=== PATIENT | male | born 1950 | race Caucasian/White ===

== ENCOUNTER 2016-10-31 16:05 | Inpatient (IN) | payer OTHER ==
[~2016-10-31] VITALS: Ht 170.2 cm; Wt 64.0 kg
[~2016-10-31 16:05] MED LIST: ARIP30 PO; ASPI325T PO; BENZ1TAB PO; LACT12%T TOPICAL; LITH450 PO; LOTR15T TOPICAL; METF500 PO; NOVOLOGSS SQ; SALS500T PO; TRAZ50TA78 PO
[2016-10-31 16:14] VITALS: BP 130/70; PULSE 64; RESP 20; TEMP 97; O2SAT 96
[2016-10-31 16:15] VITALS: BP 141/67; PULSE 62; RESP 16; O2SAT 96
[2016-10-31] MEDS ORDERED: BENZ2TAB PO (16:27)
[2016-10-31] MEDS ORDERED: ASPI325T PO (16:27)
[2016-10-31] MEDS ORDERED: PRIL20CA9 PO (16:27)
[2016-10-31] MEDS ORDERED: SALS500T PO (16:27)
[2016-10-31] MEDS ORDERED: LITH450T PO (16:27)
[2016-10-31] MEDS ORDERED: LAC-12LO3 TOPICAL (16:27)
[2016-10-31 17:00] VITALS: BP 136/66; PULSE 67; RESP 16; O2SAT 98
--- NOTE | 2016-10-31 17:19 | PD ---
HPI Chief Complaint: Psychiatric Symptoms Time Seen by Provider: 17:03 Travel History International Travel<30 days: No Contact w/Intl Traveler<30days: No Traveled to known affect area: No History of Present Illness HPI 66yo M with PMH of schizophrenia, DM presents to the ED under Wills Act for refusing medication and care, yelling out at roommate and staff. Pt is from [facility] and has been here for schizophrenia several times. Pt follows commands but not answering questions. No signs of trauma on him. VS stable. PFSH Past Medical History Arthritis: No Asthma: No Atrial Fibrillation: Yes Bipolar Disorder: Yes Anxiety: Yes Depression: Yes Heart Rhythm Problems: Yes Cardiovascular Problems: Yes High Cholesterol: Yes Chest Pain: No Congestive Heart Failure: No COPD: Yes Cerebrovascular Accident: No Dementia: Yes Diabetes: Yes Patient Takes Glucophage: Yes Diminished Hearing: No Endocrine: Yes Gastrointestinal Disorders: Yes GERD: Yes Genitourinary: No Hiatal Hernia: No Hypertension: Yes Immune Disorder: No Implanted Vascular Access Dvce: No Musculoskeletal: No Neurologic: Yes Psychiatric: Yes (paranoid schizophrenia ) Reproductive: No Respiratory: Yes Immunizations Current: Yes Migraines: No Pneumonia: Yes Schizophrenia: Yes Sleep Apnea: No Thyroid Disease: No Triglycerides - High: Yes Ulcer: No Tetanus Vaccination: Unknown PNEUMOCCOCAL Vaccine (Year): 2 Past Surgical History Abdominal Surgery: No Cardiac Surgery: No Ear Surgery: No Endocrine Surgery: No Eye Surgery: No Genitourinary Surgery: No Gynecologic Surgery: No Oral Surgery: No Thoracic Surgery: No Other Surgery: Yes Family History Family Hypercholesterolemia: Yes Social History Alcohol Use: No (UNKNOWN) Tobacco Use: Yes (UNKNOWN) Substance Use: No (mikey) Allergies-Medications (Allergen,Severity, Reaction): Coded Allergies: Calamine (Verified Allergy, Severe, 10/31/16) Olanzapine (Verified Allergy, Intermediate, THROMBOCYTOPENIA, 10/31/16) Reported Meds & Prescriptions Reported Meds & Active Scripts Active Keflex (Cephalexin) 500 Mg Cap 500 Mg PO Q12H 7 Days Reported Sperry Carbonate ER (Sperry Carbonate) 450 Mg Tab 450 Mg PO HS Salsalate 500 Mg Tab 1,000 Mg PO TID Benztropine (Benztropine Mesylate) 2 Mg Tab 2 Mg PO DAILY Aspirin 325 Mg Tab 325 Mg PO DAILY Prilosec (Omeprazole) 20 Mg Cap 30 Mg PO DAILY Review of Systems Except as stated in HPI: all other systems reviewed are Neg Physical Exam Narrative GENERAL: 66yo M not in distress. SKIN: Warm and dry. HEAD: Atraumatic. Normocephalic. EYES: Pupils equal and round. EOMI. No scleral icterus. No injection or drainage. ENT: No nasal bleeding or discharge. Mucous membranes pink and moist. NECK: Trachea midline. No JVD. CARDIOVASCULAR: Regular rate and rhythm. No murmur appreciated. RESPIRATORY: No accessory muscle use. Clear to auscultation. Breath sounds equal bilaterally. GASTROINTESTINAL: Abdomen soft, non-tender, nondistended. No rebound tenderness or guarding. MUSCULOSKELETAL: No obvious deformities. No clubbing. No cyanosis. No edema. NEUROLOGICAL: Awake and alert. Following commands but not answering questions so neuro exam is limited. PSYCHIATRIC: Inappropriate mood and affect; poor insight and judgment. Data Data Last Documented VS Vital Signs Date Time Temp Pulse Resp B/P Pulse Ox O2 Delivery O2 Flow Rate FiO2 11/01/16 02:11 70 18 130/62 97 Room Air 10/31/16 16:14 97.0 Orders Complete Blood Count With Diff (10/31/16 17:05) Comprehensive Metabolic Panel (10/31/16 17:05) Urinalysis - C+S If Indicated (10/31/16 17:05) Psych Screen (10/31/16 17:05) Urine Culture (10/31/16 17:00) Ceftriaxone Inj (Rocephin Inj) (10/31/16 18:45) Alcohol (Ethanol) (10/31/16 19:19) Drug Screen, Random Urine (10/31/16 19:19) Sperry (Li) (10/31/16 22:11) Salicylates (Aspirin) (10/31/16 22:12) Admit Order (Ed Use Only) (11/01/16 ) Labs Laboratory Tests Test 10/31/16 10/31/16 17:00 22:20 Sodium Level 136 MEQ/L Potassium Level 4.7 MEQ/L Chloride Level 106 MEQ/L Carbon Dioxide Level 23.7 MEQ/L Anion Gap 6 MEQ/L Blood Urea Nitrogen 10 MG/DL Creatinine 0.87 MG/DL Estimat Glomerular Filtration 88 ML/MIN Rate Random Glucose 142 MG/DL Calcium Level 9.4 MG/DL Total Bilirubin 0.7 MG/DL Aspartate Amino Transf 27 U/L (AST/SGOT) Alanine Aminotransferase 37 U/L (ALT/SGPT) Alkaline Phosphatase 105 U/L Total Protein 7.1 GM/DL Albumin 3.7 GM/DL Urine Opiates Screen NEG Urine Barbiturates Screen NEG Urine Amphetamines Screen NEG Urine Benzodiazepines Screen NEG Urine Cocaine Screen NEG Urine Cannabinoids Screen NEG Ethyl Alcohol Level LESS THAN 3 MG/DL White Blood Count 8.4 TH/MM3 Red Blood Count 4.46 MIL/MM3 Hemoglobin 13.9 GM/DL Hematocrit 41.4 % Mean Corpuscular Volume 92.7 FL Mean Corpuscular Hemoglobin 31.2 PG Mean Corpuscular Hemoglobin 33.7 % Concent Red Cell Distribution Width 14.1 % Platelet Count 313 TH/MM3 Mean Platelet Volume 7.5 FL Neutrophils (%) (Auto) 66.9 % Lymphocytes (%) (Auto) 19.4 % Monocytes (%) (Auto) 7.9 % Eosinophils (%) (Auto) 4.9 % Basophils (%) (Auto) 0.9 % Neutrophils # (Auto) 5.7 TH/MM3 Lymphocytes # (Auto) 1.6 TH/MM3 Monocytes # (Auto) 0.7 TH/MM3 Eosinophils # (Auto) 0.4 TH/MM3 Basophils # (Auto) 0.1 TH/MM3 CBC Comment DIFF FINAL Differential Comment Urine Color YELLOW Urine Turbidity HAZY Urine pH 6.5 Urine Specific [place] 1.013 Urine Protein 30 mg/dL Urine Glucose (UA) NEG mg/dL Urine Ketones NEG mg/dL Urine Occult Blood SMALL Urine Nitrite NEG Urine Bilirubin NEG Urine Urobilinogen LESS THAN 2.0 MG/DL Urine Leukocyte Esterase LARGE Urine RBC 7 /hpf Urine WBC /hpf Urine WBC Clumps MANY Urine Squamous Epithelial <1 /hpf Cells Urine Amorphous Sediment OCC Urine Bacteria FEW /hpf Microscopic Urinalysis Comment CATH-CULTURE IND Salicylates Level 5.4 MG/DL Sperry Level 0.3 MEQ/L [facility] Medical Decision Making Medical Screen Exam Complete: Yes Emergency Medical Condition: Yes Differential Diagnosis Schizophrenic vs. psychosis vs. UTI vs. electrolyte abnormality Narrative Course 66yo M with schizophrenia here as wills act because he was not taking his medication and being violent. Pt is calm here and following commands but will not answer my questions. He did mumble something in frustration when I persisted in my questioning. Labs reviewed, no leukocytosis. Creatinine normal. UA showed large leukocyte. Pt given ceftriaxone 1gm IV. VS stable. Pt is medically clear for psych evaluation. Diagnosis Primary Impression: Schizophrenia Qualified Code: F20.9 - Schizophrenia, unspecified type Additional Impression: UTI (urinary tract infection) Qualified Code: N39.0 - Urinary tract infection with hematuria, site unspecified Med/Other Pt SpecificInfo: Prescription(s) given Scripts Cephalexin (Keflex)500 Mg [id number] Mg PO Q12H 7 Days Ref 0 Prov:Brittney Robertson DO 10/31/16 Brittney Robertson DO Oct 31, 2016 17:19
[2016-10-31 17:26] LABS: AUTOMATED NEUTROPHIL # 5.7 TH/MM3 (1.8-7.7); BASOPHIL # 0.1 TH/MM3 (0-0.2); BASOPHIL % 0.9 % (0.0-2.0); EOSINOPHIL # 0.4 TH/MM3 (0-0.4); EOSINOPHIL % 4.9 % (0.0-4.0); HEMATOCRIT 41.4 % (39.0-51.0); HEMO FLAGS DIFF FINAL; LYMPH % 19.4 % (9.0-44.0); LYMPHOCYTE # 1.6 TH/MM3 (1.0-4.8); MEAN CELL VOLUME 92.7 FL (80.0-100.0); MEAN CORPUSCULAR HEMOGLOBIN 31.2 PG (27.0-34.0); MEAN CORPUSCULAR HGB CONC 33.7 % (32.0-36.0); MONO % 7.9 % (0.0-8.0); NEUT % 66.9 % (16.0-70.0); PLATELET COUNT 313 TH/MM3 (150-450); RED BLOOD COUNT 4.46 MIL/MM3 (4.50-5.90); RED CELL DISTRIBUTION WIDTH 14.1 % (11.6-17.2); WHITE BLOOD COUNT 8.4 TH/MM3 (4.0-11.0)
[2016-10-31 17:38] LABS: BACTERIA, URINE FEW /hpf; BLOOD, URINE SMALL (NEG); COMMENT (UR) CATH-CULTURE IND; CULTURE IF INDICATED CATH CULTURE IND; GLUCOSE,URINE NEG (NEG); KETONE, URINE NEG (NEG); NITRITE,URINE NEG (NEG); PH, URINE 6.5 (5.0-8.5); SQUAMOUS EPITHELIAL CELL URINE <1 /hpf (0-5); URINE COLOR YELLOW (YELLW/STRAW)
[2016-10-31 17:58] LABS: ALKALINE PHOSPHATASE 105 U/L (45-117); TOTAL BILIRUBIN ADULT 0.7 MG/DL (0.2-1.0)
[2016-10-31 18:00] VITALS: BP 129/85; PULSE 66; RESP 16; O2SAT 98
[2016-10-31 18:07] LABS: ALT (GPT) 37 U/L (12-78); ANION GAP 6 MEQ/L (5-15); AST (GOT) 27 U/L (15-37); BICARBONATE 23.7 MEQ/L (21.0-32.0); BLOOD UREA NITROGEN 10 MG/DL (7-18); CHLORIDE 106 MEQ/L (98-107); GLOMERULAR FILTRATION RATE 88 ML/MIN (>89); SODIUM (NA) 136 MEQ/L (136-145)
[2016-10-31 18:10] LABS: POTASSIUM 4.7 MEQ/L (3.5-5.1)
[2016-10-31] MEDS ORDERED: CEPH-460 PO (18:37)
[2016-10-31] MEDS ORDERED: cefTRIAXone INJ 1,000 MG in SODIUM CHLORIDE 0.9% INJ 100 ML IV ONE (18:45)
[2016-10-31 19:04] VITALS: BP 128/70; PULSE 66; RESP 14; O2SAT 95
[2016-10-31 19:56] LABS: AMPHETAMINE, URINE NEG (NEG); BARBITURATES, URINE NEG (NEG); COCAINE, URINE NEG (NEG)
[2016-10-31 22:14] VITALS: BP 122/63; PULSE 68; RESP 20; O2SAT 96
[2016-11-01 02:11] VITALS: BP 130/62; PULSE 70; RESP 18; O2SAT 97
[2016-11-01] MEDS ORDERED: ACETAMINOPHEN 325 MG TAB PO PRN (07:45)
[2016-11-01] MEDS ORDERED: BENZTROPINE MESYLATE 2 MG/2 ML VIAL IM PRN (07:45)
[2016-11-01] MEDS ORDERED: ALUMINUM/MAGNESIUM/SIMETH 30 ML CUP PO PRN (07:45)
[2016-11-01] MEDS ORDERED: traZODone HCL 50 MG TAB PO PRN (07:45)
[2016-11-01] MEDS ORDERED: BENZTROPINE MESYLATE 1 MG TAB PO PRN (07:45)
[2016-11-01] MEDS ORDERED: LORazepam 2 MG/ML VIAL IM PRN (07:45)
[2016-11-01] MEDS ORDERED: MAGNESIUM HYDROXIDE SUSP 30 ML CUP PO PRN (07:45)
--- NOTE | 2016-11-01 08:02 | HHI.HP ---
Provisional Diagnosis Admission Date 11/01/2015 [place] I. 1. Schizoaffective disorder, bipolar type, acute exacerbation Rule out component of delirium from UTI 2. Dementia [place] II. Deferred [place] V. GAF is 20 presently Certification of Person's Competence To Provide Express and Informed Consent I have personally examined Chavez Carpio , a person being served at [facility] on, Nov 01, 2016 07:42. Express and informed consent means consent voluntarily given in writing, by a competent person, after sufficient explanation and disclosure of the subject matter involved to enable the person to make a knowing and willful decision without any element of force, fraud, deceit, duress, or other form of constraint or coercion. This person is 18 years of age or older, is not now known to be incompetent to consent to treatment with a guardian advocate, and does not have a health care surrogate or proxy currently making medical treatment decisions. I have found this person to be one of the following: [] Competent to provide express and informed consent, as defined above, for voluntary admission to this facility and is competent to provide express and informed consent for treatment. He/she has the consistent capacity to make well reasoned, willful, and knowing decisions concerning his or her medical or mental health treatment. The person fully and consistently understands the purpose of the admission for examination/placement and is fully capable of personally exercising all rights assured [place] [x] Incompetent to provide express and informed consent to voluntary admission, and this is incompetent to provide express and informed consent to treatment. The person must be transferred to involuntary status and a petition for a guardian advocate filed with the Circuit Court. [] Refusing to provide express and informed consent to voluntary admission but is competent to provide express and informed consent for treatment. The person must be discharged or transferred to involuntary status. Form shall be completed within 24 hours of a person's arrival at the receiving facility and filed in the clinical record of each person: 1. Admitted on a voluntary basis 2. Permitted to provide express and informed consent to his/her own treatment 3. Allowed to transfer from involuntary to voluntary status 4. Prior to permitting a person to consent to his or her own treatment after having been previously found incompetent to consent to treatment. History of Present Illness Capacity: Lacks Capacity HPI Mr. Carpio is a 66-year-old male with a history of schizoaffective disorder, dementia and history of alcohol use disorder who presents under a Wills act by non-psychiatric physician Ewa Reich alleging that the patient is refusing medications and care, yelling at roommate, peers and staff and is acutely agitated. Patient is well known to the psychiatric service here and has multiple prior psychiatric hospitalizations, most recently in May of last year. Electronic medical record reviewed. Patient seen and examined. Chart reviewed. Case discussed with nurse in the J- pod. On my examination today, the patient is volitionally mute. There is some stupor but no waxy flexibility or posturing/stereotypies or other features of catatonia. He appears internally preoccupied. Affect is somewhat dysphoric. He does not voice any suicidal or homicidal ideation. He does endeavor to follow simple commands. The only speech that I am able to get from him is with extended questioning when he says in apparent frustration "Oh, God" and huddles under the covers. Psychiatric interview is limited by patient's inability or unwillingness to participate in interview. I am unable to obtain any past psychiatric, family, chemical dependency or social history from this patient at this time for this reason as well, although these data are amply documented in the medical record. I did place a call to patient's [facility] at [phone]. No answer. Left a voicemail requesting a call back. Review of Systems ROS Limitations: Uncooperative, Poor Historian Other Unable to obtain. Past Psych History Psychological trauma history Unable to obtain Substance Abuse History Drugs/Alcohol past 12 months Unable to obtain. UTox neg and EtOH undetectable. Past Family Social History Coded Allergies: Calamine (Verified Allergy, Severe, 10/31/16) Olanzapine (Verified Allergy, Intermediate, THROMBOCYTOPENIA, 10/31/16) Past Medical History See EMR. Active Scripts Cephalexin (Keflex)500 Mg [id number] Mg PO Q12H 7 Days Ref 0 Prov:Brittney Robertson DO 10/31/16 Reported Medications [place] Carbonate ER 450 Mg [id number] Mg PO HS Ref 0 10/31/16 Salsalate 500 Mg Tab1,000 Mg PO TID #180 TAB Ref 0 10/31/16 Benztropine 2 Mg Tab2 Mg PO DAILY #60 TAB Ref 0 10/31/16 Aspirin 325 Mg [id number] Mg PO DAILY #30 TAB Ref 0 10/31/16 Omeprazole (Prilosec)20 Mg Cap30 Mg PO DAILY #30 CAP Ref 0 10/31/16 Discontinued Reported Medications Lactic Acid (Ammonium Lactate) (Lac-Hydrin)12% Lotn1 Applic TOPICAL BID #225 ML Ref 0 10/31/16 Current Medications Medications (Trade) Dose Ordered Sig/Ashanti Route Start Time Stop Time Status Last Admin (Aspirin) 325 mg DAILY PO 11/01/16 09:00 UNV (Cogentin) 2 mg DAILY PO 11/01/16 09:00 UNV (Keflex) 500 mg Q12H PO 11/01/16 07:45 UNV (Eskalith Sr) 450 mg HS PO 11/01/16 21:00 UNV Non-Formulary Medication 1,000 mg TID PO 11/01/16 09:00 UNV Family History Unable to obtain Social History Unable to obtain Patient's Strengths (min. 2) In a monitored setting. Retains some verbal fluency. Physical Exam Physical exam completed by ED provider. On my examination today, the patient appears to be in no acute physical distress. He is somewhat disheveled but otherwise well-nourished and well-developed. Except as above, no motoric abnormalities noted at this time. Labs and vital signs reviewed. Vital Signs Vital Signs Date Time Temp Pulse Resp B/P Pulse Ox O2 Delivery O2 Flow Rate FiO2 11/01/16 02:11 70 18 130/62 97 Room Air 10/31/16 16:14 97.0 Lab Results Item Value Date Time White Blood Count 8.4 TH/MM3 10/31/16 1700 Hemoglobin 13.9 GM/DL 10/31/16 1700 Platelet Count 313 TH/MM3 10/31/16 1700 Sodium Level 136 MEQ/L 10/31/16 1700 Potassium Level 4.7 MEQ/L 10/31/16 1700 Chloride Level 106 MEQ/L 10/31/16 1700 Carbon Dioxide Level 23.7 MEQ/L 10/31/16 1700 Blood Urea Nitrogen 10 MG/DL 10/31/16 1700 Creatinine 0.87 MG/DL 10/31/16 1700 Estimat Glomerular Filtration Rate 88 ML/MIN L 10/31/16 1700 Aspartate Amino Transf (AST/SGOT) 27 U/L 10/31/16 1700 Alanine Aminotransferase (ALT/SGPT) 37 U/L 10/31/16 1700 Alkaline Phosphatase 105 U/L 10/31/16 1700 [place] Level 0.3 MEQ/L L 10/31/16 2220 Toxicology negative and alcohol level undetectable. Urinalysis concerning for UTI. Urine culture pending. Mental Status Examination Patient is in hospital gown. He is fairly disheveled. He is somewhat stuporous and chiefly volitionally mute. No other motoric abnormalities noted. Unable to assess mood or thought content. He does appear internally preoccupied and his affect is restricted and dysphoric. He does not verbalize any suicidal or homicidal ideation but allegedly has been recently agitated and is unreliable to contract for safety. Insight and judgment are presently absent. Previous Suicide Attempts: No Previous Homicide Attempts: No Assessment & Plan Problem List: (1) Schizoaffective disorder, bipolar type ICD Code: F25.0 (2) Dementia ICD Code: F03.90 Assessment & Plan This is a 66-year-old male with psychiatric history as detailed above who presents from his assisted living facility under a Wills act. On my examination today the patient is stuporous and volitionally mute but per the Wills act was allegedly agitated and refusing medications at his facility. Patient has a history of similar behavior in the past when he is decompensated. I will plan to admit the patient to the inpatient psychiatric unit for safety , observation and stabilization. --Admit inpatient --Involuntary status. I've completed first opinion. Consult for second opinion. Request healthcare surrogate and guardian advocate. --Consult to the hospitalist for medical management of the patient including his UTI. In the meantime I will continue his Keflex as recommended by the ED provider and other medical medications. --Continue Abilify 30 mg daily, scheduled Cogentin and lithium at bedtime. --Patient is presently somewhat stuporous although he does not have other signs of catatonia. If catatonia should become more prominent, to consider IM Ativan. --Ativan as needed for anxiety, Cogentin as needed for EPS, trazodone as needed for sleep --Physical therapy consultation --Vitals every shift --Counselor to see --Disposition planning --Estimated length of stay: 10-13 days Discharge Planning Pending psychiatric stabilization Request HC Surrog/Guard Advoc?: Yes Shawn Parikh MD Nov 01, 2016 08:02
[2016-11-01] MEDS: ASPIRIN 325 MG TAB PO SCH (09:00)
[2016-11-01] MEDS ORDERED: SALSALATE PO SCH (09:00)
[2016-11-01] MEDS: ARIPiprazole 30 MG TAB PO SCH (09:00)
[2016-11-01] MEDS: BENZTROPINE MESYLATE 2 MG TAB PO SCH (09:00)
[2016-11-01] MEDS: NICOTINE 21 MG/24 HR PATCH T-DERMAL SCH (09:00)
[2016-11-01] MEDS: CEPHALEXIN MONOHYDRATE 500 MG CAP PO SCH ×2 (09:00→21:43)
[2016-11-01] MEDS ORDERED: DEXTROSE 50% IN WATER 50 ML VIAL(D50) IV PUSH PRN (09:15)
[2016-11-01] MEDS ORDERED: GLUCAGON 1 MG/ML VIAL OTHER PRN (09:15)
[2016-11-01 10:26] VITALS: BP 118/68; PULSE 73; RESP 18; O2SAT 94
[2016-11-01 10:30] VITALS: BP 133/74; PULSE 71; RESP 16; TEMP 98.1; O2SAT 96
[2016-11-01] MEDS: INSULIN ASPART SUPPLEMENTAL SCALE SQ SCH ×3 (12:08→20:51)
--- NOTE | 2016-11-01 12:32 | PD.CONS ---
HPI Service [facility] Consult Requested By Dr. Parikh Reason for Consult UTI assist with medical management [facility] Diagnoses: History of Present Illness This is a 66-year-old male patient with past medical history which includes dementia,schizophrenia, atrial fibrillation, diabetes mellitus, hypertension hyperlipidemia. Patient is currently sitting in a geriatric chair and inpatient psychiatric center. Patient responds to name but is unable to provide any meaningful information. Patient is unable to follow commands. Patient is minimally participating with exam went into to evaluate patient balls up fist and becomes rigid. Therefore information gathered from prior computerized charting. We've been consulted for assistance with UTI and medical management. Review of Systems ROS Limitations: Combative, Poor Historian Past Family Social History Allergies: Coded Allergies: Calamine (Verified Allergy, Severe, 10/31/16) Olanzapine (Verified Allergy, Intermediate, THROMBOCYTOPENIA, 10/31/16) Past Medical History Atrial fibrillation, diabetes mellitus, hypertension, hyperlipidemia Past Surgical History Unable to obtain at this time Reported Medications [place] Carbonate ER ([place] Carbonate) 450 Mg Tab 450 Mg PO HS Salsalate 500 Mg Tab 1,000 Mg PO TID Benztropine (Benztropine Mesylate) 2 Mg Tab 2 Mg PO DAILY Aspirin 325 Mg Tab 325 Mg PO DAILY Prilosec (Omeprazole) 20 Mg Cap 30 Mg PO DAILY Active Ordered Medications Current Medications Medications (Trade) Dose Ordered Sig/Ashanti Route Start Time Stop Time Status Last Admin (Aspirin) 325 mg DAILY PO 11/01/16 09:00 11/01/16 09:00 (Cogentin) 2 mg DAILY PO 11/01/16 09:00 11/01/16 09:00 (Keflex) 500 mg Q12H PO 11/01/16 09:00 11/01/16 09:00 (Eskalith Sr) 450 mg HS PO 11/01/16 21:00 Non-Formulary Medication 1,000 mg TID PO 11/01/16 09:00 Hold (Abilify) 30 mg DAILY PO 11/01/16 09:00 11/01/16 09:00 (Ativan) 0.5 mg Q12H PRN PO 11/01/16 07:45 (Ativan Inj) 0.5 mg Q12H PRN IM 11/01/16 07:45 (Tylenol) 650 mg Q4H PRN PO 11/01/16 07:45 (Milk Of Magnesia Liq) 30 ml DAILY PRN PO 11/01/16 07:45 (Mag-Al Plus Susp Liq) 30 ml Q6H PRN PO 11/01/16 07:45 (Habitrol 21 Mg Patch.24 Hr) 1 patch DAILY T-DERMAL 11/01/16 09:00 (Desyrel) 50 mg HS PRN PO 11/01/16 07:45 (Cogentin) 1 mg Q12H PRN PO 11/01/16 07:45 (Cogentin Inj) 1 mg Q12H PRN IM 11/01/16 07:45 Miscellaneous Information 1 DAILY T-DERMAL 11/02/16 09:00 (Glucophage) 500 mg BIDPC PO 11/01/16 18:00 (D50w (Vial) Inj) 25 ml UNSCH PRN IV PUSH 11/01/16 09:15 (Glucagon Inj) 1 mg UNSCH PRN OTHER 11/01/16 09:15 Family History Unable to obtain at this time Social History Prior to hospitalization patient was living in [facility] In review of records reports patient smokes one packs cigarettes per day Physical Exam Vital Signs Vital Signs Date Time Temp Pulse Resp B/P Pulse Ox O2 Delivery O2 Flow Rate FiO2 11/01/16 10:26 73 18 118/68 94 Room Air 11/01/16 02:11 70 18 130/62 97 Room Air 10/31/16 22:14 68 20 122/63 96 Room Air 10/31/16 19:24 66 14 10/31/16 19:04 66 14 128/70 95 Room Air 10/31/16 18:00 66 16 129/85 98 Room Air 10/31/16 17:01 67 16 10/31/16 17:00 67 16 136/66 98 Room Air 10/31/16 16:15 62 16 141/67 96 Room Air 10/31/16 16:14 97.0 64 20 130/70 96 Physical Exam GENERAL: This is a elderly 66 room male appears older than stated age, in no apparent distress. EYES: Extraocular motions intact. No scleral icterus. No injection or drainage. ENT: Nose without bleeding, purulent drainage or septal hematoma. Throat without erythema, tonsillar hypertrophy or exudate. Uvula midline. Airway patent. NECK: Trachea midline. No JVD CARDIOVASCULAR: Distant Regular rate and rhythm without murmurs, gallops, or rubs. RESPIRATORY: Diminished likely due to poor effort GASTROINTESTINAL: Abdomen soft, non-tender, nondistended. MUSCULOSKELETAL: Extremities without clubbing, cyanosis, or edema. No joint tenderness, effusion, or edema noted. No calf tenderness. NEUROLOGICAL: Awake. Unable to follow commands provide meaningful information. No focal deficits identified, 3-4 out of 5 muscle strength in all muscle groups. Laboratory Laboratory Tests Test 10/31/16 10/31/16 17:00 22:20 White Blood Count 8.4 Red Blood Count 4.46 Hemoglobin 13.9 Hematocrit 41.4 Mean Corpuscular Volume 92.7 Mean Corpuscular Hemoglobin 31.2 Mean Corpuscular Hemoglobin 33.7 Concent Red Cell Distribution Width 14.1 Platelet Count 313 Mean Platelet Volume 7.5 Neutrophils (%) (Auto) 66.9 Lymphocytes (%) (Auto) 19.4 Monocytes (%) (Auto) 7.9 Eosinophils (%) (Auto) 4.9 Basophils (%) (Auto) 0.9 Neutrophils # (Auto) 5.7 Lymphocytes # (Auto) 1.6 Monocytes # (Auto) 0.7 Eosinophils # (Auto) 0.4 Basophils # (Auto) 0.1 CBC Comment DIFF FINAL Differential Comment Urine Color YELLOW Urine Turbidity HAZY Urine pH 6.5 Urine Specific [place] 1.013 Urine Protein 30 Urine Glucose (UA) NEG Urine Ketones NEG Urine Occult Blood SMALL Urine Nitrite NEG Urine Bilirubin NEG Urine Urobilinogen LESS THAN 2.0 Urine Leukocyte Esterase LARGE Urine RBC 7 Urine WBC Urine WBC Clumps MANY Urine Squamous Epithelial <1 Cells Urine Amorphous Sediment OCC Urine Bacteria FEW Microscopic Urinalysis Comment CATH-CULTURE IND Sodium Level 136 Potassium Level 4.7 Chloride Level 106 Carbon Dioxide Level 23.7 Anion Gap 6 Blood Urea Nitrogen 10 Creatinine 0.87 Estimat Glomerular Filtration 88 Rate Random Glucose 142 Calcium Level 9.4 Total Bilirubin 0.7 Aspartate Amino Transf 27 (AST/SGOT) Alanine Aminotransferase 37 (ALT/SGPT) Alkaline Phosphatase 105 Total Protein 7.1 Albumin 3.7 Urine Opiates Screen NEG Urine Barbiturates Screen NEG Urine Amphetamines Screen NEG Urine Benzodiazepines Screen NEG Urine Cocaine Screen NEG Urine Cannabinoids Screen NEG Ethyl Alcohol Level LESS THAN 3 Salicylates Level 5.4 [place] Level 0.3 Date/Time Procedure Status Source Growth 10/31/16 17:00 Urine Culture Received Urine Catheterized Urine Pending Result Diagram: 10/31/16 1700 10/31/16 1700 Assessment and Plan Assessment and Plan This is a 66-year-old male patient with past medical history which includes atrial fibrillation, diabetes mellitus, hypertension hyperlipidemia. Patient is currently sitting in a geriatric chair and inpatient psychiatric center. Patient responds to name but is unable to provide any meaningful information. Patient is unable to follow commands. Patient is minimally participating with exam went into to evaluate patient balls up fist and becomes rigid. Therefore information gathered from prior computerized charting. We've been consulted for assistance with UTI and medical management. Urinary tract infection patient given Rocephin times one in emergency department and started on Keflex will continue 14 days Urinalysis reviewed await urine culture history of atrial fibrillation patient currently with regular rate and rhythm- no interventions at this time Continue aspirin daily Diabetes mellitus and prior possible stations patient has been on metformin will initiate metformin 500 mg twice a day with meals and start low-dose sliding scale insulin coverage continue to monitor Dementia continue Abilify History of hypertension per med reconciliation patient is not on any antihypertensives and blood pressure is within normal limits at this time Continue to monitor blood pressure trend History of hyperlipidemia according to med reconciliation patient is not on any statins Lipid profile pending Schizophrenia management per psychiatric team DVT prophylaxis early ambulation Discussed plan of care with patient, RN and Dr. Franco Discussed Condition With The exam, history, and the medical decision-making described in the above note were completed with the assistance of the mid-level provider. I reviewed and agree with the findings presented. I attest that I had a [id number] encounter with the patient on the same day, and personally performed and documented my assessment and findings in the medical record. Ivon Devi Nov 01, 2016 12:32 Ulysses Franco MD Nov 11, 2016 13:06
--- NOTE | 2016-11-01 13:18 | PD.CONS ---
Provisional Diagnosis Admission Date Nov 01, 2016 at 07:38 [place] I. 1. Schizoaffective disorder, bipolar type, acute exacerbation Rule out component of delirium from UTI 2. Dementia [place] II. Deferred [place] V. GAF is 20 presently History of Present Illness Service Psychiatry Consult Requested By Primary Care Physician [facility] HPI Mr. Carpio is a 66-year-old male with a history of schizoaffective disorder, dementia and history of alcohol use disorder who presents under a Wills act by non-psychiatric physician Ewa Reich alleging that the patient is refusing medications and care, yelling at roommate, peers and staff and is acutely agitated. Patient is well known to the psychiatric service here and has multiple prior psychiatric hospitalizations, most recently in May of last year. Electronic medical record reviewed. Patient seen and examined. Chart reviewed. Case discussed with nurse in the J- pod. On my examination today, the patient is volitionally mute. There is some stupor but no waxy flexibility or posturing/stereotypies or other features of catatonia. He appears internally preoccupied. Affect is somewhat dysphoric. He does not voice any suicidal or homicidal ideation. He does endeavor to follow simple commands. The only speech that I am able to get from him is with extended questioning when he says in apparent frustration "Oh, God" and huddles under the covers. Psychiatric interview is limited by patient's inability or unwillingness to participate in interview. I am unable to obtain any past psychiatric, family, chemical dependency or social history from this patient at this time for this reason as well, although these data are amply documented in the medical record. I did place a call to patient's [facility] at [phone]. No answer. Left a voicemail requesting a call back. 11/01/16 Above note dictated by Dr. Parikh reviewed and agreed with. Patient seen on unit with medical student Barbara, patient alert appears to recognize me though is quite selective in his responses with him mumbled one or 2 word responses markedly distracted glancing over his right shoulder as if responding to internal stimuli. Dr. parikh has signed first opinion petition supporting Wills act. I agree. Patient does meet criteria for involuntary psychiatric hospitalization under the Wills act. Thus I will cosign second opinion petition supporting Wills act Past Family Social History Coded Allergies: Calamine (Verified Allergy, Severe, 10/31/16) Olanzapine (Verified Allergy, Intermediate, THROMBOCYTOPENIA, 10/31/16) Active Scripts Cephalexin (Keflex)500 Mg [id number] Mg PO Q12H 7 Days Ref 0 Prov:Brittney Robertson DO 10/31/16 Reported Medications [place] Carbonate ER 450 Mg Weo125 Mg PO HS Ref 0 10/31/16 Salsalate 500 Mg Tab1,000 Mg PO TID #180 TAB Ref 0 10/31/16 Benztropine 2 Mg Tab2 Mg PO DAILY #60 TAB Ref 0 10/31/16 Aspirin 325 Mg [id number] Mg PO DAILY #30 TAB Ref 0 10/31/16 Omeprazole (Prilosec)20 Mg Cap30 Mg PO DAILY #30 CAP Ref 0 10/31/16 Discontinued Reported Medications Lactic Acid (Ammonium Lactate) (Lac-Hydrin)12% Lotn1 Applic TOPICAL BID #225 ML Ref 0 10/31/16 Current Medications Medications (Trade) Dose Ordered Sig/Ashanti Route Start Time Stop Time Status Last Admin (Aspirin) 325 mg DAILY PO 11/01/16 09:00 11/01/16 09:00 (Cogentin) 2 mg DAILY PO 11/01/16 09:00 11/01/16 09:00 (Keflex) 500 mg Q12H PO 11/01/16 09:00 11/01/16 09:00 (Eskalith Sr) 450 mg HS PO 11/01/16 21:00 Non-Formulary Medication 1,000 mg TID PO 11/01/16 09:00 Hold (Abilify) 30 mg DAILY PO 11/01/16 09:00 11/01/16 09:00 (Ativan) 0.5 mg Q12H PRN PO 11/01/16 07:45 (Ativan Inj) 0.5 mg Q12H PRN IM 11/01/16 07:45 (Tylenol) 650 mg Q4H PRN PO 11/01/16 07:45 (Milk Of Magnesia Liq) 30 ml DAILY PRN PO 11/01/16 07:45 (Mag-Al Plus Susp Liq) 30 ml Q6H PRN PO 11/01/16 07:45 (Habitrol 21 Mg Patch.24 Hr) 1 patch DAILY T-DERMAL 11/01/16 09:00 (Desyrel) 50 mg HS PRN PO 11/01/16 07:45 (Cogentin) 1 mg Q12H PRN PO 11/01/16 07:45 (Cogentin Inj) 1 mg Q12H PRN IM 11/01/16 07:45 Miscellaneous Information 1 DAILY T-DERMAL 11/02/16 09:00 (Glucophage) 500 mg BIDPC PO 11/01/16 18:00 (D50w (Vial) Inj) 25 ml UNSCH PRN IV PUSH 11/01/16 09:15 (Glucagon Inj) 1 mg UNSCH PRN OTHER 11/01/16 09:15 Patient's Strengths (min. 2) In a monitored setting. Retains some verbal fluency. Physical Exam Vital Signs Vital Signs Date Time Temp Pulse Resp B/P Pulse Ox O2 Delivery O2 Flow Rate FiO2 11/01/16 10:26 73 18 118/68 94 Room Air 10/31/16 16:14 97.0 Mental Status Examination Speech: Hesitant, Slow, Other (patient very little response hesitant slow minimal) Orientation: Person Memory: Impaired (describe) Thought Process: Loose Association Thought Content: Unremarkable Hallucination Type: Auditory (appears to be responding to internal stimuli) Attention and Concentration: Easily Distracted Suicidal Ideation: No Previous Suicide Attempts: No Homicidal Ideation: No Previous Homicide Attempts: No Insight: Poor Judgement: Poor Affect: Other (decreased range and intensity) Mood: Other (restricted) Motor Activity: Abnormal gait-specify Assessment & Plan Problem List: (1) Schizoaffective disorder, bipolar type ICD Code: F25.0 (2) Dementia ICD Code: F03.90 Assessment & Plan Estimated LOS: days Request HC Surrog/Guard Advoc?: Yes Ravi Fleming MD Nov 01, 2016 13:18
[2016-11-01] MEDS: metFORMIN HCL 500 MG TAB PO SCH (18:24)
[2016-11-01 18:41] VITALS: BP 125/70; PULSE 70; RESP 18; TEMP 98.5; O2SAT 95
[2016-11-01] MEDS: LITHIUM CARBONATE 450 MG CONTROLLED RELEASE TAB PO SCH (21:00)
[2016-11-02] MEDS: INSULIN ASPART SUPPLEMENTAL SCALE SQ SCH ×4 (06:20→22:22)
[2016-11-02] MEDS: ARIPiprazole 30 MG TAB PO SCH (09:00)
[2016-11-02] MEDS: CEPHALEXIN MONOHYDRATE 500 MG CAP PO SCH (09:00)
[2016-11-02] MEDS: ASPIRIN 325 MG TAB PO SCH (09:00)
[2016-11-02] MEDS: metFORMIN HCL 500 MG TAB PO SCH ×2 (09:00→22:22)
[2016-11-02] MEDS: BENZTROPINE MESYLATE 2 MG TAB PO SCH (09:00)
[2016-11-02] MEDS: REMOVE OLD PATCH T-DERMAL SCH (09:00)
[2016-11-02] MEDS: NICOTINE 21 MG/24 HR PATCH T-DERMAL SCH (09:00)
[2016-11-02 09:47] LABS: ANION GAP 7 MEQ/L (5-15); BICARBONATE 25.7 MEQ/L (21.0-32.0); BLOOD UREA NITROGEN 23 MG/DL (7-18); CHLORIDE 109 MEQ/L (98-107); GLOMERULAR FILTRATION RATE 103 ML/MIN (>89); HDL CHOLESTEROL 44.8 MG/DL (40.0-60.0); LDL CHOLESTEROL 120 MG/DL (0-99); POTASSIUM 4.1 MEQ/L (3.5-5.1); SODIUM (NA) 142 MEQ/L (136-145)
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
--- NOTE | 2016-11-02 13:45 | HHI.PR ---
Subjective Remarks Follow-up Urinary tract infection, diabetes mellitus, hyperlipidemia and history of atrial fibrillation. Patient seen an inpatient psychiatric day room. Continues to be confused- in no acute distress. Offers no medical complaints at this time Objective Vitals Vital Signs Date Time Temp Pulse Resp B/P Pulse Ox O2 Delivery O2 Flow Rate FiO2 11/01/16 18:41 98.5 70 18 125/70 95 I/O 11/01/16 11/01/16 11/01/16 11/02/16 11/02/16 11/02/16 07:00 15:00 23:00 07:00 15:00 23:00 Intake Total 1320 ml 0 ml 120 ml Balance 1320 ml 0 ml 120 ml Intake Oral 1320 ml 0 ml 120 ml # Voids 2 3 1 Result Diagram: 10/31/16 1700 11/02/16 0806 Objective Remarks GENERAL: This is a elderly 66 room male appears older than stated age, in no apparent distress. EYES: Extraocular motions intact. No scleral icterus. No injection or drainage. ENT: Nose without bleeding, purulent drainage or septal hematoma. Throat without erythema, tonsillar hypertrophy or exudate. Uvula midline. Airway patent. NECK: Trachea midline. No JVD CARDIOVASCULAR: Distant Regular rate and rhythm without murmurs, gallops, or rubs. RESPIRATORY: Diminished likely due to poor effort GASTROINTESTINAL: Abdomen soft, non-tender, nondistended. MUSCULOSKELETAL: Extremities without clubbing, cyanosis, or edema. No joint tenderness, effusion, or edema noted. No calf tenderness. NEUROLOGICAL: Awake. Unable to follow commands provide meaningful information. No focal deficits identified, 3-4 out of 5 muscle strength in all muscle groups. A/P Assessment and Plan This is a 66-year-old male patient with past medical history which includes atrial fibrillation, diabetes mellitus, hypertension hyperlipidemia. Patient is currently sitting in a geriatric chair and inpatient psychiatric center. Patient responds to name but is unable to provide any meaningful information. Patient is unable to follow commands. Patient is minimally participating with exam went into to evaluate patient balls up fist and becomes rigid. Therefore information gathered from prior computerized charting. We've been consulted for assistance with UTI and medical management. Urinary tract infection patient given Rocephin times one in emergency department and on Keflex Urinalysis reviewed await urine culture reveals Klebsiella pneumonia pansensitive DC Keflex and start Cipro 10 days history of atrial fibrillation patient currently with regular rate and rhythm- no interventions at this time Continue aspirin daily Diabetes mellitus and prior possible stations patient has been on metformin will initiate metformin 500 mg twice a day with meals and start low-dose sliding scale insulin coverage continue to monitor Dementia continue Abilify History of hypertension per med reconciliation patient is not on any antihypertensives and blood pressure is within normal limits at this time Continue to monitor blood pressure trend hyperlipidemia Lipid profile reviewed [id number] Patient also has DM ASCVD score 24% Start Lipitor 40 mg daily recommend patient follow up with PCP for further monitoring of lipids and LFT BUN elevated indicating dehydration Patient with poor by mouth intake please encourage by mouth fluid intake. Schizophrenia management per psychiatric team DVT prophylaxis early ambulation Patient appears medically stable will sign off if patient's condition changes or further assistance is needed please reconsult. Recommend patient follow up with PCP after discharge for further lipid monitoring as well as monitoring of LFTs. Also recommend patient complete total of 10 days of cipro Discussed plan of care with patient, RN and Ivon Tolliver Nov 02, 2016 13:45
[2016-11-02] MEDS ORDERED: LIPI40TA PO (15:52)
[2016-11-02] MEDS ORDERED: CIPR250T52 PO (17:17)
[2016-11-02 20:13] VITALS: BP 127/67; PULSE 70; RESP 18; TEMP 98.2; O2SAT 95
[2016-11-02] MEDS: ATORVASTATIN 40 MG TAB PO SCH (21:00)
[2016-11-02] MEDS: LITHIUM CARBONATE 450 MG CONTROLLED RELEASE TAB PO SCH (21:00)
[2016-11-02] MEDS ORDERED: ATORVASTATIN 10 MG TAB PO SCH (21:00)
[2016-11-02] MEDS: CIPROFLOXACIN 250 MG TAB PO SCH (22:22)
[2016-11-02] MEDS ORDERED: QUEtiapine FUMARATE 25 MG TAB PO ONE (22:30)
[2016-11-03] MEDS ORDERED: LORazepam 2 MG/ML VIAL IM ONE (01:15)
[2016-11-03 05:53] VITALS: BP 122/66; PULSE 64; RESP 16; TEMP 97.8; O2SAT 96
[2016-11-03] MEDS: INSULIN ASPART SUPPLEMENTAL SCALE SQ SCH ×4 (06:13→19:46)
[2016-11-03 08:48] VITALS: BP 122/66; PULSE 64; RESP 16; TEMP 97.8; O2SAT 96
[2016-11-03] MEDS: metFORMIN HCL 500 MG TAB PO SCH ×2 (09:00→18:00)
[2016-11-03] MEDS: NICOTINE 21 MG/24 HR PATCH T-DERMAL SCH (09:00)
[2016-11-03] MEDS: CIPROFLOXACIN 250 MG TAB PO SCH ×2 (09:00→20:19)
[2016-11-03] MEDS: ARIPiprazole 30 MG TAB PO SCH (09:00)
[2016-11-03] MEDS: REMOVE OLD PATCH T-DERMAL SCH (09:00)
[2016-11-03] MEDS: BENZTROPINE MESYLATE 2 MG TAB PO SCH (09:00)
[2016-11-03] MEDS: ASPIRIN 325 MG TAB PO SCH (09:00)
[2016-11-03 09:30] LABS: HEMOGLOBIN A1a 0.9 %; HEMOGLOBIN A1b 1.1 %; HEMOGLOBIN Ao 83.2 %; HEMOGLOBIN LA1C 2.7 %; HEMOGLOBIN P3 4.1 %
--- NOTE | 2016-11-03 10:23 | HHI.PYPN ---
Subjective Remarks Patient was seen and case discussed with nursing. Patient is more talkative compared to yesterday. He mumbles things that are nonsensical. He is responding to internal stimuli at times yelling at things that are not there. Sexually inappropriate wagging his tongue at nurses. Refuse medications last night but compliant this morning. Objective Alert: Yes [place]: Person Mood: Agitated Affect: Labile Memory Intact: Immediate (impaired) Hallucinations: Other (unknown) Delusions: No Delusion Type: Other (unknown) Suicidal: Ideation (would not answer) Homicidal: Ideation (would not answer) Insight/Judgement Poor Labs Date/Time Procedure Status Source Growth 10/31/16 17:00 Urine Culture - Final Complete Urine Catheterized Urine Klebsiella Pneumoniae Vitals/IOs Vital Signs Date Time Temp Pulse Resp B/P Pulse Ox O2 Delivery O2 Flow Rate FiO2 11/03/16 08:48 97.8 64 16 122/66 96 11/01/16 10:26 Room Air Intake and Output 11/02/16 11/02/16 11/03/16 08:00 16:00 00:00 Intake Total 0 ml 960 ml 480 ml Balance 0 ml 960 ml 480 ml Assessment & Plan Problem List: (1) Schizoaffective disorder, bipolar type ICD Code: F25.0 (2) Dementia ICD Code: F03.90 Assessment & Plan Continue current treatment plan Justification for Cont. Inpt. Patient will decompensate in a less restrictive setting Request HC Surrog/Guard Advoc?: Yes Rito Ramos DO Nov 03, 2016 10:23
[2016-11-03 18:42] VITALS: BP 122/68; PULSE 78; RESP 16; O2SAT 70
[2016-11-03] MEDS: LITHIUM CARBONATE 450 MG CONTROLLED RELEASE TAB PO SCH (20:19)
[2016-11-03] MEDS: ATORVASTATIN 40 MG TAB PO SCH (20:20)
[2016-11-04 06:08] VITALS: BP 97/64; PULSE 103; RESP 17; TEMP 97.5; O2SAT 98
[2016-11-04] MEDS: INSULIN ASPART SUPPLEMENTAL SCALE SQ SCH ×4 (06:09→20:33)
[2016-11-04] MEDS: REMOVE OLD PATCH T-DERMAL SCH (09:00)
[2016-11-04] MEDS: ARIPiprazole 30 MG TAB PO SCH (09:00)
[2016-11-04] MEDS: NICOTINE 21 MG/24 HR PATCH T-DERMAL SCH (09:00)
[2016-11-04] MEDS: BENZTROPINE MESYLATE 2 MG TAB PO SCH (09:21)
[2016-11-04] MEDS: metFORMIN HCL 500 MG TAB PO SCH ×2 (09:21→18:03)
[2016-11-04] MEDS: ASPIRIN 325 MG TAB PO SCH (09:21)
[2016-11-04] MEDS: CIPROFLOXACIN 250 MG TAB PO SCH ×2 (09:21→20:41)
--- NOTE | 2016-11-04 17:25 | HHI.PYPN ---
Subjective Remarks Patient discussed with treatment team and medical student Barbara, chart reviewed, patient unit. Patient more alert today though continues markedly confused disoriented labile at times somewhat irritable. He is compliant with his medications. Review of Systems Except as stated in HPI: all other systems reviewed are Neg Objective Alert: Yes [place]: Person Mood: Agitated Affect: Labile Memory Intact: Immediate (impaired) Hallucinations: Other (unknown) Delusions: No Delusion Type: Other (unknown) Suicidal: Ideation (would not answer) Homicidal: Ideation (would not answer) Insight/Judgement Very poor Labs Date/Time Procedure Status Source Growth 10/31/16 17:00 Urine Culture - Final Complete Urine Catheterized Urine Klebsiella Pneumoniae Vitals/IOs Vital Signs Date Time Temp Pulse Resp B/P Pulse Ox O2 Delivery O2 Flow Rate FiO2 11/04/16 06:08 97.5 103 17 97/64 98 11/01/16 10:26 Room Air Intake and Output 11/03/16 11/03/16 11/04/16 08:00 16:00 00:00 Intake Total 480 ml 480 ml Balance 480 ml 480 ml Assessment & Plan Problem List: (1) Schizoaffective disorder, bipolar type ICD Code: F25.0 (2) Dementia ICD Code: F03.90 Assessment & Plan Estimated LOS: days patient continues demented irritable and labile at times, compliant medications Justification for Cont. Inpt. At this time patient would significantly decompensate if placed in a lower level of care Discharge Planning To be determined Request HC Surrog/Guard Advoc?: Yes Ravi Fleming MD Nov 04, 2016 17:25
[2016-11-04 18:00] VITALS: BP 138/70; PULSE 82; RESP 16; TEMP 97.6; O2SAT 98
[2016-11-04] MEDS ORDERED: LORazepam 2 MG/ML VIAL IM ONE (18:00)
[2016-11-04] MEDS: ATORVASTATIN 40 MG TAB PO SCH (20:41)
[2016-11-05] MEDS ORDERED: LORazepam 2 MG/ML VIAL IM PRN
[2016-11-05] MEDS: INSULIN ASPART SUPPLEMENTAL SCALE SQ SCH ×4 (05:33→20:39)
[2016-11-05 05:36] VITALS: BP 113/71; PULSE 74; RESP 15; TEMP 97.7; O2SAT 94
[2016-11-05] MEDS: ASPIRIN 325 MG TAB PO SCH (08:51)
[2016-11-05] MEDS: BENZTROPINE MESYLATE 2 MG TAB PO SCH (08:51)
[2016-11-05] MEDS: metFORMIN HCL 500 MG TAB PO SCH ×2 (08:51→18:36)
[2016-11-05] MEDS: CIPROFLOXACIN 250 MG TAB PO SCH ×2 (08:51→20:38)
[2016-11-05] MEDS: REMOVE OLD PATCH T-DERMAL SCH (09:00)
[2016-11-05] MEDS: NICOTINE 21 MG/24 HR PATCH T-DERMAL SCH (09:00)
--- NOTE | 2016-11-05 12:00 | HHI.PYPN ---
Subjective Remarks He should seen on unit with nurse Maritza, patient more alert focused on me today though loud angry irritable calling me "isabell Butler". We continue to wait health care surrogate her guardian advocate to continue with his psychotropic medications. Review of Systems Except as stated in HPI: all other systems reviewed are Neg Objective Alert: Yes [place]: Person Mood: Agitated Affect: Labile Memory Intact: Immediate (impaired) Hallucinations: Other (unknown) Delusions: No Delusion Type: Other (unknown) Suicidal: Ideation (would not answer) Homicidal: Ideation (would not answer) Insight/Judgement Very poor Labs Date/Time Procedure Status Source Growth 10/31/16 17:00 Urine Culture - Final Complete Urine Catheterized Urine Klebsiella Pneumoniae Vitals/IOs Vital Signs Date Time Temp Pulse Resp B/P Pulse Ox O2 Delivery O2 Flow Rate FiO2 11/05/16 05:36 97.7 74 15 113/71 94 11/01/16 10:26 Room Air Intake and Output 11/04/16 11/04/16 11/05/16 08:00 16:00 00:00 Intake Total 240 ml 580 ml Balance 240 ml 580 ml Assessment & Plan Problem List: (1) Schizoaffective disorder, bipolar type ICD Code: F25.0 (2) Dementia ICD Code: F03.90 Assessment & Plan Estimated LOS: days patient continues demented confused labile and angry. Responding hands on the tray with his Jessi chair. We'll wait permission from guardian advocate/health care surrogate to initiate and renewal his psychotropics Justification for Cont. Inpt. At this time patient was significantly decompensated if placed in the lower level of care Discharge Planning To be determined Request HC Surrog/Guard Advoc?: Yes Ravi Fleming MD Nov 05, 2016 12:00
[2016-11-05 20:29] VITALS: BP 112/62; PULSE 80; RESP 18; TEMP 98.1; O2SAT 98
[2016-11-05] MEDS: ATORVASTATIN 40 MG TAB PO SCH (20:38)
[2016-11-06 05:38] VITALS: BP 121/58; PULSE 73; RESP 16; TEMP 98.5; O2SAT 95
[2016-11-06] MEDS: INSULIN ASPART SUPPLEMENTAL SCALE SQ SCH ×4 (06:40→21:00)
[2016-11-06] MEDS: metFORMIN HCL 500 MG TAB PO SCH ×2 (08:09→17:27)
[2016-11-06] MEDS: BENZTROPINE MESYLATE 2 MG TAB PO SCH (08:09)
[2016-11-06] MEDS: CIPROFLOXACIN 250 MG TAB PO SCH ×2 (08:09→21:03)
[2016-11-06] MEDS: ASPIRIN 325 MG TAB PO SCH (08:10)
[2016-11-06] MEDS: REMOVE OLD PATCH T-DERMAL SCH (08:11)
[2016-11-06] MEDS: NICOTINE 21 MG/24 HR PATCH T-DERMAL SCH (08:11)
--- NOTE | 2016-11-06 15:05 | HHI.PYPN ---
Subjective Remarks Is seen in his room continues somewhat vigilant and guarded continues to call me "isabell Butler" no other somewhat of a smile on his face. Patient showing some mixed compliance with medication. Did discuss the fact that we'll be going to [facility] tomorrow he appeared to process that fairly well. For now continue treatment continue to wait [facility] to get guardian advocate Review of Systems Except as stated in HPI: all other systems reviewed are Neg Objective Alert: Yes [place]: Person Mood: Agitated Affect: Labile Memory Intact: Immediate (impaired) Hallucinations: Other (unknown) Delusions: No Delusion Type: Other (unknown) Suicidal: Ideation (would not answer) Homicidal: Ideation (would not answer) Insight/Judgement Very poor Vitals/IOs Vital Signs Date Time Temp Pulse Resp B/P Pulse Ox O2 Delivery O2 Flow Rate FiO2 11/06/16 05:38 98.5 73 16 121/58 95 Intake and Output 11/05/16 11/05/16 11/06/16 08:00 16:00 00:00 Intake Total 240 ml 960 ml 360 ml Balance 240 ml 960 ml 360 ml Assessment & Plan Problem List: (1) Schizoaffective disorder, bipolar type ICD Code: F25.0 (2) Dementia ICD Code: F03.90 Assessment & Plan Estimated LOS: days patient continues confused demented, the nausea for behavioral problem, showing poor compliance medication. Scheduled for [facility] tomorrow Justification for Cont. Inpt. At this time patient would decompensate if placed a lower level of care Discharge Planning To be determined Request HC Surrog/Guard Advoc?: Yes Ravi Fleming MD Nov 06, 2016 15:05
[2016-11-06 18:00] VITALS: BP 121/68; PULSE 82; RESP 16; TEMP 98.7; O2SAT 95
[2016-11-06] MEDS: ATORVASTATIN 40 MG TAB PO SCH (21:03)
[2016-11-07] MEDS: INSULIN ASPART SUPPLEMENTAL SCALE SQ SCH ×4 (06:30→21:00)
[2016-11-07 06:38] VITALS: BP 116/67; PULSE 70; RESP 17; TEMP 98.2; O2SAT 100
[2016-11-07] MEDS: BENZTROPINE MESYLATE 2 MG TAB PO SCH (08:12)
[2016-11-07] MEDS: ASPIRIN 325 MG TAB PO SCH (08:12)
[2016-11-07] MEDS: CIPROFLOXACIN 250 MG TAB PO SCH ×2 (08:12→21:16)
[2016-11-07] MEDS: metFORMIN HCL 500 MG TAB PO SCH ×2 (08:13→17:05)
[2016-11-07] MEDS: REMOVE OLD PATCH T-DERMAL SCH (08:59)
[2016-11-07] MEDS: NICOTINE 21 MG/24 HR PATCH T-DERMAL SCH (08:59)
--- NOTE | 2016-11-07 15:26 | HHI.PYPN ---
Subjective Remarks Patient seen [place] [address], retained by Safety Manager Saurabh. Patient remained loud labile during court continue to call me "srinivasan Butler" patient also irritable and somewhat disrespectful and intrusive with Safety Manager Saurabh. He continued that way when brought back onto the unit. Being somewhat cynical sarcastic intrusive and insulting. Patient is compliant with his medications for now continue treatment Review of Systems Except as stated in HPI: all other systems reviewed are Neg Objective Alert: Yes [place]: Person Mood: Agitated Affect: Labile Memory Intact: Immediate (impaired) Hallucinations: Other (unknown) Delusions: No Delusion Type: Other (unknown) Suicidal: Ideation (would not answer) Homicidal: Ideation (would not answer) Insight/Judgement Very poor Vitals/IOs Vital Signs Date Time Temp Pulse Resp B/P Pulse Ox O2 Delivery O2 Flow Rate FiO2 11/07/16 06:38 98.2 70 17 116/67 100 Intake and Output 11/06/16 11/06/16 11/07/16 08:00 16:00 00:00 Intake Total 1200 ml 840 ml Balance 1200 ml 840 ml Assessment & Plan Problem List: (1) Schizoaffective disorder, bipolar type ICD Code: F25.0 (2) Dementia ICD Code: F03.90 Assessment & Plan Patient continues confused demented loud and labile intrusive and disorganized, compliant medications for now continue treatment Justification for Cont. Inpt. At this time patient would significantly decompensated if placed in the lower level of care Discharge Planning To be determined Request HC Surrog/Guard Advoc?: Yes Ravi Fleming MD Nov 07, 2016 15:26
[2016-11-07 19:46] VITALS: BP 105/60; PULSE 72; RESP 17; TEMP 99.1; O2SAT 97
[2016-11-07] MEDS: ATORVASTATIN 40 MG TAB PO SCH (21:16)
[2016-11-08 06:00] VITALS: BP 108/63; PULSE 76; RESP 18; TEMP 98.1; O2SAT 96
[2016-11-08] MEDS: INSULIN ASPART SUPPLEMENTAL SCALE SQ SCH ×4 (06:21→21:02)
[2016-11-08] MEDS: NICOTINE 21 MG/24 HR PATCH T-DERMAL SCH (09:00)
[2016-11-08] MEDS: REMOVE OLD PATCH T-DERMAL SCH (09:00)
[2016-11-08] MEDS: ASPIRIN 325 MG TAB PO SCH (09:49)
[2016-11-08] MEDS: BENZTROPINE MESYLATE 2 MG TAB PO SCH (09:49)
[2016-11-08] MEDS: metFORMIN HCL 500 MG TAB PO SCH ×2 (09:49→17:55)
[2016-11-08] MEDS: CIPROFLOXACIN 250 MG TAB PO SCH ×2 (09:49→21:11)
[2016-11-08] MEDS: ARIPiprazole 30 MG TAB PO SCH (10:42)
--- NOTE | 2016-11-08 14:32 | HHI.PYPN ---
Subjective Remarks Patient seen in his room with floor staff, patient calm to irritable with me continues to call me "" isabell Butler" however overall compliant medications. For now continue treatment Review of Systems Except as stated in HPI: all other systems reviewed are Neg Objective Alert: Yes [place]: Person Mood: Agitated Affect: Labile Memory Intact: Immediate (impaired) Hallucinations: Other (unknown) Delusions: No Delusion Type: Other (unknown) Suicidal: Ideation (would not answer) Homicidal: Ideation (would not answer) Insight/Judgement Very poor Vitals/IOs Vital Signs Date Time Temp Pulse Resp B/P Pulse Ox O2 Delivery O2 Flow Rate FiO2 11/08/16 06:00 98.1 76 18 108/63 96 Intake and Output 11/07/16 11/07/16 11/08/16 08:00 16:00 00:00 Intake Total 1320 ml 960 ml Balance 1320 ml 960 ml Assessment & Plan Problem List: (1) Schizoaffective disorder, bipolar type ICD Code: F25.0 (2) Dementia ICD Code: F03.90 Assessment & Plan Estimated LOS: days patient continues demented confused and labile. Compliant medications Justification for Cont. Inpt. At this time patient decompensated placed in the lower level of care Discharge Planning To be determined Request HC Surrog/Guard Advoc?: Yes Ravi Fleming MD Nov 08, 2016 14:32
[2016-11-08 18:09] VITALS: BP 109/60; PULSE 74; RESP 18; TEMP 97.9; O2SAT 97
[2016-11-08] MEDS: LITHIUM CARBONATE 450 MG CONTROLLED RELEASE TAB PO SCH (21:11)
[2016-11-08] MEDS: ATORVASTATIN 40 MG TAB PO SCH (21:11)
[2016-11-09 06:11] VITALS: BP 153/78; PULSE 85; RESP 18; TEMP 97.9; O2SAT 94
[2016-11-09] MEDS: INSULIN ASPART SUPPLEMENTAL SCALE SQ SCH ×4 (06:42→20:20)
[2016-11-09] MEDS: NICOTINE 21 MG/24 HR PATCH T-DERMAL SCH (09:00)
[2016-11-09] MEDS: ARIPiprazole 30 MG TAB PO SCH (09:00)
[2016-11-09] MEDS: REMOVE OLD PATCH T-DERMAL SCH (09:00)
[2016-11-09] MEDS: ASPIRIN 325 MG TAB PO SCH (09:11)
[2016-11-09] MEDS: BENZTROPINE MESYLATE 2 MG TAB PO SCH (09:12)
[2016-11-09] MEDS: metFORMIN HCL 500 MG TAB PO SCH ×2 (09:12→17:01)
[2016-11-09] MEDS: CIPROFLOXACIN 250 MG TAB PO SCH ×2 (09:12→20:54)
[2016-11-09 18:00] VITALS: BP 119/60; PULSE 79; RESP 18; TEMP 98.1; O2SAT 99
--- NOTE | 2016-11-09 19:39 | HHI.PYPN ---
Subjective Remarks Pt seen and discussed with staff. Yesterday, staff report that pt made inappropriate bizarre sexual remarks to staff. Today, pt has been in better behavioral control. Compliant with medications. NO SI/HI. Objective Alert: Yes [place]: Person Mood: Other (exhuberant) Affect: Labile Memory Intact: Immediate (impaired) Hallucinations: Other (unknown) Delusions: No Delusion Type: Other (unknown) Suicidal: Ideation (would not answer) Homicidal: Ideation (would not answer) Insight/Judgement poor Vitals/IOs Vital Signs Date Time Temp Pulse Resp B/P Pulse Ox O2 Delivery O2 Flow Rate FiO2 11/09/16 18:00 98.1 79 18 119/60 99 Intake and Output 11/08/16 11/08/16 11/09/16 08:00 16:00 00:00 Intake Total 0 ml 1560 ml 480 ml Balance 0 ml 1560 ml 480 ml Assessment & Plan Problem List: (1) Schizoaffective disorder, bipolar type ICD Code: F25.0 (2) Dementia ICD Code: F03.90 Assessment & Plan Continue current tx plan. Estimated LOS: days Justification for Cont. Inpt. impairments in social functioning Request HC Surrog/Guard Advoc?: Yes Sidra Qauch MD Nov 09, 2016 19:39
[2016-11-09] MEDS: LITHIUM CARBONATE 450 MG CONTROLLED RELEASE TAB PO SCH ×2 (20:54→21:00)
[2016-11-09] MEDS: ATORVASTATIN 40 MG TAB PO SCH ×2 (20:54→21:00)
[2016-11-10 05:14] VITALS: BP 103/57; PULSE 69; RESP 18; TEMP 98.1; O2SAT 100
[2016-11-10] MEDS: INSULIN ASPART SUPPLEMENTAL SCALE SQ SCH ×4 (06:07→20:29)
[2016-11-10] MEDS: REMOVE OLD PATCH T-DERMAL SCH (09:00)
[2016-11-10] MEDS: ARIPiprazole 30 MG TAB PO SCH (09:00)
[2016-11-10] MEDS: NICOTINE 21 MG/24 HR PATCH T-DERMAL SCH (09:00)
[2016-11-10] MEDS: metFORMIN HCL 500 MG TAB PO SCH ×2 (09:49→18:49)
[2016-11-10] MEDS: ASPIRIN 325 MG TAB PO SCH (09:49)
[2016-11-10] MEDS: BENZTROPINE MESYLATE 2 MG TAB PO SCH (09:49)
[2016-11-10] MEDS: CIPROFLOXACIN 250 MG TAB PO SCH ×2 (09:51→20:56)
--- NOTE | 2016-11-10 19:46 | HHI.PYPN ---
Subjective Remarks Pt seen and discussed with staff. He has been intrusive with poor boundaries. No SI/HI. Compliant with medications. Objective Alert: Yes [place]: Person Mood: Other (exhuberant) Affect: Labile Memory Intact: Immediate (impaired) Hallucinations: Other (unknown) Delusions: No Delusion Type: Other (unknown) Suicidal: Ideation (would not answer) Homicidal: Ideation (would not answer) Insight/Judgement poor Vitals/IOs Vital Signs Date Time Temp Pulse Resp B/P Pulse Ox O2 Delivery O2 Flow Rate FiO2 11/10/16 05:14 98.1 69 18 103/57 100 Intake and Output 11/09/16 11/09/16 11/10/16 08:00 16:00 00:00 Intake Total 360 ml 1320 ml 960 ml Balance 360 ml 1320 ml 960 ml Assessment & Plan Problem List: (1) Schizoaffective disorder, bipolar type ICD Code: F25.0 (2) Dementia ICD Code: F03.90 Assessment & Plan Continue current tx plan. Estimated LOS: days Justification for Cont. Inpt. impairments in social functioning Request HC Surrog/Guard Advoc?: Yes Sidra Quach MD Nov 10, 2016 19:46
[2016-11-10 20:36] VITALS: BP 118/70; PULSE 78; RESP 22; TEMP 98.9; O2SAT 99
[2016-11-10] MEDS: ATORVASTATIN 40 MG TAB PO SCH (20:56)
[2016-11-10] MEDS: LITHIUM CARBONATE 450 MG CONTROLLED RELEASE TAB PO SCH (20:56)
[2016-11-11 05:45] VITALS: BP 115/77; PULSE 63; RESP 16; TEMP 97.8; O2SAT 98
[2016-11-11] MEDS: INSULIN ASPART SUPPLEMENTAL SCALE SQ SCH ×4 (06:10→20:59)
[2016-11-11] MEDS: REMOVE OLD PATCH T-DERMAL SCH (09:00)
[2016-11-11] MEDS: NICOTINE 21 MG/24 HR PATCH T-DERMAL SCH (09:00)
[2016-11-11] MEDS: ARIPiprazole 30 MG TAB PO SCH (09:00)
[2016-11-11] MEDS: BENZTROPINE MESYLATE 2 MG TAB PO SCH (10:37)
[2016-11-11] MEDS: metFORMIN HCL 500 MG TAB PO SCH ×2 (10:37→17:16)
[2016-11-11] MEDS: CIPROFLOXACIN 250 MG TAB PO SCH ×2 (10:37→20:58)
[2016-11-11] MEDS: ASPIRIN 325 MG TAB PO SCH (10:37)
--- NOTE | 2016-11-11 15:00 | HHI.PYPN ---
Subjective Remarks Patient discussed with treatment team and medical student Barbara, chart reviewed, patient seen on unit after treatment team. Patient continues markedly intrusive with very poor boundaries with personal space, though today he is calling me Dr. Fleming and not "court discharge" he is over been showing improved compliance with medication. For now continue treatment will have placement assess patient Objective Alert: Yes [place]: Person Mood: Other (exhuberant) Affect: Labile Memory Intact: Immediate (impaired) Hallucinations: Other (unknown) Delusions: No Delusion Type: Other (unknown) Suicidal: Ideation (would not answer) Homicidal: Ideation (would not answer) Insight/Judgement Very poor Vitals/IOs Vital Signs Date Time Temp Pulse Resp B/P Pulse Ox O2 Delivery O2 Flow Rate FiO2 11/11/16 05:45 97.8 63 16 115/77 98 Intake and Output 11/10/16 11/10/16 11/11/16 08:00 16:00 00:00 Intake Total 240 ml 960 ml Balance 240 ml 960 ml Assessment & Plan Problem List: (1) Schizoaffective disorder, bipolar type ICD Code: F25.0 (2) Dementia ICD Code: F03.90 Assessment & Plan Estimated LOS: days patient continues confused and demented intrusive labile and at times irritating. For now continue treatment Justification for Cont. Inpt. At this time patient would decompensate placed in a lower level of care Discharge Planning To be determined Request HC Surrog/Guard Advoc?: Yes Ravi Fleming MD Nov 11, 2016 15:00
[2016-11-11 18:00] VITALS: BP 112/71; PULSE 81; RESP 16; TEMP 97.9; O2SAT 98
[2016-11-11] MEDS: LITHIUM CARBONATE 450 MG CONTROLLED RELEASE TAB PO SCH (20:58)
[2016-11-11] MEDS: ATORVASTATIN 40 MG TAB PO SCH (20:58)
[2016-11-11] MEDS: LORazepam 0.5 MG TAB PO PRN (21:03)
[2016-11-12] MEDS: INSULIN ASPART SUPPLEMENTAL SCALE SQ SCH ×4 (06:08→21:00)
[2016-11-12 06:18] VITALS: BP 115/65; PULSE 68; RESP 16; TEMP 97.9; O2SAT 96
[2016-11-12] MEDS: NICOTINE 21 MG/24 HR PATCH T-DERMAL SCH (09:00)
[2016-11-12] MEDS: REMOVE OLD PATCH T-DERMAL SCH (09:00)
[2016-11-12] MEDS: ARIPiprazole 30 MG TAB PO SCH (09:00)
[2016-11-12] MEDS: metFORMIN HCL 500 MG TAB PO SCH ×2 (09:30→18:47)
[2016-11-12] MEDS: CIPROFLOXACIN 250 MG TAB PO SCH (09:30)
[2016-11-12] MEDS: BENZTROPINE MESYLATE 2 MG TAB PO SCH (09:30)
[2016-11-12] MEDS: ASPIRIN 325 MG TAB PO SCH (09:30)
--- NOTE | 2016-11-12 10:50 | HHI.PYPN ---
Subjective Remarks Patient seen in his room with nurse Lynn and medical student Barbara, chart reviewed. Patient will compliant medications, while intrusive loud at times irritable continues more focused cooperative now referred to me as "" and not as "srinivasan Butler". States he wishes to return to [facility]. Will have staff, and assess him Review of Systems Except as stated in HPI: all other systems reviewed are Neg Objective Alert: Yes [place]: Person Mood: Other (exhuberant) Affect: Labile Memory Intact: Immediate (impaired) Hallucinations: Other (unknown) Delusions: No Delusion Type: Other (unknown) Suicidal: Ideation (would not answer) Homicidal: Ideation (would not answer) Insight/Judgement Very poor Vitals/IOs Vital Signs Date Time Temp Pulse Resp B/P Pulse Ox O2 Delivery O2 Flow Rate FiO2 11/12/16 06:18 97.9 68 16 115/65 96 Intake and Output 11/11/16 11/11/16 11/12/16 08:00 16:00 00:00 Intake Total 0 ml 1380 ml 1080 ml Balance 0 ml 1380 ml 1080 ml Assessment & Plan Problem List: (1) Schizoaffective disorder, bipolar type ICD Code: F25.0 (2) Dementia ICD Code: F03.90 Assessment & Plan Estimated LOS: days patient continues confused demented, though his intensity and is affect of calm. The paranoia has diminished. Patient compliant medications. Will have staff from [facility] come and assess Justification for Cont. Inpt. At this time patient will decompensate placed a lower level of care Discharge Planning To be determined Request HC Surrog/Guard Advoc?: Yes Ravi Fleming MD Nov 12, 2016 10:50
[2016-11-12 18:21] VITALS: BP 126/63; PULSE 63; RESP 16; TEMP 97.8; O2SAT 98
[2016-11-12] MEDS: LITHIUM CARBONATE 450 MG CONTROLLED RELEASE TAB PO SCH (21:24)
[2016-11-12] MEDS: ATORVASTATIN 40 MG TAB PO SCH (21:28)
[2016-11-13 06:36] VITALS: BP 107/59; PULSE 65; RESP 16; TEMP 97.6; O2SAT 97
[2016-11-13] MEDS: INSULIN ASPART SUPPLEMENTAL SCALE SQ SCH ×4 (06:49→20:50)
[2016-11-13] MEDS: ASPIRIN 325 MG TAB PO SCH (09:09)
[2016-11-13] MEDS: BENZTROPINE MESYLATE 2 MG TAB PO SCH (09:09)
[2016-11-13] MEDS: metFORMIN HCL 500 MG TAB PO SCH ×2 (09:09→17:26)
[2016-11-13] MEDS: ARIPiprazole 30 MG TAB PO SCH (09:09)
--- NOTE | 2016-11-13 11:46 | HHI.PYPN ---
Subjective Remarks Patient seen in his room with nurse Isabel, patient continues somewhat intense and intrusive though his focus has improved, he now identifies me as Dr. Fleming and not as srinivasan Butler. States staff from [facility] without yesterday to assess him. He is awaiting their decision about return to that facility. He states he feels ready to return. For now continue treatment Review of Systems Except as stated in HPI: all other systems reviewed are Neg Objective Alert: Yes [place]: Person Mood: Other (exhuberant) Affect: Labile Memory Intact: Immediate (impaired) Hallucinations: Other (unknown) Delusions: No Delusion Type: Other (unknown) Suicidal: Ideation (would not answer) Homicidal: Ideation (would not answer) Insight/Judgement Poor Remarks Poor Vitals/IOs Vital Signs Date Time Temp Pulse Resp B/P Pulse Ox O2 Delivery O2 Flow Rate FiO2 11/13/16 06:36 97.6 65 16 107/59 97 Intake and Output 11/12/16 11/12/16 11/13/16 08:00 16:00 00:00 Intake Total 480 ml 480 ml 1200 ml Balance 480 ml 480 ml 1200 ml Assessment & Plan Problem List: (1) Schizoaffective disorder, bipolar type ICD Code: F25.0 (2) Dementia ICD Code: F03.90 Assessment & Plan Estimated LOS: days patient continues confused demented though behaviors since softened he is more directable unfocused, compliant medications. Awaiting word from [facility] as to possible placement of that facility Justification for Cont. Inpt. At this time patient will decompensate placed in a lower level of care Discharge Planning To be determined Request HC Surrog/Guard Advoc?: Yes Ravi Fleming MD Nov 13, 2016 11:46
[2016-11-13 18:00] VITALS: BP 116/62; PULSE 67; RESP 16; TEMP 97.9; O2SAT 99
[2016-11-13] MEDS: ATORVASTATIN 40 MG TAB PO SCH (20:48)
[2016-11-13] MEDS: LITHIUM CARBONATE 450 MG CONTROLLED RELEASE TAB PO SCH (20:49)
[2016-11-13] MEDS: LORazepam 0.5 MG TAB PO PRN (23:08)
[2016-11-14 05:53] VITALS: BP 127/72; PULSE 72; RESP 18; TEMP 98.1; O2SAT 95
[2016-11-14] MEDS: INSULIN ASPART SUPPLEMENTAL SCALE SQ SCH ×4 (06:14→20:25)
--- NOTE | 2016-11-14 08:51 | HHI.PYPN ---
Subjective Remarks Patient seen today in day room with medical student Barbara, chart reviewed, patient continues diffusely confused though more focused visit with me, continues to be quite willing to return to [facility]. We continue to await word from them related to placement Review of Systems Except as stated in HPI: all other systems reviewed are Neg Objective Alert: Yes [place]: Person Mood: Other (exhuberant) Affect: Labile Memory Intact: Immediate (impaired) Hallucinations: Other (unknown) Delusions: No Delusion Type: Other (unknown) Suicidal: Ideation (would not answer) Homicidal: Ideation (would not answer) Insight/Judgement Very poor Vitals/IOs Vital Signs Date Time Temp Pulse Resp B/P Pulse Ox O2 Delivery O2 Flow Rate FiO2 11/14/16 05:53 98.1 72 18 127/72 95 Intake and Output 11/13/16 11/13/16 11/14/16 08:00 16:00 00:00 Intake Total 240 ml 1200 ml 840 ml Balance 240 ml 1200 ml 840 ml Assessment & Plan Problem List: (1) Schizoaffective disorder, bipolar type ICD Code: F25.0 (2) Dementia ICD Code: F03.90 Assessment & Plan Estimated LOS: days patient remains confused demented though behaviors have calm somewhat. No await placement notification from [facility]. This time I feel patient's diagnosis may be further refined to code G30.0 Justification for Cont. Inpt. At this time patient will decompensate placed in the lower level of care Discharge Planning To be determined Request HC Surrog/Guard Advoc?: Yes Problem Qualifiers (1) Dementia: Qualified Code: G30.0 - Early onset Alzheimer's disease with behavioral disturbance Ravi Fleming MD Nov 14, 2016 08:51
[2016-11-14] MEDS: metFORMIN HCL 500 MG TAB PO SCH ×3 (09:14→20:30)
[2016-11-14] MEDS: ARIPiprazole 30 MG TAB PO SCH (09:14)
[2016-11-14] MEDS: BENZTROPINE MESYLATE 2 MG TAB PO SCH (09:14)
[2016-11-14] MEDS: ASPIRIN 325 MG TAB PO SCH (09:14)
[2016-11-14] MEDS ORDERED: LIPI40TA PO (13:47)
[2016-11-14] MEDS ORDERED: LITH450T PO (13:47)
[2016-11-14] MEDS ORDERED: ASPI325T PO (13:47)
[2016-11-14] MEDS ORDERED: BENZ2TAB PO (13:47)
[2016-11-14] MEDS ORDERED: ABIL30TA2 PO (13:47)
[2016-11-14] MEDS ORDERED: METF500 PO (13:47)
--- NOTE | 2016-11-14 13:54 | HHI.DS ---
Psychiatry Discharge Summary Inpatient Psychiatric care?: Yes Advance Directive: No Reason Not Provided: awaiting [place] response Mental Health AdvanceDirective: No Health Care Proxy: No Admission Admission Date Nov 01, 2016 at 07:38 Admission Diagnosis: (1) Schizoaffective disorder, bipolar type ICD Code: F25.0 Brief History Mr. Carpio is a 66-year-old male with a history of schizoaffective disorder, dementia and history of alcohol use disorder who presents under a Wills act by non-psychiatric physician Ewa Reich alleging that the patient is refusing medications and care, yelling at roommate, peers and staff and is acutely agitated. Patient is well known to the psychiatric service here and has multiple prior psychiatric hospitalizations, most recently in May of last year. Electronic medical record reviewed. Patient seen and examined. Chart reviewed. Case discussed with nurse in the J- pod. On my examination today, the patient is volitionally mute. There is some stupor but no waxy flexibility or posturing/stereotypies or other features of catatonia. He appears internally preoccupied. Affect is somewhat dysphoric. He does not voice any suicidal or homicidal ideation. He does endeavor to follow simple commands. The only speech that I am able to get from him is with extended questioning when he says in apparent frustration "Oh, God" and huddles under the covers. Psychiatric interview is limited by patient's inability or unwillingness to participate in interview. I am unable to obtain any past psychiatric, family, chemical dependency or social history from this patient at this time for this reason as well, although these data are amply documented in the medical record. I did place a call to patient's [facility] facility at [phone]. No answer. Left a voicemail requesting a call back. 11/01/16 Above note dictated by Dr. Parikh reviewed and agreed with. Patient seen on unit with medical student Barbara, patient alert appears to recognize me though is quite selective in his responses with him mumbled one or 2 word responses markedly distracted glancing over his right shoulder as if responding to internal stimuli. Dr. parikh has signed first opinion petition supporting Wills act. I agree. Patient does meet criteria for involuntary psychiatric hospitalization under the Wills act. Thus I will cosign second opinion petition supporting Wills act Tobacco Use In Past 30 Days: Cognitive Impairment Alcohol Use: Never Hospital Course Patient's hospital course was submitted her prior admissions, with the faisal profanity noncompliance of medication quite prevalent, however as he became compliant with medications the behaviors softened remain somewhat intrusive and loud though coming his scatological consulting references towards me diminished lupoid right now "Dr. Fleming". He now denies suicidality homicidality voices or visions states he does wish returned [facility]. There is a bed available at [facility] tomorrow morning. Patient will be discharged marked left facility with Rx 1 month the follow-up will health services through that facility Results Blood Pressure 127 / 72 Vital Signs Date Time Temp Pulse Resp B/P Pulse Ox O2 Delivery O2 Flow Rate FiO2 11/14/16 05:53 98.1 72 18 127/72 95 And toxicology negative Summary of Procedures None done Pending results at discharge: No Medications # of Antipsychotic meds at D/C: 1 Approp Antipsych med options 1 - Minimum of three failed multiple trials of monotherapy. 2 - Documented plan to taper to monotherapy due to previous use of multiple meds OR cross-taper in progress at D/C. 3 - Documentation of augmentation of Clozapine. 4 - Justification other than those listed in allowable values 1-3, document here : Discharge Discharge Date: Nov 15, 2016 Discharge Diagnosis: (1) Schizoaffective disorder, bipolar type Diagnosis: Principal ICD Code: F25.0 Mental Status Exam at Disch Alert oriented somewhat loud intense labile white male appears stated age, is normal active, his mood is somewhat intense affect shows increased range and intensity speech is rapid at times pressure somewhat tangential, then auditory or visual hallucinations no delusions noted insight and judgment is poor cognition is somewhat impaired Pt Condition on Discharge: Stable Discharge Disposition: [facility]F/[facility] Discharge Instructions Diet Instructions: As Tolerated, No Restrictions Activities you can perform: Regular-No Restrictions Scheduled Appointment: [facility] Discharge Time > 30 minutes Discharge/Advance Care Plan Health Problems: (1) Schizoaffective disorder, bipolar type (2) Dementia Goals to promote your health * To prevent worsening of your condition and complications * To maintain your health at the optimal level Directions to meet your goals Take your medications as prescribed Follow your dietary instruction Follow activity as directed Keep your appointments as scheduled Take your immunizations and boosters as scheduled If your symptoms worsen call your PCP, if no PCP go to Urgent Care Center or Emergency Room For 14/04 questions related to your inpatient stay or results of tests pending at discharge, please contact Dr. Ravi Fleming at Smoking is Dangerous to Your Health. Avoid second hand smoking Ravi Fleming MD Nov 14, 2016 13:54
[2016-11-14 18:46] VITALS: BP 116/58; PULSE 63; RESP 17; TEMP 97.9; O2SAT 96
[2016-11-14] MEDS: LITHIUM CARBONATE 450 MG CONTROLLED RELEASE TAB PO SCH (20:30)
[2016-11-14] MEDS: LORazepam 0.5 MG TAB PO PRN (20:30)
[2016-11-14] MEDS: ATORVASTATIN 40 MG TAB PO SCH (20:33)
[2016-11-15 06:04] VITALS: BP 101/56; PULSE 67; RESP 16; TEMP 98.1; O2SAT 94
[2016-11-15] MEDS: ASPIRIN 325 MG TAB PO SCH (08:57)
[2016-11-15] MEDS: ARIPiprazole 30 MG TAB PO SCH (08:58)
[2016-11-15] MEDS: BENZTROPINE MESYLATE 2 MG TAB PO SCH (08:59)
[2016-11-15] MEDS: metFORMIN HCL 500 MG TAB PO SCH (09:00)
[2016-11-15] MEDS: INSULIN ASPART SUPPLEMENTAL SCALE SQ SCH (11:00)
--- NOTE | 2016-11-15 11:26 | HHI.PYPN ---
Subjective Remarks Patient was seen and case discussed with nursing. Patient is alert and oriented 4. Looking forward to a discharge to [facility]. Compliant with his medications. Describes his mood as "feeling good." Behaving well per nursing. Denies auditory visual hallucinations. Denies suicidal ideation intent or plan Objective Alert: Yes [place]: Person, Place, Date Mood: Happy Affect: Euthymic Memory Intact: Immediate (impaired) Hallucinations: Auditory (denies), Other Delusions: No Delusion Type: Other (unknown) Suicidal: Ideation (denies) Homicidal: Ideation (denies) Insight/Judgement Fair Vitals/IOs Vital Signs Date Time Temp Pulse Resp B/P Pulse Ox O2 Delivery O2 Flow Rate FiO2 11/15/16 06:04 98.1 67 16 101/56 94 Intake and Output 11/14/16 11/14/16 11/15/16 08:00 16:00 00:00 Intake Total 1080 ml Output Total 1020 ml Balance -1020 ml 1080 ml Assessment & Plan Problem List: (1) Schizoaffective disorder, bipolar type ICD Code: F25.0 (2) Dementia ICD Code: F03.90 Assessment & Plan Continue discharge planning Justification for Cont. Inpt. Continue discharge planning Request HC Surrog/Guard Advoc?: Yes Problem Qualifiers (1) Dementia: Qualified Code: G30.0 - Early onset Alzheimer's disease with behavioral disturbance Rito Ramos DO Nov 15, 2016 11:26
== END 2016-11-15 14:50 | DRG 885 ==
LOC: NEPA 16:05 → NEDA 11-01 07:38 → H250 11-01 10:30
PROVIDERS: ADMIT Psychiatry & Neurology Psychiatry; ATTEND Psychiatry & Neurology Psychiatry
DX: F25.0 Schizoaffective disorder, bipolar type (principal); N39.0 Urinary tract infection, site not specified; I48.91 Unspecified atrial fibrillation; G30.0 Alzheimer's disease with early onset; J44.9 Chronic obstructive pulmonary disease, unspecified; E11.9 Type 2 diabetes mellitus without complications; I10 Essential (primary) hypertension; B96.1 Klebsiella pneumoniae [K. pneumoniae] as the cause of diseases classified elsewhere; E86.0 Dehydration; Z91.14 Patient's other noncompliance with medication regimen; I25.10 Atherosclerotic heart disease of native coronary artery without angina pectoris; R31.9 Hematuria, unspecified; K21.9 Gastro-esophageal reflux disease without esophagitis; E78.5 Hyperlipidemia, unspecified
CPT/HCPCS: 80048; 80053; 80061; 80178; 80307; 80320; 80329; 81001; 82948; 83036; 85025; 87077; 87086; 87186; 96374; G0480; J0696; J1815; J2060

== ENCOUNTER 2016-11-20 11:16 | Inpatient (IN) | payer OTHER ==
[~2016-11-20] VITALS: Ht 157.5 cm; Wt 63.0 kg
[2016-11-20] VITALS (7 sets, daily range): BP systolic 118–127; BP diastolic 58–83; PULSE 67–86; RESP 16–20; TEMP 97.8–98.1; O2SAT 95–99
[~2016-11-20 11:16] MED LIST changes: +ABIL30TA2 PO; -ARIP30 PO; -BENZ1TAB PO; +BENZ2TAB PO; +CIPR250T52 PO; -LACT12%T TOPICAL; +LIPI40TA PO; -LITH450 PO; +LITH450T PO; -LOTR15T TOPICAL; -NOVOLOGSS SQ; +PRIL20CA9 PO; -TRAZ50TA78 PO
--- NOTE | 2016-11-20 11:35 | PD ---
HPI Chief Complaint: Wills act Time Seen by Provider: 11:27 Travel History International Travel<30 days: No Contact w/Intl Traveler<30days: No Traveled to known affect area: No History of Present Illness HPI [facility] W[facility]. According to the form, he is brought in for a flare of schizoaffective with dementia. Patient denies any physical complaint. He says he is doing well today. Severity is moderate. No alleviating factors. He is not very forthcoming historian. Duration is 2 days PFSH Past Medical History Arthritis: No Asthma: No Atrial Fibrillation: Yes Bipolar Disorder: Yes Anxiety: Yes Depression: Yes Heart Rhythm Problems: Yes Cardiovascular Problems: Yes High Cholesterol: Yes Chest Pain: No Congestive Heart Failure: No COPD: Yes Cerebrovascular Accident: No Dementia: Yes Diabetes: Yes Diminished Hearing: No Endocrine: Yes Gastrointestinal Disorders: Yes GERD: Yes Genitourinary: No Headaches: No Hiatal Hernia: No Hypertension: Yes Immune Disorder: No Implanted Vascular Access Dvce: No Musculoskeletal: No Neurologic: Yes Psychiatric: Yes (Hx of treatment for Schizoaffective Disorder) Reproductive: No Respiratory: Yes Immunizations Current: Yes Migraines: No Pneumonia: Yes Schizophrenia: Yes Sleep Apnea: No Thyroid Disease: No Triglycerides - High: Yes Ulcer: No PNEUMOCCOCAL Vaccine (Year): 2 Past Surgical History Abdominal Surgery: No Cardiac Surgery: No Ear Surgery: No Endocrine Surgery: Yes (DM) Eye Surgery: No Genitourinary Surgery: No (UTI hx of chronic UTI) Gynecologic Surgery: No Oral Surgery: No Thoracic Surgery: No Other Surgery: Yes Family History Family Hypercholesterolemia: Yes Social History Alcohol Use: No (UNKNOWN) Tobacco Use: Yes (UNKNOWN) Allergies-Medications (Allergen,Severity, Reaction): Coded Allergies: Calamine (Verified Allergy, Severe, Rash, 11/20/16) Olanzapine (Verified Adverse Reaction, Severe, THROMBOCYTOPENIA, 11/20/16) Reported Meds & Prescriptions Reported Meds & Active Scripts Active Glucophage (Metformin HCl) 500 Mg Tab 500 Mg PO BIDPC [place] Carbonate ER ([place] Carbonate) 450 Mg Tab 450 Mg PO HS Benztropine (Benztropine Mesylate) 2 Mg Tab 2 Mg PO DAILY Lipitor (Atorvastatin Calcium) 40 Mg Tab 40 Mg PO HS Aspirin 325 Mg Tab 325 Mg PO DAILY Abilify (Aripiprazole) 30 Mg Tab 30 Mg PO DAILY Lipitor (Atorvastatin Calcium) 40 Mg Tab 40 Mg PO HS Reported Salsalate 500 Mg Tab 1,000 Mg PO TID Prilosec (Omeprazole) 20 Mg Cap 30 Mg PO DAILY Review of Systems General / Constitutional: No: Fever Eyes: No: Visual changes HENT: No: Headaches Cardiovascular: No: Chest Pain or Discomfort Respiratory: No: Shortness of Breath Gastrointestinal: No: Abdominal Pain Genitourinary: No: Dysuria Musculoskeletal: No: Pain Skin: No Rash Neurologic: No: Weakness Psychiatric: Positive: Disorder of Thought, Mood Disorder, No: Depression Endocrine: No: Polydipsia Hematologic/Lymphatic: No: Easy Bruising Physical Exam Narrative GENERAL: Well-nourished, well-developed patient in no apparent distress. SKIN: Warm and dry. HEAD: Atraumatic. Normocephalic. EYES: Pupils equal and round. No scleral icterus. No injection or drainage. ENT: No nasal bleeding or discharge. Mucous membranes pink and moist. NECK: Trachea midline. No JVD. CARDIOVASCULAR: Regular rate and rhythm. No murmur appreciated. RESPIRATORY: No accessory muscle use. Clear to auscultation. Breath sounds equal bilaterally. GASTROINTESTINAL: Abdomen soft, non-tender, nondistended. Hepatic and splenic margins not palpable. MUSCULOSKELETAL: No obvious deformities. No clubbing. No cyanosis. No edema. NEUROLOGICAL: Awake and alert. No obvious cranial nerve deficits. Motor grossly within normal limits. Normal speech. PSYCHIATRIC: Appropriate mood and affect; insight and judgment poor . Data Data Last Documented VS Vital Signs Date Time Temp Pulse Resp B/P Pulse Ox O2 Delivery O2 Flow Rate FiO2 11/20/16 13:20 97.8 81 17 120/71 99 Room Air Orders Complete Blood Count With Diff (11/20/16 11:31) Basic Metabolic Panel (Bmp) (11/20/16 11:31) Iv Access Insert/Monitor (11/20/16 11:31) Psych Screen (11/20/16 11:31) Drug Screen, Random Urine (11/20/16 11:31) Alcohol (Ethanol) (11/20/16 11:31) Labs Laboratory Tests Test 11/20/16 11/20/16 11:30 12:34 White Blood Count 8.6 TH/MM3 Red Blood Count 4.13 MIL/MM3 Hemoglobin 12.8 GM/DL Hematocrit 37.6 % Mean Corpuscular Volume 91.0 FL Mean Corpuscular Hemoglobin 31.1 PG Mean Corpuscular Hemoglobin 34.2 % Concent Red Cell Distribution Width 12.9 % Platelet Count 288 TH/MM3 Mean Platelet Volume 7.1 FL Neutrophils (%) (Auto) 68.4 % Lymphocytes (%) (Auto) 19.5 % Monocytes (%) (Auto) 6.6 % Eosinophils (%) (Auto) 4.8 % Basophils (%) (Auto) 0.7 % Neutrophils # (Auto) 5.9 TH/MM3 Lymphocytes # (Auto) 1.7 TH/MM3 Monocytes # (Auto) 0.6 TH/MM3 Eosinophils # (Auto) 0.4 TH/MM3 Basophils # (Auto) 0.1 TH/MM3 CBC Comment DIFF FINAL Differential Comment Sodium Level 138 MEQ/L Potassium Level 3.8 MEQ/L Chloride Level 105 MEQ/L Carbon Dioxide Level 25.0 MEQ/L Anion Gap 8 MEQ/L Blood Urea Nitrogen 8 MG/DL Creatinine 0.68 MG/DL Estimat Glomerular Filtration 117 ML/MIN Rate Random Glucose 117 MG/DL Calcium Level 9.1 MG/DL Ethyl Alcohol Level LESS THAN 3 MG/DL Urine Opiates Screen NEG Urine Barbiturates Screen NEG Urine Amphetamines Screen NEG Urine Benzodiazepines Screen NEG Urine Cocaine Screen NEG Urine Cannabinoids Screen NEG MDM Medical Decision Making Medical Screen Exam Complete: Yes Emergency Medical Condition: Yes Medical Record Reviewed: Yes Differential Diagnosis Schizoaffective, dementia, adjustment disorder Narrative Course I have reviewed the patient's electronic medical record. Patient was just discharged from the psychiatric floor one week ago IV placed CBC is normal Metabolic profile is normal Alcohol is negative Tox screen ordered and pending but will not supervisor policy change clerks I've ordered psychiatric screening as this patient is brought in under Wills act. Patient is is medically stable as can be made. He has no medical complaints. Disposition will be per psychiatry Diagnosis Primary Impression: Dementia with behavioral problem Qualified Code: G30.0 - Early onset Alzheimer's disease with behavioral disturbance Additional Impression: Schizoaffective disorder, bipolar type Reuben Beckett MD Nov 20, 2016 11:35
[2016-11-20 11:50] LABS: AUTOMATED NEUTROPHIL # 5.9 TH/MM3 (1.8-7.7); BASOPHIL # 0.1 TH/MM3 (0-0.2); BASOPHIL % 0.7 % (0.0-2.0); EOSINOPHIL # 0.4 TH/MM3 (0-0.4); EOSINOPHIL % 4.8 % (0.0-4.0); HEMATOCRIT 37.6 % (39.0-51.0); HEMO FLAGS DIFF FINAL; LYMPH % 19.5 % (9.0-44.0); LYMPHOCYTE # 1.7 TH/MM3 (1.0-4.8); MEAN CORPUSCULAR HEMOGLOBIN 31.1 PG (27.0-34.0); MEAN CORPUSCULAR HGB CONC 34.2 % (32.0-36.0); MONO % 6.6 % (0.0-8.0); NEUT % 68.4 % (16.0-70.0); PLATELET COUNT 288 TH/MM3 (150-450); RED BLOOD COUNT 4.13 MIL/MM3 (4.50-5.90); RED CELL DISTRIBUTION WIDTH 12.9 % (11.6-17.2); WHITE BLOOD COUNT 8.6 TH/MM3 (4.0-11.0)
[2016-11-20 12:09] LABS: ANION GAP 8 MEQ/L (5-15); BLOOD UREA NITROGEN 8 MG/DL (7-18); CHLORIDE 105 MEQ/L (98-107); GLOMERULAR FILTRATION RATE 117 ML/MIN (>89); POTASSIUM 3.8 MEQ/L (3.5-5.1); SODIUM (NA) 138 MEQ/L (136-145)
[2016-11-20 13:03] LABS: AMPHETAMINE, URINE NEG (NEG); BARBITURATES, URINE NEG (NEG); COCAINE, URINE NEG (NEG)
[2016-11-20] MEDS ORDERED: LORazepam 2 MG/ML VIAL IV PUSH ONE (16:30)
[2016-11-21 02:33] VITALS: BP 149/69; PULSE 72; RESP 20; O2SAT 97
[2016-11-21] MEDS ORDERED: diphenhydrAMINE HCL 50 MG/ML VIAL - HS PRN IM (04:15)
[2016-11-21] MEDS ORDERED: diphenhydrAMINE HCL 50 MG/ML VIAL IM PRN (04:15)
[2016-11-21] MEDS ORDERED: BENZTROPINE MESYLATE 2 MG/2 ML VIAL IM PRN (04:15)
[2016-11-21] MEDS ORDERED: BENZTROPINE MESYLATE 1 MG TAB PO PRN (04:15)
[2016-11-21] MEDS ORDERED: MAGNESIUM HYDROXIDE SUSP 30 ML CUP PO PRN ×2 (04:15→10:15)
[2016-11-21] MEDS ORDERED: diphenhydrAMINE HCL 50 MG CAP PO PRN (04:15)
[2016-11-21] MEDS ORDERED: LORazepam 2 MG/ML VIAL - age > 65 yrs IM PRN (04:15)
[2016-11-21] MEDS ORDERED: ALUMINUM/MAGNESIUM/SIMETH 30 ML CUP PO PRN ×2 (04:15→10:15)
[2016-11-21 05:30] VITALS: BP 130/75; PULSE 71; RESP 18; TEMP 98.7; O2SAT 96
[2016-11-21] MEDS ORDERED: SALSALATE 500 MG PO SCH (09:00)
[2016-11-21] MEDS: ASPIRIN 325 MG TAB PO SCH (09:32)
[2016-11-21] MEDS: metFORMIN HCL 500 MG TAB PO SCH ×2 (09:33→18:08)
[2016-11-21] MEDS: PANTOPRAZOLE SOD 40 MG DELAYED RELEASE TAB PO SCH (09:33)
[2016-11-21] MEDS: BENZTROPINE MESYLATE 2 MG TAB PO SCH (09:33)
[2016-11-21] MEDS ORDERED: hydrOXYzine HCL 50 MG TAB PO PRN (10:15)
[2016-11-21] MEDS ORDERED: ACETAMINOPHEN 325 MG TAB PO PRN (10:15)
--- NOTE | 2016-11-21 10:31 | HHI.HP ---
Provisional Diagnosis Admission Date Nov 21, 2016 at 04:23 [place] I. Schizoaffective disorder bipolar type f 25.0 Certification of Person's Competence To Provide Express and Informed Consent I have personally examined Chavez Carpio , a person being served at [facility] on, Nov 21, 2016 10:13. Express and informed consent means consent voluntarily given in writing, by a competent person, after sufficient explanation and disclosure of the subject matter involved to enable the person to make a knowing and willful decision without any element of force, fraud, deceit, duress, or other form of constraint or coercion. This person is 18 years of age or older, is not now known to be incompetent to consent to treatment with a guardian advocate, and does not have a health care surrogate or proxy currently making medical treatment decisions. I have found this person to be one of the following: [] Competent to provide express and informed consent, as defined above, for voluntary admission to this facility and is competent to provide express and informed consent for treatment. He/she has the consistent capacity to make well reasoned, willful, and knowing decisions concerning his or her medical or mental health treatment. The person fully and consistently understands the purpose of the admission for examination/placement and is fully capable of personally exercising all rights assured [place] [x] Incompetent to provide express and informed consent to voluntary admission, and this is incompetent to provide express and informed consent to treatment. The person must be transferred to involuntary status and a petition for a guardian advocate filed with the Circuit Court. [] Refusing to provide express and informed consent to voluntary admission but is competent to provide express and informed consent for treatment. The person must be discharged or transferred to involuntary status. Form shall be completed within 24 hours of a person's arrival at the receiving facility and filed in the clinical record of each person: 1. Admitted on a voluntary basis 2. Permitted to provide express and informed consent to his/her own treatment 3. Allowed to transfer from involuntary to voluntary status 4. Prior to permitting a person to consent to his or her own treatment after having been previously found incompetent to consent to treatment. History of Present Illness Capacity: Lacks Capacity HPI Patient is a 66-year-old white male well-known post multiple prior contacts comes here under Wills act signed by Ewa martell from [facility] dated 11/20/16 10 AM stating resident refuses care yelling out to other patient's and staff trying to smoke in room incontinent of bowel and bladder. Patient seen screened in ED urine toxicology negative but alcohol level negative. Of interest patient was hospitalized here 11/01/16 through 11/15/16 with under my care. Patient has been hospital 6 times from 2015 through the present time. He was hospitalized 4 times in 2014. He has had multiple hospitalizations prior to that first documented in our EMR in 2004. The more recent hospitalizations all show some of behaviors on his part leading to the Wills act. Patient seen by me in dayroom initially with him sitting at a table his head down on the table refusing to speak with me. I returned about an hour later patient now sitting in a chair in the day room more alert did recognize me. He stated now he wants to go back to his retirement. He shows confusion irritability lability with no insight into his issues. He does denies suicidality, though he denies voices she appears to be responding to internal stimuli. As mentioned above she is been noncompliant with his medications. Upon review of the EMR I feel this marked recidivism and inability to maintain himself in a local [facility] needs me to order state referral packet. For now we will continue his schedule medications. Review of Systems ROS Limitations: Altered Mental Status, Uncooperative, Refused, Psychotic Except as stated in HPI: all other systems reviewed are Neg Past Psych History Psychological trauma history Long history of mental illness Violence risk - others (6 mos) Patient aggressive irritable toward staff and other residents at [facility] Violence risk - self (6 mos) Low Substance Abuse History Drugs/Alcohol past 12 months Denies Past Family Social History Coded Allergies: Calamine (Verified Allergy, Severe, Rash, 11/20/16) Olanzapine (Verified Adverse Reaction, Severe, THROMBOCYTOPENIA, 11/20/16) Past Medical History Patient medically cleared ED Active Scripts Metformin (Glucophage)500 Mg [id number] Mg PO BIDPC #60 TAB Ref 0 Prov:Ravi Fleming MD 11/14/16 [place] Carbonate ER 450 Mg [id number] Mg PO HS #30 TAB Ref 0 Prov:Ravi Fleming MD 11/14/16 Benztropine 2 Mg Tab2 Mg PO DAILY #30 TAB Ref 0 Prov:Ravi Fleming MD 11/14/16 Atorvastatin (Lipitor)40 Mg Tab40 Mg PO HS #30 TAB Ref 0 Prov:Ravi Fleming MD 11/14/16 Aspirin 325 Mg [id number] Mg PO DAILY #30 TAB Ref 0 Prov:Ravi Fleming MD 11/14/16 Aripiprazole (Abilify)30 Mg Tab30 Mg PO DAILY #30 TAB Ref 0 Prov:Ravi Fleming MD 11/14/16 Atorvastatin (Lipitor)40 Mg Tab40 Mg PO HS #30 TAB Ref 0 Prov:Ivon Devi 11/02/16 Reported Medications Salsalate 500 Mg Tab1,000 Mg PO TID #180 TAB Ref 0 10/31/16 Omeprazole (Prilosec)20 Mg Cap30 Mg PO DAILY #30 CAP Ref 0 10/31/16 Discontinued Reported Medications [place] Carbonate ER 450 Mg [id number] Mg PO HS Ref 0 10/31/16 Benztropine 2 Mg Tab2 Mg PO DAILY #60 TAB Ref 0 10/31/16 Aspirin 325 Mg [id number] Mg PO DAILY #30 TAB Ref 0 10/31/16 Discontinued Scripts Ciprofloxacin (Cipro)250 Mg [id number] Mg PO BID 10 Days Ref 0 Prov:Ivon Devi 11/02/16 Atorvastatin (Lipitor)40 Mg Tab40 Mg PO HS #30 TAB Ref 0 Prov:Ivon Devi 11/02/16 Current Medications Medications (Trade) Dose Ordered Sig/Ashanti Route Start Time Stop Time Status Last Admin (Abilify) 30 mg DAILY PO 11/21/16 09:00 (Lipitor) 40 mg HS PO 11/21/16 21:00 Patient Own Medication PT OWN MED: SALSAL... TID PO 11/21/16 09:00 Hold (Protonix) 40 mg DAILY PO 11/21/16 09:00 11/21/16 09:33 (Ativan) 0.5 mg Q12H PRN PO 11/21/16 04:15 Hold (Atarax) 50 mg Q6H PRN PO 11/21/16 04:15 Hold (Benadryl) 50 mg HS PRN PO 11/21/16 04:15 Hold (Desyrel) 50 mg HS PRN PO 11/21/16 04:15 Hold (Tylenol) 650 mg Q4H PRN PO 11/21/16 04:15 (Milk Of Magnesia Liq) 30 ml DAILY PRN PO 11/21/16 04:15 (Mag-Al Plus Susp Liq) 30 ml Q6H PRN PO 11/21/16 04:15 (Aspirin) 325 mg DAILY PO 11/21/16 09:00 11/21/16 09:32 (Cogentin) 2 mg DAILY PO 11/21/16 09:00 11/21/16 09:33 (Eskalith Sr) 450 mg HS PO 11/21/16 21:00 (Glucophage) 500 mg BIDPC PO 11/21/16 09:00 11/21/16 09:33 Family History Unable to obtain Social History Patient lives in [facility] Patient's Strengths (min. 2) Patient verbal labile access healthcare Physical Exam He should seen screened in ED exam reviewed and agreed with vital signs blood pressure 130/75 pulse 71 respirations 18 Vital Signs Vital Signs Date Time Temp Pulse Resp B/P Pulse Ox O2 Delivery O2 Flow Rate FiO2 11/21/16 05:30 98.7 71 18 130/75 96 11/21/16 02:33 Room Air I/O 11/20/16 11/20/16 11/21/16 08:00 16:00 00:00 Intake Total 200 ml 200 ml Output Total 500 ml Balance 200 ml -300 ml Mental Status Examination Alert white male appears about stated age somewhat disheveled in appearance irritable labile with poor eye contact Appearance Disheveled Speech: Pressured, Rapid, Tangential Orientation: Person, Place Memory: Impaired (describe) Thought Process: Loose Association Thought Content: Paranoid Hallucination Type: None (denies, though he appears to be responding to internal stimuli) Attention and Concentration: Other (poor) Suicidal Ideation: No Previous Suicide Attempts: No Homicidal Ideation: No Previous Homicide Attempts: No Insight: Poor Judgement: Poor Affect: Other (increased range and intensity) Mood: Angry, Oppositional, Irritable Motor Activity: Normal gait (PT to evaluate) Assessment & Plan Problem List: (1) Schizoaffective disorder, bipolar type ICD Code: F25.0 Assessment & Plan Estimated LOS: 7 days at this time patient meets criteria for involuntary psychiatric hospitalization of the Wills act. I will do first opinion requests a second opinion, I feel he does not have capacity I'll ask for healthcare surrogate and guardian advocate, upon reviewing his EMR and the multiplicity of his recent admissions will also request initiation of a state referral packet. We will also have a hospitalist consult with us. Discharge Planning To be determined will start state referral packet Request HC Surrog/Guard Advoc?: Yes Ravi Fleming MD Nov 21, 2016 10:31
--- NOTE | 2016-11-21 14:19 | PD.CONS ---
HPI Service [facility] Consult Requested By Psychiatry team Reason for Consult Medical management Primary Care Physician [facility] Diagnoses: History of Present Illness This is a 66-year-old male patient with past medical history which includes dementia,schizophrenia, atrial fibrillation, diabetes mellitus, hypertension hyperlipidemia who came in from a halfway under Wills act secondary to flare of schizoaffective with dementia. Patient previously seen in the hospital last admission was 11/01/16 with urinary tract infection. He is now admitted to inpatient psychiatry unit for further evaluation. Consulted for medical management. Patient seen today. Confuse unable to respond to some questions and follow commands. Poor historian, unable to verify medical and surgical history. Denies pain and discomfort. Denies SOB/ dyspnea. Denies chest pain, palpitations, headaches, dizziness. Denies fevers, chills, n/v/d. Review of Systems ROS Limitations: Poor Historian Except as stated in HPI: all other systems reviewed are Neg Past Family Social History Allergies: Coded Allergies: Calamine (Verified Allergy, Severe, Rash, 11/20/16) Olanzapine (Verified Adverse Reaction, Severe, THROMBOCYTOPENIA, 11/20/16) Past Medical History Chart reviewed Atrial fibrillation, diabetes mellitus, hypertension, hyperlipidemia Past Surgical History Patient has abdominal scars but does not know what surgery he has. Reported Medications Glucophage (Metformin HCl) 500 Mg Tab 500 Mg PO BIDPC [place] Carbonate ER ([place] Carbonate) 450 Mg Tab 450 Mg PO HS Benztropine (Benztropine Mesylate) 2 Mg Tab 2 Mg PO DAILY Lipitor (Atorvastatin Calcium) 40 Mg Tab 40 Mg PO HS Aspirin 325 Mg Tab 325 Mg PO DAILY Abilify (Aripiprazole) 30 Mg Tab 30 Mg PO DAILY Lipitor (Atorvastatin Calcium) 40 Mg Tab 40 Mg PO HS Salsalate 500 Mg Tab 1,000 Mg PO TID Prilosec (Omeprazole) 20 Mg Cap 30 Mg PO DAILY Active Ordered Medications Current Medications Medications (Trade) Dose Ordered Sig/Ashanti Route Start Time Stop Time Status Last Admin (Abilify) 30 mg DAILY PO 11/21/16 09:00 (Lipitor) 40 mg HS PO 11/21/16 21:00 Patient Own Medication PT OWN MED: SALSAL... TID PO 11/21/16 09:00 Hold (Protonix) 40 mg DAILY PO 11/21/16 09:00 11/21/16 09:33 (Ativan) 0.5 mg Q12H PRN PO 11/21/16 04:15 Hold (Atarax) 50 mg Q6H PRN PO 11/21/16 04:15 Hold (Benadryl) 50 mg HS PRN PO 11/21/16 04:15 Hold (Desyrel) 50 mg HS PRN PO 11/21/16 04:15 Hold (Tylenol) 650 mg Q4H PRN PO 11/21/16 04:15 (Milk Of Magnesia Liq) 30 ml DAILY PRN PO 11/21/16 04:15 (Mag-Al Plus Susp Liq) 30 ml Q6H PRN PO 11/21/16 04:15 (Aspirin) 325 mg DAILY PO 11/21/16 09:00 11/21/16 09:32 (Cogentin) 2 mg DAILY PO 11/21/16 09:00 11/21/16 09:33 (Eskalith Sr) 450 mg HS PO 11/21/16 21:00 (Glucophage) 500 mg BIDPC PO 11/21/16 09:00 11/21/16 09:33 (Atarax) 50 mg Q6H PRN PO 11/21/16 10:15 Family History Chart review family history hypercholesteremia Social History Chart reviewed no known alcohol use, former smoker. Physical Exam Vital Signs Vital Signs Date Time Temp Pulse Resp B/P Pulse Ox O2 Delivery O2 Flow Rate FiO2 11/21/16 05:30 98.7 71 18 130/75 96 11/21/16 02:33 72 20 149/69 97 Room Air 11/20/16 22:17 73 20 122/71 98 Room Air 11/20/16 17:20 97.9 67 18 122/58 96 Room Air 11/20/16 16:27 97.8 86 17 127/81 99 Room Air 11/20/16 15:04 76 16 118/83 98 Room Air Physical Exam GENERAL: This is a well-nourished, well-developed patient, in no apparent distress. SKIN: No rashes, ecchymoses or lesions. Cool and dry. HEAD: Atraumatic. Normocephalic. No temporal or scalp tenderness. EYES: Pupils equal round and reactive. No scleral icterus. No injection or drainage. ENT: Nose without bleeding. Throat without erythema. Uvula midline. Airway patent. NECK: Trachea midline. No JVD or lymphadenopathy. CARDIOVASCULAR: Regular rate and rhythm without murmurs, gallops, or rubs. RESPIRATORY: Clear to auscultation. Breath sounds equal bilaterally. No wheezes , rales, or rhonchi. GASTROINTESTINAL: Abdomen soft, non-tender, nondistended. Bowel sounds active 4. MUSCULOSKELETAL: Extremities without clubbing, cyanosis, or edema. NEUROLOGICAL: Awake and alert. Confuse. Motor and sensory grossly within normal limits. Normal speech. Result Diagram: 11/20/16 1130 11/20/16 1130 Assessment and Plan Problem List: (1) HLD (hyperlipidemia) ICD Code: E78.5 Status: Chronic (2) DM (diabetes mellitus) ICD Code: E11.9 Status: Chronic (3) HTN (hypertension) ICD Code: I10 Status: Chronic (4) GERD (gastroesophageal reflux disease) ICD Code: K21.9 Status: Chronic (5) Anemia ICD Code: D64.9 Status: Chronic (6) A-fib ICD Code: I48.91 Status: Chronic (7) Dementia ICD Code: F03.90 Status: Chronic (8) COPD (chronic obstructive pulmonary disease) ICD Code: J44.9 Status: Chronic Assessment and Plan This is a 66-year-old male patient with past medical history which includes dementia,schizophrenia, atrial fibrillation, diabetes mellitus, hypertension hyperlipidemia who came in from a halfway under Wills act secondary to flare of schizoaffective with dementia. Patient previously seen in the hospital last admission was 11/01/16 with urinary tract infection. Admitted to inpatient psychiatry. Was just discharge several days ago 11/14/16. He is now admitted to inpatient psychiatry unit for further evaluation. Consulted for medical management. Schizophrenia, aggressive behavior - managed by psychiatry team History of atrial fibrillation - continue aspirin daily. Rate controlled, regular rate and rhythm. DM 2 - continue metformin 500 mg twice a day - Latest hemoglobin A1c 11/02/16 6.4 HTN, history - not in any BP meds - Monitor BP. Controlled. Hyperlipidemia - continue atorvastatin DVT prop ambulatory Thank you for this consultation. We will follow patient with you. Stable from Hospitalist standpoint. We will sign off. Reconsult as needed. Written by Dennis Dorsey, acting as scribe for Dr. Daly on 11/21/16 at 15: 08. Code Status Full code Discussed Condition With Patient, nursing Attending Statement The documentation accurately reflects the work performed [id number] by me on The documentation accurately reflects the work performed [id number] by me on at 15:08. Dennis Gregorio Nov 21, 2016 14:19 Alex Nguyen MD Nov 21, 2016 23:11
--- NOTE | 2016-11-21 16:20 | PD.CONS ---
Provisional Diagnosis Admission Date Nov 21, 2016 at 04:23 [place] I. 1. Schizoaffective disorder, bipolar type 2. History of dementia [place] II. Deferred Fults V. GAF is 35 presently History of Present Illness Service Psychiatry Consult Requested By Dr. Fleming Reason for Consult Second opinion Primary Care Physician [facility] HPI From Dr. Fleming's H&P: Patient is a 66-year-old white male well-known post multiple prior contacts comes here under Wills act signed by Ewa martell from [facility] dated 11/20/16 10 AM stating resident refuses care yelling out to other patient's and staff trying to smoke in room incontinent of bowel and bladder. Patient seen screened in ED urine toxicology negative but alcohol level negative. Of interest patient was hospitalized here 11/01/16 through 11/15/16 with under my care. Patient has been hospital 6 times from 2015 through the present time. He was hospitalized 4 times in 2014. He has had multiple hospitalizations prior to that first documented in our EMR in 2004. The more recent hospitalizations all show some of behaviors on his part leading to the Wills act. Patient seen by me in dayroom initially with him sitting at a table his head down on the table refusing to speak with me. I returned about an hour later patient now sitting in a chair in the day room more alert did recognize me. He stated now he wants to go back to his alf. He shows confusion irritability lability with no insight into his issues. He does denies suicidality, though he denies voices she appears to be responding to internal stimuli. As mentioned above she is been noncompliant with his medications. Upon review of the EMR I feel this marked recidivism and inability to maintain himself in a local [facility] needs me to order state referral packet. For now we will continue his schedule medications. On my examination today: Patient seen and examined. Chart reviewed. Case discussed with RN who reports patient has been verbally abusive but not physically aggressive during her shift. On my examination today, patient reports that he has come into the hospital, "because I was honeymooning down in [place] and I decided to check it out." With prompting, patient recalls that he was at [facility] but says that "everything was fine." He clarifies to say, "we thought some people were out to get us, we had to dive into the dirt, had to get the hose." Denies AVH. Denies SI/HI. Somewhat disorganized, says things like, "I shaved my brain." He says, "I thought I'd just sleep here then go home." Mood is good. Psychiatric ROS is otherwise negative. Patient is a poor historian and is unable to provide past psychiatric, family, chemical dependency or social history at this time. Review of Systems ROS Limitations: Psychotic, Poor Historian Other No physical complaints. Past Family Social History Coded Allergies: Calamine (Verified Allergy, Severe, Rash, 11/20/16) Olanzapine (Verified Adverse Reaction, Severe, THROMBOCYTOPENIA, 11/20/16) Past Medical History See EMR Active Scripts Metformin (Glucophage)500 Mg [id number] Mg PO BIDPC #60 TAB Ref 0 Prov:Ravi Fleming MD 11/14/16 [place] Carbonate ER 450 Mg [id number] Mg PO HS #30 TAB Ref 0 Prov:Ravi Fleming MD 11/14/16 Benztropine 2 Mg Tab2 Mg PO DAILY #30 TAB Ref 0 Prov:Ravi Fleming MD 11/14/16 Atorvastatin (Lipitor)40 Mg Tab40 Mg PO HS #30 TAB Ref 0 Prov:Ravi Fleming MD 11/14/16 Aspirin 325 Mg [id number] Mg PO DAILY #30 TAB Ref 0 Prov:Ravi Fleming MD 11/14/16 Aripiprazole (Abilify)30 Mg Tab30 Mg PO DAILY #30 TAB Ref 0 Prov:Ravi Fleming MD 11/14/16 Atorvastatin (Lipitor)40 Mg Tab40 Mg PO HS #30 TAB Ref 0 Prov:Ivon Devi 11/02/16 Reported Medications Salsalate 500 Mg Tab1,000 Mg PO TID #180 TAB Ref 0 10/31/16 Omeprazole (Prilosec)20 Mg Cap30 Mg PO DAILY #30 CAP Ref 0 10/31/16 Discontinued Reported Medications [place] Carbonate ER 450 Mg [id number] Mg PO HS Ref 0 10/31/16 Benztropine 2 Mg Tab2 Mg PO DAILY #60 TAB Ref 0 10/31/16 Aspirin 325 Mg [id number] Mg PO DAILY #30 TAB Ref 0 10/31/16 Discontinued Scripts Ciprofloxacin (Cipro)250 Mg [id number] Mg PO BID 10 Days Ref 0 Prov:Ivon Devi 11/02/16 Atorvastatin (Lipitor)40 Mg Tab40 Mg PO HS #30 TAB Ref 0 Prov:Ivon Devi 11/02/16 Current Medications Medications (Trade) Dose Ordered Sig/Ashanti Route Start Time Stop Time Status Last Admin (Abilify) 30 mg DAILY PO 11/21/16 09:00 (Lipitor) 40 mg HS PO 11/21/16 21:00 Patient Own Medication PT OWN MED: SALSAL... TID PO 11/21/16 09:00 Hold (Protonix) 40 mg DAILY PO 11/21/16 09:00 11/21/16 09:33 (Ativan) 0.5 mg Q12H PRN PO 11/21/16 04:15 Hold (Atarax) 50 mg Q6H PRN PO 11/21/16 04:15 Hold (Benadryl) 50 mg HS PRN PO 11/21/16 04:15 Hold (Desyrel) 50 mg HS PRN PO 11/21/16 04:15 Hold (Tylenol) 650 mg Q4H PRN PO 11/21/16 04:15 (Milk Of Magnesia Liq) 30 ml DAILY PRN PO 11/21/16 04:15 (Mag-Al Plus Susp Liq) 30 ml Q6H PRN PO 11/21/16 04:15 (Aspirin) 325 mg DAILY PO 11/21/16 09:00 11/21/16 09:32 (Cogentin) 2 mg DAILY PO 11/21/16 09:00 11/21/16 09:33 (Eskalith Sr) 450 mg HS PO 11/21/16 21:00 (Glucophage) 500 mg BIDPC PO 11/21/16 09:00 11/21/16 09:33 (Atarax) 50 mg Q6H PRN PO 11/21/16 10:15 Patient's Strengths (min. 2) In a monitored setting. Verbally fluent. Physical Exam Physical examination completed by ED provider. On my examination today, patient appears to be in no acute physical distress. No abnormal motor noted. Labs and vital signs reviewed: Vital Signs Vital Signs Date Time Temp Pulse Resp B/P Pulse Ox O2 Delivery O2 Flow Rate FiO2 11/21/16 05:30 98.7 71 18 130/75 96 11/21/16 02:33 Room Air I/O 11/20/16 11/20/16 11/21/16 08:00 16:00 00:00 Intake Total 200 ml 200 ml Output Total 500 ml Balance 200 ml -300 ml Lab Results Item Value Date Time White Blood Count 8.6 TH/MM3 11/20/16 1130 Hemoglobin 12.8 GM/DL L 11/20/16 1130 Platelet Count 288 TH/MM3 11/20/16 1130 Sodium Level 138 MEQ/L 11/20/16 1130 Potassium Level 3.8 MEQ/L 11/20/16 1130 Chloride Level 105 MEQ/L 11/20/16 1130 Carbon Dioxide Level 25.0 MEQ/L 11/20/16 1130 Anion Gap 8 MEQ/L 11/20/16 1130 Blood Urea Nitrogen 8 MG/DL 11/20/16 1130 Creatinine 0.68 MG/DL 11/20/16 1130 Toxicology negative. Mental Status Examination Patient is in hospital gown. He is fairly disheveled. He is awake and alert and oriented to person and with some prompting, hospital. No abnormal motor movements noted. Speech is somewhat rambling. Mood is good and affect is full and reactive. Thought process somewhat disorganized. Paranoid delusions present. Patient is internally stimulated. Denies suicidal or homicidal ideation but is unreliable to contract for safety. Insight and judgment are poor. Assessment & Plan Problem List: (1) Schizoaffective disorder, bipolar type ICD Code: F25.0 Assessment & Plan Given the circumstances of his presentation here in his presentation on my examination today, I concur with Dr. Fleming that the patient meets criteria for involuntary psychiatric hospitalization under the Wills act. I've completed second opinion paperwork. Further care as per Dr. Fleming. Thank you very much for this consultation. Signing off. Request HC Surrog/Guard Advoc?: Yes Shawn Parikh MD Nov 21, 2016 16:20
[2016-11-21 18:22] VITALS: BP 100/57; PULSE 73; RESP 17; TEMP 97
[2016-11-21] MEDS: ATORVASTATIN 40 MG TAB PO SCH (20:44)
[2016-11-22] MEDS: BENZTROPINE MESYLATE 2 MG TAB PO SCH (08:34)
[2016-11-22] MEDS: metFORMIN HCL 500 MG TAB PO SCH ×2 (08:34→18:29)
[2016-11-22] MEDS: ASPIRIN 325 MG TAB PO SCH (08:34)
[2016-11-22] MEDS: PANTOPRAZOLE SOD 40 MG DELAYED RELEASE TAB PO SCH (08:35)
[2016-11-22 08:56] LABS: ANION GAP 8 MEQ/L (5-15); BICARBONATE 26.3 MEQ/L (21.0-32.0); BLOOD UREA NITROGEN 12 MG/DL (7-18); CHLORIDE 106 MEQ/L (98-107); GLOMERULAR FILTRATION RATE 97 ML/MIN (>89); POTASSIUM 4.1 MEQ/L (3.5-5.1); SODIUM (NA) 140 MEQ/L (136-145)
[2016-11-22 08:59] LABS: HDL CHOLESTEROL 47.8 MG/DL (40.0-60.0); LDL CHOLESTEROL 63 MG/DL (0-99)
[2016-11-22 10:15] LABS: HEMOGLOBIN A1a 1.2 %; HEMOGLOBIN A1b 2.1 %; HEMOGLOBIN Ao 82.9 %; HEMOGLOBIN LA1C 2.4 %
--- NOTE | 2016-11-22 16:24 | HHI.PYPN ---
Subjective Remarks Patient seen in dayroom with medical student Brooklynn, patient has been somewhat misbehaving today, loud intimidating intrusive. At the asking socially through his ice cream on the floor then 10 minutes later asked for more ice cream. He continues to respond well to firm interventions and redirection. Compliant medication Review of Systems Except as stated in HPI: all other systems reviewed are Neg Objective Alert: Yes [place]: Person, Place Mood: Agitated, Angry Affect: Labile Memory Intact: Comment Hallucinations: Other (very poor denies that times appears to be responding to internal stimuli) Delusions: Yes Delusion Type: Paranoid Suicidal: Ideation (denies) Homicidal: Ideation (deny) Insight/Judgement Very poor Labs Test 11/22/16 07:46 Sodium Level 140 MEQ/L Potassium Level 4.1 MEQ/L Chloride Level 106 MEQ/L Carbon Dioxide Level 26.3 MEQ/L Anion Gap 8 MEQ/L Blood Urea Nitrogen 12 MG/DL Creatinine 0.80 MG/DL Estimat Glomerular Filtration 97 ML/MIN Rate Random Glucose 161 MG/DL Hemoglobin A1c 6.8 % Calcium Level 9.1 MG/DL Triglycerides Level 76 MG/DL Cholesterol Level 126 MG/DL LDL Cholesterol 63 MG/DL HDL Cholesterol 47.8 MG/DL Cholesterol/HDL Ratio 2.63 RATIO [place] Level 0.2 MEQ/L Vitals/IOs Vital Signs Date Time Temp Pulse Resp B/P Pulse Ox O2 Delivery O2 Flow Rate FiO2 11/21/16 18:22 97.0 73 17 100/57 11/21/16 05:30 96 11/21/16 02:33 Room Air Intake and Output 11/21/16 11/21/16 11/22/16 08:00 16:00 00:00 Intake Total 840 ml 0 ml Balance 840 ml 0 ml Assessment & Plan Problem List: (1) Schizoaffective disorder, bipolar type ICD Code: F25.0 Assessment & Plan Estimated LOS: days patient remains somewhat confused and psychotic, with at times [id number] behaviors Justification for Cont. Inpt. At this time patient would significantly decompensate if placed in the lower level of care Discharge Planning To be determined Request HC Surrog/Guard Advoc?: Yes Ravi Fleming MD Nov 22, 2016 16:24
[2016-11-22 20:24] VITALS: BP 131/77; PULSE 59; RESP 16; TEMP 97.9; O2SAT 100
[2016-11-22] MEDS: ATORVASTATIN 40 MG TAB PO SCH (20:51)
[2016-11-23 06:32] VITALS: BP 122/61; PULSE 68; RESP 18; TEMP 97.8; O2SAT 98
[2016-11-23] MEDS: metFORMIN HCL 500 MG TAB PO SCH ×2 (10:02→18:16)
[2016-11-23] MEDS: PANTOPRAZOLE SOD 40 MG DELAYED RELEASE TAB PO SCH (10:02)
[2016-11-23] MEDS: ASPIRIN 325 MG TAB PO SCH (10:02)
[2016-11-23] MEDS: BENZTROPINE MESYLATE 2 MG TAB PO SCH (10:02)
[2016-11-23 18:00] VITALS: BP 118/62; PULSE 69; RESP 18; TEMP 98.1; O2SAT 94
--- NOTE | 2016-11-23 20:07 | HHI.PYPN ---
Subjective Remarks Pt seen and discussed with staff. He has been bizarre and responding to stimuli. "I didn't do it!" He expresses paranoid ideations during exam. No SI/HI Objective Alert: Yes [place]: Person, Place Mood: Other (irritable) Affect: Labile Memory Intact: Comment Hallucinations: Other (very poor denies that times appears to be responding to internal stimuli) Delusions: Yes Delusion Type: Paranoid Suicidal: Ideation (denies) Homicidal: Ideation (deny) Insight/Judgement poor Vitals/IOs Vital Signs Date Time Temp Pulse Resp B/P Pulse Ox O2 Delivery O2 Flow Rate FiO2 11/23/16 06:32 97.8 68 18 122/61 98 11/21/16 02:33 Room Air Intake and Output 11/22/16 11/22/16 11/23/16 08:00 16:00 00:00 Intake Total 0 ml 510 ml Balance 0 ml 510 ml Assessment & Plan Problem List: (1) Schizoaffective disorder, bipolar type ICD Code: F25.0 Assessment & Plan Continue current tx plan. Estimated LOS: days Justification for Cont. Inpt. 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
[2016-11-23 22:00] VITALS: BP 118/62; PULSE 69; RESP 18; TEMP 98.1; O2SAT 94
[2016-11-24 05:43] VITALS: BP 127/66; PULSE 68; RESP 17; TEMP 97.6; O2SAT 97
[2016-11-24] MEDS: PANTOPRAZOLE SOD 40 MG DELAYED RELEASE TAB PO SCH (09:16)
[2016-11-24] MEDS: ASPIRIN 325 MG TAB PO SCH (09:16)
[2016-11-24] MEDS: metFORMIN HCL 500 MG TAB PO SCH ×2 (09:16→17:29)
[2016-11-24] MEDS: BENZTROPINE MESYLATE 2 MG TAB PO SCH (09:16)
--- NOTE | 2016-11-24 13:08 | HHI.PYPN ---
Subjective Remarks Pt seen and discussed with staff. Pt demands to be taken to [place] "immediately " and is pleased when told that he is at [place]. Pt continues to be suspicious and paranoid. Staff report that he has been having random outbursts. Medicaiton compliant. No side effects. Objective Alert: Yes [place]: Person Mood: Other (irritable) Affect: Labile Memory Intact: Comment Hallucinations: Other (very poor denies that times appears to be responding to internal stimuli) Delusions: Yes Delusion Type: Paranoid Suicidal: Ideation (denies) Homicidal: Ideation (deny) Insight/Judgement poor Vitals/IOs Vital Signs Date Time Temp Pulse Resp B/P Pulse Ox O2 Delivery O2 Flow Rate FiO2 11/24/16 05:43 97.6 68 17 127/66 97 11/21/16 02:33 Room Air Intake and Output 11/23/16 11/23/16 11/24/16 08:00 16:00 00:00 Intake Total 360 ml 480 ml 2880 ml Balance 360 ml 480 ml 2880 ml Assessment & Plan Problem List: (1) Schizoaffective disorder, bipolar type ICD Code: F25.0 Assessment & Plan Continue current tx plan. Check U/A. Estimated LOS: days Justification for Cont. Inpt. impairments in safety Request HC Surrog/Guard Advoc?: Yes Sidra Quach MD Nov 24, 2016 13:08
[2016-11-24 18:00] VITALS: BP 137/71; PULSE 100; RESP 18; TEMP 97.6; O2SAT 94
[2016-11-24 19:14] LABS: BACTERIA, URINE FEW /hpf; BLOOD, URINE TRACE (NEG); COMMENT (UR) CULTURE INDICATED; CULTURE IF INDICATED CULTURE INDICATED; GLUCOSE,URINE NEG (NEG); KETONE, URINE NEG (NEG); MUCUS URINE FEW /lpf (OCC); NITRITE,URINE NEG (NEG); URINE COLOR YELLOW (YELLW/STRAW)
[2016-11-25 05:10] VITALS: BP 120/76; PULSE 72; RESP 18; TEMP 98; O2SAT 97
[2016-11-25] MEDS: ASPIRIN 325 MG TAB PO SCH (10:03)
[2016-11-25] MEDS: metFORMIN HCL 500 MG TAB PO SCH ×2 (10:03→16:48)
[2016-11-25] MEDS: BENZTROPINE MESYLATE 2 MG TAB PO SCH (10:03)
[2016-11-25] MEDS: PANTOPRAZOLE SOD 40 MG DELAYED RELEASE TAB PO SCH (10:03)
--- NOTE | 2016-11-25 14:31 | HHI.PYPN ---
Subjective Remarks Patient discussed treatment team, chart review, patient seen on unit. Patient continues somewhat irritable and confused, though continues to call me "Dr. Fleming" and not "isabell Butler" is behaviors somewhat improved today also Review of Systems Except as stated in HPI: all other systems reviewed are Neg Objective Alert: Yes [place]: Person Mood: Other (irritable) Affect: Labile Memory Intact: Comment Hallucinations: Other (very poor denies that times appears to be responding to internal stimuli) Delusions: Yes Delusion Type: Paranoid Suicidal: Ideation (denies) Homicidal: Ideation (deny) Insight/Judgement Very poor Labs Test 11/24/16 18:30 Urine Color YELLOW Urine Turbidity HAZY Urine pH 6.0 Urine Specific [place] 1.011 Urine Protein 30 mg/dL Urine Glucose (UA) NEG mg/dL Urine Ketones NEG mg/dL Urine Occult Blood TRACE Urine Nitrite NEG Urine Bilirubin NEG Urine Urobilinogen LESS THAN 2.0 MG/DL Urine Leukocyte Esterase LARGE Urine RBC 10 /hpf Urine WBC 70 /hpf Urine Bacteria FEW /hpf Urine Mucus FEW /lpf Urine Yeast (Budding) OCC Microscopic Urinalysis Comment CULTURE INDICATED Date/Time Procedure Status Source Growth 11/24/16 18:30 Urine Culture - Preliminary Resulted Urine Clean Catch Gram Negative K[place] Vitals/IOs Vital Signs Date Time Temp Pulse Resp B/P Pulse Ox O2 Delivery O2 Flow Rate FiO2 11/25/16 05:10 98.0 72 18 120/76 97 Intake and Output 11/24/16 11/24/16 11/25/16 08:00 16:00 00:00 Intake Total 0 ml 1200 ml Balance 0 ml 1200 ml Assessment & Plan Problem List: (1) Schizoaffective disorder, bipolar type ICD Code: F25.0 Assessment & Plan Estimated LOS: days patient continues confused psychotic, compliant medications , slight decrease in behavioral issues Justification for Cont. Inpt. At this time patient will decompensate if placed in a lower level of care Discharge Planning To be determined Request HC Surrog/Guard Advoc?: Yes Ravi Fleming MD Nov 25, 2016 14:31
[2016-11-25 18:00] VITALS: BP 128/67; PULSE 73; RESP 18; TEMP 98.5; O2SAT 100
[2016-11-25] MEDS: ATORVASTATIN 40 MG TAB PO SCH (20:09)
[2016-11-26 06:00] VITALS: BP 113/56; PULSE 67; RESP 17; TEMP 98.2; O2SAT 95
[2016-11-26] MEDS: PANTOPRAZOLE SOD 40 MG DELAYED RELEASE TAB PO SCH (09:57)
[2016-11-26] MEDS: ASPIRIN 325 MG TAB PO SCH (09:58)
[2016-11-26] MEDS: metFORMIN HCL 500 MG TAB PO SCH ×2 (09:58→17:56)
[2016-11-26] MEDS: BENZTROPINE MESYLATE 2 MG TAB PO SCH (09:58)
--- NOTE | 2016-11-26 15:51 | HHI.PYPN ---
Subjective Remarks Patient seen in day room nurse Fernanda, and medical student Brooklynn, chart reviewed, somewhat calmer today still isolate still irritable though today identifies me as Dr. Fleming. Compliant medications. Review of Systems Except as stated in HPI: all other systems reviewed are Neg Objective Alert: Yes [place]: Person Mood: Calm (today), Other (irritable) Affect: Labile (less today) Memory Intact: Comment Hallucinations: Other (very poor denies that times appears to be responding to internal stimuli) Delusions: Yes Delusion Type: Paranoid Suicidal: Ideation (denies) Homicidal: Ideation (deny) Insight/Judgement Poor Labs Date/Time Procedure Status Source Growth 11/24/16 18:30 Urine Culture - Final Complete Urine Clean Catch Klebsiella Pneumoniae Vitals/IOs Vital Signs Date Time Temp Pulse Resp B/P Pulse Ox O2 Delivery O2 Flow Rate FiO2 11/26/16 06:00 98.2 67 17 113/56 95 Intake and Output 11/25/16 11/25/16 11/26/16 08:00 16:00 00:00 Intake Total 1200 ml 1140 ml Balance 1200 ml 1140 ml Assessment & Plan Problem List: (1) Schizoaffective disorder, bipolar type ICD Code: F25.0 Assessment & Plan Estimated LOS: days patient remains somewhat paranoid psychotic though calmer today less behavioral issues today Justification for Cont. Inpt. At this time patient would significantly decompensated placed in a lower level of care Discharge Planning To be determined Request HC Surrog/Guard Advoc?: Yes Ravi Fleming MD Nov 26, 2016 15:51
[2016-11-26 18:15] VITALS: BP 112/63; PULSE 70; RESP 18; TEMP 97.2
[2016-11-26] MEDS: ATORVASTATIN 40 MG TAB PO SCH (20:57)
[2016-11-27 06:07] VITALS: BP 120/64; PULSE 66; RESP 18; TEMP 97.8; O2SAT 97
[2016-11-27 06:18] VITALS: BP 120/64; PULSE 76; RESP 18; TEMP 97.8; O2SAT 97
[2016-11-27] MEDS: BENZTROPINE MESYLATE 2 MG TAB PO SCH (09:00)
[2016-11-27] MEDS: metFORMIN HCL 500 MG TAB PO SCH ×2 (09:56→17:02)
[2016-11-27] MEDS: ASPIRIN 325 MG TAB PO SCH (09:56)
[2016-11-27] MEDS: PANTOPRAZOLE SOD 40 MG DELAYED RELEASE TAB PO SCH (09:56)
--- NOTE | 2016-11-27 10:05 | HHI.PYPN ---
Subjective Remarks Patient seen in his room with nurse Carmen, patient compliant medications, patient continues somewhat vigilant and irritable, was made aware of [place] [address] hearing tomorrow patient seen to except that without problems he also discussed the possibility of referral the [facility] hospital he seemed, that also. Patient is urinalysis culture came back positive for Klebsiella pneumonia will have hospitalist reconsult with us and make treatment recommendations Review of Systems Except as stated in HPI: all other systems reviewed are Neg Other Patient making no specific UTI complaints though UA was positive for Klebsiella pneumonia Objective Alert: Yes [place]: Person Mood: Calm (today), Other (irritable) Affect: Labile (less today) Memory Intact: Comment Hallucinations: Other (very poor denies that times appears to be responding to internal stimuli) Delusions: Yes Delusion Type: Paranoid Suicidal: Ideation (denies) Homicidal: Ideation (deny) Insight/Judgement Poor Labs Date/Time Procedure Status Source Growth 11/24/16 18:30 Urine Culture - Final Complete Urine Clean Catch Klebsiella Pneumoniae Vitals/IOs Vital Signs Date Time Temp Pulse Resp B/P Pulse Ox O2 Delivery O2 Flow Rate FiO2 11/27/16 06:18 97.8 76 18 120/64 97 Intake and Output 11/26/16 11/26/16 11/27/16 08:00 16:00 00:00 Intake Total 1710 ml Balance 1710 ml Assessment & Plan Problem List: (1) Schizoaffective disorder, bipolar type ICD Code: F25.0 Assessment & Plan Estimated LOS: days patient scheduled for [place] tomorrow, continues vigilant somewhat psychotic, is aware of [place] and referral to [facility], also aware of positive urine culture, we are awaiting comment from hospitalist referral Justification for Cont. Inpt. At this time patient will decompensate or placed in a lower level of care Discharge Planning To be determined Request HC Surrog/Guard Advoc?: Yes Ravi Fleming MD Nov 27, 2016 10:05
--- NOTE | 2016-11-27 14:30 | HHI.PR ---
Subjective Remarks Reconsult: UTI Culture positive for Klebsiella Pneumoniae Patient sitting in day room in psych unit in no acute distress. Patient no willing to talk with, "Just leave me alone, I'm fine." Offers no specific complaints Objective Vitals Vital Signs Date Time Temp Pulse Resp B/P Pulse Ox O2 Delivery O2 Flow Rate FiO2 11/27/16 06:18 97.8 76 18 120/64 97 11/27/16 06:07 97.8 66 18 120/64 97 11/26/16 18:15 97.2 70 18 112/63 I/O 11/26/16 11/26/16 11/26/16 11/27/16 11/27/16 11/27/16 07:00 15:00 23:00 07:00 15:00 23:00 Intake Total 1710 ml 240 ml Balance 1710 ml 240 ml Intake Oral 870 ml 240 ml Oral Supplement 840 ml # Voids 4 6 2 # Bowel Movements 1 Objective Remarks GENERAL: This is a well-nourished, well-developed patient, in no apparent distress. SKIN: No rashes, ecchymoses or lesions. Cool and dry. HEAD: Atraumatic. Normocephalic. No temporal or scalp tenderness. EYES: EOMI, No scleral icterus. No injection or drainage. RESPIRATORY: Non labored no use of accessory muscles GASTROINTESTINAL: No visible distention MUSCULOSKELETAL: moves all four extremities spontaneously NEUROLOGICAL: Awake and alert. Confused. Patient refusing auscultation A/P Problem List: (1) HLD (hyperlipidemia) ICD Code: E78.5 Status: Chronic (2) DM (diabetes mellitus) ICD Code: E11.9 Status: Chronic (3) HTN (hypertension) ICD Code: I10 Status: Chronic (4) GERD (gastroesophageal reflux disease) ICD Code: K21.9 Status: Chronic (5) Anemia ICD Code: D64.9 Status: Chronic (6) A-fib ICD Code: I48.91 Status: Chronic (7) Dementia ICD Code: F03.90 Status: Chronic (8) COPD (chronic obstructive pulmonary disease) ICD Code: J44.9 Status: Chronic Assessment and Plan This is a 66-year-old male patient with past medical history which includes dementia,schizophrenia, atrial fibrillation, diabetes mellitus, hypertension hyperlipidemia Patient previously seen in the hospital last admission was with urinary tract infection treated with ciprofloxacin. Currently Admitted to inpatient psychiatry. We were consulted for urinary tract infection culture positive for Klebsiella pneumonia Consulted for medical management. Schizophrenia, aggressive behavior - managed by psychiatry team History of atrial fibrillation - continue aspirin daily. Rate controlled DM 2 - continue metformin 500 mg twice a day - Latest hemoglobin A1c 11/02/16 6.4 HTN, history - not in any BP meds - Monitor BP. Controlled. Hyperlipidemia - continue atorvastatin UTI culture positive for Klebsiella pneumonia has completed Ciprofloxacin 10 days in the past will start Bactrim DS by mouth twice a day 14 days. DVT prop ambulatory Patient appears medically stable at this time will sign off the patient's condition changes or further assistance is needed please reconsult. Discussed plan of care with patient as well as nursing Recommend patient follow up with PCP after discharge and complete 14 days of Bactrim DS Written by Ivon Devi, acting as scribe for Dr. Ortiz on 11/27/16 at 14: 29. All or portions of this note were transcribed by sohae JOE Polo. I, Dr. Yazan Ortiz personally performed the history, physical exam, and medical decision making; and confirmed the accuracy of the information in the transcribed note. Authenticated by Dr. Yazan Ortiz on 11/27/16 at 14:29. Ivon Devi Nov 27, 2016 14:30 Berry Ortiz DO Nov 27, 2016 23:52
[2016-11-27 19:36] VITALS: BP 114/56; PULSE 85; TEMP 99.6; O2SAT 95
[2016-11-27] MEDS: ATORVASTATIN 40 MG TAB PO SCH (21:40)
[2016-11-27] MEDS: SULFAMETHOXAZOLE-TRIMETHOPRIM DS 800-160 MG TAB PO SCH (21:40)
[2016-11-28 06:07] VITALS: BP 109/57; PULSE 71; RESP 18; TEMP 96.6; O2SAT 97
[2016-11-28] MEDS: SULFAMETHOXAZOLE-TRIMETHOPRIM DS 800-160 MG TAB PO SCH ×2 (09:56→21:14)
[2016-11-28] MEDS: metFORMIN HCL 500 MG TAB PO SCH ×2 (09:56→17:10)
[2016-11-28] MEDS: BENZTROPINE MESYLATE 2 MG TAB PO SCH (09:56)
[2016-11-28] MEDS: ASPIRIN 325 MG TAB PO SCH (09:56)
[2016-11-28] MEDS: PANTOPRAZOLE SOD 40 MG DELAYED RELEASE TAB PO SCH (09:56)
--- NOTE | 2016-11-28 13:14 | HHI.PYPN ---
Subjective Remarks Patient seen in [place], retained by Special Collections Librarian Saurabh, patient continues on state referral. Patient continues no significant behavioral problems at this time calm continued recognize me as of Dr. Fleming". Review of Systems Except as stated in HPI: all other systems reviewed are Neg Objective Alert: Yes [place]: Person Mood: Calm (today), Other (irritable) Affect: Labile (less today) Memory Intact: Comment Hallucinations: Other (very poor denies that times appears to be responding to internal stimuli) Delusions: Yes Delusion Type: Paranoid Suicidal: Ideation (denies) Homicidal: Ideation (deny) Insight/Judgement Very poor Labs Date/Time Procedure Status Source Growth 11/24/16 18:30 Urine Culture - Final Complete Urine Clean Catch Klebsiella Pneumoniae Vitals/IOs Vital Signs Date Time Temp Pulse Resp B/P Pulse Ox O2 Delivery O2 Flow Rate FiO2 11/28/16 06:07 96.6 71 18 109/57 97 Intake and Output 11/27/16 11/27/16 11/28/16 08:00 16:00 00:00 Intake Total 240 ml 1080 ml Balance 240 ml 1080 ml Assessment & Plan Problem List: (1) Schizoaffective disorder, bipolar type ICD Code: F25.0 Assessment & Plan Estimated LOS: days patient continues confused somewhat psychotic, though behaviors have softened somewhat. Compliant medications. Placement remains quite problematic Justification for Cont. Inpt. At this time patient will decompensate if placed in the lower level of care Discharge Planning To be determined Request HC Surrog/Guard Advoc?: Yes Ravi Fleming MD Nov 28, 2016 13:14
--- NOTE | 2016-11-28 13:24 | PD.PN.STU ---
Subjective Remarks patient seen in [place] this morning. Seen sitting comfortably in day room this afternoon with nurse Kumar and Dr. Fleming.. Has no complaints at this time. . Objective Vitals Vital Signs Date Time Temp Pulse Resp B/P Pulse Ox O2 Delivery O2 Flow Rate FiO2 11/28/16 06:07 96.6 71 18 109/57 97 11/27/16 19:36 99.6 85 114/56 95 I/O 11/27/16 11/27/16 11/27/16 11/28/16 11/28/16 11/28/16 07:00 15:00 23:00 07:00 15:00 23:00 Intake Total 240 ml 960 ml 120 ml 840 ml Balance 240 ml 960 ml 120 ml 840 ml Intake Oral 240 ml 720 ml 120 ml 840 ml Oral Supplement 240 ml # Voids 2 1 1 # Bowel Movements 1 Objective Remarks Appears comfortable, in no acute distress. Behavior in unit improved, no aggressive episodes reported by nurses or staff. Affect is flat, speech slow and mumbled. Insight and judgment poor. A/P Assessment and Plan Patient doing well on unit, no new concerns at this time. Will keep medication regimen and continue to follow. Se[place] and continuos stay placed per Judge Hanna Bauer. Discharge Planning Awaiting placement [facility]. Doreen Butcher M3 Nov 28, 2016 13:24
[2016-11-28 18:37] VITALS: BP 113/71; PULSE 69; RESP 18; TEMP 99; O2SAT 100
[2016-11-28] MEDS: ATORVASTATIN 40 MG TAB PO SCH (21:14)
[2016-11-29 06:34] VITALS: BP 126/60; PULSE 63; RESP 16; TEMP 97.8; O2SAT 98
[2016-11-29] MEDS: SULFAMETHOXAZOLE-TRIMETHOPRIM DS 800-160 MG TAB PO SCH ×2 (08:31→21:25)
[2016-11-29] MEDS: ASPIRIN 325 MG TAB PO SCH (08:31)
[2016-11-29] MEDS: metFORMIN HCL 500 MG TAB PO SCH ×2 (08:31→17:16)
[2016-11-29] MEDS: PANTOPRAZOLE SOD 40 MG DELAYED RELEASE TAB PO SCH (08:31)
[2016-11-29] MEDS: BENZTROPINE MESYLATE 2 MG TAB PO SCH (08:31)
--- NOTE | 2016-11-29 09:05 | HHI.PYPN ---
Subjective Remarks Patient seen in day room nurse Kumar, patient continues calm, no significant behavioral problems continues to speak to me as Dr. Fleming. Patient is having some significant insomnia at this time. It appears to been some difficulty with finding appropriate health care surrogate/guardian advocate. Mini-Mental this time patient has recovered the point where feel he now has capacity to sign for his medications. Thus I'll cancel the health care surrogate and guardian advocate. However feel he still meets criteria for involuntary psychiatric hospitalization under the [place] thus we'll continue him on his involuntary status. Patient appears willing now to continue his medications as per the med reconciliation Review of Systems Except as stated in HPI: all other systems reviewed are Neg Objective Alert: Yes [place]: Person Mood: Calm (today), Other (irritable) Affect: Labile (less today) Memory Intact: Comment Hallucinations: Other (very poor denies that times appears to be responding to internal stimuli) Delusions: Yes Delusion Type: Paranoid Suicidal: Ideation (denies) Homicidal: Ideation (deny) Insight/Judgement Poor Labs Date/Time Procedure Status Source Growth 11/24/16 18:30 Urine Culture - Final Complete Urine Clean Catch Klebsiella Pneumoniae Vitals/IOs Vital Signs Date Time Temp Pulse Resp B/P Pulse Ox O2 Delivery O2 Flow Rate FiO2 11/29/16 06:34 97.8 63 16 126/60 98 Intake and Output 11/28/16 11/28/16 11/29/16 08:00 16:00 00:00 Intake Total 840 ml 720 ml Balance 840 ml 720 ml Assessment & Plan Problem List: (1) Schizoaffective disorder, bipolar type ICD Code: F25.0 Assessment & Plan Estimated LOS: days patient continue somewhat psychotic and confused though overall increased cooperative. At this of a feel patient does have capacity to sign for his medications we'll cancel health care surrogate and guardian advocate will continue the involuntary admission status. It appears patient has been started on antibiotics for his urinary tract infection Justification for Cont. Inpt. At this time patient will decompensate if placed in the lower level of care Discharge Planning To be determined Request HC Surrog/Guard Advoc?: No Ravi Fleming MD Nov 29, 2016 09:05
[2016-11-29 18:06] VITALS: BP 111/62; PULSE 78; RESP 18; TEMP 98.8; O2SAT 98
[2016-11-29] MEDS: ATORVASTATIN 40 MG TAB PO SCH (21:25)
[2016-11-29] MEDS: traZODone HCL 50 MG TAB PO PRN (21:25)
[2016-11-29] MEDS: LITHIUM CARBONATE 450 MG CONTROLLED RELEASE TAB PO SCH (21:45)
[2016-11-30] MEDS: LORazepam 0.5 MG TAB age > 65 yrs PO PRN (02:42)
[2016-11-30] MEDS: diphenhydrAMINE HCL 50 MG CAP - HS PRN PO ×2 (02:42→21:02)
[2016-11-30 06:00] VITALS: BP 120/66; PULSE 84; RESP 18; TEMP 98; O2SAT 98
[2016-11-30] MEDS: PANTOPRAZOLE SOD 40 MG DELAYED RELEASE TAB PO SCH (08:40)
[2016-11-30] MEDS: metFORMIN HCL 500 MG TAB PO SCH ×2 (08:40→17:40)
[2016-11-30] MEDS: SULFAMETHOXAZOLE-TRIMETHOPRIM DS 800-160 MG TAB PO SCH ×2 (08:40→21:02)
[2016-11-30] MEDS: BENZTROPINE MESYLATE 2 MG TAB PO SCH (08:40)
[2016-11-30] MEDS: ASPIRIN 325 MG TAB PO SCH (08:41)
[2016-11-30] MEDS: ARIPiprazole 30 MG TAB PO SCH (08:41)
[2016-11-30] MEDS: ACETAMINOPHEN 325 MG TAB PO PRN ×2 (09:56→21:02)
--- NOTE | 2016-11-30 11:36 | HHI.PYPN ---
Subjective Remarks Patient was seen and case discussed with nursing. Patient is alert and oriented 2. He remains mildly inappropriate. He has been behaving well on the unit and has not had any outbursts. Poor insight into his admission. Patient is compliant with medications. Denies suicidal ideations thought content or plan. Objective Alert: Yes [place]: Person Mood: Calm (today) Affect: Restricted Memory Intact: Comment Hallucinations: Other (denies work responding to internal stimuli) Delusions: Yes Delusion Type: Paranoid Suicidal: Ideation (denies) Homicidal: Ideation (deny) Insight/Judgement Poor Vitals/IOs Vital Signs Date Time Temp Pulse Resp B/P Pulse Ox O2 Delivery O2 Flow Rate FiO2 11/30/16 06:00 98.0 84 18 120/66 98 Intake and Output 11/29/16 11/29/16 11/30/16 08:00 16:00 00:00 Intake Total 240 ml 960 ml 840 ml Balance 240 ml 960 ml 840 ml Assessment & Plan Problem List: (1) Schizoaffective disorder, bipolar type ICD Code: F25.0 Assessment & Plan Continue current treatment plan Justification for Cont. Inpt. Patient will decompensate in a less restrictive setting Request HC Surrog/Guard Advoc?: No Rito Ramos DO Nov 30, 2016 11:36
[2016-11-30 18:27] VITALS: BP 123/80; PULSE 78; RESP 19; TEMP 98.3; O2SAT 97
[2016-11-30] MEDS: traZODone HCL 50 MG TAB PO PRN (21:01)
[2016-11-30] MEDS: ATORVASTATIN 40 MG TAB PO SCH (21:02)
[2016-11-30] MEDS: LITHIUM CARBONATE 450 MG CONTROLLED RELEASE TAB PO SCH (21:02)
[2016-12-01] MEDS: LORazepam 0.5 MG TAB age > 65 yrs PO PRN (00:46)
[2016-12-01 05:59] VITALS: BP 118/57; PULSE 71; RESP 18; TEMP 96.9; O2SAT 98
[2016-12-01] MEDS: PANTOPRAZOLE SOD 40 MG DELAYED RELEASE TAB PO SCH (08:10)
[2016-12-01] MEDS: ARIPiprazole 30 MG TAB PO SCH (08:10)
[2016-12-01] MEDS: ASPIRIN 325 MG TAB PO SCH (08:11)
[2016-12-01] MEDS: metFORMIN HCL 500 MG TAB PO SCH (08:11)
[2016-12-01] MEDS: BENZTROPINE MESYLATE 2 MG TAB PO SCH (08:11)
[2016-12-01] MEDS: SULFAMETHOXAZOLE-TRIMETHOPRIM DS 800-160 MG TAB PO SCH ×2 (08:11→20:48)
--- NOTE | 2016-12-01 11:49 | HHI.PYPN ---
Subjective Remarks Patient was seen and case discussed with nursing. Patient remains on good behavior. He is interactive with staff and peers. Having his toenails painted. Compliant with his medications. Continues to deny psychotic symptoms. Thought process is grossly disorganized Objective Alert: Yes [place]: Person, Place Mood: Calm (today) Affect: Blunted Memory Intact: Comment Hallucinations: Other (denies work responding to internal stimuli) Delusions: Yes Delusion Type: Paranoid (improving) Suicidal: Ideation (denies) Homicidal: Ideation (deny) Insight/Judgement Poor Vitals/IOs Vital Signs Date Time Temp Pulse Resp B/P Pulse Ox O2 Delivery O2 Flow Rate FiO2 12/01/16 05:59 96.9 71 18 118/57 98 Intake and Output 11/30/16 11/30/16 12/01/16 08:00 16:00 00:00 Intake Total 1080 ml 1800 ml Balance 1080 ml 1800 ml Assessment & Plan Problem List: (1) Schizoaffective disorder, bipolar type ICD Code: F25.0 Assessment & Plan Continue current treatment plan Justification for Cont. Inpt. Patient will decompensate in a less restrictive setting Request HC Surrog/Guard Advoc?: No Rito Ramos DO Dec 01, 2016 11:49
[2016-12-01 12:11] VITALS: BP 100/58; PULSE 75; RESP 18
[2016-12-01 12:45] VITALS: BP 121/59; PULSE 60
--- NOTE | 2016-12-01 12:52 | PD.CONS ---
[facility] Requested By Dr. Ramos Reason for Consult Medical management, patient inadvertently received antihypertensive for another patient [facility] Diagnoses: (1) HLD (hyperlipidemia) (2) DM (diabetes mellitus) (3) HTN (hypertension) (4) GERD (gastroesophageal reflux disease) (5) Anemia (6) A-fib (7) Dementia (8) COPD (chronic obstructive pulmonary disease) History of Present Illness 66-year-old male admitted to the psychiatric unit for flareup of schizoaffective disorder. He has disorganized thought and behavior. He can answer some questions and follow commands but is otherwise confuse. It was noted today the patient was mistakenly given the following medications who belong to another patient: BuSpar 10 mg 1, Seroquel 50 mg 1, iron 325 mg 1, Glucophage 500 mg 1, Clonopin 0.5 mg 1, Norvasc 10 mg 1, Cozaar 100 mg 1, aspirin 81 mg 1, and Lexapro 20 mg 1. I was consulted by the psychiatrist due to concern for complications from these medications. The patient is seen in the day room. As noted above he is unable to provide a medical or surgical history patient denies any chest pain, pressure, shortness of breath, or lightheadedness. He states he is supposed to get out of here tomorrow. His current blood pressure is 120/66. He received the medications about 2 hours ago. Review of Systems ROS Limitations: Clinical Condition, Poor Historian Respiratory: DENIES: Cough, Shortness of breath Cardiovascular: DENIES: Chest pain, Palpitations Psychiatric: COMPLAINS OF: Confusion, Agitation Past Family Social History Allergies: Coded Allergies: Calamine (Verified Allergy, Severe, Rash, 11/20/16) Olanzapine (Verified Adverse Reaction, Severe, THROMBOCYTOPENIA, 11/20/16) Past Medical History Per EMR History of Atrial fibrillation, diabetes mellitus, hypertension not on meds, hyperlipidemia Past Surgical History Unable to obtain Family History Unable to obtain. Social History No reports of alcohol, tobacco, or illicit drugs. Physical Exam Vital Signs Vital Signs Date Time Temp Pulse Resp B/P Pulse Ox O2 Delivery O2 Flow Rate FiO2 12/01/16 12:45 60 121/59 12/01/16 12:11 75 18 100/58 12/01/16 05:59 96.9 71 18 118/57 98 11/30/16 18:27 98.3 78 19 123/80 97 Physical Exam GENERAL: Confused male in no apparent distress. He got up from the chair spontaneously. He denies lightheadedness SKIN: No rashes, ecchymoses or lesions. Cool and dry. EYES: Pupils equal round and reactive. ENT: Nose without drainage Airway patent. NECK: Trachea midline. No JVD or lymphadenopathy. Supple, nontender, no meningeal signs. CARDIOVASCULAR: Regular rate and rhythm without murmurs, gallops, or rubs. RESPIRATORY: Clear to auscultation. Breath sounds equal bilaterally. No wheezes , rales, or rhonchi. GASTROINTESTINAL: Abdomen soft, non-tender, nondistended. MUSCULOSKELETAL: Extremities without clubbing, cyanosis, or edema. NEUROLOGICAL: Awake and alert. Follow commands. No focal weakness. Confused. Assessment and Plan Problem List: (1) HLD (hyperlipidemia) ICD Code: E78.5 Status: Chronic (2) DM (diabetes mellitus) ICD Code: E11.9 Status: Chronic (3) HTN (hypertension) ICD Code: I10 Status: Chronic (4) GERD (gastroesophageal reflux disease) ICD Code: K21.9 Status: Chronic (5) Anemia ICD Code: D64.9 Status: Chronic (6) A-fib ICD Code: I48.91 Status: Chronic (7) Dementia ICD Code: F03.90 Status: Chronic (8) COPD (chronic obstructive pulmonary disease) ICD Code: J44.9 Status: Chronic Assessment and Plan 66-year-old male with: Schizophrenia, disorganized thought and intermittent aggressive behavior - managed by psychiatry team Medications administered in error: Patient inadvertently received medications ordered for a different patient. These include BuSpar 10 mg 1, Seroquel 50 mg 1, iron 325 mg 1, Glucophage 500 mg 1, Clonopin 0.5 mg 1, Norvasc 10 mg 1, Cozaar 100 mg 1, aspirin 81 mg 1, and Lexapro 20 mg 1. - Currently appear to be asymptomatic. Most concerning is to ensure his blood pressure remain stable. It is currently stable. Will encourage oral fluid intake. RN to recheck blood pressures every 2 hours 2, then every 4 hours 4. - We'll continue to monitor. History of atrial fibrillation - continue aspirin daily. Rate controlled without medications. DM 2 - continue metformin 500 mg twice a day. Patient received an additional dose today hold the dose for tonight. - Latest hemoglobin A1c 11/02/16 6.4 HTN, history -controlled on no medications. -See discussion above regarding medication error. UTI culture positive for Klebsiella pneumonia: Currently being treated with Bactrim. DVT prop ambulatory Thank you for this consultation. Will follow up. DW with Dr. Ramos and RN. Marisela Del Rio MD Dec 01, 2016 12:52
[2016-12-01 14:50] VITALS: BP 116/58; PULSE 62
[2016-12-01 20:25] VITALS: BP 108/58; PULSE 63; RESP 17; TEMP 98; O2SAT 98
[2016-12-01] MEDS: ATORVASTATIN 40 MG TAB PO SCH (20:48)
[2016-12-02] MEDS: traZODone HCL 50 MG TAB PO PRN ×2 (01:24→20:41)
[2016-12-02] MEDS: hydrOXYzine HCL 50 MG TAB PO PRN ×2 (01:24→16:56)
[2016-12-02 02:00] VITALS: BP 110/65; PULSE 74; RESP 20; TEMP 97.2; O2SAT 97
[2016-12-02 05:04] VITALS: BP 120/59; PULSE 67; RESP 18; O2SAT 100
[2016-12-02] MEDS: ARIPiprazole 30 MG TAB PO SCH (08:44)
[2016-12-02] MEDS: BENZTROPINE MESYLATE 2 MG TAB PO SCH (08:44)
[2016-12-02] MEDS: PANTOPRAZOLE SOD 40 MG DELAYED RELEASE TAB PO SCH (08:44)
[2016-12-02] MEDS: SULFAMETHOXAZOLE-TRIMETHOPRIM DS 800-160 MG TAB PO SCH ×2 (08:46→20:41)
--- NOTE | 2016-12-02 13:31 | HHI.PR ---
Subjective Remarks Follow up: mistakenly given the following medications who belong to another patient: BuSpar 10 mg 1, Seroquel 50 mg 1, iron 325 mg 1, Glucophage 500 mg 1, Clonopin 0.5 mg 1, Norvasc 10 mg 1, Cozaar 100 mg 1, aspirin 81 mg 1, and Lexapro 20 mg 1. Patient seen today in inpatient psych unit. Awake and Alert to self but continues to be confused. Appears to be in no acute distress. Asking about a hair cut and asking to go home. Objective Vitals Vital Signs Date Time Temp Pulse Resp B/P Pulse Ox O2 Delivery O2 Flow Rate FiO2 12/02/16 05:04 67 18 120/59 100 12/02/16 02:00 97.2 74 20 110/65 97 12/01/16 20:25 98.0 63 17 108/58 98 12/01/16 14:50 62 116/58 I/O 12/01/16 12/01/16 12/01/16 12/02/16 12/02/16 12/02/16 07:00 15:00 23:00 07:00 15:00 23:00 Intake Total 0 ml 1680 ml 0 ml 960 ml Balance 0 ml 1680 ml 0 ml 960 ml Intake Oral 0 ml 1680 ml 0 ml 960 ml # Voids 1 5 2 # Bowel Movements 0 0 Objective Remarks GENERAL: Confused male in no apparent distress. He denies lightheadedness SKIN: No rashes, ecchymoses or lesions. Cool and dry. EYES: EOMI intact. ENT: Nose without drainage Airway patent. NECK: Trachea midline. No JVD or lymphadenopathy. Supple, nontender, no meningeal signs. CARDIOVASCULAR: Regular rate and rhythm without murmurs, gallops, or rubs. RESPIRATORY: Clear to auscultation. Breath sounds equal bilaterally. No wheezes , rales, or rhonchi. GASTROINTESTINAL: Abdomen soft, non-tender, nondistended. MUSCULOSKELETAL: Extremities without clubbing, cyanosis, or edema. NEUROLOGICAL: Awake and alert. Follow commands. No focal weakness. Confused. A/P Problem List: (1) HLD (hyperlipidemia) ICD Code: E78.5 Status: Chronic (2) DM (diabetes mellitus) ICD Code: E11.9 Status: Chronic (3) HTN (hypertension) ICD Code: I10 Status: Chronic (4) GERD (gastroesophageal reflux disease) ICD Code: K21.9 Status: Chronic (5) Anemia ICD Code: D64.9 Status: Chronic (6) A-fib ICD Code: I48.91 Status: Chronic (7) Dementia ICD Code: F03.90 Status: Chronic (8) COPD (chronic obstructive pulmonary disease) ICD Code: J44.9 Status: Chronic Assessment and Plan This is a 66-year-old male patient with past medical history which includes dementia,schizophrenia, atrial fibrillation, diabetes mellitus, hypertension hyperlipidemia Patient previously seen in the hospital last admission was with urinary tract infection treated with ciprofloxacin. Currently Admitted to inpatient psychiatry. We were consulted for urinary tract infection culture positive for Klebsiella pneumonia Consulted for medical management. Schizophrenia, disorganized thought and intermittent aggressive behavior - managed by psychiatry team Medications administered in error: Patient inadvertently received medications ordered for a different patient. These include BuSpar 10 mg 1, Seroquel 50 mg 1, iron 325 mg 1, Glucophage 500 mg 1, Clonopin 0.5 mg 1, Norvasc 10 mg 1, Cozaar 100 mg 1, aspirin 81 mg 1, and Lexapro 20 mg 1. - Currently appear to be asymptomatic. Most concerning is to ensure his blood pressure remain stable. It is currently stable. Will encourage oral fluid intake. - continue to monitor. History of atrial fibrillation - continue aspirin daily. Rate controlled without medications. DM 2 - continue metformin 500 mg twice a day. - Latest hemoglobin A1c 11/02/16 6.4 HTN, history -controlled on no medications. -See discussion above regarding medication error. UTI culture positive for Klebsiella pneumonia: Currently being treated with Bactrim. DVT prop ambulatory Discussed with patient and nursing Written by Ivon Devi, acting as scribe for Dr. Daly on 12/02/16 at 13:40. Attending Statement All or portions of this note were transcribed by scribcliff Devi. I, Dr. Alex Jimenez personally performed the history, physical exam, and medical decision making; and confirmed the accuracy of the information in the transcribed note. Authenticated by Dr. Alex Jimenez on 12/02/16 at 16:45. Ivon Devi Dec 02, 2016 13:31 Alex Nguyen MD Dec 11, 2016 20:10
--- NOTE | 2016-12-02 16:08 | HHI.PYPN ---
Subjective Remarks Patient discussed with treatment team and Stan and another surgical device sales representative from [facility]. They shared with us the dyscontrol good symmetry occur in the less restrictive setting of the [facility] as opposed to the control of our milieu. It appears patient became more explosive and labile. We will add Tegretol 100 mg chewable twice a day to the regiment and continue to monitor Review of Systems Except as stated in HPI: all other systems reviewed are Neg Objective Alert: Yes [place]: Person, Place Mood: Calm (today) Affect: Blunted Memory Intact: Comment Hallucinations: Other (denies work responding to internal stimuli) Delusions: Yes Delusion Type: Paranoid (improving) Suicidal: Ideation (denies) Homicidal: Ideation (deny) Insight/Judgement Very poor Vitals/IOs Vital Signs Date Time Temp Pulse Resp B/P Pulse Ox O2 Delivery O2 Flow Rate FiO2 12/02/16 05:04 67 18 120/59 100 12/02/16 02:00 97.2 Intake and Output 12/01/16 12/01/16 12/02/16 08:00 16:00 00:00 Intake Total 0 ml 1680 ml Balance 0 ml 1680 ml Assessment & Plan Problem List: (1) Schizoaffective disorder, bipolar type ICD Code: F25.0 Assessment & Plan Estimated LOS: days patient continues labile some paranoia. It appears to express himself more less restrictive setting. We will add Tegretol to the regimen Justification for Cont. Inpt. At this time patient would decompensate if placed in the lower level of care Discharge Planning To be determined Request HC Surrog/Guard Advoc?: Ravi Mcrae MD Dec 02, 2016 16:08
[2016-12-02] MEDS: LORazepam 0.5 MG TAB age > 65 yrs PO PRN (17:15)
[2016-12-02] MEDS: metFORMIN HCL 500 MG TAB PO SCH (17:15)
[2016-12-02 18:33] VITALS: BP 109/66; PULSE 76; RESP 18; TEMP 97.7; O2SAT 97
[2016-12-02] MEDS: LITHIUM CARBONATE 450 MG CONTROLLED RELEASE TAB PO SCH (20:41)
[2016-12-02] MEDS: ATORVASTATIN 40 MG TAB PO SCH (20:41)
[2016-12-03 06:09] VITALS: BP 103/56; PULSE 62; RESP 18; TEMP 97.4; O2SAT 99
--- NOTE | 2016-12-03 10:19 | HHI.PYPN ---
Subjective Remarks Patient seen in day room with nurse Maritza and medical student Brooklynn, chart review, it appears patient showing some resistance to addition of Tegretol. He refused at bedtime dose yesterday. Also check lithium level was had 0.4 will increase lithium to 450 mg twice a day check dose to 3 days. We'll continue to encourage compliance with medication. Today he was more irritable and angry with me Review of Systems Except as stated in HPI: all other systems reviewed are Neg Objective Alert: Yes [place]: Person, Place Mood: Calm (today) Affect: Blunted Memory Intact: Comment Hallucinations: Other (denies work responding to internal stimuli) Delusions: Yes Delusion Type: Paranoid (improving) Suicidal: Ideation (denies) Homicidal: Ideation (deny) Insight/Judgement Very poor Vitals/IOs Vital Signs Date Time Temp Pulse Resp B/P Pulse Ox O2 Delivery O2 Flow Rate FiO2 12/03/16 06:09 97.4 62 18 103/56 99 Intake and Output 12/02/16 12/02/16 12/03/16 08:00 16:00 00:00 Intake Total 480 ml 480 ml 2040 ml Balance 480 ml 480 ml 2040 ml Assessment & Plan Problem List: (1) Schizoaffective disorder, bipolar type ICD Code: F25.0 Assessment & Plan Estimated LOS: days patient continues paranoid angry irritable labile with resistance to medication changes. See medication changes above Justification for Cont. Inpt. At this time patient will decompensate and placed in the lower level of care Discharge Planning To be determined Request HC Surrog/Guard Advoc?: No Ravi Fleming MD Dec 03, 2016 10:19
[2016-12-03] MEDS: PANTOPRAZOLE SOD 40 MG DELAYED RELEASE TAB PO SCH (11:40)
[2016-12-03] MEDS: ARIPiprazole 30 MG TAB PO SCH (11:40)
[2016-12-03] MEDS: SULFAMETHOXAZOLE-TRIMETHOPRIM DS 800-160 MG TAB PO SCH ×2 (11:40→20:06)
[2016-12-03] MEDS: ASPIRIN 325 MG TAB PO SCH (11:40)
[2016-12-03] MEDS: metFORMIN HCL 500 MG TAB PO SCH ×2 (11:40→17:20)
[2016-12-03] MEDS: BENZTROPINE MESYLATE 2 MG TAB PO SCH (11:40)
--- NOTE | 2016-12-03 15:12 | HHI.PR ---
Subjective Remarks Follow up visit mistakenly given the following medications who belong to another patient: BuSpar 10 mg 1, Seroquel 50 mg 1, iron 325 mg 1, Glucophage 500 mg 1, Clonopin 0.5 mg 1, Norvasc 10 mg 1, Cozaar 100 mg 1, aspirin 81 mg 1, and Lexapro 20 mg 1. Patient states he is doing well. Denies pain and discomfort. Denies SOB/ dyspnea. Denies chest pain, palpitations, headaches, dizziness. Denies fevers, chills, n/v/d. Objective Vitals Vital Signs Date Time Temp Pulse Resp B/P Pulse Ox O2 Delivery O2 Flow Rate FiO2 12/03/16 06:09 97.4 62 18 103/56 99 12/02/16 18:33 97.7 76 18 109/66 97 I/O 12/02/16 12/02/16 12/02/16 12/03/16 12/03/16 12/03/16 07:00 15:00 23:00 07:00 15:00 23:00 Intake Total 0 ml 960 ml 2040 ml 1440 ml Balance 0 ml 960 ml 2040 ml 1440 ml Intake Oral 0 ml 960 ml 2040 ml 1440 ml # Voids 5 2 3 2 # Bowel Movements 0 Objective Remarks GENERAL: This is a confused, well-developed patient, in no apparent distress. HEENT: Normocephalic. Pupils equal round and reactive. Nose without bleeding. Airway patent. NECK: Trachea midline. No JVD. Supple. CARDIOVASCULAR: Regular rate and rhythm without murmurs, gallops, or rubs. RESPIRATORY: Clear to auscultation. Breath sounds equal bilaterally. No wheezes , rales, or rhonchi. GASTROINTESTINAL: Abdomen soft, non-tender, nondistended. Bowel Sounds normoactive x4. MUSCULOSKELETAL: Extremities without clubbing, cyanosis, or edema. NEUROLOGICAL: Awake and alert. Confuse No focal neuro deficit. [place]. Normal speech. A/P Problem List: (1) HLD (hyperlipidemia) ICD Code: E78.5 Status: Chronic (2) DM (diabetes mellitus) ICD Code: E11.9 Status: Chronic (3) HTN (hypertension) ICD Code: I10 Status: Chronic (4) GERD (gastroesophageal reflux disease) ICD Code: K21.9 Status: Chronic (5) Anemia ICD Code: D64.9 Status: Chronic (6) A-fib ICD Code: I48.91 Status: Chronic (7) Dementia ICD Code: F03.90 Status: Chronic (8) COPD (chronic obstructive pulmonary disease) ICD Code: J44.9 Status: Chronic Assessment and Plan This is a 66-year-old male patient with past medical history which includes dementia,schizophrenia, atrial fibrillation, diabetes mellitus, hypertension hyperlipidemia Patient previously seen in the hospital last admission was with urinary tract infection treated with ciprofloxacin. Currently Admitted to inpatient psychiatry. We were consulted for urinary tract infection culture positive for Klebsiella pneumonia Consulted for medical management. Schizophrenia, disorganized thought and intermittent aggressive behavior - managed by psychiatry team Medications administered in error: Patient inadvertently received medications ordered for a different patient. These include BuSpar 10 mg 1, Seroquel 50 mg 1, iron 325 mg 1, Glucophage 500 mg 1, Clonopin 0.5 mg 1, Norvasc 10 mg 1, Cozaar 100 mg 1, aspirin 81 mg 1, and Lexapro 20 mg 1. - Currently appear to be asymptomatic. Most concerning is to ensure his blood pressure remain stable. It is currently stable. Will encourage oral fluid intake. - Patient has been stable. History of atrial fibrillation - continue aspirin daily. Rate controlled without medications. DM 2 - continue metformin 500 mg twice a day. - Latest hemoglobin A1c 11/02/16 6.4 HTN, history -controlled with no medications. -See discussion above regarding medication error. UTI culture positive for Klebsiella pneumonia: Currently being treated with Bactrim, end date 12/11/16 DVT prop ambulatory Discussed with patient and nursing Stable from Hospitalist standpoint. We will sign off. Reconsult as needed. Written by Dennis Dorsey, acting as scribe for Dr. Daly on 12/03/16 at 13: 55. Attending Statement All or portions of this note were transcribed by jesúsibcliff Dorsey. I, Dr. Alex Jimenez personally performed the history, physical exam, and medical decision making; and confirmed the accuracy of the information in the transcribed note. Authenticated by Dr. Alex Jimenez on 12/11/16 at 20:29. Dennis Gregorio Dec 03, 2016 15:12 Alex Nguyen MD Dec 11, 2016 20:29
[2016-12-03 18:00] VITALS: BP 98/55; PULSE 75; RESP 17; TEMP 96.6; O2SAT 99
[2016-12-03] MEDS: LITHIUM CARBONATE 450 MG CONTROLLED RELEASE TAB PO SCH (20:06)
[2016-12-03] MEDS: ATORVASTATIN 40 MG TAB PO SCH (20:07)
[2016-12-04 05:39] VITALS: BP 94/56; PULSE 63; RESP 17; TEMP 98.5; O2SAT 98
[2016-12-04] MEDS: metFORMIN HCL 500 MG TAB PO SCH ×2 (09:07→17:13)
[2016-12-04] MEDS: PANTOPRAZOLE SOD 40 MG DELAYED RELEASE TAB PO SCH (09:08)
[2016-12-04] MEDS: ASPIRIN 325 MG TAB PO SCH (09:08)
[2016-12-04] MEDS: SULFAMETHOXAZOLE-TRIMETHOPRIM DS 800-160 MG TAB PO SCH ×2 (09:08→20:32)
[2016-12-04] MEDS: BENZTROPINE MESYLATE 2 MG TAB PO SCH (09:09)
[2016-12-04] MEDS: LITHIUM CARBONATE 450 MG CONTROLLED RELEASE TAB PO SCH ×2 (09:09→21:04)
[2016-12-04] MEDS: ARIPiprazole 30 MG TAB PO SCH (09:10)
--- NOTE | 2016-12-04 12:48 | HHI.PYPN ---
Subjective Remarks Patient seen in day room with nurse and family practice resident Alex, patient somewhat more irritable with me today also being critical of his lunch plate. Is compliant with medications. He did call me "asshole". Review of Systems Except as stated in HPI: all other systems reviewed are Neg Psychiatric: COMPLAINS OF: Agitation (angry her today) Objective Alert: Yes [place]: Person, Place Mood: Angry (today), Calm (today) Affect: Labile (today), Blunted Memory Intact: Comment Hallucinations: Other (denies work responding to internal stimuli) Delusions: Yes Delusion Type: Paranoid (improving) Suicidal: Ideation (denies) Homicidal: Ideation (deny) Insight/Judgement Very poor Vitals/IOs Vital Signs Date Time Temp Pulse Resp B/P Pulse Ox O2 Delivery O2 Flow Rate FiO2 12/04/16 05:39 98.5 63 17 94/56 98 Intake and Output 12/03/16 12/03/16 12/04/16 08:00 16:00 00:00 Intake Total 480 ml 960 ml 960 ml Balance 480 ml 960 ml 960 ml Assessment & Plan Problem List: (1) Schizoaffective disorder, bipolar type ICD Code: F25.0 Assessment & Plan Estimated LOS: days patient remained psychotic somewhat paranoid, more evident today. Compliant medications. Justification for Cont. Inpt. At this time patient would significantly decompensate if placed in the lower level of care Discharge Planning To be determined Request HC Surrog/Guard Advoc?: No Ravi Fleming MD Dec 04, 2016 12:48
[2016-12-04 19:01] VITALS: BP 106/58; PULSE 75; RESP 18; TEMP 97.6; O2SAT 97
[2016-12-04] MEDS: ATORVASTATIN 40 MG TAB PO SCH (20:33)
[2016-12-05 05:57] VITALS: BP 119/65; PULSE 72; RESP 19; TEMP 97.8
[2016-12-05] MEDS: SULFAMETHOXAZOLE-TRIMETHOPRIM DS 800-160 MG TAB PO SCH ×2 (08:59→21:03)
[2016-12-05] MEDS: ARIPiprazole 30 MG TAB PO SCH (08:59)
[2016-12-05] MEDS: metFORMIN HCL 500 MG TAB PO SCH ×2 (08:59→17:44)
[2016-12-05] MEDS: BENZTROPINE MESYLATE 2 MG TAB PO SCH (08:59)
[2016-12-05] MEDS: ASPIRIN 325 MG TAB PO SCH (08:59)
[2016-12-05] MEDS: PANTOPRAZOLE SOD 40 MG DELAYED RELEASE TAB PO SCH (08:59)
[2016-12-05] MEDS: LITHIUM CARBONATE 450 MG CONTROLLED RELEASE TAB PO SCH ×2 (09:00→21:03)
--- NOTE | 2016-12-05 10:22 | HHI.PYPN ---
Subjective Remarks Patient seen in room with nurse Enrique, patient in bed irritable, covers up to his chin, making no eye contact with me stating he did not wish to talk with me. He is compliant with medications. Tegretol level on 12/05 is 5.6 on a dose of 100 mg twice a day will increase to 100 mg a.m. 200 mg at bedtime and recheck level Review of Systems Except as stated in HPI: all other systems reviewed are Neg Objective Alert: Yes [place]: Person, Place Mood: Angry (today), Calm (today) Affect: Labile (today), Blunted Memory Intact: Comment Hallucinations: Other (denies work responding to internal stimuli) Delusions: Yes Delusion Type: Paranoid (improving) Suicidal: Ideation (denies) Homicidal: Ideation (deny) Insight/Judgement Very poor Labs Test 12/05/16 07:05 Carbamazepine (Tegretol) Level 5.6 MCG/ML Vitals/IOs Vital Signs Date Time Temp Pulse Resp B/P Pulse Ox O2 Delivery O2 Flow Rate FiO2 12/05/16 05:57 97.8 72 19 119/65 12/04/16 19:01 97 Intake and Output 12/04/16 12/04/16 12/05/16 08:00 16:00 00:00 Intake Total 720 ml 720 ml 720 ml Output Total 1 ml Balance 719 ml 720 ml 720 ml Assessment & Plan Problem List: (1) Schizoaffective disorder, bipolar type ICD Code: F25.0 Assessment & Plan Estimated LOS: days patient remains irritable somewhat paranoid, and isolating. Tegretol level 5.6 on 100 mg twice a day, will increase to 100 mg a.m. 20 mg at bedtime and recheck level Justification for Cont. Inpt. At this time patient will decompensate placed in a lower level of care Discharge Planning To be determined Request HC Surrog/Guard Advoc?: No Ravi Fleming MD Dec 05, 2016 10:22
[2016-12-05 18:37] VITALS: BP 102/62; PULSE 73; RESP 18; TEMP 97.8; O2SAT 97
[2016-12-05] MEDS: ATORVASTATIN 40 MG TAB PO SCH (21:03)
[2016-12-06 05:17] VITALS: BP 129/69; PULSE 74; RESP 18; TEMP 97.6; O2SAT 96
[2016-12-06] MEDS: BENZTROPINE MESYLATE 2 MG TAB PO SCH (08:21)
[2016-12-06] MEDS: SULFAMETHOXAZOLE-TRIMETHOPRIM DS 800-160 MG TAB PO SCH ×2 (08:21→20:56)
[2016-12-06] MEDS: ASPIRIN 325 MG TAB PO SCH (08:22)
[2016-12-06] MEDS: PANTOPRAZOLE SOD 40 MG DELAYED RELEASE TAB PO SCH (08:22)
[2016-12-06] MEDS: LITHIUM CARBONATE 450 MG CONTROLLED RELEASE TAB PO SCH ×2 (08:22→20:56)
[2016-12-06] MEDS: metFORMIN HCL 500 MG TAB PO SCH ×2 (08:22→18:18)
[2016-12-06] MEDS: ARIPiprazole 30 MG TAB PO SCH (08:23)
--- NOTE | 2016-12-06 10:20 | HHI.PYPN ---
Subjective Remarks Patient seen in day room with nurse Nunez. Chart reviewed. Patient compliant medications. Will be getting lithium level and Tegretol level of the next few days. Patient seen in in dayroom initially sitting with blanket over his head. Did remove that as we are talking somewhat loud irritable angry demanding a cigarette I hamburger and a cup of coffee sad and allow demanding voice with a little profanity also present, though able to be calmed verbally Review of Systems Except as stated in HPI: all other systems reviewed are Neg Objective Alert: Yes [place]: Person, Place Mood: Angry (today), Calm (somewhat more irritable today) Affect: Labile (today), Blunted Memory Intact: Comment Hallucinations: Other (denies work responding to internal stimuli) Delusions: Yes Delusion Type: Paranoid (improving) Suicidal: Ideation (denies) Homicidal: Ideation (deny) Insight/Judgement Very poor Vitals/IOs Vital Signs Date Time Temp Pulse Resp B/P Pulse Ox O2 Delivery O2 Flow Rate FiO2 12/06/16 05:17 97.6 74 18 129/69 96 Intake and Output 12/05/16 12/05/16 12/06/16 08:00 16:00 00:00 Intake Total 1080 ml Balance 1080 ml Assessment & Plan Problem List: (1) Schizoaffective disorder, bipolar type ICD Code: F25.0 Assessment & Plan Estimated LOS: days patient somewhat more psychotic and paranoid today increased lability and profanity. Patient compliant medications. Awaiting both lithium and Tegretol blood levels Justification for Cont. Inpt. At this time patient would decompensate if placed in a lower level of care Discharge Planning To be determined Request HC Surrog/Guard Advoc?: No Ravi Fleming MD Dec 06, 2016 10:20
[2016-12-06 18:33] VITALS: BP 99/55; PULSE 66; RESP 16; TEMP 99.2; O2SAT 97
[2016-12-06] MEDS: ATORVASTATIN 40 MG TAB PO SCH (20:56)
[2016-12-07 05:53] VITALS: BP 109/52; PULSE 65; RESP 17; TEMP 99.3; O2SAT 95
[2016-12-07] MEDS: ARIPiprazole 30 MG TAB PO SCH (09:00)
[2016-12-07] MEDS: SULFAMETHOXAZOLE-TRIMETHOPRIM DS 800-160 MG TAB PO SCH ×2 (09:19→20:36)
[2016-12-07] MEDS: BENZTROPINE MESYLATE 2 MG TAB PO SCH (09:20)
[2016-12-07] MEDS: metFORMIN HCL 500 MG TAB PO SCH ×2 (09:20→17:37)
[2016-12-07] MEDS: PANTOPRAZOLE SOD 40 MG DELAYED RELEASE TAB PO SCH (09:20)
[2016-12-07] MEDS: ASPIRIN 325 MG TAB PO SCH (09:20)
[2016-12-07] MEDS: LITHIUM CARBONATE 450 MG CONTROLLED RELEASE TAB PO SCH ×2 (09:21→20:36)
--- NOTE | 2016-12-07 13:39 | HHI.PYPN ---
Subjective Remarks Pt seen and discussed with staff. He has been calm and cooperative with care and staff report that agitation has decreased overall and he is less impulsive and intrusive. Pt states that he is feeling happy today. No SI/HI. No medication side effects. Objective Alert: Yes [place]: Person, Place Mood: Happy Affect: Restricted Memory Intact: Comment (fair) Hallucinations: Other (denies work responding to internal stimuli) Delusions: No Delusion Type: Other (none) Suicidal: Ideation (denies) Homicidal: Ideation (deny) Insight/Judgement limited Labs Test 12/07/16 06:48 [place] Level 1.4 MEQ/L Vitals/IOs Vital Signs Date Time Temp Pulse Resp B/P Pulse Ox O2 Delivery O2 Flow Rate FiO2 12/07/16 05:53 99.3 65 17 109/52 95 Intake and Output 12/06/16 12/06/16 12/07/16 08:00 16:00 00:00 Intake Total 280 ml 1680 ml Balance 280 ml 1680 ml Assessment & Plan Problem List: (1) Schizoaffective disorder, bipolar type ICD Code: F25.0 Assessment & Plan Pt is improving. Continue current tx plan. Estimated LOS: days Justification for Cont. Inpt. risk of decompensation in less restrictive setting at this time Request HC Surrog/Guard Advoc?: Sidra Mcfadden MD Dec 07, 2016 13:39
[2016-12-07 17:59] VITALS: BP 97/54; PULSE 60; RESP 18; TEMP 99.1; O2SAT 95
[2016-12-07] MEDS: ATORVASTATIN 40 MG TAB PO SCH (20:36)
[2016-12-08 06:00] VITALS: BP 133/75; PULSE 60; RESP 17; TEMP 97.5; O2SAT 96
[2016-12-08] MEDS: PANTOPRAZOLE SOD 40 MG DELAYED RELEASE TAB PO SCH (08:32)
[2016-12-08] MEDS: BENZTROPINE MESYLATE 2 MG TAB PO SCH (08:32)
[2016-12-08] MEDS: SULFAMETHOXAZOLE-TRIMETHOPRIM DS 800-160 MG TAB PO SCH ×2 (08:32→20:20)
[2016-12-08] MEDS: metFORMIN HCL 500 MG TAB PO SCH ×2 (08:32→18:00)
[2016-12-08] MEDS: ASPIRIN 325 MG TAB PO SCH (08:32)
[2016-12-08] MEDS: LITHIUM CARBONATE 450 MG CONTROLLED RELEASE TAB PO SCH ×2 (08:33→20:20)
[2016-12-08] MEDS: ARIPiprazole 30 MG TAB PO SCH (08:33)
--- NOTE | 2016-12-08 14:36 | HHI.PYPN ---
Subjective Remarks Pt seen and discussed with staff. Pt has been compliant with medications and care. No outbursts or agitation.Mood is euthymic. No SI/HI. No medication side effects. Objective Alert: Yes [place]: Person, Place Mood: Happy Affect: Euthymic Memory Intact: Comment (fair) Hallucinations: Other (denies work responding to internal stimuli) Delusions: No Delusion Type: Other (none) Suicidal: Ideation (denies) Homicidal: Ideation (deny) Insight/Judgement limited Labs Test 12/08/16 07:05 Carbamazepine (Tegretol) Level 6.9 MCG/ML Vitals/IOs Vital Signs Date Time Temp Pulse Resp B/P Pulse Ox O2 Delivery O2 Flow Rate FiO2 12/08/16 06:00 97.5 60 17 133/75 96 Intake and Output 12/07/16 12/07/16 12/08/16 08:00 16:00 00:00 Intake Total 720 ml 2040 ml Balance 720 ml 2040 ml Assessment & Plan Problem List: (1) Schizoaffective disorder, bipolar type ICD Code: F25.0 Assessment & Plan Continue current tx plan. Estimated LOS: days Justification for Cont. Inpt. risk of decompensation Request HC Surrog/Guard Advoc?: Sidra Mcfadden MD Dec 08, 2016 14:36
[2016-12-08 18:12] VITALS: BP 123/61; PULSE 58; RESP 16; TEMP 97.7; O2SAT 99
[2016-12-08] MEDS: ATORVASTATIN 40 MG TAB PO SCH (20:20)
[2016-12-09 05:42] VITALS: BP 95/52; PULSE 58; RESP 16; TEMP 97.1; O2SAT 100
[2016-12-09] MEDS: ARIPiprazole 30 MG TAB PO SCH (09:00)
[2016-12-09] MEDS: BENZTROPINE MESYLATE 2 MG TAB PO SCH (09:27)
[2016-12-09] MEDS: LITHIUM CARBONATE 450 MG CONTROLLED RELEASE TAB PO SCH ×2 (09:27→20:38)
[2016-12-09] MEDS: PANTOPRAZOLE SOD 40 MG DELAYED RELEASE TAB PO SCH (09:27)
[2016-12-09] MEDS: SULFAMETHOXAZOLE-TRIMETHOPRIM DS 800-160 MG TAB PO SCH ×2 (09:28→20:38)
[2016-12-09] MEDS: ASPIRIN 325 MG TAB PO SCH (09:28)
[2016-12-09] MEDS: metFORMIN HCL 500 MG TAB PO SCH ×2 (09:28→17:52)
--- NOTE | 2016-12-09 15:03 | HHI.PYPN ---
Subjective Remarks Patient discussed with treatment team, patient seen on unit. Patient somewhat calmer today but still intrusive. [place] level drawn on 12/07 is 1.4, Tegretol level drawn on 12/08 is 6.9. Will recheck lithium level tomorrow, will increase Tegretol to 200 mg twice a day and check level in 3 days patient does not seem to be of the same management issue over the past few days. Review of Systems Except as stated in HPI: all other systems reviewed are Neg Objective Alert: Yes [place]: Person, Place Mood: Calm, Other (somewhat restricted) Affect: Euthymic Memory Intact: Comment (fair) Hallucinations: Other (denies work responding to internal stimuli) Delusions: No Delusion Type: Other (none) Suicidal: Ideation (denies) Homicidal: Ideation (deny) Insight/Judgement Poor Vitals/IOs Vital Signs Date Time Temp Pulse Resp B/P Pulse Ox O2 Delivery O2 Flow Rate FiO2 12/09/16 05:42 97.1 58 16 95/52 100 Intake and Output 12/08/16 12/08/16 12/09/16 08:00 16:00 00:00 Intake Total 1040 ml 720 ml Balance 1040 ml 720 ml Assessment & Plan Problem List: (1) Schizoaffective disorder, bipolar type ICD Code: F25.0 Assessment & Plan Estimated LOS: days patient continues somewhat intrusive and vigilant though softer than prior, compliant medications, see medication adjustments above Justification for Cont. Inpt. At this time patient will decompensate and placed on the lower level of care Discharge Planning To be determined Request HC Surrog/Guard Advoc?: Ravi Mcrae MD Dec 09, 2016 15:03
[2016-12-09 18:45] VITALS: BP 103/59; PULSE 58; RESP 16; TEMP 98.3; O2SAT 97
[2016-12-09] MEDS: ATORVASTATIN 40 MG TAB PO SCH (20:38)
[2016-12-10 06:04] VITALS: BP 126/66; PULSE 58; RESP 18; TEMP 97.9; O2SAT 97
[2016-12-10] MEDS: ARIPiprazole 30 MG TAB PO SCH (09:00)
[2016-12-10] MEDS: ASPIRIN 325 MG TAB PO SCH (09:04)
[2016-12-10] MEDS: metFORMIN HCL 500 MG TAB PO SCH ×2 (09:05→18:10)
[2016-12-10] MEDS: PANTOPRAZOLE SOD 40 MG DELAYED RELEASE TAB PO SCH (09:05)
[2016-12-10] MEDS: LITHIUM CARBONATE 450 MG CONTROLLED RELEASE TAB PO SCH ×2 (09:05→21:27)
[2016-12-10] MEDS: SULFAMETHOXAZOLE-TRIMETHOPRIM DS 800-160 MG TAB PO SCH ×2 (09:05→21:28)
[2016-12-10] MEDS: BENZTROPINE MESYLATE 2 MG TAB PO SCH (09:05)
--- NOTE | 2016-12-10 09:17 | HHI.PYPN ---
Subjective Remarks Patient seen in his room with nurse Enrique, patient calm today is isolating somewhat. It appears I forgot and to the medication changes I was discussing yesterday. Does have done that this morning, increasing the Tegretol to 20 mg twice a day with getting a blood level on 12/14. We'll get the lithium blood level drawn tomorrow morning. Patient no behavior problems at this time. Patient still states he wishes to return to [facility] Review of Systems Except as stated in HPI: all other systems reviewed are Neg Objective Alert: Yes [place]: Person, Place Mood: Calm, Other (somewhat restricted) Affect: Euthymic Memory Intact: Comment (fair) Hallucinations: Other (denies work responding to internal stimuli) Delusions: No Delusion Type: Other (none) Suicidal: Ideation (denies) Homicidal: Ideation (deny) Insight/Judgement Very poor Vitals/IOs Vital Signs Date Time Temp Pulse Resp B/P Pulse Ox O2 Delivery O2 Flow Rate FiO2 12/10/16 06:04 97.9 58 18 126/66 97 Intake and Output 12/09/16 12/09/16 12/10/16 08:00 16:00 00:00 Intake Total 1320 ml Balance 1320 ml Assessment & Plan Problem List: (1) Schizoaffective disorder, bipolar type ICD Code: F25.0 Assessment & Plan Estimated LOS: days patient continues somewhat confused though behaviors calm this morning. Patient compliant medications. For now continue treatment Justification for Cont. Inpt. At this time patient will decompensate if placed in the lower level of care Discharge Planning To be determined Request HC Surrog/Guard Advoc?: No Ravi Fleming MD Dec 10, 2016 09:16
[2016-12-10 20:14] VITALS: BP 95/61; PULSE 67; RESP 18; TEMP 98.1; O2SAT 97
[2016-12-10] MEDS: ATORVASTATIN 40 MG TAB PO SCH (21:28)
[2016-12-11 05:50] VITALS: BP 139/67; PULSE 59; RESP 16; TEMP 97.4; O2SAT 95
[2016-12-11] MEDS: ARIPiprazole 30 MG TAB PO SCH (09:00)
[2016-12-11] MEDS: BENZTROPINE MESYLATE 2 MG TAB PO SCH (09:56)
[2016-12-11] MEDS: metFORMIN HCL 500 MG TAB PO SCH ×2 (09:56→17:49)
[2016-12-11] MEDS: SULFAMETHOXAZOLE-TRIMETHOPRIM DS 800-160 MG TAB PO SCH (09:57)
[2016-12-11] MEDS: LITHIUM CARBONATE 450 MG CONTROLLED RELEASE TAB PO SCH (09:57)
[2016-12-11] MEDS: ASPIRIN 325 MG TAB PO SCH (09:57)
[2016-12-11] MEDS: PANTOPRAZOLE SOD 40 MG DELAYED RELEASE TAB PO SCH (09:57)
--- NOTE | 2016-12-11 11:52 | HHI.PYPN ---
Subjective Remarks Patient discussed with treatment team including medication diagnosis treatment plans discharged recommendations, chart review, patient seen on unit. Patient somewhat quieter today sitting the corner of the day room somewhat irritable with me though overall cooperative. Compliant medications. [place] level I.6 drawn this a.m. on 450 mg twice a day of lithium. Will decrease to 300 mg 3 times a day and recheck level Review of Systems Except as stated in HPI: all other systems reviewed are Neg Objective Alert: Yes [place]: Person, Place Mood: Calm, Depressed (mildly), Other (somewhat restricted) Affect: Euthymic (to somewhat restricted) Memory Intact: Comment (fair) Hallucinations: Other (denies work responding to internal stimuli) Delusions: No Delusion Type: Other (none) Suicidal: Ideation (denies) Homicidal: Ideation (deny) Insight/Judgement Very poor Labs Test 12/11/16 06:10 [place] Level 1.6 MEQ/L Vitals/IOs Vital Signs Date Time Temp Pulse Resp B/P Pulse Ox O2 Delivery O2 Flow Rate FiO2 12/11/16 05:50 97.4 59 16 139/67 95 Intake and Output 12/10/16 12/10/16 12/11/16 08:00 16:00 00:00 Intake Total 2 ml 530 ml Balance 2 ml 530 ml Assessment & Plan Problem List: (1) Schizoaffective disorder, bipolar type ICD Code: F25.0 Assessment & Plan Estimated LOS: days patient somewhat restricted today sad face today, compliant medications. [place] level continues to remain somewhat elevated at 1.6 will decrease daily dose from 900 mg daily to 600 mg daily and recheck level Justification for Cont. Inpt. At this time patient will decompensate if placed on the lower level of care Discharge Planning To be determined Request HC Surrog/Guard Advoc?: No Ravi Fleming MD Dec 11, 2016 11:52
[2016-12-11 19:52] VITALS: BP 109/56; PULSE 65; RESP 18; TEMP 98; O2SAT 94
[2016-12-11] MEDS: ATORVASTATIN 40 MG TAB PO SCH (20:47)
[2016-12-11] MEDS: LITHIUM CARBONATE 300 MG SLOW RELEASE TAB PO SCH (20:47)
[2016-12-12 05:21] VITALS: BP 108/60; PULSE 62; RESP 16; TEMP 97.6; O2SAT 94
[2016-12-12] MEDS: ARIPiprazole 30 MG TAB PO SCH (08:44)
[2016-12-12] MEDS: metFORMIN HCL 500 MG TAB PO SCH ×2 (08:44→17:28)
[2016-12-12] MEDS: PANTOPRAZOLE SOD 40 MG DELAYED RELEASE TAB PO SCH (08:46)
[2016-12-12] MEDS: BENZTROPINE MESYLATE 2 MG TAB PO SCH (08:46)
[2016-12-12] MEDS: LITHIUM CARBONATE 300 MG SLOW RELEASE TAB PO SCH ×2 (08:46→22:00)
[2016-12-12] MEDS: ASPIRIN 325 MG TAB PO SCH (08:47)
--- NOTE | 2016-12-12 11:18 | HHI.PYPN ---
Subjective Remarks Patient seen in his room with nurse Fernanda. Patient calm more cooperative continues to wish to return to [facility]. It appears he is slowly reaching her baseline will consider having [facility] staff come and assess the patient to see if they're willing to have him return to that facility. Patient compliant medications. Tegretol level scheduled for 12/13 and lithium level scheduled for 12/15. Patient's arousal irritability appears to be somewhat softer at this time Review of Systems Except as stated in HPI: all other systems reviewed are Neg Objective Alert: Yes [place]: Person, Place Mood: Calm, Depressed (mildly), Other (somewhat restricted) Affect: Euthymic (to somewhat restricted) Memory Intact: Comment (fair) Hallucinations: Other (denies work responding to internal stimuli) Delusions: No Delusion Type: Other (none) Suicidal: Ideation (denies) Homicidal: Ideation (deny) Insight/Judgement Poor Vitals/IOs Vital Signs Date Time Temp Pulse Resp B/P Pulse Ox O2 Delivery O2 Flow Rate FiO2 12/12/16 05:21 97.6 62 16 108/60 94 Intake and Output 12/11/16 12/11/16 12/12/16 08:00 16:00 00:00 Intake Total 720 ml Balance 720 ml Assessment & Plan Problem List: (1) Schizoaffective disorder, bipolar type ICD Code: F25.0 Assessment & Plan Estimated LOS: days patient continues to isolate. He is compliant medications. His arousal and irritability appears to be softening somewhat. Will consider having staff from [facility] [place] come and assess patient Justification for Cont. Inpt. At this time patient will decompensate and placed in the lower level of care Discharge Planning To be determined Request HC Surrog/Guard Advoc?: Ravi Mcrae MD Dec 12, 2016 11:18
[2016-12-12 18:00] VITALS: BP 142/64; PULSE 67; RESP 17; TEMP 98; O2SAT 98
[2016-12-12] MEDS: ATORVASTATIN 40 MG TAB PO SCH (22:00)
[2016-12-13 05:58] VITALS: BP 112/64; PULSE 62; RESP 18; TEMP 98.2
[2016-12-13] MEDS: ARIPiprazole 30 MG TAB PO SCH (10:20)
[2016-12-13] MEDS: metFORMIN HCL 500 MG TAB PO SCH ×2 (10:20→17:32)
[2016-12-13] MEDS: BENZTROPINE MESYLATE 2 MG TAB PO SCH (10:21)
[2016-12-13] MEDS: LITHIUM CARBONATE 300 MG SLOW RELEASE TAB PO SCH ×2 (10:21→21:00)
[2016-12-13] MEDS: PANTOPRAZOLE SOD 40 MG DELAYED RELEASE TAB PO SCH (10:21)
[2016-12-13] MEDS: ASPIRIN 325 MG TAB PO SCH (10:21)
--- NOTE | 2016-12-13 14:42 | HHI.PYPN ---
Subjective Remarks Patient seen in the day room, patient sitting at table eating ice cream Friday, he continues calm at times the but irritable did call me Dr. Fleming today. Compliant medications. Patient showing no significant behavioral problems recently Review of Systems Except as stated in HPI: all other systems reviewed are Neg Objective Alert: Yes [place]: Person, Place Mood: Calm, Depressed (mildly), Other (somewhat restricted) Affect: Euthymic (to somewhat restricted) Memory Intact: Comment (fair) Hallucinations: Other (denies work responding to internal stimuli) Delusions: No Delusion Type: Other (none) Suicidal: Ideation (denies) Homicidal: Ideation (deny) Insight/Judgement Very poor Labs Test 12/13/16 07:35 Carbamazepine (Tegretol) Level 8.0 MCG/ML Vitals/IOs Vital Signs Date Time Temp Pulse Resp B/P Pulse Ox O2 Delivery O2 Flow Rate FiO2 12/13/16 05:58 98.2 62 18 112/64 12/12/16 18:00 98 Intake and Output 12/12/16 12/12/16 12/13/16 08:00 16:00 00:00 Intake Total 360 ml 840 ml 960 ml Balance 360 ml 840 ml 960 ml Assessment & Plan Problem List: (1) Schizoaffective disorder, bipolar type ICD Code: F25.0 Assessment & Plan Estimated LOS: days patient somewhat calmer today, less irritating today continues to be enjoying his ice cream social. Compliant medications. For now continue treatment Justification for Cont. Inpt. At this time patient will decompensate if placed in a lower level of care Discharge Planning To be determined Request HC Surrog/Guard Advoc?: No Ravi Fleming MD Dec 13, 2016 14:42
[2016-12-13 18:00] VITALS: BP 128/58; PULSE 64; RESP 18; TEMP 98.8; O2SAT 97
[2016-12-13] MEDS: ATORVASTATIN 40 MG TAB PO SCH (21:49)
[2016-12-14 04:56] VITALS: BP 108/56; PULSE 60; RESP 16; TEMP 98.2; O2SAT 98
[2016-12-14] MEDS: LITHIUM CARBONATE 300 MG SLOW RELEASE TAB PO SCH ×3 (09:00→21:14)
[2016-12-14] MEDS: ARIPiprazole 30 MG TAB PO SCH (09:23)
[2016-12-14] MEDS: metFORMIN HCL 500 MG TAB PO SCH ×2 (09:23→17:46)
[2016-12-14] MEDS: PANTOPRAZOLE SOD 40 MG DELAYED RELEASE TAB PO SCH (09:24)
[2016-12-14] MEDS: ASPIRIN 325 MG TAB PO SCH (09:24)
[2016-12-14] MEDS: BENZTROPINE MESYLATE 2 MG TAB PO SCH (09:24)
--- NOTE | 2016-12-14 12:28 | HHI.PYPN ---
Subjective Remarks Patient was seen and case discussed with nursing. Patient is pleasant and cooperative with exam. His behaving well on the unit. Compliant with medications. Easily engaged during the interview. No inappropriate comments today. Describes his mood as "good." Objective Alert: Yes [place]: Person, Place, Situation Mood: Calm, Other (somewhat restricted) Affect: Euthymic (to somewhat restricted), Blunted Memory Intact: Comment (fair) Hallucinations: Other (denies work responding to internal stimuli) Delusions: No Delusion Type: Other (none) Suicidal: Ideation (denies) Homicidal: Ideation (deny) Insight/Judgement Poor Vitals/IOs Vital Signs Date Time Temp Pulse Resp B/P Pulse Ox O2 Delivery O2 Flow Rate FiO2 12/14/16 04:56 98.2 60 16 108/56 98 Intake and Output 12/13/16 12/13/16 12/14/16 08:00 16:00 00:00 Intake Total 720 ml 360 ml Balance 720 ml 360 ml Assessment & Plan Problem List: (1) Schizoaffective disorder, bipolar type ICD Code: F25.0 Assessment & Plan Continue current treatment plan Justification for Cont. Inpt. Patient will decompensate in a less restrictive setting Request HC Surrog/Guard Advoc?: No Rito Ramos DO Dec 14, 2016 12:28
[2016-12-14 18:36] VITALS: BP 118/61; PULSE 62; RESP 16; TEMP 96.4; O2SAT 94
[2016-12-14] MEDS: ATORVASTATIN 40 MG TAB PO SCH (21:14)
[2016-12-15 06:27] VITALS: BP 124/69; PULSE 79; RESP 16; TEMP 97.6; O2SAT 96
[2016-12-15] MEDS: PANTOPRAZOLE SOD 40 MG DELAYED RELEASE TAB PO SCH (08:55)
[2016-12-15] MEDS: ASPIRIN 325 MG TAB PO SCH (08:55)
[2016-12-15] MEDS: BENZTROPINE MESYLATE 2 MG TAB PO SCH (08:55)
[2016-12-15] MEDS: ARIPiprazole 30 MG TAB PO SCH (08:55)
[2016-12-15] MEDS: metFORMIN HCL 500 MG TAB PO SCH ×2 (08:56→18:19)
[2016-12-15] MEDS: LITHIUM CARBONATE 300 MG SLOW RELEASE TAB PO SCH ×2 (08:56→21:46)
--- NOTE | 2016-12-15 11:13 | HHI.PYPN ---
Subjective Remarks Patient was seen and case discussed with nursing. Patient is pleasant and cooperative with exam. Per nursing quiet and seclusive to room. Continues to deny psychotic symptoms. Asking about [facility]. Compliant with medications Objective Alert: Yes [place]: Person, Place, Situation Mood: Calm Affect: Euthymic (to somewhat restricted), Restricted Memory Intact: Comment (not tested) Hallucinations: Other (denies) Delusions: No Delusion Type: Other (none) Suicidal: Ideation (denies) Homicidal: Ideation (deny) Insight/Judgement Poor Labs Test 12/15/16 06:30 [place] Level 0.9 MEQ/L Vitals/IOs Vital Signs Date Time Temp Pulse Resp B/P Pulse Ox O2 Delivery O2 Flow Rate FiO2 12/15/16 06:27 97.6 79 16 124/69 96 Intake and Output 12/14/16 12/14/16 12/15/16 08:00 16:00 00:00 Intake Total 360 ml 840 ml 840 ml Balance 360 ml 840 ml 840 ml Assessment & Plan Problem List: (1) Schizoaffective disorder, bipolar type ICD Code: F25.0 Assessment & Plan Continue current treatment plan Justification for Cont. Inpt. Patient will decompensate in a less restrictive setting Request HC Surrog/Guard Advoc?: No Rito Ramos DO Dec 15, 2016 11:13
[2016-12-15 18:55] VITALS: BP 107/64; PULSE 57; RESP 15; TEMP 98.1; O2SAT 98
[2016-12-15] MEDS: ATORVASTATIN 40 MG TAB PO SCH (21:46)
[2016-12-16 05:41] VITALS: BP 120/61; PULSE 71; RESP 18; TEMP 98.4; O2SAT 97
[2016-12-16] MEDS: metFORMIN HCL 500 MG TAB PO SCH ×2 (08:57→17:21)
[2016-12-16] MEDS: BENZTROPINE MESYLATE 2 MG TAB PO SCH (08:57)
[2016-12-16] MEDS: PANTOPRAZOLE SOD 40 MG DELAYED RELEASE TAB PO SCH (08:57)
[2016-12-16] MEDS: ARIPiprazole 30 MG TAB PO SCH (08:57)
[2016-12-16] MEDS: LITHIUM CARBONATE 300 MG SLOW RELEASE TAB PO SCH ×2 (08:57→21:06)
[2016-12-16] MEDS: ASPIRIN 325 MG TAB PO SCH (08:57)
--- NOTE | 2016-12-16 15:53 | HHI.PYPN ---
Subjective Remarks Patient discussed with treatment team, chart reviewed, patient seen on unit, patient continues somewhat loud and intrusive no continues to focus on wanting to be returned to [facility]. Staff will [facility] did visit with patient feel he is not quite ready yet. Patient compliant medications. For now continue treatment Review of Systems Except as stated in HPI: all other systems reviewed are Neg Objective Alert: Yes [place]: Person, Place, Situation Mood: Calm Affect: Euthymic (to somewhat restricted), Restricted Memory Intact: Comment (not tested) Hallucinations: Other (denies) Delusions: No Delusion Type: Other (none) Suicidal: Ideation (denies) Homicidal: Ideation (deny) Insight/Judgement Very poor Vitals/IOs Vital Signs Date Time Temp Pulse Resp B/P Pulse Ox O2 Delivery O2 Flow Rate FiO2 12/16/16 05:41 98.4 71 18 120/61 97 Intake and Output 12/15/16 12/15/16 12/16/16 08:00 16:00 00:00 Intake Total 720 ml 480 ml Balance 720 ml 480 ml Assessment & Plan Problem List: (1) Schizoaffective disorder, bipolar type ICD Code: F25.0 Assessment & Plan Estimated LOS: days patient continues somewhat intrusive mildly paranoid, compliant medications. For now continue treatment Justification for Cont. Inpt. At this time patient will decompensate if placed a lower level of care Discharge Planning To be determined Request HC Surrog/Guard Advoc?: No Ravi Fleming MD Dec 16, 2016 15:53
[2016-12-16 18:00] VITALS: BP 112/65; PULSE 63; RESP 18; TEMP 98.1; O2SAT 95
[2016-12-16] MEDS: ATORVASTATIN 40 MG TAB PO SCH (21:06)
[2016-12-17 06:00] VITALS: BP 118/72; PULSE 71; RESP 17; TEMP 98.6; O2SAT 98
[2016-12-17] MEDS: LITHIUM CARBONATE 300 MG SLOW RELEASE TAB PO SCH ×2 (08:51→21:04)
[2016-12-17] MEDS: PANTOPRAZOLE SOD 40 MG DELAYED RELEASE TAB PO SCH (08:51)
[2016-12-17] MEDS: ASPIRIN 325 MG TAB PO SCH (08:51)
[2016-12-17] MEDS: ARIPiprazole 30 MG TAB PO SCH (08:51)
[2016-12-17] MEDS: BENZTROPINE MESYLATE 2 MG TAB PO SCH (08:51)
[2016-12-17] MEDS: metFORMIN HCL 500 MG TAB PO SCH ×2 (08:52→16:52)
--- NOTE | 2016-12-17 15:05 | HHI.PYPN ---
Subjective Remarks Patient seen in day room with nurse Kumar, chart reviewed, patient alert calm to somewhat irritable but coping with his perceived delay in discharge to [facility]. Patient compliant medications for now continue treatment Review of Systems Except as stated in HPI: all other systems reviewed are Neg Objective Alert: Yes [place]: Person, Place, Situation Mood: Calm Affect: Euthymic (to somewhat restricted), Restricted Memory Intact: Comment (not tested) Hallucinations: Other (denies) Delusions: No Delusion Type: Other (none) Suicidal: Ideation (denies) Homicidal: Ideation (deny) Insight/Judgement Very poor Vitals/IOs Vital Signs Date Time Temp Pulse Resp B/P Pulse Ox O2 Delivery O2 Flow Rate FiO2 12/17/16 06:00 98.6 71 17 118/72 98 Intake and Output 12/16/16 12/16/16 12/17/16 08:00 16:00 00:00 Intake Total 600 ml 1200 ml 600 ml Balance 600 ml 1200 ml 600 ml Assessment & Plan Problem List: (1) Schizoaffective disorder, bipolar type ICD Code: F25.0 Assessment & Plan Estimated LOS: days patient continues somewhat irritable and paranoid though overall no significant behavior problems. Continue treatment Justification for Cont. Inpt. At this time patient will decompensate placed at a lower level of care Discharge Planning To be determined Request HC Surrog/Guard Advoc?: No Ravi Fleming MD Dec 17, 2016 15:05
[2016-12-17 18:00] VITALS: BP 100/61; PULSE 62; RESP 17; TEMP 96.7; O2SAT 97
[2016-12-17] MEDS: ATORVASTATIN 40 MG TAB PO SCH (21:04)
[2016-12-18 05:18] VITALS: BP 85/53; PULSE 62; RESP 17; TEMP 98.2; O2SAT 95
[2016-12-18] MEDS: BENZTROPINE MESYLATE 2 MG TAB PO SCH (09:56)
[2016-12-18] MEDS: PANTOPRAZOLE SOD 40 MG DELAYED RELEASE TAB PO SCH (09:56)
[2016-12-18] MEDS: metFORMIN HCL 500 MG TAB PO SCH ×2 (09:56→18:15)
[2016-12-18] MEDS: ARIPiprazole 30 MG TAB PO SCH (09:57)
[2016-12-18] MEDS: LITHIUM CARBONATE 300 MG SLOW RELEASE TAB PO SCH ×2 (09:57→21:11)
[2016-12-18] MEDS: ASPIRIN 325 MG TAB PO SCH (09:57)
--- NOTE | 2016-12-18 10:41 | HHI.PYPN ---
Subjective Remarks Patient seen in his room with nurse Isabel and family practice resident Sukhdev , chart reviewed. Patient compliant medications is coping with the discharge process, however his need to show good behavior while [facility] is considering accept him back in their facility Review of Systems Except as stated in HPI: all other systems reviewed are Neg Objective Alert: Yes [place]: Person, Place, Situation Mood: Calm Affect: Euthymic (to somewhat restricted), Restricted Memory Intact: Comment (not tested) Hallucinations: Other (denies) Delusions: No Delusion Type: Other (none) Suicidal: Ideation (denies) Homicidal: Ideation (deny) Insight/Judgement Poor Vitals/IOs Vital Signs Date Time Temp Pulse Resp B/P Pulse Ox O2 Delivery O2 Flow Rate FiO2 12/18/16 05:18 98.2 62 17 85/53 95 Intake and Output 12/17/16 12/17/16 12/18/16 08:00 16:00 00:00 Intake Total 240 ml 780 ml Balance 240 ml 780 ml Assessment & Plan Problem List: (1) Schizoaffective disorder, bipolar type ICD Code: F25.0 Assessment & Plan Estimated LOS: days patient continues somewhat irritable but softening, showing some small degree of insight into his need to take responsibility for behaviors, which improve his longevity at [facility] Justification for Cont. Inpt. At this time patient will decompensate if place to the lower level of care Discharge Planning To be determined Request HC Surrog/Guard Advoc?: No Ravi Fleming MD Dec 18, 2016 10:41
[2016-12-18 18:43] VITALS: BP 104/51; PULSE 67; RESP 16; TEMP 97.7; O2SAT 97
[2016-12-18] MEDS: diphenhydrAMINE HCL 50 MG CAP - HS PRN PO (21:11)
[2016-12-18] MEDS: ATORVASTATIN 40 MG TAB PO SCH (21:11)
[2016-12-19 05:07] VITALS: BP 109/56; PULSE 58; RESP 17; TEMP 96.8; O2SAT 95
[2016-12-19] MEDS: ASPIRIN 325 MG TAB PO SCH (09:42)
[2016-12-19] MEDS: PANTOPRAZOLE SOD 40 MG DELAYED RELEASE TAB PO SCH (09:42)
[2016-12-19] MEDS: BENZTROPINE MESYLATE 2 MG TAB PO SCH (09:43)
[2016-12-19] MEDS: LITHIUM CARBONATE 300 MG SLOW RELEASE TAB PO SCH ×2 (09:43→20:26)
[2016-12-19] MEDS: metFORMIN HCL 500 MG TAB PO SCH ×2 (09:43→17:41)
[2016-12-19] MEDS: ARIPiprazole 30 MG TAB PO SCH (09:44)
--- NOTE | 2016-12-19 15:07 | HHI.PYPN ---
Subjective Remarks Patient seen in his room with nurse Emily. Patient calm cooperative coping well with issues related to his referral back to [facility]. Patient compliant medications. For now continue treatment Review of Systems Except as stated in HPI: all other systems reviewed are Neg Objective Alert: Yes [place]: Person, Place, Situation Mood: Calm Affect: Euthymic (to somewhat restricted), Restricted Memory Intact: Comment (not tested) Hallucinations: Other (denies) Delusions: No Delusion Type: Other (none) Suicidal: Ideation (denies) Homicidal: Ideation (deny) Insight/Judgement Poor Vitals/IOs Vital Signs Date Time Temp Pulse Resp B/P Pulse Ox O2 Delivery O2 Flow Rate FiO2 12/19/16 05:07 96.8 58 17 109/56 95 Intake and Output 12/18/16 12/18/16 12/19/16 08:00 16:00 00:00 Intake Total 480 ml 960 ml 440 ml Balance 480 ml 960 ml 440 ml Assessment & Plan Problem List: (1) Schizoaffective disorder, bipolar type ICD Code: F25.0 Assessment & Plan Estimated LOS: days patient showing good coping skills with issues related to placement. He still somewhat intrusive and labile but redirectable. No significant behavioral problems for now continue treatment Justification for Cont. Inpt. At this time patient will decompensate and placed in a lower level of care Discharge Planning To be determined Request HC Surrog/Guard Advoc?: Ravi Mcrae MD Dec 19, 2016 15:07
[2016-12-19 17:52] VITALS: BP 98/57; PULSE 68; RESP 18; TEMP 96.6; O2SAT 95
[2016-12-19] MEDS: diphenhydrAMINE HCL 50 MG CAP - HS PRN PO (20:25)
[2016-12-19] MEDS: ATORVASTATIN 40 MG TAB PO SCH (20:26)
[2016-12-20 04:56] VITALS: BP 104/65; PULSE 58; RESP 16; TEMP 97.9
[2016-12-20] MEDS: PANTOPRAZOLE SOD 40 MG DELAYED RELEASE TAB PO SCH (09:05)
[2016-12-20] MEDS: ASPIRIN 325 MG TAB PO SCH (09:05)
[2016-12-20] MEDS: metFORMIN HCL 500 MG TAB PO SCH ×2 (09:05→17:36)
[2016-12-20] MEDS: LITHIUM CARBONATE 300 MG SLOW RELEASE TAB PO SCH ×2 (09:05→21:26)
[2016-12-20] MEDS: ARIPiprazole 30 MG TAB PO SCH (09:05)
[2016-12-20] MEDS: BENZTROPINE MESYLATE 2 MG TAB PO SCH (09:06)
--- NOTE | 2016-12-20 12:40 | HHI.PYPN ---
Subjective Remarks Patient seen in his room with nurse Enrique, chart review, patient in bed though he did go up for breakfast this morning. Patient seemed slightly more disorganized today though still focusing on discharge to [facility]. He is otherwise no behavioral problems. Compliant medication for now continue treatment Review of Systems Except as stated in HPI: all other systems reviewed are Neg Objective Alert: Yes [place]: Person, Place, Situation Mood: Calm Affect: Euthymic (to somewhat restricted), Restricted Memory Intact: Comment (not tested) Hallucinations: Other (denies) Delusions: No Delusion Type: Other (none) Suicidal: Ideation (denies) Homicidal: Ideation (deny) Insight/Judgement Poor Vitals/IOs Vital Signs Date Time Temp Pulse Resp B/P Pulse Ox O2 Delivery O2 Flow Rate FiO2 12/20/16 04:56 97.9 58 16 104/65 12/19/16 17:52 95 Intake and Output 12/19/16 12/19/16 12/20/16 08:00 16:00 00:00 Intake Total 0 ml 480 ml 960 ml Balance 0 ml 480 ml 960 ml Assessment & Plan Problem List: (1) Schizoaffective disorder, bipolar type ICD Code: F25.0 Assessment & Plan Estimated LOS: days patient continues paranoid isolative, and at times somewhat irritable. Though compliant medications Justification for Cont. Inpt. At this time patient will decompensate if placed in the lower level of care Discharge Planning To be determined Request HC Surrog/Guard Advoc?: No Ravi Fleming MD Dec 20, 2016 12:40
[2016-12-20 17:32] VITALS: BP 112/61; PULSE 56; RESP 16; TEMP 98.1; O2SAT 100
[2016-12-20 19:10] VITALS: BP 112/61; PULSE 56; RESP 16; TEMP 98.1; O2SAT 100
[2016-12-20] MEDS: ATORVASTATIN 40 MG TAB PO SCH (21:27)
[2016-12-21 06:01] VITALS: BP 125/57; PULSE 65; RESP 17; TEMP 97.8; O2SAT 99
[2016-12-21] MEDS: metFORMIN HCL 500 MG TAB PO SCH ×2 (09:06→17:02)
[2016-12-21] MEDS: BENZTROPINE MESYLATE 2 MG TAB PO SCH (09:17)
[2016-12-21] MEDS: LITHIUM CARBONATE 300 MG SLOW RELEASE TAB PO SCH ×2 (09:17→20:42)
[2016-12-21] MEDS: ASPIRIN 325 MG TAB PO SCH (09:17)
[2016-12-21] MEDS: PANTOPRAZOLE SOD 40 MG DELAYED RELEASE TAB PO SCH (09:17)
[2016-12-21] MEDS: ARIPiprazole 30 MG TAB PO SCH (09:17)
--- NOTE | 2016-12-21 13:45 | HHI.PYPN ---
Subjective Remarks Pt seen and discussed with staff. Pt has been calm and cooperative with care on unit. No agitation or disruption. Mood is euthymic. He is focused on returning to [facility]. No SI/HI. Objective Alert: Yes [place]: Person, Place, Situation Mood: Calm Affect: Euthymic Memory Intact: Comment (fair) Hallucinations: Other (denies) Delusions: No Delusion Type: Other (none) Suicidal: Ideation (denies) Homicidal: Ideation (denies) Insight/Judgement poor Vitals/IOs Vital Signs Date Time Temp Pulse Resp B/P Pulse Ox O2 Delivery O2 Flow Rate FiO2 12/21/16 06:01 97.8 65 17 125/57 99 Intake and Output 12/20/16 12/20/16 12/21/16 08:00 16:00 00:00 Intake Total 0 ml 840 ml 960 ml Balance 0 ml 840 ml 960 ml Assessment & Plan Problem List: (1) Schizoaffective disorder, bipolar type ICD Code: F25.0 Assessment & Plan Continue current tx plan. Estimated LOS: days Justification for Cont. Inpt. risk of decompensation. Request HC Surrog/Guard Advoc?: No Sidra Quach MD Dec 21, 2016 13:45
[2016-12-21] MEDS: traZODone HCL 50 MG TAB PO PRN (20:42)
[2016-12-21] MEDS: ATORVASTATIN 40 MG TAB PO SCH (20:42)
[2016-12-21 21:03] VITALS: BP 105/62; PULSE 55; TEMP 97.5; O2SAT 97
[2016-12-22 05:06] VITALS: BP 99/54; PULSE 61; RESP 18; TEMP 96.3; O2SAT 98
[2016-12-22] MEDS: ASPIRIN 325 MG TAB PO SCH (08:59)
[2016-12-22] MEDS: ARIPiprazole 30 MG TAB PO SCH (08:59)
[2016-12-22] MEDS: PANTOPRAZOLE SOD 40 MG DELAYED RELEASE TAB PO SCH (08:59)
[2016-12-22] MEDS: metFORMIN HCL 500 MG TAB PO SCH ×2 (08:59→17:10)
[2016-12-22] MEDS: LITHIUM CARBONATE 300 MG SLOW RELEASE TAB PO SCH ×2 (08:59→20:49)
[2016-12-22] MEDS: BENZTROPINE MESYLATE 2 MG TAB PO SCH (08:59)
--- NOTE | 2016-12-22 15:23 | HHI.PYPN ---
Subjective Remarks Pt seen and discussed with staff. Pt continues to tolerate medications without side effects. No aggression or acting out behaviors. No appetite or sleep disturbances. NO SI/HI Objective Alert: Yes [place]: Person, Place, Situation Mood: Calm Affect: Euthymic Memory Intact: Comment (fair) Hallucinations: Other (denies) Delusions: No Delusion Type: Other (none) Suicidal: Ideation (denies) Homicidal: Ideation (denies) Insight/Judgement poor Vitals/IOs Vital Signs Date Time Temp Pulse Resp B/P Pulse Ox O2 Delivery O2 Flow Rate FiO2 12/22/16 05:06 96.3 61 18 99/54 98 Intake and Output 12/21/16 12/21/16 12/22/16 08:00 16:00 00:00 Intake Total 480 ml 840 ml 1280 ml Balance 480 ml 840 ml 1280 ml Assessment & Plan Problem List: (1) Schizoaffective disorder, bipolar type ICD Code: F25.0 Assessment & Plan Continue current tx plan. Estimated LOS: days Justification for Cont. Inpt. risk of decompensation Request HC Surrog/Guard Advoc?: Sidra Mcfadden MD Dec 22, 2016 3:23 pm
[2016-12-22 19:17] VITALS: BP_SYST 111; BP_SYST 99; BP_DIAS 54; BP_DIAS 61; PULSE 60; PULSE 61; RESP 18; TEMP 96.3; TEMP 97.8; O2SAT 98
[2016-12-22] MEDS: ATORVASTATIN 40 MG TAB PO SCH (20:48)
[2016-12-22] MEDS: hydrOXYzine HCL 50 MG TAB PO PRN (20:48)
[2016-12-23 06:07] VITALS: BP 132/73; PULSE 59; RESP 18; TEMP 98.2; O2SAT 98
[2016-12-23] MEDS: ARIPiprazole 30 MG TAB PO SCH (09:00)
[2016-12-23] MEDS: ASPIRIN 325 MG TAB PO SCH (09:16)
[2016-12-23] MEDS: PANTOPRAZOLE SOD 40 MG DELAYED RELEASE TAB PO SCH (09:16)
[2016-12-23] MEDS: BENZTROPINE MESYLATE 2 MG TAB PO SCH (09:16)
[2016-12-23] MEDS: LITHIUM CARBONATE 300 MG SLOW RELEASE TAB PO SCH ×2 (09:16→21:19)
[2016-12-23] MEDS: metFORMIN HCL 500 MG TAB PO SCH ×2 (09:16→18:00)
[2016-12-23 16:29] VITALS: BP 93/50; PULSE 58; RESP 18; TEMP 98.1; O2SAT 98
--- NOTE | 2016-12-23 17:01 | HHI.PYPN ---
Subjective Remarks Patient discussed with treatment team, chart reviewed, seen on unit. Patient continues to cope well with delays related to placement. He continues to isolate at times somewhat irritable but redirectable. Compliant medications. Review of Systems Except as stated in HPI: all other systems reviewed are Neg Objective Alert: Yes [place]: Person, Place, Situation Mood: Calm Affect: Euthymic Memory Intact: Comment (fair) Hallucinations: Other (denies) Delusions: No Delusion Type: Other (none) Suicidal: Ideation (denies) Homicidal: Ideation (denies) Insight/Judgement Very poor Vitals/IOs Vital Signs Date Time Temp Pulse Resp B/P Pulse Ox O2 Delivery O2 Flow Rate FiO2 12/23/16 16:29 98.1 58 18 93/50 98 Intake and Output 12/22/16 12/22/16 12/23/16 08:00 16:00 00:00 Intake Total 240 ml 1200 ml 1440 ml Balance 240 ml 1200 ml 1440 ml Assessment & Plan Problem List: (1) Schizoaffective disorder, bipolar type ICD Code: F25.0 Assessment & Plan Estimated LOS: days patient continues somewhat irritable and paranoid, though redirectable and compliant with medications Justification for Cont. Inpt. At this time patient will decompensate if placed in a lower level of care Discharge Planning To be determined Request HC Surrog/Guard Advoc?: No Ravi Fleming MD Dec 23, 2016 17:01
[2016-12-23] MEDS: ATORVASTATIN 40 MG TAB PO SCH (21:19)
[2016-12-24 06:19] VITALS: BP 115/72; PULSE 63; RESP 18; TEMP 98; O2SAT 95
[2016-12-24] MEDS: ARIPiprazole 30 MG TAB PO SCH (09:23)
[2016-12-24] MEDS: BENZTROPINE MESYLATE 2 MG TAB PO SCH (09:23)
[2016-12-24] MEDS: PANTOPRAZOLE SOD 40 MG DELAYED RELEASE TAB PO SCH (09:23)
[2016-12-24] MEDS: metFORMIN HCL 500 MG TAB PO SCH ×2 (09:24→18:24)
[2016-12-24] MEDS: ASPIRIN 325 MG TAB PO SCH (09:24)
[2016-12-24] MEDS: LITHIUM CARBONATE 300 MG SLOW RELEASE TAB PO SCH ×2 (09:24→21:05)
--- NOTE | 2016-12-24 14:09 | HHI.PYPN ---
Subjective Remarks Patient seen in his room with floor staff, chart reviewed. Patient continues to isolate somewhat irritable though coping with the delays in response from [facility]. It appears they will be coming out tomorrow to reassess him for possible return to their facility. Patient compliant medications no other behavioral problems Review of Systems Except as stated in HPI: all other systems reviewed are Neg Objective Alert: Yes [place]: Person, Place, Situation Mood: Calm Affect: Euthymic Memory Intact: Comment (fair) Hallucinations: Other (denies) Delusions: No Delusion Type: Other (none) Suicidal: Ideation (denies) Homicidal: Ideation (denies) Insight/Judgement Poor Vitals/IOs Vital Signs Date Time Temp Pulse Resp B/P Pulse Ox O2 Delivery O2 Flow Rate FiO2 12/24/16 06:19 98.0 63 18 115/72 95 Intake and Output 12/23/16 12/23/16 12/24/16 08:00 16:00 00:00 Intake Total 120 ml 600 ml 1440 ml Balance 120 ml 600 ml 1440 ml Assessment & Plan Problem List: (1) Schizoaffective disorder, bipolar type ICD Code: F25.0 Assessment & Plan Estimated LOS: days patient continues somewhat vigilant, irritable and isolating, though no significant behavioral problems. Continues to cope with issues related to placement Justification for Cont. Inpt. At this time patient will decompensate if placed in a lower level of care Discharge Planning To be determined Request HC Surrog/Guard Advoc?: No Ravi Fleming MD Dec 24, 2016 14:08
[2016-12-24 18:03] VITALS: BP 94/57; PULSE 65; RESP 18; TEMP 98.2; O2SAT 94
[2016-12-24] MEDS: ATORVASTATIN 40 MG TAB PO SCH (21:05)
[2016-12-25 06:00] VITALS: BP 124/62; PULSE 58; RESP 16; TEMP 96.9; O2SAT 98
[2016-12-25] MEDS: PANTOPRAZOLE SOD 40 MG DELAYED RELEASE TAB PO SCH (09:00)
[2016-12-25] MEDS: LITHIUM CARBONATE 300 MG SLOW RELEASE TAB PO SCH (09:59)
[2016-12-25] MEDS: metFORMIN HCL 500 MG TAB PO SCH (09:59)
[2016-12-25] MEDS: ARIPiprazole 30 MG TAB PO SCH (09:59)
[2016-12-25] MEDS: BENZTROPINE MESYLATE 2 MG TAB PO SCH (10:00)
[2016-12-25] MEDS: ASPIRIN 325 MG TAB PO SCH (10:00)
[2016-12-25] MEDS ORDERED: LITH300T PO (14:19)
[2016-12-25] MEDS ORDERED: CARB100C PO (14:19)
[2016-12-25] MEDS ORDERED: BENZ2TAB PO (14:19)
[2016-12-25] MEDS ORDERED: ASPI325T PO (14:19)
[2016-12-25] MEDS ORDERED: ATOR40TA16 PO (14:19)
[2016-12-25] MEDS ORDERED: PANT40TA3 PO (14:19)
[2016-12-25] MEDS ORDERED: TRAZ50TA12 PO (14:19)
[2016-12-25] MEDS ORDERED: METF500 PO (14:19)
[2016-12-25] MEDS ORDERED: ABIL30TA2 PO (14:19)
--- NOTE | 2016-12-25 14:30 | HHI.DS ---
Psychiatry Discharge Summary Inpatient Psychiatric care?: Yes Advance Directive: No Reason Not Provided: patient lacks capacity Mental Health AdvanceDirective: No Health Care Proxy: No Admission Admission Date Nov 21, 2016 at 04:23 Admission Diagnosis: (1) Schizoaffective disorder, bipolar type ICD Code: F25.0 (2) Dementia with behavioral problem ICD Code: F03.[address] Fleming's H&P: Patient is a 66-year-old white male well-known post multiple prior contacts comes here under Wills act signed by Ewa martell from [facility] dated 11/20/16 10 AM stating resident refuses care yelling out to other patient's and staff trying to smoke in room incontinent of bowel and bladder. Patient seen screened in ED urine toxicology negative but alcohol level negative. Of interest patient was hospitalized here 11/01/16 through 11/15/16 with under my care. Patient has been hospital 6 times from 2015 through the present time. He was hospitalized 4 times in 2014. He has had multiple hospitalizations prior to that first documented in our EMR in 2004. The more recent hospitalizations all show some of behaviors on his part leading to the Wills act. Patient seen by me in dayroom initially with him sitting at a table his head down on the table refusing to speak with me. I returned about an hour later patient now sitting in a chair in the day room more alert did recognize me. He stated now he wants to go back to his alf. He shows confusion irritability lability with no insight into his issues. He does denies suicidality, though he denies voices she appears to be responding to internal stimuli. As mentioned above she is been noncompliant with his medications. Upon review of the EMR I feel this marked recidivism and inability to maintain himself in a local [facility] needs me to order state referral packet. For now we will continue his schedule medications. On my examination today: Patient seen and examined. Chart reviewed. Case discussed with RN who reports patient has been verbally abusive but not physically aggressive during her shift. On my examination today, patient reports that he has come into the hospital, "because I was honeymooning down in [place] and I decided to check it out." With prompting, patient recalls that he was at [facility] but says that "everything was fine." He clarifies to say, "we thought some people were out to get us, we had to dive into the dirt, had to get the hose." Denies AVH. Denies SI/HI. Somewhat disorganized, says things like, "I shaved my brain." He says, "I thought I'd just sleep here then go home." Mood is good. Psychiatric ROS is otherwise negative. Patient is a poor historian and is unable to provide past psychiatric, family, chemical dependency or social history at this time. Tobacco Use In Past 30 Days: Refused To Answer Alcohol Use: Never Hospital Course Patient initial agitation noncompliance medication irritability with psychotic features did slowly resolve with his compliance with medication with the addition of the lithium and the Tegretol. [facility] with patient has lived for an extended period of time have been here and interviewed the patient and assessed him. They feel his Riches baseline and I willing have him return to their facility today. Patient is willing to go there showing some minimal insight into his need to be cooperative and control his lability temper and poor coping skills. Thus patient be discharged today to [facility], Rx 1 month, follow-up mental health services through that facility Results Blood Pressure 124 / 62 Vital Signs Date Time Temp Pulse Resp B/P Pulse Ox O2 Delivery O2 Flow Rate FiO2 12/25/16 06:00 96.9 58 16 124/62 98 Tegretol level VIII.0 on 12/13, lithium 0.9 on 12/15 Summary of Procedures None done Pending results at discharge: No Medications # of Antipsychotic meds at D/C: 2 Appropriate >1 Antipsych meds?: 1 Approp Antipsych med options 1 - Minimum of three failed multiple trials of monotherapy. 2 - Documented plan to taper to monotherapy due to previous use of multiple meds OR cross-taper in progress at D/C. 3 - Documentation of augmentation of Clozapine. 4 - Justification other than those listed in allowable values 1-3, document here : Discharge Discharge Date: Dec 25, 2016 Discharge Diagnosis: (1) Schizoaffective disorder, bipolar type Diagnosis: Principal ICD Code: F25.0 (2) Dementia with behavioral problem Diagnosis: Secondary ICD Code: F03.91 Mental Status Exam at Disch Alert fairly well oriented white male appears stated age, he has normal active, patient is euthymic to somewhat irritable with slight increase range intensity was affect, speech rate and rhythm are somewhat increased is tangential and circumstantial in auditory or visual hallucinations noted no delusions noted insight and judgment is poor cognition somewhat limited Pt Condition on Discharge: Stable Discharge Disposition: [facility]AY Discharge Instructions Diet Instructions: Diabetic Diet Additional Diet Instructions: 1800-calorie Activities you can perform: Regular-No Restrictions Scheduled Appointment: [facility], follow-up mental health care to that facility Discharge Time > 30 minutes Discharge/Advance Care Plan Health Problems: (1) Schizoaffective disorder, bipolar type Goals to promote your health * To prevent worsening of your condition and complications * To maintain your health at the optimal level Directions to meet your goals Take your medications as prescribed Follow your dietary instruction Follow activity as directed Keep your appointments as scheduled Take your immunizations and boosters as scheduled If your symptoms worsen call your PCP, if no PCP go to Urgent Care Center or Emergency Room For 24/ questions related to your inpatient stay or results of tests pending at discharge, please contact Dr. Ravi Fleming at Smoking is Dangerous to Your Health. 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
== END 2016-12-25 14:50 | DRG 885 ==
LOC: NEPA 11:16 → NEDA 11-21 04:23 → H250 11-21 05:30
PROVIDERS: ADMIT Psychiatry & Neurology Psychiatry; ATTEND Psychiatry & Neurology Psychiatry
DX: F25.0 Schizoaffective disorder, bipolar type (principal); I48.91 Unspecified atrial fibrillation; E11.9 Type 2 diabetes mellitus without complications; N39.0 Urinary tract infection, site not specified; G30.0 Alzheimer's disease with early onset; F02.81 Dementia in other diseases classified elsewhere, unspecified severity, with behavioral disturbance; I10 Essential (primary) hypertension; B96.1 Klebsiella pneumoniae [K. pneumoniae] as the cause of diseases classified elsewhere; J44.9 Chronic obstructive pulmonary disease, unspecified; E78.00 Pure hypercholesterolemia, unspecified; D64.9 Anemia, unspecified; E78.5 Hyperlipidemia, unspecified; K21.9 Gastro-esophageal reflux disease without esophagitis; Z91.14 Patient's other noncompliance with medication regimen; Z79.84 Long term (current) use of oral hypoglycemic drugs; Z79.82 Long term (current) use of aspirin
CPT/HCPCS: 80048; 80061; 80156; 80178; 80307; 80320; 81001; 82948; 83036; 85025; 87077; 87086; 87186; 96374; J2060; Q0163

== ENCOUNTER 2017-04-13 21:35 | Inpatient (IN) | payer OTHER ==
[~2017-04-13] VITALS: Ht 167.6 cm; Wt 61.1 kg
[~2017-04-13 21:35] MED LIST changes: +ATOR40TA16 PO; +CARB100C PO; -CIPR250T52 PO; +LITH300T PO; +PANT40TA3 PO; +TRAZ50TA12 PO
[2017-04-13 22:25] VITALS: BP 139/77; PULSE 76; RESP 16; TEMP 98; O2SAT 98
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
[2017-04-13 23:11] LABS: AUTOMATED NEUTROPHIL # 5.3 TH/MM3 (1.8-7.7); BASOPHIL # 0.1 TH/MM3 (0-0.2); EOSINOPHIL # 0.3 TH/MM3 (0-0.4); EOSINOPHIL % 4.2 % (0.0-4.0); HEMATOCRIT 38.3 % (39.0-51.0); HEMO FLAGS DIFF FINAL; LYMPH % 17.4 % (9.0-44.0); LYMPHOCYTE # 1.3 TH/MM3 (1.0-4.8); MONO % 7.3 % (0.0-8.0); NEUT % 70.1 % (16.0-70.0); PLATELET COUNT 222 TH/MM3 (150-450); RED BLOOD COUNT 4.07 MIL/MM3 (4.50-5.90); WHITE BLOOD COUNT 7.5 TH/MM3 (4.0-11.0)
[2017-04-13 23:21] LABS: BACTERIA, URINE MANY /hpf; BLOOD, URINE MOD (NEG); COMMENT (UR) CULTURE INDICATED; CULTURE IF INDICATED CULTURE INDICATED; GLUCOSE,URINE NEG (NEG); HYALINE CAST, URINE 10 /lpf (RARE); KETONE, URINE NEG (NEG); MUCUS URINE FEW /lpf (OCC); NITRITE,URINE NEG (NEG); PH, URINE 6.5 (5.0-8.5); URINE COLOR YELLOW (YELLW/STRAW)
[2017-04-13 23:38] LABS: ALT (GPT) 16 U/L (12-78); ANION GAP 6 MEQ/L (5-15); AST (GOT) 11 U/L (15-37); BICARBONATE 24.9 MEQ/L (21.0-32.0); BLOOD UREA NITROGEN 17 MG/DL (7-18); CHLORIDE 111 MEQ/L (98-107); GLOMERULAR FILTRATION RATE 95 ML/MIN (>89); POTASSIUM 3.7 MEQ/L (3.5-5.1); SODIUM (NA) 142 MEQ/L (136-145)
[2017-04-13 23:40] LABS: ALKALINE PHOSPHATASE 86 U/L (45-117); TOTAL BILIRUBIN ADULT 0.3 MG/DL (0.2-1.0)
[2017-04-13] MEDS ORDERED: CEPHALEXIN MONOHYDRATE 500 MG CAP PO ONE (23:45)
[2017-04-13] MEDS ORDERED: MACR100C2 PO (23:59)
[2017-04-14] MEDS ORDERED: BENZ0.5T PO (00:20)
[2017-04-14] MEDS ORDERED: [UNRECOGNIZED DRUG - CODE] PO (00:20)
[2017-04-14] MEDS ORDERED: traZODone HCL 50 MG TAB PO ONE (02:15)
[2017-04-14] MEDS ORDERED: LORazepam 2 MG/ML VIAL IM ONE (02:45)
[2017-04-14 04:11] VITALS: PULSE 71; RESP 16; O2SAT 97
[2017-04-14 07:03] VITALS: BP 106/59; PULSE 64; RESP 16; O2SAT 98
[2017-04-14] MEDS ORDERED: HALOPERIDOL 5 MG TAB PO ONE (12:00)
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
[2017-04-14] MEDS ORDERED: ACETAMINOPHEN 325 MG TAB PO PRN (13:00)
[2017-04-14] MEDS ORDERED: MAGNESIUM HYDROXIDE SUSP 30 ML CUP PO PRN (13:00)
[2017-04-14] MEDS ORDERED: ALUMINUM/MAGNESIUM/SIMETH 30 ML CUP PO PRN (13:00)
[2017-04-14 16:13] VITALS: BP 134/71; PULSE 70; RESP 16; TEMP 97.4
[2017-04-14] MEDS: metFORMIN HCL 500 MG TAB PO SCH (17:34)
[2017-04-14 18:00] VITALS: BP 142/69; PULSE 74; RESP 18
[2017-04-14] MEDS ORDERED: SALSALATE 500 MG PO SCH (18:00)
[2017-04-15 05:52] VITALS: BP_SYST 118; BP_SYST 120; BP_DIAS 61; BP_DIAS 65; PULSE 68; PULSE 76; RESP 16; RESP 18; TEMP 97.6; O2SAT 95; O2SAT 96
[2017-04-15] MEDS: LITHIUM CARBONATE 300 MG SLOW RELEASE TAB PO SCH ×2 (08:39→21:37)
[2017-04-15] MEDS: PANTOPRAZOLE SOD 40 MG DELAYED RELEASE TAB PO SCH (08:40)
[2017-04-15] MEDS: metFORMIN HCL 500 MG TAB PO SCH ×3 (08:40→17:33)
[2017-04-15] MEDS: BENZTROPINE MESYLATE 1 MG TAB PO SCH (08:40)
[2017-04-15] MEDS: ASPIRIN 325 MG TAB PO SCH (08:40)
[2017-04-15] MEDS: ARIPiprazole 30 MG TAB PO SCH (08:40)
[2017-04-15] MEDS: NICOTINE 21 MG/24 HR PATCH T-DERMAL SCH (08:43)
[2017-04-15] MEDS: REMOVE OLD PATCH T-DERMAL SCH (08:44)
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
[2017-04-15] MEDS ORDERED: BENZTROPINE MESYLATE 2 MG/2 ML VIAL IM PRN (13:45)
[2017-04-15] MEDS ORDERED: BENZTROPINE MESYLATE 1 MG TAB PO PRN (13:45)
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
[2017-04-15] MEDS ORDERED: NITROFURANTOIN MONOHYD MACROCR 100 MG CAP PO SCH (18:00)
[2017-04-15 18:01] VITALS: BP 104/64; PULSE 77; RESP 18; TEMP 98.2; O2SAT 97
[2017-04-15] MEDS: CEFUROXIME AXETIL 500 MG TAB PO SCH ×2 (21:00→22:11)
[2017-04-15] MEDS: ATORVASTATIN 40 MG TAB PO SCH (21:38)
[2017-04-15] MEDS: traZODone HCL 50 MG TAB PO PRN (21:41)
[2017-04-15] MEDS: HALOPERIDOL LACTATE 5 MG/ML AMP IM PRN (22:23)
[2017-04-16 05:45] VITALS: BP 109/55; PULSE 77; RESP 18; TEMP 98; O2SAT 96
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
[2017-04-16] MEDS: REMOVE OLD PATCH T-DERMAL SCH (09:00)
[2017-04-16] MEDS: ARIPiprazole 30 MG TAB PO SCH (09:00)
[2017-04-16] MEDS: ASPIRIN 325 MG TAB PO SCH (09:00)
[2017-04-16 09:10] LABS: ANION GAP 8 MEQ/L (5-15); BICARBONATE 22.6 MEQ/L (21.0-32.0); BLOOD UREA NITROGEN 27 MG/DL (7-18); CHLORIDE 110 MEQ/L (98-107); GLOMERULAR FILTRATION RATE 86 ML/MIN (>89); POTASSIUM 3.9 MEQ/L (3.5-5.1); SODIUM (NA) 141 MEQ/L (136-145)
[2017-04-16 09:14] LABS: HDL CHOLESTEROL 49.3 MG/DL (40.0-60.0); LDL CHOLESTEROL 112 MG/DL (0-99)
[2017-04-16] MEDS ORDERED: DIATRIZOATE MEGLUM/DIATRIZOATE SOD 9 ML CUP PO ONE (09:15)
[2017-04-16] MEDS: BENZTROPINE MESYLATE 1 MG TAB PO SCH ×4 (09:21→21:00)
[2017-04-16] MEDS: PANTOPRAZOLE SOD 40 MG DELAYED RELEASE TAB PO SCH (09:21)
[2017-04-16] MEDS: NICOTINE 21 MG/24 HR PATCH T-DERMAL SCH (09:22)
[2017-04-16] MEDS: CEFUROXIME AXETIL 500 MG TAB PO SCH ×3 (09:22→20:57)
[2017-04-16] MEDS: metFORMIN HCL 500 MG TAB PO SCH ×2 (09:22→17:02)
[2017-04-16] MEDS: LITHIUM CARBONATE 300 MG SLOW RELEASE TAB PO SCH ×3 (09:22→21:00)
--- NOTE | 2017-04-16 09:41 | HHI.PYPN ---
Subjective Remarks Patient seen and examined with counselor and nurse. Chart reviewed. Case discussed with nursing staff. Patient unable to tolerate CT abdomen and pelvis overnight, and this has been put on hold at my order until it can be safely completed. On my examination today, the patient presents as negativistic. He does endorse auditory hallucinations. He speaks very little, and what he does say is largely nonsensical, although he does seem to understand. No evident side effects from medications. No physical complaints. Review of Systems ROS Limitations: Psychotic, Poor Historian Except as stated in HPI: all other systems reviewed are Neg Objective Alert: Yes [place]: Person Mood: Other (presently calm) Affect: Flat Memory Intact: Comment (not formally assessed) Hallucinations: Auditory (Appears int stim) Delusions: No Delusion Type: Other (Difficult to assess but suspect underlying paranoia) Suicidal: Ideation (No SI voiced) Homicidal: Ideation (No HI voiced) Insight/Judgment Poor Remarks Posture somewhat stooped. Some stiffness/cog-wheeling appreciated in arms. No other motor abnormalities besides chronically abnormal gait as before. Grooming and hygiene poor. Suspect underlying disorganized thought process. Labs Test 04/16/17 08:13 Sodium Level 142 MEQ/L Potassium Level 3.9 MEQ/L Chloride Level 110 MEQ/L Carbon Dioxide Level 24.0 MEQ/L Anion Gap 8 MEQ/L Blood Urea Nitrogen 27 MG/DL Creatinine 0.89 MG/DL Estimat Glomerular Filtration 86 ML/MIN Rate Random Glucose 128 MG/DL Calcium Level 9.8 MG/DL Triglycerides Level 115 MG/DL Cholesterol Level 184 MG/DL LDL Cholesterol 112 MG/DL HDL Cholesterol 49.3 MG/DL Cholesterol/HDL Ratio 3.73 RATIO Date/Time Procedure Status Source Growth 04/13/17 23:00 Urine Culture - Final Complete Urine Random Urine Klebsiella Pneumoniae Labs reviewed. GFR stable. Mild hyperglycemia. Vitals/IOs Vital Signs Date Time Temp Pulse Resp B/P Pulse Ox O2 Delivery O2 Flow Rate FiO2 04/16/17 05:45 98.0 77 18 109/55 96 04/14/17 07:03 Nasal Cannula 2 Assessment & Plan Problem List: (1) Schizoaffective disorder, bipolar type ICD Code: F25.0 Assessment & Plan Continue Abilify and lithium as ordered. Could consider additional antipsychotic, but patient does usually respond to this regimen. I will titrate Cogentin to 2mg BID for side effect management. I will add a bowel regimen as Cogentin can be constipating. Consult to PT. [place] [facility]. Appreciate hospitalist input. Continue other medications and care as ordered. Justification for Cont. Inpt. Impairment in reality construction. Impairment in self-care. High risk for decompensation and less restrictive environment. Discharge Planning Pending psychiatric stabilization Request HC Surrog/Guard Advoc?: Yes Shawn Parikh MD Apr 16, 2017 09:41
[2017-04-16] MEDS ORDERED: BISACODYL EC 5 MG TABEC PO PRN (13:00)
[2017-04-16 16:51] LABS: HEMOGLOBIN A1b 0.9 %; HEMOGLOBIN Ao 83.6 %; HEMOGLOBIN F 1.1 %; HEMOGLOBIN LA1C 2.2 %; HEMOGLOBIN P3 4.1 %
[2017-04-16 18:16] VITALS: BP 115/62; PULSE 85; RESP 18; TEMP 98.1; O2SAT 96
[2017-04-16] MEDS: ATORVASTATIN 40 MG TAB PO SCH ×2 (20:41→21:00)
[2017-04-16] MEDS: DOCUSATE SODIUM 100 MG CAP PO SCH ×3 (20:42→21:00)
[2017-04-17] MEDS: metFORMIN HCL 500 MG TAB PO SCH ×2 (09:00→17:43)
[2017-04-17] MEDS: REMOVE OLD PATCH T-DERMAL SCH (09:00)
[2017-04-17] MEDS: CEFUROXIME AXETIL 500 MG TAB PO SCH ×2 (09:00→20:52)
[2017-04-17] MEDS: LITHIUM CARBONATE 300 MG SLOW RELEASE TAB PO SCH ×2 (09:00→20:55)
[2017-04-17] MEDS: DOCUSATE SODIUM 100 MG CAP PO SCH ×2 (09:00→20:53)
[2017-04-17] MEDS: ARIPiprazole 30 MG TAB PO SCH (09:00)
[2017-04-17] MEDS: PANTOPRAZOLE SOD 40 MG DELAYED RELEASE TAB PO SCH (09:00)
[2017-04-17] MEDS: NICOTINE 21 MG/24 HR PATCH T-DERMAL SCH (09:00)
[2017-04-17] MEDS: BENZTROPINE MESYLATE 1 MG TAB PO SCH ×2 (09:00→20:53)
[2017-04-17] MEDS: ASPIRIN 325 MG TAB PO SCH (09:00)
--- NOTE | 2017-04-17 09:27 | HHI.PYPN ---
Subjective Remarks Patient seen and examined with counselor and nurse. Chart reviewed. Case d/w RN. Patient refused medications this morning. On my exam, patient sitting in the day room. Remains quite negativistic. When I try to engage with him, he shouts out, "No!" and stares at the floor. He refuses to answer any questions. No physical complaints. Review of Systems ROS Limitations: Uncooperative, Poor Historian Except as stated in HPI: all other systems reviewed are Neg Objective Alert: Yes [place]: Person Mood: Oppositional Affect: Restricted Memory Intact: Comment (not formally assessed) Hallucinations: Auditory (Int stim) Delusions: No Delusion Type: Other (Suspect underlying paranoia) Suicidal: Ideation (No SI voiced) Homicidal: Ideation (No HI voiced) Insight/Judgment Poor Remarks No motor abnormalities noted. Grooming and hygiene quite poor. Labs Date/Time Procedure Status Source Growth 04/13/17 23:00 Urine Culture - Final Complete Urine Random Urine Klebsiella Pneumoniae Labs reviewed. Vitals/IOs Vital Signs Date Time Temp Pulse Resp B/P Pulse Ox O2 Delivery O2 Flow Rate FiO2 04/16/17 18:16 98.1 85 18 115/62 96 04/14/17 07:03 Nasal Cannula 2 Assessment & Plan Problem List: (1) Schizoaffective disorder, bipolar type ICD Code: F25.0 Assessment & Plan Refusing meds today. Reviewing historical MAR, I note patient has received Haldol and Geodon in past. I will adjust Abilify to 15mg BID and add Geodon IM BID PRN refuses PO Abilify. I did consider just administering Abilify Maintena instead, but it would likely take too long to get to therapeutic level without oral supplementation to be useful in current setting, but we might still consider this. Patient still too unpredictable for CTA/P. Continue to monitor on the high acuity unit. Continue other medications and care as ordered. Justification for Cont. Inpt. Medication changes in process. Impairment in self-care. High risk for decompensation in less restrictive environment. Discharge Planning Pending psychiatric stabilization. Request HC Surrog/Guard Advoc?: Yes Shawn Parikh MD Apr 17, 2017 09:27
[2017-04-17 15:50] VITALS: BP 127/68; PULSE 64; RESP 18; TEMP 97.4; O2SAT 97
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
[2017-04-17] MEDS: ATORVASTATIN 40 MG TAB PO SCH (20:53)
[2017-04-17] MEDS: ARIPiprazole 15 MG TAB PO SCH (20:58)
[2017-04-18 05:58] VITALS: BP 108/62; PULSE 76; RESP 18; TEMP 98; O2SAT 96
[2017-04-18] MEDS: LITHIUM CARBONATE 300 MG SLOW RELEASE TAB PO SCH ×2 (08:32→20:26)
[2017-04-18] MEDS: BENZTROPINE MESYLATE 1 MG TAB PO SCH ×2 (08:32→20:28)
[2017-04-18] MEDS: ARIPiprazole 30 MG TAB PO SCH (08:32)
[2017-04-18] MEDS: CEFUROXIME AXETIL 500 MG TAB PO SCH (08:33)
[2017-04-18] MEDS: ARIPiprazole 15 MG TAB PO SCH ×2 (08:33→20:27)
[2017-04-18] MEDS: DOCUSATE SODIUM 100 MG CAP PO SCH ×2 (08:34→20:28)
[2017-04-18] MEDS: ASPIRIN 325 MG TAB PO SCH (08:34)
[2017-04-18] MEDS: PANTOPRAZOLE SOD 40 MG DELAYED RELEASE TAB PO SCH (08:34)
[2017-04-18] MEDS: metFORMIN HCL 500 MG TAB PO SCH ×2 (08:34→18:00)
[2017-04-18] MEDS: REMOVE OLD PATCH T-DERMAL SCH (08:35)
[2017-04-18] MEDS: NICOTINE 21 MG/24 HR PATCH T-DERMAL SCH (08:35)
[2017-04-18 09:51] LABS: HEMATOCRIT 41.9 % (39.0-51.0); MEAN CELL VOLUME 95.7 FL (80.0-100.0); MEAN CORPUSCULAR HEMOGLOBIN 31.8 PG (27.0-34.0); MEAN CORPUSCULAR HGB CONC 33.2 % (32.0-36.0); PLATELET COUNT 265 TH/MM3 (150-450); RED BLOOD COUNT 4.38 MIL/MM3 (4.50-5.90); RED CELL DISTRIBUTION WIDTH 13.7 % (11.6-17.2); REVIEW FLAG FINAL; WHITE BLOOD COUNT 7.7 TH/MM3 (4.0-11.0)
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
[2017-04-18] MEDS ORDERED: LIDOCAINE HCL 1% 20 ML VIAL INFIL ONE (17:00)
[2017-04-18 17:47] VITALS: BP 122/74; PULSE 75; RESP 16; TEMP 98.1; O2SAT 97
[2017-04-18] MEDS: ATORVASTATIN 40 MG TAB PO SCH (20:28)
[2017-04-19 06:55] VITALS: BP 118/65; PULSE 69; RESP 17; TEMP 96.9; O2SAT 96
[2017-04-19] MEDS: NICOTINE 21 MG/24 HR PATCH T-DERMAL SCH (08:53)
[2017-04-19] MEDS: LITHIUM CARBONATE 300 MG SLOW RELEASE TAB PO SCH ×2 (08:54→21:02)
[2017-04-19] MEDS: BENZTROPINE MESYLATE 1 MG TAB PO SCH ×2 (08:54→21:01)
[2017-04-19] MEDS: metFORMIN HCL 500 MG TAB PO SCH ×2 (08:54→17:12)
[2017-04-19] MEDS: ASPIRIN 325 MG TAB PO SCH (08:54)
[2017-04-19] MEDS: PANTOPRAZOLE SOD 40 MG DELAYED RELEASE TAB PO SCH (08:54)
[2017-04-19] MEDS: DOCUSATE SODIUM 100 MG CAP PO SCH ×2 (08:54→21:03)
[2017-04-19] MEDS: ARIPiprazole 15 MG TAB PO SCH ×2 (08:55→21:00)
[2017-04-19] MEDS: REMOVE OLD PATCH T-DERMAL SCH (09:00)
--- NOTE | 2017-04-19 14:11 | HHI.PYPN ---
Subjective Remarks Pt seen and discussed with staff. He has been grabbing at staff and mumbling incoherently to self. He required lots of prompting to take medications. He yells at MD "No Doctors! No ! No!" during rounds. Objective Alert: Yes [place]: Person Mood: Other (irritable) Affect: Labile Memory Intact: Comment (not formally assessed) Hallucinations: Auditory (remains internally preoccupied) Delusions: No Delusion Type: Other (no delusions) Suicidal: Ideation (no SI) Homicidal: Ideation (no HI) Insight/Judgment [place] Vitals/IOs Vital Signs Date Time Temp Pulse Resp B/P Pulse Ox O2 Delivery O2 Flow Rate FiO2 04/19/17 06:55 96.9 69 17 118/65 96 Assessment & Plan Problem List: (1) Schizoaffective disorder, bipolar type ICD Code: F25.0 Assessment & Plan Continue current tx plan. Estimated LOS: days Justification for Cont. Inpt. impairments in safety and reality testing Request HC Surrog/Guard Advoc?: Yes Sidra Quach MD Apr 19, 2017 14:11
[2017-04-19] MEDS: HALOPERIDOL LACTATE 5 MG/ML AMP IM PRN (15:19)
[2017-04-19 18:00] VITALS: BP 152/73; PULSE 72; RESP 18; TEMP 99.1; O2SAT 96
[2017-04-19] MEDS: traZODone HCL 50 MG TAB PO PRN (21:02)
[2017-04-19] MEDS: ATORVASTATIN 40 MG TAB PO SCH (21:02)
[2017-04-20 05:40] VITALS: BP 143/74; PULSE 80; RESP 18; TEMP 97.9; O2SAT 95
[2017-04-20] MEDS: ASPIRIN 325 MG TAB PO SCH (08:35)
[2017-04-20] MEDS: ARIPiprazole 15 MG TAB PO SCH ×2 (08:35→20:41)
[2017-04-20] MEDS: BENZTROPINE MESYLATE 1 MG TAB PO SCH ×2 (08:36→20:41)
[2017-04-20] MEDS: LITHIUM CARBONATE 300 MG SLOW RELEASE TAB PO SCH ×2 (08:37→20:42)
[2017-04-20] MEDS: DOCUSATE SODIUM 100 MG CAP PO SCH ×2 (08:37→20:40)
[2017-04-20] MEDS: metFORMIN HCL 500 MG TAB PO SCH ×2 (08:37→17:15)
[2017-04-20] MEDS: PANTOPRAZOLE SOD 40 MG DELAYED RELEASE TAB PO SCH (08:37)
[2017-04-20] MEDS: REMOVE OLD PATCH T-DERMAL SCH (09:00)
[2017-04-20] MEDS: NICOTINE 21 MG/24 HR PATCH T-DERMAL SCH (09:00)
[2017-04-20] MEDS ORDERED: LORazepam 2 MG/ML VIAL ONE (09:51)
[2017-04-20] MEDS: HALOPERIDOL LACTATE 5 MG/ML AMP IM PRN (09:57)
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
[2017-04-20] MEDS: ATORVASTATIN 40 MG TAB PO SCH (20:41)
[2017-04-21] MEDS: HALOPERIDOL LACTATE 5 MG/ML AMP IM PRN ×2 (00:28→08:46)
[2017-04-21] MEDS: traZODone HCL 50 MG TAB PO PRN (01:28)
[2017-04-21 06:15] VITALS: BP 136/77; PULSE 87; RESP 18; TEMP 97.6; O2SAT 99
[2017-04-21] MEDS: DOCUSATE SODIUM 100 MG CAP PO SCH ×3 (08:11→20:54)
[2017-04-21] MEDS: HALOPERIDOL 5 MG TAB PO PRN (08:11)
[2017-04-21] MEDS: PANTOPRAZOLE SOD 40 MG DELAYED RELEASE TAB PO SCH ×2 (08:11→08:24)
[2017-04-21] MEDS: BENZTROPINE MESYLATE 1 MG TAB PO SCH ×3 (08:11→20:53)
[2017-04-21] MEDS: ARIPiprazole 15 MG TAB PO SCH ×3 (08:11→20:52)
[2017-04-21] MEDS: ASPIRIN 325 MG TAB PO SCH ×2 (08:11→08:24)
[2017-04-21] MEDS: LITHIUM CARBONATE 300 MG SLOW RELEASE TAB PO SCH ×3 (08:12→20:54)
[2017-04-21] MEDS: metFORMIN HCL 500 MG TAB PO SCH ×3 (08:13→17:43)
[2017-04-21] MEDS: NICOTINE 21 MG/24 HR PATCH T-DERMAL SCH (08:22)
[2017-04-21] MEDS: ZIPRASIDONE MESYLATE 20 MG VIAL IM PRN ×2 (08:45→20:54)
[2017-04-21] MEDS: REMOVE OLD PATCH T-DERMAL SCH (08:46)
--- NOTE | 2017-04-21 09:34 | HHI.PYPN ---
Subjective Remarks Patient seen and examined with counselor and nurse. Chart reviewed. Case discussed with nursing staff. Nurse reports ongoing issues with periodic agitation. On my examination today, the patient remains fairly negativistic. He denies any AVH but appears internally stimulated. Speaks little. Says, "I already got my papers," unclear what this means. No evidence side effects from medications. No physical complaints. Review of Systems ROS Limitations: Psychotic, Poor Historian Except as stated in HPI: all other systems reviewed are Neg Objective Alert: Yes (not sedated today) [place]: Person Mood: Other (intermittently agitated) Affect: Flat Memory Intact: Comment (not formally assessed) Hallucinations: Auditory (internally stimulated) Delusions: No Delusion Type: Other (none elicited) Suicidal: Ideation (no SI) Homicidal: Ideation (no HI) Insight/Judgment Poor Remarks He does allow physical examination today. No hand tremor, no cogwheeling, no evident dystonia or dyskinesias. No other motor abnormalities noted. Grooming and hygiene poor. Labs Labs reviewed. Vitals/IOs Vital Signs Date Time Temp Pulse Resp B/P Pulse Ox O2 Delivery O2 Flow Rate FiO2 04/21/17 06:15 97.6 87 18 136/77 99 Assessment & Plan Problem List: (1) Schizoaffective disorder, bipolar type ICD Code: F25.0 Assessment & Plan Given ongoing agitation, add a scheduled dose of Haldol 5 mg twice daily to his existing Abilify/lithium regimen. Continue to monitor on the high acuity unit. Continue other medications and care as ordered. Justification for Cont. Inpt. Medication changes in process. Impairment in social function. High risk for decompensation in less restrictive environment. Discharge Planning Pending psychiatric stabilization. Request HC Surrog/Guard Advoc?: Yes Shawn Parikh MD Apr 21, 2017 09:34
[2017-04-21] MEDS ORDERED: HALOPERIDOL LACTATE 5 MG/ML AMP IM PRN (09:45)
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
[2017-04-21 18:09] VITALS: BP 129/79; PULSE 74; RESP 18; TEMP 98.3; O2SAT 96
[2017-04-21] MEDS: HALOPERIDOL 5 MG TAB PO SCH (20:53)
[2017-04-21] MEDS: ATORVASTATIN 40 MG TAB PO SCH (20:54)
[2017-04-22 06:10] VITALS: BP 172/77; PULSE 67; RESP 18; TEMP 97.2; O2SAT 100
[2017-04-22 06:28] VITALS: BP 138/82
[2017-04-22] MEDS: REMOVE OLD PATCH T-DERMAL SCH (09:00)
[2017-04-22] MEDS: NICOTINE 21 MG/24 HR PATCH T-DERMAL SCH (09:00)
[2017-04-22] MEDS: HALOPERIDOL 5 MG TAB PO SCH ×2 (09:00→21:00)
[2017-04-22] MEDS: ARIPiprazole 15 MG TAB PO SCH ×2 (09:00→21:00)
[2017-04-22] MEDS: ASPIRIN 325 MG TAB PO SCH (09:36)
[2017-04-22] MEDS: DOCUSATE SODIUM 100 MG CAP PO SCH ×2 (09:36→21:02)
[2017-04-22] MEDS: metFORMIN HCL 500 MG TAB PO SCH ×2 (09:36→17:27)
[2017-04-22] MEDS: PANTOPRAZOLE SOD 40 MG DELAYED RELEASE TAB PO SCH (09:37)
[2017-04-22] MEDS: LITHIUM CARBONATE 300 MG SLOW RELEASE TAB PO SCH ×2 (09:38→21:02)
[2017-04-22] MEDS: BENZTROPINE MESYLATE 1 MG TAB PO SCH ×2 (09:38→21:00)
--- NOTE | 2017-04-22 09:50 | HHI.PYPN ---
Subjective Remarks Patient seen and examined. Chart reviewed. Case discussed in treatment team. On my examination today, the patient is sitting in the day area. He remains fairly negativistic and his thought process is disorganized. He remains irritable and balls up his fists when I try to engage with him, although he does not strike out. No evident side effects from meds. No physical complaints. Review of Systems ROS Limitations: Psychotic, Poor Historian Except as stated in HPI: all other systems reviewed are Neg Objective Alert: Yes (not sedated today) [place]: Person Mood: Other (irritable) Affect: Restricted Memory Intact: Comment (not formally assessed) Hallucinations: Auditory (remains int stim) Delusions: No Delusion Type: Other (none elicited) Suicidal: Ideation (no SI) Homicidal: Ideation (no HI) Insight/Judgment Poor Remarks No motor abnormalities noted. Grooming and hygiene poor. Labs Labs reviewed. Vitals/IOs Vital Signs Date Time Temp Pulse Resp B/P Pulse Ox O2 Delivery O2 Flow Rate FiO2 04/22/17 06:28 138/82 04/22/17 06:10 97.2 67 18 100 Assessment & Plan Problem List: (1) Schizoaffective disorder, bipolar type ICD Code: F25.0 Assessment & Plan Titrate Haldol to 7.5mg BID PO/IM to target irritability, thought disorganization. Continue Abilify and lithium as ordered. Patient is also on CBZ, added by Dr. Fleming during patient's last admission. CBZ is a CY inducer, which may be resulting in lower concentrations of patient's antipsychotics. If titrating Haldol does not result in rapid reduction in symptomatology, could instead consider tapering CBZ to boost serum levels of antipsychotics without resorting to higher doses. Patient remains too unpredictable at this time for CT as recommended by hospitalist. Continue to monitor on the high acuity unit. Continue other medications at care as ordered. Justification for Cont. Inpt. Impairment in reality construction. Medication changes and process. High risk for decompensation and less restrictive environment. Discharge Planning Pending psychiatric stabilization. Request HC Surrog/Guard Advoc?: Yes Shawn Parikh MD Apr 22, 2017 09:50
--- NOTE | 2017-04-22 13:17 | PD.TTN ---
Present for Treatment Team Treatment Team Staff: Provider (Dr. Parikh), Nurse (Sakina Epstein RN), Psych Therapist (DIXIE Estrada), Occupational Therapist (CHERELLE Alves) Patient Problems 1. Discharge planning 2. Medication compliance 3. Knowledge deficit 4. Lack of coping skills Progress Toward Goals Provider Input: Haldol has been added to pt medication regiment and will be titrated to assist with further stabilization. Nurse Input: Pt appears with irritability, mixed medication compliance, appropriate, disorganized and withdrawn to self. Psych Therapist Input: Pt remains easily agitated, confused, disorganized, uncooperative at times and withdrawn to self. Pt presents with poor insight into condition and with limited coping skills. He struggles to regulate emotions. [facility] will [facility] once discharged. Occupational Therapist Input: Pt isolates and is unable to tolerate groups at this time. Documentation Scribe: DIXIE Estrada Jonathan LMHC Apr 22, 2017 13:17
[2017-04-22] MEDS ORDERED: LIDOCAINE HCL 1% 50 ML VIAL ONE (13:58)
[2017-04-22] MEDS ORDERED: HALOPERIDOL LACTATE 5 MG/ML AMP IM PRN (17:00)
[2017-04-22] MEDS ORDERED: PILL SPLITTER OTHER PRN (17:15)
[2017-04-22 18:08] VITALS: BP 95/61; PULSE 73; RESP 17; TEMP 98.3; O2SAT 96
[2017-04-22] MEDS: ATORVASTATIN 40 MG TAB PO SCH (21:01)
[2017-04-23] MEDS: HALOPERIDOL 5 MG TAB PO PRN ×2 (05:56→10:10)
[2017-04-23 06:08] VITALS: BP 172/70; PULSE 85; RESP 16; TEMP 97.9; O2SAT 95
[2017-04-23] MEDS: BENZTROPINE MESYLATE 1 MG TAB PO SCH ×2 (08:40→21:00)
[2017-04-23] MEDS: HALOPERIDOL 5 MG TAB PO SCH (08:40)
[2017-04-23] MEDS: LITHIUM CARBONATE 300 MG SLOW RELEASE TAB PO SCH ×2 (08:40→21:00)
[2017-04-23] MEDS: metFORMIN HCL 500 MG TAB PO SCH ×2 (08:41→18:00)
[2017-04-23] MEDS: PANTOPRAZOLE SOD 40 MG DELAYED RELEASE TAB PO SCH (08:41)
[2017-04-23] MEDS: DOCUSATE SODIUM 100 MG CAP PO SCH ×2 (08:41→21:00)
[2017-04-23] MEDS: ASPIRIN 325 MG TAB PO SCH (08:41)
[2017-04-23] MEDS: NICOTINE 21 MG/24 HR PATCH T-DERMAL SCH (08:41)
[2017-04-23] MEDS: ARIPiprazole 15 MG TAB PO SCH ×2 (08:42→21:00)
[2017-04-23] MEDS: REMOVE OLD PATCH T-DERMAL SCH (09:00)
--- NOTE | 2017-04-23 10:39 | HHI.PYPN ---
Subjective Remarks Patient seen and examined with counselor. Chart reviewed. Case discussed with nursing staff. Patient getting agitated this morning, required Haldol by mouth 2. I find the patient at the exit door, trying to open it. When I redirect him, he becomes quite agitated and yells, "I feel like a clown inside this room! " He tells me, "I'm gonna kill all the kids and Englishmen." Grabs my badge, retrieved with some difficulty, and tries to grab my rounding list. Affect quite dysphoric. No side effects from medications. No physical complaints. Review of Systems ROS Limitations: Psychotic, Poor Historian Except as stated in HPI: all other systems reviewed are Neg Objective Alert: Yes (not sedated today) [place]: Person Mood: Agitated, Angry Affect: Restricted Memory Intact: Comment (not formally assessed) Hallucinations: Auditory (internally stimulated) Delusions: Yes Delusion Type: Paranoid Suicidal: Ideation (none voiced) Homicidal: Ideation (threats as above) Insight/Judgment Poor Remarks No new motor abnormalities noted Labs Labs reviewed. Vitals/IOs Vital Signs Date Time Temp Pulse Resp B/P Pulse Ox O2 Delivery O2 Flow Rate FiO2 04/23/17 06:08 97.9 85 16 172/70 95 Assessment & Plan Problem List: (1) Schizoaffective disorder, bipolar type ICD Code: F25.0 Assessment & Plan Titrate Haldol to 10 mg twice a day to target psychosis. Taper carbamazepine, which was added for psychiatric indication last admission, as I suspect that this may be inducing metabolism of patient's antipsychotics, and thus lessening their efficacy. Violent/assaultive precautions. Close observation. Some periodic upward excursions of patient's blood pressure, clonidine as needed. Continue to monitor on the high acuity unit. Continue other medications and care as ordered. Justification for Cont. Inpt. Impairment in safety. Impairment in self-care. Impairment in reality construction. High risk for decompensation in less restrictive environment. Discharge Planning Pending psychiatric stabilization Request HC Surrog/Guard Advoc?: Yes Shawn Parikh MD Apr 23, 2017 10:39
[2017-04-23] MEDS ORDERED: cloNIDine HCL 0.1 MG TAB PO PRN (16:45)
[2017-04-23 17:36] VITALS: BP 131/72; PULSE 75; RESP 16; TEMP 97.6; O2SAT 98
[2017-04-23] MEDS: ATORVASTATIN 40 MG TAB PO SCH (21:00)
[2017-04-23] MEDS: HALOPERIDOL 10 MG TAB PO SCH (21:00)
[2017-04-24 05:29] VITALS: BP 162/82; PULSE 83; RESP 18; TEMP 97.5; O2SAT 97
[2017-04-24] MEDS: ARIPiprazole 15 MG TAB PO SCH ×2 (08:03→08:09)
[2017-04-24] MEDS: ASPIRIN 325 MG TAB PO SCH ×2 (08:03→08:09)
[2017-04-24] MEDS: BENZTROPINE MESYLATE 1 MG TAB PO SCH ×2 (08:04→08:08)
[2017-04-24] MEDS: DOCUSATE SODIUM 100 MG CAP PO SCH ×2 (08:04→08:08)
[2017-04-24] MEDS: PANTOPRAZOLE SOD 40 MG DELAYED RELEASE TAB PO SCH ×2 (08:04→08:09)
[2017-04-24] MEDS: HALOPERIDOL 10 MG TAB PO SCH ×2 (08:04→08:08)
[2017-04-24] MEDS: metFORMIN HCL 500 MG TAB PO SCH ×2 (08:04→08:09)
[2017-04-24] MEDS: NICOTINE 21 MG/24 HR PATCH T-DERMAL SCH (08:20)
[2017-04-24] MEDS: REMOVE OLD PATCH T-DERMAL SCH (09:00)
--- NOTE | 2017-04-24 09:11 | HHI.PYPN ---
Subjective Remarks Patient seen and examined with nurse. Chart reviewed. Case discussed with nursing staff. Per nursing staff, patient has been aggressive and grabbing at people. He is redirectable per nursing staff. On my examination today, the patient is sitting in a Jessi chair. He is quite easily agitated and tries to lunge out at nurse and I, albeit unsuccessfully. He remains negativistic. When we try to ask him questions, he replies only "nothing!" No evident side effects from meds. No physical complaints. Review of Systems ROS Limitations: Psychotic, Poor Historian Except as stated in HPI: all other systems reviewed are Neg Objective Alert: Yes [place]: Person Mood: Agitated, Angry, Oppositional Affect: Restricted Memory Intact: Comment (not formally assessed) Hallucinations: Auditory (remains internally preoccupied) Delusions: Yes Delusion Type: Paranoid Suicidal: Ideation (no SI) Homicidal: Ideation (no verbal threats but remains agitated) Insight/Judgment Poor Remarks No new motor abnormalities noted. Grooming and hygiene poor. Labs Labs reviewed. BMP presently pending. Patient was calm enough today to obtain the abdomen/pelvis CT, although the read on this is still pending. Vitals/IOs Vital Signs Date Time Temp Pulse Resp B/P Pulse Ox O2 Delivery O2 Flow Rate FiO2 04/24/17 05:29 97.5 83 18 162/82 97 Assessment & Plan Problem List: (1) Schizoaffective disorder, bipolar type ICD Code: F25.0 Assessment & Plan Continue to taper carbamazepine to 100 mg twice daily with the hopes that this will increase the efficacy of patient's antipsychotic medications by reducing their clearance and increasing serum levels. I will hold off on titrating antipsychotics to avoid excessive sedation in the setting of anticipated decreased clearance, although he does have PRNs available for the management of behaviors if needed. Continue to monitor on the high acuity unit. Continue other medications and care as ordered. Case presented to Wills act court, and the patient was retained on the inpatient unit by the stretcher operator and appointed a guardian advocate through [facility]. Justification for Cont. Inpt. Impairment and safety. Impairment in self-care. Impairment in reality construction. Medication changes in process. High risk for decompensation in less restrictive environment. Discharge Planning Pending psychiatric stabilization. Request HC Surrog/Guard Advoc?: Yes Shawn Parikh MD Apr 24, 2017 09:10
[2017-04-24] MEDS ORDERED: GLUCAGON 1 MG/ML VIAL OTHER PRN (09:45)
[2017-04-24] MEDS ORDERED: DEXTROSE 50% IN WATER 50 ML VIAL(D50) IV PRN (09:45)
[2017-04-24] MEDS: LITHIUM CARBONATE 300 MG SLOW RELEASE TAB PO SCH ×2 (09:51→20:28)
[2017-04-24] MEDS: INSULIN ASPART SUPPLEMENTAL SCALE SQ SCH ×3 (11:00→20:28)
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
[2017-04-24] MEDS ORDERED: IOHEXOL 350 MG/ML 10 ML VIAL (for RAD DIAG) IV ONE (12:06)
[2017-04-24 13:30] LABS: BICARBONATE 23.2 MEQ/L (21.0-32.0)
[2017-04-24 13:32] LABS: POTASSIUM 5.1 MEQ/L (3.5-5.1)
--- NOTE | 2017-04-24 14:10 | RADRPT ---
EXAM DATE/TIME: 04/24/2017 11:40 [place] COMPARISON: No previous studies available for comparison. INDICATIONS : Hematuria IV CONTRAST: 97 cc Omnipaque 350 (iohexol) IV ORAL CONTRAST: No oral contrast ingested. RADIATION DOSE: 5.13 CTDIvol (mGy) MEDICAL HISTORY : Cardiovascular disease. Hypertension. Diabetes SURGICAL HISTORY : Cholecystectomy. ENCOUNTER: Initial ACUITY: 1 day PAIN SCALE: 0/10 LOCATION: Abdomen TECHNIQUE: Volumetric scanning of the abdomen and pelvis was performed. Using automated exposure control and ad justment of the mA and/or kV according to patient size, radiation dose was kept as low as reasonably achievable to obtain optimal diagnostic quality images. DICOM format image data is available electro nically for review and comparison. FINDINGS: LOWER LUNGS: The visualized lower lungs are clear. LIVER: Homogeneous density without lesion. There is no dilation of the biliary tree. Gallbladder is surgica lly absent. SPLEEN: Normal size without lesion. PANCREAS: Calcifications near the pancreatic head may reflect sequela of prior pancreatitis. The pancreas is ot herwise grossly unremarkable. KIDNEYS: Kidneys demonstrate symmetrical enhancement without evidence for hydronephrosis or radiopaque renal c alculi. There are indeterminate density cystic exophytic lesions in the superior pole of the kidneys bilaterally. On the left this measures 1.9 x 1.9 x 1.7 cm. and on the right measures 2.1 x 1.3 x 1.5 cm. Additionally, there are 2 subcentimeter hypodense lesions in the inferior pole of the right kidne y that are too small to characterize. ADRENAL GLANDS: Within normal limits. VASCULAR: There is no aortic aneurysm. BOWEL/MESENTERY: The stomach, small bowel, and colon demonstrate no acute abnormality. There is no free intraperitone al air or fluid. Appendix is visualized and normal in appearance. ABDOMINAL WALL: Within normal limits. RETROPERITONEUM: There is no lymphadenopathy. BLADDER: Bladder is abnormal. There is a large enhancing mass in the posterior right wall of the bladder measu ring 5.3 x 4.5 x 6.6 cm. Bladder is moderately distended. No significant pelvic adenopathy. REPRODUCTIVE: Within normal limits. INGUINAL: There is no lymphadenopathy or hernia. MUSCULOSKELETAL: Left femoral neck fixation hardware in place. No abnormal lytic or blastic bony lesions. CONCLUSION: 1. Abnormal examination. 5.3 x 4.5 x 6.6 cm enhancing right posterior wall bladder mass consistent wi th neoplasm. No associated pelvic adenopathy or definite evidence for distant metastatic disease in t he abdomen or pelvis. 2. Indeterminate density cystic lesions in the superior pole the kidneys bilaterally. Follow up exami nations with ultrasound exam may be performed to document stability as clinically warranted. Familia Peoples MD on April 24, 2017 at 13:55 Board Certified Radiologist. This report was verified electronically.
[2017-04-24 17:41] VITALS: BP 127/77; PULSE 90; RESP 18; TEMP 98.8; O2SAT 96
[2017-04-24 17:43] VITALS: BP 127/77; PULSE 90; RESP 18; TEMP 98.8; O2SAT 96
[2017-04-24] MEDS: CIPROFLOXACIN 500 MG TAB PO SCH (20:26)
[2017-04-24] MEDS: ATORVASTATIN 40 MG TAB PO SCH (20:27)
[2017-04-25 05:57] VITALS: BP 143/76; PULSE 81; RESP 18; TEMP 97.8; O2SAT 99
[2017-04-25] MEDS: INSULIN ASPART SUPPLEMENTAL SCALE SQ SCH ×4 (06:07→20:21)
[2017-04-25] MEDS: DOCUSATE SODIUM 100 MG CAP PO SCH ×2 (08:37→20:39)
[2017-04-25] MEDS: HALOPERIDOL 10 MG TAB PO SCH ×2 (08:37→20:40)
[2017-04-25] MEDS: ASPIRIN 325 MG TAB PO SCH (08:37)
[2017-04-25] MEDS: BENZTROPINE MESYLATE 1 MG TAB PO SCH ×2 (08:38→20:40)
[2017-04-25] MEDS: PANTOPRAZOLE SOD 40 MG DELAYED RELEASE TAB PO SCH (08:38)
[2017-04-25] MEDS: metFORMIN HCL 500 MG TAB PO SCH ×2 (08:38→16:59)
[2017-04-25] MEDS: ARIPiprazole 15 MG TAB PO SCH ×2 (08:38→20:40)
[2017-04-25] MEDS: CIPROFLOXACIN 500 MG TAB PO SCH ×2 (08:38→20:39)
[2017-04-25] MEDS: NICOTINE 21 MG/24 HR PATCH T-DERMAL SCH (08:38)
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
[2017-04-25] MEDS: REMOVE OLD PATCH T-DERMAL SCH (08:53)
[2017-04-25] MEDS: MEGESTROL ACETATE 40 MG TAB PO SCH (08:53)
[2017-04-25] MEDS: LITHIUM CARBONATE 300 MG SLOW RELEASE TAB PO SCH ×2 (08:53→20:40)
--- NOTE | 2017-04-25 10:31 | HHI.PYPN ---
Subjective Remarks Patient seen and examined with counselor and nurse. Chart reviewed. Case discussed with nursing staff. On my examination today, patient sitting in chair in day room. Remains fairly negativistic. He hunches over his water cups on the tray in front of him, as if to prevent us from taking them. He remains internally stimulated and disorganized. He is not aggressive today. No evident side effects from meds. No physical complaints, no complaints of pain. Review of Systems ROS Limitations: Psychotic, Poor Historian Except as stated in HPI: all other systems reviewed are Neg Objective Alert: Yes [place]: Person Mood: Oppositional Affect: Flat Memory Intact: Comment (not formally assessed) Hallucinations: Auditory (int stim) Delusions: Yes Delusion Type: Paranoid Suicidal: Ideation (no SI) Homicidal: Ideation (No HI) Insight/Judgment Poor Remarks No motor abnormalities noted. TP disorganized. Minimal intelligible speech. Labs Test 04/24/17 12:20 Sodium Level 134 MEQ/L Potassium Level 5.1 MEQ/L Chloride Level 103 MEQ/L Carbon Dioxide Level 23.2 MEQ/L Anion Gap 8 MEQ/L Blood Urea Nitrogen 42 MG/DL Creatinine 0.94 MG/DL Estimat Glomerular Filtration 80 ML/MIN Rate Random Glucose 202 MG/DL Calcium Level 10.2 MG/DL Labs reviewed. Mild hyponatremia noted. Vitals/IOs Vital Signs Date Time Temp Pulse Resp B/P Pulse Ox O2 Delivery O2 Flow Rate FiO2 04/25/17 05:57 97.8 81 18 143/76 99 Intake and Output 04/24/17 04/24/17 04/25/17 08:00 16:00 00:00 Intake Total 240 ml 240 ml Balance 240 ml 240 ml Assessment & Plan Problem List: (1) Schizoaffective disorder, bipolar type ICD Code: F25.0 Assessment & Plan Continue to taper CBZ in an effort to reduce metabolism of antipsychotics. Continue Haldol and Abilify as ordered. Continue lithium as ordered. Appreciate urology and hospitalist input. I note plan is for biopsy. If this is c/w malignancy, to consider head imaging to assess for metastasis, especially if patient's psychosis does not return to baseline with psychotropic medication adjustments. Continue to monitor on the inpatient unit. Continue other medications and care as ordered. Justification for Cont. Inpt. Impairment in self-care. Impairment in reality construction. Medication changes in process. High risk for decompensation in less restrictive environment. Discharge Planning Pending psychiatric stabilization. Request HC Surrog/Guard Advoc?: Yes Shawn Parikh MD Apr 25, 2017 10:31
--- NOTE | 2017-04-25 11:59 | PD.CONS ---
HPI Service Urology Consult Requested By Ibeth Gregory Reason for Consult Bladder mass Primary Care Physician [facility] Diagnosis: (1) HLD (hyperlipidemia) ICD Code: E78.5 (2) DM (diabetes mellitus) ICD Code: E11.9 (3) HTN (hypertension) ICD Code: I10 (4) Anemia ICD Code: D64.9 (5) COPD (chronic obstructive pulmonary disease) ICD Code: J44.9 (6) A-fib ICD Code: I48.91 (7) Schizoaffective disorder, bipolar type ICD Code: F25.0 (8) UTI (urinary tract infection) ICD Code: N39.0 History of Present Illness 66-year-old gentleman with history paranoid schizophrenia with behavioral disturbances and early dementia who is presently admitted to the psychiatric vee under the Wills act. Patient has been seen by the medical service since admission for a urinary tract infection and a CT scan of the abdomen and pelvis was ordered. The CT scan demonstrated a greater than 5 cm mass originating off the right bladder wall suspicious for malignancy. A urology consult was placed regarding further recommendations. History was obtained via review of the medical record as I was unable to obtain any history from the patient himself. The patient appeared comfortable and not in any acute distress. Patient does have urinary incontinence and it is unclear whether this is related to the bladder mass, a urinary tract infection or a functional issue. Review of Systems ROS Limitations: Psychotic Except as stated in HPI: all other systems reviewed are Neg Past Family Social History Past Medical History Hyperlipidemia Hypertension Paranoid schizophrenia with behavioral disturbances Early dementia Atrial fibrillation Diabetes mellitus Past Surgical History Some type of abdominal surgery in the past Reported Medications Refer to EMR Allergies: Coded Allergies: Calamine (Verified Allergy, Severe, Rash, 04/13/17) Olanzapine (Verified Adverse Reaction, Severe, THROMBOCYTOPENIA, 04/13/17) Active Ordered Medications Refer to EMR Family History Family history hypercholesterolemia Social History prison smoker No known history of alcohol abuse Physical Exam Vital Signs Date Time Temp Pulse Resp B/P Pulse Ox O2 Delivery O2 Flow Rate FiO2 04/25/17 05:57 97.8 81 18 143/76 99 04/24/17 17:43 98.8 90 18 127/77 96 04/24/17 17:41 98.8 90 18 127/77 96 Physical Exam GENERAL: Psychotic. Appears stated age. Not in any acute distress SKIN: No rashes, ecchymoses or lesions. Cool and dry. HEAD: Atraumatic. Normocephalic. No temporal or scalp tenderness. EYES: Pupils equal round and reactive. Extraocular motions intact. No scleral icterus. No injection or drainage. ENT: Nose without bleeding, purulent drainage or septal hematoma. Throat without erythema, tonsillar hypertrophy or exudate. Uvula midline. Airway patent. NECK: Trachea midline. No JVD or lymphadenopathy. Supple, nontender, no meningeal signs. HEART: RRR no murmurs LUNGS: Clear to auscultation and percussion GASTROINTESTINAL: Abdomen soft, non-tender, nondistended. No hepato-splenomegaly , or palpable masses. No guarding. GENITOURINARY: No CVA tenderness MUSCULOSKELETAL: Extremities without clubbing, cyanosis, or edema. No joint tenderness, effusion, or edema noted. No calf tenderness. Negative Homans sign bilaterally. NEUROLOGICAL: Awake and alert. Nonverbal. Lab results reviewed: Yes Laboratory Tests Test 04/24/17 12:20 Sodium Level 134 Potassium Level 5.1 Chloride Level 103 Carbon Dioxide Level 23.2 Anion Gap 8 Blood Urea Nitrogen 42 Creatinine 0.94 Estimat Glomerular Filtration 80 Rate Random Glucose 202 Calcium Level 10.2 Result Diagram: 04/24/17 1220 Personally reviewed images: Yes Imaging Last Impressions Abdomen/Pelvis CT 04/21/17 0000 Signed Impressions: Service Date/Time: April 11:40 - CONCLUSION: 1. Abnormal examination. 5.3 x 4.5 x 6.6 cm enhancing right posterior wall bladder mass consistent with neoplasm. No associated pelvic adenopathy or definite evidence for distant metastatic disease in the abdomen or pelvis. 2. Indeterminate density cystic lesions in the superior pole the kidneys bilaterally. Follow up examinations with ultrasound exam may be performed to document stability as clinically warranted. Familia Peoples MD Assessment and Plan Assessment and Plan Urologic impression: Greater than 5 cm mass lesion originating off the right bladder wall suspicious for malignancy Recommendations: #1 patient will require cystoscopic evaluation with biopsy #2 the patient will be transferred [place] a [place] [facility] soon, then [facility] workup [facility] #3 will tentatively schedule the patient for cystoscopy with bladder biopsy to be performed within the next several weeks (in the event that the patient is not transferred to a [place] hospital in the interim). Problem Qualifiers (1) UTI (urinary tract infection): Qualified Code: N39.0 - Urinary tract infection with hematuria, site unspecified Marin Dockery MD Apr 25, 2017 11:59
[2017-04-25 18:17] VITALS: BP 136/73; PULSE 77; RESP 16; TEMP 97.8; O2SAT 97
[2017-04-25] MEDS: ATORVASTATIN 40 MG TAB PO SCH (20:39)
[2017-04-26] MEDS: HALOPERIDOL 5 MG TAB PO PRN (01:35)
[2017-04-26] MEDS: HALOPERIDOL LACTATE 5 MG/ML AMP IM PRN (01:35)
[2017-04-26 05:43] VITALS: BP 170/94; PULSE 68; RESP 18; TEMP 98.3; O2SAT 97
[2017-04-26] MEDS: INSULIN ASPART SUPPLEMENTAL SCALE SQ SCH ×4 (06:30→20:21)
[2017-04-26] MEDS: ASPIRIN 325 MG TAB PO SCH (08:25)
[2017-04-26] MEDS: BENZTROPINE MESYLATE 1 MG TAB PO SCH ×2 (08:25→20:21)
[2017-04-26] MEDS: DOCUSATE SODIUM 100 MG CAP PO SCH ×2 (08:25→20:21)
[2017-04-26] MEDS: PANTOPRAZOLE SOD 40 MG DELAYED RELEASE TAB PO SCH (08:25)
[2017-04-26] MEDS: metFORMIN HCL 500 MG TAB PO SCH ×2 (08:25→17:20)
[2017-04-26] MEDS: LITHIUM CARBONATE 300 MG SLOW RELEASE TAB PO SCH ×2 (08:25→20:21)
[2017-04-26] MEDS: HALOPERIDOL 10 MG TAB PO SCH ×2 (08:25→20:21)
[2017-04-26] MEDS: CIPROFLOXACIN 500 MG TAB PO SCH ×2 (08:26→20:21)
[2017-04-26] MEDS: ARIPiprazole 15 MG TAB PO SCH ×2 (08:27→20:21)
[2017-04-26] MEDS: NICOTINE 21 MG/24 HR PATCH T-DERMAL SCH (08:27)
[2017-04-26] MEDS: MEGESTROL ACETATE 40 MG TAB PO SCH (09:00)
[2017-04-26] MEDS: REMOVE OLD PATCH T-DERMAL SCH (10:01)
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
--- NOTE | 2017-04-26 17:15 | HHI.PYPN ---
Subjective Remarks Patient was seen and case discussed with nursing. Patient remains irritable, aggressive, and internally stimulated. Slams the table when I try to talk to him. He was seen eating dinner in food was all over his clothes. Objective Alert: Yes [place]: Person Mood: Angry, Oppositional Affect: Flat Memory Intact: Comment (not formally assessed) Hallucinations: Auditory (int stim) Delusions: Yes Delusion Type: Paranoid Suicidal: Ideation (no SI) Homicidal: Ideation (No HI) Insight/Judgment Poor Vitals/IOs Vital Signs Date Time Temp Pulse Resp B/P Pulse Ox O2 Delivery O2 Flow Rate FiO2 04/26/17 05:43 98.3 68 18 170/94 97 Assessment & Plan Problem List: (1) Schizoaffective disorder, bipolar type ICD Code: F25.0 Assessment & Plan Continue current treatment plan Justification for Cont. Inpt. Patient will decompensate in a less restrictive setting Request HC Surrog/Guard Advoc?: Yes Rito Ramos DO Apr 26, 2017 17:15
[2017-04-26 17:44] VITALS: BP 119/59; PULSE 80; RESP 18; TEMP 98; O2SAT 97
[2017-04-26] MEDS: traZODone HCL 50 MG TAB PO PRN (20:21)
[2017-04-26] MEDS: ATORVASTATIN 40 MG TAB PO SCH (20:21)
[2017-04-27] MEDS: HALOPERIDOL 5 MG TAB PO PRN (01:35)
[2017-04-27] MEDS: INSULIN ASPART SUPPLEMENTAL SCALE SQ SCH ×4 (06:34→20:57)
[2017-04-27] MEDS: ARIPiprazole 15 MG TAB PO SCH ×2 (09:00→20:56)
[2017-04-27] MEDS: REMOVE OLD PATCH T-DERMAL SCH (09:00)
[2017-04-27] MEDS: DOCUSATE SODIUM 100 MG CAP PO SCH ×2 (09:17→20:56)
[2017-04-27] MEDS: HALOPERIDOL 10 MG TAB PO SCH ×2 (09:17→20:56)
[2017-04-27] MEDS: NICOTINE 21 MG/24 HR PATCH T-DERMAL SCH (09:17)
[2017-04-27] MEDS: ASPIRIN 325 MG TAB PO SCH (09:17)
[2017-04-27] MEDS: PANTOPRAZOLE SOD 40 MG DELAYED RELEASE TAB PO SCH (09:18)
[2017-04-27] MEDS: metFORMIN HCL 500 MG TAB PO SCH ×2 (09:18→17:34)
[2017-04-27] MEDS: CIPROFLOXACIN 500 MG TAB PO SCH ×2 (09:18→20:56)
[2017-04-27] MEDS: BENZTROPINE MESYLATE 1 MG TAB PO SCH ×2 (09:18→20:56)
[2017-04-27] MEDS: LITHIUM CARBONATE 300 MG SLOW RELEASE TAB PO SCH ×2 (09:18→20:56)
[2017-04-27] MEDS: MEGESTROL ACETATE 40 MG TAB PO SCH (09:18)
--- NOTE | 2017-04-27 14:40 | HHI.PYPN ---
Subjective Remarks Patient was seen and case discussed with nursing. Patient is alert and oriented 1. Patient is not interested in interview, would not answer questions and looks at me blankly area was irritable earlier in the day, throwing his food tray on the floor. He did take his medications per nursing. Not sleeping well Objective Alert: Yes [place]: Person Mood: Angry, Oppositional Affect: Flat Memory Intact: Comment (not formally assessed) Hallucinations: Auditory (not answer) Delusions: Yes Delusion Type: Paranoid (internally stimulated) Suicidal: Ideation (no SI) Homicidal: Ideation (No HI) Insight/Judgment Poor Vitals/IOs Vital Signs Date Time Temp Pulse Resp B/P Pulse Ox O2 Delivery O2 Flow Rate FiO2 04/26/17 17:44 98.0 80 18 119/59 97 Intake and Output 04/26/17 04/26/17 04/27/17 08:00 16:00 00:00 Intake Total 360 ml 360 ml Balance 360 ml 360 ml Assessment & Plan Problem List: (1) Schizoaffective disorder, bipolar type ICD Code: F25.0 Assessment & Plan Continue current treatment plan Justification for Cont. Inpt. Patient would decompensate in a less restrictive setting. Request HC Surrog/Guard Advoc?: Yes Rito Ramos DO Apr 27, 2017 14:40
[2017-04-27 17:47] VITALS: BP 142/77; PULSE 83; RESP 17; TEMP 98.1; O2SAT 97
[2017-04-27] MEDS: ATORVASTATIN 40 MG TAB PO SCH (20:55)
[2017-04-28 05:53] VITALS: BP 151/76; PULSE 76; RESP 18; TEMP 97.6; O2SAT 99
[2017-04-28] MEDS: INSULIN ASPART SUPPLEMENTAL SCALE SQ SCH ×4 (06:28→20:54)
[2017-04-28] MEDS: MEGESTROL ACETATE 40 MG TAB PO SCH (08:38)
[2017-04-28] MEDS: NICOTINE 21 MG/24 HR PATCH T-DERMAL SCH (08:38)
[2017-04-28] MEDS: CIPROFLOXACIN 500 MG TAB PO SCH ×2 (08:38→20:53)
[2017-04-28] MEDS: ASPIRIN 325 MG TAB PO SCH (08:38)
[2017-04-28] MEDS: DOCUSATE SODIUM 100 MG CAP PO SCH ×2 (08:38→20:53)
[2017-04-28] MEDS: PANTOPRAZOLE SOD 40 MG DELAYED RELEASE TAB PO SCH (08:39)
[2017-04-28] MEDS: BENZTROPINE MESYLATE 1 MG TAB PO SCH ×2 (08:39→20:53)
[2017-04-28] MEDS: LITHIUM CARBONATE 300 MG SLOW RELEASE TAB PO SCH ×2 (08:39→20:53)
[2017-04-28] MEDS: HALOPERIDOL 10 MG TAB PO SCH ×2 (08:39→20:53)
[2017-04-28] MEDS: metFORMIN HCL 500 MG TAB PO SCH ×2 (08:39→17:45)
[2017-04-28] MEDS: ARIPiprazole 15 MG TAB PO SCH ×2 (08:39→20:54)
[2017-04-28] MEDS: REMOVE OLD PATCH T-DERMAL SCH (08:40)
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
[2017-04-28] MEDS: HALOPERIDOL 5 MG TAB PO SCH (15:00)
[2017-04-28 18:00] VITALS: BP 123/77; PULSE 86; RESP 18; TEMP 97.7
[2017-04-28] MEDS: ATORVASTATIN 40 MG TAB PO SCH (20:53)
[2017-04-29 06:16] VITALS: BP 136/82; PULSE 90; RESP 18; TEMP 98.2; O2SAT 96
[2017-04-29] MEDS: INSULIN ASPART SUPPLEMENTAL SCALE SQ SCH ×4 (06:43→21:00)
[2017-04-29 08:31] LABS: BICARBONATE 26.8 MEQ/L (21.0-32.0); POTASSIUM 5.3 MEQ/L (3.5-5.1)
[2017-04-29] MEDS: metFORMIN HCL 500 MG TAB PO SCH ×2 (09:00→19:18)
[2017-04-29] MEDS: ASPIRIN 325 MG TAB PO SCH (09:00)
[2017-04-29] MEDS: MEGESTROL ACETATE 40 MG TAB PO SCH (09:00)
[2017-04-29] MEDS: BENZTROPINE MESYLATE 1 MG TAB PO SCH ×3 (09:00→21:00)
[2017-04-29] MEDS: NICOTINE 21 MG/24 HR PATCH T-DERMAL SCH (09:00)
[2017-04-29] MEDS: PANTOPRAZOLE SOD 40 MG DELAYED RELEASE TAB PO SCH (09:00)
[2017-04-29] MEDS: DOCUSATE SODIUM 100 MG CAP PO SCH ×2 (09:00→21:00)
[2017-04-29] MEDS: REMOVE OLD PATCH T-DERMAL SCH (09:00)
[2017-04-29] MEDS: CIPROFLOXACIN 500 MG TAB PO SCH (09:00)
[2017-04-29] MEDS: ARIPiprazole 15 MG TAB PO SCH ×2 (09:00→21:00)
[2017-04-29] MEDS: ZIPRASIDONE MESYLATE 20 MG VIAL IM PRN ×2 (09:30→21:16)
[2017-04-29] MEDS: LITHIUM CARBONATE 300 MG SLOW RELEASE TAB PO SCH ×2 (10:18→21:00)
[2017-04-29] MEDS: HALOPERIDOL 10 MG TAB PO SCH ×2 (10:18→21:00)
--- NOTE | 2017-04-29 11:24 | HHI.PYPN ---
Subjective Remarks Patient seen and examined with counselor and nurse. Chart reviewed. Case discussed in treatment team. PO intake somewhat spotty, has Megace but intermittently non-adherent. On my exam, patient confused and somewhat fearful. He is less negativistic and more communicative but speech is somewhat garbled and nonsensical. Appears internally stimulated. Possibly some mild EPS but no other side effects from meds. No physical complaints. Review of Systems ROS Limitations: Psychotic, Poor Historian Except as stated in HPI: all other systems reviewed are Neg Objective Alert: Yes [place]: Person Mood: Oppositional, Other (fearful) Affect: Restricted Memory Intact: Comment (not formally assessed) Hallucinations: Auditory (remains int stim) Delusions: Yes Delusion Type: Paranoid Suicidal: Ideation (no SI) Homicidal: Ideation (No HI) Insight/Judgment Poor Remarks Mild cogwheeling and stiffness in arm. No dystonias or dyskinesias. TP disorganized. Speech rambling. Labs Test 04/29/17 07:46 Sodium Level 147 MEQ/L Potassium Level 5.3 MEQ/L Chloride Level 109 MEQ/L Carbon Dioxide Level 26.8 MEQ/L Anion Gap 11 MEQ/L Blood Urea Nitrogen 40 MG/DL Creatinine 1.20 MG/DL Estimat Glomerular Filtration 61 ML/MIN Rate Random Glucose 187 MG/DL Calcium Level 10.5 MG/DL Labs reviewed. Hypernatremia and hyperkalemia noted. Decreased GFR noted. Vitals/IOs Vital Signs Date Time Temp Pulse Resp B/P Pulse Ox O2 Delivery O2 Flow Rate FiO2 04/29/17 06:16 98.2 90 18 136/82 96 Intake and Output 04/28/17 04/28/17 04/28/17 07:59 15:59 23:59 Intake Total 120 ml Balance 120 ml Assessment & Plan Problem List: (1) Schizoaffective disorder, bipolar type ICD Code: F25.0 Assessment & Plan Titrate Cogentin to 2mg TID to target EPS. Continue Haldol and Abilify as ordered with corresponding IM backup. Continue lithium, check lithium level given decreasing GFR. Kayexalate x 1. Check CBC and CMP. Check Head CT ( would prefer MRI w/wo contrast but GFR decreased) as patient has not responded to traditionally efficacious therapies and there is concern for possible neoplastic process. Encourage fluids. Ask hospitalist to return to evaluate electrolyte abnormalities and decreased GFR further. Continue to monitor on the inpatient unit. Continue other medications and care as ordered. Justification for Cont. Inpt. Impairment in self-care. Impairment in reality construction. Medication changes. Risk for decompensation. Discharge Planning Pending psychiatric stabilization Request HC Surrog/Guard Advoc?: Yes Shawn Parikh MD Apr 29, 2017 11:24
--- NOTE | 2017-04-29 14:58 | PD.TTN ---
Present for Treatment Team Treatment Team Staff: Provider (Dr. Parikh), Nurse (Lynn Broussard RN), Psych Therapist (DIXIE Estrada), Occupational Therapist (CHERELLE Alves) Patient Problems 1. Discharge planning 2. Medication compliance 3. Knowledge deficit 4. Lack of coping skills Progress Toward Goals Provider Input: Pt Haldol is being titrated at this time. Nurse Input: Pt refused AM medications, presents with altered mental status, irrelevant speech content, disorganized with high violence potential. Psych Therapist Input: Pt remains guarded, confused, disoriented, to be responding to internal stimuli, requiring redirection and with unclear speech. Pt presents with poor insight into condition and need for care. Pt struggles to implement coping skills as a result of current decompensation and as evidenced by his behavior on unit. Pt will be referred for placement in an [facility] as he will require placement after discharge. Occupational Therapist Input: Pt unable to tolerate groups at this time. Pt often reaches out to grab others and requires redirection. Documentation Scribe: DIXIE Estrada Jonathan LMHC Apr 29, 2017 14:58
[2017-04-29] MEDS ORDERED: SODIUM POLYSTYRENE SULFONATE SUSP 15 GM/60 ML CUP PO ONE ×2 (15:00→16:00)
[2017-04-29] MEDS: HALOPERIDOL 5 MG TAB PO SCH (15:00)
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
[2017-04-29 18:14] VITALS: BP 169/80; PULSE 101; RESP 18; TEMP 98.9; O2SAT 96
[2017-04-29] MEDS: ATORVASTATIN 40 MG TAB PO SCH (21:00)
[2017-04-29] MEDS: HALOPERIDOL LACTATE 5 MG/ML AMP IM PRN (21:16)
[2017-04-30 06:16] VITALS: BP 162/90; PULSE 112; RESP 20; TEMP 97; O2SAT 95
[2017-04-30] MEDS: INSULIN ASPART SUPPLEMENTAL SCALE SQ SCH ×4 (06:39→20:55)
[2017-04-30 08:35] LABS: AUTOMATED NEUTROPHIL # 8.9 TH/MM3 (1.8-7.7); BASOPHIL # 0.1 TH/MM3 (0-0.2); BASOPHIL % 0.8 % (0.0-2.0); EOSINOPHIL # 0.8 TH/MM3 (0-0.4); EOSINOPHIL % 6.6 % (0.0-4.0); HEMATOCRIT 42.1 % (39.0-51.0); HEMO FLAGS DIFF FINAL; LYMPH % 11.1 % (9.0-44.0); LYMPHOCYTE # 1.3 TH/MM3 (1.0-4.8); MEAN CELL VOLUME 92.5 FL (80.0-100.0); MEAN CORPUSCULAR HEMOGLOBIN 31.4 PG (27.0-34.0); MONO % 8.3 % (0.0-8.0); NEUT % 73.2 % (16.0-70.0); PLATELET COUNT 329 TH/MM3 (150-450); RED BLOOD COUNT 4.55 MIL/MM3 (4.50-5.90); WHITE BLOOD COUNT 12.1 TH/MM3 (4.0-11.0)
[2017-04-30] MEDS: LITHIUM CARBONATE 300 MG SLOW RELEASE TAB PO SCH ×2 (09:00→20:48)
[2017-04-30] MEDS: REMOVE OLD PATCH T-DERMAL SCH (09:00)
[2017-04-30] MEDS: metFORMIN HCL 500 MG TAB PO SCH ×2 (09:00→18:56)
[2017-04-30] MEDS: MEGESTROL ACETATE 40 MG TAB PO SCH (09:00)
[2017-04-30] MEDS: NICOTINE 21 MG/24 HR PATCH T-DERMAL SCH (09:00)
[2017-04-30] MEDS: PANTOPRAZOLE SOD 40 MG DELAYED RELEASE TAB PO SCH (09:00)
[2017-04-30] MEDS: BENZTROPINE MESYLATE 1 MG TAB PO SCH ×3 (09:00→20:37)
[2017-04-30] MEDS: DOCUSATE SODIUM 100 MG CAP PO SCH ×2 (09:00→20:37)
[2017-04-30] MEDS: ARIPiprazole 15 MG TAB PO SCH ×2 (09:00→20:37)
[2017-04-30] MEDS: HALOPERIDOL 10 MG TAB PO SCH ×2 (09:00→20:37)
[2017-04-30] MEDS: ASPIRIN 325 MG TAB PO SCH (09:00)
[2017-04-30 09:08] LABS: ALKALINE PHOSPHATASE 187 U/L (45-117); ALT (GPT) 41 U/L (12-78); ANION GAP 9 MEQ/L (5-15); AST (GOT) 32 U/L (15-37); BICARBONATE 24.4 MEQ/L (21.0-32.0); BLOOD UREA NITROGEN 46 MG/DL (7-18); CHLORIDE 112 MEQ/L (98-107); GLOMERULAR FILTRATION RATE 70 ML/MIN (>89); POTASSIUM 4.1 MEQ/L (3.5-5.1); SODIUM (NA) 145 MEQ/L (136-145); TOTAL BILIRUBIN ADULT 0.5 MG/DL (0.2-1.0)
--- NOTE | 2017-04-30 09:56 | HHI.PYPN ---
Subjective Remarks Patient seen and examined with counselor and nurse. Chart reviewed. Case discussed with nursing staff. On my examination today, patient sitting in tito chair in day area. He has been set up for breakfast but is simply playing with his food, and he has rolled his hash browns into cylinders. His hygiene is quite poor. He is less negativistic. Thought process disorganized. Speech rambling and difficult to follow. Remains a little irritable but not aggressive. No evident side effects from meds. No physical complaints. Review of Systems ROS Limitations: Psychotic, Poor Historian Except as stated in HPI: all other systems reviewed are Neg Objective Alert: Yes [place]: Person Mood: Anxious Affect: Restricted Memory Intact: Comment (seems impaired on clinical exam) Hallucinations: Auditory (internally preoccupied) Delusions: Yes Delusion Type: Paranoid Suicidal: Ideation (no SI) Homicidal: Ideation (No HI) Insight/Judgment Poor Remarks No motor abnormalities appreciated. TP disorganized. Grooming and hygiene poor. Labs Test 04/30/17 07:37 White Blood Count 12.1 TH/MM3 Red Blood Count 4.55 MIL/MM3 Hemoglobin 14.3 GM/DL Hematocrit 42.1 % Mean Corpuscular Volume 92.5 FL Mean Corpuscular Hemoglobin 31.4 PG Mean Corpuscular Hemoglobin 34.0 % Concent Red Cell Distribution Width 13.0 % Platelet Count 329 TH/MM3 Mean Platelet Volume 8.0 FL Neutrophils (%) (Auto) 73.2 % Lymphocytes (%) (Auto) 11.1 % Monocytes (%) (Auto) 8.3 % Eosinophils (%) (Auto) 6.6 % Basophils (%) (Auto) 0.8 % Neutrophils # (Auto) 8.9 TH/MM3 Lymphocytes # (Auto) 1.3 TH/MM3 Monocytes # (Auto) 1.0 TH/MM3 Eosinophils # (Auto) 0.8 TH/MM3 Basophils # (Auto) 0.1 TH/MM3 CBC Comment DIFF FINAL Differential Comment Sodium Level 145 MEQ/L Potassium Level 4.1 MEQ/L Chloride Level 112 MEQ/L Carbon Dioxide Level 24.4 MEQ/L Anion Gap 9 MEQ/L Blood Urea Nitrogen 46 MG/DL Creatinine 1.06 MG/DL Estimat Glomerular Filtration 70 ML/MIN Rate Random Glucose 153 MG/DL Calcium Level 9.5 MG/DL Total Bilirubin 0.5 MG/DL Aspartate Amino Transf 32 U/L (AST/SGOT) Alanine Aminotransferase 41 U/L (ALT/SGPT) Alkaline Phosphatase 187 U/L Total Protein 7.0 GM/DL Albumin 3.8 GM/DL [place] Level 0.8 MEQ/L Labs reviewed. Mild leukocytosis, no fevers. GFR improved. K wnl. Vitals/IOs Vital Signs Date Time Temp Pulse Resp B/P Pulse Ox O2 Delivery O2 Flow Rate FiO2 04/30/17 06:16 97.0 112 20 162/90 95 Intake and Output 04/29/17 04/29/17 04/30/17 08:00 16:00 00:00 Intake Total 120 ml Balance 120 ml Assessment & Plan Problem List: (1) Schizoaffective disorder, bipolar type ICD Code: F25.0 Assessment & Plan Case taking on more of a delirium/dementia picture. Check TSH/FT4, B12, RPR, ammonia for reversible causes of confusion. Med list reviewed; besides Cogentin , needed for side effect management, minimal deliriogenic meds noted. Too unpredictable for Head CT. Appreciate hospitalist input. Transfer to geropsychiatry unit, patient is quite unsteady per RN and would benefit from additional supervision in this setting. Continue other medications and care as ordered. Justification for Cont. Inpt. Impairment in self-care. Impairment in reality construction. Impairment in social function. High risk for decompensation and less restrictive environment. Discharge Planning Pending psychiatric stabilization. Request HC Surrog/Guard Advoc?: Yes Shawn Parikh MD Apr 30, 2017 09:56
[2017-04-30] MEDS: ZIPRASIDONE MESYLATE 20 MG VIAL IM PRN (11:04)
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
[2017-04-30 15:08] LABS: FREE T4 1.28 NG/DL (0.76-1.46)
[2017-04-30] MEDS: HALOPERIDOL 5 MG TAB PO SCH (15:30)
[2017-04-30] MEDS: traZODone HCL 50 MG TAB PO PRN (20:37)
[2017-04-30] MEDS: ATORVASTATIN 40 MG TAB PO SCH (20:48)
[2017-05-01] MEDS: HALOPERIDOL LACTATE 5 MG/ML AMP IM PRN ×2 (00:37→10:43)
[2017-05-01 06:01] VITALS: BP 130/81; PULSE 110; RESP 18; TEMP 97.4; O2SAT 95
[2017-05-01] MEDS: INSULIN ASPART SUPPLEMENTAL SCALE SQ SCH ×4 (06:17→20:40)
[2017-05-01] MEDS: MEGESTROL ACETATE 40 MG TAB PO SCH (09:00)
[2017-05-01] MEDS: REMOVE OLD PATCH T-DERMAL SCH (09:00)
[2017-05-01] MEDS: ASPIRIN 325 MG TAB PO SCH (09:00)
[2017-05-01] MEDS: LITHIUM CARBONATE 300 MG SLOW RELEASE TAB PO SCH (09:00)
[2017-05-01] MEDS: PANTOPRAZOLE SOD 40 MG DELAYED RELEASE TAB PO SCH (09:00)
[2017-05-01] MEDS: DOCUSATE SODIUM 100 MG CAP PO SCH ×2 (09:00→20:37)
[2017-05-01] MEDS: metFORMIN HCL 500 MG TAB PO SCH (09:00)
[2017-05-01] MEDS: NICOTINE 21 MG/24 HR PATCH T-DERMAL SCH (09:00)
[2017-05-01] MEDS: ARIPiprazole 15 MG TAB PO SCH (09:00)
[2017-05-01] MEDS: BENZTROPINE MESYLATE 1 MG TAB PO SCH (09:00)
[2017-05-01] MEDS: HALOPERIDOL 10 MG TAB PO SCH (09:00)
[2017-05-01] MEDS: ZIPRASIDONE MESYLATE 20 MG VIAL IM PRN (10:43)
--- NOTE | 2017-05-01 12:25 | HHI.PYPN ---
Subjective Remarks Patient seen and examined with nurse. Chart reviewed. Case discussed with nursing staff. Refusing many of his PO meds, some of which cannot be crushed. Patient has been moved to the 2500 unit. He seems much more at ease today. "Jamesy, sana roche'? I love you." Orientation improved. He knows he is at [place] but remains unsure of the date. Much less fearful. Less paranoid and guarded. No evident side effects from medications. Review of Systems ROS Limitations: Psychotic, Poor Historian Except as stated in HPI: all other systems reviewed are Neg Objective Alert: Yes [place]: Person, Place ([place]) Mood: Calm Affect: Euthymic Memory Intact: Comment (remains impaired) Hallucinations: Auditory (internally preoccupied, a little less today) Delusions: Yes Delusion Type: Paranoid (a little less today) Suicidal: Ideation (No SI) Homicidal: Ideation (No HI) Insight/Judgment Poor Remarks No motor abnormalities noted. Grooming and hygiene a little better today. Thought process remains fairly disorganized overall. Labs Labs reviewed. B12 level and TFTs unremarkable. Ammonia level not obtained. RPR pending. Still have not been able to obtain head CT because of level of patient's agitation. Vitals/IOs Vital Signs Date Time Temp Pulse Resp B/P Pulse Ox O2 Delivery O2 Flow Rate FiO2 05/01/17 06:01 97.4 110 18 130/81 95 Assessment & Plan Problem List: (1) Schizoaffective disorder, bipolar type ICD Code: F25.0 (2) Dementia ICD Code: F03.90 Assessment & Plan Patient seems much improved today in the sense that he is less fearful, less confused. He has been refusing the lithium, Abilify and scheduled Cogentin, and I wonder if refraining from taking these meds, especially the Cogentin as it is anticholinergic, has resulted in improvement in mental status. To test this theory, I will adjust regimen to eliminate these agents. D/c Abilify, lithium and Cogentin. Instead, patient will continue on Haldol (consolidated to Haldol liquid 12.5mg PO BID with 10mg IM BID backup) and Geodon 40mg PO BIDPC with 10mg IM BIDPC backup. Patient does have PRN Cogentin for EPS. I will make change his Megace to liquid form. Check CBC, CMP, and ammonia level in the morning. Patient does seem calmer today, hopefully we can get the Head CT. Appreciate hospitalist input. Continue to monitor on the 2500 unit. Continue other medications and care as ordered. Justification for Cont. Inpt. Medication changes and process. Impairment and self-care. High risk for decompensation in less restrictive environment. Discharge Planning Pending stabilization Request HC Surrog/Guard Advoc?: Yes Problem Qualifiers (1) Dementia: Qualified Code: F03.91 - Dementia with behavioral disturbance, unspecified dementia type Shawn Parikh MD May 01, 2017 12:25
[2017-05-01] MEDS ORDERED: LORazepam 2 MG/ML VIAL IM PRN (12:30)
[2017-05-01] MEDS: LORazepam 1 MG TAB PO PRN (14:53)
--- NOTE | 2017-05-01 15:25 | RADRPT ---
EXAM DATE/TIME: 05/01/2017 15:03 [facility] COMPARISON: CT BRAIN W/O CONTRAST, July 14, 2015, 15:15. INDICATIONS : Altered mental status that started a two days ago. RADIATION DOSE: 56.39 CTDIvol (mGy) MEDICAL HISTORY : Hypertension. Dementia. Cardiovascular disease SURGICAL HISTORY : None. ENCOUNTER: Initial ACUITY: 2 days PAIN SCALE: Non-responsive LOCATION: Bilateral cranial TECHNIQUE: Multiple contiguous axial images were obtained of the head. Using automated exposure control and adj ustment of the mA and/or kV according to patient size, radiation dose was kept as low as reasonably a chievable to obtain optimal diagnostic quality images. DICOM format image data is available electro nically for review and comparison. FINDINGS: CEREBRUM: The ventricles are normal for age. There is bilateral cortical atrophy. Chronic white matter changes bilaterally. No evidence of midline shift, mass lesion, hemorrhage or acute infarction. No extra-ax ial fluid collections are seen. No new or significant changes. POSTERIOR FOSSA: The cerebellum and brainstem are intact. The 4th ventricle is midline. The cerebellopontine angle i s unremarkable. EXTRACRANIAL: The visualized portion of the orbits is intact. SKULL: The calvaria is intact. No evidence of skull fracture. CONCLUSION: 1. No focal or acute intracranial hemorrhage. 2. Stable CT scan of the brain with bilateral cortical atrophy and chronic white matter changes abhijit red to 2015. Sam Ruiz MD on May 01, 2017 at 15:22 Board Certified Radiologist. This report was verified electronically.
[2017-05-01] MEDS: ZIPRASIDONE HCL 40 MG CAP PO SCH (17:41)
[2017-05-01] MEDS ORDERED: ZIPRASIDONE MESYLATE 20 MG VIAL IM PRN (18:00)
[2017-05-01 19:37] VITALS: BP 110/71; PULSE 82; RESP 16; TEMP 98.2; O2SAT 96
[2017-05-01] MEDS: ATORVASTATIN 40 MG TAB PO SCH (20:37)
[2017-05-01] MEDS: HALOPERIDOL LACTATE ORAL CONC 10 MG/5 ML CUP PO SCH (20:51)
[2017-05-02 06:09] VITALS: BP 123/80; PULSE 81; RESP 16; TEMP 97.8; O2SAT 94
[2017-05-02] MEDS: INSULIN ASPART SUPPLEMENTAL SCALE SQ SCH ×4 (06:43→21:00)
[2017-05-02] MEDS: REMOVE OLD PATCH T-DERMAL SCH (09:00)
[2017-05-02] MEDS: DOCUSATE SODIUM 100 MG CAP PO SCH (09:00)
[2017-05-02] MEDS: NICOTINE 21 MG/24 HR PATCH T-DERMAL SCH (09:00)
[2017-05-02] MEDS: PANTOPRAZOLE SOD 40 MG DELAYED RELEASE TAB PO SCH (09:00)
[2017-05-02] MEDS: HALOPERIDOL LACTATE ORAL CONC 10 MG/5 ML CUP PO SCH ×2 (10:12→21:00)
[2017-05-02] MEDS: MEGESTROL ACETATE SUSP 400 MG/10 ML CUP PO SCH (10:12)
[2017-05-02] MEDS: ZIPRASIDONE HCL 40 MG CAP PO SCH (10:12)
[2017-05-02] MEDS: ASPIRIN 325 MG TAB PO SCH (10:13)
--- NOTE | 2017-05-02 10:37 | HHI.PYPN ---
Subjective Remarks Patient seen and examined. Chart reviewed. Case discussed with nursing staff. On my exam, patient remains confused but calm. When I ask if he knows the location, he says "I wish I did." Some negativism noted, resists efforts to examine him. Remains internally preoccupied. No side effects from medications. No physical complaints. Review of Systems ROS Limitations: Poor Historian Except as stated in HPI: all other systems reviewed are Neg Objective Alert: Yes [place]: Person Mood: Calm Affect: Flat Memory Intact: Comment (impaired) Hallucinations: Auditory (int stim) Delusions: No Delusion Type: Other (No delusions) Suicidal: Ideation (No SI) Homicidal: Ideation (No HI) Insight/Judgment Poor Remarks TP disorganized. Speech rambling. Grooming and hygiene poor. No motor abnormalities noted, but patient does resist motor exam. Labs Test 05/01/17 15:22 Ammonia LESS THAN 10 MCMOL/L Labs reviewed. Interval worsening of patient's leukocytosis noted. Decreasing GFR noted. Head CT brain window reviewed Last Impressions Head CT 04/29/17 0000 Signed Impressions: Service Date/Time: April 15:03 - CONCLUSION: 1. No focal or acute intracranial hemorrhage. 2. Stable CT scan of the brain with bilateral cortical atrophy and chronic white matter changes compared to 2015. Sam Ruiz MD Abdomen/Pelvis CT 04/21/17 0000 Signed Impressions: Service Date/Time: April 11:40 - CONCLUSION: 1. Abnormal examination. 5.3 x 4.5 x 6.6 cm enhancing right posterior wall bladder mass consistent with neoplasm. No associated pelvic adenopathy or definite evidence for distant metastatic disease in the abdomen or pelvis. 2. Indeterminate density cystic lesions in the superior pole the kidneys bilaterally. Follow up examinations with ultrasound exam may be performed to document stability as clinically warranted. Familia Peoples MD Vitals/IOs Vital Signs Date Time Temp Pulse Resp B/P Pulse Ox O2 Delivery O2 Flow Rate FiO2 05/02/17 06:09 97.8 81 16 123/80 94 Intake and Output 05/01/17 05/01/17 05/02/17 08:00 16:00 00:00 Intake Total 120 ml 240 ml 480 ml Balance 120 ml 240 ml 480 ml Assessment & Plan Problem List: (1) Schizoaffective disorder, bipolar type ICD Code: F25.0 (2) Dementia ICD Code: F03.90 Assessment & Plan Ongoing disorganization (?delirium) in patient with history of primary psychotic illness and neurocognitive disorder, found this admission to have bladder mass suspicious for neoplasia. Given worsening GFR and leukocytosis, will transfer to [facility] unit for further medical workup and management by the hospitalist there. Nurse will inform hospitalist of transfer to follow patient on the [facility] unit. For his underlying psychosis, will titrate Geodon through the weekend to 60mg BIDPC. Continue Haldol as ordered. Holding lithium and Abilify. Continue other medications and care as ordered. Justification for Cont. Inpt. Possible complicating conditions. Medication changes. Impairment in reality construction. Impairment in self-care. High risk for decompensation in less restrictive environment. Discharge Planning Pending stabilization Request HC Surrog/Guard Advoc?: Yes Problem Qualifiers (1) Dementia: Qualified Code: F03.91 - Dementia with behavioral disturbance, unspecified dementia type Shawn Parikh MD May 02, 2017 10:37
[2017-05-02 15:23] LABS: AUTOMATED NEUTROPHIL # 9.9 TH/MM3 (1.8-7.7); BASOPHIL # 0.1 TH/MM3 (0-0.2); BASOPHIL % 0.7 % (0.0-2.0); EOSINOPHIL # 0.7 TH/MM3 (0-0.4); EOSINOPHIL % 5.3 % (0.0-4.0); HEMO FLAGS DIFF FINAL; LYMPH % 9.9 % (9.0-44.0); LYMPHOCYTE # 1.3 TH/MM3 (1.0-4.8); MEAN CELL VOLUME 94.5 FL (80.0-100.0); MEAN CORPUSCULAR HEMOGLOBIN 31.3 PG (27.0-34.0); MEAN CORPUSCULAR HGB CONC 33.1 % (32.0-36.0); MONO % 7.6 % (0.0-8.0); NEUT % 76.5 % (16.0-70.0); PLATELET COUNT 313 TH/MM3 (150-450); RED BLOOD COUNT 4.45 MIL/MM3 (4.50-5.90); RED CELL DISTRIBUTION WIDTH 13.3 % (11.6-17.2)
[2017-05-02 15:52] LABS: BICARBONATE 26.6 MEQ/L (21.0-32.0); POTASSIUM 4.1 MEQ/L (3.5-5.1)
[2017-05-02 16:28] VITALS: BP 117/71; PULSE 82; RESP 16; TEMP 97.5; O2SAT 82
[2017-05-02] MEDS ORDERED: SODIUM CHLORID 0.9% 500 ML INJ 500 ML IV SCH (16:45)
[2017-05-02] MEDS ORDERED: ZIPRASIDONE HCL 40 MG CAP PO SCH (18:00)
[2017-05-02] MEDS: ATORVASTATIN 40 MG TAB PO SCH (21:00)
[2017-05-02] MEDS: DOCUSATE SODIUM 100 MG/10 ML UDC PO SCH (21:00)
[2017-05-02] MEDS: HALOPERIDOL 5 MG TAB PO PRN (22:27)
[2017-05-03 04:58] VITALS: BP 125/70; PULSE 77; RESP 16; TEMP 96.1; O2SAT 94
[2017-05-03] MEDS: INSULIN ASPART SUPPLEMENTAL SCALE SQ SCH ×4 (06:42→21:00)
[2017-05-03] MEDS: ZIPRASIDONE HCL 60 MG CAP PO SCH ×2 (08:16→18:00)
[2017-05-03] MEDS: HALOPERIDOL LACTATE ORAL CONC 10 MG/5 ML CUP PO SCH ×2 (08:16→21:00)
[2017-05-03] MEDS: PANTOPRAZOLE SOD 40 MG DELAYED RELEASE TAB PO SCH (08:16)
[2017-05-03] MEDS: DOCUSATE SODIUM 100 MG/10 ML UDC PO SCH ×2 (08:16→21:00)
[2017-05-03] MEDS: NICOTINE 21 MG/24 HR PATCH T-DERMAL SCH (08:16)
[2017-05-03] MEDS: MEGESTROL ACETATE SUSP 400 MG/10 ML CUP PO SCH (08:16)
[2017-05-03] MEDS: ASPIRIN 325 MG TAB PO SCH (08:16)
[2017-05-03] MEDS: REMOVE OLD PATCH T-DERMAL SCH (08:16)
[2017-05-03 08:43] LABS: AUTOMATED NEUTROPHIL # 8.7 TH/MM3 (1.8-7.7); BASOPHIL % 0.2 % (0.0-2.0); EOSINOPHIL # 0.7 TH/MM3 (0-0.4); EOSINOPHIL % 6.1 % (0.0-4.0); HEMATOCRIT 39.1 % (39.0-51.0); HEMO FLAGS DIFF FINAL; LYMPHOCYTE # 1.5 TH/MM3 (1.0-4.8); MEAN CELL VOLUME 92.9 FL (80.0-100.0); MEAN CORPUSCULAR HEMOGLOBIN 30.9 PG (27.0-34.0); MEAN CORPUSCULAR HGB CONC 33.3 % (32.0-36.0); MONO % 5.8 % (0.0-8.0); NEUT % 74.9 % (16.0-70.0); PLATELET COUNT 269 TH/MM3 (150-450); RED CELL DISTRIBUTION WIDTH 13.1 % (11.6-17.2); WHITE BLOOD COUNT 11.6 TH/MM3 (4.0-11.0)
[2017-05-03 09:06] LABS: BICARBONATE 26.2 MEQ/L (21.0-32.0); POTASSIUM 3.7 MEQ/L (3.5-5.1)
--- NOTE | 2017-05-03 10:07 | HHI.PYPN ---
Subjective Remarks Patient is a 66-year-old man who carries a diagnosis of psychotic disorder bipolar type and dementia who was admitted to inpatient psychiatry unit and transferred to the medical/psychiatry unit for worsening of GFR leukocytosis. After discussion with nursing patient had been eating 75% of his breakfast and noted to have improved oral intake. Patient found sitting in hospital bed noted to have limited interaction with interview. Patient states that he had been eating well and rested well last night denies any perceptual disturbances at this time. Review of Systems Except as stated in HPI: all other systems reviewed are Neg Objective Alert: Yes [place]: Person Mood: Calm Affect: Flat Memory Intact: Comment (impaired) Hallucinations: Auditory (denies at time of interview but noted to be internally preoccupied) Delusions: No Delusion Type: Other (No delusions) Suicidal: Ideation (No SI) Homicidal: Ideation (No HI) Insight/Judgment Poor insight, fair impulse control, poor judgment Labs Labs reviewed. Patient with leukocytosis but appears to be trending down. Test 05/02/17 05/03/17 14:33 08:12 White Blood Count 13.0 TH/MM3 11.6 TH/MM3 Red Blood Count 4.45 MIL/MM3 4.20 MIL/MM3 Hemoglobin 13.9 GM/DL 13.0 GM/DL Hematocrit 42.0 % 39.1 % Mean Corpuscular Volume 94.5 FL 92.9 FL Mean Corpuscular Hemoglobin 31.3 PG 30.9 PG Mean Corpuscular Hemoglobin 33.1 % 33.3 % Concent Red Cell Distribution Width 13.3 % 13.1 % Platelet Count 313 TH/MM3 269 TH/MM3 Mean Platelet Volume 8.2 FL 8.2 FL Neutrophils (%) (Auto) 76.5 % 74.9 % Lymphocytes (%) (Auto) 9.9 % 13.0 % Monocytes (%) (Auto) 7.6 % 5.8 % Eosinophils (%) (Auto) 5.3 % 6.1 % Basophils (%) (Auto) 0.7 % 0.2 % Neutrophils # (Auto) 9.9 TH/MM3 8.7 TH/MM3 Lymphocytes # (Auto) 1.3 TH/MM3 1.5 TH/MM3 Monocytes # (Auto) 1.0 TH/MM3 0.7 TH/MM3 Eosinophils # (Auto) 0.7 TH/MM3 0.7 TH/MM3 Basophils # (Auto) 0.1 TH/MM3 0.0 TH/MM3 CBC Comment DIFF FINAL DIFF FINAL Differential Comment Sodium Level 143 MEQ/L 141 MEQ/L Potassium Level 4.1 MEQ/L 3.7 MEQ/L Chloride Level 109 MEQ/L 108 MEQ/L Carbon Dioxide Level 26.6 MEQ/L 26.2 MEQ/L Anion Gap 7 MEQ/L 7 MEQ/L Blood Urea Nitrogen 48 MG/DL 29 MG/DL Creatinine 1.17 MG/DL 0.82 MG/DL Estimat Glomerular Filtration 62 ML/MIN 94 ML/MIN Rate Random Glucose 324 MG/DL 311 MG/DL Calcium Level 9.1 MG/DL 8.4 MG/DL Ammonia LESS THAN 10 MCMOL/L Vitals/IOs Vital Signs Date Time Temp Pulse Resp B/P Pulse Ox O2 Delivery O2 Flow Rate FiO2 05/03/17 04:58 96.1 77 16 125/70 94 Intake and Output 05/02/17 05/02/17 05/03/17 08:00 16:00 00:00 Intake Total 120 ml 600 ml 240 ml Balance 120 ml 600 ml 240 ml Assessment & Plan Problem List: (1) Schizoaffective disorder, bipolar type ICD Code: F25.0 (2) Dementia ICD Code: F03.90 Assessment & Plan Patient denied acute complaints at this time, noted to be internally preoccupied throughout interview, although denies any perceptual disturbances. Patient with limited interaction with newswriter. Patient to continue current treatment, continue medical recommendations as per primary medical team as he is currently being followed for current leukocytosis. GFR appears to be improving. Monitor her medication response adverse drug reactions. Continue to encourage patient to improve oral intake. Justification for Cont. Inpt. Patient at risk for further decompensation if at lower level of care Discharge Planning In progress Request HC Surrog/Guard Advoc?: Yes Problem Qualifiers (1) Dementia: Qualified Code: F03.91 - Dementia with behavioral disturbance, unspecified dementia type Jacek Lagunas MD May 03, 2017 10:07
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
[2017-05-03 18:00] VITALS: BP 111/59; PULSE 85; RESP 16; TEMP 98.4; O2SAT 98
[2017-05-03] MEDS: ATORVASTATIN 40 MG TAB PO SCH (21:00)
[2017-05-04 05:12] VITALS: BP 124/56; PULSE 78; RESP 16; TEMP 97.5; O2SAT 97
[2017-05-04] MEDS: INSULIN ASPART SUPPLEMENTAL SCALE SQ SCH ×4 (07:00→22:18)
[2017-05-04] MEDS: ZIPRASIDONE HCL 60 MG CAP PO SCH ×2 (07:52→16:23)
[2017-05-04] MEDS: PANTOPRAZOLE SOD 40 MG DELAYED RELEASE TAB PO SCH (07:52)
[2017-05-04] MEDS: NICOTINE 21 MG/24 HR PATCH T-DERMAL SCH (07:53)
[2017-05-04] MEDS: DOCUSATE SODIUM 100 MG/10 ML UDC PO SCH ×2 (07:53→22:03)
[2017-05-04] MEDS: ASPIRIN 325 MG TAB PO SCH (07:53)
[2017-05-04] MEDS: MEGESTROL ACETATE SUSP 400 MG/10 ML CUP PO SCH (07:53)
[2017-05-04] MEDS: HALOPERIDOL LACTATE ORAL CONC 10 MG/5 ML CUP PO SCH ×2 (07:53→22:03)
[2017-05-04] MEDS: REMOVE OLD PATCH T-DERMAL SCH (07:53)
--- NOTE | 2017-05-04 15:39 | HHI.PYPN ---
Subjective Remarks Patient seen today for psychiatric reevaluation along with nurse in charge, patient is calm and cooperative, participating adequately in conversation, asking for for an opportunity to smoke a [place] red to smoke, he says that he is doing okay today. Patient is just partially oriented in time and place, but this seem to be part of baseline. No agitation or aggressive behavior reported , eating most of his food. Compliant with medications, no significant side effects reported. Review of Systems Other No somatic complaint Objective Alert: Yes [place]: Person Mood: Calm Affect: Flat Memory Intact: Comment (impaired) Hallucinations: Auditory (denies at time of interview but noted to be internally preoccupied) Delusions: No Delusion Type: Other (No delusions) Suicidal: Ideation (No SI) Homicidal: Ideation (No HI) Insight/Judgment Poor Labs Test 05/04/17 07:10 Random Glucose 373 MG/DL Vitals/IOs Vital Signs Date Time Temp Pulse Resp B/P Pulse Ox O2 Delivery O2 Flow Rate FiO2 05/04/17 05:12 97.5 78 16 124/56 97 Intake and Output 05/03/17 05/03/17 05/03/17 07:59 15:59 23:59 Intake Total 969 ml 700 ml 1780 ml Balance 969 ml 700 ml 1780 ml Assessment & Plan Problem List: (1) Schizoaffective disorder, bipolar type Assessment & Plan: Continue current psychotropic regimen. ICD Code: F25.0 (2) Dementia ICD Code: F03.90 Assessment & Plan Estimated LOS: days Justification for Cont. Inpt. Continue psychiatric hospitalization for stabilization, she has an increased risk to decompensate at the lower level of care. Request HC Surrog/Guard Advoc?: Yes Problem Qualifiers (1) Dementia: Qualified Code: F03.91 - Dementia with behavioral disturbance, unspecified dementia type Kyler Mcelroy MD May 04, 2017 15:38
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
[2017-05-04] MEDS: metFORMIN HCL 500 MG TAB PO SCH (16:24)
[2017-05-04 18:00] VITALS: BP 113/66; PULSE 64; RESP 16; TEMP 97.6; O2SAT 97
[2017-05-04] MEDS ORDERED: POVIDONE IODINE 5% (ANTISEPSIS KIT) 4 APPLICATIONS EACH NARE PRN (20:00)
[2017-05-04] MEDS ORDERED: METOPROLOL TARTRATE 25 MG TAB PO PRN (20:00)
[2017-05-04] MEDS ORDERED: CHLORHEXIDINE GLUCONATE 2 % 1 PACK (2 CLOTHS) TOPICAL PRN (20:00)
[2017-05-04] MEDS ORDERED: LACTATED RINGER'S 1000 ML IV PRN (20:00)
[2017-05-04] MEDS ORDERED: SODIUM CHLORID 0.9% 500 ML IV PRN (20:00)
[2017-05-04] MEDS ORDERED: INSULIN DETEMIR 100 UNITS/ML VIAL SQ SCH (21:00)
[2017-05-04] MEDS: ATORVASTATIN 40 MG TAB PO SCH (22:02)
[2017-05-05 04:43] VITALS: BP 123/63; PULSE 63; RESP 15; TEMP 98; O2SAT 95
[2017-05-05] MEDS: INSULIN ASPART SUPPLEMENTAL SCALE SQ SCH ×4 (06:13→21:00)
[2017-05-05] MEDS: metFORMIN HCL 500 MG TAB PO SCH ×2 (09:00→16:41)
[2017-05-05] MEDS: DOCUSATE SODIUM 100 MG/10 ML UDC PO SCH ×2 (09:00→20:51)
[2017-05-05] MEDS: MEGESTROL ACETATE SUSP 400 MG/10 ML CUP PO SCH (09:00)
[2017-05-05] MEDS: NICOTINE 21 MG/24 HR PATCH T-DERMAL SCH (09:00)
[2017-05-05] MEDS: REMOVE OLD PATCH T-DERMAL SCH (09:00)
[2017-05-05] MEDS: PANTOPRAZOLE SOD 40 MG DELAYED RELEASE TAB PO SCH (09:22)
[2017-05-05] MEDS: ASPIRIN 325 MG TAB PO SCH (09:22)
[2017-05-05] MEDS: ZIPRASIDONE HCL 60 MG CAP PO SCH ×2 (09:22→16:41)
[2017-05-05] MEDS: HALOPERIDOL LACTATE ORAL CONC 10 MG/5 ML CUP PO SCH ×2 (09:23→20:51)
[2017-05-05] MEDS ORDERED: INSULIN DETEMIR 100 UNITS/ML VIAL SQ SCH (11:15)
[2017-05-05] MEDS: INSULIN DETEMIR 100 UNITS/ML VIAL SQ SCH ×2 (11:15→21:42)
[2017-05-05] MEDS ORDERED: DEXTROSE 50% IN WATER 50 ML VIAL(D50) IV PRN (11:15)
[2017-05-05] MEDS ORDERED: GLUCAGON 1 MG/ML VIAL OTHER PRN (11:15)
[2017-05-05] MEDS ORDERED: DO NOT ADM ANY ANTICOAGULANT DRUGS PRN (13:31)
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
[2017-05-05 14:24] VITALS: BP 119/66; PULSE 69; RESP 16; TEMP 97.6; O2SAT 98
[2017-05-05] MEDS ORDERED: INSULIN ASPART SUPPLEMENTAL SCALE SQ SCH (16:00)
--- NOTE | 2017-05-05 16:35 | EKG ---
Date Performed: 05/05/2017 Time Performed: 03:17:34 PTAGE: 66 years EKG: Sinus rhythm Normal ECG PREVIOUS TRACING : 12/26/2015 18.07 Since previous tracing, no significant change noted DOCTOR: Axel Merritt Interpretating Date/Time 05/05/2017 16:33:58
[2017-05-05 18:23] VITALS: BP 97/56; PULSE 75; RESP 16; TEMP 97.1; O2SAT 99
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
[2017-05-05] MEDS: ATORVASTATIN 40 MG TAB PO SCH (20:52)
[2017-05-06 05:17] VITALS: BP 109/57; PULSE 68; RESP 16; TEMP 98.5; O2SAT 97
[2017-05-06] MEDS: INSULIN ASPART SUPPLEMENTAL SCALE SQ SCH ×4 (06:34→20:56)
[2017-05-06] MEDS: metFORMIN HCL 500 MG TAB PO SCH ×2 (08:47→17:10)
[2017-05-06] MEDS: HALOPERIDOL LACTATE ORAL CONC 10 MG/5 ML CUP PO SCH ×2 (08:47→21:00)
[2017-05-06] MEDS: ASPIRIN 325 MG TAB PO SCH (08:47)
[2017-05-06] MEDS: DOCUSATE SODIUM 100 MG/10 ML UDC PO SCH ×2 (08:47→20:56)
[2017-05-06] MEDS: ZIPRASIDONE HCL 60 MG CAP PO SCH ×2 (08:47→17:10)
[2017-05-06] MEDS: PANTOPRAZOLE SOD 40 MG DELAYED RELEASE TAB PO SCH (08:47)
[2017-05-06] MEDS: MEGESTROL ACETATE SUSP 400 MG/10 ML CUP PO SCH (08:47)
[2017-05-06] MEDS: REMOVE OLD PATCH T-DERMAL SCH (08:48)
[2017-05-06] MEDS: NICOTINE 21 MG/24 HR PATCH T-DERMAL SCH (08:48)
[2017-05-06] MEDS ORDERED: PANT40TA3 PO (09:58)
[2017-05-06] MEDS ORDERED: LEVEMIR SQ (09:58)
[2017-05-06] MEDS ORDERED: METF500 PO (09:58)
[2017-05-06] MEDS: INSULIN DETEMIR 100 UNITS/ML VIAL SQ SCH ×2 (11:15→20:55)
[2017-05-06] MEDS ORDERED: DEXTROSE 50% IN WATER 50 ML VIAL(D50) IV PRN (16:45)
[2017-05-06] MEDS ORDERED: GLUCAGON 1 MG/ML VIAL OTHER PRN (16:45)
--- NOTE | 2017-05-06 17:26 | HHI.PYPN ---
Subjective Remarks Patient seen for follow-up, chart reviewed. After discussion with nursing staff , patient compliant with medications, pull to IV lines last evening, slept well. Patient seen lying in hospital bed was able To engage in interview. Patient states that he had been feeling "okay" and states that his procedure yesterday went okay. Patient with limited interaction and noted to be very concrete and thought process. Patient denies any perceptual disturbances at this time and asks when he will be discharged. Patient denies SI, HI, AVH or delusions at time of interview. No behavioral disturbances recently. Review of Systems Except as stated in HPI: all other systems reviewed are Neg Objective Alert: Yes [place]: Person Mood: Calm Affect: Flat Memory Intact: Comment (impaired) Hallucinations: Auditory (denies at this time ) Delusions: No Delusion Type: Other (No delusions) Suicidal: Ideation (No SI) Homicidal: Ideation (No HI) Insight/Judgment Limited insight, fair impulse control, limited judgment Vitals/IOs Vital Signs Date Time Temp Pulse Resp B/P Pulse Ox O2 Delivery O2 Flow Rate FiO2 05/06/17 05:17 98.5 68 16 109/57 97 Intake and Output 05/05/17 05/05/17 05/06/17 08:00 16:00 00:00 Intake Total 945 ml Balance 945 ml Assessment & Plan Problem List: (1) Schizoaffective disorder, bipolar type ICD Code: F25.0 (2) Dementia ICD Code: F03.90 Assessment & Plan Patient recently being followed by primary medical team due to bladder mass, had cystoscopy yesterday which patient tolerated well. Patient noted to be very concrete during interview. Denying any perceptual disturbances at this time. Patient continues to be medication compliant with no adverse drug reactions. We'll continue current treatment for now. Will continue to discuss with team for discharge planning. Justification for Cont. Inpt. Patient risk for further decompensation if it lower level of care Discharge Planning In progress Request HC Surrog/Guard Advoc?: Yes Problem Qualifiers (1) Dementia: Qualified Code: F03.91 - Dementia with behavioral disturbance, unspecified dementia type Jacek Lagunas MD May 06, 2017 17:26
[2017-05-06 17:56] VITALS: BP 140/73; PULSE 81; RESP 16; TEMP 97.8; O2SAT 95
[2017-05-06] MEDS: ATORVASTATIN 40 MG TAB PO SCH (20:56)
[2017-05-07 05:56] VITALS: BP 116/57; PULSE 67; RESP 16; TEMP 97.9; O2SAT 98
[2017-05-07] MEDS: INSULIN ASPART SUPPLEMENTAL SCALE SQ SCH ×4 (06:22→20:53)
--- NOTE | 2017-05-07 08:37 | HHI.PYPN ---
Subjective Remarks Patient is seen for follow-up, chart reviewed. After discussion with nursing staff patient has not had any behavioral issues while on the unit. Patient found lying in hospital bed, cooperative interview. Patient states feeling "alright" and was requesting to be allowed to smoke a cigarette and after a discussion with him due to it not being possible patient was noted to be slightly upset. Patient also complaining of being hungry was reassured that his breakfast coming very soon. Patient denies any physical complaints, reports eating and drinking well, denies any issues with urination or bowel movement, reports tolerating medications well, denies any adverse drug reactions. Patient denies any perceptual disturbances at this time. When patient asked where he was living prior to hospitalization patient was unsure of the name of the place. Patient had recent cystoscopy with biopsy and is currently awaiting follow-up with urology. Review of Systems Except as stated in HPI: all other systems reviewed are Neg Objective Alert: Yes [place]: Person Mood: Calm Affect: Other (slightly irritable but reactive.) Memory Intact: Comment (impaired) Hallucinations: Auditory (denies at this time ) Delusions: No Delusion Type: Other (No delusions) Suicidal: Ideation (No SI) Homicidal: Ideation (No HI) Insight/Judgment Poor insight, fair impulse control, a judgment Vitals/IOs Vital Signs Date Time Temp Pulse Resp B/P Pulse Ox O2 Delivery O2 Flow Rate FiO2 05/07/17 05:56 97.9 67 16 116/57 98 Intake and Output 05/06/17 05/06/17 05/07/17 08:00 16:00 00:00 Intake Total 360 ml 1920 ml 2160 ml Balance 360 ml 1920 ml 2160 ml Assessment & Plan Problem List: (1) Schizoaffective disorder, bipolar type ICD Code: F25.0 (2) Dementia ICD Code: F03.90 Assessment & Plan Patient at this time has not had any behavioral issues, denies any perceptual disturbances, recently had a cystoscopy with biopsy and is awaiting follow-up with results and with urology consultation. Patient tolerating medication regimen well with no adverse drug reactions. Justification for Cont. Inpt. Patient risk for decompensation if it lower level of care. Discharge Planning In progress Request HC Surrog/Guard Advoc?: Yes Problem Qualifiers (1) Dementia: Qualified Code: F03.91 - Dementia with behavioral disturbance, unspecified dementia type Jacek Lagunas MD May 07, 2017 08:37
[2017-05-07] MEDS: NICOTINE 21 MG/24 HR PATCH T-DERMAL SCH (09:00)
[2017-05-07] MEDS: INSULIN DETEMIR 100 UNITS/ML VIAL SQ SCH ×2 (09:00→20:34)
[2017-05-07] MEDS: REMOVE OLD PATCH T-DERMAL SCH (09:00)
[2017-05-07] MEDS: INSULIN ASPART 1,000 UNITS/10 ML VIAL SQ SCH ×3 (09:45→18:30)
[2017-05-07] MEDS: HALOPERIDOL LACTATE ORAL CONC 10 MG/5 ML CUP PO SCH ×2 (09:52→20:17)
[2017-05-07] MEDS: MEGESTROL ACETATE SUSP 400 MG/10 ML CUP PO SCH (09:52)
[2017-05-07] MEDS: DOCUSATE SODIUM 100 MG/10 ML UDC PO SCH ×2 (09:52→20:17)
[2017-05-07] MEDS: ASPIRIN 325 MG TAB PO SCH (09:53)
[2017-05-07] MEDS: ZIPRASIDONE HCL 60 MG CAP PO SCH ×2 (09:53→18:00)
[2017-05-07] MEDS: metFORMIN HCL 500 MG TAB PO SCH ×2 (09:53→18:00)
[2017-05-07] MEDS: PANTOPRAZOLE SOD 40 MG DELAYED RELEASE TAB PO SCH (09:53)
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
[2017-05-07 18:00] VITALS: BP 128/61; PULSE 89; RESP 18; TEMP 98.7; O2SAT 96
[2017-05-07] MEDS: ATORVASTATIN 40 MG TAB PO SCH (20:17)
[2017-05-07] MEDS: traZODone HCL 50 MG TAB PO PRN (20:17)
[2017-05-08] MEDS: INSULIN ASPART SUPPLEMENTAL SCALE SQ SCH ×4 (05:38→22:39)
[2017-05-08 06:09] VITALS: BP 135/63; PULSE 74; RESP 18; TEMP 98; O2SAT 98
[2017-05-08] MEDS: MEGESTROL ACETATE SUSP 400 MG/10 ML CUP PO SCH (08:04)
[2017-05-08] MEDS: INSULIN DETEMIR 100 UNITS/ML VIAL SQ SCH ×2 (08:05→22:38)
[2017-05-08] MEDS: NICOTINE 21 MG/24 HR PATCH T-DERMAL SCH (08:08)
[2017-05-08] MEDS: PANTOPRAZOLE SOD 40 MG DELAYED RELEASE TAB PO SCH (08:08)
[2017-05-08] MEDS: metFORMIN HCL 500 MG TAB PO SCH ×2 (08:09→18:06)
[2017-05-08] MEDS: ZIPRASIDONE HCL 60 MG CAP PO SCH ×2 (08:10→18:06)
[2017-05-08] MEDS: ASPIRIN 325 MG TAB PO SCH (08:10)
[2017-05-08] MEDS: DOCUSATE SODIUM 100 MG/10 ML UDC PO SCH ×2 (08:10→22:31)
[2017-05-08] MEDS: REMOVE OLD PATCH T-DERMAL SCH (08:11)
[2017-05-08] MEDS: HALOPERIDOL LACTATE ORAL CONC 10 MG/5 ML CUP PO SCH ×2 (08:57→22:32)
[2017-05-08] MEDS: INSULIN ASPART 1,000 UNITS/10 ML VIAL SQ SCH ×3 (09:06→18:30)
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
--- NOTE | 2017-05-08 17:46 | HHI.PYPN ---
Subjective Remarks Patient seen for follow, chart review. As discussion nursing report patient has been, cooperative, behavior issues while on the unit. Patient seen sitting in hospital chair watching television. Patient states that he wants to be able to go home, reports adhering to medications denying any adverse drug reactions. Patient denies any depressive or manic symptoms, patient denies any perceptual disturbances or delusions. Patient aware that he will likely need urology follow-up due to bladder mass found on imaging. Review of Systems Except as stated in HPI: all other systems reviewed are Neg Objective Alert: Yes [place]: Person Mood: Calm Affect: Other (slightly irritable but reactive.) Memory Intact: Comment (impaired) Hallucinations: Auditory (denies at this time ) Delusions: No Delusion Type: Other (No delusions) Suicidal: Ideation (No SI) Homicidal: Ideation (No HI) Insight/Judgment Limited insight, impulse control and judgment Vitals/IOs Vital Signs Date Time Temp Pulse Resp B/P Pulse Ox O2 Delivery O2 Flow Rate FiO2 05/08/17 06:09 98.0 74 18 135/63 98 Intake and Output 05/07/17 05/07/17 05/07/17 07:59 15:59 23:59 Intake Total 960 ml 1680 ml 1440 ml Output Total 2 ml 11 ml Balance 960 ml 1678 ml 1429 ml Assessment & Plan Problem List: (1) Schizoaffective disorder, bipolar type ICD Code: F25.0 (2) Dementia ICD Code: F03.90 Assessment & Plan Patient this time continues to be adherent to treatment denying any acute psychotic symptoms at this time. Patient pending medical clearance as well as urology follow-up recommendations. Patient pending acceptance was back to his previous living facility. Once confirmations the patient can return and medically clear patient likely be discharged back home. Continue medication regimen, monitor for medication response adverse drug reactions. Supportive psychotherapy provided. Discharge planning in progress Justification for Cont. Inpt. Patient risk for decompensation if at lower level of care Discharge Planning In progress Request HC Surrog/Guard Advoc?: Yes Problem Qualifiers (1) Dementia: Qualified Code: F03.91 - Dementia with behavioral disturbance, unspecified dementia type Jacek Lagunas MD May 08, 2017 17:46
[2017-05-08 18:00] VITALS: BP 130/75; PULSE 84; RESP 18; TEMP 99.1; O2SAT 97
[2017-05-08] MEDS: ATORVASTATIN 40 MG TAB PO SCH (22:31)
[2017-05-09 06:02] VITALS: BP 97/53; PULSE 80; RESP 16; TEMP 98.9; O2SAT 96
--- NOTE | 2017-05-09 08:57 | HHI.PYPN ---
Subjective Remarks Patient seen for follow-up, chart reviewed. In discussion with nursing staff patient has not had any behavioral issues or night. Patient found lying in hospital bed noted to be slightly irritable stating that he wants guilt go back home. Patient was explained that he is currently pending medical clearance if she recently had cystoscopy with biopsy done by neurology consult service. Patient responding well to current treatment regimen with no behavioral issues. Patient states he slept well last night, reports eating and drinking well, denies any problem with urination a bowel movement, reports tolerating medications well with no adverse drug reactions. Patient aware of a possible discharge if medically cleared. Review of Systems Except as stated in HPI: all other systems reviewed are Neg Objective Alert: Yes [place]: Person Mood: Other (slightly irritable this morning) Affect: Other (congruent with affect) Memory Intact: Comment (impaired) Hallucinations: Auditory (denies at this time ) Delusions: No Delusion Type: Other (No delusions) Suicidal: Ideation (No SI) Homicidal: Ideation (No HI) Insight/Judgment Limited insight, fair impulse control and judgment Vitals/IOs Vital Signs Date Time Temp Pulse Resp B/P Pulse Ox O2 Delivery O2 Flow Rate FiO2 05/09/17 06:02 98.9 80 16 97/53 96 Intake and Output 05/08/17 05/08/17 05/08/17 07:59 15:59 23:59 Intake Total 720 ml 1920 ml 720 ml Balance 720 ml 1920 ml 720 ml Assessment & Plan Problem List: (1) Schizoaffective disorder, bipolar type ICD Code: F25.0 (2) Dementia ICD Code: F03.90 Assessment & Plan Estimated LOS: 2-3 days. Patient at this time continues to deny any acute psychotic symptoms, tolerating medication regimen well. Patient currently being followed by medical team and neurology service. If medically cleared patient will likely be discharged back to his living facility. Waiting for confirmation from living facility to return. Continue current treatment. Discharge planning in progress Justification for Cont. Inpt. Patient at risk for further decompensation if at lower level of care. Discharge Planning In progress Request HC Surrog/Guard Advoc?: Yes Problem Qualifiers (1) Dementia: Qualified Code: F03.91 - Dementia with behavioral disturbance, unspecified dementia type Jacek Lagunas MD May 09, 2017 08:57
[2017-05-09] MEDS: NICOTINE 21 MG/24 HR PATCH T-DERMAL SCH (09:00)
[2017-05-09] MEDS: REMOVE OLD PATCH T-DERMAL SCH (09:00)
[2017-05-09] MEDS: INSULIN ASPART 1,000 UNITS/10 ML VIAL SQ SCH ×3 (09:27→17:01)
[2017-05-09] MEDS: INSULIN DETEMIR 100 UNITS/ML VIAL SQ SCH ×2 (09:28→21:11)
[2017-05-09] MEDS: metFORMIN HCL 500 MG TAB PO SCH ×2 (09:28→18:13)
[2017-05-09] MEDS: MEGESTROL ACETATE SUSP 400 MG/10 ML CUP PO SCH (09:28)
[2017-05-09] MEDS: PANTOPRAZOLE SOD 40 MG DELAYED RELEASE TAB PO SCH (09:29)
[2017-05-09] MEDS: ASPIRIN 325 MG TAB PO SCH (09:29)
[2017-05-09] MEDS: DOCUSATE SODIUM 100 MG/10 ML UDC PO SCH ×2 (09:29→20:40)
[2017-05-09] MEDS: HALOPERIDOL LACTATE ORAL CONC 10 MG/5 ML CUP PO SCH ×2 (09:29→20:40)
[2017-05-09] MEDS: ZIPRASIDONE HCL 60 MG CAP PO SCH ×2 (09:29→18:13)
[2017-05-09] MEDS: INSULIN ASPART SUPPLEMENTAL SCALE SQ SCH ×4 (09:30→21:09)
[2017-05-09] MEDS ORDERED: NOVOLOGP2 SQ (12:00)
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
[2017-05-09 17:27] VITALS: BP 114/63; PULSE 63; RESP 16; TEMP 98.5; O2SAT 97
[2017-05-09] MEDS: ATORVASTATIN 40 MG TAB PO SCH (20:41)
[2017-05-10 06:10] VITALS: BP 117/62; PULSE 83; RESP 16; TEMP 98.6; O2SAT 96
[2017-05-10] MEDS: INSULIN ASPART 1,000 UNITS/10 ML VIAL SQ SCH ×3 (08:00→17:00)
[2017-05-10] MEDS: INSULIN ASPART SUPPLEMENTAL SCALE SQ SCH ×4 (08:00→21:00)
[2017-05-10] MEDS: REMOVE OLD PATCH T-DERMAL SCH (09:00)
[2017-05-10] MEDS: INSULIN DETEMIR 100 UNITS/ML VIAL SQ SCH ×2 (09:00→21:00)
--- NOTE | 2017-05-10 09:33 | HHI.PYPN ---
Subjective Remarks Patient seen for follow up, chart reviewed. After discussion with nursing staff patient has reported no behavior issues. Patient found lying on hospital bed, calm and cooperative with interview. Patient states that he was recently seen by Mr. Fu from his assisted living facility and states that Mr. Fu be passing by the hospital to pick him up on Friday. Patient reports tolerating medications well, denies any adverse drug reactions, reports eating and drinking well, and states that he has no polyuria patient bowel movement. As the patient at times with Shu she's with urine patient states that he has not been doing that and that he makes it to the bathroom okay. Patient this time denies any acute psychotic symptoms, stable mood lability slightly irritable due to him wanting to go back home. Review of Systems Except as stated in HPI: all other systems reviewed are Neg Objective Alert: Yes [place]: Person Mood: Other (slightly irritable this morning) Affect: Other (congruent with affect) Memory Intact: Comment (impaired) Hallucinations: Other (denies) Delusions: No Delusion Type: Other (No delusions) Suicidal: Ideation (No SI) Homicidal: Ideation (No HI) Insight/Judgment Limited insight, impulse control and judgment Vitals/IOs Vital Signs Date Time Temp Pulse Resp B/P Pulse Ox O2 Delivery O2 Flow Rate FiO2 05/10/17 06:10 98.6 83 16 117/62 96 Intake and Output 05/09/17 05/09/17 05/10/17 08:00 16:00 00:00 Intake Total 360 ml 1200 ml 960 ml Balance 360 ml 1200 ml 960 ml Assessment & Plan Problem List: (1) Schizoaffective disorder, bipolar type ICD Code: F25.0 (2) Dementia ICD Code: F03.90 Assessment & Plan Estimated LOS: 2-3 days. Patient at this time has no behavioral control tolerating medication regimen well. Patient denies having incontinence and that he is able to make it to the bathroom on time. Patient to continue current treatment regimen . Discharge planning in progress Justification for Cont. Inpt. Patient at risk for further decompensation if it lower level of care Discharge Planning In progress Request HC Surrog/Guard Advoc?: Yes Problem Qualifiers (1) Dementia: Qualified Code: F03.91 - Dementia with behavioral disturbance, unspecified dementia type Jacek Lagunas MD May 10, 2017 09:33
[2017-05-10] MEDS: PANTOPRAZOLE SOD 40 MG DELAYED RELEASE TAB PO SCH (09:39)
[2017-05-10] MEDS: metFORMIN HCL 500 MG TAB PO SCH ×2 (09:39→18:00)
[2017-05-10] MEDS: HALOPERIDOL LACTATE ORAL CONC 10 MG/5 ML CUP PO SCH ×2 (09:39→21:41)
[2017-05-10] MEDS: ZIPRASIDONE HCL 60 MG CAP PO SCH ×2 (09:39→18:00)
[2017-05-10] MEDS: DOCUSATE SODIUM 100 MG/10 ML UDC PO SCH ×2 (09:39→21:42)
[2017-05-10] MEDS: MEGESTROL ACETATE SUSP 400 MG/10 ML CUP PO SCH (09:39)
[2017-05-10] MEDS: NICOTINE 21 MG/24 HR PATCH T-DERMAL SCH ×2 (09:40→10:02)
[2017-05-10] MEDS: ASPIRIN 325 MG TAB PO SCH (09:41)
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
[2017-05-10 18:07] VITALS: BP 108/59; PULSE 70; RESP 20; TEMP 98.2; O2SAT 97
[2017-05-10] MEDS: ATORVASTATIN 40 MG TAB PO SCH (21:43)
[2017-05-11 05:22] VITALS: BP 101/56; PULSE 69; RESP 16; TEMP 98.3; O2SAT 98
[2017-05-11] MEDS: HALOPERIDOL LACTATE ORAL CONC 10 MG/5 ML CUP PO SCH ×2 (07:54→21:12)
[2017-05-11] MEDS: MEGESTROL ACETATE SUSP 400 MG/10 ML CUP PO SCH (07:54)
[2017-05-11] MEDS: metFORMIN HCL 500 MG TAB PO SCH ×2 (07:54→18:00)
[2017-05-11] MEDS: DOCUSATE SODIUM 100 MG/10 ML UDC PO SCH ×2 (07:54→21:12)
[2017-05-11] MEDS: ASPIRIN 325 MG TAB PO SCH (07:54)
[2017-05-11] MEDS: REMOVE OLD PATCH T-DERMAL SCH (07:55)
[2017-05-11] MEDS: PANTOPRAZOLE SOD 40 MG DELAYED RELEASE TAB PO SCH (07:55)
[2017-05-11] MEDS: ZIPRASIDONE HCL 60 MG CAP PO SCH ×2 (07:55→18:00)
[2017-05-11] MEDS: INSULIN ASPART SUPPLEMENTAL SCALE SQ SCH ×4 (08:00→21:00)
[2017-05-11] MEDS: INSULIN ASPART 1,000 UNITS/10 ML VIAL SQ SCH ×3 (08:00→16:45)
[2017-05-11] MEDS: LORazepam 1 MG TAB PO PRN (08:06)
[2017-05-11] MEDS: INSULIN DETEMIR 100 UNITS/ML VIAL SQ SCH ×2 (09:00→21:00)
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
[2017-05-11] MEDS ORDERED: GLUCAGON 1 MG/ML VIAL OTHER PRN (14:45)
[2017-05-11] MEDS ORDERED: DEXTROSE 50% IN WATER 50 ML VIAL(D50) IV PRN (14:45)
[2017-05-11 17:52] VITALS: BP 90/45; PULSE 76; RESP 17; TEMP 98.1; O2SAT 96
--- NOTE | 2017-05-11 18:23 | HHI.PYPN ---
Subjective Remarks Patient seen for follow-up, chart reviewed. After discussion with nursing staff , patient has not had any behavioral issues and has not been urinating in bed. Patient found lying on hospital bed, calm and cooperative with interview, states that he is looking forward to going back home tomorrow. He states that Mr. Fu will be coming to pick him up. Patient denies any physical complaints at this time, tolerating medications well, denies any ADRs, denies any acute psychotic symptoms at this time. Review of Systems Except as stated in HPI: all other systems reviewed are Neg Objective Alert: Yes [place]: Person Mood: Calm Affect: Appropriate Memory Intact: Comment (impaired) Hallucinations: Other (denies) Delusions: No Delusion Type: Other (No delusions) Suicidal: Ideation (No SI) Homicidal: Ideation (No HI) Insight/Judgment limited insight, fair impulse control, fair judgement Labs Date/Time Source Procedure Growth Status 04/13/17 23:00 Urine Random Urine Urine Culture - Final Klebsiella Pneumoniae Complete Vitals/IOs Vital Signs Date Time Temp Pulse Resp B/P (MAP) Pulse Ox O2 Delivery O2 Flow Rate FiO2 05/11/17 17:52 98.1 76 17 90/45 (60) 96 Intake and Output 05/11/17 05/11/17 05/11/17 07:59 15:59 23:59 Intake Total 480 ml 1200 ml Balance 480 ml 1200 ml Assessment & Plan Problem List: (1) Schizoaffective disorder, bipolar type ICD Codes: F25.0 - Schizoaffective disorder, bipolar type Status: Acute (2) Dementia ICD Codes: F03.90 - Dementia Status: Chronic Assessment & Plan Estimated LOS: 2-3 days. Patient at this time continues with consistent euthymic mood, no acute psychotic symptoms. Continue current treatment. Awaiting for his living facility to take him back. Justification for Cont. Inpt. Patient at risk for further decompensation if at lower level of care. Discharge Planning In progress Request HC Surrog/Guard Advoc?: Yes Problem Qualifiers (1) Dementia: Jacek Lagunas MD May 11, 2017 18:22
[2017-05-11] MEDS: ATORVASTATIN 40 MG TAB PO SCH (21:12)
[2017-05-12 06:25] VITALS: BP 90/55; PULSE 64; RESP 16; TEMP 98.6; O2SAT 94
[2017-05-12] MEDS: INSULIN ASPART SUPPLEMENTAL SCALE SQ SCH ×2 (07:00→11:00)
[2017-05-12] MEDS: INSULIN ASPART 1,000 UNITS/10 ML VIAL SQ SCH ×2 (08:00→12:00)
[2017-05-12] MEDS: HALOPERIDOL LACTATE ORAL CONC 10 MG/5 ML CUP PO SCH (08:30)
[2017-05-12] MEDS: MEGESTROL ACETATE SUSP 400 MG/10 ML CUP PO SCH (08:30)
[2017-05-12] MEDS: DOCUSATE SODIUM 100 MG/10 ML UDC PO SCH (08:31)
[2017-05-12] MEDS: PANTOPRAZOLE SOD 40 MG DELAYED RELEASE TAB PO SCH (08:32)
[2017-05-12] MEDS: ZIPRASIDONE HCL 60 MG CAP PO SCH (08:32)
[2017-05-12] MEDS: metFORMIN HCL 500 MG TAB PO SCH (08:32)
[2017-05-12] MEDS: INSULIN DETEMIR 100 UNITS/ML VIAL SQ SCH (08:33)
[2017-05-12] MEDS: NICOTINE 21 MG/24 HR PATCH T-DERMAL SCH (08:34)
[2017-05-12] MEDS: REMOVE OLD PATCH T-DERMAL SCH (08:34)
[2017-05-12] MEDS: ASPIRIN 325 MG TAB PO SCH (09:00)
[2017-05-12] MEDS ORDERED: SODIUM CHLORID 0.9% 500 ML INJ 500 ML IV ONE (10:45)
[2017-05-12 11:28] VITALS: BP 130/67; PULSE 69; RESP 18
[2017-05-12] MEDS ORDERED: MEGE40SU PO (14:54)
[2017-05-12] MEDS ORDERED: BENZ0.5T PO (14:54)
[2017-05-12] MEDS ORDERED: HALO2S PO (14:54)
[2017-05-12] MEDS ORDERED: GEOD60CA PO (14:54)
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
== END 2017-05-12 16:30 | DRG 885 ==
LOC: NEPD 21:35 → NEDA 04-14 11:40 → H250 04-14 14:50 → H270 04-14 21:24 → H250 04-18 22:03 → H270 04-20 04:43 → H250 04-30 20:10 → H4EA 05-02 17:15
PROVIDERS: ADMIT Student in an Organized Health Care Education/Training Program; ATTEND Student in an Organized Health Care Education/Training Program
DX: F25.0 Schizoaffective disorder, bipolar type (principal); G93.40 Encephalopathy, unspecified; E46 Unspecified protein-calorie malnutrition; E87.0 Hyperosmolality and hypernatremia; F03.91 Unspecified dementia, unspecified severity, with behavioral disturbance; I48.91 Unspecified atrial fibrillation; E11.65 Type 2 diabetes mellitus with hyperglycemia; N39.0 Urinary tract infection, site not specified; I10 Essential (primary) hypertension; C67.4 Malignant neoplasm of posterior wall of bladder; B96.1 Klebsiella pneumoniae [K. pneumoniae] as the cause of diseases classified elsewhere; E87.5 Hyperkalemia; J44.9 Chronic obstructive pulmonary disease, unspecified; E78.5 Hyperlipidemia, unspecified; F41.9 Anxiety disorder, unspecified; K21.9 Gastro-esophageal reflux disease without esophagitis; D64.9 Anemia, unspecified; F17.210 Nicotine dependence, cigarettes, uncomplicated; F32.9 Major depressive disorder, single episode, unspecified; Z68.21 Body mass index [BMI] 21.0-21.9, adult; Z79.84 Long term (current) use of oral hypoglycemic drugs; Z91.19 Patient's noncompliance with other medical treatment and regimen
CPT/HCPCS: 70450; 74177; 76937; 80048; 80053; 80061; 80178; 80307; 81001; 82140; 82607; 82947; 82948; 83036; 84439; 84443; 85025; 85027; 86592; 87077; 87086; 87186; 93005; 96372; J0515; J0696; J1630; J1815; J2060; J3486; J7040; J7120; Q9967

== ENCOUNTER → 2017-05-05 | Day surgery (SDC) | payer OTHER ==
[~2017-05-05] MED LIST changes: -ATOR40TA16 PO; +BENZ0.5T PO; -BENZ2TAB PO; +LEVEMIR SQ; -LITH450T PO; +MIDAZOLAM HCL 2 MG/2 ML VIAL ONE; +NEOSTIGMINE 3 MG/3 ML SYR IV ONE; +NOVOLOGP2 SQ; +ONDANSETRON HCL 4 MG/2 ML VIAL IV PUSH ONE; +PHENYLEPH/NS 1000 MCG/10 ML SYR IV ONE; -PRIL20CA9 PO; +PROPOFOL 200 MG/20 ML AMP IV ONE; -SALS500T PO; +[UNRECOGNIZED DRUG - CODE] PO; +ceFAZolin INJ 1,000 MG VIAL IV ONE; +ePHEDrine/NS 25 MG/5 ML SYR IV ONE; +fentaNYL CITRATE 250 MCG/5 ML AMP ONE
--- NOTE | 2017-05-05 13:22 | PD.OP ---
Operative Report Date of Surgery: May 05, 2017 Preoperative Diagnosis: (1) Bladder mass Postoperative Diagnosis: (1) Bladder mass Procedure: Cystoscopy with biopsy of bladder mass Anesthesia: General Surgeon: Marin Dockery Manager Publishing(s): None Operation and Findings: Indication for procedure: Case of a 66-year-old male with schizophrenia who recently underwent a CT scan of the abdomen and discovered to have a greater than 6 cm mass lesion originating from the right bladder wall. Patient presents today for cystoscopic evaluation with possible biopsy of the mass. Operative procedure in detail: Patient was brought to the cystoscopy suite and placed supine on the cystoscopy table. He was then placed under general endotracheal anesthesia. He was then repositioned in the dorsolithotomy position and prepped and draped in normal sterile fashion. After an appropriate time was undertaken I proceeded with cystoscopic evaluation utilizing the rigid cystoscope with a 20 [place] sheath and the 30 lens. The urethra was patent without stricture formation. The prostatic urethra was nonobstructing. Further advancement of the cystoscope within the urinary bladder revealed a large greater than 6 cm frondular mass originating from the right bladder wall obscuring the right ureteral orifice. The flexible cup biopsy forceps was utilized and 2 biopsies of the mass were taken. The biopsy sites were fulgurated with coagulation current using the Bugbee electrode. The bladder was drained of all irrigant fluid and the cystoscope withdrawn. The patient tolerated the procedures without complications and was transferred to the PACU in satisfactory condition. Marin Dockery MD May 05, 2017 13:22
[2017-05-05 13:50] VITALS: TEMP 97.5
[2017-05-05 13:56] VITALS: BP 124/68; PULSE 62; RESP 14; O2SAT 99
== END | disposition home or self-care (01) ==
LOC: HOR 10:58
PROVIDERS: ATTEND Urology
DX: D09.0 Carcinoma in situ of bladder (principal)
CPT/HCPCS: 00910; 52204; 88305; J0690; J2250; J2370; J2405; J2710; J3010; 88307

== ENCOUNTER 2017-06-13 16:24 | Emergency (ER) | payer OTHER ==
[~2017-06-13] VITALS: Ht 170.2 cm; Wt 72.0 kg
[~2017-06-13 16:24] MED LIST changes: +GEOD60CA PO; +HALO2S PO; +MEGE40SU PO; -MIDAZOLAM HCL 2 MG/2 ML VIAL ONE; -NEOSTIGMINE 3 MG/3 ML SYR IV ONE; -ONDANSETRON HCL 4 MG/2 ML VIAL IV PUSH ONE; -PHENYLEPH/NS 1000 MCG/10 ML SYR IV ONE; -PROPOFOL 200 MG/20 ML AMP IV ONE; -ceFAZolin INJ 1,000 MG VIAL IV ONE; -ePHEDrine/NS 25 MG/5 ML SYR IV ONE; -fentaNYL CITRATE 250 MCG/5 ML AMP ONE
[2017-06-13 16:29] VITALS: BP 133/70; PULSE 84; RESP 20; TEMP 98.6; O2SAT 97
[2017-06-13 17:05] LABS: AUTOMATED NEUTROPHIL # 6.9 TH/MM3 (1.8-7.7); BASOPHIL # 0.1 TH/MM3 (0-0.2); BASOPHIL % 1.4 % (0.0-2.0); EOSINOPHIL # 0.4 TH/MM3 (0-0.4); HEMATOCRIT 36.2 % (39.0-51.0); HEMO FLAGS DIFF FINAL; LYMPH % 15.1 % (9.0-44.0); LYMPHOCYTE # 1.5 TH/MM3 (1.0-4.8); MEAN CELL VOLUME 94.6 FL (80.0-100.0); MEAN CORPUSCULAR HEMOGLOBIN 31.6 PG (27.0-34.0); MEAN CORPUSCULAR HGB CONC 33.4 % (32.0-36.0); MONO % 7.9 % (0.0-8.0); NEUT % 71.6 % (16.0-70.0); PLATELET COUNT 300 TH/MM3 (150-450); RED BLOOD COUNT 3.83 MIL/MM3 (4.50-5.90); RED CELL DISTRIBUTION WIDTH 14.4 % (11.6-17.2); WHITE BLOOD COUNT 9.7 TH/MM3 (4.0-11.0)
[2017-06-13 17:45] LABS: ALT (GPT) 22 U/L (12-78); ANION GAP 5 MEQ/L (5-15); AST (GOT) 10 U/L (15-37); BLOOD UREA NITROGEN 7 MG/DL (7-18); CHLORIDE 109 MEQ/L (98-107); GLOMERULAR FILTRATION RATE 111 ML/MIN (>89); SODIUM (NA) 141 MEQ/L (136-145)
[2017-06-13 17:48] LABS: ALKALINE PHOSPHATASE 107 U/L (45-117); TOTAL BILIRUBIN ADULT 0.3 MG/DL (0.2-1.0)
[2017-06-13 17:52] VITALS: BP 139/66; PULSE 79; RESP 16; O2SAT 97
[2017-06-13 19:43] LABS: BACTERIA, URINE RARE /hpf; BLOOD, URINE MOD (NEG); COMMENT (UR) CULT NOT INDICATED; CULTURE IF INDICATED CULT NOT INDICATED; GLUCOSE,URINE NEG (NEG); GRANULAR CAST, URINE 6 /lpf; KETONE, URINE NEG (NEG); NITRITE,URINE NEG (NEG); URINE COLOR YELLOW (YELLW/STRAW)
--- NOTE | 2017-06-13 20:11 | PD ---
HPI Chief Complaint: Psychiatric Symptoms Time Seen by Provider: 17:51 Travel History International Travel<30 days: No Contact w/Intl Traveler<30days: No Traveled to known affect area: No History of Present Illness HPI Patient is a 6 years old. He arrived from [facility] where he was refusing medications, yelling out obscenities, smoking in the building, removing his clothes during activities. For this reason he arrives as a Wills act. He has been seen here before following several episodes and has been admitted to the psychiatry service. At the time of my evaluation he does not answer questions. Review of his medication record shows no new or different medication. Location neuropsychiatric. Severity moderate. PFSH Past Medical History Arthritis: No Asthma: No Atrial Fibrillation: Yes Bipolar Disorder: Yes Anxiety: Yes Depression: Yes Heart Rhythm Problems: Yes Cardiovascular Problems: Yes High Cholesterol: Yes Chest Pain: No Congestive Heart Failure: No COPD: Yes Cerebrovascular Accident: No Dementia: Yes Diabetes: Yes Patient Takes Glucophage: No Diminished Hearing: No Endocrine: Yes Gastrointestinal Disorders: Yes GERD: Yes Genitourinary: No Headaches: No (See EMR) Hiatal Hernia: No Hypertension: Yes Immune Disorder: No Implanted Vascular Access Dvce: No Musculoskeletal: No Neurologic: Yes Psychiatric: Yes (Hx of treatment for Schizoaffective Disorder) Reproductive: No Respiratory: Yes Immunizations Current: Yes Migraines: No Pneumonia: Yes Schizophrenia: Yes Sleep Apnea: No Thyroid Disease: No Triglycerides - High: Yes Ulcer: No PNEUMOCCOCAL Vaccine (Year): 2 Past Surgical History Abdominal Surgery: No Cardiac Surgery: No Ear Surgery: No Endocrine Surgery: Yes (DM) Eye Surgery: No Gynecologic Surgery: No Neurologic Surgery: No Oral Surgery: No Thoracic Surgery: No Other Surgery: Yes Family History Family Hypercholesterolemia: Yes Social History Alcohol Use: No Tobacco Use: Yes (1 PACK PER DAY) Substance Use: No Allergies-Medications (Allergen,Severity, Reaction): Coded Allergies: calamine (Unverified Allergy, Severe, Rash, 06/13/17) olanzapine (Unverified Adverse Reaction, Severe, THROMBOCYTOPENIA, 06/13/17 ) Reported Meds & Prescriptions Reported Meds & Active Scripts Active Active Prescriptions or Reported Medications Unobtainable Review of Systems Except as stated in HPI: all other systems reviewed are Neg General / Constitutional: No: Fever Physical Exam Narrative GENERAL: 66 yo M, NAD, WNWD, uncooperative historian SKIN: Warm and dry. HEAD: Atraumatic. Normocephalic. EYES: Pupils equal and round. No scleral icterus. No injection or drainage. ENT: No nasal bleeding or discharge. Mucous membranes pink and moist. NECK: Trachea midline. No JVD. CARDIOVASCULAR: Regular rate and rhythm. RESPIRATORY: No accessory muscle use. Clear to auscultation. Breath sounds equal bilaterally. GASTROINTESTINAL: Abdomen soft, non-tender, nondistended. Hepatic and splenic margins not palpable. MUSCULOSKELETAL: Extremities without clubbing, cyanosis, or edema. No obvious deformities. NEUROLOGICAL: Awake. Answers some questions. Moving all extremities. PSYCHIATRIC: Uncooperative. Data Data Last Documented VS Vital Signs Date Time Temp Pulse Resp B/P (MAP) Pulse Ox O2 Delivery O2 Flow Rate FiO2 06/13/17 17:52 79 16 139/66 (90) 97 Room Air 06/13/17 16:29 98.6 VS reviewed Orders Orders Complete Blood Count With Diff (06/13/17 16:39) Comprehensive Metabolic Panel (06/13/17 16:39) Urinalysis - C+S If Indicated (06/13/17 16:39) Psych Screen (06/13/17 16:39) Diet Regular Basic (06/13/17 Dinner) Drug Screen, Random Urine (06/13/17 16:39) Labs Laboratory Tests Test 06/13/17 16:50 06/13/17 18:57 White Blood Count 9.7 TH/MM3 Red Blood Count 3.83 MIL/MM3 Hemoglobin 12.1 GM/DL Hematocrit 36.2 % Mean Corpuscular Volume 94.6 FL Mean Corpuscular Hemoglobin 31.6 PG Mean Corpuscular Hemoglobin Concent 33.4 % Red Cell Distribution Width 14.4 % Platelet Count 300 TH/MM3 Mean Platelet Volume 6.6 FL Neutrophils (%) (Auto) 71.6 % Lymphocytes (%) (Auto) 15.1 % Monocytes (%) (Auto) 7.9 % Eosinophils (%) (Auto) 4.0 % Basophils (%) (Auto) 1.4 % Neutrophils # (Auto) 6.9 TH/MM3 Lymphocytes # (Auto) 1.5 TH/MM3 Monocytes # (Auto) 0.8 TH/MM3 Eosinophils # (Auto) 0.4 TH/MM3 Basophils # (Auto) 0.1 TH/MM3 CBC Comment DIFF FINAL Differential Comment Blood Urea Nitrogen 7 MG/DL Creatinine 0.71 MG/DL Random Glucose 155 MG/DL Total Protein 6.7 GM/DL Albumin 3.6 GM/DL Calcium Level 9.2 MG/DL Alkaline Phosphatase 107 U/L Aspartate Amino Transf (AST/SGOT) 10 U/L Alanine Aminotransferase (ALT/SGPT) 22 U/L Total Bilirubin 0.3 MG/DL Sodium Level 141 MEQ/L Potassium Level 4.0 MEQ/L Chloride Level 109 MEQ/L Carbon Dioxide Level 27.0 MEQ/L Anion Gap 5 MEQ/L Estimat Glomerular Filtration Rate 111 ML/MIN Urine Color YELLOW Urine Turbidity CLEAR Urine pH 6.0 Urine Specific [place] 1.008 Urine Protein 100 mg/dL Urine Glucose (UA) NEG mg/dL Urine Ketones NEG mg/dL Urine Occult Blood MOD Urine Nitrite NEG Urine Bilirubin NEG Urine Urobilinogen LESS THAN 2.0 MG/DL Urine Leukocyte Esterase NEG Urine RBC 11 /hpf Urine WBC 2 /hpf Urine Bacteria RARE /hpf Urine Granular Casts 6 /lpf Microscopic Urinalysis Comment CULT NOT INDICATED Urine Opiates Screen NEG Urine Barbiturates Screen NEG Urine Amphetamines Screen NEG Urine Benzodiazepines Screen NEG Urine Cocaine Screen NEG Urine Cannabinoids Screen NEG MDM Medical Decision Making Medical Screen Exam Complete: Yes Emergency Medical Condition: Yes Medical Record Reviewed: Yes Differential Diagnosis Altered mental status/psychosis due to infection/environmental exposure/ metabolic abnormality, polypharmacy, alcohol abuse/intoxication, illicit or prescribed drug abuse, malingering/secondary gain, non-organic psychiatric disease Narrative Course CBC & BMP Diagram 06/13/17 16:50 Total Protein 6.7, Albumin 3.6, Calcium Level 9.2, Alkaline Phosphatase 107, Aspartate Amino Transf (AST/SGOT) 10 L, Alanine Aminotransferase (ALT/SGPT) 22, Total Bilirubin 0.3 Drug screen negative UA: no UTI Pt medically stable. Psychiatry screen ordered. Diagnosis Primary Impression: Agitation Additional Impression: Inappropriate behavior Scripts Unable to Obtain Active Prescriptions or Reported Meds Juan Dover MD Jun 13, 2017 20:11
[2017-06-13] MEDS ORDERED: ASPI325T PO (23:04)
[2017-06-13] MEDS ORDERED: GEOD60CA PO (23:04)
[2017-06-13] MEDS ORDERED: HALO2S PO (23:04)
[2017-06-13] MEDS ORDERED: BENZ0.5T PO (23:04)
[2017-06-13] MEDS ORDERED: METF1000 PO (23:04)
[2017-06-14 06:08] VITALS: BP 134/69; PULSE 69; RESP 16; O2SAT 96
[2017-06-14 08:59] VITALS: BP 141/72; PULSE 67; RESP 20; TEMP 98.5; O2SAT 97
--- NOTE | 2017-06-14 14:43 | PD ---
History of Present Illness Chief Complaint: Psychiatric Symptoms Time Seen by Provider: 14:30 Travel History International Travel<30 Days: No Contact w/Intl Traveler<30days: No Known affected area: No Legal Status Legal Status: Wills Act Wills Act Signed By: AVI WAY History of Present Illness: History of Present Illness HPI Patient is a 66 years old male with history of schizoaffective disorder , dementia with behaviors who is under a Wills Act initiated by physician , non- psychiatric from his residence at [facility]. The BA alleges that the patient has been refusing medications, yelling out obscenities, smoking in the building, removing his clothes during activities. It is unclear as to how long he has been refusing his medications. The patient is known to [facility] [place] and he has had several visits to Ed as well as hospitalizations in our psychiatric unit. He was discharged from the unit on April of this year. Review of his medication record shows no new or different medication. There is no UTI. The patient is seen in main ED. He is awake,alert. He mumbles in nonsensical manner at times . 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 At this time he is not agitated. Nurse does report that he was walking around on the overnight shift . he has not required any ETO's. PFSH Past Medical History Arthritis: No Asthma: No Atrial Fibrillation: Yes Bipolar Disorder: Yes Anxiety: Yes Depression: Yes Heart Rhythm Problems: Yes Cardiovascular Problems: Yes High Cholesterol: Yes Chest Pain: No Congestive Heart Failure: No COPD: Yes Cerebrovascular Accident: No Dementia: Yes Diabetes: Yes Patient Takes Glucophage: No Diminished Hearing: No Endocrine: Yes Gastrointestinal Disorders: Yes GERD: Yes Genitourinary: No Headaches: No (See EMR) Hiatal Hernia: No Hypertension: Yes Immune Disorder: No Implanted Vascular Access Dvce: No Musculoskeletal: No Neurologic: Yes Psychiatric: Yes (Hx of treatment for Schizoaffective Disorder) Reproductive: No Respiratory: Yes Immunizations Current: Yes Migraines: No Pneumonia: Yes Schizophrenia: Yes Sleep Apnea: No Thyroid Disease: No Triglycerides - High: Yes Ulcer: No PNEUMOCCOCAL Vaccine (Year): 2 Past Surgical History Abdominal Surgery: No Cardiac Surgery: No Ear Surgery: No Endocrine Surgery: Yes (DM) Eye Surgery: No Gynecologic Surgery: No Neurologic Surgery: No Oral Surgery: No Thoracic Surgery: No Other Surgery: Yes Psychiatric History Psychiatric History Hx Psychiatric Treatment: Pt has an extensive history of inpatient psychiatric hospitalizations through [facility] with last visit occurring in April of 2017 . He has a history of receiving outpatient psychiatric services through the [facility] and most recently was receiving outpatient services. History of Inpatient Treatment: Yes Guns or firearms in home: No Social History resident of a SNF. Hx Alcohol Use: No Hx Tobacco Use: Yes (1 PACK PER DAY) Hx Substance Use: No Substance Use Type: Alcohol, Nicotine/Cigarettes Other Substances Used: HX ETOH ABUSE/ SUBSTANCE ABUSE IN PAST Hx of Substance Use Treatment: Yes Family Psychiatric History Unable to obtain. Allergies-Medications (Allergen,Severity, Reaction): Coded Allergies: calamine (Unverified Allergy, Severe, Rash, 06/13/17) olanzapine (Unverified Adverse Reaction, Severe, THROMBOCYTOPENIA, 06/13/17 ) Reported Meds & Prescriptions Reported Meds & Active Scripts Active Reported Geodon (Ziprasidone) 60 Mg Cap 60 Mg PO BID Metformin (Metformin HCl) 1,000 Mg Tab 1,000 Mg PO DAILY With a meal Haloperidol Liq (Haloperidol Lactate) 2 Mg/Ml Conc 12.5 Mg PO BID Benztropine (Benztropine Mesylate) 0.5 Mg Tab 2 Mg PO DAILY Aspirin 325 Mg Tab 325 Mg PO DAILY Review of Systems ROS Limitations: Poor Historian Exam Alert: Yes [place]: Person (only to person) Mood: Calm (at present) Speech: Illogical (Mumbles at times) Eye Contact: Indirect Memory Intact: Comment (Not tested) Hallucinations: Other (Does not appear to be responding to internal stimuli. I did observe him responding to the television.) Delusions: No Suicidal: Ideation (Unable to assesss) Homicidal: Ideation (Unable to assess) Insight/Judgement None. Impaired. MDM Medical Decision Making Medical Record Reviewed: Yes Assessment/Plan Patient is a 66 years old male with history of schizoaffective disorder , dementia with behaviors, known to [facility] [place], multiple hospitalizations who is under a Wills Act initiated by non- psychiatric physician from his residence at [facility]. The BA alleges that the patient has been refusing medications, yelling out obscenities, smoking in the building, removing his clothes during activities. It is unclear as to how long he has been refusing his medications. The patient at this time is calm and has not been agitated. He has not required any ETOs. The patient may benefit from IM medication if he refuses his po medications at the correction where he resides. This may help in managing some of the behaviors associated with his dementia. I have provided a prescription for IM Haldol to be administered when he refuses the po Haldol. I have also consulted with provider in ED side and recommend that a prescription for Ativan 0.5 mg po BID, PRN for agitation. The BA has been lifted. He is cleared to return to his SNF with above recommendations . Orders Orders Complete Blood Count With Diff (06/13/17 16:39) Comprehensive Metabolic Panel (06/13/17 16:39) Urinalysis - C+S If Indicated (06/13/17 16:39) Psych Screen (06/13/17 16:39) Diet Regular Basic (06/13/17 Dinner) Drug Screen, Random Urine (06/13/17 16:39) Diet Regular Basic (06/14/17 Lunch) Results Vital Signs Date Time Temp Pulse Resp B/P (MAP) Pulse Ox O2 Delivery O2 Flow Rate FiO2 06/14/17 08:59 98.5 67 20 141/72 (95) 97 06/14/17 06:08 69 16 134/69 (90) 96 Room Air 06/13/17 17:52 79 16 139/66 (90) 97 Room Air 06/13/17 16:29 98.6 84 20 133/70 (91) 97 Laboratory Tests Test 06/13/17 16:50 06/13/17 18:57 White Blood Count 9.7 Red Blood Count 3.83 Hemoglobin 12.1 Hematocrit 36.2 Mean Corpuscular Volume 94.6 Mean Corpuscular Hemoglobin 31.6 Mean Corpuscular Hemoglobin Concent 33.4 Red Cell Distribution Width 14.4 Platelet Count 300 Mean Platelet Volume 6.6 Neutrophils (%) (Auto) 71.6 Lymphocytes (%) (Auto) 15.1 Monocytes (%) (Auto) 7.9 Eosinophils (%) (Auto) 4.0 Basophils (%) (Auto) 1.4 Neutrophils # (Auto) 6.9 Lymphocytes # (Auto) 1.5 Monocytes # (Auto) 0.8 Eosinophils # (Auto) 0.4 Basophils # (Auto) 0.1 CBC Comment DIFF FINAL Differential Comment Blood Urea Nitrogen 7 Creatinine 0.71 Random Glucose 155 Total Protein 6.7 Albumin 3.6 Calcium Level 9.2 Alkaline Phosphatase 107 Aspartate Amino Transf (AST/SGOT) 10 Alanine Aminotransferase (ALT/SGPT) 22 Total Bilirubin 0.3 Sodium Level 141 Potassium Level 4.0 Chloride Level 109 Carbon Dioxide Level 27.0 Anion Gap 5 Estimat Glomerular Filtration Rate 111 Urine Color YELLOW Urine Turbidity CLEAR Urine pH 6.0 Urine Specific [place] 1.008 Urine Protein 100 Urine Glucose (UA) NEG Urine Ketones NEG Urine Occult Blood MOD Urine Nitrite NEG Urine Bilirubin NEG Urine Urobilinogen LESS THAN 2.0 Urine Leukocyte Esterase NEG Urine RBC 11 Urine WBC 2 Urine Bacteria RARE Urine Granular Casts 6 Microscopic Urinalysis Comment CULT NOT INDICATED Urine Opiates Screen NEG Urine Barbiturates Screen NEG Urine Amphetamines Screen NEG Urine Benzodiazepines Screen NEG Urine Cocaine Screen NEG Urine Cannabinoids Screen NEG Diagnosis Primary Impression: Dementia with behavioral problem Additional Impression: Schizoaffective disorder Ruled Out: Agitation, Inappropriate behavior Psychiatrically Cleared: Yes Med/ Other Pt Specific Info: Prescription(s) given Prescriptions Haloperidol Inj (Haloperidol Inj) 5 Mg/Ml Inj 1 ML IM up to BID, PRN for Agitation for 30 Days, #1 BOTTLE 0 Refills Prov: Edwina Bee 06/14/17 Disposition: 03 DISCHARGE TO SNF Condition: Stable Problem Qualifiers Primary Impression: Dementia with behavioral problem Qualified Codes: F03.91 - Unspecified dementia with behavioral disturbance Additional Impression: Schizoaffective disorder Qualified Codes: F25.0 - Schizoaffective disorder, bipolar type Edwina Bee Jun 14, 2017 14:43
[2017-06-14] MEDS ORDERED: HALO5INJ4 IM (15:06)
--- NOTE | 2017-06-14 15:07 | PD ---
Physical Exam Date Seen by Provider: Jun 14, 2017 Time Seen by Provider: 15:04 Narrative Patient is a 66-year-old male presenting to the emergency Department under Wills act due to behavioral issues at the long term. For full history and physical examination please see previous provider's notes. Data Data Last Documented VS Vital Signs Date Time Temp Pulse Resp B/P (MAP) Pulse Ox O2 Delivery O2 Flow Rate FiO2 06/14/17 08:59 98.5 67 20 141/72 (95) 97 06/14/17 06:08 Room Air Orders Orders Complete Blood Count With Diff (06/13/17 16:39) Comprehensive Metabolic Panel (06/13/17 16:39) Urinalysis - C+S If Indicated (06/13/17 16:39) Psych Screen (06/13/17 16:39) Diet Regular Basic (06/13/17 Dinner) Drug Screen, Random Urine (06/13/17 16:39) Diet Regular Basic (06/14/17 Lunch) Labs Laboratory Tests Test 06/13/17 16:50 06/13/17 18:57 White Blood Count 9.7 TH/MM3 Red Blood Count 3.83 MIL/MM3 Hemoglobin 12.1 GM/DL Hematocrit 36.2 % Mean Corpuscular Volume 94.6 FL Mean Corpuscular Hemoglobin 31.6 PG Mean Corpuscular Hemoglobin Concent 33.4 % Red Cell Distribution Width 14.4 % Platelet Count 300 TH/MM3 Mean Platelet Volume 6.6 FL Neutrophils (%) (Auto) 71.6 % Lymphocytes (%) (Auto) 15.1 % Monocytes (%) (Auto) 7.9 % Eosinophils (%) (Auto) 4.0 % Basophils (%) (Auto) 1.4 % Neutrophils # (Auto) 6.9 TH/MM3 Lymphocytes # (Auto) 1.5 TH/MM3 Monocytes # (Auto) 0.8 TH/MM3 Eosinophils # (Auto) 0.4 TH/MM3 Basophils # (Auto) 0.1 TH/MM3 CBC Comment DIFF FINAL Differential Comment Blood Urea Nitrogen 7 MG/DL Creatinine 0.71 MG/DL Random Glucose 155 MG/DL Total Protein 6.7 GM/DL Albumin 3.6 GM/DL Calcium Level 9.2 MG/DL Alkaline Phosphatase 107 U/L Aspartate Amino Transf (AST/SGOT) 10 U/L Alanine Aminotransferase (ALT/SGPT) 22 U/L Total Bilirubin 0.3 MG/DL Sodium Level 141 MEQ/L Potassium Level 4.0 MEQ/L Chloride Level 109 MEQ/L Carbon Dioxide Level 27.0 MEQ/L Anion Gap 5 MEQ/L Estimat Glomerular Filtration Rate 111 ML/MIN Urine Color YELLOW Urine Turbidity CLEAR Urine pH 6.0 Urine Specific [place] 1.008 Urine Protein 100 mg/dL Urine Glucose (UA) NEG mg/dL Urine Ketones NEG mg/dL Urine Occult Blood MOD Urine Nitrite NEG Urine Bilirubin NEG Urine Urobilinogen LESS THAN 2.0 MG/DL Urine Leukocyte Esterase NEG Urine RBC 11 /hpf Urine WBC 2 /hpf Urine Bacteria RARE /hpf Urine Granular Casts 6 /lpf Microscopic Urinalysis Comment CULT NOT INDICATED Urine Opiates Screen NEG Urine Barbiturates Screen NEG Urine Amphetamines Screen NEG Urine Benzodiazepines Screen NEG Urine Cocaine Screen NEG Urine Cannabinoids Screen NEG MDM Medical Record Reviewed: Yes Supervised Visit with UZIEL: No Narrative Course Patient is a 66-year-old male who was brought into the emergency Department under Wills act due [facility]. Patient has a history of dementia. He was seen and evaluated and then subsequent to cleared by the emergency physician. He was then seen and evaluated by psychiatric nurse practitioner who felt his behavioral issues were related to dementia and occasional noncompliance. She will be providing patient with a prescription for IM Haldol. Patient is medically cleared and discharged back to skilled facility. Diagnosis Primary Impression: Agitation Additional Impression: Inappropriate behavior Referrals: Primary Care Physician Patient Instructions: General Instructions Additional Instruction: Follow-up with primary doctor Continue medications as previously prescribed Return to emergency department for any new or worsening symptoms Med/Other Pt SpecificInfo: Prescription(s) given Disposition: 03 DISCHARGE TO SNF Condition: Stable Antoni,Stephanie [facility] Jun 14, 2017 15:07
[2017-06-14 16:00] VITALS: BP 138/79; PULSE 62; RESP 16; O2SAT 96
== END 2017-06-14 16:41 ==
LOC: NEDAMB 16:24
DX: R45.1 Restlessness and agitation (principal); R46.89 Other symptoms and signs involving appearance and behavior; F03.91 Unspecified dementia, unspecified severity, with behavioral disturbance; F25.0 Schizoaffective disorder, bipolar type; E11.9 Type 2 diabetes mellitus without complications; I10 Essential (primary) hypertension; E78.5 Hyperlipidemia, unspecified; F17.200 Nicotine dependence, unspecified, uncomplicated; Z79.84 Long term (current) use of oral hypoglycemic drugs; Z79.899 Other long term (current) drug therapy; Z86.79 Personal history of other diseases of the circulatory system; Z86.59 Personal history of other mental and behavioral disorders; Z87.09 Personal history of other diseases of the respiratory system; Z87.19 Personal history of other diseases of the digestive system; Z86.69 Personal history of other diseases of the nervous system and sense organs
CPT/HCPCS: 80053; 80307; 81001; 85025; 99284

== ENCOUNTER 2017-07-06 09:20 | Inpatient (IN) | payer OTHER ==
[~2017-07-06] VITALS: Ht 180.3 cm; Wt 55.6 kg
[2017-07-06] VITALS (18 sets, daily range): BP systolic 52–106; BP diastolic 48–78; PULSE 69–144; RESP 14–28; TEMP 96–98.4; O2SAT 89–100
[~2017-07-06 09:20] MED LIST changes: -ABIL30TA2 PO; -CARB100C PO; +HALO5INJ4 IM; -LEVEMIR SQ; -LIPI40TA PO; -LITH300T PO; -MEGE40SU PO; +METF1000 PO; -METF500 PO; -NOVOLOGP2 SQ; -PANT40TA3 PO; -TRAZ50TA12 PO; -[UNRECOGNIZED DRUG - CODE] PO
[2017-07-06] MEDS ORDERED: NOREPINEPHRINE 4 MG/4 ML AMP ONE (09:32)
[2017-07-06] MEDS ORDERED: VASOPRESSIN INJ 40 UNITS in DEXTROSE 5% IN WATER 100ML INJ 98 ML IV SCH ×2 (09:37)
[2017-07-06] MEDS ORDERED: SODIUM CHLOR 0.9% 1000 ML INJ 1,000 ML IV ONE ×4 (09:37→12:15)
[2017-07-06] MEDS ORDERED: SODIUM CHLOR 0.9% 1000 ML INJ 400 ML IV ONE (09:37)
[2017-07-06] MEDS ORDERED: EPINEPHrine (1:1000) INJ 2 MG in DEXTROSE 5% IN WATER INJ 248 ML IV PRN ×2 (09:45)
[2017-07-06] MEDS ORDERED: NOREPINEPHRINE-DEXTROSE DRIP 250 ML IV PRN (09:45)
[2017-07-06] MEDS ORDERED: SUCCINYLCHOLINE CHLORIDE 200 MG/10 ML VIAL ONE (09:53)
[2017-07-06] MEDS ORDERED: MIDAZOLAM 100 MG/100 ML INJ 100 ML ONE (09:53)
[2017-07-06] MEDS ORDERED: ETOMIDATE 20 MG/10 ML VIAL ONE (09:53)
[2017-07-06 10:08] LABS: AUTOMATED NEUTROPHIL # 14.5 TH/MM3 (1.8-7.7); BASOPHIL % 0.1 % (0.0-2.0); HEMATOCRIT 47.4 % (39.0-51.0); HEMO FLAGS DIFF FINAL; LYMPH % 4.9 % (9.0-44.0); LYMPHOCYTE # 0.8 TH/MM3 (1.0-4.8); MEAN CELL VOLUME 95.5 FL (80.0-100.0); MEAN CORPUSCULAR HGB CONC 32.5 % (32.0-36.0); MONO % 4.6 % (0.0-8.0); NEUT % 90.4 % (16.0-70.0); PLATELET COUNT 340 TH/MM3 (150-450); RED BLOOD COUNT 4.97 MIL/MM3 (4.50-5.90); RED CELL DISTRIBUTION WIDTH 14.5 % (11.6-17.2)
[2017-07-06 10:15] LABS: APTT (PATIENT) 23.1 SEC (24.3-30.1); PROTHROMBIN TIME - PATIENT 11.6 SEC (9.8-11.6)
[2017-07-06] MEDS ORDERED: PIPERACIL-TAZO 4.5 GM PREMIX 100 ML IV STA (10:21)
[2017-07-06 10:27] LABS: BACTERIA, URINE MANY /hpf; BLOOD, URINE LARGE (NEG); COMMENT (UR) CATH-CULTURE IND; CULTURE IF INDICATED CATH CULTURE IND; GLUCOSE,URINE NEG (NEG); KETONE, URINE TRACE mg/dL (NEG); MUCUS URINE FEW /lpf (OCC); NITRITE,URINE NEG (NEG); PH, URINE 6.5 (5.0-8.5); URINE COLOR YELLOW (YELLW/STRAW)
[2017-07-06 10:28] LABS: ANION GAP 21 MEQ/L (5-15); AST (GOT) 21 U/L (15-37); BICARBONATE 12.4 MEQ/L (21.0-32.0); BLOOD UREA NITROGEN 125 MG/DL (7-18); CHLORIDE 115 MEQ/L (98-107); GLOMERULAR FILTRATION RATE 9 ML/MIN (>89); SODIUM (NA) 148 MEQ/L (136-145)
[2017-07-06] MEDS ORDERED: SODIUM CHLORIDE 0.9% FLUSH 10 ML FLUSH IV FLUSH PRN (10:30)
[2017-07-06] MEDS ORDERED: MISCELLANEOUS NURSING INFORMATION XX SCH (10:30)
[2017-07-06] MEDS ORDERED: CHLORHEXIDINE GLUCONATE 2 % 1 PACK (2 CLOTHS) TOP PRN (10:30)
[2017-07-06 10:33] LABS: ALKALINE PHOSPHATASE 132 U/L (45-117); ALT (GPT) 28 U/L (12-78); CREATINE KINASE 162 U/L (39-308); TOTAL BILIRUBIN ADULT 0.4 MG/DL (0.2-1.0)
[2017-07-06 10:38] LABS: BLOOD GAS BASE EXCESS -15.5 mmol/L (-2-2); BLOOD GAS CARBOXYHEMOGLOBIN 0.3 % (0-4); BLOOD GAS HCO3 12 mmol/L (22-26); BLOOD GAS METHEMOGLOBIN 0.8 % (0-2); BLOOD GAS O2 HGB SATURATION 99 % (90-100); BLOOD GAS OXYGEN CONTENT 18.2 Vol % (12.0-20.0); BLOOD GAS PCO2 34 mmHg (38-42); BLOOD GAS PO2 515 mmHg (61-120); BLOOD GAS TOTAL HGB 12.2 G/DL (12.0-16.0); TEMP CORR TO 98.6
--- NOTE | 2017-07-06 10:38 | PD ---
HPI Chief Complaint: Altered Mental Status Time Seen by Provider: 09:36 Travel History International Travel<30 days: No Contact w/Intl Traveler<30days: No Traveled to known affect area: No History of Present Illness HPI This is a 66-year-old male who [facility] after he apparently had decreased level of consciousness while at the breakfast table. According to the paramedics the staff at the [facility] reports that he was eating breakfast when he apparently passed out. He reports that he's been passing out quite a bit lately. He has no cardiac history that were aware of. The patient is unable to give any history as he is obtunded and responds only to painful stimuli. The patient was reportedly having loose stools over last several days. There are no other reported events. PFSH Past Medical History Arthritis: No Asthma: No Atrial Fibrillation: Yes Bipolar Disorder: Yes Anxiety: Yes Depression: Yes Heart Rhythm Problems: Yes Cardiovascular Problems: Yes High Cholesterol: Yes Chest Pain: No Congestive Heart Failure: No COPD: Yes Cerebrovascular Accident: No Dementia: Yes Diabetes: Yes Diminished Hearing: No Endocrine: Yes Gastrointestinal Disorders: Yes GERD: Yes Genitourinary: No Headaches: No (See EMR) Hiatal Hernia: No Hypertension: Yes Immune Disorder: No Implanted Vascular Access Dvce: No Musculoskeletal: No Neurologic: Yes Psychiatric: Yes (Hx of treatment for Schizoaffective Disorder) Reproductive: No Respiratory: Yes Immunizations Current: Yes Migraines: No Pneumonia: Yes Schizophrenia: Yes Sleep Apnea: No Thyroid Disease: No Triglycerides - High: Yes Ulcer: No PNEUMOCCOCAL Vaccine (Year): 2 Past Surgical History Abdominal Surgery: No Cardiac Surgery: No Ear Surgery: No Endocrine Surgery: Yes (DM) Eye Surgery: No Gynecologic Surgery: No Neurologic Surgery: No Oral Surgery: No Thoracic Surgery: No Other Surgery: Yes Family History Family Hypercholesterolemia: Yes Social History Alcohol Use: No Tobacco Use: Yes (1 PACK PER DAY) Substance Use: No Allergies-Medications (Allergen,Severity, Reaction): Coded Allergies: calamine (Unverified Allergy, Severe, Rash, 06/13/17) olanzapine (Unverified Adverse Reaction, Severe, THROMBOCYTOPENIA, 06/13/17 ) Reported Meds & Prescriptions Reported Meds & Active Scripts Active Haloperidol Inj (Haloperidol Lactate) 5 Mg/Ml Inj 1 Ml IM UP TO BID, PRN 30 Days Reported Geodon (Ziprasidone) 60 Mg Cap 60 Mg PO BID Metformin (Metformin HCl) 1,000 Mg Tab 1,000 Mg PO DAILY With a meal Haloperidol Liq (Haloperidol Lactate) 2 Mg/Ml Conc 12.5 Mg PO BID Benztropine (Benztropine Mesylate) 0.5 Mg Tab 2 Mg PO DAILY Aspirin 325 Mg Tab 325 Mg PO DAILY Review of Systems ROS Limitations: Clinical Condition (unable to obtain review of systems secondary to patient's altered mental status), Altered Mental Status, Unresponsive Except as stated in HPI: all other systems reviewed are Neg Physical Exam Narrative GENERAL: Thin cachectic male in moderate to severe respiratory distress. SKIN: Pale and cool HEAD: Atraumatic. Normocephalic. EYES: Pupils equal and round. No scleral icterus. No injection or drainage. ENT: No nasal bleeding or discharge. Mucous membranes pale and dry NECK: Trachea midline. No JVD. CARDIOVASCULAR: Irregularly irregular with a rate of 140. No obvious murmur appreciated RESPIRATORY: Coarse breath sounds bilaterally. No Rales GASTROINTESTINAL: Abdomen soft, non-distended and cachectic. MUSCULOSKELETAL: No obvious deformities. No clubbing. No cyanosis. No edema. Skin tenting appreciated. NEUROLOGICAL: Responsive only to painful stimuli. Data Data Last Documented VS Vital Signs Date Time Temp Pulse Resp B/P (MAP) Pulse Ox O2 Delivery O2 Flow Rate FiO2 07/06/17 11:05 144 07/06/17 11:00 96.4 14 98/65 (76) 100 Ventilator 45 07/06/17 09:45 15.00 Orders Orders Norepinephrine Inj (Levophed Inj) (07/06/17 09:32) Electrocardiogram (07/06/17 09:37) Complete Blood Count With Diff (07/06/17 09:37) Comprehensive Metabolic Panel (07/06/17 09:37) Prothrombin Time / Inr (Pt) (07/06/17 09:37) Act Partial Throm Time (Ptt) (07/06/17 09:37) Lactic Acid Sepsis Protocol (07/06/17 09:37) Ckmb (Isoenzyme) Profile (07/06/17 09:37) Troponin I (07/06/17 09:37) Urinalysis - C+S If Indicated (07/06/17 09:37) Blood Culture (07/06/17 09:37) Chest, Single Ap (07/06/17 09:37) Arterial Blood Gas (Abg) (07/06/17 09:37) Blood Glucose (07/06/17 09:37) Ecg Monitoring (07/06/17 09:37) Iv Access Insert/Monitor (07/06/17 09:37) Oximetry (07/06/17 09:37) Oxygen Administration (07/06/17 09:37) Urinary Catheter Insert/Apply (07/06/17 09:37) Ct Brain W/O Iv Contrast(Rout) (07/06/17 09:37) Sodium Chlor 0.9% 1000 Ml Inj (Ns 1000 M (07/06/17 09:37) Sodium Chlor 0.9% 1000 Ml Inj (Ns 1000 M (07/06/17 09:37) Sodium Chlor 0.9% 1000 Ml Inj (Ns 1000 M (07/06/17 09:37) Norepinephrine-Dextrose Drip (Levophed-D (07/06/17 09:45) Dextrose 5% In [place]... W/Vasopressin Inj (07/06/17 09:37) Epinephrine (1:1000) Inj (Adrenalin (1:1 (07/06/17 09:45) Midazolam 100 Mg/100 Ml Inj (Versed Inj) (07/06/17 09:53) Etomidate Inj (Amidate Inj) (07/06/17 09:53) Succinylcholine Inj (Quelicin Inj) (07/06/17 09:53) Piperacil-Tazo 4.5 Gm Premix (Zosyn 4.5 (07/06/17 10:21) Urine Culture (07/06/17 09:45) CKMB (07/06/17 09:45) CKMB% (07/06/17 09:45) Admit To Inpatient (07/06/17 ) Code Status (07/06/17 10:30) Vital Signs (Adult) MOE.Q1H (07/06/17 10:30) Activity Bed Rest (07/06/17 10:30) Forest Economist / Telemetry MOE.Q8H (07/06/17 10:30) Intake + Output MOE.Q8H (07/06/17 10:30) Urinary Catheter Management MOE.Q8H (07/06/17 10:30) Diet Npo (07/06/17 Lunch) Sodium Chlor 0.9% 1000 Ml Inj (Ns 1000 M (07/06/17 11:00) Sodium Chloride 0.9% Flush (Ns Flush) (07/06/17 10:30) Sodium Chloride 0.9% Flush (Ns Flush) (07/06/17 21:00) Albuterol-Ipratropium Neb (Duoneb Neb) (07/06/17 10:30) Albuterol Neb (Albuterol Neb) (07/06/17 12:00) Chlorhexidine 0.12% Liq (Peridex 0.12% L (07/06/17 20:00) Pantoprazole Inj (Protonix Inj) (07/06/17 11:00) Complete Blood Count With Diff (07/07/17 06:00) Comprehensive Metabolic Panel (07/07/17 06:00) Troponin I (07/06/17 10:30) Troponin I (07/06/17 16:30) Magnesium (Mg) (07/06/17 10:30) Sputum Culture And Gram Stain (07/06/17 10:30) Echo 2d Comp With Doppler (07/06/17 ) Consult Cm-Day 5 Ltac Eval (07/06/17 ) Drug Screen, Random Urine (07/06/17 10:30) Scd Bilateral/Knee High MOE.BID (07/06/17 10:30) Matt Bilateral/Knee High MOE.QSHIFT (07/06/17 12:00) ^ Initiate Protocol (07/06/17 10:30) Instruction (07/06/17 10:30) [facility] (07/06/17 10:30) Chlorhexidine 2% Cloth (Chlorhexidine 2% (07/07/17 04:00) Chlorhexidine 2% Cloth (Chlorhexidine 2% (07/06/17 10:30) [facility] P[facility] Surveillance (07/06/17 10:30) Neurological Rass Scale Q30MX2,Q2HX4,Q4H (07/06/17 10:30) Fentanyl Drip (Fentanyl Drip) (07/06/17 11:30) Midazolam 100 Mg/100 Ml Inj (Versed Inj) (07/06/17 11:30) Neurological Rass Scale Q30MX2,Q2HX4,Q4H (07/06/17 10:30) Inpatient Certification (07/06/17 ) Consult Nephrology (07/06/17 ) Metronidazole 500 Mg Inj (Flagyl 500 Mg (07/06/17 11:15) Cefepime Inj (Maxipime Inj) (07/06/17 11:30) Vancomycin Consult Pharmacy (Vancomycin (07/06/17 10:45) C Diff Toxin Pcr (07/06/17 10:38) (Hub Use Only)Inp Phy Cons/Ref (07/06/17 ) Enoxaparin Inj (Lovenox Inj) (07/06/17 11:30) Admit Order (Ed Use Only) (07/06/17 11:19) Labs Laboratory Tests Test 07/06/17 09:45 07/06/17 10:19 07/06/17 10:50 White Blood Count 16.0 TH/MM3 Red Blood Count 4.97 MIL/MM3 Hemoglobin 15.4 GM/DL Hematocrit 47.4 % Mean Corpuscular Volume 95.5 FL Mean Corpuscular Hemoglobin 31.0 PG Mean Corpuscular Hemoglobin Concent 32.5 % Red Cell Distribution Width 14.5 % Platelet Count 340 TH/MM3 Mean Platelet Volume 8.7 FL Neutrophils (%) (Auto) 90.4 % Lymphocytes (%) (Auto) 4.9 % Monocytes (%) (Auto) 4.6 % Eosinophils (%) (Auto) 0.0 % Basophils (%) (Auto) 0.1 % Neutrophils # (Auto) 14.5 TH/MM3 Lymphocytes # (Auto) 0.8 TH/MM3 Monocytes # (Auto) 0.7 TH/MM3 Eosinophils # (Auto) 0.0 TH/MM3 Basophils # (Auto) 0.0 TH/MM3 CBC Comment DIFF FINAL Differential Comment Prothrombin Time 11.6 SEC Prothromb Time International Ratio 1.0 RATIO Activated Partial Thromboplast Time 23.1 SEC Urine Color YELLOW Urine Turbidity CLOUDY Urine pH 6.5 Urine Specific [place] 1.015 Urine Protein 300 mg/dL Urine Glucose (UA) NEG mg/dL Urine Ketones TRACE mg/dL Urine Occult Blood LARGE Urine Nitrite NEG Urine Bilirubin NEG Urine Urobilinogen LESS THAN 2.0 MG/DL Urine Leukocyte Esterase LARGE Urine RBC /hpf Urine WBC /hpf Urine WBC Clumps MANY Urine Bacteria MANY /hpf Urine Mucus FEW /lpf Microscopic Urinalysis Comment CATH-CULTURE IND Blood Urea Nitrogen 125 MG/DL Creatinine 6.39 MG/DL Random Glucose 340 MG/DL Total Protein 7.0 GM/DL Albumin 3.5 GM/DL Calcium Level 8.5 MG/DL Alkaline Phosphatase 132 U/L Aspartate Amino Transf (AST/SGOT) 21 U/L Alanine Aminotransferase (ALT/SGPT) 28 U/L Total Bilirubin 0.4 MG/DL Sodium Level 148 MEQ/L Potassium Level 5.0 MEQ/L Chloride Level 115 MEQ/L Carbon Dioxide Level 12.4 MEQ/L Anion Gap 21 MEQ/L Estimat Glomerular Filtration Rate 9 ML/MIN Lactic Acid Level 4.6 mmol/L Total Creatine Kinase 162 U/L Creatine Kinase MB 5.5 NG/ML Troponin I 0.09 NG/ML Blood Gas Puncture Site ART LINE Blood Gas Patient Temperature 98.6 Blood Gas HCO3 12 mmol/L Blood Gas Base Excess -15.5 mmol/L Blood Gas Oxygen Saturation 99 % Arterial Blood pH 7.15 Arterial Blood Partial Pressure CO2 34 mmHg Arterial Blood Partial Pressure O2 515 mmHg Arterial Blood Oxygen Content 18.2 Vol % Arterial Blood Carboxyhemoglobin 0.3 % Arterial Blood Methemoglobin 0.8 % Blood Gas Hemoglobin 12.2 G/DL Oxygen Delivery Device VENTILATOR Blood Gas Ventilator Setting PRVC/AC Blood Gas Inspired Oxygen 100 % MDM Medical Decision Making Medical Screen Exam Complete: Yes Emergency Medical Condition: Yes Differential Diagnosis Acute coronary event versus intracranial hemorrhage versus metabolic derangement versus sepsis Narrative Course 66-year-old male from a [facility] after having an episode of altered sensorium. The patient appears to be septic with urinary source. He's been started on pressors. He's been given IVD fluid boluses up to 4 L. He's been started on Zosyn with cultures pending. Lactic acid is 4.7. Case was discussed with Dr. Rodrigues, button sewer, who will soon care in the intensive care unit. He's been intubated emergently here. There is a likelihood that he had aspiration secondary to the need to suction food products of the posterior pharynx. Critical Care Narrative Aggregate critical care time was 70 minutes. Time to perform other separately billable procedures was not included in the critical care time. My time did not include minutes spent treating any other patients simultaneously or on activities that did not directly contribute to the patient's treatment. The services I provided to this patient were to treat and/or prevent clinically significant deterioration that could result in: I provided critical care services requiring my management, as noted below: Chart data review, documentation time, medication orders and management, vital sign assessments/reviewing monitor data, ordering and reviewing lab tests, ordering and interpreting/reviewing x-rays and diagnostic studies, care of the patient and discussion of the patient with the admitting physicians. Procedures Procedure Narrative Intubated emergently: INTUBATION: The patient was put in optimal position for the procedure. Rapid sequence intubation was initiated by me using 20 milligrams of etomidate IV and 100 milligrams of succinylcholine IV. The patient was intubated with a 8.0 cuffed endotracheal tube. Tube placement was confirmed by visualization of the tube and balloon passing through the cords, capnometry and subsequent chest x- ray. Breath sounds were equal and well aerated bilaterally postintubation. No breath sounds over stomach. Patient tolerated procedure well. Sepsis Criteria SIRS Criteria (2 or more): Heart rate over 90, RR > 20 or PaCO2 < 32, WBC > 35636, < 4000 or > 10% bands Sepsis Criteria (SIRS+source): Infect source susp/known Diagnosis Primary Impression: Sepsis Additional Impressions: Urinary tract infection Hypotension Severe dehydration DM (diabetes mellitus) HLD (hyperlipidemia) Schizophrenia Dementia atrial fibrillation with RVR Admitting Information Admitting Physician Requests: Admit Dao Cai MD Jul 06, 2017 10:38
[2017-07-06 10:39] LABS: CRITICAL VALUE YES; DRAW SITE ART LINE; FIO2 100 %; OXYGEN DEVICE VENTILATOR; STAT YES; ULNAR PULSE PRESENT; VENT SETTINGS PRVC/AC
[2017-07-06 10:45] LABS: CKMB 5.5 NG/ML (0.5-3.6)
[2017-07-06] MEDS ORDERED: Vancomycin Consult Pharmacy 1 EA OTHER SCH (10:45)
[2017-07-06] MEDS: RESP: ALBUTEROL 2.5 MG/IPRATROPIUM 0.5 MG NEB (SCH) NEB ×3 (10:52→19:52)
[2017-07-06] MEDS ORDERED: SODIUM CHLOR 0.9% 1000 ML INJ 1,000 ML IV SCH (11:00)
--- NOTE | 2017-07-06 11:08 | RADRPT ---
EXAM DATE/TIME: 07/06/2017 10:40 [facility] COMPARISON: CHEST SINGLE AP, November 24, 2014, 14:59. INDICATIONS : Post intubation. MEDICAL HISTORY : Hypertension. Dementia. Cardiovascular disease SURGICAL HISTORY : None. ENCOUNTER: Initial ACUITY: 1 day PAIN SCORE: Non-responsive. LOCATION: Bilateral chest FINDINGS: A single view of the chest demonstrates the lungs to be symmetrically aerated without evidence of mas s, infiltrate or effusion. The endotracheal tube and NG tube appear in good position. There is no pn eumothorax. The cardiomediastinal contours are unremarkable. The old fracture involving the proximal right humerus. CONCLUSION: No acute disease. No significant change has occurred. Sam Ruiz MD on July 06, 2017 at 11:05 Board Certified Radiologist. This report was verified electronically.
[2017-07-06] MEDS: PANTOPRAZOLE SODIUM 40 MG VIAL IV PUSH SCH (11:22)
[2017-07-06] MEDS ORDERED: MIDAZOLAM 100 MG/100 ML INJ 100 ML IV PRN (11:30)
[2017-07-06] MEDS ORDERED: SUCCINYLCHOLINE CHLORIDE 200 MG/10 ML VIAL IV PUSH ONE (11:30)
[2017-07-06] MEDS ORDERED: fentaNYL DRIP 250 ML IV PRN (11:30)
[2017-07-06] MEDS ORDERED: ETOMIDATE 20 MG/10 ML VIAL IVP ONE (11:30)
[2017-07-06] MEDS: ENOXAPARIN SODIUM 30 MG/0.3 ML SYRINGE SQ SCH (11:30)
[2017-07-06] MEDS: MIDAZOLAM 100 MG/100 ML INJ 100 ML IV PRN ×2 (11:45→18:06)
[2017-07-06 11:58] LABS: LACTIC ACID GHOST NOT REPORTABLE
[2017-07-06] MEDS ORDERED: RESP: ALBUTEROL 2.5 MG/3 ML NEB (PRN) INH (12:00)
--- NOTE | 2017-07-06 12:07 | EKG ---
Date Performed: 07/06/2017 Time Performed: 09:46:02 PTAGE: 66 years EKG: ATRIAL FIBRILLATION WITH RAPID VENTRICULAR RESPONSE Nonspecific T wave changes ABNORMAL ECG WARNING: DATA QUALITY MAY AFFECT INTERPRETATION INTERPRETATION BASED ON A DEFAULT AGE OF 40 YEARS Co mpared to prior electrocardiogram, atrial fibrillation and Nonspecific T wave changes are now present PREVIOUS TRACING : 05/05/2017 03.17 DOCTOR: Raphael Art Interpretating Date/Time 07/06/2017 12:06:56
--- NOTE | 2017-07-06 12:11 | HHI.HP ---
[facility] Service Critical Care Medicine Primary Care Physician [facility] Admission Diagnosis sepsis, dehydration, afib with rvr Diagnosis: (1) Septic shock Diagnosis: Principal (2) Acute metabolic encephalopathy Diagnosis: Principal (3) Acute kidney failure Diagnosis: Principal (4) Severe dehydration Diagnosis: Principal (5) Lactic acidemia Diagnosis: Principal (6) Metabolic acidemia Diagnosis: Principal (7) Atrial fibrillation with rapid ventricular response Diagnosis: Principal (8) UTI (urinary tract infection) Diagnosis: Principal (9) Hyperglycemia Diagnosis: Principal (10) Schizophrenia Diagnosis: Secondary (11) COPD (chronic obstructive pulmonary disease) Diagnosis: Secondary (12) A-fib Diagnosis: Secondary (13) DM (diabetes mellitus) Diagnosis: Secondary Chief Complaint: Unresponsive Septic shock Travel History International Travel<30 Days: No Contact w/Intl Traveler <30 Da: No Traveled to Known Affected Are: No Sepsis Criteria SIRS Criteria (2 or more): Temp > 100.9 or < 96.8, Heart rate over 90, RR > 20 or PaCO2 < 32, WBC > 19753, < 4000 or > 10% bands Sepsis Criteria (SIRS+source): Infect source susp/known Severe Sepsis (+one): Organ Dysfunction, Lactate >2, Acute Oliguria/Renal Failure Criteria Outcome: Meets septic shock criteria, Meets multiple organ dys. criteria History of Present Illness All history is obtained from discussion with the ED physician and chart review as the patient is intubated and altered Patient is a 66-year-old male [facility] resident with past medical history with schizophrenia dementia with behavioral disturbances, COPD, type 2 diabetes , hypertension, dyslipidemia, chronic atrial fibrillation. He apparently developed altered mentation, decreased level of consciousness while at the breakfast table in his NH. He passed out while eating breakfast, had been having syncopal episodes recently. Initial blood pressure systolic was in the 50s and patient was aggressively resuscitated in the ED with a total of 3 L normal saline. Broad-spectrum antibiotics given with Zosyn. The patient appears to be septic with urinary source. He's been started on Levophed to keep map above 65. Abnormal labs include Lactic acid is 4.7, sodium of 148, bicarbonate 12.4, BUN 125/creatinine 6.39, blood glucose was 639. WBC count was 16,000. There is evidence of aspiration as per the intubation note from Dr. aCi I evaluated the patient in the ED. He is intubated sedated but withdrawals to pain on all 4 extremities. His remains hypotensive tachycardic with A. fib with RVR. Levophed is at 2 mcg/m. Additional 1 L fluid boluses ordered, patient will need central line placement and further resuscitation. Antibiotics were modified to vancomycin cefepime and Flagyl. Due to recent history of diarrhea, C. difficile had been ordered Review of Systems ROS Limitations: Intubated, Unresponsive Past Family Social History Allergies: Coded Allergies: calamine (Unverified Allergy, Severe, Rash, 07/06/17) olanzapine (Unverified Adverse Reaction, Severe, THROMBOCYTOPENIA, ) Past Medical History Type 2 diabetes Schizophrenia COPD Chronic atrial fibrillation Hyperlipidemia Hypertension Paranoid schizophrenia with behavioral disturbances Early dementia Past Surgical History Unable to obtain as the patient is intubated Patient has previous healed scars Indicating laparotomy, left thoracotomy and previous trach Reported Medications Geodon (Ziprasidone) 60 Mg Cap 60 Mg PO BID Metformin (Metformin HCl) 1,000 Mg Tab 1,000 Mg PO DAILY Haloperidol Liq (Haloperidol Lactate) 2 Mg/Ml Conc 12.5 Mg PO BID Benztropine (Benztropine Mesylate) 0.5 Mg Tab 2 Mg PO DAILY Aspirin 325 Mg Tab 325 Mg PO DAILY Active Ordered Medications Reviewed Family History Unable to obtain Social History Detailed history not obtainable as patient is intubated [facility] resident, smokes one pack of cigarettes daily Physical Exam Vital Signs Vital Signs Date Time Temp Pulse Resp B/P (MAP) Pulse Ox O2 Delivery O2 Flow Rate FiO2 07/06/17 11:30 96.6 132 14 100/60 (73) 100 Ventilator 45 07/06/17 11:05 144 07/06/17 11:00 96.4 136 14 98/65 (76) 100 Ventilator 45 07/06/17 10:30 96.4 136 14 93/65 (74) 100 Ventilator 45 07/06/17 10:07 100 100 07/06/17 10:06 100 07/06/17 10:00 98.2 128 16 07/06/17 10:00 96.6 130 14 91/62 (72) 100 Ventilator 100 07/06/17 09:45 132 28 90/55 (67) 89 Non-Rebreather 15.00 07/06/17 09:20 144 28 52/ 89 Non-Rebreather 15.00 07/06/17 09:20 89 Non-Rebreather 15.00 07/06/17 09:20 89 Non-Rebreather 15.00 Physical Exam GENERAL: Cachectic poorly kempt elderly male who is intubated sedated with Versed SKIN: Pale and cool, dry HEAD: Atraumatic. Normocephalic. EYES: Pupils equal and round, sluggishly reactive. No scleral icterus. No injection or drainage. ENT: Mucous membranes dry. Edentulous. Orotracheally intubated NECK: Trachea midline. No JVD. Well-healed previous trach incision CARDIOVASCULAR: Irregularly irregular with a rate of 140. No obvious murmur appreciated RESPIRATORY: Coarse breath sounds bilaterally. Scattered wheezes. Well-healed left thoracotomy scar GASTROINTESTINAL: Abdomen soft, non-distended. Well-healed vertical abdominal scar MUSCULOSKELETAL: No obvious deformities. Erythema over bilateral knee NEUROLOGICAL: Intubated sedated, pupils are reactive. Withdraws all 4 extremities. Laboratory Laboratory Tests Test 07/06/17 09:45 07/06/17 10:19 07/06/17 10:50 07/06/17 11:57 White Blood Count 16.0 Red Blood Count 4.97 Hemoglobin 15.4 Hematocrit 47.4 Mean Corpuscular Volume 95.5 Mean Corpuscular Hemoglobin 31.0 Mean Corpuscular Hemoglobin Concent 32.5 Red Cell Distribution Width 14.5 Platelet Count 340 Mean Platelet Volume 8.7 Neutrophils (%) (Auto) 90.4 Lymphocytes (%) (Auto) 4.9 Monocytes (%) (Auto) 4.6 Eosinophils (%) (Auto) 0.0 Basophils (%) (Auto) 0.1 Neutrophils # (Auto) 14.5 Lymphocytes # (Auto) 0.8 Monocytes # (Auto) 0.7 Eosinophils # (Auto) 0.0 Basophils # (Auto) 0.0 CBC Comment DIFF FINAL Differential Comment Prothrombin Time 11.6 Prothromb Time International Ratio 1.0 Activated Partial Thromboplast Time 23.1 Urine Color YELLOW Urine Turbidity CLOUDY Urine pH 6.5 Urine Specific [place] 1.015 Urine Protein 300 Urine Glucose (UA) NEG Urine Ketones TRACE Urine Occult Blood LARGE Urine Nitrite NEG Urine Bilirubin NEG Urine Urobilinogen LESS THAN 2.0 Urine Leukocyte Esterase LARGE Urine RBC Urine WBC Urine WBC Clumps MANY Urine Bacteria MANY Urine Mucus FEW Microscopic Urinalysis Comment CATH-CULTURE IND Blood Urea Nitrogen 125 Creatinine 6.39 Random Glucose 340 Total Protein 7.0 Albumin 3.5 Calcium Level 8.5 Alkaline Phosphatase 132 Aspartate Amino Transf (AST/SGOT) 21 Alanine Aminotransferase (ALT/SGPT) 28 Total Bilirubin 0.4 Sodium Level 148 Potassium Level 5.0 Chloride Level 115 Carbon Dioxide Level 12.4 Anion Gap 21 Estimat Glomerular Filtration Rate 9 Lactic Acid Level 4.6 Total Creatine Kinase 162 Creatine Kinase MB 5.5 Troponin I 0.09 Blood Gas Puncture Site ART LINE Blood Gas Patient Temperature 98.6 Blood Gas HCO3 12 Blood Gas Base Excess -15.5 Blood Gas Oxygen Saturation 99 Arterial Blood pH 7.15 Arterial Blood Partial Pressure CO2 34 Arterial Blood Partial Pressure O2 515 Arterial Blood Oxygen Content 18.2 Arterial Blood Carboxyhemoglobin 0.3 Arterial Blood Methemoglobin 0.8 Blood Gas Hemoglobin 12.2 Oxygen Delivery Device VENTILATOR Blood Gas Ventilator Setting PRVC/AC Blood Gas Inspired Oxygen 100 Date/Time Source Procedure Growth Status 07/06/17 09:45 Blood Peripheral Aerobic Blood Culture Pending Received 07/06/17 09:45 Blood Peripheral Anaerobic Blood Culture Pending Received 07/06/17 09:45 Urine Catheterized Urine Urine Culture Pending Received Result Diagram: 07/06/1745 07/06/17944 Imaging CXR no acute findings CT head negative for acute findings Septic Shock Reassessment Heart: Irregular Lungs: Course Skin: Cold, Dry Peripheral Pulses: Weak Right Radial Weak Left Radial Caprini VTE Risk Assessment Caprini VTE Risk Assessment: Mod/High Risk (score >= 2) Caprini Risk Assessment Model Point Value = 1 Point Value = 2 Point Value = 3 Point Value = 5 Age 41-60 Minor surgery BMI > 25 kg/m2 Swollen legs Varicose veins or History of unexplained or recurrent spontaneous Oral contraceptives or hormone replacement Sepsis (< 1 month) Serious lung disease, including pneumonia (< 1 month) Abnormal pulmonary function Acute myocardial infarction Congestive heart failure (< 1 month) History of inflammatory bowel disease Medical patient at bed rest Age 61-74 Arthroscopic surgery Major open surgery (> 45 min) Laparoscopic surgery (> 45 min) Malignancy Confined to bed (> 72 hours) Immobilizing plaster cast Central venous access Age >= 75 History of VTE Family history of VTE Factor V Leiden Prothrombin [id number] Lupus anticoagulant Anticardiolipin antibodies Elevated serum homocysteine Heparin-induced thrombocytopenia Other congenital or acquired thrombophilia Stroke (< 1 month) Elective arthroplasty Hip, pelvis, or leg fracture Acute spinal cord injury (< 1 month) Prophylaxis Regimen Total Risk Factor Score Risk Level Prophylaxis Regimen 0-1 Low Early ambulation 2 Moderate Order ONE of the following: *Sequential Compression Device (SCD) *Heparin 5000 units SQ BID 3-4 Higher Order ONE of the following medications: *Heparin 5000 units SQ TID *Enoxaparin/Lovenox 40 mg SQ daily (WT < 150 kg, CrCl > 30 mL/min) *Enoxaparin/Lovenox 30 mg SQ daily (WT < 150 kg, CrCl > 10-29 mL/min) *Enoxaparin/Lovenox 30 mg SQ BID (WT < 150 kg, CrCl > 30 mL/min) AND/OR *Sequential Compression Device (SCD) 5 or more Highest Order ONE of the following medications: *Heparin 5000 units SQ TID (Preferred with Epidurals) *Enoxaparin/Lovenox 40 mg SQ daily (WT < 150 kg, CrCl > 30 mL/min) *Enoxaparin/Lovenox 30 mg SQ daily (WT < 150 kg, CrCl > 10-29 mL/min) *Enoxaparin/Lovenox 30 mg SQ BID (WT < 150 kg, CrCl > 30 mL/min) AND *Sequential Compression Device (SCD) Assessment and Plan Assessment and Plan NEURO: Acute metabolic encephalopathy - Mental status change most likely secondary to metabolic encephalopathy from sepsis, and hypoperfusion from severe dehydration - Versed and fentanyl for sedation and ventilator synchrony - CT of the head negative for acute findings - Continue Geodon and benztropine RESP: Acute respiratory failure COPD with exacerbation - PRVC mechanical ventilation. Ventilator bundle - DuoNeb every 6 hours and when necessary - IV Solu-Medrol 60 mg every 6 hours - See ID section for broad-spectrum antibiotic - Sputum culture CV: Septic shock A. fib with RVR - Normal saline IV fluids 4L bolus and bicarbonate infusion at 150 ML per hour - Vasopressin, Levophed to keep map above 65, infusion for rate control - Cardizem for rate control - Await 2d echo. Continue aspirin - If A. fib is persistent mild and 24 hours started on IV heparin GI: - Nothing by mouth, IV Protonix : Acute kidney failure - Acute kidney failure is most likely from severe dehydration - Continue aggressive fluid resuscitation as above.Monitor renal function closely. Avery catheter. - Renal ultrasound, Nephrology consult ID: Septic shock UTI C. difficile - On IV vanc, cefepime and Flagyl - Urine and sputum culture, check for C. difficile HEME: - Monitor CBC, CMP, coags ENDO: Hyperglycemia, type 2 diabetes - Sliding-scale with NovoLog PROPH: Bilateral lower extremity SCDs. Lovenox for DVT prophylaxis. IV Protonix LINES: - Utilize peripheral IVs, central line if needed CC time 62 min Code Status Full Discussed Condition With Dr. Cai Problem Qualifiers (1) Acute kidney failure: Qualified Codes: N17.9 - Acute kidney failure, unspecified (2) DM (diabetes mellitus): Winnie Rodrigues MD Jul 06, 2017 12:11
[2017-07-06] MEDS ORDERED: SODIUM BICARBONATE 8.4% INJ 50 MEQ/50 ML SYR IV PUSH ONE (12:15)
[2017-07-06 12:32] LABS: C. DIFF EPI 027 PRESUMPTIVE NEGATIVE (NEGATIVE)
[2017-07-06] MEDS: CEFEPIME INJ 1,000 MG in SODIUM CHLORIDE 0.9% INJ 100 ML IV SCH ×2 (12:44→19:30)
--- NOTE | 2017-07-06 12:46 | RADRPT ---
EXAM DATE/TIME: 07/06/2017 12:08 [facility] COMPARISON: CT BRAIN W/O CONTRAST, May 01, 2017, 15:03. INDICATIONS : Altered mental status. RADIATION DOSE: 56.40 CTDIvol (mGy) MEDICAL HISTORY : Dementia. Hypercholesterolemia. Chronic obstructive pulmonary disease.chronic uti's, schizophrenic, v iolent behavior. SURGICAL HISTORY : None. ENCOUNTER: Initial ACUITY: 1 day PAIN SCALE: Non-responsive LOCATION: cranial TECHNIQUE: Multiple contiguous axial images were obtained of the head. Using automated exposure control and adj ustment of the mA and/or kV according to patient size, radiation dose was kept as low as reasonably a chievable to obtain optimal diagnostic quality images. DICOM format image data is available electro nically for review and comparison. FINDINGS: CEREBRUM: The ventricles are normal for age. Stable bilateral cortical atrophy and chronic white matter change s. No evidence of midline shift, mass lesion, hemorrhage or acute infarction. No extra-axial fluid c ollections are seen. POSTERIOR FOSSA: The cerebellum and brainstem are intact. The 4th ventricle is midline. The cerebellopontine angle i s unremarkable. EXTRACRANIAL: The visualized portion of the orbits is intact. SKULL: The calvaria is intact. No evidence of skull fracture. CONCLUSION: Stable CT scan of the brain compared to 05/01/2017. No new or significant changes. Sam Ruiz MD on July 06, 2017 at 12:43 Board Certified Radiologist. This report was verified electronically.
[2017-07-06] MEDS ORDERED: VANCOMYCIN 1,000 MG/NS 250 ML IV ONE ×2 (13:00)
--- NOTE | 2017-07-06 13:44 | MB ---
cc: BULL DAWSON MD DATE OF CONSULTATION: 07/06/2017. REASON FOR CONSULTATION: Acute renal failure management. HISTORY OF PRESENT ILLNESS: This is a 66-year-old male with a past history of schizophrenia. The patient has had multiple admissions here for behavioral disturbances as well as urinary tract infections in the past. The patient apparently lives in a prison and apparently he had decreased level of consciousness at breakfast today. The patient apparently had been passing out frequently and has had loose stools apparently prior to his admission. The patient was brought here to the emergency room and was intubated with altered mental status. The patient was found to have a significant acute renal failure with a creatinine of 6.39. His previous creatinine was 0.7 on June 13. He also had acidosis with a bicarbonate level of 12 and potassium level of 5. The patient was started on a IV fluids and received over 4 liters of IV fluid boluses after he was intubated. The patient has been brought here to the ICU. He has also had atrial fibrillation with rapid heart rate and he has been started on a Cardizem drip as well. At this time he has a systolic blood pressure of 102/62, and has been receiving pressor support as well as well as aggressive IV fluids. Given the acute renal failure, nephrology was consulted for further evaluation. REVIEW OF SYSTEMS: A review of systems is unobtainable. The patient is intubated at this time. PAST MEDICAL HISTORY: His past medical history includes: 1. Type 2 diabetes. 2. Schizophrenia. 3. COPD. 4. Atrial fibrillation. 5. Dyslipidemia. 6. Hypertension. 7. Dementia. PAST SURGICAL HISTORY: Unable to obtain; however, the patient has scars indicating previous laparotomy and left thoracotomy and previous tracheotomy. MEDICATIONS AT HOME: Medications at home reportedly included: 1. Geodon. 2. Metformin. 3. Haldol. 4. Benztropine. 5. Aspirin. ALLERGIES: 1. CALAMINE. 2. OLANZAPINE. FAMILY HISTORY: Unknown. Unable to obtain. SOCIAL HISTORY: The patient lives in a prison. He apparently smokes one pack of cigarettes per day. PHYSICAL EXAMINATION: VITAL SIGNS: At the time of evaluation, temperature 96.4, respiratory rate 14 on ventilator, blood pressure 102/62, pulse oximetry 100% on 45% FIO2. GENERAL: Intubated. Bilateral central wasting. HEAD, EYES, EARS, NOSE, THROAT: Patient with dry oral mucosa. NECK: Soft and supple. CARDIAC: Tachycardia. Irregular. PULMONARY: Coarse rhonchi. Decreased breath sounds at bases. ABDOMEN: The abdomen is soft, nontender and nondistended. EXTREMITIES: No edema. LABORATORY FINDINGS: White count 16, hemoglobin 15.4, hematocrit 47.4 with platelet count of 340,000. Sodium 148, potassium 5, chloride 115, bicarbonate 12.4, BUN 125, creatinine 6.39 with glucose of 340, lactic acid was 4.6 initially and then repeat level of 1.2, calcium 8.5. Troponin 0.09. Urinalysis with 300 protein, trace ketones, large blood, large leukocyte esterase, many white blood cell clumps, many bacteria, a few mucus. Urine culture is pending. IMAGING STUDIES: The patient had a head CT done and the report is pending at this point. A renal ultrasound was ordered. ASSESSMENT AND PLAN: 1. Acute kidney injury. The patient had a relatively normal creatinine level of 0.7 approximately one month ago. He presents here with a creatinine of 6. The patient has findings of apparent acute renal failure. At this time, I suspect acute kidney injury is secondary to hypotension with volume depletion. The patient apparently had a history of recent loose stools and he may have had diarrhea that precipitated some of this. He has hypotension secondary to sepsis at this point. At this point, the patient has started to make some urine. He has made several hundred cc since his admission here several hours ago. I agree with aggressive IV fluid repletion at this point. The patient has no urgent indication for dialysis at this time. His potassium is 5 at this point and will continue with medical management for now. Will continue fluids with bicarbonate. Should the patient have little improvement or decrease in urine output with progression to full ATN, may consider for dialysis initiation; however at this point, continue with aggressive fluids and management of hypotension. Will further follow up renal ultrasound which was ordered and check urine sodium and creatinine. It is encouraging that he is making urine; however, we will continue to closely monitor for any need for dialysis. 2. Acidosis. The patient has significant acidosis with a bicarbonate level of 12.4. His lactic acid was initially elevated at 4.6 and then improved down to 1.2. I suspect this acidosis is secondary to acute kidney injury with hypotension and hypoperfusion. In addition, he has had some history of recent diarrhea, which may have also contributed to acidosis. Agree with D5W with 150 milliequivalents of sodium bicarbonate at 150 cc/hour. Continue with aggressive volume repletion with bicarbonate containing fluids at this point to help correct acidosis. If there is little improvement, may consider for dialysis; however, continue with fluids at this point. 3. Respiratory failure and COPD. The patient was intubated. Continue follow up with the intensive care unit team. 4. Sepsis. The patient has a previous history of urinary tract infections. His urinalysis here is suggestive of a possible urinary tract infection. The patient has been started with Zosyn and Vancomycin was given as well. If Vancomycin is continued, continue to closely monitor levels. Renal dose all medications as possible. The patient was also given a dose of Cefepime as well. 5. Atrial fibrillation. Patient with atrial fibrillation with rapid heart rate. Continue with Cardizem drip. Continue to monitor. 6. Diabetes. Continue to monitor. Hold the patient's home metformin given the acute kidney injury. Continue with insulin management. 7. Schizophrenia. The patient has had multiple admissions with behavioral disturbances. Continue to monitor here in the intensive care unit. The patient is intubated and sedated at this time. MD DADA Park/ALIZA /1:12 PM /1:25 PM JONATHAN
--- NOTE | 2017-07-06 13:55 | PD.PROCEDR ---
Central Line Procedure REASON FOR PROCEDURE Central venous access PROCEDURE PERFORMED Central line placement: Right subclavian CONSENT Emergency procedure ANESTHESIA Local injection of 1% Lidocaine DESCRIPTION OF THE PROCEDURE The patient was placed in supine, mild Trendelenburg position. The area was exposed and cleansed with ChloraPrep, times two. Large sterile drape was used to cover the patient, with the site exposed, under sterile conditions including cap, face mask, sterile gown, and sterile gloves. On single attempt, the introducer needle was inserted with negative pressure in syringe and venous flash was obtained. The guide wire was then advanced without any restriction and the needle was removed. The dilator was used without any complications. Using Seldinger technique the 20 CM 7F catheter was advanced over the guide wire to a depth of 17 centimeters. The guide wire was removed. All ports were aspirated with dark venous blood return and flushed easily with sterile saline. All ports were capped. Antibiotic disc was placed around central line at puncture site. The central line was secured to the skin with two interrupted 2.0 silk sutures. The area was bandaged with sterile see-through central line bandage. COMPLICATIONS: No apparent complications ESTIMATED BLOOD LOSS: Less than 1 cc. Winnie Rodrigues MD Jul 06, 2017 13:55
[2017-07-06] MEDS ORDERED: MIDAZOLAM 100 MG/NS 100 ML DRIP Premix IV PRN (14:15)
--- NOTE | 2017-07-06 14:37 | RADRPT ---
EXAM DATE/TIME: 07/06/2017 12:59 [facility] COMPARISON: No previous studies available for comparison. INDICATIONS : Increased BUN and creatinine. MEDICAL HISTORY : Hypercholesterolemia. Hypertension. Dementia. COPD. Hyperlipidemia. Seizures. Chronic UTI's. diabet es. atrial fibrillation. SURGICAL HISTORY : None. ENCOUNTER: Initial ACUITY: 1 day PAIN SCORE: Nonresponsive. LOCATION: Bilateral flank MEASUREMENTS: RIGHT KIDNEY: 9.9 x 5.9 x 4.8 cm LEFT KIDNEY: 11.5 x 5.4 x 6.1 cm FINDINGS: Ultrasound of the upper abdomen demonstrates increased echogenicity of the liver compatible with fatt y infiltration or hepatocellular disease. The spleen is unremarkable. There are simple cysts bilatera lly the largest measuring 1.9 cm in the upper pole of the right. A Avery catheter is present within t he bladder which does not allow for evaluation. There is possible mass adjacent to the decompressed b ladder. CT scan is recommended for further evaluation if clinically indicated. CONCLUSION: 1. Echogenic kidneys bilaterally compatible with medical renal disease. 2. Possible pelvic mass. CT scan is recommended for further evaluation if clinically indicated. Shawn Nick MD on July 06, 2017 at 14:34 Board Certified Radiologist. This report was verified electronically.
--- NOTE | 2017-07-06 14:54 | ECHRPT ---
Indication: a fib CONCLUSIONS The left ventricle is not well visualized. The left ventricular systolic function is normal with an estimated ejection fraction in the range of 55-60%. Normal left ventricular size. Tukab-sn-beia mitral valve regurgitation. The aortic valve is not well visualized. There is mild tricuspid valve regurgitation. The pulmonary valve is not well visualized. The inferior vena cava is dilated. BP: / HR: Rhythm: MEASUREMENTS (Male / Female) Normal Values Technical Quality:Technically difficult study 2D ECHO LV Diastolic Diameter PLAX 3.6 cm 4.2 - 5.9 / 3.9 - 5.3 cm LV Systolic Diameter PLAX 2.9 cm IVS Diastolic Thickness 0.9 cm 0.6 - 1.0 / 0.6 - 0.9 cm LVPW Diastolic Thickness 0.9 cm 0.6 - 1.0 / 0.6 - 0.9 cm LV Relative Wall Thickness 0.5 RV Internal Dim ED PLAX 2.5 cm DOPPLER TR Peak Velocity 280.0 cm/s TR Peak Gradient 31.4 mmHg Right Atrial Pressure 10.0 mmHg Pulmonary Artery Systolic Pressu 41.4 mmHg Right Ventricular Systolic Press 41.4 mmHg FINDINGS LEFT VENTRICLE The left ventricle is not well visualized. The left ventricular systolic function is normal with an estimated ejection fraction in the range of 55-60%. Normal left ventricular size. RIGHT VENTRICLE Normal right ventricular size and systolic function. LEFT ATRIUM The left atrial size is normal. RIGHT ATRIUM The right atrial size is normal. ATRIAL SEPTUM Normal atrial septal thickness without atrial level shunting by limited color doppler interrogation. AORTA The aortic root and proximal ascending aorta are normal in size on limited imaging. MITRAL VALVE Structurally normal mitral valve. Aqhnp-[id number] mitral valve regurgitation. AORTIC VALVE The aortic valve is not well visualized. No aortic valve stenosis or regurgitation. TRICUSPID VALVE Structurally normal tricuspid valve. There is mild tricuspid valve regurgitation. PULMONARY VALVE No pulmonary valve regurgitation or stenosis. The pulmonary valve is not well visualized. VESSELS The inferior vena cava is dilated. PERICARDIUM No pericardial effusion. Raphael Art MD (Electronically Signed) Final Date:06 July 2017 14:52
--- NOTE | 2017-07-06 14:56 | RADRPT ---
EXAM DATE/TIME: 07/06/2017 14:00 [facility] COMPARISON: CHEST SINGLE AP, July 06, 2017, 10:40. INDICATIONS : Post central line placement. MEDICAL HISTORY : Hypertension. Dementia. Cardiovascular disease SURGICAL HISTORY : None. ENCOUNTER: Subsequent ACUITY: 1 day PAIN SCORE: Non-responsive. LOCATION: Bilateral chest FINDINGS: The cardiac silhouette is normal in transverse diameter. The lungs are hyperinflated but clear. No ef fusions are identified. Right subclavian line is in place with its tip superiorly into the jugular ve in.. A nasogastric tube is in place with its tip in the stomach. Small apical pneumothorax is present without tension. CONCLUSION: 1. Subclavian line likely in the right internal jugular vein. Small pneumothorax without tension Shawn Nick MD on July 06, 2017 at 14:50 Board Certified Radiologist. This report was verified electronically.
[2017-07-06] MEDS: INSULIN ASPART SUPPLEMENTAL SCALE SQ SCH ×2 (16:00→20:00)
--- NOTE | 2017-07-06 16:33 | PD.PROCEDR ---
Central Line Procedure REASON FOR PROCEDURE Central venous access PROCEDURE PERFORMED Central line placement: RIJ central line, US guided (Inability to thread guidewire from R subclavian approach) CONSENT Emergency procedure, septic shock ANESTHESIA Local injection of 1% Lidocaine DESCRIPTION OF THE PROCEDURE The patient was placed in supine, mild Trendelenburg position. The area was exposed and cleansed with ChloraPrep, times two. Large sterile drape was used to cover the patient, with the site exposed, under sterile conditions including cap, face mask, sterile gown, and sterile gloves. On single attempt, the introducer needle was inserted with negative pressure in syringe and venous flash was obtained. The guide wire was then advanced without any restriction and the needle was removed. The dilator was used without any complications. Using Seldinger technique the 7F 20 CM catheter was advanced over the guide wire to a depth of 17 centimeters. The guide wire was removed. All ports were aspirated with dark venous blood return and flushed easily with sterile saline. All ports were capped. Antibiotic disc was placed around central line at puncture site. The central line was secured to the skin with two interrupted 2.0 silk sutures. The area was bandaged with sterile see-through central line bandage. RADIOLOGICAL DATA Ultrasound guidance was used to locate RIJ. COMPLICATIONS: No apparent complications ESTIMATED BLOOD LOSS: Less than 1 cc. Winnie Rodrigues MD Jul 06, 2017 16:33
--- NOTE | 2017-07-06 16:39 | RADRPT ---
EXAM DATE/TIME: 07/06/2017 16:01 [facility] COMPARISON: CHEST SINGLE AP, July 06, 2017, 14:00. INDICATIONS : Right Internal jugular central line placement. MEDICAL HISTORY : Hypertension. Cardiovascular disease. Dementia SURGICAL HISTORY : None. ENCOUNTER: Subsequent ACUITY: 1 day PAIN SCORE: Non-responsive. LOCATION: Right chest FINDINGS: The cardiac silhouette is normal in transverse diameter. Right internal jugular line is in place in t he expected position. There is a slight increase in the size of the previously seen pneumothorax. The re are no signs of tension. A nasogastric tube is in place with its tip in the stomach. CONCLUSION: 1. Right internal jugular line in satisfactory position 2. Increasing right pneumothorax Shawn Nick MD on July 06, 2017 at 16:37 Board Certified Radiologist. This report was verified electronically.
--- NOTE | 2017-07-06 17:29 | RADRPT ---
EXAM DATE/TIME: 07/06/2017 17:07 [facility] COMPARISON: CHEST SINGLE AP, July 06, 2017, 16:01. INDICATIONS : Confirm chest tube placement. MEDICAL HISTORY : Hypertension. Cardiovascular disease. Dimentia SURGICAL HISTORY : None. ENCOUNTER: Subsequent ACUITY: 1 day PAIN SCORE: Non-responsive. LOCATION: Bilateral chest FINDINGS: The cardiac silhouette is normal in transverse diameter. Right chest tubes in place with decreasing r ight pneumothorax. Support lines and tubes are in satisfactory position. There is no evidence of pne umonia. CONCLUSION: 1. Right chest tube as above. Resolving right pneumothorax Shawn Nick MD on July 06, 2017 at 17:27 Board Certified Radiologist. This report was verified electronically.
[2017-07-06] MEDS: DILTIAZEM INJ 125 MG in SODIUM CHLORIDE 0.9% INJ 100 ML IV PRN (17:40)
[2017-07-06] MEDS: SODIUM BICARBONATE 8.4% INJ 150 MEQ in WATER STERILE FOR INJ 850 ML IV SCH ×2 (17:40→23:03)
[2017-07-06] MEDS: methylPREDNISolone SOD SUCC 125 MG/2 ML VIAL IV PUSH SCH (17:41)
--- NOTE | 2017-07-06 18:01 | PD.PROCEDR ---
Procedure Note Procedure Right pigtail chest tube placement Indication pneumothorax Procedure Emergency procedure, unable to obtain consent. Patient was placed in optimal position. Right posterior lower chest was marked with ultrasound. Full barrier and sterile precautions were used, skin and subcutaneous tissue at the marked site was infiltrated with 1% lidocaine. A small skin carey was made with scalpel. Introducer needle was placed into the pleural space and momin of air was obtained. The guidewire was inserted through the needle and the needle was removed. Track was dilated and a 10 [place] pigtail catheter was introduced into the pleural space using Seldinger technique. Wire was removed and pigtail catheter was attached to the pleural vac and placed on -20 wall suction. Chest x -ray postprocedure pending at this time. Patient tolerated procedure well Winnie Rodrigues MD Jul 06, 2017 18:01
[2017-07-06] MEDS: NOREPINEPHRINE 4 MG/D5W 250 ML IV PRN (18:07)
[2017-07-06] MEDS: VASOPRESSIN INJ 40 UNITS in DEXTROSE 5% IN WATER 100ML INJ 98 ML IV SCH ×2 (21:56)
[2017-07-06] MEDS ORDERED: PHENYLEPHRINE INJ 160 MG in DEXTROSE 5% IN WATE 500 ML INJ 484 ML IV PRN ×2 (22:00)
[2017-07-06] MEDS ORDERED: TERBUTALINE INJ 1 MG/ML AMP SQ PRN (22:00)
[2017-07-06] MEDS ORDERED: VASOPRESSIN 20 UNITS/ML VIAL (IVTITR) ONE (22:02)
[2017-07-06 22:16] LABS: BLOOD GAS CARBOXYHEMOGLOBIN 0.9 % (0-4); BLOOD GAS HCO3 19 mmol/L (22-26); BLOOD GAS METHEMOGLOBIN 1.2 % (0-2); BLOOD GAS O2 HGB SATURATION 98 % (90-100); BLOOD GAS OXYGEN CONTENT 19.2 Vol % (12.0-20.0); BLOOD GAS PCO2 38 mmHg (38-42); BLOOD GAS PO2 337 mmHg (61-120); BLOOD GAS TOTAL HGB 13.4 G/DL (12.0-16.0); TEMP CORR TO 98.6
[2017-07-06 22:18] LABS: CRITICAL VALUE YES; OXYGEN DEVICE VENTILATOR
[2017-07-06 22:19] LABS: DRAW SITE ALINE; FIO2 70 %; STAT YES
--- NOTE | 2017-07-06 22:39 | RADRPT ---
EXAM DATE/TIME: 07/06/2017 22:09 [facility] COMPARISON: CHEST SINGLE AP, July 06, 2017, 17:07. INDICATIONS : Status of pneumothorax as seen on previous film. MEDICAL HISTORY : Hypertension. Cardiovascular disease. SURGICAL HISTORY : None. ENCOUNTER: Subsequent ACUITY: 1 day PAIN SCORE: Non-responsive. LOCATION: Bilateral chest FINDINGS: The small right apical pneumothorax is not appreciated. Support devices which include endotracheal tube, nasogastric tube, right jugular central line and sma ll right-sided chest tubes are in stable position. Lungs are hyperinflated but otherwise clear. CONCLUSION: Small right apical pneumothorax no longer evident. COPD Otherwise stable chest and support devices. Yazan Ocasio MD on July 06, 2017 at 22:35 Board Certified Radiologist. This report was verified electronically.
[2017-07-06] MEDS: ZIPRASIDONE HCL 60 MG CAP PO SCH (22:46)
[2017-07-06] MEDS: metroNIDAZOLE 500 MG INJ 100 ML IV SCH (22:46)
[2017-07-06] MEDS: SODIUM CHLORIDE 0.9% FLUSH 10 ML FLUSH IV FLUSH SCH (22:48)
[2017-07-06] MEDS: CHLORHEXIDINE 0.12% (ORAL KIT) 15 ML CUP MT SCH (22:49)
[2017-07-06 23:00] LABS: MAGNESIUM 2.2 MG/DL (1.5-2.5)
[2017-07-07] VITALS (20 sets, daily range): BP systolic 87–134; BP diastolic 51–73; PULSE 62–105; RESP 14–18; TEMP 97.8–98.6; O2SAT 98–100
[2017-07-07] MEDS: methylPREDNISolone SOD SUCC 125 MG/2 ML VIAL IV PUSH SCH ×5 (00:23→23:49)
[2017-07-07] MEDS: NOREPINEPHRINE 4 MG/D5W 250 ML IV PRN ×4 (02:44→18:31)
[2017-07-07] MEDS: CEFEPIME INJ 1,000 MG in SODIUM CHLORIDE 0.9% INJ 100 ML IV SCH ×3 (02:44→23:55)
[2017-07-07] MEDS: metroNIDAZOLE 500 MG INJ 100 ML IV SCH ×3 (02:52→23:57)
[2017-07-07] MEDS: CHLORHEXIDINE GLUCONATE 2 % 1 PACK (2 CLOTHS) TOP SCH (02:52)
[2017-07-07] MEDS: INSULIN ASPART SUPPLEMENTAL SCALE SQ SCH ×7 (02:52→23:58)
[2017-07-07] MEDS: RESP: ALBUTEROL 2.5 MG/IPRATROPIUM 0.5 MG NEB (SCH) NEB ×4 (03:43→19:56)
[2017-07-07 05:21] LABS: AUTOMATED NEUTROPHIL # 14.2 TH/MM3 (1.8-7.7); HEMATOCRIT 37.2 % (39.0-51.0); HEMO FLAGS DIFF FINAL; LYMPH % 1.2 % (9.0-44.0); LYMPHOCYTE # 0.2 TH/MM3 (1.0-4.8); MEAN CELL VOLUME 92.6 FL (80.0-100.0); MEAN CORPUSCULAR HEMOGLOBIN 30.7 PG (27.0-34.0); MEAN CORPUSCULAR HGB CONC 33.2 % (32.0-36.0); MONO % 1.8 % (0.0-8.0); PLATELET COUNT 244 TH/MM3 (150-450); RED BLOOD COUNT 4.02 MIL/MM3 (4.50-5.90); RED CELL DISTRIBUTION WIDTH 14.6 % (11.6-17.2); WHITE BLOOD COUNT 14.6 TH/MM3 (4.0-11.0)
[2017-07-07 05:52] LABS: ANION GAP 14 MEQ/L (5-15); BICARBONATE 24.1 MEQ/L (21.0-32.0); BLOOD UREA NITROGEN 73 MG/DL (7-18); CHLORIDE 113 MEQ/L (98-107); GLOMERULAR FILTRATION RATE 23 ML/MIN (>89); POTASSIUM 3.4 MEQ/L (3.5-5.1); SODIUM (NA) 151 MEQ/L (136-145)
[2017-07-07 05:54] LABS: ALT (GPT) 20 U/L (12-78); AST (GOT) 14 U/L (15-37)
[2017-07-07 05:59] LABS: ALKALINE PHOSPHATASE 89 U/L (45-117); TOTAL BILIRUBIN ADULT 0.4 MG/DL (0.2-1.0)
[2017-07-07 06:00] LABS: CREATINE KINASE 87 U/L (39-308)
[2017-07-07] MEDS: SODIUM BICARBONATE 8.4% INJ 150 MEQ in WATER STERILE FOR INJ 850 ML IV SCH (06:10)
[2017-07-07] MEDS: DILTIAZEM INJ 125 MG in SODIUM CHLORIDE 0.9% INJ 100 ML IV PRN (06:11)
[2017-07-07] MEDS: CHLORHEXIDINE 0.12% (ORAL KIT) 15 ML CUP MT SCH ×2 (08:00→20:00)
[2017-07-07] MEDS: ASPIRIN 325 MG TAB PO SCH (09:37)
[2017-07-07] MEDS: ZIPRASIDONE HCL 60 MG CAP PO SCH ×2 (09:37→23:49)
[2017-07-07] MEDS: SODIUM CHLORIDE 0.9% FLUSH 10 ML FLUSH IV FLUSH SCH ×2 (09:38→23:50)
[2017-07-07] MEDS: BENZTROPINE MESYLATE 2 MG TAB PO SCH (09:38)
[2017-07-07] MEDS: PANTOPRAZOLE SODIUM 40 MG VIAL IV PUSH SCH (09:38)
[2017-07-07] MEDS: SODIUM CHLOR 0.45% 1000 ML INJ 1,000 ML IV SCH ×2 (09:48→23:05)
--- NOTE | 2017-07-07 11:10 | HHI.NPPN ---
Subjective Interval History He remains intubated, unresponsive on vent. ON 40% FiO2. . Chest tube in place. Renal function is improving. (Flor Yoon) Objective Data Data 07/07/17 07/08/17 19:00 07:00 Intake Total 658 ml Balance 658 ml IV Total 658 ml Vital Signs Date Time Temp Pulse Resp B/P (MAP) Pulse Ox O2 Delivery O2 Flow Rate FiO2 07/07/17 09:37 90 121/62 07/07/17 09:07 100 40 07/07/17 06:13 106 88/51 07/07/17 06:11 106 88/51 07/07/17 06:00 100 07/07/17 05:30 102 95/55 07/07/17 04:00 50 07/07/17 04:00 102 07/07/17 04:00 98.6 102 18 95/55 (68) 100 07/07/17 03:43 100 60 07/07/17 02:44 88 110/62 07/07/17 02:00 98 07/07/17 00:05 100 60 07/07/17 00:00 98.4 87 16 111/63 (79) 100 07/07/17 00:00 87 07/07/17 00:00 50 07/06/17 22:44 95 80/65 07/06/17 22:00 97 07/06/17 21:00 105 93/65 07/06/17 20:00 50 07/06/17 20:00 98.4 103 20 100 93/73 (80) 07/06/17 20:00 103 07/06/17 20:00 103 93/73 07/06/17 19:55 100 70 07/06/17 18:40 126 07/06/17 18:10 142 07/06/17 18:07 145 101/68 07/06/17 18:00 142 07/06/17 18:00 97.3 111 16 99/78 (85) 95 07/06/17 17:40 145 104/63 07/06/17 17:00 140 07/06/17 17:00 140 98/61 07/06/17 17:00 96.8 69 16 97/64 (75) 95 07/06/17 16:00 50 07/06/17 16:00 138 74/48 07/06/17 16:00 96.9 138 16 74/48 (57) 93 07/06/17 16:00 138 07/06/17 15:00 136 07/06/17 15:00 137 89/61 07/06/17 14:30 135 94/61 07/06/17 14:25 98 60 07/06/17 14:20 136 106/63 07/06/17 14:00 138 07/06/17 14:00 96.0 136 16 106/63 (77) 91 07/06/17 12:20 07/06/17 12:00 96.4 126 14 102/62 (75) 100 Ventilator 45 07/06/17 11:30 96.6 132 14 100/60 (73) 100 Ventilator 45 07/06/17 11:05 144 (Flor Yoon) -: 07/07/17 0500 07/07/17 0500 Imaging Last [address] 07/06/17 0937 Signed Impressions: Service Date/Time: Thursday, July 06, 2017 12:08 - CONCLUSION: Stable CT scan of the brain compared to 05/01/2017. No new or significant changes. Sam Ruiz MD Chest X-Ray 07/06/17 0937 Signed Impressions: Service Date/Time: Thursday, July 06, 2017 10:40 - CONCLUSION: No acute disease. No significant change has occurred. Sam Ruiz MD Renal Ultrasound 07/06/17 0000 Signed Impressions: Service Date/Time: Thursday, July 06, 2017 12:59 - CONCLUSION: 1. Echogenic kidneys bilaterally compatible with medical renal disease. 2. Possible pelvic mass. CT scan is recommended for further evaluation if clinically indicated. Shawn Nick MD Chest X-Ray 07/06/17 0000 Signed Impressions: Service Date/Time: Thursday, July 06, 2017 22:09 - CONCLUSION: Small right apical pneumothorax no longer evident. COPD Otherwise stable chest and support devices. Yazan Ocasio MD Chest X-Ray 07/06/17 0000 Signed Impressions: Service Date/Time: Thursday, July 06, 2017 17:07 - CONCLUSION: 1. Right chest tube as above. Resolving right pneumothorax Shawn Nick MD Chest X-Ray 07/06/17 0000 Signed Impressions: Service Date/Time: Thursday, July 06, 2017 16:01 - CONCLUSION: 1. Right internal jugular line in satisfactory position 2. Increasing right pneumothorax Shawn Nick MD Chest X-Ray 07/06/17 0000 Signed Impressions: Service Date/Time: Thursday, July 06, 2017 14:00 - CONCLUSION: 1. Subclavian line likely in the right internal jugular vein. Small pneumothorax without tension Shawn Nick MD Tubes & Lines: Avery Tubes & Lines Comment chest tube, R IJ TLC (Flor Yoon MORTGAGE SPECIALIST) Physical Exam General Appearance: No Acute Distress, Comfortable, Sleeping, Malnourished (Flor Yoon MORTGAGE SPECIALIST) Eyes Eye Exam: Pupils Equal (Flor Yoon MORTGAGE SPECIALIST) Throat Throat Exam: Oral Mucosa [place] & Moist (Flor Yoon MORTGAGE SPECIALIST) Pulmonary Resp Exam: Clear Bilaterally, Breath Sounds Equal (Flor Yoon MORTGAGE SPECIALIST) Cardiology CV Exam: Regular, Normal Sinus Rhythm (Flor Yoon MORTGAGE SPECIALIST) Gastrointestinal/Abdomen GI Exam: Soft, Non-Tender (Flor Yoon M[employer]GAGE SPECIALIST) Musculoskeletal MS Exam: Joints Intact, Normal Tone, Unable to Ambulate (Flor Yoon MORTGAGE SPECIALIST) Integumentary Skin Exam: Warm, Dry (Flor Yoon MORTGAGE SPECIALIST) Extremeties Extremities Exam: No Edema, Pedal Pulses Palpable (Flor Yoon M[employer]GAGE SPECIALIST) Neurologic Neuro Exam: Unresponsive, Sedated (Flor Yoon) Assessment/Plan Assessment Summary: CAROLYN/Acute Renal Failure Problem List: (1) Acute kidney failure ICD Codes: N17.9 - Acute kidney failure, unspecified Plan: He has normal renal function at baseline CAROLYN due to intravascular volume depletion Renal function is improving, continue to monitor IVF changed to 1/2 NS Has hypernatremia, monitor for improvement Acidosis is improving Repeat renal panel in AM Use pressors if needed, maintain MAP > 65mmHg Monitor urine output, he is non oliguric (2) DM (diabetes mellitus) ICD Codes: E11.9 - Diabetes mellitus Status: Chronic Plan: Maintain glucose 140-180 mg/dL Avoid metformin given renal failure (3) Sepsis ICD Codes: A41.9 - Sepsis, unspecified organism Status: Acute Plan: Cultures are unavailable He is on cefepime and flagyl Appears to have UTI (Flor Yoon) Plan patient was seen and examined. Renal function has improved. Changed IVF to 1/ 2NS. Continue supportive care. Avoid nephrotoxic agents. (David Castellanos MD) Problem Qualifiers (1) Acute kidney failure: Qualified Codes: N17.9 - Acute kidney failure, unspecified (2) DM (diabetes mellitus): Flor Yoon Jul 07, 2017 11:10 David Castellanos MD Jul 07, 2017 11:18
[2017-07-07] MEDS: ENOXAPARIN SODIUM 30 MG/0.3 ML SYRINGE SQ SCH (11:30)
--- NOTE | 2017-07-07 12:09 | HHI.CCPN ---
Subjective Remarks/Hospital Course All history is obtained from discussion with the ED physician and chart review as the patient is intubated and altered. Patient is a 66-year-old male shelter resident with past medical history with schizophrenia dementia with behavioral disturbances, COPD, type 2 diabetes, hypertension, dyslipidemia, chronic atrial fibrillation. He apparently developed altered mentation, decreased level of consciousness while at the breakfast table in his NH. He passed out while eating breakfast, had been having syncopal episodes recently. Initial blood pressure systolic was in the 50s and patient was aggressively resuscitated in the ED with a total of 3 L normal saline. Broad-spectrum antibiotics given with Zosyn. The patient appears to be septic with urinary source. He's been started on Levophed to keep map above 65. Abnormal labs include Lactic acid is 4.7, sodium of 148, bicarbonate 12.4, BUN 125/creatinine 6.39, blood glucose was 639. WBC count was 16,000. There is evidence of aspiration as per the intubation note from Dr. Cai I evaluated the patient in the ED. He is intubated sedated but withdrawals to pain on all 4 extremities. His remains hypotensive tachycardic with A. fib with RVR. Levophed is at 2 mcg/m. Additional 1 L fluid boluses ordered, patient will need central line placement and further resuscitation. Antibiotics were modified to vancomycin cefepime and Flagyl. Due to recent history of diarrhea, C. difficile had been ordered 07/07: Remains intubated sedated. Versed just held. On Cardizem infusion for A. fib with RVR. Remains on Levophed at 19 mcg/m. UO excellent 2.8L in 24 hours. Creat improving 2.7 today. Objective Vital Signs Date Time Temp Pulse Resp B/P (MAP) Pulse Ox O2 Delivery O2 Flow Rate FiO2 07/07/17 11:38 100 40 07/07/17 10:00 94 07/07/17 09:37 121/62 07/07/17 08:00 97.9 16 07/06/17 12:00 Ventilator 07/06/17 09:45 15.00 Intake and Output 07/07/17 07/07/17 07/08/17 08:00 16:00 00:00 Intake Total 2923 ml 658 ml Output Total 1700 ml Balance 1223 ml 658 ml Result Diagram: 07/07/17 0500 07/07/17 0500 Other Results Laboratory Tests Test 07/06/17 21:58 Blood Gas Puncture Site CHLOÉ Blood Gas Patient Temperature 98.6 Blood Gas HCO3 19 mmol/L (22-26) Blood Gas Base Excess -6.0 mmol/L (-2-2) Blood Gas Oxygen Saturation 98 % (90-100) Arterial Blood pH 7.32 (7.380-7.420) Arterial Blood Partial Pressure CO2 38 mmHg (38-42) Arterial Blood Partial Pressure O2 337 mmHg (61-120) Arterial Blood Oxygen Content 19.2 Vol % (12.0-20.0) Arterial Blood Carboxyhemoglobin 0.9 % (0-4) Arterial Blood Methemoglobin 1.2 % (0-2) Blood Gas Hemoglobin 13.4 G/DL (12.0-16.0) Oxygen Delivery Device VENTILATOR Blood Gas Ventilator Setting SEE COMMENT Blood Gas Inspired Oxygen 70 % Imaging CXR no acute findings CT head negative for acute findings Objective Remarks GENERAL: Cachectic poorly kempt elderly male who is intubated encephalopathic SKIN: Pale and cool, dry HEAD: Atraumatic. Normocephalic. EYES: Pupils equal and round, sluggishly reactive. No scleral icterus. No injection or drainage. ENT: Mucous membranes dry. Edentulous. Orotracheally intubated NECK: Trachea midline. No JVD. Well-healed previous trach incision CARDIOVASCULAR: Atrial fibrillation rate controlled. No obvious murmur appreciated. On 19 mcg/m of Levophed RESPIRATORY: Coarse breath sounds bilaterally. Scattered wheezes. Well-healed left thoracotomy scar. Right chest tube with no air leak GASTROINTESTINAL: Abdomen soft, non-distended. Well-healed vertical abdominal scar MUSCULOSKELETAL: No obvious deformities. Erythema over bilateral knee NEUROLOGICAL: Intubated sedated, pupils are reactive. On sedation hold, Withdraws all 4 extremities. No purposeful movements noted A/P Assessment and Plan NEURO: Acute metabolic encephalopathy - Mental status change most likely secondary to metabolic encephalopathy from sepsis, and hypoperfusion from severe dehydration - Versed and fentanyl for sedation and ventilator synchrony - CT of the head negative for acute findings - Continue Geodon and benztropine RESP: Acute respiratory failure COPD with exacerbation - PRVC mechanical ventilation. Ventilator bundle - DuoNeb every 6 hours and when necessary - IV Solu-Medrol 60 mg every 6 hours - See ID section for broad-spectrum antibiotic - Sputum culture - Start weaning trial once mental status improves CV: Septic shock A. fib with RVR - Normal saline IV fluids 4L bolus and bicarbonate infusion at 150 ML per hour- change IV fluid to half-normal saline, DC bicarb gtt - Levophed to keep map above 65 - Cardizem for rate control - 2d echo. Continue aspirin - If A. fib is persistent >24 hours start on IV heparin but not a candidate for long-term anticoagulation GI: - Nothing by mouth, IV Protonix - Start tube feeds in 24 hours if patient is not extubated : Acute kidney failure - Acute kidney failure is most likely from severe dehydration, creat improving - Continue fluid resuscitation as above.Monitor renal function closely. Avery catheter. - Renal ultrasound, Nephrology following ID: Septic shock UTI C. difficile - On IV vanc, cefepime and Flagyl. Urine cx GNR. DC vanc - Urine and sputum culture, check for C. difficile HEME: - Monitor CBC, CMP, coags ENDO: Hyperglycemia, type 2 diabetes - Sliding-scale with NovoLog PROPH: Bilateral lower extremity SCDs. Lovenox for DVT prophylaxis. IV Protonix LINES: - Utilize peripheral IVs, central line if needed CC time 32 min Winnie Rodrigues MD Jul 07, 2017 12:09
[2017-07-07] MEDS: VASOPRESSIN INJ 40 UNITS in DEXTROSE 5% IN WATER 100ML INJ 98 ML IV SCH ×2 (14:36)
[2017-07-08] VITALS (20 sets, daily range): BP systolic 97–130; BP diastolic 50–74; PULSE 59–81; RESP 11–33; TEMP 96–98.2; O2SAT 97–100
[2017-07-08] MEDS: RESP: ALBUTEROL 2.5 MG/IPRATROPIUM 0.5 MG NEB (SCH) NEB ×4 (03:29→20:28)
[2017-07-08] MEDS: CEFEPIME INJ 1,000 MG in SODIUM CHLORIDE 0.9% INJ 100 ML IV SCH ×3 (03:42→22:03)
[2017-07-08] MEDS: CHLORHEXIDINE GLUCONATE 2 % 1 PACK (2 CLOTHS) TOP SCH (03:43)
[2017-07-08] MEDS: metroNIDAZOLE 500 MG INJ 100 ML IV SCH ×3 (03:43→22:04)
[2017-07-08] MEDS: INSULIN ASPART SUPPLEMENTAL SCALE SQ SCH ×5 (03:43→21:50)
[2017-07-08] MEDS: methylPREDNISolone SOD SUCC 125 MG/2 ML VIAL IV PUSH SCH (03:45)
[2017-07-08 04:15] LABS: AUTOMATED NEUTROPHIL # 10.4 TH/MM3 (1.8-7.7); BASOPHIL % 0.1 % (0.0-2.0); HEMATOCRIT 34.2 % (39.0-51.0); HEMO FLAGS DIFF FINAL; LYMPH % 1.6 % (9.0-44.0); LYMPHOCYTE # 0.2 TH/MM3 (1.0-4.8); MEAN CELL VOLUME 91.8 FL (80.0-100.0); MEAN CORPUSCULAR HEMOGLOBIN 30.6 PG (27.0-34.0); MEAN CORPUSCULAR HGB CONC 33.3 % (32.0-36.0); MONO % 3.1 % (0.0-8.0); NEUT % 95.2 % (16.0-70.0); PLATELET COUNT 185 TH/MM3 (150-450); RED BLOOD COUNT 3.73 MIL/MM3 (4.50-5.90); RED CELL DISTRIBUTION WIDTH 14.2 % (11.6-17.2); WHITE BLOOD COUNT 10.9 TH/MM3 (4.0-11.0)
[2017-07-08] MEDS: SODIUM CHLOR 0.45% 1000 ML INJ 1,000 ML IV SCH (04:55)
[2017-07-08 05:00] LABS: ANION GAP 8 MEQ/L (5-15); BICARBONATE 29.3 MEQ/L (21.0-32.0); BLOOD UREA NITROGEN 54 MG/DL (7-18); CHLORIDE 112 MEQ/L (98-107); GLOMERULAR FILTRATION RATE 54 ML/MIN (>89); MAGNESIUM 2.1 MG/DL (1.5-2.5); SODIUM (NA) 149 MEQ/L (136-145)
[2017-07-08 05:07] LABS: POTASSIUM 2.9 MEQ/L (3.5-5.1)
[2017-07-08] MEDS ORDERED: ICU - POTASSIUM PHOSPHATE MONOBASIC 500 MG TAB PO PRN (05:45)
[2017-07-08] MEDS ORDERED: ICU - POTASSIUM CHLORIDE/AQUEOUS SOLN 40 MEQ/100 ML IVPB IV PRN (05:45)
[2017-07-08] MEDS ORDERED: ICU - MAGNESIUM SULFATE 4 GM/NS 100 ML IV PRN ×2 (05:45)
[2017-07-08] MEDS ORDERED: ICU - CALL ORDERING PHYSICIAN PRN (05:45)
[2017-07-08] MEDS ORDERED: ICU - POTASSIUM PHOSPHATE 30 MMOL/NS 250 ML IV PRN ×2 (05:45)
[2017-07-08] MEDS ORDERED: ICU - MAGNESIUM SULFATE 2 GM/NS 100 ML IV PRN ×2 (05:45)
[2017-07-08] MEDS ORDERED: POTASSIUM CHLORIDE 25 MEQ EFFERVESCENT TAB PO PRN (05:45)
[2017-07-08] MEDS ORDERED: ICU - POTASSIUM CHLORIDE/AQUEOUS SOLN 20 MEQ/100 ML IVPB IV PRN (05:45)
[2017-07-08] MEDS ORDERED: ICU - D/C ICU ELECTROLYTE ORDERS PRN (05:45)
[2017-07-08] MEDS ORDERED: ICU - MAGNESIUM OXIDE 400 MG TAB PO PRN (05:45)
--- NOTE | 2017-07-08 06:05 | RADRPT ---
EXAM DATE/TIME: 07/08/2017 04:05 [facility] COMPARISON: CHEST SINGLE AP, July 06, 2017, 22:09. INDICATIONS : Short of breath. MEDICAL HISTORY : Hypertension. Cardiovascular disease. SURGICAL HISTORY : None. ENCOUNTER: Subsequent ACUITY: 2 days PAIN SCORE: 0/10 LOCATION: Bilateral chest FINDINGS: The cardiac silhouette is normal in transverse diameter. Support lines and tubes are in satisfactory position. A right chest tube is in place with right apical pneumothorax. There are no signs of tensio n.No effusions are identified. CONCLUSION: Right chest tube with right pneumothorax without tension Shawn Nick MD on July 08, 2017 at 6:02 Board Certified Radiologist. This report was verified electronically.
[2017-07-08] MEDS: VASOPRESSIN INJ 40 UNITS in DEXTROSE 5% IN WATER 100ML INJ 98 ML IV SCH ×4 (07:16→23:56)
[2017-07-08] MEDS: CHLORHEXIDINE 0.12% (ORAL KIT) 15 ML CUP MT SCH ×2 (08:00→21:50)
--- NOTE | 2017-07-08 08:33 | HHI.CCPN ---
Subjective Remarks/Hospital Course All history is obtained from discussion with the ED physician and chart review as the patient is intubated and altered. Patient is a 66-year-old male detention resident with past medical history with schizophrenia dementia with behavioral disturbances, COPD, type 2 diabetes, hypertension, dyslipidemia, chronic atrial fibrillation. He apparently developed altered mentation, decreased level of consciousness while at the breakfast table in his NH. He passed out while eating breakfast, had been having syncopal episodes recently. Initial blood pressure systolic was in the 50s and patient was aggressively resuscitated in the ED with a total of 3 L normal saline. Broad-spectrum antibiotics given with Zosyn. The patient appears to be septic with urinary source. He's been started on Levophed to keep map above 65. Abnormal labs include Lactic acid is 4.7, sodium of 148, bicarbonate 12.4, BUN 125/creatinine 6.39, blood glucose was 639. WBC count was 16,000. There is evidence of aspiration as per the intubation note from Dr. Cai I evaluated the patient in the ED. He is intubated sedated but withdrawals to pain on all 4 extremities. His remains hypotensive tachycardic with A. fib with RVR. Levophed is at 2 mcg/m. Additional 1 L fluid boluses ordered, patient will need central line placement and further resuscitation. Antibiotics were modified to vancomycin cefepime and Flagyl. Due to recent history of diarrhea, C. difficile had been ordered 07/07: Remains intubated sedated. Versed just held. On Cardizem infusion for A. fib with RVR. Remains on Levophed at 19 mcg/m. UO excellent 2.8L in 24 hours. Creat improving 2.7 today. 07/08: Remains intubated sedated Versed was restarted yesterday. There is expansion of right pneumothorax, chest tube patency checked. Will repeat chest x-ray. Creatinine now improved to 1.3 but encephalopathy persists. UO 1.3L. sodium is improved to 149, from 151 Objective Vital Signs Date Time Temp Pulse Resp B/P (MAP) Pulse Ox O2 Delivery O2 Flow Rate FiO2 07/08/17 07:26 100 40 07/08/17 06:00 65 07/08/17 04:00 97.0 16 105/68 (80) 120/62 (81) 07/06/17 12:00 Ventilator 07/06/17 09:45 15.00 Intake and Output 07/08/17 07/08/17 07/08/17 07:59 15:59 23:59 Intake Total 3645 ml Output Total 450 ml Balance 3195 ml Result Diagram: 07/08/175 07/08/17 0355 Imaging CXR no acute findings CT head negative for acute findings Objective Remarks GENERAL: Cachectic poorly kempt elderly male who is intubated encephalopathic SKIN: Pale and cool, dry HEAD: Atraumatic. Normocephalic. EYES: Pupils equal and round, sluggishly reactive. ENT: Mucous membranes dry. Edentulous. Orotracheally intubated NECK: Trachea midline. No JVD. Well-healed previous trach incision CARDIOVASCULAR: Atrial fibrillation rate controlled. No obvious murmur appreciated. On 19 mcg/m of Levophed RESPIRATORY: Coarse breath sounds bilaterally, and entry is diminished on the right side. Scattered wheezes. Well-healed left thoracotomy scar. Right chest tube with min air leak (after checking patency of chest tube) GASTROINTESTINAL: Abdomen soft, non-distended. Well-healed vertical abdominal scar MUSCULOSKELETAL: No obvious deformities. Erythema over bilateral knee NEUROLOGICAL: Intubated sedated, pupils are reactive. On sedation hold, Withdraws all 4 extremities. Localizes with bilateral upper extremity A/P Assessment and Plan NEURO: Acute metabolic encephalopathy - Mental status change most likely secondary to metabolic encephalopathy from sepsis, and hypoperfusion from severe dehydration - Discontinue all IV sedation - CT of the head negative for acute findings - Continue Geodon and benztropine RESP: Acute respiratory failure COPD with exacerbation Right-sided pneumothorax - PRVC mechanical ventilation. Ventilator bundle, start SBT - DuoNeb every 6 hours and when necessary - IV Solu-Medrol 60 mg every 6 hours, reduce to 40 q8 - There is expansion of right-sided pneumothorax, chest tube patency reestablished, repeat chest x-ray. May need second chest tube - See ID section for broad-spectrum antibiotic - F/U Sputum culture CV: Septic shock A. fib with RVR - s/p Normal saline IV fluids 4L bolus. Currently on half-normal saline infusion - Levophed to keep map above 65 - Cardizem for rate control - 2d echo EF 55-60%. Continue aspirin - If A. fib is persistent >24 hours start on IV heparin but not a candidate for long-term anticoagulation GI: - Nothing by mouth, IV Protonix - Start tube feeds with Jevity : Acute kidney failure - Acute kidney failure is most likely from severe dehydration, creat improving, now 1.33 - Continue fluid resuscitation as above.Monitor renal function closely. Avery catheter. - Renal ultrasound, Nephrology following ID: Septic shock UTI - On IV vanc, cefepime and Flagyl. Urine cx GNR. DCd vanc - Urine and sputum culture, Neg for C. difficile HEME: - Monitor CBC, CMP, coags ENDO: Hyperglycemia, type 2 diabetes - Sliding-scale with NovoLog PROPH: Bilateral lower extremity SCDs. Lovenox for DVT prophylaxis. IV Protonix LINES: - Utilize peripheral IVs, central line if needed CC time 32 min Winnie Rodrigues MD Jul 08, 2017 08:33
[2017-07-08] MEDS: BENZTROPINE MESYLATE 2 MG TAB PO SCH (09:00)
[2017-07-08] MEDS: ASPIRIN 325 MG TAB PO SCH (09:00)
[2017-07-08] MEDS: ZIPRASIDONE HCL 60 MG CAP PO SCH ×2 (09:00→21:49)
[2017-07-08] MEDS: PANTOPRAZOLE SODIUM 40 MG VIAL IV PUSH SCH (09:00)
[2017-07-08] MEDS: SODIUM CHLORIDE 0.9% FLUSH 10 ML FLUSH IV FLUSH SCH ×2 (09:00→21:50)
[2017-07-08 09:31] LABS: BLOOD GAS BASE EXCESS 1.1 mmol/L (-2-2); BLOOD GAS HCO3 26 mmol/L (22-26); BLOOD GAS METHEMOGLOBIN 1.2 % (0-2); BLOOD GAS O2 HGB SATURATION 97 % (90-100); BLOOD GAS PCO2 45 mmHg (38-42); BLOOD GAS PO2 162 mmHg (61-120); BLOOD GAS TOTAL HGB 10.8 G/DL (12.0-16.0); CRITICAL VALUE NO; OXYGEN DEVICE VENTILATOR; TEMP CORR TO 98.6
[2017-07-08 09:32] LABS: DRAW SITE ART LINE; FIO2 40 %; STAT NO; ULNAR PULSE PRESENT; VENT SETTINGS CPAP 5/PS5/40%
--- NOTE | 2017-07-08 10:08 | HHI.NPPN ---
Subjective Renal Failure: Acute Interval History Remains intubated, on CPAP trial. Renal function is better. Noted to be hypokalemic today, on replacement protocol. Review of Systems General General Remarks unable to obtain Objective Data Data Vital Signs Date Time Temp Pulse Resp B/P (MAP) Pulse Ox O2 Delivery O2 Flow Rate FiO2 07/08/17 08:41 40 07/08/17 08:41 100 40 07/08/17 08:00 59 07/08/17 08:00 40 07/08/17 08:00 96.0 71 33 97/57 (70) 100 118/56 (76) 07/08/17 07:26 100 40 07/08/17 06:00 65 07/08/17 04:26 100 40 07/08/17 04:00 64 07/08/17 04:00 40 07/08/17 04:00 97.0 67 16 105/68 (80) 100 120/62 (81) 07/08/17 02:00 66 07/08/17 01:12 100 40 07/08/17 00:00 97.9 62 16 118/70 (86) 100 106/74 (85) 07/08/17 00:00 62 07/08/17 00:00 40 07/07/17 23:30 98 40 07/07/17 22:10 100 40 07/07/17 22:00 62 07/07/17 20:00 98.2 67 14 116/71 (86) 100 134/64 (87) 07/07/17 20:00 40 07/07/17 20:00 67 07/07/17 19:56 100 40 07/07/17 18:31 70 106/68 07/07/17 18:00 74 07/07/17 16:00 98.2 71 15 109/70 (83) 100 131/59 (83) 07/07/17 16:00 71 07/07/17 16:00 40 07/07/17 15:43 100 40 07/07/17 14:00 68 07/07/17 13:55 40 07/07/17 12:00 40 07/07/17 12:00 73 07/07/17 12:00 97.8 73 18 117/73 (88) 100 99/65 (76) 07/07/17 11:38 100 40 -: 07/08/17 0355 07/08/17 0355 Imaging Last 72 hours Impressions Chest X-Ray 07/08/17 0600 Signed Impressions: Service Date/Time: Saturday, July 08, 2017 04:05 - CONCLUSION: Right chest tube with right pneumothorax without tension Shawn Nick MD Head CT 07/06/17 0937 Signed Impressions: Service Date/Time: Thursday, July 06, 2017 12:08 - CONCLUSION: Stable CT scan of the brain compared to 05/01/2017. No new or significant changes. Sam Ruiz MD Chest X-Ray 07/06/17 0937 Signed Impressions: Service Date/Time: Thursday, July 06, 2017 10:40 - CONCLUSION: No acute disease. No significant change has occurred. Sam Ruiz MD Renal Ultrasound 07/06/17 0000 Signed Impressions: Service Date/Time: Thursday, July 06, 2017 12:59 - CONCLUSION: 1. Echogenic kidneys bilaterally compatible with medical renal disease. 2. Possible pelvic mass. CT scan is recommended for further evaluation if clinically indicated. Shawn Nick MD Chest X-Ray 07/06/17 0000 Signed Impressions: Service Date/Time: Thursday, July 06, 2017 22:09 - CONCLUSION: Small right apical pneumothorax no longer evident. COPD Otherwise stable chest and support devices. Yazan Ocasio MD Chest X-Ray 07/06/17 0000 Signed Impressions: Service Date/Time: Thursday, July 06, 2017 17:07 - CONCLUSION: 1. Right chest tube as above. Resolving right pneumothorax Shawn Nick MD Chest X-Ray 07/06/17 0000 Signed Impressions: Service Date/Time: Thursday, July 06, 2017 16:01 - CONCLUSION: 1. Right internal jugular line in satisfactory position 2. Increasing right pneumothorax Shawn Nick MD Chest X-Ray 07/06/17 0000 Signed Impressions: Service Date/Time: Thursday, July 06, 2017 14:00 - CONCLUSION: 1. Subclavian line likely in the right internal jugular vein. Small pneumothorax without tension Shawn Nick MD Tubes & Lines: [place] Tubes & Lines Comment chest tube, R IJ TLC Physical Exam General Appearance: No Acute Distress, Comfortable, Sleeping, Malnourished Eyes Eye Exam: Pupils Equal Throat Throat Exam: Oral Mucosa [place] & Moist Pulmonary Resp Exam: Clear Bilaterally, Breath Sounds Equal, Decreased Bases Resp Remarks chest tube on right Cardiology CV Exam: Regular, Normal Sinus Rhythm Gastrointestinal/Abdomen GI Exam: Soft, Non-Tender, Bowel Sounds Present Musculoskeletal MS Exam: Joints Intact, Normal Tone, Unable to Ambulate Integumentary Skin Exam: Warm, Dry Extremeties Extremities Exam: No Edema, Pedal Pulses Palpable Neurologic Neuro Exam: Unresponsive, Sedated Assessment/Plan Assessment Summary: CAROLYN/Acute Renal Failure Electrolyte Assessment: Hypokalemia Assessment Remarks hypophosphatemia Problem List: (1) Acute kidney failure ICD Codes: N17.9 - Acute kidney failure, unspecified Plan: He has normal renal function at baseline CAROLYN due to intravascular volume depletion Renal function continues to improve, monitor for recovery On 09/23 NS @ 75, continue Has hypernatremia, give free water via OG tube Hypokalemia and hypophosphatemia, on replacement protocols, follow up labs Use pressors if needed, maintain MAP > 65mmHg, currently not requiring Monitor urine output, he is non oliguric with a valles catheter His US suggested pelvic mass, consider CT without contrast to evaluate Avoid nephrotoxins Repeat renal panel in AM (2) DM (diabetes mellitus) ICD Codes: E11.9 - Diabetes mellitus Status: Chronic Plan: Maintain glucose 140-180 mg/dL Avoid metformin given renal failure (3) Sepsis ICD Codes: A41.9 - Sepsis, unspecified organism Status: Acute Plan: Cultures are unavailable He is on cefepime and flagyl Appears to have UTI Problem Qualifiers (1) Acute kidney failure: Qualified Codes: N17.9 - Acute kidney failure, unspecified (2) DM (diabetes mellitus): Flor Yoon Jul 08, 2017 10:08
[2017-07-08] MEDS ORDERED: VANCOMYCIN INJ 1,250 MG in SODIUM CHLOR 0.9% 250 ML INJ 250 ML IV ONE (11:00)
--- NOTE | 2017-07-08 11:06 | RADRPT ---
EXAM DATE/TIME: 07/08/2017 10:24 [facility] COMPARISON: CHEST SINGLE AP, July 08, 2017, 4:05. INDICATIONS : Evaluate for pneumothorax. MEDICAL HISTORY : Hypertension. Cardiovascular disease SURGICAL HISTORY : None. ENCOUNTER: Subsequent ACUITY: 2 days PAIN SCORE: Non-responsive. LOCATION: Bilateral chest FINDINGS: A single view of the chest demonstrates a persistent pneumothorax on the right. A small [place] loop cat heter is seen just below the level of the hilum in the right hemithorax. Stable position of life supp ort tubes including a right IJ central venous catheter, nasogastric tube and endotracheal tube. Heart size is normal. Left lung is clear. 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 Osseous structures are otherwise intact CONCLUSION: 1. Stable right-sided pneumothorax with stable position of the [place] loop thoracostomy tube as above. 2. Stable position of life support tubes. 3. 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 Merrill Rosario MD on July 08, 2017 at 10:57 Board Certified Radiologist. This report was verified electronically.
[2017-07-08] MEDS: ENOXAPARIN SODIUM 30 MG/0.3 ML SYRINGE SQ SCH (11:30)
[2017-07-08] MEDS: POTASSIUM CHLORIDE INJ 20 MEQ, SODIUM CHLORIDE 23.4% INJ 38.5 MEQ in WATER STERILE FOR ... IV SCH (13:00)
[2017-07-08] MEDS ORDERED: LIDOCAINE HCL 1% 50 ML VIAL ONE (13:19)
[2017-07-08] MEDS: methylPREDNISolone SOD SUCC 40 MG/1 ML VIAL IV PUSH SCH ×2 (14:00→21:49)
--- NOTE | 2017-07-08 15:02 | RADRPT ---
EXAM DATE/TIME: 07/08/2017 14:06 [facility] COMPARISON: CHEST SINGLE AP, July 08, 2017, 10:24. INDICATIONS : Post chest tube placement. MEDICAL HISTORY : Hypertension. Cardiovascular disease. [place] SURGICAL HISTORY : None. ENCOUNTER: Subsequent ACUITY: 2 days PAIN SCORE: Non-responsive. LOCATION: Bilateral chest FINDINGS: There is 2 right-sided chest tubes in place. There continues to be a right apical pneumothorax with 2 .5 cm of separation at the apex. The lungs are otherwise grossly clear. No pleural effusions. The hea rt size is within normal limits. The support devices remain in place. No other significant changes co mpared to the prior study. CONCLUSION: 1. 2 right-sided chest tubes in place. 2. Persistent right apical pneumothorax with 2.5 cm of separation. Sam Ruiz MD on July 08, 2017 at 14:59 Board Certified Radiologist. This report was verified electronically.
[2017-07-08 16:21] LABS: MAGNESIUM 2.1 MG/DL (1.5-2.5)
--- NOTE | 2017-07-08 19:09 | PD.PROCEDR ---
Procedure Note Procedure Right 20 F chest tube placement Indication pneumothorax Procedure: Informed consent was obtained Patient was placed in optimal position. Right posterior lower chest was prepped. Full barrier and sterile precautions were used, sThe area of the fourth intercostal interspace was infiltrated with 1% lidocaine plain. A 2 centimeter incision was made with a scalpel at the fourth intercostal space. Blunt dissection to the fourth intercostal interspace performed and the pleura was punctured with immediate momin of air. Finger was inserted in the space and thoracostomy tube was placed, directed posteriorly and superiorly. Tube draining well. The thoracostomy tube was secured with suture. Sterile seal dressing placed. Patient tolerated procedure well. Winnie Rodrigues MD Jul 08, 2017 19:09
[2017-07-09] VITALS (26 sets, daily range): BP systolic 93–223; BP diastolic 57–223; PULSE 67–79; RESP 12–37; O2SAT 65–100
[2017-07-09] MEDS: INSULIN ASPART SUPPLEMENTAL SCALE SQ SCH ×7 (00:39→23:38)
[2017-07-09] MEDS: metroNIDAZOLE 500 MG INJ 100 ML IV SCH ×3 (02:15→20:11)
[2017-07-09] MEDS: CEFEPIME INJ 1,000 MG in SODIUM CHLORIDE 0.9% INJ 100 ML IV SCH ×3 (03:28→20:12)
[2017-07-09] MEDS: RESP: ALBUTEROL 2.5 MG/IPRATROPIUM 0.5 MG NEB (SCH) NEB ×4 (03:52→20:02)
[2017-07-09] MEDS: CHLORHEXIDINE GLUCONATE 2 % 1 PACK (2 CLOTHS) TOP SCH (04:00)
[2017-07-09] MEDS: methylPREDNISolone SOD SUCC 40 MG/1 ML VIAL IV PUSH SCH ×3 (05:17→20:28)
[2017-07-09] MEDS: ZIPRASIDONE HCL 60 MG CAP PO SCH ×2 (08:46→20:13)
[2017-07-09] MEDS: ASPIRIN 325 MG TAB PO SCH (08:46)
[2017-07-09] MEDS: PANTOPRAZOLE SODIUM 40 MG VIAL IV PUSH SCH (08:46)
[2017-07-09] MEDS: BENZTROPINE MESYLATE 2 MG TAB PO SCH (08:46)
[2017-07-09] MEDS: SODIUM CHLORIDE 0.9% FLUSH 10 ML FLUSH IV FLUSH SCH ×2 (08:47→20:11)
--- NOTE | 2017-07-09 09:58 | HHI.NPPN ---
Subjective Renal Failure: Acute Interval History He is awake on CPAP. Chest tube was dislodged overnight, replaced by pipelines supervisor. To be extubated. Labs from today are not available but have been drawn and sent. (Flor Yoon) Review of Systems General General Remarks unable to obtain (Flor Yoon) Objective Data Data Vital Signs Date Time Temp Pulse Resp B/P (MAP) Pulse Ox O2 Delivery O2 Flow Rate FiO2 07/09/17 09:15 40 07/09/17 08:00 40 07/09/17 06:00 69 07/09/17 04:16 100 40 07/09/17 04:00 95.2 67 23 112/61 (78) 100 223/223 (223) 07/09/17 04:00 67 07/09/17 04:00 40 07/09/17 02:00 74 07/09/17 00:54 100 40 07/09/17 00:00 79 07/09/17 00:00 96.1 79 21 117/67 (84) 100 93/58 (70) 07/09/17 00:00 40 07/08/17 22:00 77 07/08/17 20:28 97 40 07/08/17 20:00 40 07/08/17 20:00 81 07/08/17 20:00 98.2 81 21 130/73 (92) 100 106/72 (83) 07/08/17 18:00 67 07/08/17 16:55 100 40 07/08/17 16:00 50 07/08/17 16:00 97.7 68 16 113/60 (77) 100 118/50 (72) 07/08/17 16:00 68 07/08/17 14:00 64 07/08/17 13:45 100 40 07/08/17 12:00 62 07/08/17 12:00 40 07/08/17 12:00 97.8 62 11 105/61 (76) 100 116/54 (74) 07/08/17 10:34 100 40 07/08/17 10:00 60 (Flor Yoon) -: 07/08/17 0355 07/08/17 1920 Microbiology 07/09/17 Gram Stain - Final, Resulted 10/18/17 Sputum Culture, Resulted Pending Imaging Last 72 hours Impressions Chest X-Ray 07/08/17 1000 Signed Impressions: Service Date/Time: Saturday, July 08, 2017 10:24 - CONCLUSION: 1. Stable right-sided pneumothorax with stable position of the [place] loop thoracostomy tube as above. 2. Stable position of life support tubes. 3. 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 Merrill Rosario MD Chest X-Ray 07/08/17 0600 Signed Impressions: Service Date/Time: Saturday, July 08, 2017 04:05 - CONCLUSION: Right chest tube with right pneumothorax without tension Shawn Nick MD Chest X-Ray 07/08/17 0000 Signed Impressions: Service Date/Time: Saturday, July 08, 2017 14:06 - CONCLUSION: 1. 2 right-sided chest tubes in place. 2. Persistent right apical pneumothorax with 2.5 cm of separation. Sam Ruiz MD Tubes & Lines: Valles Tubes & Lines Comment chest tube, R IJ TLC (Flor Yoon) Physical Exam General Appearance: No Acute Distress, Comfortable, Malnourished (Flor Yoon) Eyes Eye Exam: Pupils Equal (Flor Yoon) Throat Throat Exam: Oral Mucosa [place] & Moist (Flor Yoon) Pulmonary Resp Exam: Clear Bilaterally, Breath Sounds Equal, Decreased Bases Resp Remarks chest tube on right (Flor Yoon) Cardiology CV Exam: Regular, Normal Sinus Rhythm (Flor Yoon) Gastrointestinal/Abdomen GI Exam: Soft, Non-Tender, Bowel Sounds Present (Flor Yoon) Musculoskeletal MS Exam: Joints Intact, Normal Tone, Unable to Ambulate (Flor Yoon) Integumentary Skin Exam: Warm, Dry (Flor Yoon) Extremeties Extremities Exam: No Edema, Pedal Pulses Palpable (Flor Yoon) Neurologic Neuro Exam: Awake, Moving All Extremities (Flor Yoon) Psychiatric Psych Remarks unable to evaluate (Flor Yoon) Assessment/Plan Discussed Condition With: Patient Assessment Summary: CAROLYN/Acute Renal Failure Electrolyte Assessment: Hypokalemia Problem List: (1) Acute kidney failure ICD Codes: N17.9 - Acute kidney failure, unspecified Plan: He has normal renal function at baseline Non oliguric renal failure CAROLYN due to intravascular volume depletion Renal function has been improving, recheck labs today and monitor for recovery On 1/4 NS with KCL @ 42 cc/hr, continue for now Monitor electrolyes He is not on pressors Monitor urine output, he is non oliguric with a valles catheter His US suggested pelvic mass, consider CT without contrast to evaluate Avoid nephrotoxins Repeat renal panel in AM (2) DM (diabetes mellitus) ICD Codes: E11.9 - Diabetes mellitus Status: Chronic Plan: Maintain glucose 140-180 mg/dL Avoid metformin given renal failure (3) Sepsis ICD Codes: A41.9 - Sepsis, unspecified organism Status: Acute Plan: Urine with Klebsiella He is on cefepime and flagyl Monitor clinically (4) Hypokalemia ICD Codes: E87.6 - Hypokalemia Plan: Replacement has been ordered Repeat labs (5) Hypophosphatemia ICD Codes: E83.39 - Other disorders of phosphorus metabolism Plan: IV replacement has been given Repeat labs and continue to replace After extubation, will need swallow evaluation and promote oral intake if able (Flor Yoon) Plan patient was seen and examined. He has been extubated. Renal function has normalized. Hypernatremia persists, continue 1/4NS. (David Castellanos MD) Problem Qualifiers (1) Acute kidney failure: Qualified Codes: N17.9 - Acute kidney failure, unspecified (2) DM (diabetes mellitus): Flor Yoon Jul 09, 2017 09:58 David Castellanos MD Jul 09, 2017 21:49
[2017-07-09] MEDS: CHLORHEXIDINE 0.12% (ORAL KIT) 15 ML CUP MT SCH ×2 (10:13→20:22)
--- NOTE | 2017-07-09 10:27 | RADRPT ---
EXAM DATE/TIME: 07/09/2017 09:37 [facility] COMPARISON: CHEST SINGLE AP, July 08, 2017, 14:06. INDICATIONS : Pneumothorax. MEDICAL HISTORY : Dementia. Hypercholesterolemia. Chronic obstructive pulmonary disease. uti's, schizophrenic, violent behavior. SURGICAL HISTORY : None. ENCOUNTER: Subsequent ACUITY: 4 - 6 days PAIN SCORE: Non-responsive. LOCATION: Bilateral chest FINDINGS: A single view of the chest demonstrates persistent right apical pneumothorax measuring approximately 2 cm in depth. A surgical thoracostomy tube is unchanged in position with apparent interval removal o f the previously seen cope loop catheter laterally in the right mid to lower chest. Left lung remains clear. Heart size is normal. Stable position of life support tubes including a right IJ central venous damaris ter, endotracheal and nasogastric tube. 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 O sseous structures are otherwise intact. CONCLUSION: 1. Right apical pneumothorax measuring approximately 2 cm in depth is unchanged. 2. Stable position of right-sided surgical thoracostomy tube with interval removal of the previously seen cope loop catheter. 3. Lungs are otherwise clear. Life support tubes are stable in position. 4. 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 Merrill Rosario MD on July 09, 2017 at 10:22 Board Certified Radiologist. This report was verified electronically.
[2017-07-09] MEDS: ENOXAPARIN SODIUM 30 MG/0.3 ML SYRINGE SQ SCH (10:55)
[2017-07-09 11:05] LABS: AUTOMATED NEUTROPHIL # 8.2 TH/MM3 (1.8-7.7); HEMATOCRIT 30.7 % (39.0-51.0); HEMO FLAGS DIFF FINAL; LYMPH % 1.5 % (9.0-44.0); LYMPHOCYTE # 0.1 TH/MM3 (1.0-4.8); MEAN CELL VOLUME 92.6 FL (80.0-100.0); MEAN CORPUSCULAR HEMOGLOBIN 31.5 PG (27.0-34.0); MONO % 4.1 % (0.0-8.0); NEUT % 94.4 % (16.0-70.0); PLATELET COUNT 142 TH/MM3 (150-450); RED BLOOD COUNT 3.32 MIL/MM3 (4.50-5.90); RED CELL DISTRIBUTION WIDTH 13.8 % (11.6-17.2); WHITE BLOOD COUNT 8.7 TH/MM3 (4.0-11.0)
[2017-07-09 11:42] LABS: BICARBONATE 29.9 MEQ/L (21.0-32.0); POTASSIUM 3.6 MEQ/L (3.5-5.1)
[2017-07-09 11:44] LABS: POTASSIUM 3.6 MEQ/L (3.5-5.1)
[2017-07-09] MEDS ORDERED: DEXAMETHASONE SOD PHOS 4 MG/ML VIAL IV ONE (12:00)
[2017-07-09] MEDS ORDERED: SUCCINYLCHOLINE CHLORIDE 100 MG/5 ML SYRINGE IV PUSH ONE (12:00)
[2017-07-09] MEDS ORDERED: PHENYLEPH/NS 1000 MCG/10 ML SYR IV ONE (12:00)
[2017-07-09] MEDS ORDERED: ePHEDrine/NS 25 MG/5 ML SYR IV ONE (12:00)
[2017-07-09] MEDS ORDERED: ONDANSETRON HCL 4 MG/2 ML VIAL IV ONE (12:00)
[2017-07-09] MEDS ORDERED: SODIUM CHLORIDE 0.9% 20 ML VIAL IV ONE (12:00)
[2017-07-09] MEDS ORDERED: PROPOFOL 200 MG/20 ML AMP IV ONE (12:00)
[2017-07-09] MEDS ORDERED: STERILE WATER FOR INJECTION 20 ML VIAL ONE (12:00)
[2017-07-09] MEDS: POTASSIUM CHLORIDE INJ 20 MEQ, SODIUM CHLORIDE 23.4% INJ 38.5 MEQ in WATER STERILE FOR ... IV SCH (12:53)
[2017-07-09] MEDS: ICU - SODIUM PHOSPHATE 30 MMOL/NS 250 ML IV PRN ×2 (13:06)
--- NOTE | 2017-07-09 15:20 | PD.CONS ---
HPI History of Present Illness This is a 66 year old male with paranoid schizophrenia and early dementia, who resides in a local nursing facility, and who is currently in the medical ICU being treated for acute metabolic encephalopathy, acute respiratory failure, COPD exacerbation, right sided pneumothorax, septic shock, atrial fibrillation, acute kidney failure, UTI, and hyperglycemia with history of diabetes. He had a right sided chest tube placed yesterday and was extubated earlier this am around 2am. He was getting tube feeding, but this was turned off around 10am when he was extubated. He received his dose of lovenox today at 1055am. This afternoon, he started having hematemesis consisting of small amount of willian red blood/blood clots. The nurse reports that the first time, he vomited about 100cc of willian red blood, the second time, a large red blood clots, and the third time about 50cc of blood. The patient is lethargic and oriented to self and place, but has poor insight and cannot tell me why he is here. He denies any abdominal pain and is repeatedly asking me for water. He does not seem to have any tenderness on exam and has not had any melena or hematochezia. The nurse reports that he has a healthcare surrogate/POA Ministerio Lou , , but they are not able to reach him by phone for consents. Spoke to Dr. Rodrigues and at this time, it is medically necessary for him to undergo evaluation with EGD to further evaluate the bleeding. He denies prior GI bleeding or peptic ulcers. He has a midline incision and states that he had part of his colon removed. He did not know why, but when asked if it was diverticulitis, he believes this was the reason. (Lizz De Anda) PFSH Past Medical History DM Paranoid Schizophrenia COPD Chronic atrial fibrillation Hyperlipidemia HTN Early dementia Past Surgical History Unable to obtain from patient Old midline abdominal incision scar- pt states from colectomy, maybe diverticulitis. Tracheostomy (Lizz De Anda) Coded Allergies: calamine (Unverified Allergy, Severe, Rash, 07/06/17) olanzapine (Unverified Adverse Reaction, Severe, THROMBOCYTOPENIA, ) Medications Allergies Coded Allergies Type Severity Reaction Last Updated Verified calamine Allergy Severe Rash 07/06/17 No olanzapine Adverse Reaction Severe THROMBOCYTOPENIA 07/06/17 No Active Scripts Medications Dose Route/Sig Max Daily Dose Days Date Category Dose Instructions Haloperidol Inj (Haloperidol Lactate) 5 Mg/Ml Inj 1 Ml IM UP TO BID, PRN 30 06/14/17 Rx Geodon (Ziprasidone) 60 Mg Cap 60 Mg PO BID 06/13/17 Reported Metformin (Metformin HCl) 1,000 Mg Tab 1,000 Mg PO DAILY 06/13/17 Reported With a meal Haloperidol Liq (Haloperidol Lactate) 2 Mg/Ml Conc 12.5 Mg PO BID 06/13/17 Reported Benztropine (Benztropine Mesylate) 0.5 Mg Tab 2 Mg PO DAILY 06/13/17 Reported Aspirin 325 Mg Tab 325 Mg PO DAILY 06/13/17 Reported Family History Unable to obtain Social History Per EMR, smokes 1 ppd Unable to obtain (Lizz De Anda) Review of Systems Constitutional: COMPLAINS OF: Fatigue Respiratory: COMPLAINS OF: Cough, Sputum production, Shortness of breath Gastrointestinal: COMPLAINS OF: Nausea, Vomiting, Hematemesis, DENIES: Abdominal pain, Black stools, Bloody stools, Constipation, Diarrhea Hematologic/lymphatic: COMPLAINS OF: Bruising Psychiatric: COMPLAINS OF: Confusion ROS Poor historian (Lizz De Anda) GI Exam Vitals I&O Vital Signs Date Time Temp Pulse Resp B/P (MAP) Pulse Ox O2 Delivery O2 Flow Rate FiO2 07/09/17 12:00 Arterial Line 07/09/17 12:00 73 07/09/17 12:00 95.7 73 18 127/65 (85) 95 Arterial Line 07/09/17 11:30 99 Nasal Cannula 3.00 07/09/17 10:00 75 07/09/17 09:30 96.3 71 12 120/69 (86) 100 219/219 (219) 07/09/17 09:15 40 07/09/17 09:00 96.3 72 12 125/75 (92) 211/211 (211) 07/09/17 08:30 96.4 73 22 130/75 (93) 219/219 (219) 07/09/17 08:00 67 07/09/17 08:00 40 07/09/17 08:00 96.3 67 21 128/66 (86) 220/220 (220) 07/09/17 07:30 95.9 69 20 121/70 (87) 219/219 (219) 07/09/17 07:00 95.7 74 19 141/68 (92) 191/191 (191) 07/09/17 06:00 69 07/09/17 04:16 100 40 07/09/17 04:00 95.2 67 23 112/61 (78) 100 223/223 (223) 07/09/17 04:00 67 07/09/17 04:00 40 07/09/17 02:00 74 07/09/17 00:54 100 40 07/09/17 00:00 79 07/09/17 00:00 96.1 79 21 117/67 (84) 100 93/58 (70) 07/09/17 00:00 40 07/08/17 22:00 77 07/08/17 20:28 97 40 07/08/17 20:00 40 07/08/17 20:00 81 07/08/17 20:00 98.2 81 21 130/73 (92) 100 106/72 (83) 07/08/17 18:00 67 07/08/17 16:55 100 40 07/08/17 16:00 50 07/08/17 16:00 97.7 68 16 113/60 (77) 100 118/50 (72) 07/08/17 16:00 68 I/O 07/08/17 07/08/17 07/08/17 07/09/17 07/09/17 07/09/17 06:59 14:59 22:59 06:59 14:59 22:59 Intake Total 3645 ml 909 ml 100 ml 1191 ml 435 ml Output Total 450 ml 675 ml 550 ml Balance 3195 ml 909 ml -575 ml 641 ml 435 ml IV Total 3645 ml 909 ml 100 ml 973 ml 435 ml Tube Feeding 218 ml Output Urine Total 450 ml 675 ml 500 ml Chest Tube Drainage Total 50 ml # Bowel Movements 0 0 Imaging Last Impressions Chest X-Ray 07/09/17 0000 Signed Impressions: Service Date/Time: Sunday, July 09, 2017 09:37 - CONCLUSION: 1. Right apical pneumothorax measuring approximately 2 cm in depth is unchanged. 2. Stable position of right-sided surgical thoracostomy tube with interval removal of the previously seen cope loop catheter. 3. Lungs are otherwise clear. Life support tubes are stable in position. 4. 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 Merrill Roasrio MD Head CT 07/06/17 0937 Signed Impressions: Service Date/Time: Thursday, July 06, 2017 12:08 - CONCLUSION: Stable CT scan of the brain compared to 05/01/2017. No new or significant changes. Sam Ruiz MD Renal Ultrasound 07/06/17 0000 Signed Impressions: Service Date/Time: Thursday, July 06, 2017 12:59 - CONCLUSION: 1. Echogenic kidneys bilaterally compatible with medical renal disease. 2. Possible pelvic mass. CT scan is recommended for further evaluation if clinically indicated. Shawn Nick MD Laboratory Test 07/08/17 15:36 07/08/17 19:20 07/09/17 00:15 07/09/17 04:10 Phosphorus Level 3.2 MG/DL Magnesium Level 2.1 MG/DL Potassium Level 3.3 MEQ/L Urine Random Creatinine 67.3 MG/DL Urine Random Sodium 28 MEQ/L Urine Random Potassium 16 MEQ/L Random Vancomycin Level LESS THAN 0.8 COMMENT Test 07/09/17 10:20 White Blood Count 8.7 TH/MM3 Red Blood Count 3.32 MIL/MM3 Hemoglobin 10.5 GM/DL Hematocrit 30.7 % Mean Corpuscular Volume 92.6 FL Mean Corpuscular Hemoglobin 31.5 PG Mean Corpuscular Hemoglobin Concent 34.0 % Red Cell Distribution Width 13.8 % Platelet Count 142 TH/MM3 Mean Platelet Volume 8.2 FL Neutrophils (%) (Auto) 94.4 % Lymphocytes (%) (Auto) 1.5 % Monocytes (%) (Auto) 4.1 % Eosinophils (%) (Auto) 0.0 % Basophils (%) (Auto) 0.0 % Neutrophils # (Auto) 8.2 TH/MM3 Lymphocytes # (Auto) 0.1 TH/MM3 Monocytes # (Auto) 0.4 TH/MM3 Eosinophils # (Auto) 0.0 TH/MM3 Basophils # (Auto) 0.0 TH/MM3 CBC Comment DIFF FINAL Differential Comment Blood Urea Nitrogen 37 MG/DL Creatinine 0.78 MG/DL Random Glucose 227 MG/DL Calcium Level 8.4 MG/DL Sodium Level 151 MEQ/L Potassium Level 3.6 MEQ/L Chloride Level 116 MEQ/L Carbon Dioxide Level 30.0 MEQ/L Albumin 2.5 GM/DL Phosphorus Level 0.9 MG/DL Anion Gap 5 MEQ/L Estimat Glomerular Filtration Rate 100 ML/MIN Date/Time Source Procedure Growth Status 07/06/17 09:45 Blood Peripheral Aerobic Blood Culture - Preliminary NO GROWTH IN 3 DAYS Resulted 07/06/17 09:45 Blood Peripheral Anaerobic Blood Culture - Preliminary NO GROWTH IN 3 DAYS Resulted 07/09/17 01:00 Sputum Endotracheal Gram Stain - Final Resulted 07/09/17 01:00 Sputum Endotracheal Sputum Culture Pending Resulted 07/06/17 09:45 Urine Catheterized Urine Urine Culture - Final Klebsiella Pneumoniae Complete Physical Examination HEENT: Normocephalic; atraumatic; no jaundice CHEST: Resp even/unlabored, right sided diminished. right sided chest tube with sanguinous drainage in tubing CARDIAC: Irregular ABDOMEN: Soft, nondistended, nontender; no hepatosplenomegaly; bowel sounds are present in all four quadrants. Vomited small amount of willian red blood while i was in the room EXTREMITIES: No clubbing, cyanosis, or edema. 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 (Lizz De Anda [facility]) Assessment and Plan Plan ASSESSMENT: - Upper GIB, Hematemesis with willian red blood. On Lovenox, last had 1055am. TF off at 10am. This afternoon, he started having hematemesis consisting of small amount of willian red blood/blood clots. The nurse reports that the first time, he vomited about 100cc of willian red blood, the second time, a large red blood clots , and the third time about 50cc of blood. The nurse reports that he has a healthcare surrogate/ POA Ministerio Lou , , but they are not able to reach him by phone for consents. Spoke to Dr. Rodrigues and at this time, it is medically necessary for him to undergo evaluation with EGD to further evaluate the bleeding. Pt poor historian but denies prior GIB or ulcers. He does have a midline incision and states that he had part of his colon removed. He did not know why, but when asked if it was diverticulitis, he believes this was the reason. Plan for EGD today. Protonix Gtt. Transfuse as needed. Monitor HH. Hold lovenox. - Anemia. 10.5/30.7. Will get stat HH. - Respiratory failure, right ptx, copd exacerbation. Extubated today. CT on right. Solumedrol, nebs, flagyl, cefepime. Per CCM - Sepsis, UTI. Flagyl, cefepime. - CAROLYN. Improved. - Paranoid schizophrenia , early dementia, atrial fibrillation, diabetes. Per attending. PLAN: - Plan for EGD today. - Obtain consents, unable to get in touch with POA. Spoke to Dr. Rodrigues, medically necessary for EGD to evaluate active bleeding with willian red blood - NPO - Hold lovenox - Protonix Gtt - Stat HH - H/H q6h - Transfuse as necessary - CBC, BMP in am - Supportive care - Further recommendations to follow based on results of above - Pt seen and examined by Dr. Roberts and myself and this note is written on his behalf (Lizz De Anda) Physician Comments Patient seen and examined Agree with above Continue with current supportive care Monitor labs Patient will need an EGD and I do agree that this is medically necessary at this point (Eleazar Roberts MD) Lizz De Anda Jul 09, 2017 15:20 Eleazar Roberts MD Jul 09, 2017 17:38
[2017-07-09] MEDS: PANTOPRAZOLE INJ 80 MG in SODIUM CHLORIDE 0.9% INJ 100 ML IV SCH (16:32)
[2017-07-09] MEDS: VASOPRESSIN INJ 40 UNITS in DEXTROSE 5% IN WATER 100ML INJ 98 ML IV SCH ×2 (16:36)
[2017-07-09 17:32] LABS: REVIEW FLAG FINAL
--- NOTE | 2017-07-09 18:21 | PD.PROCEDR ---
GI Procedure REFERRING PHYSICIAN Dr. Rodrigues PROCEDURE PERFORMED EGD with biopsy INDICATION FOR PROCEDURE Hematemesis PROCEDURE: The procedure, risks and benefits were discussed with Mr. Carpio and informed consent was obtained. Anesthesia sedated him with Diprivan patient was intubated. He was placed in the left lateral decubitus position. EGD: The Pentax videoscope was introduced through the oropharynx and advanced to the second portion of the duodenum under direct visualization. Retroflexion was performed in the stomach. FINDINGS: Esophagus there was long segment Rodarte's esophagus extending from 35 cm to 41 cm from the incisors there was a nodularity noted in the Rodarte's esophagus at 35 multiple biopsies were taken from throughout the esophagus which was otherwise unremarkable The stomach this appeared to be unremarkable within normal limits no ulcers no erosions and no active bleeding evidence of heme was noted in the stomach but no blood or bleeding The duodenum this too appeared to be unremarkable and within normal limits Upon completion of the EGD it was noted that there was blood within the endotracheal tube suggesting that maybe the patient had brought up some blood and swallowed it and thereafter vomited it up ESTIMATED BLOOD LOSS: None SPECIMENS REMOVED: Esophageal biopsies COMPLICATIONS: None IMPRESSION: Long segment Rodarte's with nodularity at 35 cm PLAN: Await biopsies Recommend PPI Further recommendations shall depend on the biopsy results Eleazar Roberts MD Jul 09, 2017 18:21
[2017-07-09] MEDS ORDERED: PROPOFOL 1000 MG/100 ML INJ 100 ML ONE (18:30)
[2017-07-09] MEDS: PROPOFOL 1000 MG/100 ML IV PRN ×2 (18:45→23:27)
[2017-07-09] MEDS ORDERED: DO NOT ADM ANY ANTICOAGULANT DRUGS PRN (19:30)
[2017-07-09 22:34] LABS: HEMATOCRIT 27.8 % (39.0-51.0); REVIEW FLAG FINAL
[2017-07-10] VITALS (24 sets, daily range): BP systolic 92–127; BP diastolic 55–70; PULSE 61–78; RESP 14–28; TEMP 97.9–98.9; O2SAT 87–100
[2017-07-10] MEDS: PANTOPRAZOLE INJ 80 MG in SODIUM CHLORIDE 0.9% INJ 100 ML IV SCH ×2 (01:55→12:26)
[2017-07-10] MEDS: RESP: ALBUTEROL 2.5 MG/IPRATROPIUM 0.5 MG NEB (SCH) NEB ×2 (03:32→08:16)
[2017-07-10] MEDS: CEFEPIME INJ 1,000 MG in SODIUM CHLORIDE 0.9% INJ 100 ML IV SCH ×3 (03:41→18:18)
[2017-07-10] MEDS: metroNIDAZOLE 500 MG INJ 100 ML IV SCH ×3 (03:41→18:19)
[2017-07-10] MEDS: CHLORHEXIDINE GLUCONATE 2 % 1 PACK (2 CLOTHS) TOP SCH (03:42)
[2017-07-10 04:29] LABS: HEMATOCRIT 28.4 % (39.0-51.0); MEAN CELL VOLUME 93.4 FL (80.0-100.0); MEAN CORPUSCULAR HEMOGLOBIN 31.5 PG (27.0-34.0); MEAN CORPUSCULAR HGB CONC 33.7 % (32.0-36.0); PLATELET COUNT 137 TH/MM3 (150-450); RED BLOOD COUNT 3.04 MIL/MM3 (4.50-5.90); RED CELL DISTRIBUTION WIDTH 14.2 % (11.6-17.2); REVIEW FLAG FINAL; WHITE BLOOD COUNT 6.8 TH/MM3 (4.0-11.0)
[2017-07-10] MEDS: methylPREDNISolone SOD SUCC 40 MG/1 ML VIAL IV PUSH SCH ×3 (05:04→22:00)
[2017-07-10] MEDS: PROPOFOL 1000 MG/100 ML IV PRN (05:05)
[2017-07-10] MEDS: INSULIN ASPART SUPPLEMENTAL SCALE SQ SCH ×4 (05:11→16:00)
[2017-07-10] MEDS: CHLORHEXIDINE 0.12% (ORAL KIT) 15 ML CUP MT SCH ×2 (08:00→19:53)
[2017-07-10] MEDS: SODIUM CHLORIDE 0.9% FLUSH 10 ML FLUSH IV FLUSH SCH ×2 (09:00→21:00)
[2017-07-10] MEDS: VASOPRESSIN INJ 40 UNITS in DEXTROSE 5% IN WATER 100ML INJ 98 ML IV SCH ×4 (09:16→21:52)
[2017-07-10] MEDS: ASPIRIN 325 MG TAB PO SCH (09:18)
[2017-07-10] MEDS: ZIPRASIDONE HCL 60 MG CAP PO SCH ×2 (09:18→22:01)
[2017-07-10] MEDS: BENZTROPINE MESYLATE 2 MG TAB PO SCH (09:18)
[2017-07-10] MEDS: PANTOPRAZOLE SODIUM 40 MG VIAL IV PUSH SCH (09:19)
--- NOTE | 2017-07-10 12:07 | HHI.GIFU ---
Subjective Remarks Awake. No further hematemesis. Denies n/v, abdominal pain. Tolerating water. Wants to go home. (Lizz De Anda) Objective Vitals I&O Vital Signs Date Time Temp Pulse Resp B/P (MAP) Pulse Ox O2 Delivery O2 Flow Rate FiO2 07/10/17 09:52 95 Nasal Cannula 3 07/10/17 09:16 65 103/66 07/10/17 08:52 99 3.00 07/10/17 08:17 Nasal Cannula 40 07/10/17 08:17 100 40 07/10/17 06:00 71 07/10/17 04:00 50 07/10/17 04:00 97.7 68 16 92/55 (67) 100 07/10/17 04:00 68 07/10/17 03:32 100 40 07/10/17 02:00 67 07/10/17 00:59 100 50 07/10/17 00:00 70 07/10/17 00:00 50 07/10/17 00:00 97.3 70 20 103/63 (76) 100 07/09/17 22:00 69 07/09/17 20:05 100 50 07/09/17 20:00 96.6 67 15 113/58 (76) 100 Manual Cuff/Auscultation 07/09/17 20:00 50 07/09/17 20:00 67 07/09/17 19:35 99 50 07/09/17 19:30 100 100 07/09/17 19:20 70 16 100 Mechanical Ventilator 50 07/09/17 19:15 97.6 67 16 106/60 (75) 100 Mechanical Ventilator 50 07/09/17 19:00 69 16 110/64 (79) 100 Mechanical Ventilator 50 07/09/17 18:47 99 50 07/09/17 18:45 97.6 72 14 125/60 (81) 100 Mechanical Ventilator 50 07/09/17 18:45 50 07/09/17 16:00 77 07/09/17 16:00 96.3 77 26 115/57 (76) 98 07/09/17 15:00 95.9 73 19 111/57 (75) 93 07/09/17 14:00 76 07/09/17 14:00 95.9 76 25 115/62 (79) 92 07/09/17 13:00 95.7 74 37 130/68 (88) 93 07/09/17 12:00 Arterial Line 07/09/17 12:00 73 07/09/17 12:00 95.7 73 18 127/65 (85) 95 Arterial Line I/O 07/09/17 07/09/17 07/09/17 07/10/17 07/10/17 07/10/17 07:00 15:00 23:00 07:00 15:00 23:00 Intake Total 1191 ml 435 ml 370 ml 500 ml Output Total 550 ml 1350 ml 350 ml Balance 641 ml 435 ml -980 ml 150 ml IV Total 973 ml 435 ml 200 ml 500 ml Tube Feeding 218 ml Tube Irrigant 120 ml Other 50 ml Output Urine Total 500 ml 1350 ml 350 ml Chest Tube Drainage Total 50 ml 0 ml Laboratory Laboratory Tests Test 07/09/17 17:10 07/09/17 22:00 07/10/17 03:40 Hemoglobin 10.1 9.5 9.6 Hematocrit 30.0 27.8 28.4 White Blood Count 6.8 Red Blood Count 3.04 Mean Corpuscular Volume 93.4 Mean Corpuscular Hemoglobin 31.5 Mean Corpuscular Hemoglobin Concent 33.7 Red Cell Distribution Width 14.2 Platelet Count 137 Mean Platelet Volume 8.1 Date/Time Source Procedure Growth Status 07/06/17 09:45 Blood Peripheral Aerobic Blood Culture - Preliminary NO GROWTH IN 4 DAYS Resulted 07/06/17 09:45 Blood Peripheral Anaerobic Blood Culture - Preliminary NO GROWTH IN 4 DAYS Resulted 07/09/17 01:00 Sputum Endotracheal Gram Stain - Final Resulted 07/09/17 01:00 Sputum Endotracheal Sputum Culture - Preliminary HEAVY GROWTH NORMAL RESPIRATORY JAY JAY... Resulted 07/06/17 09:45 Urine Catheterized Urine Urine Culture - Final Klebsiella Pneumoniae Complete Imaging Last Impressions Chest X-Ray 07/09/17 0000 Signed Impressions: Service Date/Time: Sunday, July 09, 2017 09:37 - CONCLUSION: 1. Right apical pneumothorax measuring approximately 2 cm in depth is unchanged. 2. Stable position of right-sided surgical thoracostomy tube with interval removal of the previously seen cope loop catheter. 3. Lungs are otherwise clear. Life support tubes are stable in position. 4. 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 Merrill Rosario MD Head CT 10/15/17 0937 Signed Impressions: Service Date/Time: Thursday, July 06, 2017 12:08 - CONCLUSION: Stable CT scan of the brain compared to 05/01/2017. No new or significant changes. Sam Ruiz MD Renal Ultrasound 07/06/17 0000 Signed Impressions: Service Date/Time: Thursday, July 06, 2017 12:59 - CONCLUSION: 1. Echogenic kidneys bilaterally compatible with medical renal disease. 2. Possible pelvic mass. CT scan is recommended for further evaluation if clinically indicated. Shawn Nick MD Physical Exam HEENT: Normocephalic; atraumatic; no jaundice. CHEST: Course breath sounds. CT on right CARDIAC: RRR ABDOMEN: Soft, nondistended, nontender; no hepatosplenomegaly; bowel sounds are present in all four quadrants. EXTREMITIES: No clubbing, cyanosis, or edema. SKIN: Normal; no rash; no jaundice. 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 (Lizz De Anda) Assessment and Plan Plan ASSESSMENT: - Upper GIB, Hematemesis with willian red blood. Had hematemesis consisting of small amount of willian red blood/blood clots on 07/10. S/P EGD (07/10/17)---> Long segment Rodarte's with nodularity at 35 cm. Pathology pending. No further hematemesis. HH stable at 9.6/28.4. PPI - Long segment Rodarte's Esophagus. Pathology pending. PPI - Anemia. HH Stable at 9.6/28.4. - Respiratory failure, right ptx, copd exacerbation. Extubated 07/09. CT on right. Solumedrol, nebs, flagyl, cefepime. Per CCM - Sepsis, UTI. Cx Klebsiella Pneumoniae. Flagyl, cefepime. - CAROLYN. Improved. - Paranoid schizophrenia , early dementia, atrial fibrillation, diabetes. Per attending. PLAN: - Full liquids - Await pathology - D/C Protonix Gtt - Protonix 40mg po BID - Monitor labs - Supportive care - Further recommendations to follow based on results of above - Pt seen and examined by Dr. Roberts and myself and this note is written on his behalf (Lizz De Anda) Physician Comments Patient seen and examined Agree with above Continue with current supportive care Monitor labs We shall follow up on the pathology from the esophagus But not much to add at this point therefore we shall sign off Continue with PPI (Eleazar Roberts MD) Lizz De Anda Jul 10, 2017 12:07 Eleazar Roberts MD Jul 10, 2017 20:31
--- NOTE | 2017-07-10 13:56 | HHI.NPPN ---
Subjective Renal Failure: Acute Interval History After extubation yesterday he started having hematemesis with willian blood and large clots. Was reintubated, then extubated again this morning. Now he is awake. Labs from today are not available but as of yesterday, renal function has improved. (Flor Yoon) Objective Data Data Vital Signs Date Time Temp Pulse Resp B/P (MAP) Pulse Ox O2 Delivery O2 Flow Rate FiO2 07/10/17 13:00 68 07/10/17 13:00 68 20 117/70 (86) 98 07/10/17 12:01 98.2 67 21 127/61 (83) 98 07/10/17 12:01 67 07/10/17 12:00 67 07/10/17 12:00 67 19 98 07/10/17 11:01 70 07/10/17 11:01 97.0 70 18 106/62 (77) 100 07/10/17 11:00 67 07/10/17 11:00 97.0 67 14 100 07/10/17 10:00 63 07/10/17 10:00 96.8 63 22 111/61 (78) 100 07/10/17 09:52 95 Nasal Cannula 3 07/10/17 09:16 65 103/66 07/10/17 09:00 97.2 68 20 103/66 (78) 87 07/10/17 08:52 99 3.00 07/10/17 08:17 Nasal Cannula 40 07/10/17 08:17 100 40 07/10/17 08:00 97.5 73 20 105/62 (76) 100 07/10/17 08:00 50 07/10/17 08:00 97.9 07/10/17 08:00 71 07/10/17 06:00 71 07/10/17 04:00 50 07/10/17 04:00 97.7 68 16 92/55 (67) 100 07/10/17 04:00 68 07/10/17 03:32 100 40 07/10/17 02:00 67 07/10/17 00:59 100 50 07/10/17 00:00 70 07/10/17 00:00 50 07/10/17 00:00 97.3 70 20 103/63 (76) 100 07/09/17 22:00 69 07/09/17 20:05 100 50 07/09/17 20:00 96.6 67 15 113/58 (76) 100 Manual Cuff/Auscultation 07/09/17 20:00 50 07/09/17 20:00 67 07/09/17 19:35 99 50 07/09/17 19:30 100 100 07/09/17 19:20 70 16 100 Mechanical Ventilator 50 07/09/17 19:15 97.6 67 16 106/60 (75) 100 Mechanical Ventilator 50 07/09/17 19:00 69 16 110/64 (79) 100 Mechanical Ventilator 50 07/09/17 18:47 99 50 07/09/17 18:45 97.6 72 14 125/60 (81) 100 Mechanical Ventilator 50 07/09/17 18:45 50 07/09/17 16:00 77 07/09/17 16:00 96.3 77 26 115/57 (76) 98 07/09/17 15:00 95.9 73 19 111/57 (75) 93 07/09/17 14:00 76 07/09/17 14:00 95.9 76 25 115/62 (79) 92 (Flor Yoon) -: 07/10/17 0340 07/09/17 1020 Imaging Last 72 hours Impressions Chest X-Ray 07/09/17 0000 Signed Impressions: Service Date/Time: Sunday, July 09, 2017 09:37 - CONCLUSION: 1. Right apical pneumothorax measuring approximately 2 cm in depth is unchanged. 2. Stable position of right-sided surgical thoracostomy tube with interval removal of the previously seen cope loop catheter. 3. Lungs are otherwise clear. Life support tubes are stable in position. 4. 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 Merrill Rosario MD Chest X-Ray 07/08/17 1000 Signed Impressions: Service Date/Time: Saturday, July 08, 2017 10:24 - CONCLUSION: 1. Stable right-sided pneumothorax with stable position of the [place] loop thoracostomy tube as above. 2. Stable position of life support tubes. 3. 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 Merrill Rosario MD Chest X-Ray 07/08/17 0600 Signed Impressions: Service Date/Time: Saturday, July 08, 2017 04:05 - CONCLUSION: Right chest tube with right pneumothorax without tension Shawn Nick MD Chest X-Ray 07/08/17 0000 Signed Impressions: Service Date/Time: Saturday, July 08, 2017 14:06 - CONCLUSION: 1. 2 right-sided chest tubes in place. 2. Persistent right apical pneumothorax with 2.5 cm of separation. Sam Ruiz MD Tubes & Lines: Valles Tubes & Lines Comment chest tube, R IJ TLC (Flor Yoon [employer]) Physical Exam General Appearance: No Acute Distress, Comfortable, Malnourished (Flor Yoon [employer]) Eyes Eye Exam: Pupils Equal (Flor Yoon [employer]) Throat Throat Exam: Oral Mucosa [place] & Moist (Flor Yoon [employer]) Pulmonary Resp Exam: Clear Bilaterally, Breath Sounds Equal, No Distress, Decreased Bases Resp Remarks chest tube on right (Flor Yoon [employer]) Cardiology CV Exam: Regular, Normal Sinus Rhythm (Flor Yoon [employer]) Gastrointestinal/Abdomen GI Exam: Soft, Non-Tender, Bowel Sounds Present (Flor Yoon [employer]) Musculoskeletal MS Exam: Joints Intact, Normal Tone, Unable to Ambulate (Flor Yoon [employer]) Integumentary Skin Exam: Warm, Dry (Flor Yoon [employer]) Extremeties Extremities Exam: No Edema, Pedal Pulses Palpable (Flor Yoon [employer]) Neurologic Neuro Exam: Alert, Awake, Oriented, Speech Clear, Moving All Extremities (Flor Yoon [employer]) Psychiatric Psych Exam: Appropriate Responses (Flor Yoon [employer]) Assessment/Plan Discussed Condition With: Patient Assessment Summary: CAROLYN/Acute Renal Failure Electrolyte Assessment: Hypokalemia Problem List: (1) Acute kidney failure ICD Codes: N17.9 - Acute kidney failure, unspecified Plan: He has normal renal function at baseline Non oliguric renal failure , due to intravascular volume depletion Renal function has improved with IVF On 09/25 NS with KCL @ 42 cc/hr, continue for now He is not on pressors Monitor urine output, valles has been removed. His US suggested pelvic mass, consider CT without contrast to evaluate , can be done outpatient Avoid nephrotoxins Repeat renal panel in AM (2) DM (diabetes mellitus) ICD Codes: E11.9 - Diabetes mellitus Status: Chronic Plan: Maintain glucose 140-180 mg/dL Avoid metformin given renal failure (3) Sepsis ICD Codes: A41.9 - Sepsis, unspecified organism Status: Acute Plan: Urine with Klebsiella He is on cefepime and flagyl Monitor clinically (4) Hypokalemia ICD Codes: E87.6 - Hypokalemia Plan: Corrected, monitor for recurrence (5) Hypophosphatemia ICD Codes: E83.39 - Other disorders of phosphorus metabolism Plan: IV replacement is ordered (6) Hypernatremia ICD Codes: E87.0 - Hyperosmolality and hypernatremia Plan: RN to give free water, encourage PO intake Continue 1/4 NS for the time being (7) GI bleed ICD Codes: K92.2 - Gastrointestinal hemorrhage, unspecified Plan: GI is following Protonix gtt to be converted to intermittent dosage s/p EGD, Rodarte's esophagus noted; blood thought to be swallowed/vomited but came from ETT in lungs (Flor Yoon) Plan patient was seen and examined. He has been reintubated. Renal function has improved. Hypernatremia has been reintubated. (David Castellanos MD) Problem Qualifiers (1) Acute kidney failure: Qualified Codes: N17.9 - Acute kidney failure, unspecified (2) DM (diabetes mellitus): Flor Yoon Jul 10, 2017 13:56 David Castellanos MD Jul 10, 2017 20:40
--- NOTE | 2017-07-10 13:58 | HHI.CCPN ---
Subjective Remarks/Hospital Course All history is obtained from discussion with the ED physician and chart review as the patient is intubated and altered. Patient is a 66-year-old male sn[facility] resident with past medical history with schizophrenia dementia with behavioral disturbances, COPD, type 2 diabetes, hypertension, dyslipidemia, chronic atrial fibrillation. He apparently developed altered mentation, decreased level of consciousness while at the breakfast table in his NH. He passed out while eating breakfast, had been having syncopal episodes recently. Initial blood pressure systolic was in the 50s and patient was aggressively resuscitated in the ED with a total of 3 L normal saline. Broad-spectrum antibiotics given with Zosyn. The patient appears to be septic with urinary source. He's been started on Levophed to keep map above 65. Abnormal labs include Lactic acid is 4.7, sodium of 148, bicarbonate 12.4, BUN 125/creatinine 6.39, blood glucose was 639. WBC count was 16,000. There is evidence of aspiration as per the intubation note from Dr. Cai I evaluated the patient in the ED. He is intubated sedated but withdrawals to pain on all 4 extremities. His remains hypotensive tachycardic with A. fib with RVR. Levophed is at 2 mcg/m. Additional 1 L fluid boluses ordered, patient will need central line placement and further resuscitation. Antibiotics were modified to vancomycin cefepime and Flagyl. Due to recent history of diarrhea, C. difficile had been ordered 07/07: Remains intubated sedated. Versed just held. On Cardizem infusion for A. fib with RVR. Remains on Levophed at 19 mcg/m. UO excellent 2.8L in 24 hours. Creat improving 2.7 today. 07/08: Remains intubated sedated Versed was restarted yesterday. There is expansion of right pneumothorax, chest tube patency checked. Will repeat chest x-ray. Creatinine now improved to 1.3 but encephalopathy persists. UO 1.3L. sodium is improved to 149, from 151 LATE NOTE ENTRY FOR 07/09/17: Patient was weaned and extubated but developed hematemesis. GI consulted for EGD today. Hemodynamically stable off pressors Objective Vital Signs Date Time Temp Pulse Resp B/P (MAP) Pulse Ox O2 Delivery O2 Flow Rate FiO2 07/10/17 13:00 68 07/10/17 13:00 20 117/70 (86) 98 07/10/17 12:01 98.2 07/10/17 09:52 Nasal Cannula 3 07/10/17 08:17 40 Intake and Output 07/10/17 07/10/17 07/11/17 08:00 16:00 00:00 Intake Total 400 ml Output Total 350 ml Balance 50 ml Result Diagram: 07/10/17 0340 07/09/17 1020 Imaging CXR no acute findings CT head negative for acute findings Objective Remarks GENERAL: Cachectic poorly kempt elderly male who is extubated SKIN: Pale and cool, dry HEAD: Atraumatic. Normocephalic. EYES: Pupils equal and round, sluggishly reactive. ENT: Mucous membranes dry. Edentulous. NECK: Trachea midline. No JVD. Well-healed previous trach incision CARDIOVASCULAR: Atrial fibrillation rate controlled. No obvious murmur appreciated. RESPIRATORY: Coarse breath sounds bilaterally, and entry is diminished on the right side. Scattered wheezes. Well-healed left thoracotomy scar. Right chest tube GASTROINTESTINAL: Abdomen soft, non-distended. Well-healed vertical abdominal scar MUSCULOSKELETAL: No obvious deformities. Erythema over bilateral knee NEUROLOGICAL: Follows commands, No focal deficits A/P Assessment and Plan NEURO: Acute metabolic encephalopathy - Mental status change most likely secondary to metabolic encephalopathy from sepsis, and hypoperfusion from severe dehydration - Encephalopathy improving - CT of the head negative for acute findings - Continue Geodon and benztropine RESP: Acute respiratory failure COPD with exacerbation Right-sided pneumothorax - Tolerated SBT and extubated today 07/09 - DuoNeb every 6 hours and when necessary - IV Solu-Medrol 40 q8 - Pig tail catheter got dislodged, F/U CXR - See ID section for broad-spectrum antibiotic - F/U Sputum culture CV: Septic shock A. fib with RVR - s/p Normal saline IV fluids 4L bolus. Currently on quarter-normal saline infusion - Off Levophed to keep map above 65 - Cardizem for rate control - 2d echo EF 55-60%. Continue aspirin - If A. fib is persistent >24 hours start on IV heparin but not a candidate for long-term anticoagulation GI: - IV Protonix. Tube feeds with Jevity : Acute kidney failure - Acute kidney failure is most likely from severe dehydration, creat improving - Continue fluid resuscitation as above. Monitor renal function closely. Avery catheter. - Nephrology following ID: Septic shock UTI - On IV vanc, cefepime and Flagyl. Urine cx Klebsiella. DCd vanc - Urine and sputum culture, Neg for C. difficile HEME: - Monitor CBC, CMP, coags ENDO: Hyperglycemia, type 2 diabetes - Sliding-scale with NovoLog PROPH: Bilateral lower extremity SCDs. Lovenox for DVT prophylaxis. IV Protonix LINES: - Utilize peripheral IVs, central line if needed Level 3 Winnie Rodrigues MD Jul 10, 2017 13:58
--- NOTE | 2017-07-10 14:07 | HHI.CCPN ---
Subjective Remarks/Hospital Course All history is obtained from discussion with the ED physician and chart review as the patient is intubated and altered. Patient is a 66-year-old male retirement resident with past medical history with schizophrenia dementia with behavioral disturbances, COPD, type 2 diabetes, hypertension, dyslipidemia, chronic atrial fibrillation. He apparently developed altered mentation, decreased level of consciousness while at the breakfast table in his NH. He passed out while eating breakfast, had been having syncopal episodes recently. Initial blood pressure systolic was in the 50s and patient was aggressively resuscitated in the ED with a total of 3 L normal saline. Broad-spectrum antibiotics given with Zosyn. The patient appears to be septic with urinary source. He's been started on Levophed to keep map above 65. Abnormal labs include Lactic acid is 4.7, sodium of 148, bicarbonate 12.4, BUN 125/creatinine 6.39, blood glucose was 639. WBC count was 16,000. There is evidence of aspiration as per the intubation note from Dr. Cai I evaluated the patient in the ED. He is intubated sedated but withdrawals to pain on all 4 extremities. His remains hypotensive tachycardic with A. fib with RVR. Levophed is at 2 mcg/m. Additional 1 L fluid boluses ordered, patient will need central line placement and further resuscitation. Antibiotics were modified to vancomycin cefepime and Flagyl. Due to recent history of diarrhea, C. difficile had been ordered 07/07: Remains intubated sedated. Versed just held. On Cardizem infusion for A. fib with RVR. Remains on Levophed at 19 mcg/m. UO excellent 2.8L in 24 hours. Creat improving 2.7 today. 07/08: Remains intubated sedated Versed was restarted yesterday. There is expansion of right pneumothorax, chest tube patency checked. Will repeat chest x-ray. Creatinine now improved to 1.3 but encephalopathy persists. UO 1.3L. sodium is improved to 149, from 151 LATE NOTE ENTRY FOR 07/09/17: Patient was weaned and extubated but developed hematemesis. GI consulted for EGD today. Hemodynamically stable off pressors 07/10/17: Patient developed hematemesis yesterday and had EGD by Dr. Roberts. Showed Long segment Rodarte's. Overnight was left intubated, SBT and extubation today. Objective Vital Signs Date Time Temp Pulse Resp B/P (MAP) Pulse Ox O2 Delivery O2 Flow Rate FiO2 07/10/17 13:00 68 07/10/17 13:00 20 117/70 (86) 98 07/10/17 12:01 98.2 07/10/17 09:52 Nasal Cannula 3 07/10/17 08:17 40 Intake and Output 07/10/17 07/10/17 07/11/17 08:00 16:00 00:00 Intake Total 400 ml Output Total 350 ml Balance 50 ml Result Diagram: 07/10/17 0340 07/09/17 1020 Imaging CXR no acute findings CT head negative for acute findings Objective Remarks GENERAL: Cachectic poorly kempt elderly male who is intubated sedated but wakes up easily SKIN: Pale and cool, dry HEAD: Atraumatic. Normocephalic. EYES: Pupils equal and round, sluggishly reactive. ENT: Mucous membranes dry. Edentulous. NECK: Trachea midline. No JVD. Well-healed previous trach incision CARDIOVASCULAR: Atrial fibrillation rate controlled. No obvious murmur appreciated. RESPIRATORY: Coarse breath sounds bilaterally, and entry is diminished on the right side. Scattered wheezes. Well-healed left thoracotomy scar. Right chest tube in place GASTROINTESTINAL: Abdomen soft, non-distended. Well-healed vertical abdominal scar MUSCULOSKELETAL: No obvious deformities. Erythema over bilateral knee NEUROLOGICAL: Intubated sedated Follows commands, No focal deficits A/P Assessment and Plan NEURO: Acute metabolic encephalopathy - Mental status change most likely secondary to metabolic encephalopathy from sepsis, and hypoperfusion from severe dehydration - Encephalopathy improvied - CT of the head negative for acute findings - Continue Geodon and benztropine RESP: Acute respiratory failure COPD with exacerbation Right-sided pneumothorax - Tolerated SBT and extubated 07/09, reintubated in the OR for EGD. SBT today with possible extubation - DuoNeb every 6 hours and when necessary - IV Solu-Medrol 40 q8 - CXR repeat today to follow up pneumothorax - See ID section for broad-spectrum antibiotic - F/U Sputum culture CV: Septic shock A. fib with RVR - s/p Normal saline IV fluids 4L bolus on admission. Continue quarter-normal saline infusion - Remains off pressors - Cardizem for rate control - 2d echo EF 55-60%. Continue aspirin - If A. fib is persistent >24 hours start on IV heparin but not a candidate for long-term anticoagulation GI: - Diet when cleared by GI. IV Protonix : Acute kidney failure - Acute kidney failure is most likely from severe dehydration, creat improving - Continue fluid resuscitation as above. Monitor renal function closely. Avery catheter. - Nephrology following ID: Septic shock UTI - On IV vanc, cefepime and Flagyl. Urine cx Klebsiella. DCd vanc. DC Cefepime and Flagyl. Start Rocephin HEME: - Monitor CBC, CMP, coags ENDO: Hyperglycemia, type 2 diabetes - Sliding-scale with NovoLog PROPH: Bilateral lower extremity SCDs. Holding Lovenox due to hematemesis. IV Protonix LINES: - Utilize peripheral IVs, central line if needed Level 3 Winnie Rodrigues MD Jul 10, 2017 14:07
--- NOTE | 2017-07-10 14:59 | RADRPT ---
EXAM DATE/TIME: 07/10/2017 14:25 [facility] COMPARISON: CHEST SINGLE AP, July 09, 2017, 9:37. INDICATIONS : Evaluate pneumothorax. MEDICAL HISTORY : Hypertension. Cardiovascular disease. [place] SURGICAL HISTORY : None. ENCOUNTER: Subsequent ACUITY: 4 - 6 days PAIN SCORE: 0/10 LOCATION: Bilateral chest FINDINGS: The right chest remains in place. There continues to be a right-sided pneumothorax with 1.8 cm of sep aration at the apex. There is been no significant changes compared to the prior study. The previously noted endotracheal tube and NG tube have been removed. The left lung is grossly clear. No pleural ef fusions. The bony structures are stable. CONCLUSION: 1. Right chest tube remains in place. 2. No significant change in the right-sided pneumothorax with 1.8 cm of separation at the apex. Sam Ruiz MD on July 10, 2017 at 14:56 Board Certified Radiologist. This report was verified electronically.
[2017-07-10 17:18] LABS: ALT (GPT) 24 U/L (12-78); ANION GAP 6 MEQ/L (5-15); AST (GOT) 14 U/L (15-37); BLOOD UREA NITROGEN 32 MG/DL (7-18); CHLORIDE 111 MEQ/L (98-107); GLOMERULAR FILTRATION RATE 137 ML/MIN (>89); POTASSIUM 4.3 MEQ/L (3.5-5.1); SODIUM (NA) 144 MEQ/L (136-145)
[2017-07-10 17:19] LABS: ALKALINE PHOSPHATASE 62 U/L (45-117); TOTAL BILIRUBIN ADULT 0.3 MG/DL (0.2-1.0)
[2017-07-10] MEDS: PANTOPRAZOLE SOD 40 MG DELAYED RELEASE TAB PO SCH (22:01)
[2017-07-10] MEDS: POTASSIUM CHLORIDE INJ 20 MEQ, SODIUM CHLORIDE 23.4% INJ 38.5 MEQ in WATER STERILE FOR ... IV SCH (22:03)
[2017-07-11] VITALS (29 sets, daily range): BP systolic 101–130; BP diastolic 57–70; PULSE 47–85; RESP 12–38; TEMP 97.9; O2SAT 90–98
[2017-07-11] MEDS: CHLORHEXIDINE GLUCONATE 2 % 1 PACK (2 CLOTHS) TOP SCH (03:30)
[2017-07-11] MEDS: CEFEPIME INJ 1,000 MG in SODIUM CHLORIDE 0.9% INJ 100 ML IV SCH ×3 (03:44→20:02)
[2017-07-11] MEDS: metroNIDAZOLE 500 MG INJ 100 ML IV SCH ×3 (03:44→20:02)
[2017-07-11] MEDS: INSULIN ASPART SUPPLEMENTAL SCALE SQ SCH ×6 (04:00→21:16)
[2017-07-11] MEDS: methylPREDNISolone SOD SUCC 40 MG/1 ML VIAL IV PUSH SCH ×3 (05:53→21:16)
[2017-07-11 06:07] LABS: AUTOMATED NEUTROPHIL # 5.9 TH/MM3 (1.8-7.7); BASOPHIL % 0.1 % (0.0-2.0); HEMATOCRIT 29.7 % (39.0-51.0); HEMO FLAGS DIFF FINAL; LYMPH % 4.1 % (9.0-44.0); LYMPHOCYTE # 0.3 TH/MM3 (1.0-4.8); MEAN CELL VOLUME 93.6 FL (80.0-100.0); MEAN CORPUSCULAR HEMOGLOBIN 31.7 PG (27.0-34.0); MEAN CORPUSCULAR HGB CONC 33.9 % (32.0-36.0); MONO % 5.4 % (0.0-8.0); NEUT % 90.4 % (16.0-70.0); PLATELET COUNT 139 TH/MM3 (150-450); RED BLOOD COUNT 3.18 MIL/MM3 (4.50-5.90); RED CELL DISTRIBUTION WIDTH 13.8 % (11.6-17.2); WHITE BLOOD COUNT 6.6 TH/MM3 (4.0-11.0)
--- NOTE | 2017-07-11 06:15 | RADRPT ---
EXAM DATE/TIME: 07/11/2017 04:03 [facility] COMPARISON: CHEST SINGLE AP, July 10, 2017, 14:25. INDICATIONS : Respiratory failure, Evaluate pnuemothorax MEDICAL HISTORY : Hypertension. Cardiovascular disease. Dementia SURGICAL HISTORY : None. ENCOUNTER: Subsequent ACUITY: 1 week PAIN SCORE: Non-responsive. LOCATION: Bilateral chest FINDINGS: A single view of the chest demonstrates right-sided chest tube with decreasing pneumothorax now measu ring 1.5 cm. Subcutaneous emphysema on the right. Bibasilar densities greater left lower lobe. Chroni c old right humeral head fracture. Right jugular central line in stable position. Osseous structures are intact. CONCLUSION: 1. Right-sided chest tube with decreasing right pneumothorax. 2. Worsening bibasilar densities. Jacek Mcintyre MD on July 11, 2017 at 6:12 Board Certified Radiologist. This report was verified electronically.
[2017-07-11 06:38] LABS: ANION GAP 5 MEQ/L (5-15); AST (GOT) 20 U/L (15-37); BICARBONATE 28.9 MEQ/L (21.0-32.0); BLOOD UREA NITROGEN 22 MG/DL (7-18); CHLORIDE 111 MEQ/L (98-107); GLOMERULAR FILTRATION RATE 183 ML/MIN (>89); MAGNESIUM 1.7 MG/DL (1.5-2.5); POTASSIUM 4.3 MEQ/L (3.5-5.1); SODIUM (NA) 145 MEQ/L (136-145)
[2017-07-11 06:39] LABS: ALT (GPT) 28 U/L (12-78)
[2017-07-11 06:41] LABS: ALKALINE PHOSPHATASE 64 U/L (45-117); TOTAL BILIRUBIN ADULT 0.4 MG/DL (0.2-1.0)
[2017-07-11] MEDS: CHLORHEXIDINE 0.12% (ORAL KIT) 15 ML CUP MT SCH ×2 (08:00→20:00)
[2017-07-11] MEDS: BENZTROPINE MESYLATE 2 MG TAB PO SCH (08:27)
[2017-07-11] MEDS: PANTOPRAZOLE SOD 40 MG DELAYED RELEASE TAB PO SCH ×2 (08:27→20:02)
[2017-07-11] MEDS: ZIPRASIDONE HCL 60 MG CAP PO SCH ×2 (08:27→20:02)
[2017-07-11] MEDS: ASPIRIN 325 MG TAB PO SCH (08:27)
[2017-07-11] MEDS: SODIUM CHLORIDE 0.9% FLUSH 10 ML FLUSH IV FLUSH SCH ×2 (08:28→21:00)
--- NOTE | 2017-07-11 09:34 | HHI.CCPN ---
Subjective Remarks/Hospital Course All history is obtained from discussion with the ED physician and chart review as the patient is intubated and altered. Patient is a 66-year-old male residential resident with past medical history with schizophrenia dementia with behavioral disturbances, COPD, type 2 diabetes, hypertension, dyslipidemia, chronic atrial fibrillation. He apparently developed altered mentation, decreased level of consciousness while at the breakfast table in his NH. He passed out while eating breakfast, had been having syncopal episodes recently. Initial blood pressure systolic was in the 50s and patient was aggressively resuscitated in the ED with a total of 3 L normal saline. Broad-spectrum antibiotics given with Zosyn. The patient appears to be septic with urinary source. He's been started on Levophed to keep map above 65. Abnormal labs include Lactic acid is 4.7, sodium of 148, bicarbonate 12.4, BUN 125/creatinine 6.39, blood glucose was 639. WBC count was 16,000. There is evidence of aspiration as per the intubation note from Dr. Cai I evaluated the patient in the ED. He is intubated sedated but withdrawals to pain on all 4 extremities. His remains hypotensive tachycardic with A. fib with RVR. Levophed is at 2 mcg/m. Additional 1 L fluid boluses ordered, patient will need central line placement and further resuscitation. Antibiotics were modified to vancomycin cefepime and Flagyl. Due to recent history of diarrhea, C. difficile had been ordered 07/07: Remains intubated sedated. Versed just held. On Cardizem infusion for A. fib with RVR. Remains on Levophed at 19 mcg/m. UO excellent 2.8L in 24 hours. Creat improving 2.7 today. 07/08: Remains intubated sedated Versed was restarted yesterday. There is expansion of right pneumothorax, chest tube patency checked. Will repeat chest x-ray. Creatinine now improved to 1.3 but encephalopathy persists. UO 1.3L. sodium is improved to 149, from 151 LATE NOTE ENTRY FOR 07/09/17: Patient was weaned and extubated but developed hematemesis. GI consulted for EGD today. Hemodynamically stable off pressors 07/10/17: Patient developed hematemesis yesterday and had EGD by Dr. Roberts. Showed Long segment Rodarte's. Overnight was left intubated, SBT and extubation today. 07/11/17: Overall doing better patient appears comfortable breathing comfortably. Chest x-ray shows decreasing pneumothorax. RN reports mild hemoptysis. Will consult pulmonology for COPD with hemoptysis Objective Vital Signs Date Time Temp Pulse Resp B/P (MAP) Pulse Ox O2 Delivery O2 Flow Rate FiO2 07/11/17 06:00 47 07/11/17 06:00 12 95 07/11/17 05:01 128/58 (81) 07/10/17 20:00 98.7 07/10/17 09:52 Nasal Cannula 3 07/10/17 08:17 40 Intake and Output 07/11/17 07/11/17 07/12/17 08:00 16:00 00:00 Intake Total 920 ml Output Total 2030 ml Balance -1110 ml Result Diagram: 07/11/17 0540 07/11/17 0540 Imaging CXR no acute findings CT head negative for acute findings Objective Remarks GENERAL: Cachectic poorly kempt elderly male who is on NC SKIN: Pale and cool, dry HEAD: Atraumatic. Normocephalic. EYES: Pupils equal and round, sluggishly reactive. ENT: Mucous membranes dry. Edentulous. NECK: Trachea midline. No JVD. Well-healed previous trach incision CARDIOVASCULAR: Atrial fibrillation rate controlled. No obvious murmur appreciated. RESPIRATORY: Coarse breath sounds bilaterally, and entry is diminished on the right side. Scattered wheezes. Well-healed left thoracotomy scar. Right chest tube in place. Positive subcut emphysema GASTROINTESTINAL: Abdomen soft, non-distended. Well-healed vertical abdominal scar MUSCULOSKELETAL: No obvious deformities. Erythema over bilateral knee NEUROLOGICAL: Alert awake, follows commands. No focal deficits A/P Assessment and Plan NEURO: Acute metabolic encephalopathy - Mental status change most likely secondary to metabolic encephalopathy from sepsis, and hypoperfusion from severe dehydration - Encephalopathy resolved - CT of the head negative for acute findings - Continue Geodon and benztropine RESP: Acute respiratory failure -resolved COPD with exacerbation Right-sided pneumothorax Hemoptysis - Tolerated SBT and extubated 07/09, reintubated in the OR for EGD. Extubated again 07/10/17 - DuoNeb every 6 hours and when necessary. IV Solu-Medrol 40 q8-reduce to 40 q12 - Add symbicort, spiriva - Consult pulmonology Dr. Hargrove for hemoptysis - CXR repeat today to follow up pneumothorax - See ID section for broad-spectrum antibiotic - F/U Sputum culture-MSSA CV: Septic shock A. fib with RVR - s/p Normal saline IV fluids 4L bolus on admission. Continue quarter-normal saline infusion - Remains off pressors - 2d echo EF 55-60%. Continue aspirin - Not a candidate for long-term anticoagulation GI: Long segment Rodarte's Esophagus Hematemesis - Diet per GI. IV Protonix : Acute kidney failure - Acute kidney failure is most likely from severe dehydration, creat improving - Continue fluid resuscitation as above. Monitor renal function closely. Avery catheter. - Nephrology following ID: Septic shock UTI MSSA pneumonia - On IV vanc, cefepime and Flagyl. Urine cx Klebsiella. DCd vanc. DC Cefepime and Flagyl. Started on Rocephin HEME: - Monitor CBC, CMP, coags ENDO: Hyperglycemia, type 2 diabetes - Sliding-scale with NovoLog PROPH: Bilateral lower extremity SCDs. Holding Lovenox due to hemoptysis. IV Protonix LINES: - Utilize peripheral IVs, central line if needed Level 3 D/W Dr. Gaona. Consulted pulmonology to address new problem of hemoptysis. Winnie Rodrigues MD Jul 11, 2017 09:34
--- NOTE | 2017-07-11 10:20 | HHI.NPPN ---
Subjective Renal Failure: Acute Interval History He is awake. Wanting to be discharged back to the skilled nursing. Hypernatremia has improved. (Flor Yoon) Objective Data Data Vital Signs Date Time Temp Pulse Resp B/P (MAP) Pulse Ox O2 Delivery O2 Flow Rate FiO2 07/11/17 06:00 47 07/11/17 06:00 47 12 95 07/11/17 05:01 58 07/11/17 05:01 58 19 128/58 (81) 94 07/11/17 05:00 54 17 95 07/11/17 05:00 54 07/11/17 04:01 61 07/11/17 04:01 61 19 130/67 (88) 97 07/11/17 04:00 62 21 98 07/11/17 04:00 62 07/11/17 03:01 61 07/11/17 03:01 61 21 116/63 (80) 96 07/11/17 03:00 59 07/11/17 03:00 59 17 96 07/11/17 02:00 72 25 126/70 (88) 97 07/11/17 02:00 72 07/11/17 01:01 57 15 129/62 (84) 94 07/11/17 01:01 57 07/11/17 01:00 55 07/11/17 01:00 55 21 94 07/11/17 00:01 59 17 120/63 (82) 94 07/11/17 00:01 59 07/11/17 00:00 55 16 94 07/11/17 00:00 55 07/10/17 22:00 61 07/10/17 20:00 65 07/10/17 20:00 98.7 65 16 111/56 (74) 93 07/10/17 18:00 64 14 94 07/10/17 18:00 64 07/10/17 17:00 69 22 95 07/10/17 17:00 69 07/10/17 16:00 78 28 113/63 (80) 99 07/10/17 16:00 98.9 07/10/17 16:00 78 07/10/17 15:00 66 07/10/17 14:00 67 07/10/17 13:00 68 07/10/17 13:00 68 20 117/70 (86) 98 07/10/17 12:01 98.2 67 21 127/61 (83) 98 07/10/17 12:01 67 07/10/17 12:00 67 07/10/17 12:00 67 19 98 07/10/17 11:01 70 07/10/17 11:01 97.0 70 18 106/62 (77) 100 07/10/17 11:00 67 07/10/17 11:00 97.0 67 14 100 (Flor Yoon) -: 07/11/17 0540 07/11/17 0540 Imaging Last 72 hours Impressions Chest X-Ray 07/11/17 0600 Signed Impressions: Service Date/Time: Tuesday, July 11, 2017 04:03 - CONCLUSION: 1. Right- sided chest tube with decreasing right pneumothorax. 2. Worsening bibasilar densities. Jacek Mcintyre MD Chest X-Ray 07/10/17 0000 Signed Impressions: Service Date/Time: June 14:25 - CONCLUSION: 1. Right chest tube remains in place. 2. No significant change in the right-sided pneumothorax with 1.8 cm of separation at the apex. Sam Ruiz MD Chest X-Ray 07/09/17 0000 Signed Impressions: Service Date/Time: Sunday, July 09, 2017 09:37 - CONCLUSION: 1. Right apical pneumothorax measuring approximately 2 cm in depth is unchanged. 2. Stable position of right-sided surgical thoracostomy tube with interval removal of the previously seen cope loop catheter. 3. Lungs are otherwise clear. Life support tubes are stable in position. 4. 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 Merrill Rosario MD Tubes & Lines: Valles Tubes & Lines Comment chest tube, R IJ TLC (Flor Yoon) Physical Exam General Appearance: No Acute Distress, Comfortable, Malnourished (Flor Yoon) Eyes Eye Exam: Pupils Equal (Flor Yoon) Throat Throat Exam: Oral Mucosa [place] & Moist (Flor Yoon) Pulmonary Resp Exam: Clear Bilaterally, Breath Sounds Equal, No Distress, Decreased Bases Resp Remarks chest tube on right (Flor Yoon) Cardiology CV Exam: Regular, Normal Sinus Rhythm (Flor Yoon) Gastrointestinal/Abdomen GI Exam: Soft, Non-Tender, Bowel Sounds Present (Flor Yoon) Musculoskeletal MS Exam: Joints Intact, Normal Tone, Good Strength, Unable to Ambulate (Flor Yoon) Integumentary Skin Exam: Clear, Warm, Dry (Flor Yoon) Extremeties Extremities Exam: No Edema, Pedal Pulses Palpable (Flor Yoon) Neurologic Neuro Exam: Alert, Awake, Oriented, Speech Clear, Moving All Extremities (Flor Yoon) Psychiatric Psych Exam: Appropriate Responses (Flor Yoon) Assessment/Plan Discussed Condition With: Patient Assessment Summary: CAROLYN/Acute Renal Failure Electrolyte Assessment: Hypokalemia Problem List: (1) Acute kidney failure ICD Codes: N17.9 - Acute kidney failure, unspecified Plan: He has normal renal function at baseline Non oliguric renal failure, due to intravascular volume depletion. that Improved with IVF He has Adequate urine output, valles has been removed. Stop IVF, tolerating PO Avoid nephrotoxins His US suggested pelvic mass, consider CT without contrast to evaluate , can be done outpatient (2) DM (diabetes mellitus) ICD Codes: E11.9 - Diabetes mellitus Status: Chronic Plan: Maintain glucose 140-180 mg/dL Avoid metformin given renal failure (3) Sepsis ICD Codes: A41.9 - Sepsis, unspecified organism Status: Acute Plan: Urine with Klebsiella He is on cefepime and flagyl Monitor clinically (4) Hypokalemia ICD Codes: E87.6 - Hypokalemia Plan: Corrected, monitor for recurrence (5) Hypophosphatemia ICD Codes: E83.39 - Other disorders of phosphorus metabolism Plan: On replacement protocol (6) Hypernatremia ICD Codes: E87.0 - Hyperosmolality and hypernatremia Plan: corrected, stop IVF encourage oral fluid intake (7) GI bleed ICD Codes: K92.2 - Gastrointestinal hemorrhage, unspecified Plan: GI is following off Protonix gtt , on intermittent dosage s/p EGD, Rodarte's esophagus noted; blood thought to be swallowed/vomited but came from ETT in lungs Plan His condition has improved. We will sign off at this time. Please call us if needed (Flor Yoon) Plan patient was seen and examined. Agree with above assessment and plan. I will sign off at this time. (David Catsellanos MD) Problem Qualifiers (1) Acute kidney failure: Qualified Codes: N17.9 - Acute kidney failure, unspecified (2) DM (diabetes mellitus): Flor Yoon Jul 11, 2017 10:19 David Castellanos MD Jul 11, 2017 14:33
[2017-07-11] MEDS: ICU - SODIUM PHOSPHATE 30 MMOL/NS 250 ML IV PRN ×2 (11:01)
[2017-07-11] MEDS: TIOTROPIUM BROMIDE 18 MCG INH INH SCH (11:56)
[2017-07-11] MEDS: BUDESONIDE-FORMOTEROL 160/4.5 MCG INHALER INH SCH ×2 (11:56→20:02)
--- NOTE | 2017-07-11 13:08 | RADRPT ---
EXAM DATE/TIME: 07/11/2017 12:42 [facility] COMPARISON: CHEST SINGLE AP, July 11, 2017, 4:03. INDICATIONS : Evaluate for infiltrate and pneumonia. RADIATION DOSE: 5.52 CTDIvol (mGy) MEDICAL HISTORY : Cardiovascular disease. Hypertension. Diabetes mellitus type 2. dementia SURGICAL HISTORY : None. ENCOUNTER: Initial ACUITY: 4 - 6 days PAIN SCALE: 2/10 LOCATION: chest TECHNIQUE: Volumetric scanning of the chest was performed. Using automated exposure control and adjustment of t he mA and/or kV according to patient size, radiation dose was kept as low as reasonably achievable to obtain optimal diagnostic quality images. DICOM format image data is available electronically for r eview and comparison. Follow-up recommendations for detected pulmonary nodules are based at a minimum on nodule size and pa tient risk factors according to Fleischner Society Guidelines. FINDINGS: LUNGS: There is a right-sided chest tube in place. The chest tube appears to be within the fissure between t he right upper and right lower lung. There continues to be a moderate right pneumothorax. There is a patchy infiltrate in the posterior right upper lung. There is bibasilar infiltrates suggestive of ate lectasis. The rest of the left lung is clear and well aerated. No significant mediastinal shift is se en. PLEURAE: Very small bilateral effusions. MEDIASTINUM: The heart and great vessels demonstrate no acute abnormality. There is no mediastinal or hilar lymph adenopathy. AXILLAE: Within normal limits. No lymphadenopathy. There is subcutaneous emphysema in the soft tissues along the right chest wall extending up into the neck. MUSCULOSKELETAL: Primary degenerative changes. MISCELLANEOUS: The visualized upper abdominal organs demonstrate no acute abnormality. There are calcifications in t he pancreas suggestive of chronic pancreatitis. The gallbladder has been surgically removed. CONCLUSION: 1. The right-sided chest tubes is in place positioned within the right lung fissure. This is probably preventing the right lung from reexpanding. 2. Moderate right pneumothorax 3. Patchy infiltrate in the posterior right upper lung. 4. Bibasilar infiltrates suggestive of atelectasis. 5. Small bilateral effusions. Sam Ruiz MD on July 11, 2017 at 13:02 Board Certified Radiologist. This report was verified electronically.
--- NOTE | 2017-07-11 13:13 | MB ---
cc: ROBBY ALMARAZ DATE OF CONSULTATION 07/11/2017 REASON FOR CONSULTATION Pneumothorax and hemoptysis. HISTORY OF PRESENT ILLNESS This is a 66-year-old white male with a past history of diabetes and a history of UTI and schizophrenia, as well as COPD who was admitted via the emergency room due to altered mental status and syncopal episodes. The patient was hypotensive and was septic upon admission to the ER. He was given normal saline for hydration, antibiotics including Zosyn, vancomycin and had to be on pressors including Levophed. Attempts were made to place a central line and the patient apparently had a right pneumothorax and he had to have a chest tube in place. His condition did improve with hydration and IV antibiotic therapy and his lactic acidemia improved. The patient is in the intensive care unit now on oxygen via nasal cannula at three liters. He did have mild hemoptysis, complains of chest soreness. He has some back pain. He is short of breath and seems somewhat agitated and confused and does have a longstanding history of schizophrenia and behavioral disturbances. PAST HISTORY Includes: 1. Chronic atrial fibrillation 2. Hypertension 3. Schizophrenia 4. Diabetes mellitus type 2 5. Dyslipidemia 6. Chronic kidney disease 7. Dementia PAST SURGICAL HISTORY 1. Exploratory laparotomy 2. History of left thoracotomy. 3. Previous tracheostomy. MEDICATIONS List was reviewed from the chart. ALLERGIES OLANZAPINE AND CALAMINE. HABITS The patient smoked one-pack per day for over 35 years. He lives in a residential. Alcohol use, none. FAMILY HISTORY Noncontributory SYSTEM REVIEW The patient is unable to respond appropriately. He seems somewhat agitated and does not answer questions well. PHYSICAL EXAMINATION This averagely built middle-aged man is alert and anxious. VITAL SIGNS: Blood pressure 105/60, pulse is 65, respirations are 20 and temperature 98.2. HEENT: Head normocephalic. Pupils reactive. Tongue is moist. Throat is injected. Nasal mucosa is clear. NECK: Supple. No bruits or thyroid enlargement. CHEST: Distant breath sounds and wheezes were scattered in the upper lung khan. HEART: The heart were irregular S1-S2. No murmur. ABDOMEN: Soft and protuberant. Mild epigastric tenderness. Bowel sounds are active. No organomegaly. EXTREMITIES: No edema. Peripheral pulses are well felt. The patient does move all of his extremities well with no gross motor deficits. NEUROLOGIC: Cranial nerves are grossly intact. SKIN: No lesions are noted. IMPRESSION 1. Septic shock, resolved 2. Right pneumothorax 3. COPD 4. Hemoptysis 5. Chronic atrial fibrillation 6. Hyperlipidemia and hypertension 7. Paranoid schizophrenia PLAN The patient will be placed on O2 at two liters nebulized DuoNeb solution q.i.d. and the patient will have a repeat chest x-ray performed. We will continue with antibiotic coverage as ordered and a CT scan of the chest to be done to evaluate him for any nodules or infiltrates. Chest tube will be placed to suction and if the pneumothorax resolves in the next day or two, the chest tube will be clamped and removed. I will also advise incentive spirometry every two hours. Pulmonary function study to be done when he is clinically stable and inhaled steroid for his wheezing. Thank you Dr. Rodrigues for this consultation. MD KELLI Phoenix/FREEMAN /12:42 PM /1:03 PM
[2017-07-11] MEDS: DILTIAZEM HCL 30 MG TAB PO SCH ×3 (13:31→21:16)
[2017-07-11] MEDS: RESP: ALBUTEROL 2.5 MG/IPRATROPIUM 0.5 MG NEB (SCH) NEB ×2 (15:23→20:14)
[2017-07-11] MEDS: VASOPRESSIN INJ 40 UNITS in DEXTROSE 5% IN WATER 100ML INJ 98 ML IV SCH ×2 (18:36)
[2017-07-11] MEDS: HALOPERIDOL LACTATE ORAL CONC 10 MG/5 ML CUP PO SCH (20:03)
[2017-07-12] VITALS (21 sets, daily range): BP systolic 106–132; BP diastolic 58–74; PULSE 51–80; RESP 11–18; TEMP 96.5–97.9; O2SAT 92–100
[2017-07-12] MEDS: INSULIN ASPART SUPPLEMENTAL SCALE SQ SCH ×7 (00:08→23:42)
[2017-07-12] MEDS: CEFEPIME INJ 1,000 MG in SODIUM CHLORIDE 0.9% INJ 100 ML IV SCH ×3 (03:39→19:55)
[2017-07-12] MEDS: metroNIDAZOLE 500 MG INJ 100 ML IV SCH ×3 (03:39→19:55)
[2017-07-12] MEDS: CHLORHEXIDINE GLUCONATE 2 % 1 PACK (2 CLOTHS) TOP SCH (04:00)
[2017-07-12] MEDS: methylPREDNISolone SOD SUCC 40 MG/1 ML VIAL IV PUSH SCH ×3 (05:56→20:04)
[2017-07-12] MEDS: RESP: ALBUTEROL 2.5 MG/IPRATROPIUM 0.5 MG NEB (SCH) NEB ×4 (07:50→20:00)
[2017-07-12] MEDS: CHLORHEXIDINE 0.12% (ORAL KIT) 15 ML CUP MT SCH ×2 (08:00→19:55)
--- NOTE | 2017-07-12 09:08 | RADRPT ---
EXAM DATE/TIME: 07/12/2017 08:34 [facility] COMPARISON: CHEST SINGLE AP, July 11, 2017, 4:03. INDICATIONS : Shortness of breath. MEDICAL HISTORY : Hypertension. Cardiovascular disease. Dementia SURGICAL HISTORY : None. ENCOUNTER: Subsequent ACUITY: 1 week PAIN SCORE: 0/10 LOCATION: chest FINDINGS: There is a at least moderate pneumothorax seen on the right measuring up to 3.4 cm. This is clearly i ncreased in size since the prior exam. There continues to be a right chest tube. Shift of the mediast inum is not seen. The heart size is normal. There some mild hazy density at the left base with silhou etting of the left hemidiaphragm. Subcutaneous emphysema seen on the right. CONCLUSION: Persistent and enlarging right pneumothorax now measuring at least 3.4 cm in thickness over the right upper chest. There is a right chest tube in place. This information was relayed to Celeste, the patient's nurse by telephone. Ravi Zimmer MD on July 12, 2017 at 8:57 Board Certified Radiologist. This report was verified electronically.
[2017-07-12] MEDS: BENZTROPINE MESYLATE 2 MG TAB PO SCH (09:37)
[2017-07-12] MEDS: HALOPERIDOL LACTATE ORAL CONC 10 MG/5 ML CUP PO SCH ×2 (09:37→19:54)
[2017-07-12] MEDS: PANTOPRAZOLE SOD 40 MG DELAYED RELEASE TAB PO SCH ×2 (09:37→19:54)
[2017-07-12] MEDS: ASPIRIN 325 MG TAB PO SCH (09:37)
[2017-07-12] MEDS: ZIPRASIDONE HCL 60 MG CAP PO SCH ×2 (09:37→19:54)
[2017-07-12] MEDS: DILTIAZEM HCL 30 MG TAB PO SCH ×4 (09:37→19:54)
[2017-07-12] MEDS: TIOTROPIUM BROMIDE 18 MCG INH INH SCH (09:38)
[2017-07-12] MEDS: SODIUM CHLORIDE 0.9% FLUSH 10 ML FLUSH IV FLUSH SCH ×2 (09:38→19:54)
[2017-07-12] MEDS: BUDESONIDE-FORMOTEROL 160/4.5 MCG INHALER INH SCH ×2 (09:38→19:55)
[2017-07-12] MEDS ORDERED: fentaNYL CITRATE 250 MCG/5 ML AMP IV PUSH ONE (10:00)
[2017-07-12] MEDS ORDERED: MIDAZOLAM HCL 5 MG/5 ML VIAL IV PUSH ONE (10:00)
--- NOTE | 2017-07-12 10:10 | PD.PROCEDR ---
Procedure Note Procedure Right pigtail chest tube placement Indication pneumothorax, expanding Procedure Obtained consent, time out was performed. Patient was placed in optimal position. Right second intercostal space just above third rib was marked in mid clavicular line. Skin prepped with Chlorhexidine x3. Full barrier and sterile precautions were used, skin and subcutaneous tissue at the marked site was infiltrated with 1% lidocaine. A small skin carey was made with scalpel. Introducer needle was placed into the pleural space and momin of air was obtained. The guidewire was inserted through the needle and the needle was removed. Track was dilated and a 10 [place] pigtail catheter was introduced into the pleural space and directed towards the apex using Seldinger technique. Guide Wire was removed and pigtail catheter was attached to the pleural vac and placed on -40 wall suction. Chest x-ray postprocedure shows reexpansion of right lung. Patient tolerated procedure well Winnie Rodrigues MD Jul 12, 2017 10:10
--- NOTE | 2017-07-12 10:13 | HHI.CCPN ---
Subjective Remarks/Hospital Course All history is obtained from discussion with the ED physician and chart review as the patient is intubated and altered. Patient is a 66-[facility]-old male [facility] resident with past medical history with schizophrenia dementia with behavioral disturbances, COPD, type 2 diabetes, hypertension, dyslipidemia, chronic atrial fibrillation. He apparently developed altered mentation, decreased level of consciousness while at the breakfast table in his NH. He passed out while eating breakfast, had been having syncopal episodes recently. Initial blood pressure systolic was in the 50s and patient was aggressively resuscitated in the ED with a total of 3 L normal saline. Broad-spectrum antibiotics given with Zosyn. The patient appears to be septic with urinary source. He's been started on Levophed to keep map above 65. Abnormal labs include Lactic acid is 4.7, sodium of 148, bicarbonate 12.4, BUN 125/creatinine 6.39, blood glucose was 639. WBC count was 16,000. There is evidence of aspiration as per the intubation note from Dr. Cai I evaluated the patient in the ED. He is intubated sedated but withdrawals to pain on all 4 extremities. His remains hypotensive tachycardic with A. fib with RVR. Levophed is at 2 mcg/m. Additional 1 L fluid boluses ordered, patient will need central line placement and further resuscitation. Antibiotics were modified to vancomycin cefepime and Flagyl. Due to recent history of diarrhea, C. difficile had been ordered 07/07: Remains intubated sedated. Versed just held. On Cardizem infusion for A. fib with RVR. Remains on Levophed at 19 mcg/m. UO excellent 2.8L in 24 hours. Creat improving 2.7 today. 07/08: Remains intubated sedated Versed was restarted yesterday. There is expansion of right pneumothorax, chest tube patency checked. Will repeat chest x-ray. Creatinine now improved to 1.3 but encephalopathy persists. UO 1.3L. sodium is improved to 149, from 151 LATE NOTE ENTRY FOR 07/09/17: Patient was weaned and extubated but developed hematemesis. GI consulted for EGD today. Hemodynamically stable off pressors 07/10/17: Patient developed hematemesis yesterday and had EGD by Dr. Roberts. Showed Long segment Rodarte's. Overnight was left intubated, SBT and extubation today. 07/11/17: Overall doing better patient appears comfortable breathing comfortably. Chest x-ray shows decreasing pneumothorax. RN reports mild hemoptysis. Will consult pulmonology for COPD with hemoptysis 07/12: CXR today showing expanding R apical pneumo now 3.[address] chest yesterday shows 20 F chest in the lung fissure preventing lung reexpansion. New pigtail chest tube placed aimed at apex with resolution of apical pneumothorax. patient tolerated well. Objective Vital Signs Date Time Temp Pulse Resp B/P (MAP) Pulse Ox O2 Delivery O2 Flow Rate FiO2 07/12/17 07:50 92 21 07/12/17 06:00 57 07/12/17 06:00 18 131/74 (93) 07/12/17 00:00 97.7 07/10/17 09:52 Nasal Cannula 3 Intake and Output 07/12/17 07/12/17 07/13/17 08:00 16:00 00:00 Intake Total 640 ml Output Total 1100 ml Balance -460 ml Result Diagram: 07/11/17 0540 07/11/17 0540 Imaging CXR no acute findings CT head negative for acute findings Objective Remarks GENERAL: Cachectic poorly kempt elderly male who is on NC SKIN: Pale and cool, dry HEAD: Atraumatic. Normocephalic. EYES: Pupils equal and round, reactive. ENT: Mucous membranes dry. Edentulous. NECK: Trachea midline. No JVD. Well-healed previous trach incision CARDIOVASCULAR: Atrial fibrillation rate controlled. No obvious murmur appreciated. RESPIRATORY: Coarse breath sounds bilaterally, and entry is diminished on the right side. Few wheezes. Well-healed left thoracotomy scar. Right chest tube in place. Positive subcut emphysema GASTROINTESTINAL: Abdomen soft, non-distended. Well-healed vertical abdominal scar MUSCULOSKELETAL: No obvious deformities. Erythema over bilateral knee NEUROLOGICAL: Alert awake, follows commands. No focal deficits A/P Assessment and Plan NEURO: Acute metabolic encephalopathy-resolved - Mental status change most likely secondary to metabolic encephalopathy resolved - CT of the head negative for acute findings - Continue Geodon and benztropine. resumed Haldol 07/11/17 RESP: Acute respiratory failure -resolved COPD with exacerbation Right-sided pneumothorax, persistent Hemoptysis - Tolerated SBT and extubated 07/09, reintubated in the OR for EGD. Extubated again 07/10/17 - DuoNeb every 6 hours and when necessary. IV Solu-Medrol 40 q8 - Continue Symbicort, Spiriva. Consult pulmonology Dr. Hargrove for hemoptysis. CT thorax -no mass - CXR 07/12 expanding right apical pneumothorax- new 10F pigtail placed with re- expansion (20 F chest tube is sitting in lung fissure and for this reason not expanding lung) - See ID section for broad-spectrum antibiotic - F/U Sputum culture-MSSA CV: Septic shock A. fib with RVR - s/p Normal saline IV fluids 4L bolus on admission. DC quarter-normal saline infusion - DC Cardizem gtt, continue PO cardizem - Remains off pressors - 2d echo EF 55-60%. Continue aspirin - Not a candidate for long-term anticoagulation GI: Long segment Rodarte's Esophagus Hematemesis - Diet per GI. IV Protonix - Advance diet per GI : Acute kidney failure - Acute kidney failure is most likely from severe dehydration, creat improved - IV to KVO Monitor renal function closely. No Avery indicated - Nephrology following ID: Septic shock -resolved UTI MSSA pneumonia - Currently on Ceftriaxone. Off vanc Flagyl and cefepime HEME: - Monitor CBC, CMP, coags ENDO: Hyperglycemia, type 2 diabetes - Sliding-scale with NovoLog PROPH: Bilateral lower extremity SCDs. Holding Lovenox due to hemoptysis. IV Protonix LINES: - Utilize peripheral IVs, central line if needed Level 3 D/W Dr. Gaona. Continue ICU care due to persistent pneumothorax Winnie Rodrigues MD Jul 12, 2017 10:13
--- NOTE | 2017-07-12 10:23 | RADRPT ---
EXAM DATE/TIME: 07/12/2017 10:06 [facility] COMPARISON: CHEST SINGLE AP, July 12, 2017, 8:34. INDICATIONS : Status post right sided chest tube placement. MEDICAL HISTORY : Hypertension. Cardiovascular disease. Dementia. SURGICAL HISTORY : None. ENCOUNTER: Subsequent ACUITY: 1 day PAIN SCORE: Non-responsive. LOCATION: chest FINDINGS: There is a new right pigtail chest tube in place with resolution of previously seen pneumothorax. The previously seen right chest tube is still present. The heart size is normal. There is mild increased density at the left base. There continues to be subcutaneous emphysema seen on the right side. CONCLUSION: Successful treatment of the moderate pneumothorax on the right with a new right pigtail chest tube. Ravi Zimmer MD on July 12, 2017 at 10:19 Board Certified Radiologist. This report was verified electronically.
--- NOTE | 2017-07-12 16:47 | MB ---
cc: GEMA PALENCIA DATE OF CONSULTATION 07/12/17 REASON FOR CONSULTATION History of bladder cancer. PATIENT PROFILE The patient is being seen in the ICU. He has a history of paranoid schizophrenia and is able to provide very limited information. He states that he lives in the [facility] at [facility]. He is . He has no children. He was born in [facility]. 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 He smokes a pack of cigarettes per day. he does not drink alcohol. HISTORY OF PRESENT ILLNESS The patient is a 66-year-old male who was sent to the emergency room at [facility] from the [facility] when he passed out. He was found to have a urinary tract infection and had atrial fibrillation. I am asked to see him because of a history of bladder cancer. In looking back through records, on 05/05/2017 he had a biopsy of a bladder tumor. The pathology report reads gross description: aggregate and fragments of tissue measuring 0.3 x 0.2 x 0.1 cm. 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 In looking through surgical records, on 05/05/2017 Dr. Dockery performed cystoscopy with biopsy of a bladder mass. He was found to have a large, greater than 6 cm frondular mass originating from the right bladder wall obscuring the right ureteral orifice. Following this, it is unclear to me what took place. I do not know if he had resection of the bladder mass or what the follow up has been. He is now being seen in the ICU. He has had a number of problems including metabolic encephalopathy, respiratory failure, exacerbation of COPD, atrial fibrillation, intubation and a transient renal failure. On 07/06/2017, he had a creatinine of 6.39, current creatinine is 0.46. Imaging studies have included a CT of the chest on 07/11/2017 done without IV contrast showing a right chest tube, a right pneumothorax, infiltrates involving the right upper lung. He had a renal ultrasound on 07/06/2017 showing echogenic kidneys bilaterally compatible with medical renal disease, possible pelvic mass. CT was recommended for further evaluation if clinically indicated. On 04/24/2017, he had a CT scan of the abdomen and pelvis and was found to have a large enhancing mass in the posterior right wall of the bladder measuring 5.3 cm. There was no pelvic adenopathy. PAST SURGICAL HISTORY 1. Biopsy of the bladder May 05, 2017 revealing low grade noninvasive urothelial cancer. 2. ? Previous laparotomy and thoracotomy PAST MEDICAL HISTORY 1. Type 2 diabetes 2. COPD 3. Schizophrenia 4. Tobacco use 5. Hypertension, 6. Dementia. ALLERGIES OLANZAPINE CALAMINE FAMILY HISTORY Unobtainable. MEDICATIONS Current 1. Aspirin 2. pine 3. Haldol 4. Metformin 5. Geodon. These are the medicines prior to admission. REVIEW OF SYSTEMS Essentially unobtainable. The patient wants to go home. He does not voice any complaints. His voice is barely audible. PHYSICAL EXAMINATION afebrile, rr 18 pulse 90 GENERAL: A disheveled male appearing much older than his age. There is some generalized muscular atrophy. HEENT: head is normocephalic. Sclerae and conjunctivae are normal. Oropharynx - no teeth. There is no adenopathy. HEART: Regular rhythm. LUNGS: Clear. ABDOMEN: Without hepatosplenomegaly, masses or tenderness. EXTREMITIES: No edema. MUSCULOSKELETAL: No bone pain. NEUROLOGIC: No focal weakness. PSYCHIATRIC: Affect is inappropriate, voice soft, memory poor. ASSESSMENT The patient is a 66-year-old male who presented with a large approximately 6 cm mass in the bladder along the right lateral wall. He had a biopsy and this revealed a low grade in situ cancer. Whether this is outside sales representative of the entire tumor or not is unclear. I do not see a pathology report indicating that the entire tumor has been removed and I am unaware of any followup that has been put in place. His situation is obviously difficult due to social problems, i.e., schizophrenia, dementia and other medical issues. PLAN The patient should be seen by Urology. If there still is a residual mass then it will need to be resected. He will need some type of surveillance as he is likely to develop recurrence or additional tumors in the bladder. I am not sure what can be done given his significant cognitive problems. I have placed a consult with Dr. Dockery who is a urologist and did the original cystoscopy and biopsy demonstrating the in situ urothelial cancer. MD BRINDA Scott/ /3:58 PM /4:30 PM JONATHAN
[2017-07-13] VITALS (30 sets, daily range): BP systolic 90–133; BP diastolic 60–71; PULSE 54–78; RESP 11–40; TEMP 96.8–98.3; O2SAT 83–100
[2017-07-13] MEDS: metroNIDAZOLE 500 MG INJ 100 ML IV SCH ×2 (02:31→12:23)
[2017-07-13] MEDS: CHLORHEXIDINE GLUCONATE 2 % 1 PACK (2 CLOTHS) TOP SCH (02:32)
[2017-07-13] MEDS: CEFEPIME INJ 1,000 MG in SODIUM CHLORIDE 0.9% INJ 100 ML IV SCH ×2 (02:32→12:21)
[2017-07-13] MEDS: INSULIN ASPART SUPPLEMENTAL SCALE SQ SCH ×5 (04:00→20:00)
[2017-07-13] MEDS: methylPREDNISolone SOD SUCC 40 MG/1 ML VIAL IV PUSH SCH ×3 (05:03→20:47)
--- NOTE | 2017-07-13 05:44 | RADRPT ---
EXAM DATE/TIME: 07/13/2017 03:45 [facility] COMPARISON: CT THORAX W/O CONTRAST, July 11, 2017, 12:42. CHEST SINGLE AP, July 12, 2017, 10:06. INDICATIONS : Shortness of breath, pneumothorax. MEDICAL HISTORY : Hypertension. Cardiovascular disease. Dementia SURGICAL HISTORY : Right sided chest tube ENCOUNTER: Subsequent ACUITY: 1 week PAIN SCORE: Non-responsive. LOCATION: Right chest FINDINGS: A single AP semierect view of the chest was obtained and again demonstrates the small bore right-side d chest tube in place and a larger standard chest tube. There is a small right apical pneumothorax no w identified measuring up to approximately 1.4 cm in diameter. Subcutaneous emphysema is noted over t he right upper and lateral chest wall. There are no confluent infiltrates or effusions. The heart and mediastinal structures remain within normal limits. CONCLUSION: 1. Small right apical pneumothorax now identified. 2. The lungs remain clear. Kenyon Carlos MD on July 13, 2017 at 5:41 Board Certified Radiologist. This report was verified electronically.
[2017-07-13] MEDS: RESP: ALBUTEROL 2.5 MG/IPRATROPIUM 0.5 MG NEB (SCH) NEB ×3 (07:51→15:57)
[2017-07-13] MEDS: CHLORHEXIDINE 0.12% (ORAL KIT) 15 ML CUP MT SCH ×2 (08:00→20:00)
[2017-07-13] MEDS: BENZTROPINE MESYLATE 2 MG TAB PO SCH (09:00)
[2017-07-13] MEDS: ZIPRASIDONE HCL 60 MG CAP PO SCH ×2 (09:00→20:44)
[2017-07-13] MEDS: SODIUM CHLORIDE 0.9% FLUSH 10 ML FLUSH IV FLUSH SCH ×2 (09:00→20:46)
[2017-07-13] MEDS: DILTIAZEM HCL 30 MG TAB PO SCH ×3 (09:00→20:44)
[2017-07-13] MEDS: ASPIRIN 325 MG TAB PO SCH (09:00)
[2017-07-13] MEDS: PANTOPRAZOLE SOD 40 MG DELAYED RELEASE TAB PO SCH ×2 (09:00→20:44)
[2017-07-13] MEDS: HALOPERIDOL LACTATE ORAL CONC 10 MG/5 ML CUP PO SCH ×2 (09:00→20:46)
[2017-07-13 09:32] LABS: AUTOMATED NEUTROPHIL # 7.6 TH/MM3 (1.8-7.7); BASOPHIL % 0.2 % (0.0-2.0); HEMATOCRIT 34.9 % (39.0-51.0); HEMO FLAGS DIFF FINAL; LYMPH % 1.5 % (9.0-44.0); LYMPHOCYTE # 0.1 TH/MM3 (1.0-4.8); MEAN CELL VOLUME 91.8 FL (80.0-100.0); MEAN CORPUSCULAR HEMOGLOBIN 31.4 PG (27.0-34.0); MEAN CORPUSCULAR HGB CONC 34.2 % (32.0-36.0); MONO % 2.4 % (0.0-8.0); NEUT % 95.9 % (16.0-70.0); PLATELET COUNT 151 TH/MM3 (150-450); RED CELL DISTRIBUTION WIDTH 13.9 % (11.6-17.2); WHITE BLOOD COUNT 7.9 TH/MM3 (4.0-11.0)
[2017-07-13 09:56] LABS: ANION GAP 7 MEQ/L (5-15); AST (GOT) 28 U/L (15-37); BICARBONATE 25.5 MEQ/L (21.0-32.0); CHLORIDE 107 MEQ/L (98-107); GLOMERULAR FILTRATION RATE 170 ML/MIN (>89); POTASSIUM 4.3 MEQ/L (3.5-5.1); SODIUM (NA) 139 MEQ/L (136-145)
[2017-07-13 09:58] LABS: BLOOD UREA NITROGEN 20 MG/DL (7-18)
[2017-07-13 10:02] LABS: ALKALINE PHOSPHATASE 66 U/L (45-117); ALT (GPT) 44 U/L (12-78); TOTAL BILIRUBIN ADULT 0.5 MG/DL (0.2-1.0)
--- NOTE | 2017-07-13 12:29 | PD.ONC.PN ---
Subjective Subjective Remarks Afebrile Remains confused and asking to go home Objective Data Date Time Temp Pulse Resp B/P (MAP) Pulse Ox O2 Delivery O2 Flow Rate FiO2 07/13/17 08:00 93 07/13/17 06:00 59 07/13/17 04:00 55 07/13/17 04:00 97.9 55 12 133/71 (91) 96 07/13/17 02:00 54 07/13/17 00:00 98.2 60 11 119/66 (83) 94 07/13/17 00:00 60 07/12/17 22:00 65 07/12/17 20:00 66 07/12/17 20:00 97.9 66 13 116/58 (77) 95 07/12/17 18:00 72 07/12/17 17:00 69 07/12/17 17:00 69 11 120/58 (78) 96 07/12/17 16:00 71 12 106/59 (75) 95 07/12/17 16:00 71 07/12/17 15:00 77 07/12/17 14:00 80 07/12/17 13:00 65 07/13/17 07/13/17 07/13/17 07:00 15:00 23:00 Intake Total 1280 ml Output Total 1229 ml Balance 51 ml Result Diagram: 07/13/1790807/13/17908 Laboratory Results Laboratory Tests Test 07/13/17 09:09 White Blood Count 7.9 TH/MM3 Red Blood Count 3.80 MIL/MM3 Hemoglobin 11.9 GM/DL Hematocrit 34.9 % Mean Corpuscular Volume 91.8 FL Mean Corpuscular Hemoglobin 31.4 PG Mean Corpuscular Hemoglobin Concent 34.2 % Red Cell Distribution Width 13.9 % Platelet Count 151 TH/MM3 Mean Platelet Volume 8.6 FL Neutrophils (%) (Auto) 95.9 % Lymphocytes (%) (Auto) 1.5 % Monocytes (%) (Auto) 2.4 % Eosinophils (%) (Auto) 0.0 % Basophils (%) (Auto) 0.2 % Neutrophils # (Auto) 7.6 TH/MM3 Lymphocytes # (Auto) 0.1 TH/MM3 Monocytes # (Auto) 0.2 TH/MM3 Eosinophils # (Auto) 0.0 TH/MM3 Basophils # (Auto) 0.0 TH/MM3 CBC Comment DIFF FINAL Differential Comment Hematology Comments Blood Urea Nitrogen 20 MG/DL Creatinine 0.49 MG/DL Random Glucose 267 MG/DL Total Protein 4.5 GM/DL Albumin 2.4 GM/DL Calcium Level 8.4 MG/DL Alkaline Phosphatase 66 U/L Aspartate Amino Transf (AST/SGOT) 28 U/L Alanine Aminotransferase (ALT/SGPT) 44 U/L Total Bilirubin 0.5 MG/DL Sodium Level 139 MEQ/L Potassium Level 4.3 MEQ/L Chloride Level 107 MEQ/L Carbon Dioxide Level 25.5 MEQ/L Anion Gap 7 MEQ/L Estimat Glomerular Filtration Rate 170 ML/MIN Imaging Studies Last 24 hours Impressions Chest X-Ray 07/13/17 0600 Signed Impressions: Service Date/Time: Thursday, July 13, 2017 03:45 - CONCLUSION: 1. Small right apical pneumothorax now identified. 2. The lungs remain clear. Kenyon Carlos MD Administered Medications Medications (Trade) Dose Ordered Sig/[place] Route PRN Reason Start Time Stop Time Status Last Admin Dose Admin Sodium Chloride (NS Flush) 2 ml BID IV FLUSH 07/06/17 21:00 07/13/17 09:00 Albuterol Sulfate (Albuterol Neb) 2.5 mg Q4HR NEB PRN INH SHORTNESS OF BREATH 07/06/17 12:00 07/08/17 10:33 Chlorhexidine Gluconate (Peridex 0.12% Liq) 15 ml BID@08,20 MT 07/06/17 20:00 07/13/17 08:00 Enoxaparin Sodium (Lovenox Inj) 30 mg Q24H SQ 07/06/17 11:30 Future Hold 07/09/17 10:55 Chlorhexidine Gluconate (Chlorhexidine 2% Cloth) Taper DAILY@04 TOP 07/07/17 04:00 07/03/18 03:59 07/13/17 02:32 Metronidazole 100 ml @ 100 mls/hr Q8H IV 07/06/17 11:15 07/13/17 02:31 Cefepime HCl 1000 mg/Sodium Chloride 100 ml @ 200 mls/hr Q8H IV 07/06/17 11:30 07/13/17 02:32 Insulin Aspart (NovoLOG SUPPLEMENTAL SCALE) 1 Q4HR SQ 07/06/17 12:15 07/13/17 08:00 Aspirin (Aspirin) 325 mg DAILY PO 07/07/17 09:00 07/13/17 09:00 Benztropine Mesylate (Cogentin) 2 mg DAILY PO 07/07/17 09:00 07/13/17 09:00 Ziprasidone (Geodon) 60 mg BID PO 07/06/17 21:00 07/13/17 09:00 Sodium Phosphate 30 mmol/Sodium Chloride 260 ml @ 43.333 mls/ hr UNSCH PRN IV ELECTROLYTE REPLACEMENT 07/08/17 05:45 07/11/17 11:01 Potassium Phosphate 30 mmol/ Sodium Chloride 260 ml @ 43.333 mls/ hr UNSCH PRN IV ELECTROLYTE REPLACEMENT 07/08/17 05:45 07/08/17 06:23 Methylprednisolone Sodium Succinate (SoluMEDROL INJ) 40 mg Q8HR IV PUSH 07/08/17 14:00 07/13/17 05:03 Pantoprazole Sodium (Protonix) 40 mg Q12HR PO 07/10/17 21:00 07/13/17 09:00 Haloperidol Lactate (Haldol Lactate Liq) 12.5 mg BID PO 07/11/17 21:00 07/13/17 09:00 Diltiazem HCl (Cardizem) 30 mg QID PO 07/11/17 13:00 07/13/17 09:00 Budesonide/ Formoterol Fumarate (Symbicort 160-4.5 Inh) 1 puff Q12HR INH 07/11/17 09:45 07/12/17 19:55 Tiotropium [place] (Spiriva Inh) 18 mcg DAILY INH 07/11/17 09:45 07/12/17 09:38 Albuterol/ Ipratropium (Duoneb Neb) 1 ampule QID NEB NEB 07/11/17 16:00 07/13/17 07:51 Objective Remarks GENERAL: Chronically ill appearing older male, resting in bed in no distress. SKIN: Warm and dry. Few scattered ecchymoses to BLE EYES: No injection or drainage. NECK: Supple, trachea midline. CARDIOVASCULAR: +S1/S2. Regular rhythm. RESPIRATORY: Clear anteriorly. Breathing unlabored. GASTROINTESTINAL: Abdomen soft, non-tender. EXTREMITIES: No cyanosis, or edema. MUSCULOSKELETAL: Generalized weakness NEUROLOGICAL: No obvious focal deficit. Awake, alert, and oriented x3. Assessment/Plan Assessment 66 y/o male with urothelial cancer admitted with decreased level of consciousness. Oncology consulted for recommendations. Plan Will obtain CT Abdomen/Pelvis with IV Contrast to reevaluate pelvic mass. The pt will need intervention as it is likely this will continue to grow. Urology consulted and will await recommendations. Followup will be a challenge as the pt has cognitive difficulties and resides in a senior care. Attending Statement The exam, history, and the medical decision-making described in the above note were completed with the assistance of the mid-level provider. I reviewed and agree with the findings presented. I attest that I had a [id number] encounter with the patient on the same day, and personally performed and documented my assessment and findings in the medical record. reviewed previous ct scan and bladder mass very easy to identify and suspect this may be what we are seeing on the ultrasound . Will order CT of Abd and Pelvis with iv contrast but no PO contrast. Await urology consult. Sydnee Mcginnis Jul 13, 2017 12:29 Emanuel Denny MD Jul 13, 2017 12:41
--- NOTE | 2017-07-13 14:48 | MB ---
cc: MARYJANE STANFORD MD DATE OF CONSULTATION: 07/13/2017. REASON FOR CONSULTATION: Bladder cancer. HISTORY OF PRESENT ILLNESS: The patient is a 66-year-old male with history of paranoid schizophrenia and atrial fibrillation who was sent to the emergency room on July 06 from [facility] after he had passed out. He was subsequently intubated in the emergency room and admitted for further evaluation. During workup, he was found to have a urinary tract infection and chronic atrial fibrillation. During his stay, had a number of issues including metabolic encephalopathy, respiratory failure, exacerbation of COPD, atrial fibrillation and transient renal failure. On admission, he had a creatinine of 6.39 but it has since returned to 0.46. He is also noted to have a history of bladder cancer that was originally diagnosed by Dr. Dockery back in April. Dr. Emanuel Denny of medical oncology was originally consulted for this finding. Dr. Denny subsequently consulted urology due to his history of bladder cancer. On May 05, 2017, Dr. Dockery performed a cystoscopy and took several biopsies of his large bladder mass that was described as 6 cm in nature that was obscuring the right ureteral orifice. On discussion who is a very poor historian, he states he has not had any other surgery on his bladder but he does remember that procedure back in April. He denies any hematuria, unexplained weight loss or any unusual bone or back pain. He denies any issues with urination. He denies flank pain or abdominal pain. He denies history of kidney stones. REVIEW OF SYSTEMS See the history of present illness, otherwise all systems reviewed and otherwise negative. PAST SURGICAL HISTORY: 1. Cystoscopy. 2. Bladder biopsy. 3. Circumcision. 4. Questionable previous thoracotomy. PAST MEDICAL HISTORY: 1. Type 2 diabetes. 2. COPD. 3. Schizophrenia. 4. Bladder cancer. 5. Hypertension. 6. Dementia. ALLERGIES: 1. Olanzapine. 2. Calamine. FAMILY HISTORY Denies urolithiasis or genitourinary disease. MEDICATIONS: His medications include: 1. Aspirin 325 milligrams daily. 2. Haldol. 3. Metformin. 4. Geodon. PHYSICAL EXAMINATION: VITAL SIGNS: Temperature 97.9, pulse 59, blood pressure 133/71, satting 93% on room air. GENERAL: He is in no apparent distress. He appears disheveled and pretty much older than his stated age. HEAD, EYES, EARS, NOSE, THROAT: Head is normocephalic. His sclerae and conjunctivae are normal. Eyes - No scleral icterus. Extraocular muscles intact. NECK: The neck is supple. Trachea is midline. No jugular venous distention. SKIN: No ulcers or rashes. [place] and moist. LUNGS: Clear to auscultation bilaterally. No wheezes, rales or rhonchi. HEART: Irregularly irregular. No murmurs, rubs or gallops. ABDOMEN: The abdomen is soft, nontender and nondistended without mass. GENITOURINARY EXAM: There is no costovertebral angle tenderness bilaterally. His penis is circumcised. Testes descended bilaterally and of normal size and consistency without mass. He has a condom catheter in place draining clear yellow urine. MUSCULOSKELETAL: Full range of motion of all four extremities. Nontender. No cyanosis, clubbing or edema. NEUROLOGICAL: No focal weakness. Cranial nerves II through XII are grossly intact. PSYCHIATRIC: His affect in inappropriate. Poor memory. His voice is soft. LABS: White count 7.9, hemoglobin 11.9, hematocrit 34.9, platelet count 151,000. Sodium 139, potassium 4.3, chloride 107, bicarbonate 25.5, BUN 20, creatinine 0.49, glucose 267. IMAGING STUDIES: Renal ultrasound images were reviewed. I agree with the radiologist's report. No evidence of any hydronephrosis or kidney stones bilaterally. There is some evidence of medical renal disease. ASSESSMENT AND PLAN: The patient is a 66-year-old male with a history of paranoid schizophrenia, chronic atrial fibrillation on aspirin 325 milligrams with known bladder cancer. PLAN: 1. Agree with obtaining a CT of the abdomen and pelvis with and without IV contrast. Will follow up on imaging studies. 2. He does need a repeat cystoscopy and resection of bladder tumor in the future; however, he is currently taking aspirin 325 milligrams daily for his chronic atrial fibrillation. Due to the potential large nature of this mass and the amount of resection required, he will need to keep the aspirin on hold for a minimum of seven days prior to the surgery due to the severe risk of bleeding. Since his hemoglobin is stable and his urine is clear with no evidence of any blood in his urine, this could always be done as an outpatient basis. Thank you for this consultation. Please call with any questions. MD GRAHAM Hammond/ALIZA /1:22 PM /2:29 PM
--- NOTE | 2017-07-13 15:42 | HHI.CCPN ---
Subjective Remarks/Hospital Course All history is obtained from discussion with the ED physician and chart review as the patient is intubated and altered. Patient is a 66-[facility]-old male [facility] with past medical history with schizophrenia dementia with behavioral disturbances, COPD, type 2 diabetes, hypertension, dyslipidemia, chronic atrial fibrillation. He apparently developed altered mentation, decreased level of consciousness while at the breakfast table in his NH. He passed out while eating breakfast, had been having syncopal episodes recently. Initial blood pressure systolic was in the 50s and patient was aggressively resuscitated in the ED with a total of 3 L normal saline. Broad-spectrum antibiotics given with Zosyn. The patient appears to be septic with urinary source. He's been started on Levophed to keep map above 65. Abnormal labs include Lactic acid is 4.7, sodium of 148, bicarbonate 12.4, BUN 125/creatinine 6.39, blood glucose was 639. WBC count was 16,000. There is evidence of aspiration as per the intubation note from Dr. Cai I evaluated the patient in the ED. He is intubated sedated but withdrawals to pain on all 4 extremities. His remains hypotensive tachycardic with A. fib with RVR. Levophed is at 2 mcg/m. Additional 1 L fluid boluses ordered, patient will need central line placement and further resuscitation. Antibiotics were modified to vancomycin cefepime and Flagyl. Due to recent history of diarrhea, C. difficile had been ordered 07/07: Remains intubated sedated. Versed just held. On Cardizem infusion for A. fib with RVR. Remains on Levophed at 19 mcg/m. UO excellent 2.8L in 24 hours. Creat improving 2.7 today. 07/08: Remains intubated sedated Versed was restarted yesterday. There is expansion of right pneumothorax, chest tube patency checked. Will repeat chest x-ray. Creatinine now improved to 1.3 but encephalopathy persists. UO 1.3L. sodium is improved to 149, from 151 LATE NOTE ENTRY FOR 07/09/17: Patient was weaned and extubated but developed hematemesis. GI consulted for EGD today. Hemodynamically stable off pressors 07/10/17: Patient developed hematemesis yesterday and had EGD by Dr. Roberts. Showed Long segment Rodarte's. Overnight was left intubated, SBT and extubation today. 07/11/17: Overall doing better patient appears comfortable breathing comfortably. Chest x-ray shows decreasing pneumothorax. RN reports mild hemoptysis. Will consult pulmonology for COPD with hemoptysis 07/12: CXR today showing expanding R apical pneumo now 3.[address] chest yesterday shows 20 F chest in the lung fissure preventing lung reexpansion. New pigtail chest tube placed aimed at apex with resolution of apical pneumothorax. patient tolerated well. 07/13: Patient breathing comfortably, sitting up in bed. According to RN tries to get out of the bed. Chest x-ray today shows small apical pneumo, despite 2 chest tubes. Will assure patency of chest tubes Objective Vital Signs Date Time Temp Pulse Resp B/P (MAP) Pulse Ox O2 Delivery O2 Flow Rate FiO2 07/13/17 08:00 93 07/13/17 08:00 96.8 66 21 123/71 (88) 07/12/17 07:50 21 07/10/17 09:52 Nasal Cannula 3 Intake and Output 07/13/17 07/13/17 07/14/17 08:00 16:00 00:00 Intake Total 1280 ml Output Total 1229 ml Balance 51 ml Result Diagram: 07/13/1790807/13/17908 Imaging CXR no acute findings CT head negative for acute findings Objective Remarks GENERAL: Cachectic poorly kempt elderly male who is on NC, sitting up in bed SKIN: Pale and cool, dry HEAD: Atraumatic. Normocephalic. EYES: Pupils equal and round, reactive. ENT: Mucous membranes dry. Edentulous. NECK: Trachea midline. No JVD. Well-healed previous trach incision CARDIOVASCULAR: Atrial fibrillation rate controlled. No obvious murmur appreciated. RESPIRATORY: Coarse breath sounds, entry is diminished on the right side. Few wheezes. Well-healed left thoracotomy scar. Right chest tubes x2 in place both to -40CM GASTROINTESTINAL: Abdomen soft, non-distended. Well-healed vertical abdominal scar MUSCULOSKELETAL: No obvious deformities. Erythema over bilateral knee NEUROLOGICAL: Alert awake, follows commands. No focal deficits A/P Assessment and Plan NEURO: Acute metabolic encephalopathy-resolved History of schizophrenia - Mental status change most likely secondary to metabolic encephalopathy resolved - CT of the head negative for acute findings - Continue Geodon and benztropine. resumed Haldol 07/11/17 RESP: Acute respiratory failure -resolved COPD with exacerbation Right-sided pneumothorax, persistent Hemoptysis - Tolerated SBT and extubated 07/09, reintubated in the OR for EGD. Extubated again 07/10/17 - DuoNeb every 6 hours and when necessary. IV Solu-Medrol 40 q8 - Continue Symbicort, Spiriva. Pulmonology Dr. Hargrove for hemoptysis. CT thorax -no mass - CXR 07/12 expanding right apical pneumothorax- new 10F pigtail placed with resolution of pneumothorax (20 F chest tube is sitting in lung fissure and for this reason not expanding lung) - Today there is small reexpansion of the pneumothorax, I will assure the patency of chest tubes - Sputum culture-MSSA CV: Septic shock A. fib with RVR - s/p Normal saline IV fluids 4L bolus on admission. Off all IVF - Continue PO cardizem - Remains off pressors - 2d echo EF 55-60%. Continue aspirin - Not a candidate for long-term anticoagulation, continue Aspirin GI: Long segment Rodarte's Esophagus Hematemesis - Diet per GI. IV Protonix - Advance diet per GI /Heme: Acute kidney failure Urothelial cancer - Acute kidney failure is most likely from severe dehydration, creat improved - IV to KVO Monitor renal function closely. No Avery indicated - Nephrology following - Further recommendations regarding urothelial cancer by oncology and urology ID: Septic shock -resolved UTI MSSA pneumonia - Currently on Ceftriaxone. Off vanc Flagyl and cefepime HEME: - Monitor CBC, CMP, coags ENDO: Hyperglycemia, type 2 diabetes - Sliding-scale with NovoLog PROPH: Bilateral lower extremity SCDs. Holding Lovenox due to hemoptysis, resume today. IV Protonix LINES: - Utilize peripheral IVs, central line if needed Level 3 D/W Dr. Gaona. Continue ICU care due to persistent pneumothorax Winnie Rodrigues MD Jul 13, 2017 15:42
[2017-07-13] MEDS: cefTRIAXone INJ 2,000 MG in SODIUM CHLORIDE 0.9% INJ 100 ML IV SCH (16:00)
[2017-07-13] MEDS ORDERED: IOHEXOL 350 MG/ML 10 ML VIAL (for RAD DIAG) IVCONTRAST ONE (18:20)
--- NOTE | 2017-07-13 18:56 | RADRPT ---
EXAM DATE/TIME: 07/13/2017 18:15 [place] COMPARISON: CT THORAX W/O CONTRAST, July 11, 2017, 12:42. CT ABDOMEN & PELVIS W CONTRAST, April 24, 2017, 11 :40. INDICATIONS : Abnormal prior Ct, pelvic mass. IV CONTRAST: 78 cc Omnipaque 350 (iohexol) IV ORAL CONTRAST: No oral contrast ingested. RADIATION DOSE: 6.43 CTDIvol (mGy) MEDICAL HISTORY : Dehydration, Afib, sepsis SURGICAL HISTORY : None. ENCOUNTER: Initial ACUITY: 1 day PAIN SCALE: Non-responsive LOCATION: pelvis TECHNIQUE: Volumetric scanning of the abdomen and pelvis was performed. Using automated exposure control and ad justment of the mA and/or kV according to patient size, radiation dose was kept as low as reasonably achievable to obtain optimal diagnostic quality images. DICOM format image data is available electro nically for review and comparison. FINDINGS: Lung bases demonstrate small bilateral pleural effusions, basilar atelectasis and a small right pneum othorax. There is a right chest tube. It is unclear if it is in the pleural space because the upper c hest was not imaged. There is subcutaneous air the right chest wall. No acute findings in the liver, spleen, adrenals, kidneys, except for small renal cyst. Pancreatic he ad contains calcifications most characteristic of chronic pancreatitis. Findings stable.. There is mi ld anasarca. There is a 7 cm mass in the bladder on the right side which was seen on a prior exam fro m April 24. No acute bony abnormalities. Screw fixation left femur. CONCLUSION: 1. Distended bladder with large right-sided bladder mass measuring up to 7 cm in maximal diameter. Di ameter slightly increased from April 24. No hydronephrosis. 2. Small bilateral pleural effusions with right pneumothorax. See chest CT report. 3. Mild anasarca. Previous cholecystectomy. Mild constipation. Mild ileus. No bowel obstruction or fr ee intraperitoneal air noted. Subcutaneous air in the right abdominal wall. 4. Calcifications in the pancreatic head most characteristic of chronic pancreatitis. Maciel Bird MD on July 13, 2017 at 18:46 Board Certified Radiologist. This report was verified electronically.
[2017-07-13] MEDS: BUDESONIDE-FORMOTEROL 160/4.5 MCG INHALER INH SCH (20:45)
[2017-07-14] VITALS (30 sets, daily range): BP systolic 122–141; BP diastolic 59–78; PULSE 53–100; RESP 12–32; TEMP 97.7–98.6; O2SAT 72–100
[2017-07-14] MEDS: INSULIN ASPART SUPPLEMENTAL SCALE SQ SCH ×5 (04:00→20:00)
[2017-07-14] MEDS: CHLORHEXIDINE GLUCONATE 2 % 1 PACK (2 CLOTHS) TOP SCH (04:00)
[2017-07-14] MEDS: methylPREDNISolone SOD SUCC 40 MG/1 ML VIAL IV PUSH SCH ×2 (06:54→20:09)
[2017-07-14] MEDS: CHLORHEXIDINE 0.12% (ORAL KIT) 15 ML CUP MT SCH ×2 (08:00→20:00)
[2017-07-14] MEDS: RESP: ALBUTEROL 2.5 MG/IPRATROPIUM 0.5 MG NEB (SCH) NEB ×3 (08:03→20:23)
[2017-07-14] MEDS: SODIUM CHLORIDE 0.9% FLUSH 10 ML FLUSH IV FLUSH SCH ×2 (08:57→20:08)
[2017-07-14] MEDS: DILTIAZEM HCL 30 MG TAB PO SCH ×4 (08:58→20:09)
[2017-07-14] MEDS: PANTOPRAZOLE SOD 40 MG DELAYED RELEASE TAB PO SCH ×2 (08:58→20:09)
[2017-07-14] MEDS: ZIPRASIDONE HCL 60 MG CAP PO SCH ×2 (08:58→20:09)
[2017-07-14] MEDS: ASPIRIN 325 MG TAB PO SCH (08:58)
[2017-07-14] MEDS: HALOPERIDOL LACTATE ORAL CONC 10 MG/5 ML CUP PO SCH ×2 (08:58→20:10)
[2017-07-14] MEDS: BENZTROPINE MESYLATE 2 MG TAB PO SCH (08:58)
[2017-07-14] MEDS: BUDESONIDE-FORMOTEROL 160/4.5 MCG INHALER INH SCH ×2 (08:59→20:08)
[2017-07-14] MEDS: TIOTROPIUM BROMIDE 18 MCG INH INH SCH (09:00)
[2017-07-14] MEDS: ENOXAPARIN SODIUM 30 MG/0.3 ML SYRINGE SQ SCH (12:00)
--- NOTE | 2017-07-14 18:37 | HHI.PR ---
Subjective Remarks Confused and agitated. On O2 2 L. Has a Bladder tumor and needs further surgery. Chest tube is not draining or having air leak. Objective Vital Signs Date Time Temp Pulse Resp B/P (MAP) Pulse Ox O2 Delivery O2 Flow Rate FiO2 07/14/17 14:00 73 07/14/17 12:12 98.0 85 18 122/64 (83) 07/14/17 12:00 78 16 123/59 (80) 07/14/17 12:00 77 07/14/17 08:05 96 21 07/14/17 08:00 60 07/14/17 08:00 98.4 60 20 127/60 (82) 07/14/17 06:00 69 07/14/17 04:15 63 18 07/14/17 04:00 58 07/14/17 04:00 97.9 07/14/17 04:00 58 19 138/78 (98) 07/14/17 03:45 73 26 07/14/17 03:30 77 32 83 07/14/17 03:15 63 22 83 07/14/17 03:00 62 16 141/72 (95) 72 07/14/17 02:45 66 17 07/14/17 02:30 59 31 07/14/17 02:15 64 15 96 07/14/17 02:00 57 07/14/17 02:00 57 17 126/68 (87) 96 07/14/17 01:45 56 24 96 07/14/17 01:30 65 22 96 07/14/17 01:15 63 21 96 07/14/17 01:00 53 12 132/68 (89) 07/14/17 00:45 54 13 07/14/17 00:30 61 21 07/14/17 00:15 57 21 07/14/17 00:04 66 23 133/62 (85) 07/14/17 00:00 66 18 07/14/17 00:00 97.7 20 07/14/17 00:00 66 07/13/17 23:45 71 40 07/13/17 23:30 69 28 07/13/17 23:15 69 28 07/13/17 23:01 73 27 125/61 (82) 87 07/13/17 23:00 71 24 83 07/13/17 22:45 67 18 07/13/17 22:30 77 31 07/13/17 22:15 78 25 07/13/17 22:01 74 17 132/60 (84) 07/13/17 22:00 77 07/13/17 22:00 77 38 07/13/17 21:45 63 16 97 07/13/17 21:30 61 14 98 07/13/17 21:15 66 23 98 07/13/17 21:00 63 21 124/67 (86) 98 07/13/17 20:45 59 17 98 07/13/17 20:30 61 16 98 07/13/17 20:15 66 29 98 07/13/17 20:00 97.9 62 20 114/64 (81) 97 07/13/17 20:00 62 15 114/64 (81) 97 07/13/17 20:00 62 07/13/17 19:45 62 19 97 07/13/17 19:30 63 25 98 07/13/17 19:15 62 21 98 I/O 07/13/17 07/13/17 07/13/17 07/14/17 07/14/17 07/14/17 07:00 15:00 23:00 07:00 15:00 23:00 Intake Total 1280 ml 1500 ml 1400 ml Output Total 1229 ml 1295 ml 2368 ml Balance 51 ml 205 ml -968 ml Intake Oral 480 ml 1500 ml 1400 ml IV Total 800 ml Output Urine Total 1225 ml 1200 ml 2250 ml Chest Tube Drainage Total 4 ml 95 ml 118 ml Result Diagram: 07/13/1790807/13/17908 Objective Remarks This averagely built middle-aged man is alert and anxious. HEENT: Head normocephalic. Pupils reactive. Tongue is moist. Throat is injected. Nasal mucosa is clear. NECK: Supple. No bruits or thyroid enlargement. CHEST: Distant breath sounds and wheezes were scattered in the upper lung khan.Occ Basal crackles HEART: The heart were irregular S1-S2. No murmur. ABDOMEN: Soft and protuberant. Mild epigastric tenderness. Bowel sounds are active. No organomegaly. EXTREMITIES: No edema. Peripheral pulses are well felt. The patient does move all of his extremities well with no gross motor deficits. NEUROLOGIC: Alert and confused. SKIN: No lesions are noted. Assessment and Plan Assessment and Plan IMPRESSION 1. Septic shock, resolved 2. Right pneumothorax 3. COPD 4. Hemoptysis 5. Chronic atrial fibrillation 6. Hyperlipidemia and hypertension 7. Paranoid schizophrenia 8. Bladder Cancer. Plan : 1. Continue Chest tube to suction. 2. Chest Xray in am. 3. Duonebs qid. 4. O2 2 L PRN. 5. Cont Antibiotics per Dr Rodrigues 6. CBC,BMP in am 7. Taper Solumedrol to 20 mg bid Ursula Reed MD Jul 14, 2017 18:37
[2017-07-14] MEDS: cefTRIAXone INJ 2,000 MG in SODIUM CHLORIDE 0.9% INJ 100 ML IV SCH (18:44)
--- NOTE | 2017-07-14 20:44 | HHI.CCPN ---
Subjective Remarks/Hospital Course All history is obtained from discussion with the ED physician and chart review as the patient is intubated and altered. Patient is a 66-year-old male senior living resident with past medical history with schizophrenia dementia with behavioral disturbances, COPD, type 2 diabetes, hypertension, dyslipidemia, chronic atrial fibrillation. He apparently developed altered mentation, decreased level of consciousness while at the breakfast table in his NH. He passed out while eating breakfast, had been having syncopal episodes recently. Initial blood pressure systolic was in the 50s and patient was aggressively resuscitated in the ED with a total of 3 L normal saline. Broad-spectrum antibiotics given with Zosyn. The patient appears to be septic with urinary source. He's been started on Levophed to keep map above 65. Abnormal labs include Lactic acid is 4.7, sodium of 148, bicarbonate 12.4, BUN 125/creatinine 6.39, blood glucose was 639. WBC count was 16,000. There is evidence of aspiration as per the intubation note from Dr. Cai I evaluated the patient in the ED. He is intubated sedated but withdrawals to pain on all 4 extremities. His remains hypotensive tachycardic with A. fib with RVR. Levophed is at 2 mcg/m. Additional 1 L fluid boluses ordered, patient will need central line placement and further resuscitation. Antibiotics were modified to vancomycin cefepime and Flagyl. Due to recent history of diarrhea, C. difficile had been ordered 07/07: Remains intubated sedated. Versed just held. On Cardizem infusion for A. fib with RVR. Remains on Levophed at 19 mcg/m. UO excellent 2.8L in 24 hours. Creat improving 2.7 today. 07/08: Remains intubated sedated Versed was restarted yesterday. There is expansion of right pneumothorax, chest tube patency checked. Will repeat chest x-ray. Creatinine now improved to 1.3 but encephalopathy persists. UO 1.3L. sodium is improved to 149, from 151 LATE NOTE ENTRY FOR 07/09/17: Patient was weaned and extubated but developed hematemesis. GI consulted for EGD today. Hemodynamically stable off pressors 07/10/17: Patient developed hematemesis yesterday and had EGD by Dr. Roberts. Showed Long segment Rodarte's. Overnight was left intubated, SBT and extubation today. 07/11/17: Overall doing better patient appears comfortable breathing comfortably. Chest x-ray shows decreasing pneumothorax. RN reports mild hemoptysis. Will consult pulmonology for COPD with hemoptysis 07/12: CXR today showing expanding R apical pneumo now 3.[address] chest yesterday shows 20 F chest in the lung fissure preventing lung reexpansion. New pigtail chest tube placed aimed at apex with resolution of apical pneumothorax. patient tolerated well. 07/13: Patient breathing comfortably, sitting up in bed. According to RN tries to get out of the bed. Chest x-ray today shows small apical pneumo, despite 2 chest tubes. Will assure patency of chest tubes 07/14: clinically improving. sitting in bed. slightly confused. tiny apical ptx on CXR. no complaints. ROS negative. Objective Vital Signs Date Time Temp Pulse Resp B/P (MAP) Pulse Ox O2 Delivery O2 Flow Rate FiO2 07/14/17 18:00 81 07/14/17 16:00 98.6 22 122/67 (85) 07/14/17 08:05 96 21 07/10/17 09:52 Nasal Cannula 3 Intake and Output 07/14/17 07/14/17 07/15/17 08:00 16:00 00:00 Intake Total 1400 ml 700 ml Output Total 2368 ml 1800 ml Balance -968 ml -1100 ml Result Diagram: 07/13/17 0909 07/13/17 0909 Imaging CXR no acute findings CT head negative for acute findings Objective Remarks GENERAL: Cachectic poorly kempt elderly male who is on NC, sitting up in bed SKIN: Pale and cool, dry HEAD: Atraumatic. Normocephalic. EYES: Pupils equal and round, reactive. ENT: Mucous membranes dry. Edentulous. NECK: Trachea midline. No JVD. Well-healed previous trach incision CARDIOVASCULAR: Atrial fibrillation rate controlled. RESPIRATORY: Well-healed left thoracotomy scar. Right chest tubes x2 in place both to -40CM no air leak. GASTROINTESTINAL: Abdomen soft, non-distended. Well-healed vertical abdominal scar MUSCULOSKELETAL: No obvious deformities. Erythema over bilateral knee NEUROLOGICAL: Alert awake, follows commands. No focal deficits A/P Assessment and Plan NEURO: Acute metabolic encephalopathy-resolved History of schizophrenia - Mental status change most likely secondary to metabolic encephalopathy resolved - CT of the head negative for acute findings - Continue Geodon and benztropine. resumed Haldol 07/11/17 RESP: Acute respiratory failure -resolved COPD with exacerbation Right-sided pneumothorax, persistent Hemoptysis - Tolerated SBT and extubated 07/09, reintubated in the OR for EGD. Extubated again 07/10/17 - DuoNeb every 6 hours and when necessary. IV Solu-Medrol 40 q8 - Continue Symbicort, Spiriva. Pulmonology Dr. Hargrove for hemoptysis. CT thorax -no mass - CXR 07/12 expanding right apical pneumothorax- new 10F pigtail placed with resolution of pneumothorax (20 F chest tube is sitting in lung fissure and for this reason not expanding lung) - pulmonary following. tiny apical ptx. will repeat CXR tomorrow. - Sputum culture-MSSA CV: Septic shock - resolved. A. fib with RVR - rate controlled. - s/p Normal saline IV fluids 4L bolus on admission. Off all IVF - Continue PO cardizem - Remains off pressors - 2d echo EF 55-60%. Continue aspirin - Not a candidate for long-term anticoagulation, continue Aspirin GI: Long segment Rodarte's Esophagus Hematemesis- resolved. - Diet per GI. IV Protonix - Advance diet per GI /Heme: Acute kidney failure - improving. Urothelial cancer - Acute kidney failure is most likely from severe dehydration, creat improved - IV to KVO Monitor renal function closely. No Avery indicated - Nephrology following - Further recommendations regarding urothelial cancer by oncology and urology ID: Septic shock -resolved UTI MSSA pneumonia - Currently on Ceftriaxone. Off vanc Flagyl and cefepime HEME: - Monitor CBC, CMP, coags ENDO: Hyperglycemia, type 2 diabetes - Sliding-scale with NovoLog PROPH: Bilateral lower extremity SCDs. resumed lovenox 07/13. IV Protonix LINES: - Utilize peripheral IVs, central line if needed transfer to hospitalist services. can likely leave ICU tomorrow if remains stable. Som White MD Jul 14, 2017 20:44
[2017-07-14] MEDS ORDERED: methylPREDNISolone SOD SUCC 40 MG/1 ML VIAL IV PUSH SCH (21:00)
[2017-07-15] VITALS (13 sets, daily range): BP systolic 112–147; BP diastolic 65–78; PULSE 66–100; RESP 16–28; TEMP 98.3–98.8; O2SAT 94–97
[2017-07-15] MEDS: CHLORHEXIDINE GLUCONATE 2 % 1 PACK (2 CLOTHS) TOP SCH (03:59)
[2017-07-15] MEDS: INSULIN ASPART SUPPLEMENTAL SCALE SQ SCH ×6 (04:58→20:00)
--- NOTE | 2017-07-15 06:47 | RADRPT ---
EXAM DATE/TIME: 07/15/2017 04:23 [facility] COMPARISON: CHEST SINGLE AP, July 13, 2017, 3:45. INDICATIONS : Short of breath. MEDICAL HISTORY : Hypertension. Cardiovascular disease. SURGICAL HISTORY : Right side chest tube. ENCOUNTER: Subsequent ACUITY: 1 week PAIN SCORE: 0/10 LOCATION: Bilateral chest FINDINGS: A single view of the chest demonstrates right-sided chest tube with tiny right apical pneumothorax, s ignificantly decreased in size. A smaller caliber chest tube has been removed. Subcutaneous emphysema on the right. Deformity of the right humeral head. Scattered interstitial densities. Osseous struct ures are intact. CONCLUSION: 1. Right-sided chest tube tiny apical pneumothorax, significantly decreased in size. 2. Minimal scattered interstitial densities. Jacek Mcintyre MD on July 15, 2017 at 6:44 Board Certified Radiologist. This report was verified electronically.
[2017-07-15] MEDS: RESP: ALBUTEROL 2.5 MG/IPRATROPIUM 0.5 MG NEB (SCH) NEB ×2 (07:57→11:15)
[2017-07-15] MEDS: CHLORHEXIDINE 0.12% (ORAL KIT) 15 ML CUP MT SCH ×2 (08:00→20:00)
[2017-07-15] MEDS: BENZTROPINE MESYLATE 2 MG TAB PO SCH (09:00)
[2017-07-15] MEDS: DILTIAZEM HCL 30 MG TAB PO SCH ×5 (09:00→21:00)
[2017-07-15] MEDS: HALOPERIDOL LACTATE ORAL CONC 10 MG/5 ML CUP PO SCH ×3 (09:00→21:00)
[2017-07-15] MEDS: SODIUM CHLORIDE 0.9% FLUSH 10 ML FLUSH IV FLUSH SCH ×2 (09:00→20:40)
[2017-07-15] MEDS: ZIPRASIDONE HCL 60 MG CAP PO SCH ×3 (09:00→21:00)
[2017-07-15] MEDS: BUDESONIDE-FORMOTEROL 160/4.5 MCG INHALER INH SCH ×2 (09:00→20:39)
[2017-07-15] MEDS: PANTOPRAZOLE SOD 40 MG DELAYED RELEASE TAB PO SCH ×2 (09:00→20:41)
[2017-07-15] MEDS: ASPIRIN 325 MG TAB PO SCH (09:00)
[2017-07-15] MEDS: methylPREDNISolone SOD SUCC 40 MG/1 ML VIAL IV PUSH SCH (09:01)
[2017-07-15] MEDS: ENOXAPARIN SODIUM 30 MG/0.3 ML SYRINGE SQ SCH (12:00)
[2017-07-15] MEDS ORDERED: LORazepam 2 MG TAB PO PRN (12:15)
[2017-07-15] MEDS ORDERED: LORazepam 2 MG/ML VIAL IV PUSH PRN ×3 (12:15)
[2017-07-15] MEDS ORDERED: FLUMAZENIL 0.5 MG/5 ML VIAL IV PUSH PRN (12:15)
--- NOTE | 2017-07-15 12:25 | HHI.PR ---
Subjective Remarks Follow-up for multiple medical condition was assessment and plan Patient is intermittently confused but does follow commands. He is able to give me his name is location. Patient denies any shortness of breathing, chest pain, lightheadedness or dizziness or palpitation. He does not remember pulling out the chest tube last night. Discussed with patient's nurse who stated that patient pulled out chest tube last night and did well off the chest tube was told just to was told to be kept out. She stated that he gets confused so restrains are placed. Also asking for CIWA protocol because patient is agitated. Otherwise no other concerns. Objective Vitals Vital Signs Date Time Temp Pulse Resp B/P (MAP) Pulse Ox O2 Delivery O2 Flow Rate FiO2 07/15/17 12:00 98.3 100 16 130/70 (90) 96 07/15/17 12:00 75 07/15/17 10:00 75 07/15/17 08:00 75 07/15/17 08:00 98.3 72 16 147/78 (101) 96 07/15/17 07:58 97 21 07/15/17 07:58 98.3 72 16 147/78 (101) 96 07/15/17 06:00 75 07/15/17 04:00 67 07/15/17 04:00 98.3 67 16 140/67 (91) 97 07/15/17 02:00 66 07/15/17 00:00 98.4 66 28 132/65 (87) 97 07/15/17 00:00 66 07/14/17 22:00 76 07/14/17 20:25 100 21 07/14/17 20:00 98.1 73 28 139/77 (97) 98 07/14/17 20:00 73 07/14/17 18:00 81 07/14/17 16:00 98.6 100 22 122/67 (85) 07/14/17 14:00 73 I/O 07/14/17 07/14/17 07/14/17 07/15/17 07/15/17 07/15/17 07:00 15:00 23:00 07:00 15:00 23:00 Intake Total 1400 ml 800 ml 750 ml Output Total 2368 ml 1800 ml 3040 ml Balance -968 ml -1000 ml -2290 ml Intake Oral 1400 ml 700 ml 750 ml IV Total 100 ml Output Urine Total 2250 ml 1800 ml 3000 ml Chest Tube Drainage Total 118 ml 0 ml 40 ml # Bowel Movements 0 Result Diagram: 07/13/1790807/13/17908 Objective Remarks GENERAL: Cachectic poorly kempt elderly male who is on NC, laying in bed with restraints secondary to confusion. NECK: Trachea midline. No JVD. Well-healed previous trach incision CARDIOVASCULAR: Atrial fibrillation rate controlled. RESPIRATORY: Well-healed left thoracotomy scar. Right chest tubes x1 in place no air leak. GASTROINTESTINAL: Abdomen soft, non-distended. Well-healed vertical abdominal scar MUSCULOSKELETAL: No obvious deformities. Erythema over bilateral knee NEUROLOGICAL: Alert awake, follows commands. No focal deficits. Intermittently confused. Medications and IVs Current Medications Norepinephrine Bitartrate (Levophed Inj) 4 mg STK-MED ONCE .ROUTE ; Start 07/06 at 09:32; Stop 07/06/17 at 09:33; Status DC Sodium Chloride 1,000 ml @ 1,000 mls/hr Q1H ONCE IV Last administered on 07/06 11:03; Start 07/06/17 at 09:37; Stop 07/06/17 at 10:36; Status DC Sodium Chloride 1,000 ml @ 1,000 mls/hr Q1H ONCE IV Last administered on 07/06 11:04; Start 07/06/17 at 09:37; Stop 07/06/17 at 10:36; Status DC Sodium Chloride 400 ml @ 1,000 mls/hr Q24M ONCE IV Last administered on 11:21; Start 07/06/17 at 09:37; Stop 07/06/17 at 10:00; Status DC Norepinephrine Bitartrate 250 ml @ 7.5 mls/hr TITRATE PRN IV Maintain MAP > 65 Last administered on 07/06/17 11:05; Start 07/06/17 at 09:45; Stop at 14:40; Status DC Vasopressin 40 units/Dextrose 100 ml @ 6 mls/hr [id number] IV ; Start 07/06/17 at 09:37; Stop 07/06/17 at 21:59; Status DC Epinephrine HCl 2 mg/Dextrose 250 ml @ 22.5 mls/hr TITRATE PRN IV Maintain MAP > 65 mmHg; Start 07/06/17 at 09:45; Stop 07/07/17 at 12:00; Status DC Midazolam HCl 100 ml @ As Directed STK-MED ONCE .ROUTE ; Start 07/06/17 at 09: 53; Stop 07/06/17 at 09:54; Status DC Etomidate (Amidate Inj) 20 mg STK-MED ONCE .ROUTE ; Start 07/06/17 at 09:53; Stop 07/06/17 at 09:54; Status DC Succinylcholine Chloride (Quelicin Inj) 200 mg STK-MED ONCE .ROUTE ; Start at 09:53; Stop 07/06/17 at 09:54; Status DC Piperacillin Sod/ Tazobactam Sod 100 ml @ 200 mls/hr ONCE STAT IV Last administered on 07/06/17 11:22; Start 07/06/17 at 10:21; Stop 07/06/17 at 10 :50; Status DC Sodium Chloride 1,000 ml @ 150 mls/hr Q6H40M IV ; Start 07/06/17 at 11:00; Stop 07/06/17 at 12:13; Status DC Sodium Chloride (NS Flush) 2 ml UNSCH PRN IV FLUSH FLUSH AFTER USING IV ACCESS ; Start 07/06/17 at 10:30 Sodium Chloride (NS Flush) 2 ml BID IV FLUSH Last administered on 07/15/17 09 :00; Start 07/06/17 at 21:00 Albuterol/ Ipratropium (Duoneb Neb) 1 ampule Q6HR NEB NEB Last administered on 07/10/17 08:16; Start 07/06/17 at 10:30; Stop 07/10/17 at 10:29; Status DC Albuterol Sulfate (Albuterol Neb) 2.5 mg Q4HR NEB PRN INH SHORTNESS OF BREATH Last administered on 07/08/17 10:33; Start 07/06/17 at 12:00 Chlorhexidine Gluconate (Peridex 0.12% Liq) 15 ml BID@08,20 MT Last administered on 07/15/17 08:00; Start 07/06/17 at 20:00 Pantoprazole Sodium (Protonix Inj) 40 mg DAILY IV PUSH Last administered on 09:19; Start 07/06/17 at 11:00; Stop 07/10/17 at 12:45; Status DC Enoxaparin Sodium (Lovenox Inj) 30 mg Q24H SQ Last administered on 07/09/17 10:55; Start 07/06/17 at 11:30; Stop 07/13/17 at 15:48; Status DC Miscellaneous Information 1 [id number] XX ; Start 07/06/17 at 10:30 Chlorhexidine Gluconate (Chlorhexidine 2% Cloth) Taper DAILY@04 TOP Last administered on 07/14/17 04:00; Start 07/07/17 at 04:00; Stop 07/03/18 at 03 :59 Chlorhexidine Gluconate (Chlorhexidine 2% Cloth) 3 pack UNSCH PRN TOP HYGIENIC CARE; Start 07/06/17 at 10:30 Fentanyl Citrate 250 ml @ 5 mls/hr TITRATE PRN IV SEDATION; Start 07/06/17 at 11:30; Stop 07/08/17 at 08:21; Status DC Midazolam HCl 100 ml @ 2 mls/hr TITRATE PRN IV SEDATION Last administered on 18:06; Start 07/06/17 at 11:30; Stop 07/06/17 at 14:38; Status DC Metronidazole 100 ml @ 100 mls/hr Q8H IV Last administered on 07/13/17 12:23 ; Start 07/06/17 at 11:15; Stop 07/13/17 at 15:49; Status DC Cefepime HCl 1000 mg/Sodium Chloride 100 ml @ 200 mls/hr Q8H IV Last administered on 07/13/17 12:21; Start 07/06/17 at 11:30; Stop 07/13/17 at 15 :49; Status DC Pharmacy Profile Note 0 ml @ 0 mls/hr UNSCH OTHER ; Start 07/06/17 at 10:45; Status Cancel Etomidate (Amidate Inj) 20 mg ONCE ONCE IVP Last administered on 07/06/17 09 :55; Start 07/06/17 at 11:30; Stop 07/06/17 at 11:31; Status DC Succinylcholine Chloride (Quelicin Inj) 100 mg ONCE ONCE IV PUSH Last administered on 07/06/17 09:55; Start 07/06/17 at 11:30; Stop 07/06/17 at 11 :31; Status DC Midazolam HCl 100 ml @ 2 mls/hr TITRATE PRN IV SEDATION; Start 07/06/17 at 11: 30; Stop 07/06/17 at 14:39; Status DC Vancomycin HCl 1000 mg/Sodium Chloride 250 ml @ 250 mls/hr ONCE ONCE IV ; Start 07/06/17 at 13:00; Stop 07/06/17 at 13:59; Status DC Sodium Chloride 1,000 ml @ 999 mls/hr BOLUS ONCE IV ; Start 07/06/17 at 12:00 ; Stop 07/06/17 at 13:00; Status DC Sodium Chloride 1,000 ml @ 999 mls/hr BOLUS ONCE IV Last administered on 12:45; Start 07/06/17 at 12:15; Stop 07/06/17 at 13:15; Status DC Insulin Aspart (NovoLOG SUPPLEMENTAL SCALE) 1 Q4HR SQ Last administered on 12:00; Start 07/06/17 at 12:15 Sodium Bicarbonate 150 meq/Sterile Water 1,000 ml @ 150 mls/hr Q6H40M IV Last administered on 07/07/17 06:10; Start 07/06/17 at 13:00; Stop 07/07/17 at 09 :31; Status DC Sodium Bicarbonate (Sodium Bicarbonate 8.4% Inj) 100 meq ONCE ONCE IV PUSH ; Start 07/06/17 at 12:15; Stop 07/06/17 at 12:19; Status DC Methylprednisolone Sodium Succinate (SoluMEDROL INJ) 60 mg Q6HR IV PUSH Last administered on 07/08/17 03:45; Start 07/06/17 at 12:30; Stop 07/08/17 at 08 :21; Status DC Aspirin (Aspirin) 325 mg DAILY PO Last administered on 07/15/17 09:00; Start 07/07/17 at 09:00 Benztropine Mesylate (Cogentin) 2 mg DAILY PO Last administered on 07/15/17 09:00; Start 07/07/17 at 09:00 Ziprasidone (Geodon) 60 mg BID PO Last administered on 07/15/17 09:00; Start 07/06/17 at 21:00 Diltiazem HCl 125 mg/Sodium Chloride 125 ml @ 5 mls/hr TITRATE PRN IV Tachycardia Last administered on 07/07/17 06:11; Start 07/06/17 at 14:00; Stop 07/12/17 at 10:21; Status DC Norepinephrine Bitartrate 250 ml @ 37.5 mls/hr TITRATE PRN IV Maintain MAP > 65 mmHg Last administered on 07/07/17 18:31; Start 07/06/17 at 14:15; Stop 07/12/17 at 10:21; Status DC Midazolam HCl 100 ml @ 6 mls/hr TITRATE PRN IV SEDATION Last administered on 23:43; Start 07/06/17 at 14:15; Stop 07/08/17 at 08:21; Status DC Phenylephrine HCl 160 mg/Dextrose 500 ml @ 7.5 mls/hr TITRATE PRN IV Blood pressure management Last administered on 07/06/17 22:44; Start 07/06/17 at 22 :00; Stop 07/07/17 at 12:00; Status DC Terbutaline Sulfate (Brethine Inj) 1 mg UNSCH PRN SQ For Extravasation; Start 07/06/17 at 22:00 Vasopressin 40 units/Dextrose 100 ml @ 6 mls/hr [id number] IV ; Start 07/06/17 at 21:56; Stop 07/12/17 at 10:21; Status DC Vasopressin (Pitressin Inj) 20 units STK-MED ONCE .ROUTE ; Start 07/06/17 at 22 :02; Stop 07/06/17 at 22:03; Status DC Sodium Chloride 1,000 ml @ 75 mls/hr [id number] IV Last administered on 04:55; Start 07/07/17 at 09:45; Stop 07/08/17 at 10:38; Status DC Miscellaneous Information D/C ICU ELECTROLYTE ORDERS... UNSCH PRN .XX SEE DOSE INSTRUCTIONS; Start 07/08/17 at 05:45 Miscellaneous Information ICU - CALL ORDERING PHYSIC... UNSCH PRN .XX SEE DOSE INSTRUCTIONS; Start 07/08/17 at 05:45 Potassium Chloride 100 ml @ 25 mls/hr UNSCH PRN IV ELECTROLYTE REPLACEMENT; Start 07/08/17 at 05:45 Potassium Bicarb/ Potassium Chloride (K-Lyte Cl Eff) 50 meq UNSCH PRN PO ELECTROLYTE REPLACEMENT; Start 07/08/17 at 05:45 Potassium Chloride 100 ml @ 50 mls/hr UNSCH PRN IV ELECTROLYTE REPLACEMENT; Start 07/08/17 at 05:45 Magnesium Sulfate 4 gm/Sodium Chloride 108 ml @ 54 mls/hr UNSCH PRN IV ELECTROLYTE REPLACEMENT; Start 07/08/17 at 05:45 Magnesium Sulfate 2 gm/Sodium Chloride 104 ml @ 52 mls/hr UNSCH PRN IV ELECTROLYTE REPLACEMENT; Start 07/08/17 at 05:45 Magnesium Oxide (Mag-Ox) 800 mg UNSCH PRN PO ELECTROLYTE REPLACEMENT; Start at 05:45 Sodium Phosphate 30 mmol/Sodium Chloride 260 ml @ 43.333 mls/ hr UNSCH PRN IV ELECTROLYTE REPLACEMENT Last administered on 07/11/17 11:01; Start 07/08/17 at 05:45 Potassium Phosphate (K-Phos) 2,000 mg UNSCH PRN PO ELECTROLYTE REPLACEMENT; Start 07/08/17 at 05:45 Potassium Phosphate 30 mmol/ Sodium Chloride 260 ml @ 43.333 mls/ hr UNSCH PRN IV ELECTROLYTE REPLACEMENT Last administered on 07/08/17 06:23; Start at 05:45 Methylprednisolone Sodium Succinate (SoluMEDROL INJ) 40 mg Q8HR IV PUSH Last administered on 07/14/17 06:54; Start 07/08/17 at 14:00; Stop 07/14/17 at 12 :29; Status DC Vancomycin HCl 1250 mg/Sodium Chloride 262.5 ml @ 250 mls/hr ONCE ONCE IV ; Start 07/08/17 at 11:00; Stop 07/08/17 at 12:02; Status Cancel Potassium Chloride 20 meq/ Sodium Chloride 38.5 meq/Sterile Water 1,019.625 ml @ 100 mls/hr [id number] IV Last administered on 07/10/17 22:03; Start 07/08/17 at 13:00; Stop 07/11/17 at 09:20; Status DC Lidocaine HCl (Xylocaine 1% Inj (50 ml)) 50 ml STK-MED ONCE .ROUTE Last administered on 07/08/17 13:19; Start 07/08/17 at 13:19; Stop 07/08/17 at 13 :20; Status DC Pantoprazole Sodium 80 mg/ Sodium Chloride 100 ml @ 10 mls/hr Q10H IV Last administered on 07/10/17 12:26; Start 07/09/17 at 17:00; Stop 07/10/17 at 12 :09; Status DC Propofol 100 ml @ As Directed STK-MED ONCE .ROUTE ; Start 07/09/17 at 18:30; Stop 07/09/17 at 18:31; Status DC Miscellaneous Information ALL NURSING DEPARTME... UNSCH PRN .XX SEE LABEL COMMENTS; Start 07/09/17 at 19:30; Stop 07/10/17 at 19:29; Status DC Propofol 100 ml @ 1.755 mls/ hr TITRATE PRN IV Sedation Last administered on 07/10/17 05:05; Start 07/09/17 at 19:30; Stop 07/12/17 at 10:21; Status DC Pantoprazole Sodium (Protonix) 40 mg Q12HR PO Last administered on 07/15/17 09:00; Start 07/10/17 at 21:00 Haloperidol Lactate (Haldol Lactate Liq) 12.5 mg BID PO Last administered on 09:00; Start 07/11/17 at 21:00 Diltiazem HCl (Cardizem) 30 mg QID PO Last administered on 07/15/17 12:09; Start 07/11/17 at 13:00 Budesonide/ Formoterol Fumarate (Symbicort 160-4.5 Inh) 1 puff Q12HR INH Last administered on 07/15/17 09:00; Start 07/11/17 at 09:45 Tiotropium Sparks (Spiriva Inh) 18 mcg DAILY INH Last administered on 09:00; Start 07/11/17 at 09:45; Stop 07/14/17 at 12:29; Status DC Albuterol/ Ipratropium (Duoneb Neb) 1 ampule QID NEB NEB Last administered on 07/15/17 11:15; Start 07/11/17 at 16:00 Phenylephrine HCl (Neosynephrine/ NS 1000 Mcg/10ml Syr) 2,000 mcg STK-MED ONCE IV ; Start 07/09/17 at 12:00; Stop 07/11/17 at 14:28; Status DC Ephedrine Sulfate (ePHEDrine/NS 25 MG/5 ML SYR) 25 mg STK-MED ONCE IV ; Start 07/09/17 at 12:00; Stop 07/11/17 at 14:28; Status DC Succinylcholine Chloride (Quelicin Inj) 100 mg STK-MED ONCE IV PUSH ; Start at 12:00; Stop 07/11/17 at 14:28; Status DC Dexamethasone Sodium Phosphate (Decadron Inj) 4 mg STK-MED ONCE IV ; Start at 12:00; Stop 07/11/17 at 14:28; Status DC Ondansetron HCl (Zofran Inj) 4 mg STK-MED ONCE IV ; Start 07/09/17 at 12:00; Stop 07/11/17 at 14:28; Status DC Propofol (Diprivan 200 Mg/20 ml Inj) 400 mg STK-MED ONCE IV ; Start 07/09/17 at 12:00; Stop 07/11/17 at 14:28; Status DC Sterile Water (Sterile Water For Injection) 20 ml STK-MED ONCE .XX ; Start at 12:00; Stop 07/11/17 at 14:28; Status DC Sodium Chloride (Sodium Chloride 0.9% Inj) 20 ml STK-MED ONCE IV ; Start at 12:00; Stop 07/11/17 at 14:28; Status DC Midazolam HCl (Versed Inj) 5 mg ONCE ONCE IV PUSH Last administered on 09:31; Start 07/12/17 at 10:00; Stop 07/12/17 at 10:01; Status DC Fentanyl Citrate (fentaNYL INJ) 100 mcg ONCE ONCE IV PUSH Last administered on 07/12/17 09:31; Start 07/12/17 at 10:00; Stop 07/12/17 at 10:01; Status DC Enoxaparin Sodium (Lovenox Inj) 40 mg Q24H SQ Last administered on 07/15/17 12:00; Start 07/14/17 at 12:00 Ceftriaxone Sodium 2000 mg/ Sodium Chloride 100 ml @ 200 mls/hr Q24H IV Last administered on 07/14/17 18:44; Start 07/13/17 at 16:00 Iohexol (Omnipaque 350 Inj) 78 ml STK-MED ONCE IVCONTRAST Last administered on 07/13/17 18:20; Start 07/13/17 at 18:20; Stop 07/13/17 at 18:21; Status DC Methylprednisolone Sodium Succinate (SoluMEDROL INJ) 40 mg BID IV PUSH ; Start 07/14/17 at 21:00; Stop 07/14/17 at 21:00; Status DC Methylprednisolone Sodium Succinate (SoluMEDROL INJ) 20 mg BID IV PUSH Last administered on 07/15/17 09:01; Start 07/14/17 at 21:00; Stop 07/15/17 at 12 :59; Status DC Folic Acid (Folate) 1 mg DAILY PO ; Start 07/16/17 at 09:00; Stop 07/21/17 at 08:59 Thiamine HCl (Vitamin B1) 100 mg DAILY PO ; Start 07/16/17 at 09:00 Multivitamins/ Minerals Therapeutic (Theragran M Tab) 1 tab DAILY PO ; Start at 09:00; Stop 07/21/17 at 08:59 Flumazenil (Romazicon Inj) 0.2 mg Q1M PRN IV PUSH SEE LABEL COMMENTS; Start at 12:15 Lorazepam (Ativan) 1 mg Q4H PRN PO CIWA 8 - 10; Start 07/15/17 at 12:15 Lorazepam (Ativan Inj) 1 mg Q4H PRN IV PUSH CIWA 8 - 10; Start 07/15/17 at 12: 15 Lorazepam (Ativan) 2 mg Q2H PRN PO CIWA 11-14; Start 07/15/17 at 12:15 Lorazepam (Ativan Inj) 2 mg Q2H PRN IV PUSH CIWA 11-14 Last administered on 12:52; Start 07/15/17 at 12:15 Lorazepam (Ativan Inj) 2 mg Q1H PRN IV PUSH CIWA 15-20; Start 07/15/17 at 12: 15 Lorazepam (Ativan Inj) 2 mg Q15M PRN IV PUSH CIWA > 20; Start 07/15/17 at 12: 15 Prednisone (Deltasone) 10 mg BID PO ; Start 07/15/17 at 21:00 A/P Problem List: (1) Septic shock ICD Code: A41.9 - Sepsis, unspecified organism; R65.21 - Severe sepsis with septic shock (2) Acute metabolic encephalopathy ICD Code: G93.41 - Metabolic encephalopathy (3) Acute kidney failure ICD Code: N17.9 - Acute kidney failure, unspecified (4) Severe dehydration ICD Code: E86.0 - Dehydration (5) Lactic acidemia ICD Code: E87.2 - Acidosis (6) Metabolic acidemia ICD Code: E87.2 - Acidosis (7) Atrial fibrillation with rapid ventricular response ICD Code: I48.91 - Unspecified atrial fibrillation (8) UTI (urinary tract infection) ICD Code: N39.0 - Urinary tract infection, site not specified Status: Acute (9) Hyperglycemia ICD Code: R73.9 - Hyperglycemia, unspecified (10) Schizophrenia ICD Code: F20.9 - Schizophrenia, unspecified Status: Acute (11) COPD (chronic obstructive pulmonary disease) ICD Code: J44.9 - Chronic obstructive pulmonary disease Status: Chronic (12) A-fib ICD Code: I48.91 - Atrial fibrillation Status: Chronic (13) DM (diabetes mellitus) ICD Code: E11.9 - Diabetes mellitus Status: Chronic Assessment and Plan This is a 66-year-old male presented from the halfway with altered mental status found to be septic Acute metabolic encephalopathy -Most likely secondary to metabolic encephalopathy. Patient continues to be intermittently confused but it has not worsened. Per nurse in terms of his mental status has been the same. - CT of the head negative for acute findings Acute respiratory failure/COPD with exacerbation /Right-sided pneumothorax, persistent/hemoptysis - Status post extubated twice. CT scan of chest shows no mass. -Travel Sales Consultant consulted and following. - DuoNeb every 6 hours and when necessary. Per agricultural equipment sales manager segmental is being discontinued. - Continue Symbicort, Spiriva - CXR 07/12 expanding right apical pneumothorax- new 10F pigtail place -Patient one of the chest tube out and chest x-ray repeated showed a small apical pneumothorax. -Being managed by agricultural equipment sales manager. - Sputum culture-MSSA. Patient on Rocephin. We'll transition to oral antibiotics. Septic shock - resolved. -Secondary to UTI MSSA pneumonia -Status post pressors. Now off of pressors. - s/p Normal saline IV fluids 4L bolus on admission. Off all IVF - Remains off pressors - 2d echo EF 55-60%. Continue aspirin. -On Rocephin. Status post vancomycin, cefepime and Flagyl. A. fib with RVR - rate controlled. -On Cardizem. -Not a candidate for long-term anticoagulation, continue Aspirin Long segment Rodarte's Esophagus Hematemesis- resolved. - Diet per GI. IV Protonix - Advance diet per GI. GI signed off. Acute kidney failure - improving. - Acute kidney failure is most likely from severe dehydration, creat improved - IV to KVO Monitor renal function closely. No Avery indicated - Nephrology following Urothelial cancer - Further recommendations regarding urothelial cancer by oncology and urology Hyperglycemia, type 2 diabetes - Sliding-scale with NovoLog .History of schizophrenia - Continue Geodon and benztropine. resumed Haldol 07/11/17 PROPH: Bilateral lower extremity SCDs. resumed lovenox 07/13. IV Protonix LINES: - Utilize peripheral IVs, central line if needed Patient continues to be intimately confused and requires restraints due to pulling out chest tube which can cause harm to himself. Will need to continue restraint for confusion since patient is at risk for danger himself and others. Problem Qualifiers (1) Acute kidney failure: Qualified Codes: N17.9 - Acute kidney failure, unspecified (2) DM (diabetes mellitus): Melissa Buenrostro MD Jul 15, 2017 12:25
[2017-07-15] MEDS: LORazepam 2 MG/ML VIAL IV PUSH PRN ×2 (12:52→15:29)
--- NOTE | 2017-07-15 12:57 | HHI.PR ---
Subjective Remarks Confused and cooperative. On O2 2 L.Pulled out one chest tube No pain.Chest tube is not draining or having air leak. Objective Vital Signs Date Time Temp Pulse Resp B/P (MAP) Pulse Ox O2 Delivery O2 Flow Rate FiO2 07/15/17 12:00 98.3 100 16 130/70 (90) 96 07/15/17 12:00 75 07/15/17 10:00 75 07/15/17 08:00 75 07/15/17 08:00 98.3 72 16 147/78 (101) 96 07/15/17 07:58 97 21 07/15/17 07:58 98.3 72 16 147/78 (101) 96 07/15/17 06:00 75 07/15/17 04:00 67 07/15/17 04:00 98.3 67 16 140/67 (91) 97 07/15/17 02:00 66 07/15/17 00:00 98.4 66 28 132/65 (87) 97 07/15/17 00:00 66 07/14/17 22:00 76 07/14/17 20:25 100 21 07/14/17 20:00 98.1 73 28 139/77 (97) 98 07/14/17 20:00 73 07/14/17 18:00 81 07/14/17 16:00 98.6 100 22 122/67 (85) 07/14/17 14:00 73 I/O 07/14/17 07/14/17 07/14/17 07/15/17 07/15/17 07/15/17 07:00 15:00 23:00 07:00 15:00 23:00 Intake Total 1400 ml 800 ml 750 ml Output Total 2368 ml 1800 ml 3040 ml Balance -968 ml -1000 ml -2290 ml Intake Oral 1400 ml 700 ml 750 ml IV Total 100 ml Output Urine Total 2250 ml 1800 ml 3000 ml Chest Tube Drainage Total 118 ml 0 ml 40 ml # Bowel Movements 0 Result Diagram: 07/13/1790807/13/17908 Objective Remarks This averagely built middle-aged man is alert and anxious. HEENT: Head normocephalic. Pupils reactive. Tongue is moist. Throat is injected. Nasal mucosa is clear. NECK: Supple. No bruits or thyroid enlargement. CHEST: Distant breath sounds and wheezes were scattered in the upper lung khan.No crackles HEART: The heart were irregular S1-S2. No murmur. ABDOMEN: Soft and protuberant. Mild epigastric tenderness. Bowel sounds are active. No organomegaly. EXTREMITIES: No edema. Peripheral pulses are well felt. The patient does move all of his extremities well with no gross motor deficits. NEUROLOGIC: Alert and confused. SKIN: No lesions are noted. Assessment and Plan Assessment and Plan IMPRESSION 1. Septic shock, resolved 2. Right pneumothorax 3. COPD 4. Hemoptysis 5. Chronic atrial fibrillation 6. Hyperlipidemia and hypertension 7. Paranoid schizophrenia 8. Bladder Cancer. Plan : 1. Continue Chest tube to suction. 2. Chest Xray in am. 3. Duonebs qid. 4. O2 2 L PRN. 5. Cont Antibiotics and switch to PO. 6. CBC, in am 7. D/C Solumedrol . Ursula Reed MD Jul 15, 2017 12:57
[2017-07-15] MEDS: predniSONE 10 MG TAB PO SCH ×2 (20:40→21:00)
[2017-07-15] MEDS: AMOXICILLIN/CLAVULANATE K 875 MG TAB PO SCH ×2 (21:00→21:11)
[2017-07-16] VITALS (30 sets, daily range): BP systolic 115–158; BP diastolic 62–106; PULSE 82–118; RESP 19–40; TEMP 97.8–99.3; O2SAT 81–99
[2017-07-16] MEDS: CHLORHEXIDINE GLUCONATE 2 % 1 PACK (2 CLOTHS) TOP SCH (00:06)
[2017-07-16] MEDS: INSULIN ASPART SUPPLEMENTAL SCALE SQ SCH ×6 (04:00→20:00)
--- NOTE | 2017-07-16 05:18 | RADRPT ---
EXAM DATE/TIME: 07/16/2017 04:09 [facility] COMPARISON: CHEST SINGLE AP, July 15, 2017, 4:23. INDICATIONS : Short of breath. MEDICAL HISTORY : Hypertension. Cardiovascular disease. SURGICAL HISTORY : Right side chest tube. ENCOUNTER: Subsequent ACUITY: 2 weeks PAIN SCORE: 0/10 LOCATION: Bilateral chest FINDINGS: A single view of the chest demonstrates scattered interstitial densities. Heart normal in size. Right -sided chest tube. Small right apical pneumothorax. Subcutaneous emphysema on the right. Humeral head fracture, old. The cardiomediastinal contours are unremarkable. CONCLUSION: Unchanged small right apical pneumothorax. Jacek Mcintyre MD on July 16, 2017 at 5:15 Board Certified Radiologist. This report was verified electronically.
[2017-07-16 05:40] LABS: HEMATOCRIT 29.2 % (39.0-51.0); MEAN CELL VOLUME 90.5 FL (80.0-100.0); MEAN CORPUSCULAR HEMOGLOBIN 31.7 PG (27.0-34.0); PLATELET COUNT 211 TH/MM3 (150-450); RED BLOOD COUNT 3.23 MIL/MM3 (4.50-5.90); RED CELL DISTRIBUTION WIDTH 13.6 % (11.6-17.2); REVIEW FLAG FINAL
[2017-07-16 06:11] LABS: BICARBONATE 28.2 MEQ/L (21.0-32.0)
[2017-07-16] MEDS: CHLORHEXIDINE 0.12% (ORAL KIT) 15 ML CUP MT SCH ×2 (08:00→20:00)
[2017-07-16] MEDS: PANTOPRAZOLE SOD 40 MG DELAYED RELEASE TAB PO SCH ×2 (08:06→20:38)
[2017-07-16] MEDS: MULTIVITAMINS/MINERALS THERAPEUTIC TAB PO SCH (08:06)
[2017-07-16] MEDS: AMOXICILLIN/CLAVULANATE K 875 MG TAB PO SCH ×2 (08:06→20:39)
[2017-07-16] MEDS: ZIPRASIDONE HCL 60 MG CAP PO SCH ×2 (08:07→20:42)
[2017-07-16] MEDS: BENZTROPINE MESYLATE 2 MG TAB PO SCH (08:07)
[2017-07-16] MEDS: ASPIRIN 325 MG TAB PO SCH (08:07)
[2017-07-16] MEDS: THIAMINE HCL 100 MG TAB PO SCH (08:07)
[2017-07-16] MEDS: DILTIAZEM HCL 30 MG TAB PO SCH ×4 (08:07→20:38)
[2017-07-16] MEDS: predniSONE 10 MG TAB PO SCH ×2 (08:07→20:38)
[2017-07-16] MEDS: FOLIC ACID 1 MG TAB PO SCH (08:07)
[2017-07-16] MEDS: BUDESONIDE-FORMOTEROL 160/4.5 MCG INHALER INH SCH ×2 (08:08→20:40)
[2017-07-16] MEDS: HALOPERIDOL LACTATE ORAL CONC 10 MG/5 ML CUP PO SCH ×2 (08:08→20:38)
[2017-07-16] MEDS: SODIUM CHLORIDE 0.9% FLUSH 10 ML FLUSH IV FLUSH SCH ×2 (08:10→20:39)
--- NOTE | 2017-07-16 11:29 | HHI.PR ---
Subjective Remarks Follow-up for multiple medical conditions listen assessment and plan Patient is confused and does not answer any questions. He continues to be in restraints. Objective Vitals Vital Signs Date Time Temp Pulse Resp B/P (MAP) Pulse Ox O2 Delivery O2 Flow Rate FiO2 07/16/17 10:00 92 07/16/17 08:36 95 Nasal Cannula 2.00 07/16/17 08:00 98.6 95 22 121/70 (87) 96 07/16/17 08:00 95 07/16/17 06:00 89 07/16/17 04:00 92 07/16/17 04:00 99.3 92 24 135/76 (95) 92 07/16/17 02:00 96 07/16/17 00:13 94 Nasal Cannula 2.00 07/16/17 00:00 91 07/16/17 00:00 99.0 91 23 130/76 (94) 94 07/15/17 22:00 88 07/15/17 20:00 92 07/15/17 20:00 98.8 94 26 112/76 (88) 94 07/15/17 18:00 95 07/15/17 16:00 98.6 93 16 141/76 (97) 96 07/15/17 16:00 95 07/15/17 14:00 81 07/15/17 12:00 98.3 100 16 130/70 (90) 96 07/15/17 12:00 75 I/O 07/15/17 07/15/17 07/15/17 07/16/17 07/16/17 07/16/17 07:00 15:00 23:00 07:00 15:00 23:00 Intake Total 750 ml 320 ml 100 ml Output Total 3040 ml 1230 ml 1820 ml Balance -2290 ml -910 ml -1720 ml Intake Oral 750 ml 320 ml 100 ml Output Urine Total 3000 ml 1200 ml 1800 ml Chest Tube Drainage Total 40 ml 30 ml 20 ml # Bowel Movements 0 0 0 Result Diagram: 07/16/1744007/16/17440 Objective Remarks GENERAL: Cachectic poorly kempt elderly male who is on NC, laying in bed with restraints secondary to confusion. NECK: Trachea midline. No JVD. Well-healed previous trach incision CARDIOVASCULAR: Atrial fibrillation rate controlled. RESPIRATORY: Well-healed left thoracotomy scar. Right chest tubes x1 in place no air leak. GASTROINTESTINAL: Abdomen soft, non-distended. Well-healed vertical abdominal scar MUSCULOSKELETAL: No obvious deformities. Erythema over bilateral knee NEUROLOGICAL: Alert awake, follows commands. No focal deficits. Intermittently confused. A/P Problem List: (1) Septic shock ICD Code: A41.9 - Sepsis, unspecified organism; R65.21 - Severe sepsis with septic shock (2) Acute metabolic encephalopathy ICD Code: G93.41 - Metabolic encephalopathy (3) Acute kidney failure ICD Code: N17.9 - Acute kidney failure, unspecified (4) Severe dehydration ICD Code: E86.0 - Dehydration (5) Lactic acidemia ICD Code: E87.2 - Acidosis (6) Metabolic acidemia ICD Code: E87.2 - Acidosis (7) Atrial fibrillation with rapid ventricular response ICD Code: I48.91 - Unspecified atrial fibrillation (8) UTI (urinary tract infection) ICD Code: N39.0 - Urinary tract infection, site not specified Status: Acute (9) Hyperglycemia ICD Code: R73.9 - Hyperglycemia, unspecified (10) Schizophrenia ICD Code: F20.9 - Schizophrenia, unspecified Status: Acute (11) COPD (chronic obstructive pulmonary disease) ICD Code: J44.9 - Chronic obstructive pulmonary disease Status: Chronic (12) A-fib ICD Code: I48.91 - Atrial fibrillation Status: Chronic (13) DM (diabetes mellitus) ICD Code: E11.9 - Diabetes mellitus Status: Chronic Assessment and Plan This is a 66-year-old male presented from the [facility] with altered mental status found to be septic Acute metabolic encephalopathy -Most likely secondary to metabolic encephalopathy. Patient continues to be intermittently confused but it has not worsened. Per nurse in terms of his mental status has been the same. - CT of the head negative for acute findings Acute respiratory failure/COPD with exacerbation /Right-sided pneumothorax, persistent/hemoptysis - Status post extubated twice. CT scan of chest shows no mass. -Log Loader consulted and following. - DuoNeb every 6 hours and when necessary. Per wool and pelt grader segmental is being discontinued. - Continue Symbicort, Spiriva - CXR 07/12 expanding right apical pneumothorax- new 10F pigtail place -Patient one of the chest tube out and chest x-ray repeated showed a small apical pneumothorax. -Being managed by wool and pelt grader. - Sputum culture-MSSA. Patient on Rocephin. We'll transition to oral antibiotics. Septic shock - resolved. -Secondary to UTI MSSA pneumonia -Status post pressors. Now off of pressors. - s/p Normal saline IV fluids 4L bolus on admission. Off all IVF - Remains off pressors - 2d echo EF 55-60%. Continue aspirin. -On Rocephin. Status post vancomycin, cefepime and Flagyl. A. fib with RVR - rate controlled. -On Cardizem. -Not a candidate for long-term anticoagulation, continue Aspirin Long segment Rodarte's Esophagus Hematemesis- resolved. - Diet per GI. IV Protonix - Advance diet per GI. GI signed off. Acute kidney failure - improving. - Acute kidney failure is most likely from severe dehydration, creat improved - IV to KVO Monitor renal function closely. No Avery indicated - Nephrology following Urothelial cancer - Further recommendations regarding urothelial cancer by oncology and urology Hyperglycemia, type 2 diabetes - Sliding-scale with NovoLog .History of schizophrenia - Continue Geodon and benztropine. resumed Haldol 07/11/17 PROPH: Bilateral lower extremity SCDs. resumed lovenox 07/13. IV Protonix LINES: - Utilize peripheral IVs, central line if needed Patient continues to be intimately confused and requires restraints due to pulling out chest tube which can cause harm to himself. Will need to continue restraint for confusion since patient is at risk for danger himself and others. Problem Qualifiers (1) Acute kidney failure: Qualified Codes: N17.9 - Acute kidney failure, unspecified (2) DM (diabetes mellitus): Melissa Buenrostro MD Jul 16, 2017 11:29
[2017-07-16] MEDS: ENOXAPARIN SODIUM 30 MG/0.3 ML SYRINGE SQ SCH (12:06)
--- NOTE | 2017-07-16 12:36 | HHI.PR ---
Subjective Remarks Confused and cooperative. On O2 2 L Seems sleepy. Chest tube is not draining or having air leak. Objective Vital Signs Date Time Temp Pulse Resp B/P (MAP) Pulse Ox O2 Delivery O2 Flow Rate FiO2 07/16/17 10:00 92 07/16/17 08:36 95 Nasal Cannula 2.00 07/16/17 08:00 98.6 95 22 121/70 (87) 96 07/16/17 08:00 95 07/16/17 06:00 89 07/16/17 04:00 92 07/16/17 04:00 99.3 92 24 135/76 (95) 92 07/16/17 02:00 96 07/16/17 00:13 94 Nasal Cannula 2.00 07/16/17 00:00 91 07/16/17 00:00 99.0 91 23 130/76 (94) 94 07/15/17 22:00 88 07/15/17 20:00 92 07/15/17 20:00 98.8 94 26 112/76 (88) 94 07/15/17 18:00 95 07/15/17 16:00 98.6 93 16 141/76 (97) 96 07/15/17 16:00 95 07/15/17 14:00 81 I/O 07/15/17 07/15/17 07/15/17 07/16/17 07/16/17 07/16/17 07:00 15:00 23:00 07:00 15:00 23:00 Intake Total 750 ml 320 ml 100 ml Output Total 3040 ml 1230 ml 1820 ml Balance -2290 ml -910 ml -1720 ml Intake Oral 750 ml 320 ml 100 ml Output Urine Total 3000 ml 1200 ml 1800 ml Chest Tube Drainage Total 40 ml 30 ml 20 ml # Bowel Movements 0 0 0 Result Diagram: 07/16/1744007/16/17440 Objective Remarks This averagely built middle-aged man is alert and anxious. HEENT: Head normocephalic. Pupils reactive. Tongue is moist. Throat is clear. Nasal mucosa is clear. NECK: Supple. No bruits or thyroid enlargement. CHEST: Distant breath sounds and wheezes were scattered in the upper lung khan.Occ basal crackles HEART: The heart were irregular S1-S2. No murmur. ABDOMEN: Soft and protuberant. Mild epigastric tenderness. Bowel sounds are active. No organomegaly. EXTREMITIES: No edema. Peripheral pulses are well felt. The patient does move all of his extremities with no gross motor deficits. NEUROLOGIC: Alert and confused. SKIN: No lesions are noted. Assessment and Plan Assessment and Plan IMPRESSION 1. Septic shock, resolved 2. Right pneumothorax 3. COPD 4. Hemoptysis 5. Chronic atrial fibrillation 6. Hyperlipidemia and hypertension 7. Paranoid schizophrenia 8. Bladder Cancer. Plan : 1. Continue Chest tube to suction. 2. Chest Xray in am. with tube clamped. 3. Duonebs qid. 4. O2 2 L PRN. 5. Cont Antibiotics PO. 6. CBC, in am 7.PT evaluation Ursula Reed MD Jul 16, 2017 12:36
--- NOTE | 2017-07-16 16:31 | HHI.PR ---
Subjective Remarks Follow-up for altered mental status, sepsis, pneumonia, and pneumothorax Patient seemed to be sedated today. I spoke to patient's nurse and she stated that patient was given multiple doses of Ativan yesterday which made him very sedated. She stated that compared to yesterday his mental status has improved drastically. Patient would wake up when I give him some form of noxious stimuli but would not answer my questions like he did yesterday. There are no focal neurological deficit noted. He continues to be restraint due to confusion. Otherwise per nurse no other complaints. Objective Vitals Vital Signs Date Time Temp Pulse Resp B/P (MAP) Pulse Ox O2 Delivery O2 Flow Rate FiO2 07/16/17 12:00 92 07/16/17 12:00 98.0 92 24 146/81 (102) 99 07/16/17 10:00 92 07/16/17 08:36 95 Nasal Cannula 2.00 07/16/17 08:00 98.6 95 22 121/70 (87) 96 07/16/17 08:00 95 07/16/17 06:00 89 07/16/17 04:00 92 07/16/17 04:00 99.3 92 24 135/76 (95) 92 07/16/17 02:00 96 07/16/17 00:13 94 Nasal Cannula 2.00 07/16/17 00:00 91 07/16/17 00:00 99.0 91 23 130/76 (94) 94 07/15/17 22:00 88 07/15/17 20:00 92 07/15/17 20:00 98.8 94 26 112/76 (88) 94 07/15/17 18:00 95 I/O 07/15/17 07/15/17 07/15/17 07/16/17 07/16/17 07/16/17 07:00 15:00 23:00 07:00 15:00 23:00 Intake Total 750 ml 320 ml 100 ml Output Total 3040 ml 1230 ml 1820 ml Balance -2290 ml -910 ml -1720 ml Intake Oral 750 ml 320 ml 100 ml Output Urine Total 3000 ml 1200 ml 1800 ml Chest Tube Drainage Total 40 ml 30 ml 20 ml # Bowel Movements 0 0 0 Result Diagram: 07/16/1744007/16/17440 Objective Remarks GENERAL: Cachectic poorly kempt elderly male who is on NC, laying in bed with restraints secondary to confusion. NECK: Trachea midline. No JVD. Well-healed previous trach incision CARDIOVASCULAR: Atrial fibrillation rate controlled. RESPIRATORY: Well-healed left thoracotomy scar. Right chest tubes x1 in place no air leak. GASTROINTESTINAL: Abdomen soft, non-distended. Well-healed vertical abdominal scar MUSCULOSKELETAL: No obvious deformities. Erythema over bilateral knee NEUROLOGICAL: Much more sedated today. No focal deficits. Medications and IVs Current Medications Norepinephrine Bitartrate (Levophed Inj) 4 mg STK-MED ONCE .ROUTE ; Start 07/06 at 09:32; Stop 07/06/17 at 09:33; Status DC Sodium Chloride 1,000 ml @ 1,000 mls/hr Q1H ONCE IV Last administered on 07/06 11:03; Start 07/06/17 at 09:37; Stop 07/06/17 at 10:36; Status DC Sodium Chloride 1,000 ml @ 1,000 mls/hr Q1H ONCE IV Last administered on 07/06 11:04; Start 07/06/17 at 09:37; Stop 07/06/17 at 10:36; Status DC Sodium Chloride 400 ml @ 1,000 mls/hr Q24M ONCE IV Last administered on 11:21; Start 07/06/17 at 09:37; Stop 07/06/17 at 10:00; Status DC Norepinephrine Bitartrate 250 ml @ 7.5 mls/hr TITRATE PRN IV Maintain MAP > 65 Last administered on 07/06/17 11:05; Start 07/06/17 at 09:45; Stop at 14:40; Status DC Vasopressin 40 units/Dextrose 100 ml @ 6 mls/hr [id number] IV ; Start 07/06/17 at 09:37; Stop 07/06/17 at 21:59; Status DC Epinephrine HCl 2 mg/Dextrose 250 ml @ 22.5 mls/hr TITRATE PRN IV Maintain MAP > 65 mmHg; Start 07/06/17 at 09:45; Stop 07/07/17 at 12:00; Status DC Midazolam HCl 100 ml @ As Directed STK-MED ONCE .ROUTE ; Start 07/06/17 at 09: 53; Stop 07/06/17 at 09:54; Status DC Etomidate (Amidate Inj) 20 mg STK-MED ONCE .ROUTE ; Start 07/06/17 at 09:53; Stop 07/06/17 at 09:54; Status DC Succinylcholine Chloride (Quelicin Inj) 200 mg STK-MED ONCE .ROUTE ; Start at 09:53; Stop 07/06/17 at 09:54; Status DC Piperacillin Sod/ Tazobactam Sod 100 ml @ 200 mls/hr ONCE STAT IV Last administered on 07/06/17 11:22; Start 07/06/17 at 10:21; Stop 07/06/17 at 10 :50; Status DC Sodium Chloride 1,000 ml @ 150 mls/hr Q6H40M IV ; Start 07/06/17 at 11:00; Stop 07/06/17 at 12:13; Status DC Sodium Chloride (NS Flush) 2 ml UNSCH PRN IV FLUSH FLUSH AFTER USING IV ACCESS ; Start 07/06/17 at 10:30 Sodium Chloride (NS Flush) 2 ml BID IV FLUSH Last administered on 07/16/17 08 :10; Start 07/06/17 at 21:00 Albuterol/ Ipratropium (Duoneb Neb) 1 ampule Q6HR NEB NEB Last administered on 07/10/17 08:16; Start 07/06/17 at 10:30; Stop 07/10/17 at 10:29; Status DC Albuterol Sulfate (Albuterol Neb) 2.5 mg Q4HR NEB PRN INH SHORTNESS OF BREATH Last administered on 07/08/17 10:33; Start 07/06/17 at 12:00 Chlorhexidine Gluconate (Peridex 0.12% Liq) 15 ml BID@08,20 MT Last administered on 07/15/17 08:00; Start 07/06/17 at 20:00 Pantoprazole Sodium (Protonix Inj) 40 mg DAILY IV PUSH Last administered on 09:19; Start 07/06/17 at 11:00; Stop 07/10/17 at 12:45; Status DC Enoxaparin Sodium (Lovenox Inj) 30 mg Q24H SQ Last administered on 07/09/17 10:55; Start 07/06/17 at 11:30; Stop 07/13/17 at 15:48; Status DC Miscellaneous Information 1 [id number] XX ; Start 07/06/17 at 10:30 Chlorhexidine Gluconate (Chlorhexidine 2% Cloth) Taper DAILY@04 TOP Last administered on 07/14/17 04:00; Start 07/07/17 at 04:00; Stop 07/03/18 at 03 :59 Chlorhexidine Gluconate (Chlorhexidine 2% Cloth) 3 pack UNSCH PRN TOP HYGIENIC CARE; Start 07/06/17 at 10:30 Fentanyl Citrate 250 ml @ 5 mls/hr TITRATE PRN IV SEDATION; Start 07/06/17 at 11:30; Stop 07/08/17 at 08:21; Status DC Midazolam HCl 100 ml @ 2 mls/hr TITRATE PRN IV SEDATION Last administered on 18:06; Start 07/06/17 at 11:30; Stop 07/06/17 at 14:38; Status DC Metronidazole 100 ml @ 100 mls/hr Q8H IV Last administered on 07/13/17 12:23 ; Start 07/06/17 at 11:15; Stop 07/13/17 at 15:49; Status DC Cefepime HCl 1000 mg/Sodium Chloride 100 ml @ 200 mls/hr Q8H IV Last administered on 07/13/17 12:21; Start 07/06/17 at 11:30; Stop 07/13/17 at 15 :49; Status DC Pharmacy Profile Note 0 ml @ 0 mls/hr UNSCH OTHER ; Start 07/06/17 at 10:45; Status Cancel Etomidate (Amidate Inj) 20 mg ONCE ONCE IVP Last administered on 07/06/17 09 :55; Start 07/06/17 at 11:30; Stop 07/06/17 at 11:31; Status DC Succinylcholine Chloride (Quelicin Inj) 100 mg ONCE ONCE IV PUSH Last administered on 07/06/17 09:55; Start 07/06/17 at 11:30; Stop 07/06/17 at 11 :31; Status DC Midazolam HCl 100 ml @ 2 mls/hr TITRATE PRN IV SEDATION; Start 07/06/17 at 11: 30; Stop 07/06/17 at 14:39; Status DC Vancomycin HCl 1000 mg/Sodium Chloride 250 ml @ 250 mls/hr ONCE ONCE IV ; Start 07/06/17 at 13:00; Stop 07/06/17 at 13:59; Status DC Sodium Chloride 1,000 ml @ 999 mls/hr BOLUS ONCE IV ; Start 07/06/17 at 12:00 ; Stop 07/06/17 at 13:00; Status DC Sodium Chloride 1,000 ml @ 999 mls/hr BOLUS ONCE IV Last administered on 12:45; Start 07/06/17 at 12:15; Stop 07/06/17 at 13:15; Status DC Insulin Aspart (NovoLOG SUPPLEMENTAL SCALE) 1 Q4HR SQ Last administered on 16:00; Start 07/06/17 at 12:15 Sodium Bicarbonate 150 meq/Sterile Water 1,000 ml @ 150 mls/hr Q6H40M IV Last administered on 07/07/17 06:10; Start 07/06/17 at 13:00; Stop 07/07/17 at 09 :31; Status DC Sodium Bicarbonate (Sodium Bicarbonate 8.4% Inj) 100 meq ONCE ONCE IV PUSH ; Start 07/06/17 at 12:15; Stop 07/06/17 at 12:19; Status DC Methylprednisolone Sodium Succinate (SoluMEDROL INJ) 60 mg Q6HR IV PUSH Last administered on 07/08/17 03:45; Start 07/06/17 at 12:30; Stop 07/08/17 at 08 :21; Status DC Aspirin (Aspirin) 325 mg DAILY PO Last administered on 07/16/17 08:07; Start 07/07/17 at 09:00 Benztropine Mesylate (Cogentin) 2 mg DAILY PO Last administered on 07/16/17 08:07; Start 07/07/17 at 09:00 Ziprasidone (Geodon) 60 mg BID PO Last administered on 07/16/17 08:07; Start 07/06/17 at 21:00 Diltiazem HCl 125 mg/Sodium Chloride 125 ml @ 5 mls/hr TITRATE PRN IV Tachycardia Last administered on 07/07/17 06:11; Start 07/06/17 at 14:00; Stop 07/12/17 at 10:21; Status DC Norepinephrine Bitartrate 250 ml @ 37.5 mls/hr TITRATE PRN IV Maintain MAP > 65 mmHg Last administered on 07/07/17 18:31; Start 07/06/17 at 14:15; Stop 07/12/17 at 10:21; Status DC Midazolam HCl 100 ml @ 6 mls/hr TITRATE PRN IV SEDATION Last administered on 23:43; Start 07/06/17 at 14:15; Stop 07/08/17 at 08:21; Status DC Phenylephrine HCl 160 mg/Dextrose 500 ml @ 7.5 mls/hr TITRATE PRN IV Blood pressure management Last administered on 07/06/17 22:44; Start 07/06/17 at 22 :00; Stop 07/07/17 at 12:00; Status DC Terbutaline Sulfate (Brethine Inj) 1 mg UNSCH PRN SQ For Extravasation; Start 07/06/17 at 22:00 Vasopressin 40 units/Dextrose 100 ml @ 6 mls/hr [id number] IV ; Start 07/06/17 at 21:56; Stop 07/12/17 at 10:21; Status DC Vasopressin (Pitressin Inj) 20 units STK-MED ONCE .ROUTE ; Start 07/06/17 at 22 :02; Stop 07/06/17 at 22:03; Status DC Sodium Chloride 1,000 ml @ 75 mls/hr [id number] IV Last administered on 04:55; Start 07/07/17 at 09:45; Stop 07/08/17 at 10:38; Status DC Miscellaneous Information D/C ICU ELECTROLYTE ORDERS... UNSCH PRN .XX SEE DOSE INSTRUCTIONS; Start 07/08/17 at 05:45 Miscellaneous Information ICU - CALL ORDERING PHYSIC... UNSCH PRN .XX SEE DOSE INSTRUCTIONS; Start 07/08/17 at 05:45 Potassium Chloride 100 ml @ 25 mls/hr UNSCH PRN IV ELECTROLYTE REPLACEMENT; Start 07/08/17 at 05:45 Potassium Bicarb/ Potassium Chloride (K-Lyte Cl Eff) 50 meq UNSCH PRN PO ELECTROLYTE REPLACEMENT; Start 07/08/17 at 05:45 Potassium Chloride 100 ml @ 50 mls/hr UNSCH PRN IV ELECTROLYTE REPLACEMENT; Start 07/08/17 at 05:45 Magnesium Sulfate 4 gm/Sodium Chloride 108 ml @ 54 mls/hr UNSCH PRN IV ELECTROLYTE REPLACEMENT; Start 07/08/17 at 05:45 Magnesium Sulfate 2 gm/Sodium Chloride 104 ml @ 52 mls/hr UNSCH PRN IV ELECTROLYTE REPLACEMENT; Start 07/08/17 at 05:45 Magnesium Oxide (Mag-Ox) 800 mg UNSCH PRN PO ELECTROLYTE REPLACEMENT; Start at 05:45 Sodium Phosphate 30 mmol/Sodium Chloride 260 ml @ 43.333 mls/ hr UNSCH PRN IV ELECTROLYTE REPLACEMENT Last administered on 07/11/17 11:01; Start 07/08/17 at 05:45 Potassium Phosphate (K-Phos) 2,000 mg UNSCH PRN PO ELECTROLYTE REPLACEMENT; Start 07/08/17 at 05:45 Potassium Phosphate 30 mmol/ Sodium Chloride 260 ml @ 43.333 mls/ hr UNSCH PRN IV ELECTROLYTE REPLACEMENT Last administered on 07/08/17 06:23; Start at 05:45 Methylprednisolone Sodium Succinate (SoluMEDROL INJ) 40 mg Q8HR IV PUSH Last administered on 07/14/17 06:54; Start 07/08/17 at 14:00; Stop 07/14/17 at 12 :29; Status DC Vancomycin HCl 1250 mg/Sodium Chloride 262.5 ml @ 250 mls/hr ONCE ONCE IV ; Start 07/08/17 at 11:00; Stop 07/08/17 at 12:02; Status Cancel Potassium Chloride 20 meq/ Sodium Chloride 38.5 meq/Sterile Water 1,019.625 ml @ 100 mls/hr [id number] IV Last administered on 07/10/17 22:03; Start 07/08/17 at 13:00; Stop 07/11/17 at 09:20; Status DC Lidocaine HCl (Xylocaine 1% Inj (50 ml)) 50 ml STK-MED ONCE .ROUTE Last administered on 07/08/17 13:19; Start 07/08/17 at 13:19; Stop 07/08/17 at 13 :20; Status DC Pantoprazole Sodium 80 mg/ Sodium Chloride 100 ml @ 10 mls/hr Q10H IV Last administered on 07/10/17 12:26; Start 07/09/17 at 17:00; Stop 07/10/17 at 12 :09; Status DC Propofol 100 ml @ As Directed STK-MED ONCE .ROUTE ; Start 07/09/17 at 18:30; Stop 07/09/17 at 18:31; Status DC Miscellaneous Information ALL NURSING DEPARTME... UNSCH PRN .XX SEE LABEL COMMENTS; Start 07/09/17 at 19:30; Stop 07/10/17 at 19:29; Status DC Propofol 100 ml @ 1.755 mls/ hr TITRATE PRN IV Sedation Last administered on 07/10/17 05:05; Start 07/09/17 at 19:30; Stop 07/12/17 at 10:21; Status DC Pantoprazole Sodium (Protonix) 40 mg Q12HR PO Last administered on 07/16/17 08:06; Start 07/10/17 at 21:00 Haloperidol Lactate (Haldol Lactate Liq) 12.5 mg BID PO Last administered on 08:08; Start 07/11/17 at 21:00 Diltiazem HCl (Cardizem) 30 mg QID PO Last administered on 07/16/17 16:16; Start 07/11/17 at 13:00 Budesonide/ Formoterol Fumarate (Symbicort 160-4.5 Inh) 1 puff Q12HR INH Last administered on 07/15/17 20:39; Start 07/11/17 at 09:45 Tiotropium [place] (Spiriva Inh) 18 mcg DAILY INH Last administered on 09:00; Start 07/11/17 at 09:45; Stop 07/14/17 at 12:29; Status DC Albuterol/ Ipratropium (Duoneb Neb) 1 ampule QID NEB NEB Last administered on 07/15/17 11:15; Start 07/11/17 at 16:00; Stop 07/15/17 at 15:59; Status DC Phenylephrine HCl (Neosynephrine/ NS 1000 Mcg/10ml Syr) 2,000 mcg STK-MED ONCE IV ; Start 07/09/17 at 12:00; Stop 07/11/17 at 14:28; Status DC Ephedrine Sulfate (ePHEDrine/NS 25 MG/5 ML SYR) 25 mg STK-MED ONCE IV ; Start 07/09/17 at 12:00; Stop 07/11/17 at 14:28; Status DC Succinylcholine Chloride (Quelicin Inj) 100 mg STK-MED ONCE IV PUSH ; Start at 12:00; Stop 07/11/17 at 14:28; Status DC Dexamethasone Sodium Phosphate (Decadron Inj) 4 mg STK-MED ONCE IV ; Start at 12:00; Stop 07/11/17 at 14:28; Status DC Ondansetron HCl (Zofran Inj) 4 mg STK-MED ONCE IV ; Start 07/09/17 at 12:00; Stop 07/11/17 at 14:28; Status DC Propofol (Diprivan 200 Mg/20 ml Inj) 400 mg STK-MED ONCE IV ; Start 07/09/17 at 12:00; Stop 07/11/17 at 14:28; Status DC Sterile Water (Sterile Water For Injection) 20 ml STK-MED ONCE .XX ; Start at 12:00; Stop 07/11/17 at 14:28; Status DC Sodium Chloride (Sodium Chloride 0.9% Inj) 20 ml STK-MED ONCE IV ; Start at 12:00; Stop 07/11/17 at 14:28; Status DC Midazolam HCl (Versed Inj) 5 mg ONCE ONCE IV PUSH Last administered on 09:31; Start 07/12/17 at 10:00; Stop 07/12/17 at 10:01; Status DC Fentanyl Citrate (fentaNYL INJ) 100 mcg ONCE ONCE IV PUSH Last administered on 07/12/17 09:31; Start 07/12/17 at 10:00; Stop 07/12/17 at 10:01; Status DC Enoxaparin Sodium (Lovenox Inj) 40 mg Q24H SQ Last administered on 07/16/17 12:06; Start 07/14/17 at 12:00 Ceftriaxone Sodium 2000 mg/ Sodium Chloride 100 ml @ 200 mls/hr Q24H IV Last administered on 07/14/17 18:44; Start 07/13/17 at 16:00; Stop 07/15/17 at 14 :36; Status DC Iohexol (Omnipaque 350 Inj) 78 ml STK-MED ONCE IVCONTRAST Last administered on 07/13/17 18:20; Start 07/13/17 at 18:20; Stop 07/13/17 at 18:21; Status DC Methylprednisolone Sodium Succinate (SoluMEDROL INJ) 40 mg BID IV PUSH ; Start 07/14/17 at 21:00; Stop 07/14/17 at 21:00; Status DC Methylprednisolone Sodium Succinate (SoluMEDROL INJ) 20 mg BID IV PUSH Last administered on 07/15/17 09:01; Start 07/14/17 at 21:00; Stop 07/15/17 at 12 :59; Status DC Folic Acid (Folate) 1 mg DAILY PO Last administered on 07/16/17 08:07; Start 07/16/17 at 09:00; Stop 07/21/17 at 08:59 Thiamine HCl (Vitamin B1) 100 mg DAILY PO Last administered on 07/16/17 08:07 ; Start 07/16/17 at 09:00 Multivitamins/ Minerals Therapeutic (Theragran M Tab) 1 tab DAILY PO Last administered on 07/16/17 08:06; Start 07/16/17 at 09:00; Stop 07/21/17 at 08 :59 Flumazenil (Romazicon Inj) 0.2 mg Q1M PRN IV PUSH SEE LABEL COMMENTS; Start at 12:15 Lorazepam (Ativan) 1 mg Q4H PRN PO CIWA 8 - 10; Start 07/15/17 at 12:15 Lorazepam (Ativan Inj) 1 mg Q4H PRN IV PUSH CIWA 8 - 10; Start 07/15/17 at 12: 15 Lorazepam (Ativan) 2 mg Q2H PRN PO CIWA 11-14; Start 07/15/17 at 12:15 Lorazepam (Ativan Inj) 2 mg Q2H PRN IV PUSH CIWA 11-14 Last administered on 15:29; Start 07/15/17 at 12:15 Lorazepam (Ativan Inj) 2 mg Q1H PRN IV PUSH CIWA 15-20; Start 07/15/17 at 12: 15 Lorazepam (Ativan Inj) 2 mg Q15M PRN IV PUSH CIWA > 20; Start 07/15/17 at 12: 15 Prednisone (Deltasone) 10 mg BID PO Last administered on 07/16/17 08:07; Start 07/15/17 at 21:00 Amoxicillin/ Clavulanate Potassium (Augmentin) 875 mg Q12HR PO Last administered on 07/16/17t 08:06; Start 07/15/17 at 21:00 A/P Problem List: (1) Septic shock ICD Code: A41.9 - Sepsis, unspecified organism; R65.21 - Severe sepsis with septic shock (2) Acute metabolic encephalopathy ICD Code: G93.41 - Metabolic encephalopathy (3) Acute kidney failure ICD Code: N17.9 - Acute kidney failure, unspecified (4) Severe dehydration ICD Code: E86.0 - Dehydration (5) Lactic acidemia ICD Code: E87.2 - Acidosis (6) Metabolic acidemia ICD Code: E87.2 - Acidosis (7) Atrial fibrillation with rapid ventricular response ICD Code: I48.91 - Unspecified atrial fibrillation (8) UTI (urinary tract infection) ICD Code: N39.0 - Urinary tract infection, site not specified Status: Acute (9) Hyperglycemia ICD Code: R73.9 - Hyperglycemia, unspecified (10) Schizophrenia ICD Code: F20.9 - Schizophrenia, unspecified Status: Acute (11) COPD (chronic obstructive pulmonary disease) ICD Code: J44.9 - Chronic obstructive pulmonary disease Status: Chronic (12) A-fib ICD Code: I48.91 - Atrial fibrillation Status: Chronic (13) DM (diabetes mellitus) ICD Code: E11.9 - Diabetes mellitus Status: Chronic Assessment and Plan This is a 66-year-old male presented from the care home with altered mental status found to be septic Acute metabolic encephalopathy -Most likely secondary to metabolic encephalopathy. Patient continues to be intermittently confused and he was given Ativan yesterday with should made him more sedated. Currently mental status improving. Will continue to monitor clinically. - CT of the head negative for acute findings Acute respiratory failure/COPD with exacerbation /Right-sided pneumothorax, persistent/hemoptysis - Status post extubated twice. CT scan of chest shows no mass. -[facility] [employer] consulted and following. - DuoNeb every 6 hours and when necessary. Per primary therapist segmental is being discontinued. - Continue Symbicort, Spiriva - CXR 07/12 expanding right apical pneumothorax- new 10F pigtail place -Patient one of the chest tube out and chest x-ray repeated showed a small apical pneumothorax. -Being managed by primary therapist. - Sputum culture-MSSA. Status post Rocephin. Patient currently on Augmentin. Septic shock - resolved. -Secondary to UTI MSSA pneumonia -Status post pressors. Now off of pressors. - s/p Normal saline IV fluids 4L bolus on admission. Off all IVF - Remains off pressors - 2d echo EF 55-60%. Continue aspirin. -Status post Rocephin on 07/11 for now on Augmentin. Status post vancomycin, cefepime and Flagyl. A. fib with RVR - rate controlled. -On Cardizem. -Not a candidate for long-term anticoagulation, continue Aspirin Long segment Rodarte's Esophagus Hematemesis- resolved. - Diet per GI. IV Protonix - Advance diet per GI. GI signed off. Acute kidney failure - improving. - Acute kidney failure is most likely from severe dehydration, creat improved - IV to KVO Monitor renal function closely. No Avery indicated - Nephrology following Urothelial cancer - Further recommendations regarding urothelial cancer by oncology and urology Hyperglycemia, type 2 diabetes - Sliding-scale with NovoLog .History of schizophrenia - Continue Geodon and benztropine. resumed Haldol 07/11/17 PROPH: Bilateral lower extremity SCDs. resumed lovenox 07/13. IV Protonix LINES: - Utilize peripheral IVs, central line if needed Patient continues to be intimately confused and requires restraints due to pulling out chest tube which can cause harm to himself. Will need to continue restraint for confusion since patient is at risk for danger himself and others. Discussed with patient's nurse. Problem Qualifiers (1) Acute kidney failure: Qualified Codes: N17.9 - Acute kidney failure, unspecified (2) DM (diabetes mellitus): Melissa Buenrostro MD Jul 16, 2017 16:31
--- NOTE | 2017-07-16 18:58 | HHI.PR ---
Subjective Remarks Confused and cooperative. On O2 2 L Seems lethargic. Is on Ativan. Chest tube is not draining or having air leak.Still has a Small right Pneumothorax. Objective Vital Signs Date Time Temp Pulse Resp B/P (MAP) Pulse Ox O2 Delivery O2 Flow Rate FiO2 07/16/17 18:00 99 07/16/17 16:00 91 07/16/17 16:00 97.8 91 22 158/79 (105) 99 07/16/17 14:00 90 07/16/17 12:00 92 07/16/17 12:00 98.0 92 24 146/81 (102) 99 07/16/17 10:00 92 07/16/17 08:36 95 Nasal Cannula 2.00 07/16/17 08:00 98.6 95 22 121/70 (87) 96 07/16/17 08:00 95 07/16/17 06:00 89 07/16/17 04:00 92 07/16/17 04:00 99.3 92 24 135/76 (95) 92 07/16/17 02:00 96 07/16/17 00:13 94 Nasal Cannula 2.00 07/16/17 00:00 91 07/16/17 00:00 99.0 91 23 130/76 (94) 94 07/15/17 22:00 88 07/15/17 20:00 92 07/15/17 20:00 98.8 94 26 112/76 (88) 94 I/O 07/15/17 07/15/17 07/15/17 07/16/17 07/16/17 07/16/17 07:00 15:00 23:00 07:00 15:00 23:00 Intake Total 750 ml 320 ml 100 ml 240 ml Output Total 3040 ml 1230 ml 1820 ml 1750 ml Balance -2290 ml -910 ml -1720 ml -1510 ml Intake Oral 750 ml 320 ml 100 ml 240 ml Output Urine Total 3000 ml 1200 ml 1800 ml 1750 ml Chest Tube Drainage Total 40 ml 30 ml 20 ml # Bowel Movements 0 0 0 Result Diagram: 07/16/1744007/16/17440 Objective Remarks This averagely built middle-aged man is sleepy. HEENT: Head normocephalic. Pupils reactive. Tongue is moist. Throat is clear. Nasal mucosa is clear. NECK: Supple. No bruits or thyroid enlargement. CHEST: Distant breath sounds and wheezes were scattered in the upper lung khan.No crackles HEART: The heart were irregular S1-S2. No murmur. ABDOMEN: Soft and protuberant. No tenderness. Bowel sounds are active. No organomegaly. EXTREMITIES: No edema. Peripheral pulses are well felt. The patient does move all of his extremities with no gross motor deficits. NEUROLOGIC: Alert and confused. SKIN: No lesions are noted. Assessment and Plan Assessment and Plan IMPRESSION 1. Septic shock, resolved 2. Right pneumothorax 3. COPD 4. Hemoptysis 5. Chronic atrial fibrillation 6. Hyperlipidemia and hypertension 7. Paranoid schizophrenia 8. Bladder Cancer. Plan : 1. Leave Chest tube to gravity. 2. Chest Xray in am. with tube clamped for 1 hr. 3. Duonebs qid. 4. O2 2 L PRN. 5. Cont Antibiotics PO. 6. Labs in am 7.PT evaluation 8. Reduce sedation. Ursula Reed MD Jul 16, 2017 18:58
[2017-07-16] MEDS: LORazepam 1 MG TAB PO PRN (20:38)
[2017-07-17] VITALS (31 sets, daily range): BP systolic 63–134; BP diastolic 60–94; PULSE 84–128; RESP 20–41; TEMP 97.4–98.3; O2SAT 69–100
[2017-07-17] MEDS: LORazepam 1 MG TAB PO PRN (00:56)
[2017-07-17] MEDS ORDERED: DEXTROSE 50% IN WATER 50 ML SYRINGE ONE ×2 (01:29→01:31)
[2017-07-17] MEDS ORDERED: DEXTROSE 50% IN WATER 50 ML VIAL(D50) IV PUSH PRN (02:00)
[2017-07-17] MEDS ORDERED: GLUCAGON 1 MG/ML VIAL OTHER PRN (02:00)
--- NOTE | 2017-07-17 04:48 | RADRPT ---
EXAM DATE/TIME: 07/17/2017 04:07 [facility] COMPARISON: CHEST SINGLE AP, July 16, 2017, 4:09. EXTERNAL COMPARISON : INDICATIONS : Shortness of breath, possible pneumothorax, Chest tube clamped an 0300 and x-ray done one hour after. MEDICAL HISTORY : Hypertension. Cardiovascular disease. SURGICAL HISTORY : None. ENCOUNTER: Subsequent ACUITY: 2 weeks PAIN SCORE: 0/10 LOCATION: Right chest FINDINGS: A single view of the chest demonstrates right-sided chest tube without significant pneumothorax. Left lateral pneumothorax measures 8 mm pleural separation. The cardiomediastinal contours are unremarka ble. Osseous structures are intact. Subcutaneous emphysema in the right. CONCLUSION: 1. Small left lateral pneumothorax measuring 8 mm. Jacek Mcintyre MD on July 17, 2017 at 4:45 Board Certified Radiologist. This report was verified electronically.
[2017-07-17] MEDS: CHLORHEXIDINE GLUCONATE 2 % 1 PACK (2 CLOTHS) TOP SCH (06:21)
[2017-07-17 06:59] LABS: HEMATOCRIT 32.4 % (39.0-51.0); MEAN CELL VOLUME 91.7 FL (80.0-100.0); MEAN CORPUSCULAR HGB CONC 33.8 % (32.0-36.0); PLATELET COUNT 215 TH/MM3 (150-450); RED BLOOD COUNT 3.54 MIL/MM3 (4.50-5.90); RED CELL DISTRIBUTION WIDTH 13.6 % (11.6-17.2); REVIEW FLAG FINAL; WHITE BLOOD COUNT 8.4 TH/MM3 (4.0-11.0)
[2017-07-17 07:53] LABS: BICARBONATE 27.5 MEQ/L (21.0-32.0); POTASSIUM 4.1 MEQ/L (3.5-5.1)
[2017-07-17] MEDS: INSULIN ASPART SUPPLEMENTAL SCALE SQ SCH ×6 (07:54→23:42)
[2017-07-17] MEDS: CHLORHEXIDINE 0.12% (ORAL KIT) 15 ML CUP MT SCH ×2 (07:55→20:00)
[2017-07-17] MEDS: BUDESONIDE-FORMOTEROL 160/4.5 MCG INHALER INH SCH ×2 (07:56→21:40)
[2017-07-17] MEDS: AMOXICILLIN/CLAVULANATE K 875 MG TAB PO SCH ×2 (07:56→20:50)
[2017-07-17] MEDS: DILTIAZEM HCL 30 MG TAB PO SCH ×4 (07:56→20:50)
[2017-07-17] MEDS: THIAMINE HCL 100 MG TAB PO SCH (07:56)
[2017-07-17] MEDS: SODIUM CHLORIDE 0.9% FLUSH 10 ML FLUSH IV FLUSH SCH ×2 (07:56→20:50)
[2017-07-17] MEDS: predniSONE 10 MG TAB PO SCH ×2 (07:56→20:50)
[2017-07-17] MEDS: MULTIVITAMINS/MINERALS THERAPEUTIC TAB PO SCH (07:57)
[2017-07-17] MEDS: BENZTROPINE MESYLATE 2 MG TAB PO SCH (07:57)
[2017-07-17] MEDS: PANTOPRAZOLE SOD 40 MG DELAYED RELEASE TAB PO SCH ×2 (07:57→20:50)
[2017-07-17] MEDS: ASPIRIN 325 MG TAB PO SCH (07:57)
[2017-07-17] MEDS: HALOPERIDOL LACTATE ORAL CONC 10 MG/5 ML CUP PO SCH ×2 (07:57→20:50)
[2017-07-17] MEDS: FOLIC ACID 1 MG TAB PO SCH (07:57)
[2017-07-17] MEDS: ZIPRASIDONE HCL 60 MG CAP PO SCH ×2 (07:57→20:50)
--- NOTE | 2017-07-17 09:27 | HHI.PR ---
Subjective Remarks EMR reviewed showing patient was hypoxic in 60s-80s. I spoke with patient's nurse who stated that this was documented wrong. She stated that the system was measuring his oxygenation wrong and that it was manually checked and normal. This was also signed out from the night nurse to the daytime nurse. Per nurse patient was given Ativan last night and night nurse was told not to give any sedating medication for to patient. When I saw patient the best side he was becoming more alert and was asking to eat. When I asked him about if he has shortness of breathing or any pain he was focused on eating. Patient had no other complaints. Objective Vitals Vital Signs Date Time Temp Pulse Resp B/P (MAP) Pulse Ox O2 Delivery O2 Flow Rate FiO2 07/17/17 08:43 100 Nasal Cannula 2.00 07/17/17 06:00 92 07/17/17 04:45 92 32 69 07/17/17 04:30 90 29 75 07/17/17 04:15 128 22 73 07/17/17 04:00 108 07/17/17 04:00 108 20 134/63 (86) 83 07/17/17 04:00 98.2 07/17/17 03:45 110 38 84 07/17/17 03:30 100 35 82 07/17/17 03:15 90 34 07/17/17 03:00 95 34 131/76 (94) 82 07/17/17 02:45 109 33 90 07/17/17 02:30 101 37 76 07/17/17 02:15 93 41 87 07/17/17 02:00 116 07/17/17 02:00 116 34 126/93 (104) 79 07/17/17 01:45 85 34 98 07/17/17 01:30 107 36 87 07/17/17 01:15 99 33 83 07/17/17 01:00 121 31 120/74 (89) 82 07/17/17 00:45 95 26 77 07/17/17 00:30 107 33 86 07/17/17 00:15 91 22 92 07/17/17 00:00 97.5 07/17/17 00:00 90 23 121/77 (92) 90 07/17/17 00:00 90 07/16/17 23:45 93 33 95 07/16/17 23:30 88 29 89 07/16/17 23:15 84 30 91 07/16/17 23:01 82 25 122/62 (82) 07/16/17 23:00 118 40 83 07/16/17 22:45 104 25 87 07/16/17 22:30 112 22 95 07/16/17 22:15 95 28 95 07/16/17 22:00 108 07/16/17 22:00 108 33 154/106 (122) 91 07/16/17 21:45 92 32 92 07/16/17 21:30 93 30 96 07/16/17 21:21 95 Nasal Cannula 2.00 07/16/17 21:15 90 26 96 07/16/17 21:00 95 28 143/75 (97) 81 07/16/17 20:45 94 27 95 07/16/17 20:30 99 34 94 07/16/17 20:15 99 26 93 07/16/17 20:00 112 19 115/66 (82) 88 07/16/17 20:00 112 07/16/17 20:00 98.3 22 07/16/17 18:00 99 07/16/17 16:00 91 07/16/17 16:00 97.8 91 22 158/79 (105) 99 07/16/17 14:00 90 07/16/17 12:00 92 07/16/17 12:00 98.0 92 24 146/81 (102) 99 07/16/17 10:00 92 I/O 07/16/17 07/16/17 07/16/17 07/17/17 07/17/17 07/17/17 07:00 15:00 23:00 07:00 15:00 23:00 Intake Total 100 ml 240 ml 40 ml Output Total 1820 ml 1750 ml 14 ml Balance -1720 ml -1510 ml 26 ml Intake Oral 100 ml 240 ml 40 ml Output Urine Total 1800 ml 1750 ml Chest Tube Drainage Total 20 ml 14 ml # Voids 8 # Bowel Movements 0 Result Diagram: 07/17/17 0535 07/17/17 0535 Objective Remarks GENERAL: Cachectic poorly kempt elderly male who is on NC, laying in bed with restraints secondary to confusion. NECK: Trachea midline. No JVD. Well-healed previous trach incision CARDIOVASCULAR: Atrial fibrillation rate controlled. RESPIRATORY: Well-healed left thoracotomy scar. Right chest tubes x1 in place no air leak. GASTROINTESTINAL: Abdomen soft, non-distended. Well-healed vertical abdominal scar MUSCULOSKELETAL: No obvious deformities. Erythema over bilateral knee NEUROLOGICAL: Patient becoming more alert and asking LUCHO but will not answer any other questions. No focal deficits. Medications and IVs Current Medications Norepinephrine Bitartrate (Levophed Inj) 4 mg STK-MED ONCE .ROUTE ; Start 07/06 at 09:32; Stop 07/06/17 at 09:33; Status DC Sodium Chloride 1,000 ml @ 1,000 mls/hr Q1H ONCE IV Last administered on 07/06 11:03; Start 07/06/17 at 09:37; Stop 07/06/17 at 10:36; Status DC Sodium Chloride 1,000 ml @ 1,000 mls/hr Q1H ONCE IV Last administered on 07/06 11:04; Start 07/06/17 at 09:37; Stop 07/06/17 at 10:36; Status DC Sodium Chloride 400 ml @ 1,000 mls/hr Q24M ONCE IV Last administered on 11:21; Start 07/06/17 at 09:37; Stop 07/06/17 at 10:00; Status DC Norepinephrine Bitartrate 250 ml @ 7.5 mls/hr TITRATE PRN IV Maintain MAP > 65 Last administered on 07/06/17 11:05; Start 07/06/17 at 09:45; Stop at 14:40; Status DC Vasopressin 40 units/Dextrose 100 ml @ 6 mls/hr [id number] IV ; Start 07/06/17 at 09:37; Stop 07/06/17 at 21:59; Status DC Epinephrine HCl 2 mg/Dextrose 250 ml @ 22.5 mls/hr TITRATE PRN IV Maintain MAP > 65 mmHg; Start 07/06/17 at 09:45; Stop 07/07/17 at 12:00; Status DC Midazolam HCl 100 ml @ As Directed STK-MED ONCE .ROUTE ; Start 07/06/17 at 09: 53; Stop 07/06/17 at 09:54; Status DC Etomidate (Amidate Inj) 20 mg STK-MED ONCE .ROUTE ; Start 07/06/17 at 09:53; Stop 07/06/17 at 09:54; Status DC Succinylcholine Chloride (Quelicin Inj) 200 mg STK-MED ONCE .ROUTE ; Start at 09:53; Stop 07/06/17 at 09:54; Status DC Piperacillin Sod/ Tazobactam Sod 100 ml @ 200 mls/hr ONCE STAT IV Last administered on 07/06/17 11:22; Start 07/06/17 at 10:21; Stop 07/06/17 at 10 :50; Status DC Sodium Chloride 1,000 ml @ 150 mls/hr Q6H40M IV ; Start 07/06/17 at 11:00; Stop 07/06/17 at 12:13; Status DC Sodium Chloride (NS Flush) 2 ml UNSCH PRN IV FLUSH FLUSH AFTER USING IV ACCESS ; Start 07/06/17 at 10:30 Sodium Chloride (NS Flush) 2 ml BID IV FLUSH Last administered on 07/17/17 07 :56; Start 07/06/17 at 21:00 Albuterol/ Ipratropium (Duoneb Neb) 1 ampule Q6HR NEB NEB Last administered on 07/10/17 08:16; Start 07/06/17 at 10:30; Stop 07/10/17 at 10:29; Status DC Albuterol Sulfate (Albuterol Neb) 2.5 mg Q4HR NEB PRN INH SHORTNESS OF BREATH Last administered on 07/08/17 10:33; Start 07/06/17 at 12:00 Chlorhexidine Gluconate (Peridex 0.12% Liq) 15 ml BID@08,20 MT Last administered on 07/15/17 08:00; Start 07/06/17 at 20:00 Pantoprazole Sodium (Protonix Inj) 40 mg DAILY IV PUSH Last administered on 09:19; Start 07/06/17 at 11:00; Stop 07/10/17 at 12:45; Status DC Enoxaparin Sodium (Lovenox Inj) 30 mg Q24H SQ Last administered on 07/09/17 10:55; Start 07/06/17 at 11:30; Stop 07/13/17 at 15:48; Status DC Miscellaneous Information 1 [id number] XX ; Start 07/06/17 at 10:30 Chlorhexidine Gluconate (Chlorhexidine 2% Cloth) Taper DAILY@04 TOP Last administered on 07/17/17 06:21; Start 07/07/17 at 04:00; Stop 07/03/18 at 03 :59 Chlorhexidine Gluconate (Chlorhexidine 2% Cloth) 3 pack UNSCH PRN TOP HYGIENIC CARE; Start 07/06/17 at 10:30 Fentanyl Citrate 250 ml @ 5 mls/hr TITRATE PRN IV SEDATION; Start 07/06/17 at 11:30; Stop 07/08/17 at 08:21; Status DC Midazolam HCl 100 ml @ 2 mls/hr TITRATE PRN IV SEDATION Last administered on 18:06; Start 07/06/17 at 11:30; Stop 07/06/17 at 14:38; Status DC Metronidazole 100 ml @ 100 mls/hr Q8H IV Last administered on 07/13/17 12:23 ; Start 07/06/17 at 11:15; Stop 07/13/17 at 15:49; Status DC Cefepime HCl 1000 mg/Sodium Chloride 100 ml @ 200 mls/hr Q8H IV Last administered on 07/13/17 12:21; Start 07/06/17 at 11:30; Stop 07/13/17 at 15 :49; Status DC Pharmacy Profile Note 0 ml @ 0 mls/hr UNSCH OTHER ; Start 07/06/17 at 10:45; Status Cancel Etomidate (Amidate Inj) 20 mg ONCE ONCE IVP Last administered on 07/06/17 09 :55; Start 07/06/17 at 11:30; Stop 07/06/17 at 11:31; Status DC Succinylcholine Chloride (Quelicin Inj) 100 mg ONCE ONCE IV PUSH Last administered on 07/06/17 09:55; Start 07/06/17 at 11:30; Stop 07/06/17 at 11 :31; Status DC Midazolam HCl 100 ml @ 2 mls/hr TITRATE PRN IV SEDATION; Start 07/06/17 at 11: 30; Stop 07/06/17 at 14:39; Status DC Vancomycin HCl 1000 mg/Sodium Chloride 250 ml @ 250 mls/hr ONCE ONCE IV ; Start 07/06/17 at 13:00; Stop 07/06/17 at 13:59; Status DC Sodium Chloride 1,000 ml @ 999 mls/hr BOLUS ONCE IV ; Start 07/06/17 at 12:00 ; Stop 07/06/17 at 13:00; Status DC Sodium Chloride 1,000 ml @ 999 mls/hr BOLUS ONCE IV Last administered on 12:45; Start 07/06/17 at 12:15; Stop 07/06/17 at 13:15; Status DC Insulin Aspart (NovoLOG SUPPLEMENTAL SCALE) 1 Q4HR SQ Last administered on 20:00; Start 07/06/17 at 12:15 Sodium Bicarbonate 150 meq/Sterile Water 1,000 ml @ 150 mls/hr Q6H40M IV Last administered on 07/07/17 06:10; Start 07/06/17 at 13:00; Stop 07/07/17 at 09 :31; Status DC Sodium Bicarbonate (Sodium Bicarbonate 8.4% Inj) 100 meq ONCE ONCE IV PUSH ; Start 07/06/17 at 12:15; Stop 07/06/17 at 12:19; Status DC Methylprednisolone Sodium Succinate (SoluMEDROL INJ) 60 mg Q6HR IV PUSH Last administered on 07/08/17 03:45; Start 07/06/17 at 12:30; Stop 07/08/17 at 08 :21; Status DC Aspirin (Aspirin) 325 mg DAILY PO Last administered on 07/17/17 07:57; Start 07/07/17 at 09:00 Benztropine Mesylate (Cogentin) 2 mg DAILY PO Last administered on 07/17/17 07:57; Start 07/07/17 at 09:00 Ziprasidone (Geodon) 60 mg BID PO Last administered on 07/17/17 07:57; Start 07/06/17 at 21:00 Diltiazem HCl 125 mg/Sodium Chloride 125 ml @ 5 mls/hr TITRATE PRN IV Tachycardia Last administered on 07/07/17 06:11; Start 07/06/17 at 14:00; Stop 07/12/17 at 10:21; Status DC Norepinephrine Bitartrate 250 ml @ 37.5 mls/hr TITRATE PRN IV Maintain MAP > 65 mmHg Last administered on 07/07/17 18:31; Start 07/06/17 at 14:15; Stop 07/12/17 at 10:21; Status DC Midazolam HCl 100 ml @ 6 mls/hr TITRATE PRN IV SEDATION Last administered on 23:43; Start 07/06/17 at 14:15; Stop 07/08/17 at 08:21; Status DC Phenylephrine HCl 160 mg/Dextrose 500 ml @ 7.5 mls/hr TITRATE PRN IV Blood pressure management Last administered on 07/06/17 22:44; Start 07/06/17 at 22 :00; Stop 07/07/17 at 12:00; Status DC Terbutaline Sulfate (Brethine Inj) 1 mg UNSCH PRN SQ For Extravasation; Start 07/06/17 at 22:00 Vasopressin 40 units/Dextrose 100 ml @ 6 mls/hr [id number] IV ; Start 07/06/17 at 21:56; Stop 07/12/17 at 10:21; Status DC Vasopressin (Pitressin Inj) 20 units STK-MED ONCE .ROUTE ; Start 07/06/17 at 22 :02; Stop 07/06/17 at 22:03; Status DC Sodium Chloride 1,000 ml @ 75 mls/hr [id number] IV Last administered on 04:55; Start 07/07/17 at 09:45; Stop 07/08/17 at 10:38; Status DC Miscellaneous Information D/C ICU ELECTROLYTE ORDERS... UNSCH PRN .XX SEE DOSE INSTRUCTIONS; Start 07/08/17 at 05:45 Miscellaneous Information ICU - CALL ORDERING PHYSIC... UNSCH PRN .XX SEE DOSE INSTRUCTIONS; Start 07/08/17 at 05:45 Potassium Chloride 100 ml @ 25 mls/hr UNSCH PRN IV ELECTROLYTE REPLACEMENT; Start 07/08/17 at 05:45 Potassium Bicarb/ Potassium Chloride (K-Lyte Cl Eff) 50 meq UNSCH PRN PO ELECTROLYTE REPLACEMENT; Start 07/08/17 at 05:45 Potassium Chloride 100 ml @ 50 mls/hr UNSCH PRN IV ELECTROLYTE REPLACEMENT; Start 07/08/17 at 05:45 Magnesium Sulfate 4 gm/Sodium Chloride 108 ml @ 54 mls/hr UNSCH PRN IV ELECTROLYTE REPLACEMENT; Start 07/08/17 at 05:45 Magnesium Sulfate 2 gm/Sodium Chloride 104 ml @ 52 mls/hr UNSCH PRN IV ELECTROLYTE REPLACEMENT; Start 07/08/17 at 05:45 Magnesium Oxide (Mag-Ox) 800 mg UNSCH PRN PO ELECTROLYTE REPLACEMENT; Start at 05:45 Sodium Phosphate 30 mmol/Sodium Chloride 260 ml @ 43.333 mls/ hr UNSCH PRN IV ELECTROLYTE REPLACEMENT Last administered on 07/11/17 11:01; Start 07/08/17 at 05:45 Potassium Phosphate (K-Phos) 2,000 mg UNSCH PRN PO ELECTROLYTE REPLACEMENT; Start 07/08/17 at 05:45 Potassium Phosphate 30 mmol/ Sodium Chloride 260 ml @ 43.333 mls/ hr UNSCH PRN IV ELECTROLYTE REPLACEMENT Last administered on 07/08/17 06:23; Start at 05:45 Methylprednisolone Sodium Succinate (SoluMEDROL INJ) 40 mg Q8HR IV PUSH Last administered on 07/14/17 06:54; Start 07/08/17 at 14:00; Stop 07/14/17 at 12 :29; Status DC Vancomycin HCl 1250 mg/Sodium Chloride 262.5 ml @ 250 mls/hr ONCE ONCE IV ; Start 07/08/17 at 11:00; Stop 07/08/17 at 12:02; Status Cancel Potassium Chloride 20 meq/ Sodium Chloride 38.5 meq/Sterile Water 1,019.625 ml @ 100 mls/hr [id number] IV Last administered on 07/10/17 22:03; Start 07/08/17 at 13:00; Stop 07/11/17 at 09:20; Status DC Lidocaine HCl (Xylocaine 1% Inj (50 ml)) 50 ml STK-MED ONCE .ROUTE Last administered on 07/08/17 13:19; Start 07/08/17 at 13:19; Stop 07/08/17 at 13 :20; Status DC Pantoprazole Sodium 80 mg/ Sodium Chloride 100 ml @ 10 mls/hr Q10H IV Last administered on 07/10/17 12:26; Start 07/09/17 at 17:00; Stop 07/10/17 at 12 :09; Status DC Propofol 100 ml @ As Directed STK-MED ONCE .ROUTE ; Start 07/09/17 at 18:30; Stop 07/09/17 at 18:31; Status DC Miscellaneous Information ALL NURSING DEPARTME... UNSCH PRN .XX SEE LABEL COMMENTS; Start 07/09/17 at 19:30; Stop 07/10/17 at 19:29; Status DC Propofol 100 ml @ 1.755 mls/ hr TITRATE PRN IV Sedation Last administered on 07/10/17 05:05; Start 07/09/17 at 19:30; Stop 07/12/17 at 10:21; Status DC Pantoprazole Sodium (Protonix) 40 mg Q12HR PO Last administered on 07/17/17 07:57; Start 07/10/17 at 21:00 Haloperidol Lactate (Haldol Lactate Liq) 12.5 mg BID PO Last administered on 07:57; Start 07/11/17 at 21:00 Diltiazem HCl (Cardizem) 30 mg QID PO Last administered on 07/17/17 07:56; Start 07/11/17 at 13:00 Budesonide/ Formoterol Fumarate (Symbicort 160-4.5 Inh) 1 puff Q12HR INH Last administered on 07/15/17 20:39; Start 07/11/17 at 09:45 Tiotropium Wesley (Spiriva Inh) 18 mcg DAILY INH Last administered on 09:00; Start 07/11/17 at 09:45; Stop 07/14/17 at 12:29; Status DC Albuterol/ Ipratropium (Duoneb Neb) 1 ampule QID NEB NEB Last administered on 07/15/17 11:15; Start 07/11/17 at 16:00; Stop 07/15/17 at 15:59; Status DC Phenylephrine HCl (Neosynephrine/ NS 1000 Mcg/10ml Syr) 2,000 mcg STK-MED ONCE IV ; Start 07/09/17 at 12:00; Stop 07/11/17 at 14:28; Status DC Ephedrine Sulfate (ePHEDrine/NS 25 MG/5 ML SYR) 25 mg STK-MED ONCE IV ; Start 07/09/17 at 12:00; Stop 07/11/17 at 14:28; Status DC Succinylcholine Chloride (Quelicin Inj) 100 mg STK-MED ONCE IV PUSH ; Start at 12:00; Stop 07/11/17 at 14:28; Status DC Dexamethasone Sodium Phosphate (Decadron Inj) 4 mg STK-MED ONCE IV ; Start at 12:00; Stop 07/11/17 at 14:28; Status DC Ondansetron HCl (Zofran Inj) 4 mg STK-MED ONCE IV ; Start 07/09/17 at 12:00; Stop 07/11/17 at 14:28; Status DC Propofol (Diprivan 200 Mg/20 ml Inj) 400 mg STK-MED ONCE IV ; Start 07/09/17 at 12:00; Stop 07/11/17 at 14:28; Status DC Sterile Water (Sterile Water For Injection) 20 ml STK-MED ONCE .XX ; Start at 12:00; Stop 07/11/17 at 14:28; Status DC Sodium Chloride (Sodium Chloride 0.9% Inj) 20 ml STK-MED ONCE IV ; Start at 12:00; Stop 07/11/17 at 14:28; Status DC Midazolam HCl (Versed Inj) 5 mg ONCE ONCE IV PUSH Last administered on 09:31; Start 07/12/17 at 10:00; Stop 07/12/17 at 10:01; Status DC Fentanyl Citrate (fentaNYL INJ) 100 mcg ONCE ONCE IV PUSH Last administered on 07/12/17 09:31; Start 07/12/17 at 10:00; Stop 07/12/17 at 10:01; Status DC Enoxaparin Sodium (Lovenox Inj) 40 mg Q24H SQ Last administered on 07/16/17 12:06; Start 07/14/17 at 12:00 Ceftriaxone Sodium 2000 mg/ Sodium Chloride 100 ml @ 200 mls/hr Q24H IV Last administered on 07/14/17 18:44; Start 07/13/17 at 16:00; Stop 07/15/17 at 14 :36; Status DC Iohexol (Omnipaque 350 Inj) 78 ml STK-MED ONCE IVCONTRAST Last administered on 07/13/17 18:20; Start 07/13/17 at 18:20; Stop 07/13/17 at 18:21; Status DC Methylprednisolone Sodium Succinate (SoluMEDROL INJ) 40 mg BID IV PUSH ; Start 07/14/17 at 21:00; Stop 07/14/17 at 21:00; Status DC Methylprednisolone Sodium Succinate (SoluMEDROL INJ) 20 mg BID IV PUSH Last administered on 07/15/17 09:01; Start 07/14/17 at 21:00; Stop 07/15/17 at 12 :59; Status DC Folic Acid (Folate) 1 mg DAILY PO Last administered on 07/17/17 07:57; Start 07/16/17 at 09:00; Stop 07/21/17 at 08:59 Thiamine HCl (Vitamin B1) 100 mg DAILY PO Last administered on 07/17/17 07:56 ; Start 07/16/17 at 09:00 Multivitamins/ Minerals Therapeutic (Theragran M Tab) 1 tab DAILY PO Last administered on 07/17/17 07:57; Start 07/16/17 at 09:00; Stop 07/21/17 at 08 :59 Flumazenil (Romazicon Inj) 0.2 mg Q1M PRN IV PUSH SEE LABEL COMMENTS; Start at 12:15 Lorazepam (Ativan) 1 mg Q4H PRN PO CIWA 8 - 10 Last administered on 07/17/17 00:56; Start 07/15/17 at 12:15 Lorazepam (Ativan Inj) 1 mg Q4H PRN IV PUSH CIWA 8 - 10; Start 07/15/17 at 12: 15 Lorazepam (Ativan) 2 mg Q2H PRN PO CIWA 11-14 Last administered on 07/17/17 03:09; Start 07/15/17 at 12:15 Lorazepam (Ativan Inj) 2 mg Q2H PRN IV PUSH CIWA 11-14 Last administered on 15:29; Start 07/15/17 at 12:15 Lorazepam (Ativan Inj) 2 mg Q1H PRN IV PUSH CIWA 15-20; Start 07/15/17 at 12: 15 Lorazepam (Ativan Inj) 2 mg Q15M PRN IV PUSH CIWA > 20; Start 07/15/17 at 12: 15 Prednisone (Deltasone) 10 mg BID PO Last administered on 07/17/17 07:56; Start 07/15/17 at 21:00 Amoxicillin/ Clavulanate Potassium (Augmentin) 875 mg Q12HR PO Last administered on 07/17/17 07:56; Start 07/15/17 at 21:00 Dextrose (D50w (Syr) Inj) 50 ml STK-MED ONCE .ROUTE Last administered on 01:29; Start 07/17/17 at 01:29; Stop 07/17/17 at 01:30; Status DC Dextrose (D50w (Syr) Inj) 50 ml STK-MED ONCE .ROUTE ; Start 07/17/17 at 01:31; Stop 07/17/17 at 01:32; Status DC Dextrose (D50w (Vial) Inj) 50 ml UNSCH PRN IV PUSH HYPOGLYCEMIA - SEE COMMENTS ; Start 07/17/17 at 02:00 Glucagon (Glucagon Inj) 1 mg UNSCH PRN OTHER HYPOGLYCEMIA-SEE COMMENTS; Start 07/17/17 at 02:00 A/P Problem List: (1) Septic shock ICD Code: A41.9 - Sepsis, unspecified organism; R65.21 - Severe sepsis with septic shock (2) Acute metabolic encephalopathy ICD Code: G93.41 - Metabolic encephalopathy (3) Acute kidney failure ICD Code: N17.9 - Acute kidney failure, unspecified (4) Severe dehydration ICD Code: E86.0 - Dehydration (5) Lactic acidemia ICD Code: E87.2 - Acidosis (6) Metabolic acidemia ICD Code: E87.2 - Acidosis (7) Atrial fibrillation with rapid ventricular response ICD Code: I48.91 - Unspecified atrial fibrillation (8) UTI (urinary tract infection) ICD Code: N39.0 - Urinary tract infection, site not specified Status: Acute (9) Hyperglycemia ICD Code: R73.9 - Hyperglycemia, unspecified (10) Schizophrenia ICD Code: F20.9 - Schizophrenia, unspecified Status: Acute (11) COPD (chronic obstructive pulmonary disease) ICD Code: J44.9 - Chronic obstructive pulmonary disease Status: Chronic (12) A-fib ICD Code: I48.91 - Atrial fibrillation Status: Chronic (13) DM (diabetes mellitus) ICD Code: E11.9 - Diabetes mellitus Status: Chronic Assessment and Plan This is a 66-year-old male presented from the [facility] with altered mental status found to be septic Acute metabolic encephalopathy -Most likely secondary to metabolic encephalopathy. Patient continues to be intermittently confused and sedated because of worsening with Ativan. He was given another dose last night. Will discontinue the medication in the EMR system. - CT of the head negative for acute findings Acute respiratory failure/COPD with exacerbation /Right-sided pneumothorax, persistent/hemoptysis - Status post extubated twice. CT scan of chest shows no mass. -Switchboard Manager consulted and following. - DuoNeb every 6 hours and when necessary. Per vehicle dismantler segmental is being discontinued. - Continue Symbicort, Spiriva - CXR 07/12 expanding right apical pneumothorax- new 10F pigtail place -Patient one of the chest tube out and chest x-ray repeated showed a small apical pneumothorax. -Being managed by vehicle dismantler. - Sputum culture-MSSA. Status post Rocephin. Patient currently on Augmentin. -Chest x-ray repeated today and showed a Small left lateral pneumothorax measuring 8 mm. clinically he continues have good oxygenation and no respiratory distress. Dr. Ramos was notified by the nurse and he stated to continue to monitor clinically and no intervention needed at the moment. Septic shock - resolved. -Secondary to UTI MSSA pneumonia -Status post pressors. Now off of pressors. - s/p Normal saline IV fluids 4L bolus on admission. Off all IVF - Remains off pressors - 2d echo EF 55-60%. Continue aspirin. -Status post Rocephin on 07/11 for now on Augmentin. Status post vancomycin, cefepime and Flagyl. A. fib with RVR - rate controlled. -On Cardizem. -Not a candidate for long-term anticoagulation, continue Aspirin Long segment Rodarte's Esophagus Hematemesis- resolved. - Diet per GI. IV Protonix - Advance diet per GI. GI signed off. Acute kidney failure - improving. - Acute kidney failure is most likely from severe dehydration, creat improved - IV to KVO Monitor renal function closely. No Avery indicated - Nephrology following Urothelial cancer - Further recommendations regarding urothelial cancer by oncology and urology Hyperglycemia, type 2 diabetes - Sliding-scale with NovoLog .History of schizophrenia - Continue Geodon and benztropine. resumed Haldol 07/11/17 PROPH: Bilateral lower extremity SCDs. resumed lovenox 07/13. IV Protonix LINES: - Utilize peripheral IVs, central line if needed Patient continues to be intimately confused and requires restraints due to pulling out chest tube which can cause harm to himself. Will need to continue restraint for confusion since patient is at risk for danger himself and others. Discussed with patient's nurse. I also discussed with nurse and charge nurse to address to the night nurse in regards to inaccurate data that was enter of not reviewed overnight and that only correct data should be enter in EMR. Problem Qualifiers (1) Acute kidney failure: Qualified Codes: N17.9 - Acute kidney failure, unspecified (2) DM (diabetes mellitus): Melissa Buenrostro MD Jul 17, 2017 09:27
--- NOTE | 2017-07-17 10:26 | HHI.PR ---
Subjective Remarks Sleepy. Had Ativan last night. On O2 2 L Seems lethargic. Chest tube is not draining or having air leak. No Right Pneumothorax. Objective Vital Signs Date Time Temp Pulse Resp B/P (MAP) Pulse Ox O2 Delivery O2 Flow Rate FiO2 07/17/17 10:00 84 07/17/17 08:43 100 Nasal Cannula 2.00 07/17/17 08:00 97.9 92 22 121/70 (87) 98 07/17/17 08:00 92 07/17/17 06:00 92 07/17/17 04:45 92 32 69 07/17/17 04:30 90 29 75 07/17/17 04:15 128 22 73 07/17/17 04:00 108 07/17/17 04:00 108 20 134/63 (86) 83 07/17/17 04:00 98.2 07/17/17 03:45 110 38 84 07/17/17 03:30 100 35 82 07/17/17 03:15 90 34 07/17/17 03:00 95 34 131/76 (94) 82 07/17/17 02:45 109 33 90 07/17/17 02:30 101 37 76 07/17/17 02:15 93 41 87 07/17/17 02:00 116 07/17/17 02:00 116 34 126/93 (104) 79 07/17/17 01:45 85 34 98 07/17/17 01:30 107 36 87 07/17/17 01:15 99 33 83 07/17/17 01:00 121 31 120/74 (89) 82 07/17/17 00:45 95 26 77 07/17/17 00:30 107 33 86 07/17/17 00:15 91 22 92 07/17/17 00:00 97.5 07/17/17 00:00 90 23 121/77 (92) 90 07/17/17 00:00 90 07/16/17 23:45 93 33 95 07/16/17 23:30 88 29 89 07/16/17 23:15 84 30 91 07/16/17 23:01 82 25 122/62 (82) 07/16/17 23:00 118 40 83 07/16/17 22:45 104 25 87 07/16/17 22:30 112 22 95 07/16/17 22:15 95 28 95 07/16/17 22:00 108 07/16/17 22:00 108 33 154/106 (122) 91 07/16/17 21:45 92 32 92 07/16/17 21:30 93 30 96 07/16/17 21:21 95 Nasal Cannula 2.00 07/16/17 21:15 90 26 96 07/16/17 21:00 95 28 143/75 (97) 81 07/16/17 20:45 94 27 95 07/16/17 20:30 99 34 94 07/16/17 20:15 99 26 93 07/16/17 20:00 112 19 115/66 (82) 88 07/16/17 20:00 112 07/16/17 20:00 98.3 22 07/16/17 18:00 99 07/16/17 16:00 91 07/16/17 16:00 97.8 91 22 158/79 (105) 99 07/16/17 14:00 90 07/16/17 12:00 92 07/16/17 12:00 98.0 92 24 146/81 (102) 99 I/O 07/16/17 07/16/17 07/16/17 07/17/17 07/17/17 07/17/17 07:00 15:00 23:00 07:00 15:00 23:00 Intake Total 100 ml 240 ml 40 ml Output Total 1820 ml 1750 ml 14 ml Balance -1720 ml -1510 ml 26 ml Intake Oral 100 ml 240 ml 40 ml Output Urine Total 1800 ml 1750 ml Chest Tube Drainage Total 20 ml 14 ml # Voids 8 # Bowel Movements 0 Result Diagram: 07/17/17 0535 07/17/17 0535 Objective Remarks This averagely built middle-aged man is sleepy. HEENT: Head normocephalic. Pupils reactive. Tongue is moist. Throat is clear. Nasal mucosa is clear. NECK: Supple. No bruits or thyroid enlargement. CHEST: Distant breath sounds and wheezes were scattered in the upper lung khan.No crackles. HEART: The heart were irregular S1-S2. No murmur. ABDOMEN: Soft and protuberant. No tenderness. Bowel sounds are active. No organomegaly. EXTREMITIES: No edema. Peripheral pulses are well felt. The patient does move all of his extremities with no gross motor deficits. NEUROLOGIC: Alert and confused. SKIN: No lesions are noted. Assessment and Plan Assessment and Plan IMPRESSION 1. Septic shock, resolved 2. Right pneumothorax 3. COPD 4. Hemoptysis 5. Chronic atrial fibrillation 6. Hyperlipidemia and hypertension 7. Paranoid schizophrenia 8. Bladder Cancer. Plan : 1. Leave Chest tube to gravity. 2. Chest Xray in am. Keep Chest tube clamped 3. Duonebs qid. 4. O2 2 L PRN. 5. Cont Antibiotics PO. 6. Soft diet. 7.PT evaluation 8. Reduce sedation. Ursula Reed MD Jul 17, 2017 10:26
[2017-07-17] MEDS: ENOXAPARIN SODIUM 30 MG/0.3 ML SYRINGE SQ SCH (13:21)
[2017-07-18] VITALS (9 sets, daily range): BP systolic 97–125; BP diastolic 58–74; PULSE 64–97; RESP 15–28; TEMP 97–98.8; O2SAT 96–100
[2017-07-18] MEDS: INSULIN ASPART SUPPLEMENTAL SCALE SQ SCH ×2 (04:00→08:00)
[2017-07-18] MEDS: CHLORHEXIDINE GLUCONATE 2 % 1 PACK (2 CLOTHS) TOP SCH (04:00)
[2017-07-18 05:01] LABS: HEMATOCRIT 32.1 % (39.0-51.0); MEAN CELL VOLUME 92.4 FL (80.0-100.0); MEAN CORPUSCULAR HEMOGLOBIN 31.8 PG (27.0-34.0); MEAN CORPUSCULAR HGB CONC 34.4 % (32.0-36.0); PLATELET COUNT 225 TH/MM3 (150-450); RED BLOOD COUNT 3.47 MIL/MM3 (4.50-5.90); RED CELL DISTRIBUTION WIDTH 13.8 % (11.6-17.2); REVIEW FLAG FINAL; WHITE BLOOD COUNT 7.9 TH/MM3 (4.0-11.0)
--- NOTE | 2017-07-18 05:15 | RADRPT ---
EXAM DATE/TIME: 07/18/2017 04:14 [facility] COMPARISON: CHEST SINGLE AP, July 17, 2017, 4:07. INDICATIONS : Evaluate for pneumothorax. MEDICAL HISTORY : Hypertension. Cardiovascular disease. SURGICAL HISTORY : None. ENCOUNTER: Subsequent ACUITY: 2 weeks PAIN SCORE: Non-responsive. LOCATION: chest FINDINGS: Right chest tube remains in place. No perceptible pneumothorax. Right chest wall emphysema again note d, not significantly changed. No persistent residual pneumothorax seen on the left. No infiltrate or effusion. Heart size stable, within normal limits. CONCLUSION: No perceptible pneumothorax. Right chest tube remains in place. Ravi Head MD on July 18, 2017 at 5:13 Board Certified Radiologist. This report was verified electronically.
[2017-07-18 05:31] LABS: POTASSIUM 3.9 MEQ/L (3.5-5.1)
[2017-07-18] MEDS: AMOXICILLIN/CLAVULANATE K 875 MG TAB PO SCH ×2 (08:00→21:04)
[2017-07-18] MEDS: ZIPRASIDONE HCL 60 MG CAP PO SCH ×2 (08:00→21:00)
[2017-07-18] MEDS: SODIUM CHLORIDE 0.9% FLUSH 10 ML FLUSH IV FLUSH SCH ×2 (08:00→21:04)
[2017-07-18] MEDS: CHLORHEXIDINE 0.12% (ORAL KIT) 15 ML CUP MT SCH ×2 (08:00→20:00)
[2017-07-18] MEDS: BUDESONIDE-FORMOTEROL 160/4.5 MCG INHALER INH SCH ×2 (08:04→21:06)
[2017-07-18] MEDS: predniSONE 10 MG TAB PO SCH ×2 (08:05→21:04)
[2017-07-18] MEDS: BENZTROPINE MESYLATE 2 MG TAB PO SCH (08:05)
[2017-07-18] MEDS: DILTIAZEM HCL 30 MG TAB PO SCH ×4 (08:05→21:04)
[2017-07-18] MEDS: HALOPERIDOL LACTATE ORAL CONC 10 MG/5 ML CUP PO SCH ×2 (08:05→21:04)
[2017-07-18] MEDS: ASPIRIN 325 MG TAB PO SCH (08:06)
[2017-07-18] MEDS: PANTOPRAZOLE SOD 40 MG DELAYED RELEASE TAB PO SCH ×2 (08:06→21:04)
--- NOTE | 2017-07-18 10:08 | HHI.PR ---
Subjective Remarks For for altered mental status, acute respiratory failure, pneumothorax, intermittent agitation Patient's nurse at the bedside during the interview. Patient is confused but tries to answer questions. He follows commands. Denies any shortness of breathing. His nurse was bedside stated that patient ate his breakfast this morning and did very well. He had no issues or complaints. Objective Vitals Vital Signs Date Time Temp Pulse Resp B/P (MAP) Pulse Ox O2 Delivery O2 Flow Rate FiO2 07/18/17 06:00 90 07/18/17 04:00 98.4 80 15 125/70 (88) 100 07/18/17 04:00 92 07/18/17 02:00 97 07/18/17 00:00 97 07/18/17 00:00 98.8 97 28 97/74 (82) 98 07/17/17 22:00 92 07/17/17 21:25 99 Nasal Cannula 2.00 07/17/17 20:00 98.3 101 28 122/60 (80) 98 07/17/17 20:00 101 07/17/17 18:00 100 07/17/17 16:00 100 07/17/17 16:00 97.6 85 27 128/90 (103) 94 07/17/17 14:00 100 07/17/17 12:00 97.4 102 21 109/77 (88) 94 07/17/17 12:00 102 I/O 07/17/17 07/17/17 07/17/17 07/18/17 07/18/17 07/18/17 07:00 15:00 23:00 07:00 15:00 23:00 Intake Total 40 ml 120 ml 240 ml Output Total 14 ml 1000 ml 500 ml Balance 26 ml -880 ml -260 ml Intake Oral 40 ml 120 ml 240 ml Output Urine Total 1000 ml 500 ml Chest Tube Drainage Total 14 ml 0 ml # Voids 8 # Bowel Movements 0 Result Diagram: 07/18/1740707/18/17407 Objective Remarks GENERAL: Cachectic poorly kempt elderly male who is on NC, laying in bed with restraints secondary to confusion but follows commands and will answer questions. NECK: Trachea midline. No JVD. Well-healed previous trach incision CARDIOVASCULAR: Atrial fibrillation rate controlled. RESPIRATORY: Well-healed left thoracotomy scar. Right chest tubes x1 in place no air leak. GASTROINTESTINAL: Abdomen soft, non-distended. Well-healed vertical abdominal scar MUSCULOSKELETAL: No obvious deformities. Erythema over bilateral knee NEUROLOGICAL: Patient becoming more alert and asking LUCHO but will not answer any other questions. No focal deficits. Medications and IVs Current Medications Norepinephrine Bitartrate (Levophed Inj) 4 mg STK-MED ONCE .ROUTE ; Start 07/06 at 09:32; Stop 07/06/17 at 09:33; Status DC Sodium Chloride 1,000 ml @ 1,000 mls/hr Q1H ONCE IV Last administered on 07/06 11:03; Start 07/06/17 at 09:37; Stop 07/06/17 at 10:36; Status DC Sodium Chloride 1,000 ml @ 1,000 mls/hr Q1H ONCE IV Last administered on 07/06 11:04; Start 07/06/17 at 09:37; Stop 07/06/17 at 10:36; Status DC Sodium Chloride 400 ml @ 1,000 mls/hr Q24M ONCE IV Last administered on 11:21; Start 07/06/17 at 09:37; Stop 07/06/17 at 10:00; Status DC Norepinephrine Bitartrate 250 ml @ 7.5 mls/hr TITRATE PRN IV Maintain MAP > 65 Last administered on 07/06/17 11:05; Start 07/06/17 at 09:45; Stop at 14:40; Status DC Vasopressin 40 units/Dextrose 100 ml @ 6 mls/hr [id number] IV ; Start 07/06/17 at 09:37; Stop 07/06/17 at 21:59; Status DC Epinephrine HCl 2 mg/Dextrose 250 ml @ 22.5 mls/hr TITRATE PRN IV Maintain MAP > 65 mmHg; Start 07/06/17 at 09:45; Stop 07/07/17 at 12:00; Status DC Midazolam HCl 100 ml @ As Directed STK-MED ONCE .ROUTE ; Start 07/06/17 at 09: 53; Stop 07/06/17 at 09:54; Status DC Etomidate (Amidate Inj) 20 mg STK-MED ONCE .ROUTE ; Start 07/06/17 at 09:53; Stop 07/06/17 at 09:54; Status DC Succinylcholine Chloride (Quelicin Inj) 200 mg STK-MED ONCE .ROUTE ; Start at 09:53; Stop 07/06/17 at 09:54; Status DC Piperacillin Sod/ Tazobactam Sod 100 ml @ 200 mls/hr ONCE STAT IV Last administered on 07/06/17 11:22; Start 07/06/17 at 10:21; Stop 07/06/17 at 10 :50; Status DC Sodium Chloride 1,000 ml @ 150 mls/hr Q6H40M IV ; Start 07/06/17 at 11:00; Stop 07/06/17 at 12:13; Status DC Sodium Chloride (NS Flush) 2 ml UNSCH PRN IV FLUSH FLUSH AFTER USING IV ACCESS ; Start 07/06/17 at 10:30 Sodium Chloride (NS Flush) 2 ml BID IV FLUSH Last administered on 07/17/17 20 :50; Start 07/06/17 at 21:00 Albuterol/ Ipratropium (Duoneb Neb) 1 ampule Q6HR NEB NEB Last administered on 07/10/17 08:16; Start 07/06/17 at 10:30; Stop 07/10/17 at 10:29; Status DC Albuterol Sulfate (Albuterol Neb) 2.5 mg Q4HR NEB PRN INH SHORTNESS OF BREATH Last administered on 07/08/17 10:33; Start 07/06/17 at 12:00 Chlorhexidine Gluconate (Peridex 0.12% Liq) 15 ml BID@08,20 MT Last administered on 07/15/17 08:00; Start 07/06/17 at 20:00 Pantoprazole Sodium (Protonix Inj) 40 mg DAILY IV PUSH Last administered on 09:19; Start 07/06/17 at 11:00; Stop 07/10/17 at 12:45; Status DC Enoxaparin Sodium (Lovenox Inj) 30 mg Q24H SQ Last administered on 07/09/17 10:55; Start 07/06/17 at 11:30; Stop 07/13/17 at 15:48; Status DC Miscellaneous Information 1 Q361D XX ; Start 07/06/17 at 10:30 Chlorhexidine Gluconate (Chlorhexidine 2% Cloth) Taper DAILY@04 TOP Last administered on 07/17/17 06:21; Start 07/07/17 at 04:00; Stop 07/03/18 at 03 :59 Chlorhexidine Gluconate (Chlorhexidine 2% Cloth) 3 pack UNSCH PRN TOP HYGIENIC CARE; Start 07/06/17 at 10:30 Fentanyl Citrate 250 ml @ 5 mls/hr TITRATE PRN IV SEDATION; Start 07/06/17 at 11:30; Stop 07/08/17 at 08:21; Status DC Midazolam HCl 100 ml @ 2 mls/hr TITRATE PRN IV SEDATION Last administered on 18:06; Start 07/06/17 at 11:30; Stop 07/06/17 at 14:38; Status DC Metronidazole 100 ml @ 100 mls/hr Q8H IV Last administered on 07/13/17 12:23 ; Start 07/06/17 at 11:15; Stop 07/13/17 at 15:49; Status DC Cefepime HCl 1000 mg/Sodium Chloride 100 ml @ 200 mls/hr Q8H IV Last administered on 07/13/17 12:21; Start 07/06/17 at 11:30; Stop 07/13/17 at 15 :49; Status DC Pharmacy Profile Note 0 ml @ 0 mls/hr UNSCH OTHER ; Start 07/06/17 at 10:45; Status Cancel Etomidate (Amidate Inj) 20 mg ONCE ONCE IVP Last administered on 07/06/17 09 :55; Start 07/06/17 at 11:30; Stop 07/06/17 at 11:31; Status DC Succinylcholine Chloride (Quelicin Inj) 100 mg ONCE ONCE IV PUSH Last administered on 07/06/17 09:55; Start 07/06/17 at 11:30; Stop 07/06/17 at 11 :31; Status DC Midazolam HCl 100 ml @ 2 mls/hr TITRATE PRN IV SEDATION; Start 07/06/17 at 11: 30; Stop 07/06/17 at 14:39; Status DC Vancomycin HCl 1000 mg/Sodium Chloride 250 ml @ 250 mls/hr ONCE ONCE IV ; Start 07/06/17 at 13:00; Stop 07/06/17 at 13:59; Status DC Sodium Chloride 1,000 ml @ 999 mls/hr BOLUS ONCE IV ; Start 07/06/17 at 12:00 ; Stop 07/06/17 at 13:00; Status DC Sodium Chloride 1,000 ml @ 999 mls/hr BOLUS ONCE IV Last administered on 12:45; Start 07/06/17 at 12:15; Stop 07/06/17 at 13:15; Status DC Insulin Aspart (NovoLOG SUPPLEMENTAL SCALE) 1 Q4HR SQ Last administered on 23:42; Start 07/06/17 at 12:15 Sodium Bicarbonate 150 meq/Sterile Water 1,000 ml @ 150 mls/hr Q6H40M IV Last administered on 07/07/17 06:10; Start 07/06/17 at 13:00; Stop 07/07/17 at 09 :31; Status DC Sodium Bicarbonate (Sodium Bicarbonate 8.4% Inj) 100 meq ONCE ONCE IV PUSH ; Start 07/06/17 at 12:15; Stop 07/06/17 at 12:19; Status DC Methylprednisolone Sodium Succinate (SoluMEDROL INJ) 60 mg Q6HR IV PUSH Last administered on 07/08/17 03:45; Start 07/06/17 at 12:30; Stop 07/08/17 at 08 :21; Status DC Aspirin (Aspirin) 325 mg DAILY PO Last administered on 07/18/17 08:06; Start 07/07/17 at 09:00 Benztropine Mesylate (Cogentin) 2 mg DAILY PO Last administered on 07/18/17 08:05; Start 07/07/17 at 09:00 Ziprasidone (Geodon) 60 mg BID PO Last administered on 07/18/17 08:00; Start 07/06/17 at 21:00 Diltiazem HCl 125 mg/Sodium Chloride 125 ml @ 5 mls/hr TITRATE PRN IV Tachycardia Last administered on 07/07/17 06:11; Start 07/06/17 at 14:00; Stop 07/12/17 at 10:21; Status DC Norepinephrine Bitartrate 250 ml @ 37.5 mls/hr TITRATE PRN IV Maintain MAP > 65 mmHg Last administered on 07/07/17 18:31; Start 07/06/17 at 14:15; Stop 07/12/17 at 10:21; Status DC Midazolam HCl 100 ml @ 6 mls/hr TITRATE PRN IV SEDATION Last administered on 23:43; Start 07/06/17 at 14:15; Stop 07/08/17 at 08:21; Status DC Phenylephrine HCl 160 mg/Dextrose 500 ml @ 7.5 mls/hr TITRATE PRN IV Blood pressure management Last administered on 07/06/17 22:44; Start 07/06/17 at 22 :00; Stop 07/07/17 at 12:00; Status DC Terbutaline Sulfate (Brethine Inj) 1 mg UNSCH PRN SQ For Extravasation; Start 07/06/17 at 22:00 Vasopressin 40 units/Dextrose 100 ml @ 6 mls/hr [id number] IV ; Start 07/06/17 at 21:56; Stop 07/12/17 at 10:21; Status DC Vasopressin (Pitressin Inj) 20 units STK-MED ONCE .ROUTE ; Start 07/06/17 at 22 :02; Stop 07/06/17 at 22:03; Status DC Sodium Chloride 1,000 ml @ 75 mls/hr [id number] IV Last administered on 04:55; Start 07/07/17 at 09:45; Stop 07/08/17 at 10:38; Status DC Miscellaneous Information D/C ICU ELECTROLYTE ORDERS... UNSCH PRN .XX SEE DOSE INSTRUCTIONS; Start 07/08/17 at 05:45 Miscellaneous Information ICU - CALL ORDERING PHYSIC... UNSCH PRN .XX SEE DOSE INSTRUCTIONS; Start 07/08/17 at 05:45 Potassium Chloride 100 ml @ 25 mls/hr UNSCH PRN IV ELECTROLYTE REPLACEMENT; Start 07/08/17 at 05:45 Potassium Bicarb/ Potassium Chloride (K-Lyte Cl Eff) 50 meq UNSCH PRN PO ELECTROLYTE REPLACEMENT; Start 07/08/17 at 05:45 Potassium Chloride 100 ml @ 50 mls/hr UNSCH PRN IV ELECTROLYTE REPLACEMENT; Start 07/08/17 at 05:45 Magnesium Sulfate 4 gm/Sodium Chloride 108 ml @ 54 mls/hr UNSCH PRN IV ELECTROLYTE REPLACEMENT; Start 07/08/17 at 05:45 Magnesium Sulfate 2 gm/Sodium Chloride 104 ml @ 52 mls/hr UNSCH PRN IV ELECTROLYTE REPLACEMENT; Start 07/08/17 at 05:45 Magnesium Oxide (Mag-Ox) 800 mg UNSCH PRN PO ELECTROLYTE REPLACEMENT; Start at 05:45 Sodium Phosphate 30 mmol/Sodium Chloride 260 ml @ 43.333 mls/ hr UNSCH PRN IV ELECTROLYTE REPLACEMENT Last administered on 07/11/17 11:01; Start 07/08/17 at 05:45 Potassium Phosphate (K-Phos) 2,000 mg UNSCH PRN PO ELECTROLYTE REPLACEMENT; Start 07/08/17 at 05:45 Potassium Phosphate 30 mmol/ Sodium Chloride 260 ml @ 43.333 mls/ hr UNSCH PRN IV ELECTROLYTE REPLACEMENT Last administered on 07/08/17 06:23; Start at 05:45 Methylprednisolone Sodium Succinate (SoluMEDROL INJ) 40 mg Q8HR IV PUSH Last administered on 07/14/17 06:54; Start 07/08/17 at 14:00; Stop 07/14/17 at 12 :29; Status DC Vancomycin HCl 1250 mg/Sodium Chloride 262.5 ml @ 250 mls/hr ONCE ONCE IV ; Start 07/08/17 at 11:00; Stop 07/08/17 at 12:02; Status Cancel Potassium Chloride 20 meq/ Sodium Chloride 38.5 meq/Sterile Water 1,019.625 ml @ 100 mls/hr [id number] IV Last administered on 07/10/17 22:03; Start 07/08/17 at 13:00; Stop 07/11/17 at 09:20; Status DC Lidocaine HCl (Xylocaine 1% Inj (50 ml)) 50 ml STK-MED ONCE .ROUTE Last administered on 07/08/17 13:19; Start 07/08/17 at 13:19; Stop 07/08/17 at 13 :20; Status DC Pantoprazole Sodium 80 mg/ Sodium Chloride 100 ml @ 10 mls/hr Q10H IV Last administered on 07/10/17 12:26; Start 07/09/17 at 17:00; Stop 07/10/17 at 12 :09; Status DC Propofol 100 ml @ As Directed STK-MED ONCE .ROUTE ; Start 07/09/17 at 18:30; Stop 07/09/17 at 18:31; Status DC Miscellaneous Information ALL NURSING DEPARTME... UNSCH PRN .XX SEE LABEL COMMENTS; Start 07/09/17 at 19:30; Stop 07/10/17 at 19:29; Status DC Propofol 100 ml @ 1.755 mls/ hr TITRATE PRN IV Sedation Last administered on 07/10/17 05:05; Start 07/09/17 at 19:30; Stop 07/12/17 at 10:21; Status DC Pantoprazole Sodium (Protonix) 40 mg Q12HR PO Last administered on 07/18/17 08:06; Start 07/10/17 at 21:00 Haloperidol Lactate (Haldol Lactate Liq) 12.5 mg BID PO Last administered on 08:05; Start 07/11/17 at 21:00 Diltiazem HCl (Cardizem) 30 mg QID PO Last administered on 07/18/17 08:05; Start 07/11/17 at 13:00 Budesonide/ Formoterol Fumarate (Symbicort 160-4.5 Inh) 1 puff Q12HR INH Last administered on 07/18/17 08:04; Start 07/11/17 at 09:45 Tiotropium [place] (Spiriva Inh) 18 mcg DAILY INH Last administered on 09:00; Start 07/11/17 at 09:45; Stop 07/14/17 at 12:29; Status DC Albuterol/ Ipratropium (Duoneb Neb) 1 ampule QID NEB NEB Last administered on 07/15/17 11:15; Start 07/11/17 at 16:00; Stop 07/15/17 at 15:59; Status DC Phenylephrine HCl (Neosynephrine/ NS 1000 Mcg/10ml Syr) 2,000 mcg STK-MED ONCE IV ; Start 07/09/17 at 12:00; Stop 07/11/17 at 14:28; Status DC Ephedrine Sulfate (ePHEDrine/NS 25 MG/5 ML SYR) 25 mg STK-MED ONCE IV ; Start 07/09/17 at 12:00; Stop 07/11/17 at 14:28; Status DC Succinylcholine Chloride (Quelicin Inj) 100 mg STK-MED ONCE IV PUSH ; Start at 12:00; Stop 07/11/17 at 14:28; Status DC Dexamethasone Sodium Phosphate (Decadron Inj) 4 mg STK-MED ONCE IV ; Start at 12:00; Stop 07/11/17 at 14:28; Status DC Ondansetron HCl (Zofran Inj) 4 mg STK-MED ONCE IV ; Start 07/09/17 at 12:00; Stop 07/11/17 at 14:28; Status DC Propofol (Diprivan 200 Mg/20 ml Inj) 400 mg STK-MED ONCE IV ; Start 07/09/17 at 12:00; Stop 07/11/17 at 14:28; Status DC Sterile Water (Sterile Water For Injection) 20 ml STK-MED ONCE .XX ; Start at 12:00; Stop 07/11/17 at 14:28; Status DC Sodium Chloride (Sodium Chloride 0.9% Inj) 20 ml STK-MED ONCE IV ; Start at 12:00; Stop 07/11/17 at 14:28; Status DC Midazolam HCl (Versed Inj) 5 mg ONCE ONCE IV PUSH Last administered on 09:31; Start 07/12/17 at 10:00; Stop 07/12/17 at 10:01; Status DC Fentanyl Citrate (fentaNYL INJ) 100 mcg ONCE ONCE IV PUSH Last administered on 07/12/17 09:31; Start 07/12/17 at 10:00; Stop 07/12/17 at 10:01; Status DC Enoxaparin Sodium (Lovenox Inj) 40 mg Q24H SQ Last administered on 07/17/17 13:21; Start 07/14/17 at 12:00 Ceftriaxone Sodium 2000 mg/ Sodium Chloride 100 ml @ 200 mls/hr Q24H IV Last administered on 07/14/17 18:44; Start 07/13/17 at 16:00; Stop 07/15/17 at 14 :36; Status DC Iohexol (Omnipaque 350 Inj) 78 ml STK-MED ONCE IVCONTRAST Last administered on 07/13/17 18:20; Start 07/13/17 at 18:20; Stop 07/13/17 at 18:21; Status DC Methylprednisolone Sodium Succinate (SoluMEDROL INJ) 40 mg BID IV PUSH ; Start 07/14/17 at 21:00; Stop 07/14/17 at 21:00; Status DC Methylprednisolone Sodium Succinate (SoluMEDROL INJ) 20 mg BID IV PUSH Last administered on 07/15/17 09:01; Start 07/14/17 at 21:00; Stop 07/15/17 at 12 :59; Status DC Folic Acid (Folate) 1 mg DAILY PO Last administered on 07/17/17 07:57; Start 07/16/17 at 09:00; Stop 07/17/17 at 09:27; Status DC Thiamine HCl (Vitamin B1) 100 mg DAILY PO Last administered on 07/17/17 07:56 ; Start 07/16/17 at 09:00; Stop 07/17/17 at 09:27; Status DC Multivitamins/ Minerals Therapeutic (Theragran M Tab) 1 tab DAILY PO Last administered on 07/17/17 07:57; Start 07/16/17 at 09:00; Stop 07/17/17 at 09 :27; Status DC Flumazenil (Romazicon Inj) 0.2 mg Q1M PRN IV PUSH SEE LABEL COMMENTS; Start at 12:15; Stop 07/17/17 at 09:27; Status DC Lorazepam (Ativan) 1 mg Q4H PRN PO CIWA 8 - 10 Last administered on 07/17/17 00:56; Start 07/15/17 at 12:15; Stop 07/17/17 at 09:27; Status DC Lorazepam (Ativan Inj) 1 mg Q4H PRN IV PUSH CIWA 8 - 10; Start 07/15/17 at 12: 15; Stop 07/17/17 at 09:27; Status DC Lorazepam (Ativan) 2 mg Q2H PRN PO CIWA 11-14 Last administered on 07/17/17 03:09; Start 07/15/17 at 12:15; Stop 07/17/17 at 09:27; Status DC Lorazepam (Ativan Inj) 2 mg Q2H PRN IV PUSH CIWA 11-14 Last administered on 15:29; Start 07/15/17 at 12:15; Stop 07/17/17 at 09:27; Status DC Lorazepam (Ativan Inj) 2 mg Q1H PRN IV PUSH CIWA 15-20; Start 07/15/17 at 12: 15; Stop 07/17/17 at 09:27; Status DC Lorazepam (Ativan Inj) 2 mg Q15M PRN IV PUSH CIWA > 20; Start 07/15/17 at 12: 15; Stop 07/17/17 at 09:27; Status DC Prednisone (Deltasone) 10 mg BID PO Last administered on 07/18/17 08:05; Start 07/15/17 at 21:00 Amoxicillin/ Clavulanate Potassium (Augmentin) 875 mg Q12HR PO Last administered on 07/18/17 08:00; Start 07/15/17 at 21:00 Dextrose (D50w (Syr) Inj) 50 ml STK-MED ONCE .ROUTE Last administered on 01:29; Start 07/17/17 at 01:29; Stop 07/17/17 at 01:30; Status DC Dextrose (D50w (Syr) Inj) 50 ml STK-MED ONCE .ROUTE ; Start 07/17/17 at 01:31; Stop 07/17/17 at 01:32; Status DC Dextrose (D50w (Vial) Inj) 50 ml UNSCH PRN IV PUSH HYPOGLYCEMIA - SEE COMMENTS ; Start 07/17/17 at 02:00 Glucagon (Glucagon Inj) 1 mg UNSCH PRN OTHER HYPOGLYCEMIA-SEE COMMENTS; Start 07/17/17 at 02:00 A/P Problem List: (1) Septic shock ICD Code: A41.9 - Sepsis, unspecified organism; R65.21 - Severe sepsis with septic shock (2) Acute metabolic encephalopathy ICD Code: G93.41 - Metabolic encephalopathy (3) Acute kidney failure ICD Code: N17.9 - Acute kidney failure, unspecified (4) Severe dehydration ICD Code: E86.0 - Dehydration (5) Lactic acidemia ICD Code: E87.2 - Acidosis (6) Metabolic acidemia ICD Code: E87.2 - Acidosis (7) Atrial fibrillation with rapid ventricular response ICD Code: I48.91 - Unspecified atrial fibrillation (8) UTI (urinary tract infection) ICD Code: N39.0 - Urinary tract infection, site not specified Status: Acute (9) Hyperglycemia ICD Code: R73.9 - Hyperglycemia, unspecified (10) Schizophrenia ICD Code: F20.9 - Schizophrenia, unspecified Status: Acute (11) COPD (chronic obstructive pulmonary disease) ICD Code: J44.9 - Chronic obstructive pulmonary disease Status: Chronic (12) A-fib ICD Code: I48.91 - Atrial fibrillation Status: Chronic (13) DM (diabetes mellitus) ICD Code: E11.9 - Diabetes mellitus Status: Chronic Assessment and Plan This is a 66-year-old male presented from the detention with altered mental status found to be septic Acute metabolic encephalopathy -Most likely secondary to metabolic encephalopathy. -Initially resolved once underlining etiology was treated. Then patient became lethargic due to Ativan use. On Ativan was discontinued patient was back to his baseline. He does have intermittent episodes where he becomes agitated Geodon and Haldol does work. - CT of the head negative for acute findings Acute respiratory failure/COPD with exacerbation /Right-sided pneumothorax, persistent/hemoptysis - Status post extubated twice. CT scan of chest shows no mass. -Ignition Specialist consulted and following. - DuoNeb every 6 hours and when necessary. Per refrigerating machine operator segmental is being discontinued. - Continue Symbicort, Spiriva - CXR 07/12 expanding right apical pneumothorax- new 10F pigtail place -Patient one of the chest tube out and chest x-ray repeated showed a small apical pneumothorax. -Being managed by refrigerating machine operator. - Sputum culture-MSSA. Status post Rocephin. Patient currently on Augmentin. -Chest x-ray on 07/17 showed a Small left lateral pneumothorax measuring 8 mm. -On 07/18 chest x-ray is clear. -Chest 2 management per refrigerating machine operator. Septic shock - resolved. -Secondary to UTI MSSA pneumonia -Status post pressors. Now off of pressors. - s/p Normal saline IV fluids 4L bolus on admission. Off all IVF - Remains off pressors - 2d echo EF 55-60%. Continue aspirin. -Status post Rocephin on 07/11 for now on Augmentin. Status post vancomycin, cefepime and Flagyl. A. fib with RVR - rate controlled. -On Cardizem. -Not a candidate for long-term anticoagulation, continue Aspirin Long segment Rodarte's Esophagus Hematemesis- resolved. - Diet per GI. IV Protonix - Advance diet per GI. GI signed off. Acute kidney failure - improving. - Acute kidney failure is most likely from severe dehydration, creat improved - IV to KVO Monitor renal function closely. No Avery indicated - Nephrology following Urothelial cancer - Further recommendations regarding urothelial cancer by oncology and urology Hyperglycemia, type 2 diabetes - Sliding-scale with NovoLog .History of schizophrenia - Continue Geodon and benztropine. resumed Haldol 07/11/17 -He continues to be agitated and requires restraint. Will consult psychiatrist to see if they can help with agitation. PROPH: Bilateral lower extremity SCDs. resumed lovenox 07/13. IV Protonix Discharge Planning Will need to consult psychiatrist to assist with agitation so that patient can be off restraint. His agitation seems to be more due to his underlying psychiatric disorder. Patient is stable to be transferred out of the [facility]. Discussed with patient's nurse. Problem Qualifiers (1) Acute kidney failure: Qualified Codes: N17.9 - Acute kidney failure, unspecified (2) DM (diabetes mellitus): Melissa Buenrostro MD Jul 18, 2017 10:08
--- NOTE | 2017-07-18 12:15 | PD.PSY.CON ---
Provisional Diagnosis Admission Date Jul 06, 2017 at 11:21 [place] I. Delirium due to underlying medical conditions, schizoaffective disorder, bipolar type, dementia [place] II. Deferred [place] III. COPD, type 2 diabetes, hypertension, dyslipidemia, chronic atrial fibrillation [place] IV. Multiple chronic medical and mental conditions [place] V. 40 History of Present Illness Service Psychiatry Consult Requested By Critical care team Reason for Consult Psychosis Primary Care Physician [facility] HPI The patient is a 66-year-old man, domiciled in a intermediate, known by the psychiatric service, psychiatric history of schizophrenia, schizoaffective disorder, dementia with behavioral disturbances, multiple psychiatric hospitalizations, previous suicidal attempts, last hospitalization was here in [place], he was discharged in May 12, he was under the care of Dr. Lagunas, documentation review, patient is on Geodon 60 mg twice a day, Haldol 12.5 mg twice a day, benztropine 2 mg twice a day, he has medical history of COPD, type 2 diabetes, hypertension, dyslipidemia, chronic atrial fibrillation. He apparently developed altered mentation, decreased level of consciousness while at the breakfast table in his NH. He passed out while eating breakfast, had been having syncopal episodes recently. Initial blood pressure systolic was in the 50s and patient was aggressively resuscitated in the ED and being intubated. patient was admitted in the ICU due to sepsis, acute metabolic encephalopathy, COPD exacerbation. Patient was consulted to psychiatry due to aggressive behavior in the floor and also psychosis. Patient was seen by me for psychiatric evaluation in the ICU. HE was about to be transferred to the medical floor after extubation. Patient is restrained in 2 points, very sedated. Minimally responsive to my questions. He does say that he feels better. Patient is partially oriented, he knows that he is in the hospital, he doesn't know the name of the hospital, he is disoriented in time. As I'm talking with the patient, he keeps falling asleep. As a conversation with nurse and discharged patient was giving ETO before due to agitation in the ICU. Patient apparently has been difficult to handle, disorganized, agitated, but he has been compliant with medications and medical recommendations. Review of Systems Constitutional: DENIES: Diaphoretic episodes, Fatigue, Fever, Weight gain, Weight loss, Chills, Dizziness, Change in appetite, Night Sweats Endocrine: DENIES: Heat/cold intolerance, Polydipsia, Polyuria, Polyphagia Eyes: DENIES: Blurred vision, Diplopia, Eye inflammation, Eye pain, Vision loss , Photosensitivity, Double Vision Ears, nose, mouth, throat: DENIES: Tinnitus, Hearing loss, Vertigo, Nasal discharge, Oral lesions, Throat pain, Hoarseness, Ear Pain, Running Nose, Epistaxis, Sinus Pain, Toothache, Odynophagia Respiratory: DENIES: Apneas, Cough, Snoring, Wheezing, Hemoptysis, Sputum production, Shortness of breath Cardiovascular: DENIES: Chest pain, Palpitations, Syncope, Dyspnea on Exertion , PND, Lower Extremity Edema, Orthopnea, Claudication Gastrointestinal: DENIES: Abdominal pain, Black stools, Bloody stools, Constipation, Diarrhea, Nausea, Vomiting, Difficulty Swallowing, Anorexia Genitourinary: DENIES: Sexual dysfunction, Urinary frequency, Urinary incontinence, Urgency, Hematuria, Dysuria, Nocturia, Penile Discharge, Testicular Pain, Testicular Swelling Integumentary: DENIES: Abnormal pigmentation, Nail changes, Pruritus, Rash Hematologic/lymphatic: DENIES: Bruising, Lymphadenopathy Immunologic/allergic: DENIES: Eczema, Urticaria Neurologic: DENIES: Abnormal gait, Headache, Localized weakness, Paresthesias, Seizures, Speech Problems, Tremor, Poor Balance Psychiatric: DENIES: Anxiety, Confusion, Mood changes, Depression, Hallucinations, Agitation, Suicidal Ideation, Homicidal Ideation, Delusions Past Family Social History Coded Allergies: calamine (Unverified Allergy, Severe, Rash, 07/06/17) olanzapine (Unverified Adverse Reaction, Severe, THROMBOCYTOPENIA, ) Active Scripts Haloperidol Inj (Haloperidol Inj) 5 Mg/Ml Inj, 1 ML IM up to BID, PRN for Agitation for 30 Days, #1 BOTTLE 0 Refills Prov:Suzanne Beedylg Basilioa SENIOR BILLING CONSULTANT 06/14/17 Reported Medications Ziprasidone (Geodon) 60 Mg Cap, 60 MG PO BID, #60 CAP 0 Refills 06/13/17 Metformin (Metformin) 1,000 Mg Tab, 1000 MG PO DAILY for Blood Sugar Management , #30 TAB 0 Refills With a meal 06/13/17 Haloperidol Liq (Haloperidol Liq) 2 Mg/Ml Conc, 12.5 MG PO BID, ML 0 Refills 06/13/17 Benztropine (Benztropine) 0.5 Mg Tab, 2 MG PO DAILY, #30 TAB 0 Refills 06/13/17 Aspirin (Aspirin) 325 Mg Tab, 325 MG PO DAILY, #30 TAB 0 Refills 06/13/17 Current Medications Medications (Trade) Dose Ordered Sig/Ashanti Route Start Time Stop Time Status Last Admin (NS Flush) 2 ml UNSCH PRN IV FLUSH 07/06/17 10:30 (NS Flush) 2 ml BID IV FLUSH 07/06/17 21:00 07/17/17 20:50 (Albuterol Neb) 2.5 mg Q4HR NEB PRN INH 07/06/17 12:00 07/08/17 10:33 (Peridex 0.12% Liq) 15 ml BID@08,20 MT 07/06/17 20:00 07/15/17 08:00 Miscellaneous Information 1 Q361D XX 07/06/17 10:30 (Chlorhexidine 2% Cloth) Taper DAILY@04 TOP 07/07/17 04:00 07/03/18 03:59 07/17/17 06:21 (Chlorhexidine 2% Cloth) 3 pack UNSCH PRN TOP 07/06/17 10:30 (Aspirin) 325 mg DAILY PO 07/07/17 09:00 07/18/17 08:06 (Cogentin) 2 mg DAILY PO 07/07/17 09:00 07/18/17 08:05 (Geodon) 60 mg BID PO 07/06/17 21:00 07/18/17 08:00 (Brethine Inj) 1 mg UNSCH PRN SQ 07/06/17 22:00 Miscellaneous Information D/C ICU ELECTROLYTE ORDERS... UNSCH PRN .XX 07/08/17 05:45 Miscellaneous Information ICU - CALL ORDERING PHYSIC... UNSCH PRN .XX 07/08/17 05:45 Potassium Chloride 100 ml @ 25 mls/hr UNSCH PRN IV 07/08/17 05:45 (K-Lyte Cl Eff) 50 meq UNSCH PRN PO 07/08/17 05:45 Potassium Chloride 100 ml @ 50 mls/hr UNSCH PRN IV 07/08/17 05:45 Magnesium Sulfate 4 gm/Sodium Chloride 108 ml @ 54 mls/hr UNSCH PRN IV 07/08/17 05:45 Magnesium Sulfate 2 gm/Sodium Chloride 104 ml @ 52 mls/hr UNSCH PRN IV 07/08/17 05:45 (Mag-Ox) 800 mg UNSCH PRN PO 07/08/17 05:45 Sodium Phosphate 30 mmol/Sodium Chloride 260 ml @ 43.333 mls/ hr UNSCH PRN IV 07/08/17 05:45 07/11/17 11:01 (K-Phos) 2,000 mg UNSCH PRN PO 07/08/17 05:45 Potassium Phosphate 30 mmol/ Sodium Chloride 260 ml @ 43.333 mls/ hr UNSCH PRN IV 07/08/17 05:45 07/08/17 06:23 (Protonix) 40 mg Q12HR PO 07/10/17 21:00 07/18/17 08:06 (Haldol Lactate Liq) 12.5 mg BID PO 07/11/17 21:00 07/18/17 08:05 (Cardizem) 30 mg QID PO 07/11/17 13:00 07/18/17 08:05 (Symbicort 160-4.5 Inh) 1 puff Q12HR INH 07/11/17 09:45 07/18/17 08:04 (Lovenox Inj) 40 mg Q24H SQ 07/14/17 12:00 07/17/17 13:21 (Deltasone) 10 mg BID PO 07/15/17 21:00 07/18/17 08:05 (Augmentin) 875 mg Q12HR PO 07/15/17 21:00 07/18/17 08:00 Social History Patient is domicile in a intermediate. Patient's Strengths (min. 2) He lives in in a structured environment, compliant with psychotropics. Physical Exam Vital Signs Vital Signs Date Time Temp Pulse Resp B/P (MAP) Pulse Ox O2 Delivery O2 Flow Rate FiO2 07/18/17 10:00 80 07/18/17 08:00 98.4 24 119/72 (88) 96 07/17/17 21:25 Nasal Cannula 2.00 07/15/17 07:58 21 I/O 07/18/17 07/18/17 07/19/17 08:00 16:00 00:00 Intake Total 240 ml Output Total 500 ml Balance -260 ml Lab Results Test 07/18/17 04:08 White Blood Count 7.9 TH/MM3 Red Blood Count 3.47 MIL/MM3 Hemoglobin 11.0 GM/DL Hematocrit 32.1 % Mean Corpuscular Volume 92.4 FL Mean Corpuscular Hemoglobin 31.8 PG Mean Corpuscular Hemoglobin Concent 34.4 % Red Cell Distribution Width 13.8 % Platelet Count 225 TH/MM3 Mean Platelet Volume 7.0 FL Blood Urea Nitrogen 15 MG/DL Creatinine 0.46 MG/DL Random Glucose 128 MG/DL Calcium Level 8.9 MG/DL Sodium Level 139 MEQ/L Potassium Level 3.9 MEQ/L Chloride Level 104 MEQ/L Carbon Dioxide Level 24.0 MEQ/L Anion Gap 11 MEQ/L Estimat Glomerular Filtration Rate 183 ML/MIN Date/Time Source Procedure Growth Status 07/06/17 09:45 Blood Peripheral Aerobic Blood Culture - Final NO GROWTH IN 5 DAYS Complete 07/06/17 09:45 Blood Peripheral Anaerobic Blood Culture - Final NO GROWTH IN 5 DAYS Complete 07/09/17 01:00 Sputum Endotracheal Gram Stain - Final Complete 07/09/17 01:00 Sputum Culture - Final Staphylococcus Aureus Complete 07/06/17 09:45 Urine Catheterized Urine Urine Culture - Final Klebsiella Pneumoniae Complete Mental Status Examination Appearance: Appropriate Consciousness: Lethargic Orientation: Person, Place Motor Activity: Abnormal gait Speech: Slow, Incoherent Language: Adequate Fund of Knowledge: Inadequate Attention and Concentration: Inadequate Memory: Impaired Mood: Appropriate Affect: Irritable Thought Process & Associations: Loose associations Hallucination Type: None Delusion Type: None Suicidal Ideation: No Suicidal Plan: No Suicidal Intention: No Homicidal Ideation: No Homicidal Plan: No Homicidal Intention: No Insight: Poor Judgment: Poor Assessment & Plan Problem List: (1) Schizoaffective disorder, bipolar type ICD Codes: F25.0 - Schizoaffective disorder, bipolar type Status: Acute Assessment & Plan: On psychiatric evaluation patient presents minimally responsive, lethargic, answering briefly to questions, he seems to be confused, his just oriented in person and partially in place. Does report that he feels well, described his mood as good, does denies suicidal and homicidal ideation, visual and auditory hallucinations. Patient has been reportedly agitated, restless, disorganized needing ETO's. Current presentation seems to be related with delirium most probably secondary to multiple factors such as metabolic or normalities, ICU, recent intubation, sepsis, anticholinergic and steroids for COPD. Patient needs to continue aggressive medical stabilization. I will decrease current psychotropic regimen, Haldol to 5 mg bid and Geodon to 40 bid until altered mental status returned to baseline, will discontinue Benztropine to avoid worsening of mental status. Will add Haldol 5 mg every 8 hours when necessary aggressive behavior and agitation. Please, try to avoid delirioigenic drugs narcotics/disoriented/anticholinergics/steroids as much as possible. Frequent sensory stimulation reorientation, familiar faces around the bed, appropriate lights in the room, visible clock and calendar in the room usually very important to avoid confusion and delirium. The patient might benefit of a psychiatric admission for stabilization vision of psychotropic regimen. But, in the medical floor we'll continue follow-up. During the weekend Dr. Chaudhari is the psychiatrist to be contacted. Assessment & Plan Estimated LOS: days Kyler Mcelroy MD Jul 18, 2017 12:15
[2017-07-18] MEDS: ENOXAPARIN SODIUM 30 MG/0.3 ML SYRINGE SQ SCH (12:39)
[2017-07-18] MEDS: HALOPERIDOL LACTATE 5 MG/ML AMP IM PRN (16:35)
--- NOTE | 2017-07-18 18:30 | HHI.PR ---
Subjective Remarks Alert and seems calmer. Chest tube is not draining or having air leak. No Pneumothorax. on CXR Objective Vital Signs Date Time Temp Pulse Resp B/P (MAP) Pulse Ox O2 Delivery O2 Flow Rate FiO2 07/18/17 16:00 97.0 75 18 116/64 (81) 97 07/18/17 12:00 97.2 64 20 122/58 (79) 100 07/18/17 10:00 80 07/18/17 08:00 98.4 88 24 119/72 (88) 96 07/18/17 08:00 80 07/18/17 06:00 90 07/18/17 04:00 98.4 80 15 125/70 (88) 100 07/18/17 04:00 92 07/18/17 02:00 97 07/18/17 00:00 97 07/18/17 00:00 98.8 97 28 97/74 (82) 98 07/17/17 22:00 92 07/17/17 21:25 99 Nasal Cannula 2.00 07/17/17 20:00 98.3 101 28 122/60 (80) 98 07/17/17 20:00 101 I/O 07/17/17 07/17/17 07/17/17 07/18/17 07/18/17 07/18/17 07:00 15:00 23:00 07:00 15:00 23:00 Intake Total 40 ml 120 ml 240 ml Output Total 14 ml 1000 ml 500 ml 800 ml Balance 26 ml -880 ml -260 ml -800 ml Intake Oral 40 ml 120 ml 240 ml Output Urine Total 1000 ml 500 ml 800 ml Chest Tube Drainage Total 14 ml 0 ml # Voids 8 # Bowel Movements 0 0 Result Diagram: 07/18/178 07/18/17 040 Objective Remarks This averagely built middle-aged man is alert . HEENT: Head normocephalic. Pupils reactive. Tongue is moist. Throat is clear. Nasal mucosa is clear. NECK: Supple. No bruits or thyroid enlargement. CHEST: Distant breath sounds and wheezes were scattered in the upper lung khan.No crackles. HEART: The heart were irregular S1-S2. No murmur. ABDOMEN: Soft and protuberant. No tenderness. Bowel sounds are active. No organomegaly. EXTREMITIES: No edema. Peripheral pulses are well felt. The patient does move all of his extremities with no gross motor deficits. NEUROLOGIC: Alert and confused. SKIN: No lesions are noted. Assessment and Plan Assessment and Plan IMPRESSION 1. Septic shock, resolved 2. Right pneumothorax 3. COPD 4. Hemoptysis 5. Chronic atrial fibrillation 6. Hyperlipidemia and hypertension 7. Paranoid schizophrenia 8. Bladder Cancer. Plan : 1. D/C Chest tube today 2. Chest Xray in am. 3. Duonebs qid. 4. O2 2 L PRN. 5. D/C Antibiotics 6. Soft diet. 7.PT evaluation 8. To rehab soon Ursula Reed MD Jul 18, 2017 18:30
[2017-07-19 00:28] VITALS: BP 112/62; PULSE 72; RESP 17; TEMP 96.4; O2SAT 96
[2017-07-19] MEDS: HALOPERIDOL LACTATE 5 MG/ML AMP IM PRN (01:05)
[2017-07-19] MEDS: CHLORHEXIDINE GLUCONATE 2 % 1 PACK (2 CLOTHS) TOP SCH (04:00)
--- NOTE | 2017-07-19 05:55 | RADRPT ---
EXAM DATE/TIME: 07/19/2017 05:53 [place] COMPARISON: CHEST SINGLE AP, July 18, 2017, 4:14. INDICATIONS : Pneumothorax. MEDICAL HISTORY : Hypertension. Cardiovascular disease SURGICAL HISTORY : None. ENCOUNTER: Subsequent ACUITY: 2 weeks PAIN SCORE: Non-responsive. LOCATION: Bilateral chest FINDINGS: Right chest tube has been removed. No pneumothorax seen. Persistent right chest wall emphysema. Fibroemphysematous changes are again noted. No acute infiltrate seen. No pleural effusion. Heart size stable, thin normal limits. CONCLUSION: Right chest tube out. No pneumothorax seen. Ravi Head MD on July 19, 2017 at 5:52 Board Certified Radiologist. This report was verified electronically.
[2017-07-19 08:00] VITALS: BP 103/67; PULSE 75; RESP 20; TEMP 97.9; O2SAT 98
[2017-07-19 08:42] LABS: HEMATOCRIT 31.1 % (39.0-51.0); MEAN CELL VOLUME 93.5 FL (80.0-100.0); MEAN CORPUSCULAR HEMOGLOBIN 31.3 PG (27.0-34.0); MEAN CORPUSCULAR HGB CONC 33.4 % (32.0-36.0); PLATELET COUNT 207 TH/MM3 (150-450); RED BLOOD COUNT 3.32 MIL/MM3 (4.50-5.90); RED CELL DISTRIBUTION WIDTH 13.8 % (11.6-17.2); REVIEW FLAG FINAL; WHITE BLOOD COUNT 5.8 TH/MM3 (4.0-11.0)
[2017-07-19 09:19] LABS: BICARBONATE 28.1 MEQ/L (21.0-32.0); POTASSIUM 3.8 MEQ/L (3.5-5.1)
[2017-07-19] MEDS: BUDESONIDE-FORMOTEROL 160/4.5 MCG INHALER INH SCH ×2 (09:20→22:19)
[2017-07-19] MEDS: SODIUM CHLORIDE 0.9% FLUSH 10 ML FLUSH IV FLUSH SCH ×2 (09:20→22:10)
[2017-07-19] MEDS: CHLORHEXIDINE 0.12% (ORAL KIT) 15 ML CUP MT SCH ×2 (09:20→20:00)
[2017-07-19] MEDS: ASPIRIN 325 MG TAB PO SCH (09:24)
[2017-07-19] MEDS: ZIPRASIDONE HCL 60 MG CAP PO SCH ×2 (09:25→21:00)
[2017-07-19] MEDS: AMOXICILLIN/CLAVULANATE K 875 MG TAB PO SCH ×2 (09:25→22:10)
[2017-07-19] MEDS: DILTIAZEM HCL 30 MG TAB PO SCH ×4 (09:25→22:10)
[2017-07-19] MEDS: predniSONE 10 MG TAB PO SCH ×2 (09:25→22:10)
[2017-07-19] MEDS: HALOPERIDOL LACTATE ORAL CONC 10 MG/5 ML CUP PO SCH ×2 (09:26→22:10)
[2017-07-19] MEDS: PANTOPRAZOLE SOD 40 MG DELAYED RELEASE TAB PO SCH ×2 (09:26→22:10)
[2017-07-19] MEDS ORDERED: GLUCAGON 1 MG/ML VIAL OTHER PRN (10:00)
[2017-07-19] MEDS ORDERED: DEXTROSE 50% IN WATER 50 ML VIAL(D50) IV PUSH PRN (10:00)
--- NOTE | 2017-07-19 10:25 | HHI.PR ---
Subjective Remarks No acute events overnight. Afebrile, VSS. Requiring 2L NC. No complaints at this time. Remains in restraints. Objective Vitals Vital Signs Date Time Temp Pulse Resp B/P (MAP) Pulse Ox O2 Delivery O2 Flow Rate FiO2 07/19/17 04:00 Nasal Cannula 2.00 07/19/17 00:28 96.4 72 17 112/62 (79) 96 07/19/17 00:00 Nasal Cannula 2.00 07/18/17 20:58 97.2 75 17 115/62 (79) 07/18/17 20:00 Nasal Cannula 2.00 07/18/17 16:00 97.0 75 18 116/64 (81) 97 07/18/17 12:00 97.2 64 20 122/58 (79) 100 I/O 07/18/17 07/18/17 07/18/17 07/19/17 07/19/17 07/19/17 07:00 15:00 23:00 07:00 15:00 23:00 Intake Total 240 ml Output Total 500 ml 1050 ml 175 ml Balance -260 ml -1050 ml -175 ml Intake Oral 240 ml Output Urine Total 500 ml 1050 ml 175 ml Chest Tube Drainage Total 0 ml # Bowel Movements 0 0 Result Diagram: 07/19/17 0650 07/19/17 0650 Objective Remarks GENERAL: Cachectic poorly kempt elderly male, laying in bed with restraints secondary to confusion but follows commands and will answer questions. NECK: Trachea midline. No JVD. Well-healed previous trach incision CARDIOVASCULAR: Atrial fibrillation rate controlled. RESPIRATORY: Well-healed left thoracotomy scar. CT removed yesterday. GASTROINTESTINAL: Abdomen soft, non-distended. Well-healed vertical abdominal scar MUSCULOSKELETAL: No obvious deformities. Erythema over bilateral knee NEUROLOGICAL: Alert to self only. No focal deficits. A/P Problem List: (1) Septic shock ICD Code: A41.9 - Sepsis, unspecified organism; R65.21 - Severe sepsis with septic shock (2) Acute metabolic encephalopathy ICD Code: G93.41 - Metabolic encephalopathy (3) Acute kidney failure ICD Code: N17.9 - Acute kidney failure, unspecified (4) Severe dehydration ICD Code: E86.0 - Dehydration (5) Lactic acidemia ICD Code: E87.2 - Acidosis (6) Metabolic acidemia ICD Code: E87.2 - Acidosis (7) Atrial fibrillation with rapid ventricular response ICD Code: I48.91 - Unspecified atrial fibrillation (8) UTI (urinary tract infection) ICD Code: N39.0 - Urinary tract infection, site not specified Status: Acute (9) Hyperglycemia ICD Code: R73.9 - Hyperglycemia, unspecified (10) Schizophrenia ICD Code: F20.9 - Schizophrenia, unspecified Status: Acute (11) COPD (chronic obstructive pulmonary disease) ICD Code: J44.9 - Chronic obstructive pulmonary disease Status: Chronic (12) A-fib ICD Code: I48.91 - Atrial fibrillation Status: Chronic (13) DM (diabetes mellitus) ICD Code: E11.9 - Diabetes mellitus Status: Chronic Assessment and Plan This is a 66-year-old male presented from the [facility] with altered mental status found to be septic Acute metabolic encephalopathy -Most likely secondary to metabolic encephalopathy. -Initially resolved once underlining etiology was treated. Then patient became lethargic due to Ativan use. On Ativan was discontinued patient was back to his baseline. He does have intermittent episodes where he becomes agitated Gloria does work. - CT of the head negative for acute findings - Psychiatry consulted, adjusted medications. Feels that patient may benefit from inpatient psych care once medically cleared. Acute respiratory failure/COPD with exacerbation /Right-sided pneumothorax, persistent/hemoptysis - Status post extubated twice. CT scan of chest shows no mass. -[employer]er consulted and following. - DuoNeb every 6 hours and when necessary. - Continue Symbicort, Spiriva - Patient with persistent pneumothorax, no s/p CT and pigtail removal - no PNX per CXR today - Sputum culture-MSSA. Status post Rocephin. Patient currently on Augmentin. Septic shock - resolved. -Secondary to UTI MSSA pneumonia - Status post pressors. Now off of pressors. - 2d echo EF 55-60%. Continue aspirin. - Status post Rocephin on 07/11 for now on Augmentin. Status post vancomycin, cefepime and Flagyl. A. fib with RVR - rate controlled. - On Cardizem. - Not a candidate for long-term anticoagulation, continue Aspirin Long segment Rodarte's Esophagus Hematemesis- resolved. - Diet per GI. IV Protonix - Advance diet per GI. GI signed off. Acute kidney failure - improving. - Acute kidney failure is most likely from severe dehydration, creat improved - IV to KVO Monitor renal function closely. No Avery indicated - Nephrology following Urothelial cancer - Patient needs repeat cystoscopy and resection of bladder tumor, can be done as outpatient - Will need to hold ASA x 7 days prior to procedure Hyperglycemia, type 2 diabetes - Sliding-scale with NovoLog .History of schizophrenia - Psychotropics per psychiatry - Continues to require restraints - May benefit from inpatient psych stay once medically cleared PROPH: Bilateral lower extremity SCDs. resumed lovenox 07/13. IV Protonix Problem Qualifiers (1) Acute kidney failure: Qualified Codes: N17.9 - Acute kidney failure, unspecified (2) DM (diabetes mellitus): Fernanda Momin MD Jul 19, 2017 10:25
[2017-07-19 12:00] VITALS: BP 108/58; PULSE 68; RESP 20; TEMP 97; O2SAT 97
[2017-07-19] MEDS: INSULIN ASPART SUPPLEMENTAL SCALE SQ SCH ×3 (13:59→21:00)
[2017-07-19] MEDS: ENOXAPARIN SODIUM 30 MG/0.3 ML SYRINGE SQ SCH (13:59)
[2017-07-19 16:00] VITALS: BP 108/62; PULSE 88; RESP 18; TEMP 97; O2SAT 92
[2017-07-19 20:00] VITALS: BP 116/57; PULSE 70; RESP 20; TEMP 97.5; O2SAT 98
[2017-07-20] VITALS: BP 105/61; PULSE 80; RESP 20; TEMP 97.8; O2SAT 96
[2017-07-20 04:00] VITALS: BP 114/58; PULSE 84; RESP 20; TEMP 97.3; O2SAT 96
[2017-07-20] MEDS: CHLORHEXIDINE GLUCONATE 2 % 1 PACK (2 CLOTHS) TOP SCH (04:00)
[2017-07-20 04:47] LABS: HEMATOCRIT 30.1 % (39.0-51.0); MEAN CELL VOLUME 92.2 FL (80.0-100.0); MEAN CORPUSCULAR HEMOGLOBIN 31.1 PG (27.0-34.0); MEAN CORPUSCULAR HGB CONC 33.7 % (32.0-36.0); PLATELET COUNT 185 TH/MM3 (150-450); RED BLOOD COUNT 3.26 MIL/MM3 (4.50-5.90); RED CELL DISTRIBUTION WIDTH 14.1 % (11.6-17.2); REVIEW FLAG FINAL; WHITE BLOOD COUNT 6.8 TH/MM3 (4.0-11.0)
[2017-07-20 05:14] LABS: BICARBONATE 26.6 MEQ/L (21.0-32.0); POTASSIUM 4.1 MEQ/L (3.5-5.1)
[2017-07-20 08:00] VITALS: BP 107/60; PULSE 80; RESP 18; TEMP 98; O2SAT 97
[2017-07-20] MEDS: CHLORHEXIDINE 0.12% (ORAL KIT) 15 ML CUP MT SCH ×2 (08:00→20:00)
[2017-07-20] MEDS: ZIPRASIDONE HCL 40 MG CAP PO SCH ×2 (09:00→20:32)
--- NOTE | 2017-07-20 09:23 | HHI.PR ---
Subjective Remarks No acute events overnight. Afebrile, vital signs stable. Patient oriented to person and place however not to time. Per nursing report patient has been less agitated and only tried to get out of bed once yesterday. No agitation issues overnight. Stable on room air at this time. Objective Vitals Vital Signs Date Time Temp Pulse Resp B/P (MAP) Pulse Ox O2 Delivery O2 Flow Rate FiO2 07/20/17 08:00 98.0 80 18 107/60 (76) 97 07/20/17 04:01 Room Air 07/20/17 04:00 97.3 84 20 114/58 (76) 96 07/20/17 00:00 97.8 80 20 105/61 (76) 96 07/20/17 00:00 Room Air 07/19/17 21:00 Room Air 07/19/17 20:00 97.5 70 20 116/57 (76) 98 07/19/17 16:44 95 Nasal Cannula 2.00 07/19/17 16:00 97.0 88 18 108/62 (77) 92 07/19/17 12:00 97.0 68 20 108/58 (75) 97 I/O 07/19/17 07/19/17 07/19/17 07/20/17 07/20/17 07/20/17 07:00 15:00 23:00 07:00 15:00 23:00 Intake Total 1080 ml 600 ml Output Total 175 ml 200 ml 600 ml Balance -175 ml 880 ml 0 ml Intake Oral 1080 ml 600 ml Output Urine Total 175 ml 200 ml 600 ml # Voids 4 # Bowel Movements 1 0 Result Diagram: 07/20/17 0437 07/20/17 043 Objective Remarks GENERAL: Cachectic poorly kempt elderly male, laying in bed with restraints secondary to confusion but follows commands and will answer questions. NECK: Trachea midline. No JVD. Well-healed previous trach incision CARDIOVASCULAR: Atrial fibrillation rate controlled. RESPIRATORY: Well-healed left thoracotomy scar. CT removed yesterday. GASTROINTESTINAL: Abdomen soft, non-distended. Well-healed vertical abdominal scar MUSCULOSKELETAL: No obvious deformities. Erythema over bilateral knee NEUROLOGICAL: Alert to self only. No focal deficits. A/P Problem List: (1) Septic shock ICD Code: A41.9 - Sepsis, unspecified organism; R65.21 - Severe sepsis with septic shock (2) Acute metabolic encephalopathy ICD Code: G93.41 - Metabolic encephalopathy (3) Acute kidney failure ICD Code: N17.9 - Acute kidney failure, unspecified (4) Severe dehydration ICD Code: E86.0 - Dehydration (5) Lactic acidemia ICD Code: E87.2 - Acidosis (6) Metabolic acidemia ICD Code: E87.2 - Acidosis (7) Atrial fibrillation with rapid ventricular response ICD Code: I48.91 - Unspecified atrial fibrillation (8) UTI (urinary tract infection) ICD Code: N39.0 - Urinary tract infection, site not specified Status: Acute (9) Hyperglycemia ICD Code: R73.9 - Hyperglycemia, unspecified (10) Schizophrenia ICD Code: F20.9 - Schizophrenia, unspecified Status: Acute (11) COPD (chronic obstructive pulmonary disease) ICD Code: J44.9 - Chronic obstructive pulmonary disease Status: Chronic (12) A-fib ICD Code: I48.91 - Atrial fibrillation Status: Chronic (13) DM (diabetes mellitus) ICD Code: E11.9 - Diabetes mellitus Status: Chronic Assessment and Plan This is a 66-year-old male presented from the shelter with altered mental status found to be septic Acute metabolic encephalopathy -Most likely secondary to metabolic encephalopathy. -Initially resolved once underlining etiology was treated. Then patient became lethargic due to Ativan use. On Ativan was discontinued patient was back to his baseline. He does have intermittent episodes where he becomes agitated Geodon and Haldol does work. - CT of the head negative for acute findings - Psychiatry consulted, adjusted medications. Feels that patient may benefit from inpatient psych care once medically cleared. Acute respiratory failure/COPD with exacerbation /Right-sided pneumothorax, persistent/hemoptysis - Status post extubated twice. CT scan of chest shows no mass. -Aircraft Line As[employer]er consulted and following. - DuoNeb every 6 hours and when necessary. - Continue Symbicort, Spiriva - Patient with persistent pneumothorax, no s/p CT and pigtail removal - no PNX per CXR yesterday - Sputum culture-MSSA. Status post Rocephin. Patient currently on Augmentin. - Patient has been stable on room air and his respiratory status has improved. Maybe appropriate for transfer to inpatient psychiatry as early as tomorrow if he remains stable on room air. Septic shock - resolved. -Secondary to UTI MSSA pneumonia - Status post pressors. Now off of pressors. - 2d echo EF 55-60%. Continue aspirin. - Status post Rocephin on 07/11 for now on Augmentin. Status post vancomycin, cefepime and Flagyl. A. fib with RVR - rate controlled. - On Cardizem. - Not a candidate for long-term anticoagulation, continue Aspirin Long segment Rodarte's Esophagus Hematemesis- resolved. - Diet per GI. IV Protonix - Advance diet per GI. GI signed off. Acute kidney failure - improving. - Acute kidney failure is most likely from severe dehydration, creat improved - IV to KVO Monitor renal function closely. No Avery indicated - Nephrology following Urothelial cancer - Patient needs repeat cystoscopy and resection of bladder tumor, can be done as outpatient - Will need to hold ASA x 7 days prior to procedure Hyperglycemia, type 2 diabetes - Sliding-scale with NovoLog .History of schizophrenia - Psychotropics per psychiatry - Continues to require restraints - May benefit from inpatient psych stay once medically cleared per psychiatry consult - If patient remains out of restraints for 24 hours will consider transfer to inpatient psychiatry for further treatment prior to discharging back to SNF PROPH: Bilateral lower extremity SCDs. resumed lovenox 07/13. IV Protonix Discharge Planning Anticipate discharge to inpatient psychiatry as early as tomorrow if patient remains restrained free for 24 hours and continues to be stable on room air. Problem Qualifiers (1) Acute kidney failure: Qualified Codes: N17.9 - Acute kidney failure, unspecified (2) DM (diabetes mellitus): Fernanda Momin MD Jul 20, 2017 09:23
[2017-07-20] MEDS: INSULIN ASPART SUPPLEMENTAL SCALE SQ SCH ×4 (09:25→21:00)
[2017-07-20] MEDS: BUDESONIDE-FORMOTEROL 160/4.5 MCG INHALER INH SCH ×2 (09:26→22:01)
[2017-07-20] MEDS: ASPIRIN 325 MG TAB PO SCH (09:28)
[2017-07-20] MEDS: predniSONE 10 MG TAB PO SCH ×2 (09:28→20:32)
[2017-07-20] MEDS: SODIUM CHLORIDE 0.9% FLUSH 10 ML FLUSH IV FLUSH SCH ×2 (09:28→20:33)
[2017-07-20] MEDS: AMOXICILLIN/CLAVULANATE K 875 MG TAB PO SCH ×2 (09:28→20:32)
[2017-07-20] MEDS: HALOPERIDOL LACTATE ORAL CONC 10 MG/5 ML CUP PO SCH ×2 (09:29→20:32)
[2017-07-20] MEDS: PANTOPRAZOLE SOD 40 MG DELAYED RELEASE TAB PO SCH ×2 (09:29→20:32)
[2017-07-20] MEDS: DILTIAZEM HCL 30 MG TAB PO SCH ×4 (09:30→20:33)
[2017-07-20 12:00] VITALS: BP 100/64; PULSE 80; RESP 18; TEMP 97.9; O2SAT 97
[2017-07-20] MEDS: ENOXAPARIN SODIUM 30 MG/0.3 ML SYRINGE SQ SCH (13:29)
[2017-07-20 16:00] VITALS: BP 110/58; PULSE 80; RESP 18; TEMP 97.2; O2SAT 97
[2017-07-20 20:00] VITALS: BP 140/72; PULSE 80; RESP 18; TEMP 97.8; O2SAT 99
[2017-07-21] VITALS: BP 122/61; PULSE 62; RESP 18; TEMP 97.8; O2SAT 95
[2017-07-21 04:00] VITALS: BP 134/76; PULSE 68; RESP 20; TEMP 97.3; O2SAT 93
[2017-07-21] MEDS: CHLORHEXIDINE GLUCONATE 2 % 1 PACK (2 CLOTHS) TOP SCH (04:00)
[2017-07-21 05:45] LABS: HEMATOCRIT 30.5 % (39.0-51.0); MEAN CELL VOLUME 91.2 FL (80.0-100.0); MEAN CORPUSCULAR HEMOGLOBIN 30.9 PG (27.0-34.0); MEAN CORPUSCULAR HGB CONC 33.9 % (32.0-36.0); PLATELET COUNT 184 TH/MM3 (150-450); RED BLOOD COUNT 3.34 MIL/MM3 (4.50-5.90); RED CELL DISTRIBUTION WIDTH 14.2 % (11.6-17.2); REVIEW FLAG FINAL; WHITE BLOOD COUNT 5.5 TH/MM3 (4.0-11.0)
[2017-07-21 06:10] LABS: BICARBONATE 26.1 MEQ/L (21.0-32.0); POTASSIUM 4.2 MEQ/L (3.5-5.1)
[2017-07-21 08:00] VITALS: BP 100/65; PULSE 80; RESP 20; TEMP 97.4; O2SAT 93
[2017-07-21] MEDS: CHLORHEXIDINE 0.12% (ORAL KIT) 15 ML CUP MT SCH ×2 (08:00→20:00)
[2017-07-21] MEDS: predniSONE 10 MG TAB PO SCH ×2 (08:36→21:47)
[2017-07-21] MEDS: PANTOPRAZOLE SOD 40 MG DELAYED RELEASE TAB PO SCH ×2 (08:36→21:48)
[2017-07-21] MEDS: DILTIAZEM HCL 30 MG TAB PO SCH ×4 (08:36→21:47)
[2017-07-21] MEDS: ZIPRASIDONE HCL 40 MG CAP PO SCH ×2 (08:36→21:47)
[2017-07-21] MEDS: HALOPERIDOL LACTATE ORAL CONC 10 MG/5 ML CUP PO SCH ×2 (08:36→21:47)
[2017-07-21] MEDS: ASPIRIN 325 MG TAB PO SCH (08:37)
[2017-07-21] MEDS: AMOXICILLIN/CLAVULANATE K 875 MG TAB PO SCH ×2 (08:37→21:47)
[2017-07-21] MEDS: SODIUM CHLORIDE 0.9% FLUSH 10 ML FLUSH IV FLUSH SCH ×2 (08:37→21:54)
[2017-07-21] MEDS: BUDESONIDE-FORMOTEROL 160/4.5 MCG INHALER INH SCH ×2 (08:38→21:54)
[2017-07-21] MEDS: INSULIN ASPART SUPPLEMENTAL SCALE SQ SCH ×4 (08:40→21:52)
--- NOTE | 2017-07-21 11:50 | HHI.PR ---
Subjective Remarks Pt has no complaints, knows he is at the hospital and knows it is 2016 but cannot tell me the month or day. He would like to go back to [facility] where he came from. denies any pain, SOB, nausea or vomiting. Objective Vitals Vital Signs Date Time Temp Pulse Resp B/P (MAP) Pulse Ox O2 Delivery O2 Flow Rate FiO2 07/21/17 08:00 97.4 80 20 100/65 (77) 93 07/21/17 04:08 Room Air 07/21/17 04:00 97.3 68 20 134/76 (95) 93 07/21/17 00:00 97.8 62 18 122/61 (81) 95 07/21/17 00:00 Room Air 07/20/17 20:00 Room Air 07/20/17 20:00 97.8 80 18 140/72 (94) 99 07/20/17 16:00 97.2 80 18 110/58 (75) 97 07/20/17 12:18 95 Nasal Cannula 2.00 07/20/17 12:00 97.9 80 18 100/64 (76) 97 I/O 07/20/17 07/20/17 07/20/17 07/21/17 07/21/17 07/21/17 07:00 15:00 23:00 07:00 15:00 23:00 Intake Total 600 ml 480 ml Output Total 600 ml 900 ml Balance 0 ml -900 ml 480 ml Intake Oral 600 ml 480 ml Output Urine Total 600 ml 900 ml # Voids 4 # Bowel Movements 0 0 Result Diagram: 07/21/17 0503 07/21/17 0503 Imaging Last Impressions Chest X-Ray 07/19/17 0600 Signed Impressions: Service Date/Time: Wednesday, July 19, 2017 05:53 - CONCLUSION: Right chest tube out. No pneumothorax seen. Ravi Head MD Abdomen/Pelvis CT 07/13/17 0000 Signed Impressions: Service Date/Time: Thursday, July 13, 2017 18:15 - CONCLUSION: 1. Distended bladder with large right-sided bladder mass measuring up to 7 cm in maximal diameter. Diameter slightly increased from April 3. No hydronephrosis. 2. Small bilateral pleural effusions with right pneumothorax. See chest CT report. 3. Mild anasarca. Previous cholecystectomy. Mild constipation. Mild ileus. No bowel obstruction or free intraperitoneal air noted. Subcutaneous air in the right abdominal wall. 4. Calcifications in the pancreatic head most characteristic of chronic pancreatitis. Maciel Bird MD Chest CT 07/11/17 1204 Signed Impressions: Service Date/Time: Tuesday, July 11, 2017 12:42 - CONCLUSION: 1. The right-sided chest tubes is in place positioned within the right lung fissure. This is probably preventing the right lung from reexpanding. 2. Moderate right pneumothorax 3. Patchy infiltrate in the posterior right upper lung. 4. Bibasilar infiltrates suggestive of atelectasis. 5. Small bilateral effusions. Sam Riuz MD Head CT 07/06/17 0937 Signed Impressions: Service Date/Time: Thursday, July 06, 2017 12:08 - CONCLUSION: Stable CT scan of the brain compared to 05/01/2017. No new or significant changes. Sam Ruiz MD Renal Ultrasound 07/06/17 0000 Signed Impressions: Service Date/Time: Thursday, July 06, 2017 12:59 - CONCLUSION: 1. Echogenic kidneys bilaterally compatible with medical renal disease. 2. Possible pelvic mass. CT scan is recommended for further evaluation if clinically indicated. Shawn Nick MD Objective Remarks GENERAL: Cachectic poorly kempt elderly male, laying in bed with restraints secondary to confusion but follows commands and will answer questions. NECK: Trachea midline. \ SKIN: 2 superficial open wounds along the spine, non infected. not draining CARDIOVASCULAR: Atrial fibrillation rate controlled. RESPIRATORY: Well-healed left thoracotomy scar. GASTROINTESTINAL: Abdomen soft, non-distended, non tender MUSCULOSKELETAL: No obvious deformities. NEUROLOGICAL: Alert to self and place. No focal deficits. A/P Problem List: (1) Septic shock ICD Code: A41.9 - Sepsis, unspecified organism; R65.21 - Severe sepsis with septic shock (2) Acute metabolic encephalopathy ICD Code: G93.41 - Metabolic encephalopathy (3) Acute kidney failure ICD Code: N17.9 - Acute kidney failure, unspecified (4) Severe dehydration ICD Code: E86.0 - Dehydration (5) Lactic acidemia ICD Code: E87.2 - Acidosis (6) Metabolic acidemia ICD Code: E87.2 - Acidosis (7) Atrial fibrillation with rapid ventricular response ICD Code: I48.91 - Unspecified atrial fibrillation (8) UTI (urinary tract infection) ICD Code: N39.0 - Urinary tract infection, site not specified Status: Acute (9) Hyperglycemia ICD Code: R73.9 - Hyperglycemia, unspecified (10) Schizophrenia ICD Code: F20.9 - Schizophrenia, unspecified Status: Acute (11) COPD (chronic obstructive pulmonary disease) ICD Code: J44.9 - Chronic obstructive pulmonary disease Status: Chronic (12) A-fib ICD Code: I48.91 - Atrial fibrillation Status: Chronic (13) DM (diabetes mellitus) ICD Code: E11.9 - Diabetes mellitus Status: Chronic Assessment and Plan This is a 66-year-old male presented from the half-way with altered mental status found to be septic Acute metabolic encephalopathy -Initially resolved once underlining etiology was treated. Then patient became lethargic due to Ativan use. On Ativan was discontinued patient was back to his baseline. He does have intermittent episodes where he becomes agitated Geodon and Haldol do work. - CT of the head negative for acute findings - Psychiatry consulted, adjusted medications. Feels that patient may benefit from inpatient psych care once medically cleared. will re-consult for final recs Acute respiratory failure/COPD with exacerbation /Right-sided pneumothorax, persistent/hemoptysis - Status post extubated twice. CT scan of chest shows no mass. 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 DuoNeb every 6 hours and when necessary. - Continue Symbicort, Spiriva - Sputum culture-MSSA. Status post Rocephin. Patient currently on Augmentin. - Patient has been stable on room air and his respiratory status has improved. I will reconsult psychiatry for d/c planning. Septic shock - resolved. -Secondary to UTI MSSA pneumonia - Status post pressors. Now off of pressors. - 2d echo EF 55-60%. Continue aspirin. - Status post Rocephin on 07/11 for now on Augmentin. Status post vancomycin, cefepime and Flagyl. A. fib with RVR - rate controlled. - On Cardizem. - Not a candidate for long-term anticoagulation, continue Aspirin Long segment Rodarte's Esophagus Hematemesis- resolved. - Diet per GI. IV Protonix - Advance diet per GI. GI signed off. Acute kidney failure - improving. - Acute kidney failure is most likely from severe dehydration, creat improved - IV to KVO Monitor renal function closely. No Avery indicated - Nephrology following Urothelial cancer - Patient needs repeat cystoscopy and resection of bladder tumor, can be done as outpatient - Will need to hold ASA x 7 days prior to procedure Hyperglycemia, type 2 diabetes - Sliding-scale with NovoLog .History of schizophrenia - Psychotropics per psychiatry - May benefit from inpatient psych stay once medically cleared per psychiatry consult Discharge Planning Anticipate discharge to inpatient psychiatry Will await final recs from psych Problem Qualifiers (1) Acute kidney failure: Qualified Codes: N17.9 - Acute kidney failure, unspecified (2) DM (diabetes mellitus): Daya Lozano MD Jul 21, 2017 11:50
[2017-07-21 12:00] VITALS: BP 111/67; PULSE 78; RESP 18; TEMP 97.9; O2SAT 98
[2017-07-21] MEDS: ENOXAPARIN SODIUM 30 MG/0.3 ML SYRINGE SQ SCH (12:17)
[2017-07-21] MEDS: ENOXAPARIN SODIUM 40 MG/0.4 ML SYRINGE SQ SCH (14:01)
--- NOTE | 2017-07-21 15:33 | PD.WCN.NOT ---
Wound Consult Description: Received consult from Doctor lozano for wound management of 2 open wounds over the spinous upper back. Communicated with: KASSIDY Jenkins and Doctor Lozano Recommendation: Please cleanse wounds over patient's thoracic spine with normal saline and apply Optifoam gentle border 4x4 dressing [address]. Change dressing every 3 days or PRN if saturated or dislodged. Please apply skin prep to periwound before applying dressing in place. Optfoam gentle border 4x4 is available through misogram only. Additional Information: Patient seen earlier on for evaluation of two open wounds over the spinous area of upper back for wound management. Patient leaned forward in bed to reveal two shallow full thickness wounds over thoracic spine. Wounds are in a linear pattern by ~0.5cm of intact skin. Proximal wound measures 1.5cm x 0.9 cm x ~0.1cm. Wound bed presents with ~50% red tissue and ~50% white tissue Wound has minimal sero-sanguinous without odor periwound presents with minimal blanchable erythema, but is other malagon unremarkable. Distal wound measures 1.1cm x 0.8cm x~0.1cm Wound bed also presents with ~50% red tissue and ~50% white tissue and minimal sero-sanguinous drainage that is without odor. Periwound presents with minimal blanchable erythema. Both wounds presents with an oval shape and attached, well defined, and even wound margins. Wound etiology appears to be pressure related.Both wounds are staged as stage 3 pressure injuries. Wound care recommendations noted above.Patient is able to reposition self in bed, encouraged patient to reposition himself in bed to offload pressure from spinal area. Daisha Logan [facility] Jul 21, 2017 15:33
[2017-07-21 16:00] VITALS: BP 113/62; PULSE 70; RESP 20; TEMP 98.8; O2SAT 97
[2017-07-21 20:00] VITALS: BP 126/58; PULSE 78; RESP 18; TEMP 98.3; O2SAT 96
[2017-07-22] VITALS: BP 107/60; PULSE 77; RESP 18; TEMP 98.6; O2SAT 96
[2017-07-22 04:00] VITALS: BP 142/66; PULSE 88; RESP 18; TEMP 98.2; O2SAT 96
[2017-07-22] MEDS: CHLORHEXIDINE GLUCONATE 2 % 1 PACK (2 CLOTHS) TOP SCH (04:00)
[2017-07-22 08:00] VITALS: BP 101/65; PULSE 95; RESP 22; TEMP 96.3; O2SAT 97
[2017-07-22] MEDS: CHLORHEXIDINE 0.12% (ORAL KIT) 15 ML CUP MT SCH ×2 (08:00→20:00)
[2017-07-22] MEDS: ZIPRASIDONE HCL 40 MG CAP PO SCH ×2 (09:34→22:09)
[2017-07-22] MEDS: PANTOPRAZOLE SOD 40 MG DELAYED RELEASE TAB PO SCH ×2 (09:34→22:09)
[2017-07-22] MEDS: ASPIRIN 325 MG TAB PO SCH (09:34)
[2017-07-22] MEDS: AMOXICILLIN/CLAVULANATE K 875 MG TAB PO SCH ×2 (09:34→22:09)
[2017-07-22] MEDS: DILTIAZEM HCL 30 MG TAB PO SCH ×4 (09:34→22:09)
[2017-07-22] MEDS: predniSONE 10 MG TAB PO SCH ×2 (09:34→22:09)
[2017-07-22] MEDS: HALOPERIDOL LACTATE ORAL CONC 10 MG/5 ML CUP PO SCH ×2 (09:34→22:09)
[2017-07-22] MEDS: SODIUM CHLORIDE 0.9% FLUSH 10 ML FLUSH IV FLUSH SCH ×2 (09:35→21:52)
[2017-07-22] MEDS: BUDESONIDE-FORMOTEROL 160/4.5 MCG INHALER INH SCH ×2 (09:35→21:52)
[2017-07-22] MEDS: INSULIN ASPART SUPPLEMENTAL SCALE SQ SCH ×4 (09:36→22:10)
--- NOTE | 2017-07-22 11:01 | HHI.PR ---
Subjective Remarks Pt asking to go to [facility] today. denies any pain, nausea or vomiting. Objective Vitals Vital Signs Date Time Temp Pulse Resp B/P (MAP) Pulse Ox O2 Delivery O2 Flow Rate FiO2 07/22/17 08:00 96.3 95 22 101/65 (77) 97 07/22/17 04:00 98.2 88 18 142/66 (91) 96 07/22/17 00:00 98.6 77 18 107/60 (76) 96 07/21/17 20:00 Room Air 07/21/17 20:00 98.3 78 18 126/58 (80) 96 07/21/17 16:00 98.8 70 20 113/62 (79) 97 07/21/17 12:00 97.9 78 18 111/67 (82) 98 I/O 07/21/17 07/21/17 07/21/17 07/22/17 07/22/17 07/22/17 07:00 15:00 23:00 07:00 15:00 23:00 Intake Total 480 ml 840 ml Balance 480 ml 840 ml Intake Oral 480 ml 840 ml # Voids 4 2 4 # Bowel Movements 0 0 Result Diagram: 07/21/17 0503 07/21/17 0503 Imaging Last Impressions Chest X-Ray 07/19/17 0600 Signed Impressions: Service Date/Time: Wednesday, July 19, 2017 05:53 - CONCLUSION: Right chest tube out. No pneumothorax seen. Ravi Head MD Abdomen/Pelvis CT 07/13/17 0000 Signed Impressions: Service Date/Time: Thursday, July 13, 2017 18:15 - CONCLUSION: 1. Distended bladder with large right-sided bladder mass measuring up to 7 cm in maximal diameter. Diameter slightly increased from April 3. No hydronephrosis. 2. Small bilateral pleural effusions with right pneumothorax. See chest CT report. 3. Mild anasarca. Previous cholecystectomy. Mild constipation. Mild ileus. No bowel obstruction or free intraperitoneal air noted. Subcutaneous air in the right abdominal wall. 4. Calcifications in the pancreatic head most characteristic of chronic pancreatitis. Maciel Bird MD Chest CT 07/11/17 1204 Signed Impressions: Service Date/Time: Tuesday, July 11, 2017 12:42 - CONCLUSION: 1. The right-sided chest tubes is in place positioned within the right lung fissure. This is probably preventing the right lung from reexpanding. 2. Moderate right pneumothorax 3. Patchy infiltrate in the posterior right upper lung. 4. Bibasilar infiltrates suggestive of atelectasis. 5. Small bilateral effusions. Sam Ruiz MD Head CT 07/06/17 0937 Signed Impressions: Service Date/Time: Thursday, July 06, 2017 12:08 - CONCLUSION: Stable CT scan of the brain compared to 05/01/2017. No new or significant changes. Sam Ruiz MD Renal Ultrasound 07/06/17 0000 Signed Impressions: Service Date/Time: Thursday, July 06, 2017 12:59 - CONCLUSION: 1. Echogenic kidneys bilaterally compatible with medical renal disease. 2. Possible pelvic mass. CT scan is recommended for further evaluation if clinically indicated. Shawn Nick MD Objective Remarks GENERAL: Cachectic poorly kempt elderly male, NECK: Trachea midline. SKIN: 2 superficial open wounds along the spine, not examined today, dressing in place d/c/i. CARDIOVASCULAR: Atrial fibrillation rate controlled. RESPIRATORY: Well-healed left thoracotomy scar. GASTROINTESTINAL: Abdomen soft, non-distended, non tender MUSCULOSKELETAL: No obvious deformities. NEUROLOGICAL: Alert to self and place. No focal deficits. A/P Problem List: (1) Septic shock ICD Code: A41.9 - Sepsis, unspecified organism; R65.21 - Severe sepsis with septic shock (2) Acute metabolic encephalopathy ICD Code: G93.41 - Metabolic encephalopathy (3) Acute kidney failure ICD Code: N17.9 - Acute kidney failure, unspecified (4) Severe dehydration ICD Code: E86.0 - Dehydration (5) Lactic acidemia ICD Code: E87.2 - Acidosis (6) Metabolic acidemia ICD Code: E87.2 - Acidosis (7) Atrial fibrillation with rapid ventricular response ICD Code: I48.91 - Unspecified atrial fibrillation (8) UTI (urinary tract infection) ICD Code: N39.0 - Urinary tract infection, site not specified Status: Acute (9) Hyperglycemia ICD Code: R73.9 - Hyperglycemia, unspecified (10) Schizophrenia ICD Code: F20.9 - Schizophrenia, unspecified Status: Acute (11) COPD (chronic obstructive pulmonary disease) ICD Code: J44.9 - Chronic obstructive pulmonary disease Status: Chronic (12) A-fib ICD Code: I48.91 - Atrial fibrillation Status: Chronic (13) DM (diabetes mellitus) ICD Code: E11.9 - Diabetes mellitus Status: Chronic Assessment and Plan This is a 66-year-old male presented from the shelter with altered mental status found to be septic Acute metabolic encephalopathy -Initially resolved once underlining etiology was treated. Then patient became lethargic due to Ativan use. On Ativan was discontinued patient was back to his baseline. He does have intermittent episodes where he becomes agitated Geoidalia and Kathyl do work. - CT of the head negative for acute findings - Psychiatry consulted, adjusted medications. Feels that patient may benefit from inpatient psych care once medically cleared. Re-consult in place. Acute respiratory failure/COPD with exacerbation /Right-sided pneumothorax, persistent/hemoptysis - Status post extubated twice. CT scan of chest shows no mass. 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 DuoNeb every 6 hours and when necessary. - Continue Symbicort, Spiriva - Sputum culture-MSSA. Status post Rocephin. Patient currently on Augmentin. - Patient has been stable on room air and his respiratory status has improved. Septic shock - resolved. -Secondary to UTI MSSA pneumonia - Status post pressors. Now off of pressors. 2d echo EF 55-60%. Continue aspirin. - Status post Rocephin on 07/11 for now on Augmentin. s/p vancomycin, cefepime and Flagyl. A. fib with RVR - rate controlled. - On Cardizem. - Not a candidate for long-term anticoagulation, continue Aspirin Long segment Rodarte's Esophagus Hematemesis- resolved. - Diet per GI. IV Protonix - Advance diet per GI. GI signed off. Acute kidney failure - improving. - Acute kidney failure is most likely from severe dehydration, now resolved. - Nephrology saw pt, last note dated on 07/11/17 - u/s had showed pelvic mass which was evaluated by ct scan and urology consulted, see below. Urothelial cancer - Patient needs repeat cystoscopy and resection of bladder tumor, can be done as outpatient - Will need to hold ASA x 7 days prior to procedure Hyperglycemia, type 2 diabetes - Sliding-scale with NovoLog .History of schizophrenia - Psychotropics per psychiatry - May benefit from inpatient psych stay once medically cleared per psychiatry consult Discharge Planning Anticipate discharge to inpatient psychiatry Will await final recs from psych Problem Qualifiers (1) Acute kidney failure: Qualified Codes: N17.9 - Acute kidney failure, unspecified (2) DM (diabetes mellitus): Daya Lozano MD Jul 22, 2017 11:01
[2017-07-22 12:00] VITALS: BP 112/64; PULSE 93; RESP 20; TEMP 97.5; O2SAT 97
[2017-07-22] MEDS: ENOXAPARIN SODIUM 40 MG/0.4 ML SYRINGE SQ SCH (13:36)
--- NOTE | 2017-07-22 14:00 | HHI.PYPN ---
Subjective Remarks The patient was seen today for psychiatric reevaluation, patient is calm, cooperative, requesting to be discharged back to his residential facility. Patient is logical, coherent and relevant. He is oriented 3. Reports good mood, denies depressive symptoms, denies anxiety, denies suicidal and homicidal ideation, he denies visual and auditory hallucinations. Compliant with his psychotropics, no significant side effects. Review of Systems Except as stated in HPI: all other systems reviewed are Neg Mental Status Examination Appearance: Appropriate Consciousness: Alert Orientation: x4, Person, Place Motor Activity: Abnormal gait Speech: Unremarkable, Slow, Incoherent Language: Adequate Fund of Knowledge: Adequate, Inadequate Attention and Concentration: Adequate, Inadequate Memory: Unremarkable Mood: Appropriate Affect: Appropriate Thought Process & Associations: Intact Thought Content: Appropriate Hallucination Type: None Delusion Type: None Suicidal Ideation: No Suicidal Plan: No Suicidal Intention: No Homicidal Ideation: No Homicidal Plan: No Homicidal Intention: No Insight: Adequate Judgment: Adequate Results Labs Date/Time Source Procedure Growth Status 07/06/17 09:45 Blood Peripheral Aerobic Blood Culture - Final NO GROWTH IN 5 DAYS Complete 07/06/17 09:45 Blood Peripheral Anaerobic Blood Culture - Final NO GROWTH IN 5 DAYS Complete 07/09/17 01:00 Sputum Endotracheal Gram Stain - Final Complete 07/09/17 01:00 Sputum Culture - Final Staphylococcus Aureus Complete 07/06/17 09:45 Urine Catheterized Urine Urine Culture - Final Klebsiella Pneumoniae Complete Vitals/IOs Vital Signs Date Time Temp Pulse Resp B/P (MAP) Pulse Ox O2 Delivery O2 Flow Rate FiO2 07/22/17 12:00 97.5 93 20 112/64 (80) 97 07/21/17 20:00 Room Air 07/20/17 12:18 2.00 Assessment & Plan Problem List: (1) Schizoaffective disorder, bipolar type ICD Codes: F25.0 - Schizoaffective disorder, bipolar type Status: Acute Assessment & Plan: on psychiatric evaluation today the patient does not present any acute symptomatology of depression, anxiety, faisal or psychosis. Patient is a baseline. Compliant with His medications, no significant side effects. Patient does not meet criteria for involuntary psychiatric admission at this moment. He can continue his outpatient care in his residential facility. Discharge the patient with current psychotropic regimen. Case was discussed with primary medical team. Assessment & Plan Estimated LOS: days Justification for Cont. Inpt. Patient does not meet criteria for psychiatric admission at this moment. Kyler Mcelroy MD Jul 22, 2017 13:59
[2017-07-22] MEDS ORDERED: SYMB160A INH (15:19)
[2017-07-22] MEDS ORDERED: HALO2S PO (15:19)
[2017-07-22] MEDS ORDERED: MEDR4PAK PO (15:19)
[2017-07-22] MEDS ORDERED: DILT31TA PO (15:19)
[2017-07-22] MEDS ORDERED: ZIPR40 PO (15:19)
[2017-07-22] MEDS ORDERED: PANT40TA3 PO (15:24)
--- NOTE | 2017-07-22 15:24 | HHI.DS ---
Discharge Summary Admission Date Jul 06, 2017 at 11:21 Discharge Date: Jul 22, 2017 Admitting Diagnosis sepsis, dehydration, afib with rvr (1) Septic shock ICD Code: A41.9 - Sepsis, unspecified organism; R65.21 - Severe sepsis with septic shock Diagnosis: Principal (2) Acute metabolic encephalopathy ICD Code: G93.41 - Metabolic encephalopathy Diagnosis: Principal (3) Acute kidney failure ICD Code: N17.9 - Acute kidney failure, unspecified Diagnosis: Principal (4) Severe dehydration ICD Code: E86.0 - Dehydration Diagnosis: Principal (5) Lactic acidemia ICD Code: E87.2 - Acidosis Diagnosis: Principal (6) Metabolic acidemia ICD Code: E87.2 - Acidosis Diagnosis: Principal (7) Atrial fibrillation with rapid ventricular response ICD Code: I48.91 - Unspecified atrial fibrillation Diagnosis: Principal (8) UTI (urinary tract infection) ICD Code: N39.0 - Urinary tract infection, site not specified Diagnosis: Principal Status: Acute (9) Hyperglycemia ICD Code: R73.9 - Hyperglycemia, unspecified Diagnosis: Principal (10) Schizophrenia ICD Code: F20.9 - Schizophrenia, unspecified Diagnosis: Secondary Status: Acute (11) COPD (chronic obstructive pulmonary disease) ICD Code: J44.9 - Chronic obstructive pulmonary disease Diagnosis: Secondary Status: Chronic (12) A-fib ICD Code: I48.91 - Atrial fibrillation Diagnosis: Secondary Status: Chronic (13) DM (diabetes mellitus) ICD Code: E11.9 - Diabetes mellitus Diagnosis: Secondary Status: Chronic Procedures none Brief History - From Admission All history is obtained from discussion with the ED physician and chart review as the patient is intubated and altered Patient is a 66-year-old male correction resident with past medical history with schizophrenia dementia with behavioral disturbances, COPD, type 2 diabetes , hypertension, dyslipidemia, chronic atrial fibrillation. He apparently developed altered mentation, decreased level of consciousness while at the breakfast table in his NH. He passed out while eating breakfast, had been having syncopal episodes recently. Initial blood pressure systolic was in the 50s and patient was aggressively resuscitated in the ED with a total of 3 L normal saline. Broad-spectrum antibiotics given with Zosyn. The patient appears to be septic with urinary source. He's been started on Levophed to keep map above 65. Abnormal labs include Lactic acid is 4.7, sodium of 148, bicarbonate 12.4, BUN 125/creatinine 6.39, blood glucose was 639. WBC count was 16,000. There is evidence of aspiration as per the intubation note from Dr. Cai I evaluated the patient in the ED. He is intubated sedated but withdrawals to pain on all 4 extremities. His remains hypotensive tachycardic with A. fib with RVR. Levophed is at 2 mcg/m. Additional 1 L fluid boluses ordered, patient will need central line placement and further resuscitation. Antibiotics were modified to vancomycin cefepime and Flagyl. Due to recent history of diarrhea, C. difficile had been ordered CBC/BMP: 07/21/17 0503 07/21/17 0503 Significant Findings Laboratory Tests Test 07/20/17 04:37 07/21/17 05:03 Red Blood Count 3.26 MIL/MM3 (4.50-5.90) 3.34 MIL/MM3 (4.50-5.90) Hemoglobin 10.1 GM/DL (13.0-17.0) 10.3 GM/DL (13.0-17.0) Hematocrit 30.1 % (39.0-51.0) 30.5 % (39.0-51.0) Creatinine 0.50 MG/DL (0.60-1.30) 0.48 MG/DL (0.60-1.30) Random Glucose 288 MG/DL (74-106) 318 MG/DL (74-106) Calcium Level 8.0 MG/DL (8.5-10.1) 8.2 MG/DL (8.5-10.1) Sodium Level 133 MEQ/L (136-145) Imaging Last Impressions Chest X-Ray 07/19/17 0600 Signed Impressions: Service Date/Time: Wednesday, July 19, 2017 05:53 - CONCLUSION: Right chest tube out. No pneumothorax seen. Ravi Head MD Abdomen/Pelvis CT 07/13/17 0000 Signed Impressions: Service Date/Time: Thursday, July 13, 2017 18:15 - CONCLUSION: 1. Distended bladder with large right-sided bladder mass measuring up to 7 cm in maximal diameter. Diameter slightly increased from April 3. No hydronephrosis. 2. Small bilateral pleural effusions with right pneumothorax. See chest CT report. 3. Mild anasarca. Previous cholecystectomy. Mild constipation. Mild ileus. No bowel obstruction or free intraperitoneal air noted. Subcutaneous air in the right abdominal wall. 4. Calcifications in the pancreatic head most characteristic of chronic pancreatitis. Maciel Bird MD Chest CT 07/11/17 1204 Signed Impressions: Service Date/Time: Tuesday, July 11, 2017 12:42 - CONCLUSION: 1. The right-sided chest tubes is in place positioned within the right lung fissure. This is probably preventing the right lung from reexpanding. 2. Moderate right pneumothorax 3. Patchy infiltrate in the posterior right upper lung. 4. Bibasilar infiltrates suggestive of atelectasis. 5. Small bilateral effusions. Sam Ruiz MD Head CT 07/06/17 0937 Signed Impressions: Service Date/Time: Thursday, July 06, 2017 12:08 - CONCLUSION: Stable CT scan of the brain compared to 05/01/2017. No new or significant changes. Sam Ruiz MD Renal Ultrasound 07/06/17 0000 Signed Impressions: Service Date/Time: Thursday, July 06, 2017 12:59 - CONCLUSION: 1. Echogenic kidneys bilaterally compatible with medical renal disease. 2. Possible pelvic mass. CT scan is recommended for further evaluation if clinically indicated. Shawn Nick MD PE at Discharge GENERAL: Cachectic poorly kempt elderly male, NECK: Trachea midline. SKIN: 2 superficial open wounds along the spine, not examined today, dressing in place d/c/i. CARDIOVASCULAR: Atrial fibrillation rate controlled. RESPIRATORY: Well-healed left thoracotomy scar. GASTROINTESTINAL: Abdomen soft, non-distended, non tender MUSCULOSKELETAL: No obvious deformities. NEUROLOGICAL: Alert to self and place. No focal deficits. Hospital Course Acute metabolic encephalopathy -Initially resolved once underlining etiology was treated. Then patient became lethargic due to Ativan use. On Ativan was discontinued patient was back to his baseline. He does have intermittent episodes where he becomes agitated [employer] do work. - CT of the head negative for acute findings - Psychiatry consulted, decreased some of his psych medications and patient responded well. Discussed w Dr. Madrid (inpatient psych), pt must f/u w his psychiatrist as an outpatient. Acute respiratory failure/COPD with exacerbation /Right-sided pneumothorax, persistent/hemoptysis - Status post extubated twice. CT scan of chest shows no mass. - Extractive Metallurgist evaluated s/p CT removal. DuoNeb every 6 hours and when necessary. - Continue Symbicort - Sputum culture-MSSA. Status post Rocephin. and completed treatment w Augmentin. - Patient has been stable on room air and his respiratory status has improved. Septic shock - resolved. -Secondary to UTI MSSA pneumonia - Status post pressors. Now off of pressors. 2d echo EF 55-60%. Continue aspirin. - Status post Rocephin on 07/11 for now on Augmentin. s/p vancomycin, cefepime and Flagyl. A. fib with RVR - rate controlled. - On Cardizem. - Not a candidate for long-term anticoagulation, continue Aspirin Long segment Rodarte's Esophagus Hematemesis- resolved. - Diet per GI. protonix - Advance diet per GI. GI signed off. Acute kidney failure - improving. - Acute kidney failure is most likely from severe dehydration, now resolved. - Nephrology saw pt, last note dated on 07/11/17 - u/s had showed pelvic mass which was evaluated by ct scan and urology consulted, see below. Urothelial cancer - Patient needs repeat cystoscopy and resection of bladder tumor, can be done as outpatient - Will need to hold ASA x 7 days prior to procedure .History of schizophrenia - Psychotropics per psychiatry Pt Condition on Discharge: Stable Discharge Disposition: [facility]/NURSING HOME Discharge Time: > 30 minutes Discharge Instructions DIET: Follow Instructions for: Heart Healthy Diet Additional Diet Instructions: mechanical soft/chopped meat w gravy/thin liquids Activities you can perform: Regular-No Restrictions Follow up Referrals: PCP Follow-up - 1 Week Psychiatry Adult - 1 Week New Medications: Methylprednisolone Dosepak (Medrol Dosepak) 4 Mg Dspk 4 MG PO DIRECTED, #1 DSPK 0 Refills Per Pharmacist direction Budesonide-Formoterol Inh (Symbicort Inh) 160-4.5 Mcg/Act Aero 1 PUFF INH Q12HR, #1 INHALER Diltiazem (Cardizem) 30 Mg Tab 30 MG PO QID, #120 TAB Haloperidol Liq (Haloperidol Liq) 2 Mg/Ml Conc 5 MG PO BID, #150 ML Pantoprazole (Pantoprazole) 40 Mg Tab 40 MG PO Q12HR, #60 TAB Ziprasidone (Geodon) 40 Mg Cap 40 MG PO BID, #30 CAP Continued Medications: Aspirin (Aspirin) 325 Mg Tab 325 MG PO DAILY, #30 TAB 0 Refills Benztropine (Benztropine) 0.5 Mg Tab 2 MG PO DAILY, #30 TAB 0 Refills Metformin (Metformin) 1,000 Mg Tab 1000 MG PO DAILY for Blood Sugar Management, #30 TAB 0 Refills With a meal Daya Lozano MD Jul 22, 2017 15:23
[2017-07-22 16:25] VITALS: BP 143/63; PULSE 79; TEMP 97.9; O2SAT 98
[2017-07-22 19:35] VITALS: BP 114/68; PULSE 75; RESP 18; TEMP 98.3; O2SAT 96
[2017-07-23] VITALS: BP 120/69; PULSE 64; RESP 16; TEMP 99.8; O2SAT 95
[2017-07-23 04:00] VITALS: BP 115/64; PULSE 82; RESP 16; TEMP 98.7; O2SAT 97
[2017-07-23] MEDS: CHLORHEXIDINE GLUCONATE 2 % 1 PACK (2 CLOTHS) TOP SCH (04:00)
[2017-07-23 08:00] VITALS: BP 118/61; PULSE 58; RESP 18; TEMP 97.5; O2SAT 99
[2017-07-23] MEDS: CHLORHEXIDINE 0.12% (ORAL KIT) 15 ML CUP MT SCH (08:00)
[2017-07-23] MEDS: HALOPERIDOL LACTATE ORAL CONC 10 MG/5 ML CUP PO SCH (08:44)
[2017-07-23] MEDS: PANTOPRAZOLE SOD 40 MG DELAYED RELEASE TAB PO SCH (08:44)
[2017-07-23] MEDS: INSULIN ASPART SUPPLEMENTAL SCALE SQ SCH (08:44)
[2017-07-23] MEDS: DILTIAZEM HCL 30 MG TAB PO SCH (08:45)
[2017-07-23] MEDS: ASPIRIN 325 MG TAB PO SCH (08:45)
[2017-07-23] MEDS: SODIUM CHLORIDE 0.9% FLUSH 10 ML FLUSH IV FLUSH SCH (08:46)
[2017-07-23] MEDS: predniSONE 10 MG TAB PO SCH (08:46)
[2017-07-23] MEDS: ZIPRASIDONE HCL 40 MG CAP PO SCH (08:46)
[2017-07-23] MEDS: AMOXICILLIN/CLAVULANATE K 875 MG TAB PO SCH (08:46)
[2017-07-23] MEDS: BUDESONIDE-FORMOTEROL 160/4.5 MCG INHALER INH SCH (08:53)
== END 2017-07-23 11:23 | DRG 870 ==
LOC: NEPE 09:20 → NEDA 11:21 → HIMW 12:30 → HIME 07-14 12:10 → N04A 07-18 11:50
PROVIDERS: ADMIT Hospitalist; ATTEND Hospitalist
PROC: 5A1955Z Respiratory Ventilation, Greater than 96 Consecutive Hours (ICD-10-PCS; principal; 2017-07-06)
PROC: 0BH17EZ Insertion of Endotracheal Airway into Trachea, Via Natural or Artificial Opening (ICD-10-PCS; 2017-07-06)
PROC: 05H533Z Insertion of Infusion Device into Right Subclavian Vein, Percutaneous Approach (ICD-10-PCS; 2017-07-06)
PROC: 05HM33Z Insertion of Infusion Device into Right Internal Jugular Vein, Percutaneous Approach (ICD-10-PCS; 2017-07-06)
PROC: 0W9930Z Drainage of Right Pleural Cavity with Drainage Device, Percutaneous Approach (ICD-10-PCS; 2017-07-06)
PROC: 0W9930Z Drainage of Right Pleural Cavity with Drainage Device, Percutaneous Approach (ICD-10-PCS; 2017-07-08)
PROC: 0DB58ZX Excision of Esophagus, Via Natural or Artificial Opening Endoscopic, Diagnostic (ICD-10-PCS; 2017-07-09)
PROC: 0W9930Z Drainage of Right Pleural Cavity with Drainage Device, Percutaneous Approach (ICD-10-PCS; 2017-07-12)
DX: A41.9 Sepsis, unspecified organism (principal); N17.0 Acute kidney failure with tubular necrosis; J96.01 Acute respiratory failure with hypoxia; R65.21 Severe sepsis with septic shock; G93.41 Metabolic encephalopathy; R64 Cachexia; I95.9 Hypotension, unspecified; K92.0 Hematemesis; J15.211 Pneumonia due to Methicillin susceptible Staphylococcus aureus; J44.0 Chronic obstructive pulmonary disease with (acute) lower respiratory infection; E87.0 Hyperosmolality and hypernatremia; E87.2 Acidosis; J44.1 Chronic obstructive pulmonary disease with (acute) exacerbation; Z68.1 Body mass index [BMI] 19.9 or less, adult; N39.0 Urinary tract infection, site not specified; F03.91 Unspecified dementia, unspecified severity, with behavioral disturbance; F20.0 Paranoid schizophrenia; R04.2 Hemoptysis; J95.811 Postprocedural pneumothorax; E11.22 Type 2 diabetes mellitus with diabetic chronic kidney disease; I48.2 Chronic atrial fibrillation; F41.9 Anxiety disorder, unspecified; E78.5 Hyperlipidemia, unspecified; N18.9 Chronic kidney disease, unspecified; K21.9 Gastro-esophageal reflux disease without esophagitis; I12.9 Hypertensive chronic kidney disease with stage 1 through stage 4 chronic kidney disease, or unspecified chronic kidney disease; F17.210 Nicotine dependence, cigarettes, uncomplicated; E86.0 Dehydration; E11.65 Type 2 diabetes mellitus with hyperglycemia; Y84.8 Other medical procedures as the cause of abnormal reaction of the patient, or of later complication, without mention of misadventure at the time of the procedure; Y92.239 Unspecified place in hospital as the place of occurrence of the external cause; E87.6 Hypokalemia; K22.70 Barrett's esophagus without dysplasia; C67.9 Malignant neoplasm of bladder, unspecified; D64.9 Anemia, unspecified; E83.39 Other disorders of phosphorus metabolism; Z78.1 Physical restraint status; Z87.440 Personal history of urinary (tract) infections; Z79.84 Long term (current) use of oral hypoglycemic drugs
CPT/HCPCS: 31500; 32551; 36556; 36620; 43753; 51702; 70450; 71010; 71250; 74177; 76775; 76937; 80048; 80053; 80069; 80202; 80307; 81001; 82010; 82550; 82552; 82570; 82607; 82805; 82948; 83605; 83735; 84100; 84132; 84133; 84300; 84443; 84484; 85014; 85018; 85025; 85027; 85610; 85730; 86403; 86850; 86900; 86901; 87040; 87070; 87077; 87086; 87147; 87186; 87205; 87493; 87641; 88305; 93005; 93306; 94002; 94003; 94150; 94640; 94664; 96365; 96366; 96368; C9113; J0330; J0692; J0696; J1100; J1630; J1650; J1815; J2060; J2250; J2370; J2405; J2543; J2920; J2930; J3010; J3480; J7030; J7050; J7060; J7512; J7613; Q9967

== ENCOUNTER 2017-09-16 14:41 | Inpatient (IN) | payer OTHER ==
[~2017-09-16] VITALS: Ht 177.8 cm; Wt 53.8 kg
[~2017-09-16 14:41] MED LIST changes: +ASPI-183 PO; -ASPI325T PO; +DILT31TA PO; +MEDR4PAK PO; +PANT40TA3 PO; +SYMB160A INH; +ZIPR40 PO
[2017-09-16 14:51] VITALS: BP 140/71; PULSE 91; RESP 24; TEMP 98.6; O2SAT 91
[2017-09-16 15:45] VITALS: O2SAT 96
--- NOTE | 2017-09-16 16:12 | RADRPT ---
EXAM DATE/TIME: 09/16/2017 15:15 [facility] COMPARISON: CHEST SINGLE AP, July 19, 2017, 5:53. INDICATIONS : Short of breath. MEDICAL HISTORY : Hypercholesterolemia. Hypertension. Dementia. COPD. Hyperlipidemia. Seizures. Chronic UTI's. diabetes . atrial fibrillation. SURGICAL HISTORY : None. ENCOUNTER: Initial ACUITY: 1 day PAIN SCORE: Non-responsive. LOCATION: chest FINDINGS: Lungs are hyperinflated. Chronic interstitial changes are noted. There is no evidence of acute conges tion or consolidating airspace disease. Deformity of the right humeral head is identified and appears stable. CONCLUSION: COPD; no evidence of consolidating airspace disease or acute congestion. Yazan Ocasio MD on September 16, 2017 at 16:08 Board Certified Radiologist. This report was verified electronically.
[2017-09-16 16:18] LABS: AUTOMATED NEUTROPHIL # 7.7 TH/MM3 (1.8-7.7); BASOPHIL # 0.1 TH/MM3 (0-0.2); BASOPHIL % 0.8 % (0.0-2.0); HEMATOCRIT 36.7 % (39.0-51.0); HEMOGLOBIN 12.1 GM/DL (13.0-17.0); LYMPH % 10.8 % (9.0-44.0); LYMPHOCYTE # 1.1 TH/MM3 (1.0-4.8); MEAN CELL VOLUME 90.8 FL (80.0-100.0); MEAN CORPUSCULAR HEMOGLOBIN 29.9 PG (27.0-34.0); MEAN CORPUSCULAR HGB CONC 32.9 % (32.0-36.0); MEAN PLATELET VOLUME 6.7 FL (7.0-11.0); MONO % 9.4 % (0.0-8.0); MONOCYTE # 0.9 TH/MM3 (0-0.9); PLATELET COUNT 406 TH/MM3 (150-450); RED BLOOD COUNT 4.04 MIL/MM3 (4.50-5.90); RED CELL DISTRIBUTION WIDTH 15.7 % (11.6-17.2); WHITE BLOOD COUNT 9.8 TH/MM3 (4.0-11.0)
[2017-09-16 16:29] LABS: PROTHROMBIN TIME - PATIENT 10.1 SEC (9.8-11.6)
[2017-09-16 16:35] LABS: ALBUMIN 2.7 GM/DL (3.4-5.0); ALT (GPT) 25 U/L (12-78); AST (GOT) 44 U/L (15-37); BICARBONATE 25.7 MEQ/L (21.0-32.0); BLOOD UREA NITROGEN 38 MG/DL (7-18); CALCIUM 9.1 MG/DL (8.5-10.1); CHLORIDE 105 MEQ/L (98-107); CREATININE 0.99 MG/DL (0.60-1.30); GLOMERULAR FILTRATION RATE 75 ML/MIN (>89); GLUCOSE,RANDOM 134 MG/DL (74-106); MAGNESIUM 2.4 MG/DL (1.5-2.5); SODIUM (NA) 139 MEQ/L (136-145)
[2017-09-16 16:43] LABS: ALKALINE PHOSPHATASE 147 U/L (45-117); TOTAL BILIRUBIN ADULT 0.4 MG/DL (0.2-1.0); TOTAL PROTEIN 7.5 GM/DL (6.4-8.2); TROPONIN I LESS THAN 0.02 NG/ML (0.02-0.05)
--- NOTE | 2017-09-16 17:04 | PD ---
HPI Chief Complaint: Cold / Flu Symptoms Time Seen by Provider: 14:56 Travel History International Travel<30 days: No Contact w/Intl Traveler<30days: No Traveled to known affect area: No History of Present Illness HPI 67-year-old male that presents to the ED via ambulance for evaluation of cold- like symptoms. History is somewhat limited because patient has a history of schizophrenia as well as what appears to be dementia. Patient is for the most part nonverbal and doesn't really answer any questions. He does appear to answer to voice and opens his eyes but he doesn't really provide any information to me. Per report given to me by ED nurse and ambulance report he was seen for cold-like symptoms that the [facility] and was sent here for evaluation. Unclear as to what they were worried about. He doesn't really provide any information so history is limited. Paperwork provided by [facility] is not really helpful other than apparently patient is requiring a new power of corporate associate attorney. Patient himself appears to be no complaints of his bowels appear to be stable. He does have some mild cough and per the history he lives at an [facility]. PFS Past Medical History Arthritis: No Asthma: No Atrial Fibrillation: Yes Bipolar Disorder: Yes Anxiety: Yes Depression: Yes Heart Rhythm Problems: Yes Cardiovascular Problems: Yes High Cholesterol: Yes Chest Pain: No Congestive Heart Failure: No COPD: Yes Cerebrovascular Accident: No Dementia: Yes Diabetes: Yes Diminished Hearing: No Endocrine: Yes Gastrointestinal Disorders: Yes GERD: Yes Genitourinary: No Headaches: No (See EMR) Hiatal Hernia: No Hypertension: Yes Immune Disorder: No Implanted Vascular Access Dvce: No Musculoskeletal: No Neurologic: Yes Psychiatric: Yes (Hx of treatment for Schizoaffective Disorder) Reproductive: No Respiratory: Yes Immunizations Current: Yes Migraines: No Pneumonia: Yes Schizophrenia: Yes Sleep Apnea: No Thyroid Disease: No Triglycerides - High: Yes Ulcer: No PNEUMOCCOCAL Vaccine (Year): 2 Past Surgical History Abdominal Surgery: No Cardiac Surgery: No Ear Surgery: No Endocrine Surgery: Yes (DM) Eye Surgery: No Gynecologic Surgery: No Neurologic Surgery: No Oral Surgery: No Thoracic Surgery: No Other Surgery: Yes Family History Family Hypercholesterolemia: Yes Social History Alcohol Use: No (unable to obtain) Tobacco Use: Yes (1 PACK PER DAY) Substance Use: No (unable to obtain) Allergies-Medications (Allergen,Severity, Reaction): Coded Allergies: calamine (Unverified Allergy, Severe, Rash, 07/06/17) olanzapine (Unverified Adverse Reaction, Severe, THROMBOCYTOPENIA, ) Reported Meds & Prescriptions Reported Meds & Active Scripts Active Pantoprazole (Pantoprazole Sodium) 40 Mg Tab 40 Mg PO Q12HR Medrol Dosepak (Methylprednisolone) 4 Mg Dspk 4 Mg PO DIRECTED Per Pharmacist direction Symbicort Inh (Budesonide/Formoterol Fumarate) 160-4.5 Mcg/Act Aero 1 Puff INH Q12HR Geodon (Ziprasidone) 40 Mg Cap 40 Mg PO BID Haloperidol Liq (Haloperidol Lactate) 2 Mg/Ml Conc 5 Mg PO BID Cardizem (Diltiazem HCl) 30 Mg Tab 30 Mg PO QID Haloperidol Inj (Haloperidol Lactate) 5 Mg/Ml Inj 1 Ml IM UP TO BID, PRN 30 Days Reported Geodon (Ziprasidone) 60 Mg Cap 60 Mg PO BID Metformin (Metformin HCl) 1,000 Mg Tab 1,000 Mg PO DAILY With a meal Haloperidol Liq (Haloperidol Lactate) 2 Mg/Ml Conc 12.5 Mg PO BID Benztropine (Benztropine Mesylate) 0.5 Mg Tab 2 Mg PO DAILY Aspirin 325 Mg Tab 325 Mg PO DAILY Review of Systems ROS Limitations: Poor Historian Except as stated in HPI: all other systems reviewed are Neg Physical Exam Exam Limitations: Poor Historian Narrative GENERAL: SKIN: Warm and dry. Very petiche. HEAD: Atraumatic. Normocephalic. EYES: Pupils equal and round. No scleral icterus. No injection or drainage. ENT: No nasal bleeding or discharge. Mucous membranes pink and moist. Tongue is midline. No uvula deviation. NECK: Trachea midline. No JVD. CARDIOVASCULAR: Regular rate and rhythm. No murmurs, S3, S4. RESPIRATORY: No accessory muscle use. Clear to auscultation. Breath sounds equal bilaterally. GASTROINTESTINAL: Abdomen soft, non-tender, nondistended. Hepatic and splenic margins not palpable. MUSCULOSKELETAL: Extremities without clubbing, cyanosis, or edema. No obvious deformities. Full range of motion of the upper and lower extremity bilaterally. 2+ pulses bilaterally. NEUROLOGICAL: Awake and alert. No obvious cranial nerve deficits. Motor grossly within normal limits. Five out of 5 muscle strength in the arms and legs. Normal speech. PSYCHIATRIC: Appropriate mood and affect; insight and judgment normal. Data Data Last Documented VS Vital Signs Date Time Temp Pulse Resp B/P (MAP) Pulse Ox O2 Delivery O2 Flow Rate FiO2 09/16/17 15:45 96 Room Air 09/16/17 15:45 2.00 09/16/17 14:51 98.6 91 24 140/71 (94) Orders Orders Complete Blood Count With Diff (09/16/17 15:07) Comprehensive Metabolic Panel (09/16/17 15:07) Ckmb (Isoenzyme) Profile (09/16/17 15:07) Troponin I (09/16/17 15:07) B-Type Natriuretic Peptide (09/16/17 15:07) Prothrombin Time / Inr (Pt) (09/16/17 15:07) Act Partial Throm Time (Ptt) (09/16/17 15:07) Blood Culture (09/16/17 15:07) Magnesium (Mg) (09/16/17 15:07) Influenzae A/B Antigen (09/16/17 15:07) Chest, Single Ap (09/16/17 15:07) Iv Access Insert/Monitor (09/16/17 15:07) Ecg Monitoring (09/16/17 15:07) Oximetry (09/16/17 15:07) Lactic Acid Sepsis Protocol (09/16/17 15:07) CKMB (09/16/17 15:35) CKMB% (09/16/17 15:35) Albuterol-Ipratropium Neb (Duoneb Neb) (09/16/17 17:15) Ct Brain W/O Iv Contrast(Rout) (09/16/17 ) Urinalysis - C+S If Indicated (09/16/17 19:11) Admit Order (Ed Use Only) (09/16/17 19:12) Labs Laboratory Tests Test 09/16/17 15:35 White Blood Count 9.8 TH/MM3 Red Blood Count 4.04 MIL/MM3 Hemoglobin 12.1 GM/DL Hematocrit 36.7 % Mean Corpuscular Volume 90.8 FL Mean Corpuscular Hemoglobin 29.9 PG Mean Corpuscular Hemoglobin Concent 32.9 % Red Cell Distribution Width 15.7 % Platelet Count 406 TH/MM3 Mean Platelet Volume 6.7 FL Neutrophils (%) (Auto) 79.0 % Lymphocytes (%) (Auto) 10.8 % Monocytes (%) (Auto) 9.4 % Eosinophils (%) (Auto) 0.0 % Basophils (%) (Auto) 0.8 % Neutrophils # (Auto) 7.7 TH/MM3 Lymphocytes # (Auto) 1.1 TH/MM3 Monocytes # (Auto) 0.9 TH/MM3 Eosinophils # (Auto) 0.0 TH/MM3 Basophils # (Auto) 0.1 TH/MM3 CBC Comment DIFF FINAL Differential Comment Prothrombin Time 10.1 SEC Prothromb Time International Ratio 1.0 RATIO Activated Partial Thromboplast Time 30.8 SEC Blood Urea Nitrogen 38 MG/DL Creatinine 0.99 MG/DL Random Glucose 134 MG/DL Total Protein 7.5 GM/DL Albumin 2.7 GM/DL Calcium Level 9.1 MG/DL Magnesium Level 2.4 MG/DL Alkaline Phosphatase 147 U/L Aspartate Amino Transf (AST/SGOT) 44 U/L Alanine Aminotransferase (ALT/SGPT) 25 U/L Total Bilirubin 0.4 MG/DL Sodium Level 139 MEQ/L Potassium Level 5.5 MEQ/L Chloride Level 105 MEQ/L Carbon Dioxide Level 25.7 MEQ/L Anion Gap 8 MEQ/L Estimat Glomerular Filtration Rate 75 ML/MIN Lactic Acid Level 1.4 mmol/L Total Creatine Kinase 245 U/L Creatine Kinase MB 2.7 NG/ML Troponin I LESS THAN 0.02 NG/ML B-Type Natriuretic Peptide 13 PG/ML MDM Medical Decision Making Medical Screen Exam Complete: Yes Emergency Medical Condition: Yes Medical Record Reviewed: Yes Interpretation(s) CBC & BMP Diagram 09/16/17 15:35 Total Protein 7.5, Albumin 2.7 L, Calcium Level 9.1, Magnesium Level 2.4, Alkaline Phosphatase 147 H, Aspartate Amino Transf (AST/SGOT) 44 H, Alanine Aminotransferase (ALT/SGPT) 25, Total Bilirubin 0.4 troponin and CKMB WNL BNP WNL EKG shows sinus rhythm with no sign of acute ischemia or arryhtmia. Read by me and attending. Last Impressions Chest X-Ray 09/16/17 1507 Signed Impressions: Service Date/Time: Saturday, September 16, 2017 15:15 - CONCLUSION: COPD; no evidence of consolidating airspace disease or acute congestion. Yazan Ocasio MD Head CT 09/16/17 0000 Signed Impressions: Service Date/Time: Saturday, September 16, 2017 17:48 - CONCLUSION: No acute intracranial abnormality. Pansinusitis. Ravi Head MD Differential Diagnosis Influenza versus cold-like symptoms versus atrial fibrillation versus COPD versus CHF exacerbation versus renal injury versus sepsis versus dementia versus altered mental status Narrative Course 67-year-old male that presents to the ED for evaluation of possible cold-like symptoms. Again history is limited because of patient's mental status and a really good history is provided by either the ambulance or by the patient himself. Labs and imaging were ordered. ED nurse has attempted to speak with [facility] to see [facility]. Labs and imaging here were essentially unremarkable other than for chronic illness. Case discussed with my attending Dr. Cai who agrees to admission. Case was discussed with Dr. Momin who agrees to admission who wants UA done. UA was ordered by me. Diagnosis Primary Impression: Altered mental status Qualified Codes: R41.82 - Altered mental status, unspecified Additional Impression: Schizophrenia Qualified Codes: F20.9 - Schizophrenia, unspecified Admitting Information Admitting Physician Requests: Jae Zamarripa Sep 16, 2017 17:04
[2017-09-16] MEDS ORDERED: RESP: ALBUTEROL 2.5 MG/IPRATROPIUM 0.5 MG NEB (SCH) INH ONE (17:15)
--- NOTE | 2017-09-16 18:11 | RADRPT ---
EXAM DATE/TIME: 09/16/2017 17:48 [facility] COMPARISON: CT BRAIN W/O CONTRAST, July 06, 2017, 12:08. INDICATIONS : Altered mental status. RADIATION DOSE: 56.35 CTDIvol (mGy) MEDICAL HISTORY : Cardiovascular disease. Chronic obstructive pulmonary disease. Diabetes mellitus type 1. SURGICAL HISTORY : None. ENCOUNTER: Initial ACUITY: 1 day PAIN SCALE: 0/10 LOCATION: cranial TECHNIQUE: Multiple contiguous axial images were obtained of the head. Using automated exposure control and adj ustment of the mA and/or kV according to patient size, radiation dose was kept as low as reasonably a chievable to obtain optimal diagnostic quality images. DICOM format image data is available electro nically for review and comparison. FINDINGS: CEREBRUM: The ventricles are normal for age. No evidence of midline shift, mass lesion, hemorrhage or acute in farction. No extra-axial fluid collections are seen. Chronic low attenuation again seen in the periv entricular white matter. POSTERIOR FOSSA: The cerebellum and brainstem are intact. The 4th ventricle is midline. The cerebellopontine angle i s unremarkable. EXTRACRANIAL: Mucoperiosteal thickening as developed of the paranasal sinuses, diffuse that it especially the ethmo id air cells. SKULL: The calvaria is intact. No evidence of skull fracture. CONCLUSION: No acute intracranial abnormality. Pansinusitis. Ravi Head MD on September 16, 2017 at 18:08 Board Certified Radiologist. This report was verified electronically.
[2017-09-16] MEDS ORDERED: RESP: ALBUTEROL 2.5 MG/IPRATROPIUM 0.5 MG NEB (PRN) NEB (20:00)
[2017-09-16] MEDS ORDERED: GLUCAGON 1 MG/ML VIAL OTHER PRN (20:00)
[2017-09-16] MEDS ORDERED: DEXTROSE 50% IN WATER 50 ML VIAL(D50) IV PUSH PRN (20:00)
[2017-09-16 20:01] VITALS: BP 122/75; PULSE 90; RESP 18; O2SAT 93
[2017-09-16] MEDS: PANTOPRAZOLE SOD 40 MG DELAYED RELEASE TAB PO SCH (21:00)
[2017-09-16] MEDS: HALOPERIDOL LACTATE ORAL CONC 10 MG/5 ML CUP PO SCH (21:00)
[2017-09-16] MEDS: ZIPRASIDONE HCL 40 MG CAP PO SCH (21:00)
[2017-09-16] MEDS: DILTIAZEM HCL 30 MG TAB PO SCH (21:00)
[2017-09-16] MEDS: INSULIN ASPART SUPPLEMENTAL SCALE SQ SCH (21:00)
[2017-09-16] MEDS: BUDESONIDE-FORMOTEROL 160/4.5 MCG INHALER INH SCH (21:00)
--- NOTE | 2017-09-16 21:45 | HHI.HP ---
[facility] Service [facility] Primary Care Physician [facility] Admission Diagnosis altered mental status, schizophrenia Diagnoses: Travel History International Travel<30 Days: No Contact w/Intl Traveler <30 Da: No Traveled to Known Affected Are: No History of Present Illness 67-year-old male with a past medical history significant for paranoid schizophrenia with behavioral disturbances, recently diagnosed urothelial cancer , dementia, type 2 diabetes mellitus, COPD, A. fib on ASA, hyperlipidemia and hypertension was brought to the emergency department via back for evaluation of cold-like symptoms. The patient will track with his eyes to voice however does not follow commands and does not answer questions. No significant lab abnormalities, patient with hyperkalemia of 5.5. Review of Systems Unable to obtain secondary to patient's clinical condition Past Family Social History Past Medical History (Obtained from medical records) Type 2 diabetes Schizophrenia COPD Chronic A. fib Hyperlipidemia Hypertension Past Surgical History Previous trach Left thoracotomy Laparotomy Reported Medications Reported Meds & Active Scripts Active Pantoprazole (Pantoprazole Sodium) 40 Mg Tab 40 Mg PO Q12HR Medrol Dosepak (Methylprednisolone) 4 Mg Dspk 4 Mg PO DIRECTED Per Pharmacist direction Symbicort Inh (Budesonide/Formoterol Fumarate) 160-4.5 Mcg/Act Aero 1 Puff INH Q12HR Geodon (Ziprasidone) 40 Mg Cap 40 Mg PO BID Haloperidol Liq (Haloperidol Lactate) 2 Mg/Ml Conc 5 Mg PO BID Cardizem (Diltiazem HCl) 30 Mg Tab 30 Mg PO QID Haloperidol Inj (Haloperidol Lactate) 5 Mg/Ml Inj 1 Ml IM UP TO BID, PRN 30 Days Reported Geodon (Ziprasidone) 60 Mg Cap 60 Mg PO BID Metformin (Metformin HCl) 1,000 Mg Tab 1,000 Mg PO DAILY With a meal Haloperidol Liq (Haloperidol Lactate) 2 Mg/Ml Conc 12.5 Mg PO BID Benztropine (Benztropine Mesylate) 0.5 Mg Tab 2 Mg PO DAILY Aspirin 325 Mg Tab 325 Mg PO DAILY Allergies: Coded Allergies: calamine (Unverified Allergy, Severe, Rash, 07/06/17) olanzapine (Unverified Adverse Reaction, Severe, THROMBOCYTOPENIA, ) Family History Unable to obtain Social History long term resident, smokes 1 pack of cigarettes per day Physical Exam Vital Signs Vital Signs Date Time Temp Pulse Resp B/P (MAP) Pulse Ox O2 Delivery O2 Flow Rate FiO2 09/16/17 20:01 90 18 122/75 (91) 93 Nasal Cannula 2.00 09/16/17 15:45 96 Room Air 09/16/17 15:45 96 Nasal Cannula 2.00 09/16/17 14:51 98.6 91 24 140/71 (94) 91 Physical Exam GENERAL: male lying in bed SKIN: No rashes, ecchymoses or lesions. Cool and dry. HEAD: Atraumatic. Normocephalic. No temporal or scalp tenderness. EYES: Pupils equal round and reactive. Extraocular motions intact. No scleral icterus. No injection or drainage. ENT: Nose without bleeding, purulent drainage or septal hematoma. Airway patent. NECK: Trachea midline. No JVD or lymphadenopathy. Supple, nontender, no meningeal signs. CARDIOVASCULAR: Regular rate and rhythm without murmurs, gallops, or rubs. RESPIRATORY: Clear to auscultation. Breath sounds equal bilaterally. No wheezes , rales, or rhonchi. GASTROINTESTINAL: Abdomen soft, nondistended. No hepato-splenomegaly, or palpable masses. No guarding. MUSCULOSKELETAL: Extremities without clubbing, cyanosis, or edema. No joint tenderness, effusion, or edema noted. NEUROLOGICAL: Patient will open his eyes and tracks to voice. Does not answer any questions. Does not follow commands. Unclear baseline. Laboratory Laboratory Tests Test 09/16/17 15:35 White Blood Count 9.8 Red Blood Count 4.04 Hemoglobin 12.1 Hematocrit 36.7 Mean Corpuscular Volume 90.8 Mean Corpuscular Hemoglobin 29.9 Mean Corpuscular Hemoglobin Concent 32.9 Red Cell Distribution Width 15.7 Platelet Count 406 Mean Platelet Volume 6.7 Neutrophils (%) (Auto) 79.0 Lymphocytes (%) (Auto) 10.8 Monocytes (%) (Auto) 9.4 Eosinophils (%) (Auto) 0.0 Basophils (%) (Auto) 0.8 Neutrophils # (Auto) 7.7 Lymphocytes # (Auto) 1.1 Monocytes # (Auto) 0.9 Eosinophils # (Auto) 0.0 Basophils # (Auto) 0.1 CBC Comment DIFF FINAL Differential Comment Prothrombin Time 10.1 Prothromb Time International Ratio 1.0 Activated Partial Thromboplast Time 30.8 Blood Urea Nitrogen 38 Creatinine 0.99 Random Glucose 134 Total Protein 7.5 Albumin 2.7 Calcium Level 9.1 Magnesium Level 2.4 Alkaline Phosphatase 147 Aspartate Amino Transf (AST/SGOT) 44 Alanine Aminotransferase (ALT/SGPT) 25 Total Bilirubin 0.4 Sodium Level 139 Potassium Level 5.5 Chloride Level 105 Carbon Dioxide Level 25.7 Anion Gap 8 Estimat Glomerular Filtration Rate 75 Lactic Acid Level 1.4 Total Creatine Kinase 245 Creatine Kinase MB 2.7 Troponin I LESS THAN 0.02 B-Type Natriuretic Peptide 13 Date/Time Source Procedure Growth Status 09/16/17 15:42 Blood Peripheral Aerobic Blood Culture Pending Received 09/16/17 15:42 Blood Peripheral Anaerobic Blood Culture Pending Received 09/16/17 16:05 Nasal Washing Influenza Types A,B Antigen (GERALD) - Final NEGATIVE FOR FLU A AND B ANTIGEN.... Complete Result Diagram: 09/16/17 1535 09/16/17 1535 Caprini VTE Risk Assessment Caprini VTE Risk Assessment: Mod/High Risk (score >= 2) Caprini Risk Assessment Model Point Value = 1 Point Value = 2 Point Value = 3 Point Value = 5 Age 41-60 Minor surgery BMI > 25 kg/m2 Swollen legs Varicose veins or History of unexplained or recurrent spontaneous Oral contraceptives or hormone replacement Sepsis (< 1 month) Serious lung disease, including pneumonia (< 1 month) Abnormal pulmonary function Acute myocardial infarction Congestive heart failure (< 1 month) History of inflammatory bowel disease Medical patient at bed rest Age 61-74 Arthroscopic surgery Major open surgery (> 45 min) Laparoscopic surgery (> 45 min) Malignancy Confined to bed (> 72 hours) Immobilizing plaster cast Central venous access Age >= 75 History of VTE Family history of VTE Factor V Leiden Prothrombin [id number] Lupus anticoagulant Anticardiolipin antibodies Elevated serum homocysteine Heparin-induced thrombocytopenia Other congenital or acquired thrombophilia Stroke (< 1 month) Elective arthroplasty Hip, pelvis, or leg fracture Acute spinal cord injury (< 1 month) Prophylaxis Regimen Total Risk Factor Score Risk Level Prophylaxis Regimen 0-1 Low Early ambulation 2 Moderate Order ONE of the following: *Sequential Compression Device (SCD) *Heparin 5000 units SQ BID 3-4 Higher Order ONE of the following medications: *Heparin 5000 units SQ TID *Enoxaparin/Lovenox 40 mg SQ daily (WT < 150 kg, CrCl > 30 mL/min) *Enoxaparin/Lovenox 30 mg SQ daily (WT < 150 kg, CrCl > 10-29 mL/min) *Enoxaparin/Lovenox 30 mg SQ BID (WT < 150 kg, CrCl > 30 mL/min) AND/OR *Sequential Compression Device (SCD) 5 or more Highest Order ONE of the following medications: *Heparin 5000 units SQ TID (Preferred with Epidurals) *Enoxaparin/Lovenox 40 mg SQ daily (WT < 150 kg, CrCl > 30 mL/min) *Enoxaparin/Lovenox 30 mg SQ daily (WT < 150 kg, CrCl > 10-29 mL/min) *Enoxaparin/Lovenox 30 mg SQ BID (WT < 150 kg, CrCl > 30 mL/min) AND *Sequential Compression Device (SCD) Assessment and Plan Assessment and Plan Assessment/plan: 1. Altered mental status Per report from ER PA, patient supposedly verbal at baseline often disoriented but will engage in conversation UA pending, patient with history of multiple UTIs with Klebsiella Head CT with no acute intracranial abnormality Brain MRI pending Patient may require neurology consult if mental status does not improve 2. Urothelial cancer Patient followed at the [facility], records requested Cr 0.99 CT abd/pelvis pending - may need Urology consult 3. Atrial fibrillation Continue home aspirin, diltiazem 4. Schizophrenia Continue home Haldol, Geodon 5. Diabetes mellitus SSI Monitor blood glucose 6. COPD DuoNebs FEN Heart healthy diet after swallow eval Electrolytes: monitor and replete prn SCDs Fernanda Momin MD Sep 16, 2017 21:45
--- NOTE | 2017-09-16 22:26 | RADRPT ---
EXAM DATE/TIME: 09/16/2017 21:58 [facility] COMPARISON: CT ABDOMEN & PELVIS W CONTRAST, July 13, 2017, 18:15. INDICATIONS : Abdomen pain. ORAL CONTRAST: No oral contrast ingested. RADIATION DOSE: 6.65 CTDIvol (mGy) MEDICAL HISTORY : Carcinoma, bladder. SURGICAL HISTORY : None. ENCOUNTER: Initial ACUITY: 1 day PAIN SCALE: 5/10 LOCATION: Bilateral abdomen TECHNIQUE: Volumetric scanning of the abdomen and pelvis was performed. Using automated exposure control and ad justment of the mA and/or kV according to patient size, radiation dose was kept as low as reasonably achievable to obtain optimal diagnostic quality images. DICOM format image data is available electro nically for review and comparison. FINDINGS: LOWER LUNGS: The visualized lower lungs are clear. LIVER: Homogeneous density without lesion. There is no dilation of the biliary tree. No calcified gallston es. SPLEEN: Normal size without lesion. PANCREAS: Chronic head calcification again noted. No acute inflammatory changes. KIDNEYS: Normal in size and shape. There is no mass, stone, or hydronephrosis. ADRENAL GLANDS: Within normal limits. VASCULAR: There is no aortic aneurysm. BOWEL/MESENTERY: The stomach, small bowel, and colon demonstrate no acute abnormality. There is no free intraperitone al air or fluid. ABDOMINAL WALL: Within normal limits. RETROPERITONEUM: There is no lymphadenopathy. BLADDER: Right posterolateral bladder wall mass is larger than before, currently 4.7 x 6.5 cm. REPRODUCTIVE: Within normal limits. INGUINAL: There is no lymphadenopathy or hernia. MUSCULOSKELETAL: No acute bony abnormality demonstrated. CONCLUSION: 1. No acute abnormality. 2. Large bladder wall mass again demonstrated, measures larger than before. 3. Evidence of chronic pancreatitis. No acute inflammatory changes are seen. 4. Previous cholecystectomy. Ravi Head MD on September 16, 2017 at 22:21 Board Certified Radiologist. This report was verified electronically.
--- NOTE | 2017-09-16 22:32 | RADRPT ---
EXAM DATE/TIME: 09/16/2017 21:45 [facility] COMPARISON: CT BRAIN W/O CONTRAST, September 16, 2017, 17:48. INDICATIONS : Altered mental status. MEDICAL HISTORY : Dementia. Hypercholesterolemia. Hypertension. Schizoaffective disorder, COPD, Diabetes. SURGICAL HISTORY : Cholecystectomy. ENCOUNTER: Initial ACUITY: 1 day PAIN SCORE: Nonresponsive. LOCATION: Bilateral cranial TECHNIQUE: Multiplanar, multisequence MRI of the brain was performed without contrast. FINDINGS: Motion degraded study. CEREBRUM: The ventricles are normal for age. No evidence of midline shift, mass lesion, hemorrhage or acute in farction. No extraaxial fluid collections are seen. The pituitary gland and suprasellar cistern are normal in configuration. WHITE MATTER: Moderate severity chronic flair signal abnormality seen in the white matter of both cerebral hemisphe res. POSTERIOR FOSSA: The cerebellum and brainstem are intact. The 4th ventricle is midline. The cerebellopontine angle is unremarkable. The cerebellar tonsils are normal in position. DIFFUSION IMAGING: No focal areas of restricted diffusion are seen. No evidence of acute infarction. EXTRACRANIAL: There is mucoperiosteal thickening seen of the visualized paranasal sinuses. No fluid levels are demo nstrated. CONCLUSION: Chronic white matter changes. No acute intracranial abnormality demonstrated. Ravi Head MD on September 16, 2017 at 22:28 Board Certified Radiologist. This report was verified electronically.
[2017-09-16 23:09] LABS: AMORPHOUS SEDIMENT, URINE RARE; BACTERIA, URINE MANY /hpf; BILIRUBIN, URINE NEG (NEG); BLOOD, URINE LARGE (NEG); GLUCOSE,URINE NEG (NEG); KETONE, URINE 40 mg/dL (NEG); MUCUS URINE FEW /lpf (OCC); NITRITE,URINE NEG (NEG); TRANSITIONAL EPI CELLS, URINE 17 /hpf; URINE COLOR YELLOW (YELLW/STRAW); URINE LEUKOCYTE ESTERASE LARGE (NEG); WHITE BLOOD CELL CLUMPS MANY
[2017-09-17 03:33] VITALS: BP 121/70; PULSE 91; RESP 18; TEMP 99; O2SAT 95
[2017-09-17 07:33] VITALS: BP 139/71; PULSE 100; RESP 18; TEMP 98.1; O2SAT 92
[2017-09-17] MEDS ORDERED: ASPIRIN 325 MG TAB PO SCH (09:00)
[2017-09-17] MEDS: INSULIN ASPART SUPPLEMENTAL SCALE SQ SCH ×4 (09:39→22:52)
[2017-09-17] MEDS: BUDESONIDE-FORMOTEROL 160/4.5 MCG INHALER INH SCH ×2 (09:39→22:51)
[2017-09-17] MEDS: cefTRIAXone INJ 1,000 MG in SODIUM CHLORIDE 0.9% INJ 100 ML IV SCH (09:40)
[2017-09-17] MEDS: LACTOBACILLUS ACIDOPHILUS TAB PO SCH ×3 (09:40→17:38)
[2017-09-17] MEDS: ZIPRASIDONE HCL 40 MG CAP PO SCH ×2 (09:40→22:51)
[2017-09-17] MEDS: DILTIAZEM HCL 30 MG TAB PO SCH ×4 (09:40→22:51)
[2017-09-17] MEDS: HALOPERIDOL LACTATE ORAL CONC 10 MG/5 ML CUP PO SCH ×2 (09:40→22:51)
[2017-09-17] MEDS: PANTOPRAZOLE SOD 40 MG DELAYED RELEASE TAB PO SCH ×2 (09:40→22:51)
--- NOTE | 2017-09-17 10:56 | HHI.PR ---
Subjective Remarks No improvement in mental status. Urinary tract infection is present based on urinalysis. Etiology for his current mental state is metabolic encephalopathy related to his urinary tract infection. His schizophrenia compounds this problem. Objective Vital Signs Date Time Temp Pulse Resp B/P (MAP) Pulse Ox O2 Delivery O2 Flow Rate FiO2 09/17/17 07:33 98.1 100 18 139/71 (93) 92 09/17/17 03:33 99.0 91 18 121/70 (87) 95 09/16/17 23:09 09/16/17 20:01 90 18 122/75 (91) 93 Nasal Cannula 2.00 09/16/17 15:45 96 Room Air 09/16/17 15:45 96 Nasal Cannula 2.00 09/16/17 14:51 98.6 91 24 140/71 (94) 91 Result Diagram: 09/16/17 1535 09/16/17 1535 Objective Remarks GENERAL: NAD, A&Ox0 HEAD: Normocephalic. NECK: Supple, trachea midline. No lymphadenopathy. EYES: No scleral icterus. No injection or drainage. CARDIOVASCULAR: Regular rate and rhythm without murmurs, gallops, or rubs. RESPIRATORY: Breath sounds equal bilaterally. No accessory muscle use. GASTROINTESTINAL: Abdomen soft, non-tender, nondistended. MUSCULOSKELETAL: No cyanosis, or edema. SKIN: Warm and dry. NEURO: No focal neurological deficitis. A/P Problem List: (1) Metabolic encephalopathy ICD Code: G93.41 - Metabolic encephalopathy (2) Urinary tract infection ICD Code: N39.0 - Urinary tract infection, site not specified (3) Dementia ICD Code: F03.90 - Dementia Status: Chronic (4) Altered mental status ICD Code: R41.82 - Altered mental status, unspecified Status: Acute (5) Schizophrenia ICD Code: F20.9 - Schizophrenia, unspecified Status: Acute Assessment and Plan Assessment and plan 67-year-old male admitted secondary to metabolic encephalopathy related to urinary tract infection. Metabolic encephalopathy related to urinary tract infection Altered mental status Continue supportive care Treat urinary tract infection No acute abnormalities on brain imaging Urinary tract infection Continue Rocephin Follow urine cultures Urothelial cancer Likely contributory to UTI Continue monitoring and follow-up as an outpatient Atrial fibrillation Continue aspirin Continue diltiazem Schizophrenia Continue Haldol Continue Geodon This condition is likely also exacerbated by his metabolic encephalopathy Diabetes mellitus type 2 Follow blood sugars Insulin sliding scale Diabetic diet COPD Continue duo nebs DVT prophylaxis Continue SCDs Problem Qualifiers (1) Altered mental status: Qualified Codes: R41.82 - Altered mental status, unspecified (2) Schizophrenia: Qualified Codes: F20.9 - Schizophrenia, unspecified Juan Quezada MD Sep 17, 2017 10:56
--- NOTE | 2017-09-17 11:46 | PD.WCN.NOT ---
Wound Consult Description: Wound consult ordered by for Sacrum Communicated with: Fern YI G pod, Recommendation: 1) Please reposition patient every 2 hours for offloading and comfort. 2) Cleanse sacral wound with normal saline pat dry, skin prep to periwound. 3) Apply Maxsorb 2 cut to fit wound base. 4) Cover with dry dressing (boarder gauze) or 4x4 Optifoam. 5) Change dressing every 5-7 days or as needed for visible exudate. Additional Information: Patient was seen today by typewriter operator automatic in G pod for sacral wound.Fern YI G pod present with typewriter operator automatic. Moderate assistance needed to reposition patient to left side. Optifoam removed to expose stage 3 pressure injury to Right sacrum.Wound cleansed with normal saline wound base is pink/beefy red clean with granular tissue present~25% no odor present no signs or symptoms of infection wound edges even round.Wound measures 3.2cm x 2.6cm x 0.3cm no tunneling or undermining noted.Skin prep applied to periwound Maxsorb cut to fit wound base applied covered with 4x4 Optifoam boarder signed and dated.Patient tolerated wound care well.Patient was repositioned onto left side.disposable moisture control pad placed under patient. [facility] Br[facility]field [facility] Sep 17, 2017 11:46
[2017-09-17 12:50] VITALS: BP 140/63; PULSE 100; RESP 20; TEMP 98.9; O2SAT 91
[2017-09-17] MEDS: guaiFENesin SOLUTION 200 MG/10 ML CUP PO PRN ×2 (13:50→17:42)
[2017-09-17 16:52] VITALS: BP 119/66; PULSE 89; RESP 18; TEMP 98; O2SAT 93
[2017-09-17 22:03] VITALS: BP 127/58; PULSE 68; RESP 18; TEMP 98.5; O2SAT 97
[2017-09-18] VITALS (10 sets, daily range): BP systolic 111–129; BP diastolic 52–71; PULSE 79–92; RESP 16–24; TEMP 97.6–99.2; O2SAT 88–98
[2017-09-18 06:58] LABS: AUTOMATED NEUTROPHIL # 9.1 TH/MM3 (1.8-7.7); BASOPHIL % 0.3 % (0.0-2.0); EOSINOPHIL % 0.2 % (0.0-4.0); HEMATOCRIT 34.8 % (39.0-51.0); HEMOGLOBIN 11.5 GM/DL (13.0-17.0); LYMPH % 10.8 % (9.0-44.0); LYMPHOCYTE # 1.2 TH/MM3 (1.0-4.8); MEAN CELL VOLUME 89.6 FL (80.0-100.0); MEAN CORPUSCULAR HEMOGLOBIN 29.6 PG (27.0-34.0); MEAN CORPUSCULAR HGB CONC 33.1 % (32.0-36.0); MEAN PLATELET VOLUME 6.7 FL (7.0-11.0); MONO % 9.8 % (0.0-8.0); MONOCYTE # 1.1 TH/MM3 (0-0.9); NEUT % 78.9 % (16.0-70.0); PLATELET COUNT 375 TH/MM3 (150-450); RED BLOOD COUNT 3.88 MIL/MM3 (4.50-5.90); RED CELL DISTRIBUTION WIDTH 15.8 % (11.6-17.2); WHITE BLOOD COUNT 11.5 TH/MM3 (4.0-11.0)
[2017-09-18 07:30] LABS: ALBUMIN 2.6 GM/DL (3.4-5.0); ALKALINE PHOSPHATASE 126 U/L (45-117); ALT (GPT) 19 U/L (12-78); AST (GOT) 21 U/L (15-37); BICARBONATE 24.3 MEQ/L (21.0-32.0); BLOOD UREA NITROGEN 36 MG/DL (7-18); CALCIUM 9.2 MG/DL (8.5-10.1); CHLORIDE 105 MEQ/L (98-107); CREATININE 0.74 MG/DL (0.60-1.30); GLOMERULAR FILTRATION RATE 106 ML/MIN (>89); GLUCOSE,RANDOM 161 MG/DL (74-106); SODIUM (NA) 140 MEQ/L (136-145); TOTAL BILIRUBIN ADULT 0.4 MG/DL (0.2-1.0); TOTAL PROTEIN 7.2 GM/DL (6.4-8.2)
[2017-09-18] MEDS: INSULIN ASPART SUPPLEMENTAL SCALE SQ SCH ×4 (08:00→21:00)
--- NOTE | 2017-09-18 10:04 | HHI.PR ---
Subjective Remarks No significant improvement after 24 hours of treatment. Increasing suspicion for schizophrenic catatonia. Patient is not communicating and has poor motor function. At baseline and is reported that he is able to communicate and despite having chronically compromised motor function he is able to move better than presently. Objective Vital Signs Date Time Temp Pulse Resp B/P (MAP) Pulse Ox O2 Delivery O2 Flow Rate FiO2 09/18/17 08:06 99.1 86 18 129/70 (89) 92 09/18/17 04:22 98.4 90 18 113/62 (79) 97 09/18/17 01:00 97.9 79 18 122/69 (86) 98 09/17/17 22:03 98.5 68 18 127/58 (81) 97 09/17/17 16:52 98.0 89 18 119/66 (83) 93 09/17/17 12:50 98.9 100 20 140/63 (88) 91 I/O 09/17/17 09/17/17 09/17/17 09/18/17 09/18/17 09/18/17 07:00 15:00 23:00 07:00 15:00 23:00 Intake Total 100 ml Balance 100 ml IV Total 100 ml # Voids 1 2 Result Diagram: 09/18/17 0600 09/18/17 0600 Objective Remarks GENERAL: NAD, A&Ox0, unable to communicate. HEAD: Normocephalic. NECK: Supple, trachea midline. No lymphadenopathy. EYES: No scleral icterus. No injection or drainage. CARDIOVASCULAR: Regular rate and rhythm without murmurs, gallops, or rubs. RESPIRATORY: Breath sounds equal bilaterally. No accessory muscle use. GASTROINTESTINAL: Abdomen soft, non-tender, nondistended. MUSCULOSKELETAL: No cyanosis, or edema. Minimal movement ability. SKIN: Warm and dry. NEURO: No focal neurological deficitis. A/P Problem List: (1) Metabolic encephalopathy ICD Code: G93.41 - Metabolic encephalopathy (2) Urinary tract infection ICD Code: N39.0 - Urinary tract infection, site not specified (3) Dementia ICD Code: F03.90 - Dementia Status: Chronic (4) Altered mental status ICD Code: R41.82 - Altered mental status, unspecified Status: Acute (5) Schizophrenia ICD Code: F20.9 - Schizophrenia, unspecified Status: Acute Assessment and Plan Assessment and plan 67-year-old male admitted secondary to metabolic encephalopathy related to urinary tract infection. 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 Psychiatry consult placed. Continue to monitor cultures. 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
[2017-09-18] MEDS: HALOPERIDOL LACTATE ORAL CONC 10 MG/5 ML CUP PO SCH ×2 (10:07→21:40)
[2017-09-18] MEDS: DILTIAZEM HCL 30 MG TAB PO SCH ×4 (10:07→21:40)
[2017-09-18] MEDS: ZIPRASIDONE HCL 40 MG CAP PO SCH ×2 (10:07→21:41)
[2017-09-18] MEDS: BUDESONIDE-FORMOTEROL 160/4.5 MCG INHALER INH SCH ×2 (10:08→20:21)
[2017-09-18] MEDS: PANTOPRAZOLE SOD 40 MG DELAYED RELEASE TAB PO SCH ×2 (10:08→21:40)
[2017-09-18] MEDS: LACTOBACILLUS ACIDOPHILUS TAB PO SCH ×3 (10:10→17:17)
[2017-09-18] MEDS: cefTRIAXone INJ 1,000 MG in SODIUM CHLORIDE 0.9% INJ 100 ML IV SCH (10:43)
[2017-09-18] MEDS: LORazepam 1 MG TAB PO SCH ×2 (13:25→21:53)
--- NOTE | 2017-09-18 14:04 | PD.PSY.CON ---
Provisional Diagnosis Admission Date Sep 16, 2017 at 19:13 [place] I. Paranoid schizophrenia, dementia [place] II. Deferred [place] III. Hypertension, UTI History of Present Illness Service Psychiatry Consult Requested By ER team Reason for Consult Catatonic symptoms Primary Care Physician [facility] HPI The patient is a 66-year-old man, domiciled in a residential facility , well known by this service, with a psychiatric history of schizoaffective disorder, multiple psychiatric hospitalizations, last hospitalization here at [facility] in March 2017 under the care of Dr. Lagunas, documentation review, patient has history of agitation and aggressive behavior, he is on Haldol 12.5 mg twice a day and Geodon 40 mg twice a day, recently diagnosed urothelial cancer, type 2 diabetes mellitus, COPD, A. fib on ASA, hyperlipidemia and hypertension was brought to the emergency department for evaluation of cold- like symptoms. The patient will track with his eyes to voice however does not follow commands and does not answer questions. No significant lab abnormalities , patient with hyperkalemia of 5.5. Positive for UTI. On my examination today, the patient presents poorly cooperative, oppositional , cannabis test, rigid and with marked echopraxia. The patient repeated back all my question and did not answer any. Thought process quite disorganized. He appears frankly internally stimulated. There is paucity of speech. He does occasionally call out but otherwise just mutters unintelligibly. No posturing. No stereotypies. Affect is restricted and flat. Review of Systems Constitutional: DENIES: Diaphoretic episodes, Fatigue, Fever, Weight gain, Weight loss, Chills, Dizziness, Change in appetite, Night Sweats Endocrine: DENIES: Heat/cold intolerance, Polydipsia, Polyuria, Polyphagia Eyes: DENIES: Blurred vision, Diplopia, Eye inflammation, Eye pain, Vision loss , Photosensitivity, Double Vision Ears, nose, mouth, throat: DENIES: Tinnitus, Hearing loss, Vertigo, Nasal discharge, Oral lesions, Throat pain, Hoarseness, Ear Pain, Running Nose, Epistaxis, Sinus Pain, Toothache, Odynophagia Respiratory: DENIES: Apneas, Cough, Snoring, Wheezing, Hemoptysis, Sputum production, Shortness of breath Cardiovascular: DENIES: Chest pain, Palpitations, Syncope, Dyspnea on Exertion , PND, Lower Extremity Edema, Orthopnea, Claudication Gastrointestinal: DENIES: Abdominal pain, Black stools, Bloody stools, Constipation, Diarrhea, Nausea, Vomiting, Difficulty Swallowing, Anorexia Genitourinary: DENIES: Sexual dysfunction, Urinary frequency, Urinary incontinence, Urgency, Hematuria, Dysuria, Nocturia, Penile Discharge, Testicular Pain, Testicular Swelling Musculoskeletal: DENIES: Joint pain, Muscle aches, Stiffness, Joint Swelling, Back pain, Neck pain Integumentary: DENIES: Abnormal pigmentation, Nail changes, Pruritus, Rash Hematologic/lymphatic: DENIES: Bruising, Lymphadenopathy Immunologic/allergic: DENIES: Eczema, Urticaria Neurologic: DENIES: Abnormal gait, Headache, Localized weakness, Paresthesias, Seizures, Speech Problems, Tremor, Poor Balance Psychiatric: COMPLAINS OF: Confusion, Delusions, DENIES: Anxiety, Mood changes , Depression, Hallucinations, Agitation, Suicidal Ideation, Homicidal Ideation Past Family Social History Coded Allergies: calamine (Unverified Allergy, Severe, Rash, 07/06/17) olanzapine (Unverified Adverse Reaction, Severe, THROMBOCYTOPENIA, ) Active Scripts Pantoprazole (Pantoprazole) 40 Mg Tab, 40 MG PO Q12HR, #60 TAB Prov:Daya Lozano MD 07/22/17 Methylprednisolone Dosepak (Medrol Dosepak) 4 Mg Dspk, 4 MG PO DIRECTED, #1 DSPK 0 Refills Per Pharmacist direction Prov:Daya Lozano MD 07/22/17 Budesonide-Formoterol Inh (Symbicort Inh) 160-4.5 Mcg/Act Aero, 1 PUFF INH Q12HR , #1 INHALER Prov:Daya Lozano MD 07/22/17 Ziprasidone (Geodon) 40 Mg Cap, 40 MG PO BID, #30 CAP Prov:Daya Lozano MD 07/22/17 Haloperidol Liq (Haloperidol Liq) 2 Mg/Ml Conc, 5 MG PO BID, #150 ML Prov:Daya Lozano MD 07/22/17 Diltiazem (Cardizem) 30 Mg Tab, 30 MG PO QID, #120 TAB Prov:Daya Lozano MD 07/22/17 Haloperidol Inj (Haloperidol Inj) 5 Mg/Ml Inj, 1 ML IM up to BID, PRN for Agitation for 30 Days, #1 BOTTLE 0 Refills Prov:Edwina Bee SLAT TWISTER 06/14/17 Reported Medications Ziprasidone (Geodon) 60 Mg Cap, 60 MG PO BID, #60 CAP 0 Refills 06/13/17 Metformin (Metformin) 1,000 Mg Tab, 1000 MG PO DAILY for Blood Sugar Management , #30 TAB 0 Refills With a meal 06/13/17 Haloperidol Liq (Haloperidol Liq) 2 Mg/Ml Conc, 12.5 MG PO BID, ML 0 Refills 06/13/17 Benztropine (Benztropine) 0.5 Mg Tab, 2 MG PO DAILY, #30 TAB 0 Refills 06/13/17 Aspirin (Aspirin) 325 Mg Tab, 325 MG PO DAILY, #30 TAB 0 Refills 06/13/17 Current Medications Medications (Trade) Dose Ordered Sig/Ash[place] Route Start Time Stop Time Status Last Admin (D50w (Vial) Inj) 50 ml UNSCH PRN IV PUSH 09/16/17 20:00 (Glucagon Inj) 1 mg UNSCH PRN OTHER 09/16/17 20:00 (NovoLOG SUPPLEMENTAL SCALE) 1 ACHS SLIDING SCALE SQ 09/16/17 21:00 09/18/17 12:00 (Duoneb Neb) 1 ampule Q4HR NEB PRN NEB 09/16/17 20:00 (Aspirin) 325 mg DAILY PO 09/17/17 09:00 Future Hold (Symbicort 160-4.5 Mcg Inh) 1 puff Q12HR INH 09/16/17 21:00 09/18/17 10:08 (Cardizem) 30 mg QID PO 09/16/17 21:00 09/18/17 13:23 (Protonix) 40 mg Q12HR PO 09/16/17 21:00 09/18/17 10:08 (Geodon) 40 mg BID PO 09/16/17 21:00 09/18/17 10:07 Ceftriaxone Sodium 1000 mg/ Sodium Chloride 100 ml @ 200 mls/hr Q24H IV 09/17/17 09:00 09/18/17 10:43 (Lactinex) 1 tab TID PO 09/17/17 09:00 09/18/17 13:23 (Robitussin Liq) 200 mg Q4H PRN PO 09/17/17 13:45 09/17/17 17:42 (Ativan) 1 mg Q8HR PO 09/18/17 14:00 09/18/17 13:25 (Haldol Lactate Liq) 10 mg BID PO 09/18/17 21:00 Physical Exam Vital Signs Vital Signs Date Time Temp Pulse Resp B/P (MAP) Pulse Ox O2 Delivery O2 Flow Rate FiO2 09/18/17 11:45 98.4 85 20 122/71 (88) 91 09/16/17 20:01 Nasal Cannula 2.00 I/O 09/18/17 09/18/17 09/19/17 08:00 16:00 00:00 Intake Total 100 ml Balance 100 ml Lab Results Test 09/18/17 06:00 White Blood Count 11.5 TH/MM3 Red Blood Count 3.88 MIL/MM3 Hemoglobin 11.5 GM/DL Hematocrit 34.8 % Mean Corpuscular Volume 89.6 FL Mean Corpuscular Hemoglobin 29.6 PG Mean Corpuscular Hemoglobin Concent 33.1 % Red Cell Distribution Width 15.8 % Platelet Count 375 TH/MM3 Mean Platelet Volume 6.7 FL Neutrophils (%) (Auto) 78.9 % Lymphocytes (%) (Auto) 10.8 % Monocytes (%) (Auto) 9.8 % Eosinophils (%) (Auto) 0.2 % Basophils (%) (Auto) 0.3 % Neutrophils # (Auto) 9.1 TH/MM3 Lymphocytes # (Auto) 1.2 TH/MM3 Monocytes # (Auto) 1.1 TH/MM3 Eosinophils # (Auto) 0.0 TH/MM3 Basophils # (Auto) 0.0 TH/MM3 CBC Comment DIFF FINAL Differential Comment Blood Urea Nitrogen 36 MG/DL Creatinine 0.74 MG/DL Random Glucose 161 MG/DL Total Protein 7.2 GM/DL Albumin 2.6 GM/DL Calcium Level 9.2 MG/DL Alkaline Phosphatase 126 U/L Aspartate Amino Transf (AST/SGOT) 21 U/L Alanine Aminotransferase (ALT/SGPT) 19 U/L Total Bilirubin 0.4 MG/DL Sodium Level 140 MEQ/L Potassium Level 3.9 MEQ/L Chloride Level 105 MEQ/L Carbon Dioxide Level 24.3 MEQ/L Anion Gap 11 MEQ/L Estimat Glomerular Filtration Rate 106 ML/MIN Date/Time Source Procedure Growth Status 09/16/17 15:42 Blood Peripheral Aerobic Blood Culture - Preliminary NO GROWTH IN 2 DAYS Resulted 12/26/17 15:42 Blood Peripheral Anaerobic Blood Culture - Preliminary NO GROWTH IN 2 DAYS Resulted 09/16/17 16:05 Nasal Washing Influenza Types A,B Antigen (GERALD) - Final NEGATIVE FOR FLU A AND B ANTIGEN.... Complete 09/16/17 22:50 Urine Clean Catch Urine Culture - Final Klebsiella Pneumoniae Complete Mental Status Examination Appearance: Dirty, Disheveled Consciousness: Obtunded Orientation: Person Motor Activity: Abnormal gait Speech: Hesitant, Slow Language: Echolalia Fund of Knowledge: Inadequate Memory: Impaired Affect: Flat Thought Process & Associations: Disorganized Thought Content: Thought blocking Hallucination Type: None Delusion Type: None Suicidal Ideation: No Suicidal Plan: No Suicidal Intention: No Homicidal Ideation: No Homicidal Plan: No Homicidal Intention: No Insight: Fair Judgment: Impulsive Assessment & Plan Problem List: (1) 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 Patient at baseline is kind of disorganized and chronically delusional. Will increase Haldol to 10 mg twice a day, continue Geodon 40 mg twice a day, add Ativan 1 mg by mouth 3 times a day. If current presentation persist beyond medical clearance patient might benefit of psychiatric hospitalization. We'll follow-up. Assessment & Plan Estimated LOS: Kyler Lozoya MD Sep 18, 2017 14:03
--- NOTE | 2017-09-18 21:14 | RADRPT ---
EXAM DATE/TIME: 09/18/2017 21:09 [facility] COMPARISON: CHEST SINGLE AP, September 16, 2017, 15:15. INDICATIONS : Short of breath. MEDICAL HISTORY : Chronic obstructive pulmonary disease. Cardiovascular disease. Hypertension. Dementia, diabetes. SURGICAL HISTORY : None. ENCOUNTER: Initial ACUITY: 1 day PAIN SCORE: 0/10 LOCATION: Bilateral chest FINDINGS: There is mild hazy parenchymal opacity on the left which may be developing infiltrate. No evidence of effusion. Cardiac contour is satisfactory. Posttraumatic deformity of the right shoulder again noted . CONCLUSION: Mild hazy infiltrate in the left lower lung Ravi Villarreal MD on September 18, 2017 at 21:11 Board Certified Radiologist. This report was verified electronically.
[2017-09-18] MEDS: metroNIDAZOLE 500 MG INJ 100 ML IV SCH (21:53)
[2017-09-18] MEDS: RESP: ALBUTEROL 2.5 MG/IPRATROPIUM 0.5 MG NEB (SCH) NEB (22:00)
[2017-09-18] MEDS: AZITHROMYCIN INJ 500 MG in SODIUM CHLOR 0.9% 250 ML INJ 250 ML IV SCH (23:16)
[2017-09-19] VITALS (14 sets, daily range): BP systolic 105–131; BP diastolic 62–79; PULSE 75–94; RESP 20–35; TEMP 98.3–99; O2SAT 92–97
[2017-09-19] MEDS: RESP: ALBUTEROL 2.5 MG/IPRATROPIUM 0.5 MG NEB (SCH) NEB ×4 (03:30→20:12)
[2017-09-19] MEDS: metroNIDAZOLE 500 MG INJ 100 ML IV SCH ×3 (05:18→20:47)
[2017-09-19] MEDS: LORazepam 1 MG TAB PO SCH ×3 (05:18→18:30)
[2017-09-19] MEDS: INSULIN ASPART SUPPLEMENTAL SCALE SQ SCH ×4 (08:00→20:47)
[2017-09-19] MEDS: BUDESONIDE-FORMOTEROL 160/4.5 MCG INHALER INH SCH ×2 (08:22→20:36)
[2017-09-19] MEDS: DILTIAZEM HCL 30 MG TAB PO SCH ×4 (08:22→20:36)
[2017-09-19] MEDS: LACTOBACILLUS ACIDOPHILUS TAB PO SCH ×3 (08:23→18:00)
[2017-09-19] MEDS: cefTRIAXone INJ 1,000 MG in SODIUM CHLORIDE 0.9% INJ 100 ML IV SCH (08:23)
[2017-09-19] MEDS: PANTOPRAZOLE SOD 40 MG DELAYED RELEASE TAB PO SCH ×2 (08:23→20:36)
--- NOTE | 2017-09-19 08:29 | HHI.PR ---
Subjective Remarks Pt seems to be more alert this morning. Answers some of my questions although when asked if he has pain, he answers "yes" but then doesn't states where or how much pain. I cannot understand if he answers yes or no when asked if he is hungry but denies any nausea or vomiting. Pt still requiring 9L currently on NC as he will not leave the non rebreather in. On restraints at this time but RN removed them while I was in the room and pt cooperating. Discussed w RN, no concerns at this time. Objective Vitals Vital Signs Date Time Temp Pulse Resp B/P (MAP) Pulse Ox O2 Delivery O2 Flow Rate FiO2 09/19/17 07:41 94 Partial Rebreather 12.00 09/19/17 06:00 90 09/19/17 04:00 81 09/19/17 04:00 98.9 81 25 118/62 (80) 93 09/19/17 02:00 75 09/19/17 00:00 99.0 92 20 105/67 (80) 97 09/19/17 00:00 80 09/18/17 23:29 96 Partial Rebreather 10.00 09/18/17 22:57 99.2 92 24 116/67 (83) 88 09/18/17 21:08 91 Venturi Mask 6.00 50 09/18/17 20:32 90 Nasal Cannula 3.00 09/18/17 20:11 98.1 82 16 111/52 (71) 90 09/18/17 15:50 97.6 79 20 122/64 (83) 93 09/18/17 11:45 98.4 85 20 122/71 (88) 91 I/O 09/18/17 09/18/17 09/18/17 09/19/17 09/19/17 09/19/17 07:00 15:00 23:00 07:00 15:00 23:00 Intake Total 100 ml 400 ml Output Total 0 ml Balance 100 ml 400 ml Intake Oral 50 ml IV Total 100 ml 350 ml Output Urine Total 0 ml # Voids 2 1 # Bowel Movements 0 0 Result Diagram: 09/18/17 0600 09/18/17 0600 Imaging Last Impressions Chest X-Ray 09/18/17 0000 Signed Impressions: Service Date/Time: August 21:09 - CONCLUSION: Mild hazy infiltrate in the left lower lung Ravi Villarreal MD Head CT 09/16/17 0000 Signed Impressions: Service Date/Time: Saturday, September 16, 2017 17:48 - CONCLUSION: No acute intracranial abnormality. Pansinusitis. Ravi Head MD Brain MRI 09/16/17 0000 Signed Impressions: Service Date/Time: Saturday, September 16, 2017 21:45 - CONCLUSION: Chronic white matter changes. No acute intracranial abnormality demonstrated. Ravi Head MD Abdomen/Pelvis CT 09/16/17 0000 Signed Impressions: Service Date/Time: Saturday, September 16, 2017 21:58 - CONCLUSION: 1. No acute abnormality. 2. Large bladder wall mass again demonstrated, measures larger than before. 3. Evidence of chronic pancreatitis. No acute inflammatory changes are seen. 4. Previous cholecystectomy. Ravi Head MD Objective Remarks GENERAL: appears comfortable but does seems somewhat somnolent. Slow speech NECK: trachea midline. EYES: EOMI CARDIOVASCULAR: Regular rate and rhythm without murmurs RESPIRATORY: Breath sounds equal bilaterally however diminished, poor efforts noted. no wheezing GASTROINTESTINAL: Abdomen soft, non-tender, nondistended. MUSCULOSKELETAL: No edema. he does move his legs upon commands but is weak, restraints in upper extremities in place but removed later by RN A/P Assessment and Plan 67-year-old male admitted secondary to metabolic encephalopathy related to urinary tract infection. 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 Psychiatry consult placed. Continue to monitor cultures. Metabolic encephalopathy related to urinary tract infection Altered mental status Continue supportive care Treat urinary tract infection No acute abnormalities on brain imaging Urinary tract infection Growing Klebsiella pansensitive. 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 Appreciate assistance. Pt seems to be cooperating more today Diabetes mellitus type 2 Follow blood sugars Insulin sliding scale Diabetic diet COPD Continue duo nebs DVT prophylaxis Continue SCDs. will start him on lovenox Discharge Planning continue care in ICU as oxygen requirement still up. wean oxygen as tolerated. transfer to regular floor once oxygen requirement improved. PT consult. added IS /Daya Gold MD Sep 19, 2017 08:29
[2017-09-19] MEDS: ZIPRASIDONE HCL 40 MG CAP PO SCH ×2 (08:35→20:47)
[2017-09-19] MEDS: HALOPERIDOL LACTATE ORAL CONC 10 MG/5 ML CUP PO SCH ×2 (08:35→20:36)
[2017-09-19] MEDS: ENOXAPARIN SODIUM 40 MG/0.4 ML SYRINGE SQ SCH (09:00)
--- NOTE | 2017-09-19 12:09 | HHI.PYPN ---
Subjective Remarks Patient was seen today for psychiatric reevaluation. Chart reviewed. Case discussed with nurse in charge. On psychiatric evaluation patient is found calm , cooperative, but disorganized and disoriented. He reports feeling good, denies pain, denies distress. He says that he feels much better today. There is no visible stiffness, there is no echophenomena, mannerisms, oppositional behavior or refractory is patient noted at this moment. Patient reports good mood, denies depressive symptoms, he denies suicidal and homicidal ideation, he denies visual and auditory hallucinations. Patient is partially oriented, he knows that he is at [facility], but he is disoriented in time. No agitation, no aggressive behavior reported or noted. Patient has been compliant with his medications, no significant side effects so far. Mental Status Examination Appearance: Dirty, Disheveled Consciousness: Obtunded Orientation: Person, Place Motor Activity: Abnormal gait Speech: Hesitant, Slow Language: Echolalia Fund of Knowledge: Inadequate Memory: Impaired Mood: Appropriate Affect: Appropriate Thought Process & Associations: Loose associations, Disorganized Thought Content: Bizarre thinking Hallucination Type: None Delusion Type: None Suicidal Ideation: No Suicidal Plan: No Suicidal Intention: No Homicidal Ideation: No Homicidal Plan: No Homicidal Intention: No Insight: Fair Judgment: Impulsive Results Labs Test 09/18/17 20:45 09/18/17 22:53 09/19/17 00:18 Blood Gas Puncture Site RT RADIAL RT RADIAL Blood Gas Patient Temperature 98.6 Blood Gas HCO3 24 mmol/L 24 mmol/L Blood Gas Base Excess 0.5 mmol/L -1.0 mmol/L Blood Gas Oxygen Saturation 84 % 96 % Arterial Blood pH 7.43 7.37 Arterial Blood Partial Pressure CO2 38 mmHg 42 mmHg Arterial Blood Partial Pressure O2 50 mmHG 96 mmHG Arterial Blood Oxygen Content 13.7 Vol % 14.6 Vol % Arterial Blood Carboxyhemoglobin 1.5 % 1.3 % Arterial Blood Methemoglobin 0.6 % 0.4 % Blood Gas Hemoglobin 11.6 G/DL 10.8 G/DL Oxygen Delivery Device NASAL CANNULA Partial Rebreather Blood Gas Liter Flow 4 L/M 10 L/M Nasal Screen MRSA (PCR) MRSA NOT DETECTED Date/Time Source Procedure Growth Status 09/16/17 15:42 Blood Peripheral Aerobic Blood Culture - Preliminary NO GROWTH IN 3 DAYS Resulted 09/16/17 15:42 Blood Peripheral Anaerobic Blood Culture - Preliminary NO GROWTH IN 3 DAYS Resulted 09/16/17 16:05 Nasal Washing Influenza Types A,B Antigen (GERALD) - Final NEGATIVE FOR FLU A AND B ANTIGEN.... 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 Disorientation and disorganized speech and thought processes are part of chronic schizophrenia/dementia. Continue current psychotropic regimen. Psychoeducation and supportive psychotherapy provided. Assessment & Plan Estimated LOS: days Justification for Cont. Inpt. No need for psychiatric admission. Kyler Mcelroy MD Sep 19, 2017 12:09
[2017-09-19] MEDS: AZITHROMYCIN INJ 500 MG in SODIUM CHLOR 0.9% 250 ML INJ 250 ML IV SCH (21:51)
[2017-09-20] VITALS (15 sets, daily range): BP systolic 109–125; BP diastolic 59–73; PULSE 66–96; RESP 16–25; TEMP 97.7–98.9; O2SAT 92–100
[2017-09-20] MEDS: RESP: ALBUTEROL 2.5 MG/IPRATROPIUM 0.5 MG NEB (SCH) NEB ×4 (04:43→21:37)
[2017-09-20 05:32] LABS: AUTOMATED NEUTROPHIL # 5.8 TH/MM3 (1.8-7.7); BASOPHIL % 0.4 % (0.0-2.0); EOSINOPHIL # 0.2 TH/MM3 (0-0.4); EOSINOPHIL % 1.9 % (0.0-4.0); HEMATOCRIT 32.8 % (39.0-51.0); LYMPH % 17.5 % (9.0-44.0); LYMPHOCYTE # 1.4 TH/MM3 (1.0-4.8); MEAN CELL VOLUME 89.2 FL (80.0-100.0); MEAN CORPUSCULAR HEMOGLOBIN 29.8 PG (27.0-34.0); MEAN CORPUSCULAR HGB CONC 33.4 % (32.0-36.0); MEAN PLATELET VOLUME 6.7 FL (7.0-11.0); MONO % 8.5 % (0.0-8.0); MONOCYTE # 0.7 TH/MM3 (0-0.9); NEUT % 71.7 % (16.0-70.0); PLATELET COUNT 333 TH/MM3 (150-450); RED BLOOD COUNT 3.67 MIL/MM3 (4.50-5.90); RED CELL DISTRIBUTION WIDTH 15.5 % (11.6-17.2); WHITE BLOOD COUNT 8.1 TH/MM3 (4.0-11.0)
[2017-09-20] MEDS: LORazepam 1 MG TAB PO SCH ×3 (05:37→21:01)
[2017-09-20] MEDS: metroNIDAZOLE 500 MG INJ 100 ML IV SCH ×3 (05:38→21:01)
[2017-09-20 05:57] LABS: BICARBONATE 28.6 MEQ/L (21.0-32.0); CALCIUM 9.4 MG/DL (8.5-10.1); CREATININE 0.52 MG/DL (0.60-1.30)
--- NOTE | 2017-09-20 08:05 | PQ ---
Physician Query Response Document PATIENT: NAY DIMAS : 1950 ADMIT DATE: 09/18/2017 9:40 PM [facility] DATE: RESPONDING PROVIDER #: rleger QUERY TEXT: Clarification of Clinical Diagnostic Findings Please clarify DIAGNOSIS or clinical relevance for the documentation: Pt still requiring 9L currently on NC as he will not leave the non rebreather in such as: -- ACUTE RESPIRATORY FAILURE -- ACUTE RESPIRATORY DISTRESS -- COPD EXACERBATION -- OTHER, PLEASE EXPLAIN PLEASE CALL CD[facility] @ [phone] FOR ASSISTANCE The patient's Clinical Indicators include: PER PROGRESS NOTE: Pt still requiring 9L currently on NC as he will not leave the non rebreather in COPD Continue duo nebs Discharge Planning continue care in ICU as oxygen requirement still up. wean oxygen as tolerated. transfer to regular fl oor once oxygen requirement improved. PT consult. added IS/acapella Query created by: Adri Crouch on 09/19/2017 12:15 PM RESPONSE TEXT: Acute respiratory failure secondary to PNA. On IV abx. improving. Electronically signed by: Daya Loazno MD 09/20/2017 8:01 AM
--- NOTE | 2017-09-20 08:11 | HHI.PR ---
Subjective Remarks Pt denies any nausea or vomiting, no SOB or cough. Pt does say yes when I ask if he has any abdominal pain but the when I palpate he said "it should have been there" and has no pain. discussed w RN, pt on 4L IN. Objective Vitals Vital Signs Date Time Temp Pulse Resp B/P (MAP) Pulse Ox O2 Delivery O2 Flow Rate FiO2 09/20/17 06:00 82 09/20/17 05:42 98.5 88 19 125/59 (81) 92 09/20/17 04:00 87 09/20/17 02:00 66 09/20/17 00:00 75 09/20/17 00:00 98.9 75 19 109/60 (76) 93 09/19/17 22:00 76 09/19/17 20:12 94 Nasal Cannula 3.00 09/19/17 20:00 98.6 85 35 131/79 (96) 95 09/19/17 20:00 86 09/19/17 18:00 85 25 123/63 (83) 93 09/19/17 18:00 85 09/19/17 16:00 76 09/19/17 16:00 98.3 76 21 117/67 (84) 96 09/19/17 14:00 122/66 (84) 09/19/17 14:00 92 09/19/17 12:00 98.5 84 25 111/71 (84) 94 09/19/17 12:00 92 09/19/17 10:00 114/67 (83) 09/19/17 10:00 92 I/O 09/19/17 09/19/17 09/19/17 09/20/17 09/20/17 09/20/17 07:00 15:00 23:00 07:00 15:00 23:00 Intake Total 400 ml 1050 ml 400 ml Output Total 0 ml 600 ml 500 ml Balance 400 ml 450 ml -100 ml Intake Oral 50 ml 500 ml 300 ml IV Total 350 ml 550 ml 100 ml Output Urine Total 0 ml 600 ml 500 ml # Bowel Movements 0 0 0 Result Diagram: 09/20/17 0425 09/20/17 0425 Imaging Last Impressions Chest X-Ray 09/18/17 0000 Signed Impressions: Service Date/Time: August 21:09 - CONCLUSION: Mild hazy infiltrate in the left lower lung Ravi Villarreal MD Head CT 09/16/17 0000 Signed Impressions: Service Date/Time: Saturday, September 16, 2017 17:48 - CONCLUSION: No acute intracranial abnormality. Pansinusitis. Ravi Head MD Brain MRI 09/16/17 0000 Signed Impressions: Service Date/Time: Saturday, September 16, 2017 21:45 - CONCLUSION: Chronic white matter changes. No acute intracranial abnormality demonstrated. Ravi Head MD Abdomen/Pelvis CT 09/16/17 0000 Signed Impressions: Service Date/Time: Saturday, September 16, 2017 21:58 - CONCLUSION: 1. No acute abnormality. 2. Large bladder wall mass again demonstrated, measures larger than before. 3. Evidence of chronic pancreatitis. No acute inflammatory changes are seen. 4. Previous cholecystectomy. Ravi Head MD Objective Remarks GENERAL: appears comfortable Slow speech confused NECK: trachea midline. EYES: EOMI CARDIOVASCULAR: Regular rate and rhythm without murmurs RESPIRATORY: Breath sounds equal bilaterally however diminished, poor efforts noted. no wheezing GASTROINTESTINAL: Abdomen soft, non-tender, nondistended. MUSCULOSKELETAL: No edema. he does move his legs upon commands but is weak A/P Assessment and Plan 67-year-old male admitted secondary to metabolic encephalopathy related to urinary tract infection. 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 Psychiatry consult placed. Continue to monitor cultures. Metabolic encephalopathy related to urinary tract infection Altered mental status Continue supportive care Treat urinary tract infection/ Klebsiella No acute abnormalities on brain imaging Acute respiratory failure found to have mild hazy infiltrate on the left lower lung. on azithro and rocephin at this time. now on NC at 4L and continue to wean him Urinary tract infection Growing Klebsiella pansensitive. 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 Appreciate assistance. Pt seems to be getting back to baseline. Diabetes mellitus type 2 Follow blood sugars Insulin sliding scale Diabetic diet COPD Continue duo nebs DVT prophylaxis Continue SCDs. lovenox Discharge Planning continue to wean oxygen as tolerated. transfer to regular floor later today. PT consult. encourage IS/acapella use Daya Lzoano MD Sep 20, 2017 08:11
[2017-09-20] MEDS ORDERED: LORazepam 2 MG/ML VIAL ONE (09:28)
[2017-09-20] MEDS: BUDESONIDE-FORMOTEROL 160/4.5 MCG INHALER INH SCH ×2 (10:34→21:02)
[2017-09-20] MEDS: cefTRIAXone INJ 1,000 MG in SODIUM CHLORIDE 0.9% INJ 100 ML IV SCH (10:35)
[2017-09-20] MEDS: DILTIAZEM HCL 30 MG TAB PO SCH ×4 (10:36→21:01)
[2017-09-20] MEDS: HALOPERIDOL LACTATE ORAL CONC 10 MG/5 ML CUP PO SCH ×2 (10:36→21:01)
[2017-09-20] MEDS: ENOXAPARIN SODIUM 40 MG/0.4 ML SYRINGE SQ SCH (10:36)
[2017-09-20] MEDS: PANTOPRAZOLE SOD 40 MG DELAYED RELEASE TAB PO SCH ×2 (10:36→21:01)
[2017-09-20] MEDS: LACTOBACILLUS ACIDOPHILUS TAB PO SCH ×3 (10:36→17:17)
[2017-09-20] MEDS: ZIPRASIDONE HCL 40 MG CAP PO SCH ×2 (10:36→21:01)
[2017-09-20] MEDS: INSULIN ASPART SUPPLEMENTAL SCALE SQ SCH ×4 (10:52→21:00)
[2017-09-20] MEDS ORDERED: SODIUM CHLORID 0.9% 500 ML INJ 500 ML IV SCH (16:15)
[2017-09-20] MEDS: AZITHROMYCIN INJ 500 MG in SODIUM CHLOR 0.9% 250 ML INJ 250 ML IV SCH (21:01)
[2017-09-21] VITALS (8 sets, daily range): BP systolic 105–132; BP diastolic 59–73; PULSE 72–90; RESP 18–21; TEMP 97.3–98.7; O2SAT 91–97
[2017-09-21] MEDS: metroNIDAZOLE 500 MG INJ 100 ML IV SCH ×2 (05:19→13:21)
[2017-09-21] MEDS: LORazepam 1 MG TAB PO SCH ×3 (05:21→21:40)
[2017-09-21] MEDS: RESP: ALBUTEROL 2.5 MG/IPRATROPIUM 0.5 MG NEB (SCH) NEB ×4 (05:42→20:58)
[2017-09-21] MEDS: INSULIN ASPART SUPPLEMENTAL SCALE SQ SCH ×5 (08:00→21:00)
[2017-09-21] MEDS: BUDESONIDE-FORMOTEROL 160/4.5 MCG INHALER INH SCH ×2 (11:02→21:41)
[2017-09-21] MEDS: cefTRIAXone INJ 1,000 MG in SODIUM CHLORIDE 0.9% INJ 100 ML IV SCH (11:03)
[2017-09-21] MEDS: PANTOPRAZOLE SOD 40 MG DELAYED RELEASE TAB PO SCH ×2 (11:04→21:40)
[2017-09-21] MEDS: LACTOBACILLUS ACIDOPHILUS TAB PO SCH ×3 (11:04→17:48)
[2017-09-21] MEDS: ZIPRASIDONE HCL 40 MG CAP PO SCH ×2 (11:04→21:40)
[2017-09-21] MEDS: DILTIAZEM HCL 30 MG TAB PO SCH ×4 (11:04→21:40)
[2017-09-21] MEDS: HALOPERIDOL LACTATE ORAL CONC 10 MG/5 ML CUP PO SCH ×2 (11:04→21:40)
[2017-09-21] MEDS: ENOXAPARIN SODIUM 40 MG/0.4 ML SYRINGE SQ SCH (11:05)
--- NOTE | 2017-09-21 15:00 | HHI.PR ---
Subjective Remarks Patient with difficulty communicating secondary to tangential speech, however denies pain. Objective Vital Signs Date Time Temp Pulse Resp B/P (MAP) Pulse Ox O2 Delivery O2 Flow Rate FiO2 09/21/17 12:02 97.8 90 21 105/59 (74) 94 09/21/17 08:29 91 Nasal Cannula 3.00 09/21/17 08:02 97.8 88 21 118/65 (82) 95 09/21/17 04:00 97.3 72 18 111/71 (84) 97 09/21/17 00:25 98.7 77 18 111/62 (78) 95 09/20/17 21:51 100 Nasal Cannula 3.00 09/20/17 21:39 92 21 09/20/17 20:00 97.7 90 16 120/70 (87) 94 09/20/17 20:00 90 09/20/17 18:00 87 09/20/17 16:00 86 09/20/17 16:00 97.8 86 19 109/60 (76) 95 I/O 09/20/17 09/20/17 09/20/17 09/21/17 09/21/17 09/21/17 07:00 15:00 23:00 07:00 15:00 23:00 Intake Total 400 ml 100 ml Output Total 500 ml 750 ml 350 ml Balance -100 ml -750 ml -250 ml Intake Oral 300 ml 0 ml IV Total 100 ml 100 ml Output Urine Total 500 ml 750 ml 350 ml # Bowel Movements 0 0 Result Diagram: 09/20/17 0425 09/20/17 0425 Objective Remarks GENERAL: Patient lying in bed. Appears comfortable. Tangential speech. SKIN: Warm and dry. HEAD: Normocephalic. EYES: No scleral icterus. No injection or drainage. NECK: Supple, trachea midline. No JVD. CARDIOVASCULAR: Regular rate and rhythm without murmurs, gallops, or rubs. RESPIRATORY: Breath sounds equal bilaterally. No accessory muscle use. GASTROINTESTINAL: Abdomen soft, non-tender, nondistended. MUSCULOSKELETAL: No cyanosis, or edema. BACK: Nontender without obvious deformity. No CVA tenderness. A/P Assessment and Plan 67-year-old male admitted secondary to metabolic encephalopathy related to urinary tract infection. 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 Psychiatry consult placed. Continue to monitor cultures. //Metabolic encephalopathy related to urinary tract infection Altered mental status Continue supportive care Treat urinary tract infection/ Klebsiella No acute abnormalities on brain imaging = Appears resolved. //Acute respiratory failure found to have mild hazy infiltrate on the left lower lung. on azithro and rocephin at this time. now on NC at 4L and continue to wean him = Appears to be off oxygen this afternoon. //Urinary tract infection Growing Klebsiella pansensitive. Continue Rocephin //Urothelial cancer Likely contributory to UTI -CT with bladder mass. 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 Appreciate assistance. Pt seems to be getting back to baseline. = History back to baseline. //Diabetes mellitus type 2 Follow blood sugars Insulin sliding scale Diabetic diet = 09/21. Blood sugars elevated. We will add Levemir in addition to sliding scale. Patient will likely need insulin to continue at facility. Check A1c. //COPD Continue duo nebs //DVT prophylaxis Continue SCDs. lovenox Discharge Planning octaviano discharged to facility tomorrow. Ulysses Franco MD Sep 21, 2017 15:00
[2017-09-21] MEDS ORDERED: NOVOLOGSS SQ (15:04)
[2017-09-21] MEDS ORDERED: Albuterol-Ipratropium Neb NEB (15:04)
[2017-09-21] MEDS ORDERED: LEVEMIR SQ (15:04)
[2017-09-21] MEDS ORDERED: LORA-474 PO (15:04)
[2017-09-21] MEDS ORDERED: AUGM875T3 PO (15:04)
[2017-09-21] MEDS ORDERED: AMPICILLIN-SULBACTAM INJ 1,500 MG VIAL IM SCH (16:00)
--- NOTE | 2017-09-21 19:31 | EKG ---
Date Performed: 09/21/2017 Time Performed: 15:40:22 PTAGE: 67 years EKG: Sinus rhythm NORMAL ECG Compared to prior electrocardiogram, probable Normal sinus rhythm has replaced atrial fi brillation PREVIOUS TRACING : 07/06/2017 09.46 DOCTOR: Raphael Art Interpretating Date/Time 09/21/2017 19:30:10
[2017-09-21] MEDS: INSULIN DETEMIR 100 UNITS/ML VIAL SQ SCH (21:00)
[2017-09-21] MEDS: AMOXICILLIN/CLAVULANATE K 875 MG TAB PO SCH (22:10)
[2017-09-22] VITALS (8 sets, daily range): BP systolic 118–150; BP diastolic 62–78; PULSE 76–110; RESP 18–24; TEMP 97.1–98.9; O2SAT 88–97
[2017-09-22] MEDS: RESP: ALBUTEROL 2.5 MG/IPRATROPIUM 0.5 MG NEB (SCH) NEB ×5 (03:09→22:45)
[2017-09-22] MEDS: LORazepam 1 MG TAB PO SCH ×3 (05:50→22:00)
[2017-09-22] MEDS: INSULIN ASPART SUPPLEMENTAL SCALE SQ SCH ×4 (07:58→22:43)
[2017-09-22] MEDS: AMOXICILLIN/CLAVULANATE K 875 MG TAB PO SCH ×2 (08:02→22:33)
[2017-09-22] MEDS: DILTIAZEM HCL 30 MG TAB PO SCH ×4 (08:02→22:33)
[2017-09-22] MEDS: ZIPRASIDONE HCL 40 MG CAP PO SCH ×2 (08:03→21:00)
[2017-09-22] MEDS: LACTOBACILLUS ACIDOPHILUS TAB PO SCH ×3 (08:03→18:00)
[2017-09-22] MEDS: PANTOPRAZOLE SOD 40 MG DELAYED RELEASE TAB PO SCH ×2 (08:03→22:34)
[2017-09-22] MEDS: HALOPERIDOL LACTATE ORAL CONC 10 MG/5 ML CUP PO SCH ×2 (08:03→21:00)
[2017-09-22] MEDS: INSULIN DETEMIR 100 UNITS/ML VIAL SQ SCH ×2 (08:03→22:43)
[2017-09-22] MEDS: ENOXAPARIN SODIUM 40 MG/0.4 ML SYRINGE SQ SCH (08:04)
[2017-09-22] MEDS: BUDESONIDE-FORMOTEROL 160/4.5 MCG INHALER INH SCH ×2 (09:59→22:44)
--- NOTE | 2017-09-22 10:59 | HHI.PR ---
Subjective Remarks No acute events per nursing. Still with tangential speech. Patient denies any chest pain or shortness of breath. Objective Vital Signs Date Time Temp Pulse Resp B/P (MAP) Pulse Ox O2 Delivery O2 Flow Rate FiO2 09/22/17 09:57 92 Nasal Cannula 3.00 09/22/17 08:15 Nasal Cannula 2.00 09/22/17 08:00 97.6 99 18 122/78 (93) 88 09/22/17 04:00 Nasal Cannula 2.00 09/22/17 04:00 98.0 95 24 140/65 (90) 92 09/22/17 00:00 Nasal Cannula 2.00 09/22/17 00:00 97.1 76 20 123/62 (82) 97 09/21/17 21:02 92 Nasal Cannula 3.00 09/21/17 20:00 97.6 84 20 132/73 (92) 92 09/21/17 20:00 Nasal Cannula 2.00 09/21/17 17:59 Nasal Cannula 2.00 09/21/17 16:02 98.1 90 21 117/69 (85) 93 09/21/17 12:02 97.8 90 21 105/59 (74) 94 I/O 09/21/17 09/21/17 09/21/17 09/22/17 09/22/17 09/22/17 07:00 15:00 23:00 07:00 15:00 23:00 Intake Total 100 ml 440 ml 120 ml Output Total 350 ml 100 ml 350 ml Balance -250 ml 340 ml -230 ml Intake Oral 0 ml 440 ml 120 ml IV Total 100 ml Output Urine Total 350 ml 100 ml 350 ml # Voids 1 # Bowel Movements 0 0 Result Diagram: 09/20/1742409/20/17424 Objective Remarks GENERAL: Patient lying in bed. Appears comfortable. Tangential speech. Exam unchanged from yesterday. SKIN: Warm and dry. HEAD: Normocephalic. EYES: No scleral icterus. No injection or drainage. NECK: Supple, trachea midline. No JVD. CARDIOVASCULAR: Regular rate and rhythm without murmurs, gallops, or rubs. RESPIRATORY: Breath sounds equal bilaterally. No accessory muscle use. GASTROINTESTINAL: Abdomen soft, non-tender, nondistended. MUSCULOSKELETAL: No cyanosis, or edema. BACK: Nontender without obvious deformity. No CVA tenderness. A/P Assessment and Plan 67-year-old male admitted secondary to metabolic encephalopathy related to urinary tract infection. 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 Psychiatry consult placed. Continue to monitor cultures. //Metabolic encephalopathy related to urinary tract infection Altered mental status Continue supportive care Treat urinary tract infection/ Klebsiella No acute abnormalities on brain imaging = Appears resolved to baseline. //Acute respiratory failure found to have mild hazy infiltrate on the left lower lung. Continues on Augmentin to complete treatment course. now on NC at 4L and continue to wean him = Requiring 2 L, as he has 80% on room air. //Urinary tract infection Growing Klebsiella pansensitive. Continue Augmentin to complete course //Urothelial cancer Likely contributory to UTI -CT with bladder mass. 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 Appreciate assistance. Pt seems to be getting back to baseline. = History back to baseline. //Diabetes mellitus type 2 Follow blood sugars Insulin sliding scale Diabetic diet = 09/22. Blood sugars elevated. We will add Levemir in addition to sliding scale. Patient will likely need insulin to continue at facility. Check A1c.Still pending continue Levemir, insulin sliding scale //COPD Continue duo nebs //DVT prophylaxis Continue SCDs. lovenox Discharge Planning Discharge to [facility] today Ulysses Franco MD Sep 22, 2017 10:59
--- NOTE | 2017-09-22 11:02 | HHI.DS ---
Discharge Summary Admission Date Sep 18, 2017 at 21:40 Discharge Date: Sep 22, 2017 Admitting Diagnosis altered mental status, schizophrenia (1) Bladder mass ICD Code: N32.89 - Other specified disorders of bladder Status: Acute (2) Altered mental status ICD Code: R41.82 - Altered mental status, unspecified Status: Acute (3) Urinary tract infection ICD Code: N39.0 - Urinary tract infection, site not specified (4) COPD (chronic obstructive pulmonary disease) ICD Code: J44.9 - Chronic obstructive pulmonary disease Status: Chronic Procedures No invasive procedures. Brief History - From Admission 67-year-old male with a past medical history significant for paranoid schizophrenia with behavioral disturbances, recently diagnosed urothelial cancer , dementia, type 2 diabetes mellitus, COPD, A. fib on ASA, hyperlipidemia and hypertension was brought to the emergency department via back for evaluation of cold-like symptoms. The patient will track with his eyes to voice however does not follow commands and does not answer questions. No significant lab abnormalities, patient with hyperkalemia of 5.5. CBC/BMP: 09/20/17 0425 09/20/17 0425 Significant Findings Laboratory Tests Test 09/20/17 04:25 09/21/17 21:10 Red Blood Count 3.67 MIL/MM3 (4.50-5.90) Hemoglobin 11.0 GM/DL (13.0-17.0) Hematocrit 32.8 % (39.0-51.0) Mean Platelet Volume 6.7 FL (7.0-11.0) Neutrophils (%) (Auto) 71.7 % (16.0-70.0) Monocytes (%) (Auto) 8.5 % (0.0-8.0) Blood Urea Nitrogen 30 MG/DL (7-18) Creatinine 0.52 MG/DL (0.60-1.30) Imaging Last Impressions Chest X-Ray 09/18/17 0000 Signed Impressions: Service Date/Time: August 21:09 - CONCLUSION: Mild hazy infiltrate in the left lower lung Ravi Villarreal MD Head CT 09/16/17 0000 Signed Impressions: Service Date/Time: Saturday, September 16, 2017 17:48 - CONCLUSION: No acute intracranial abnormality. Pansinusitis. Ravi Head MD Brain MRI 09/16/17 0000 Signed Impressions: Service Date/Time: Saturday, September 16, 2017 21:45 - CONCLUSION: Chronic white matter changes. No acute intracranial abnormality demonstrated. Ravi Head MD Abdomen/Pelvis CT 09/16/17 0000 Signed Impressions: Service Date/Time: Saturday, September 16, 2017 21:58 - CONCLUSION: 1. No acute abnormality. 2. Large bladder wall mass again demonstrated, measures larger than before. 3. Evidence of chronic pancreatitis. No acute inflammatory changes are seen. 4. Previous cholecystectomy. Ravi Head MD PE at Discharge GENERAL: appears comfortable Slow speech confused NECK: trachea midline. EYES: EOMI CARDIOVASCULAR: Regular rate and rhythm without murmurs RESPIRATORY: Breath sounds equal bilaterally however diminished, poor efforts noted. no wheezing GASTROINTESTINAL: Abdomen soft, non-tender, nondistended. MUSCULOSKELETAL: No edema. he does move his legs upon commands but is weak Hospital Course 67-year-old male admitted secondary to metabolic encephalopathy related to urinary tract infection. 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 Psychiatry consult placed. Continue to monitor cultures. //Metabolic encephalopathy related to urinary tract infection Altered mental status Continue supportive care Treat urinary tract infection/ Klebsiella No acute abnormalities on brain imaging = Appears resolved to baseline. //Acute respiratory failure found to have mild hazy infiltrate on the left lower lung. Continues on Augmentin to complete treatment course. now on NC at 4L and continue to wean him = Requiring 2 L, as he has 80% on room air. //Urinary tract infection Growing Klebsiella pansensitive. Continue Augmentin to complete course //Urothelial cancer Likely contributory to UTI -CT with bladder mass. 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 Appreciate assistance. Pt seems to be getting back to baseline. = History back to baseline. //Diabetes mellitus type 2 Follow blood sugars Insulin sliding scale Diabetic diet = 09/22. Blood sugars elevated. We will add Levemir in addition to sliding scale. Patient will likely need insulin to continue at facility. Check A1c.Still pending continue Levemir, insulin sliding scale //COPD Continue duo nebs //DVT prophylaxis Continue SCDs. lovenox Discharge Planning Discharge to [facility] today Pt Condition on Discharge: Good Discharge Disposition: Discharge Home Discharge Time: > 30 minutes Discharge Instructions DIET: Follow Instructions for: Heart Healthy Diet Activities you can perform: Regular-No Restrictions Follow up Referrals: Urology - 1 Week New Medications: Amoxicillin-Clavulanate (Augmentin) 875-125 Mg Tab 1 TAB PO BID for Infection, #14 TAB 0 Refills Insulin Aspart Inj (Novolog Inj) 100 Unit/Ml Inj 1 INJECTION SQ ACHS SLIDING SCALE for Blood Sugar Management for 30 Days, INJECTION Insulin Detemir Inj (Levemir Inj) 1,000 unit/ 10 ML Vial 5 UNITS SQ Q12HR for Blood Sugar Management for 30 Days, INJECTION Do not mix with any other Insulin. Lorazepam (Ativan) 1 Mg Tab 1 MG PO Q8HR for Agitation, #12 TAB [Albuterol-Ipratropium Neb] () 1 AMPULE NEBU 1 AMPULE NEB Q4HR NEB PRN for SOB/WHEEZING for 30 Days Continued Medications: Aspirin (Aspirin) 325 Mg Tab 325 MG PO DAILY, #30 TAB 0 Refills Budesonide-Formoterol Inh (Symbicort Inh) 160-4.5 Mcg/Act Aero 1 PUFF INH Q12HR, #1 INHALER Diltiazem (Cardizem) 30 Mg Tab 30 MG PO QID, #120 TAB Haloperidol Inj (Haloperidol Inj) 5 Mg/Ml Inj 1 ML IM up to BID, PRN for Agitation for 30 Days, #1 BOTTLE 0 Refills Haloperidol Liq (Haloperidol Liq) 2 Mg/Ml Conc 12.5 MG PO BID, ML 0 Refills Pantoprazole (Pantoprazole) 40 Mg Tab 40 MG PO Q12HR, #60 TAB Ziprasidone (Geodon) 40 Mg Cap 40 MG PO BID, #30 CAP Discontinued Medications: Benztropine (Benztropine) 0.5 Mg Tab 2 MG PO DAILY, #30 TAB 0 Refills Haloperidol Liq (Haloperidol Liq) 2 Mg/Ml Conc 5 MG PO BID, #150 ML Metformin (Metformin) 1,000 Mg Tab 1000 MG PO DAILY for Blood Sugar Management, #30 TAB 0 Refills With a meal Methylprednisolone Dosepak (Medrol Dosepak) 4 Mg Dspk 4 MG PO DIRECTED, #1 DSPK 0 Refills Per Pharmacist direction Ziprasidone (Geodon) 60 Mg Cap 60 MG PO BID, #60 CAP 0 Refills Ulysses Franco MD Sep 22, 2017 11:02
[2017-09-22 12:42] LABS: HEMOGLOBIN A1C 8.9 % (4.3-6.0)
[2017-09-23] VITALS (8 sets, daily range): BP systolic 123–150; BP diastolic 60–85; PULSE 86–109; RESP 18–20; TEMP 97.8–98.9; O2SAT 91–95
[2017-09-23] MEDS: RESP: ALBUTEROL 2.5 MG/IPRATROPIUM 0.5 MG NEB (SCH) NEB ×4 (03:19→20:03)
[2017-09-23] MEDS: LORazepam 1 MG TAB PO SCH ×3 (05:10→21:25)
[2017-09-23] MEDS: INSULIN DETEMIR 100 UNITS/ML VIAL SQ SCH ×2 (10:48→21:25)
[2017-09-23] MEDS: INSULIN ASPART SUPPLEMENTAL SCALE SQ SCH ×4 (10:48→22:07)
[2017-09-23] MEDS: LACTOBACILLUS ACIDOPHILUS TAB PO SCH ×3 (10:49→18:45)
[2017-09-23] MEDS: PANTOPRAZOLE SOD 40 MG DELAYED RELEASE TAB PO SCH ×2 (10:49→21:25)
[2017-09-23] MEDS: DILTIAZEM HCL 30 MG TAB PO SCH ×4 (10:50→21:25)
[2017-09-23] MEDS: HALOPERIDOL LACTATE ORAL CONC 10 MG/5 ML CUP PO SCH ×2 (10:50→21:25)
[2017-09-23] MEDS: AMOXICILLIN/CLAVULANATE K 875 MG TAB PO SCH ×2 (10:50→21:25)
[2017-09-23] MEDS: ZIPRASIDONE HCL 40 MG CAP PO SCH ×2 (10:50→21:25)
[2017-09-23] MEDS: ENOXAPARIN SODIUM 40 MG/0.4 ML SYRINGE SQ SCH (10:56)
[2017-09-23] MEDS: BUDESONIDE-FORMOTEROL 160/4.5 MCG INHALER INH SCH ×2 (10:56→21:26)
--- NOTE | 2017-09-23 12:41 | HHI.PYPN ---
Subjective Remarks I have seen and examined this patient for psychiatric reevaluation. Chart reviewed. Patient was sleeping, easily arousable. He immediately recognized me from previous encounters, he reports good mood, he is partially oriented, continues to be tangential and disorganized at times as he is at baseline. However, no prominent paranoia, agitation or aggressive behavior noted or reported. He is compliant with his medications, no significant side effects. Review of Systems Except as stated in HPI: all other systems reviewed are Neg Mental Status Examination Appearance: Dirty, Disheveled Consciousness: Obtunded Orientation: Person, Place Motor Activity: Abnormal gait Speech: Hesitant, Slow Language: Echolalia Fund of Knowledge: Inadequate Memory: Impaired Mood: Appropriate Affect: Appropriate Thought Process & Associations: Loose associations, Disorganized Thought Content: Bizarre thinking Hallucination Type: None Delusion Type: None Suicidal Ideation: No Suicidal Plan: No Suicidal Intention: No Homicidal Ideation: No Homicidal Plan: No Homicidal Intention: No Insight: Fair Judgment: Impulsive Results Labs Date/Time Source Procedure Growth Status 09/16/17 15:42 Blood Peripheral Aerobic Blood Culture - Final NO GROWTH IN 5 DAYS Complete 09/16/17 15:42 Blood Peripheral Anaerobic Blood Culture - Final NO GROWTH IN 5 DAYS Complete 09/16/17 16:05 Nasal Washing Influenza Types A,B Antigen (GERALD) - Final NEGATIVE FOR FLU A AND B ANTIGEN.... 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 Continue current psychotropics. Assessment & Plan Estimated LOS: days Justification for Cont. Inpt. No psychiatric hospitalization indicated at this moment. Kyler Mcelroy MD Sep 23, 2017 12:41
--- NOTE | 2017-09-23 13:21 | HHI.PR ---
Subjective Remarks Follow-up metabolic encephalopathy/catatonic disorder 09/23/17-patient seen and examined, not talking much however denies any shortness of breath Objective Vitals Vital Signs Date Time Temp Pulse Resp B/P (MAP) Pulse Ox O2 Delivery O2 Flow Rate FiO2 09/23/17 08:00 97.8 86 20 123/66 (85) 93 09/23/17 04:00 98.4 97 18 143/85 (104) 93 09/23/17 04:00 Nasal Cannula 2.00 09/23/17 00:00 Room Air 09/23/17 00:00 98.9 95 18 130/74 (92) 92 09/22/17 22:00 Room Air 09/22/17 20:20 90 21 09/22/17 20:00 98.9 95 19 121/68 (85) 93 09/22/17 18:00 Nasal Cannula 2.00 09/22/17 16:00 98.0 104 18 150/65 (93) 90 09/22/17 14:11 Nasal Cannula 2.00 I/O 09/22/17 09/22/17 09/22/17 09/23/17 09/23/17 09/23/17 07:00 15:00 23:00 07:00 15:00 23:00 Intake Total 120 ml 200 ml Output Total 350 ml 800 ml Balance -230 ml -600 ml Intake Oral 120 ml 200 ml Output Urine Total 350 ml 800 ml # Voids 1 # Bowel Movements 0 Result Diagram: 09/20/17 0425 09/20/17 0425 Imaging Last Impressions Chest X-Ray 09/18/17 0000 Signed Impressions: Service Date/Time: August 21:09 - CONCLUSION: Mild hazy infiltrate in the left lower lung Ravi Villarreal MD Head CT 09/16/17 0000 Signed Impressions: Service Date/Time: Saturday, September 16, 2017 17:48 - CONCLUSION: No acute intracranial abnormality. Pansinusitis. Ravi Head MD Brain MRI 09/16/17 0000 Signed Impressions: Service Date/Time: Saturday, September 16, 2017 21:45 - CONCLUSION: Chronic white matter changes. No acute intracranial abnormality demonstrated. Ravi Head MD Abdomen/Pelvis CT 09/16/17 0000 Signed Impressions: Service Date/Time: Saturday, September 16, 2017 21:58 - CONCLUSION: 1. No acute abnormality. 2. Large bladder wall mass again demonstrated, measures larger than before. 3. Evidence of chronic pancreatitis. No acute inflammatory changes are seen. 4. Previous cholecystectomy. Ravi Head MD Objective Remarks GENERAL: NAD SKIN: Warm and dry. HEAD: Normocephalic. EYES: No scleral icterus. No injection or drainage. NECK: Supple, trachea midline. No JVD or lymphadenopathy. CARDIOVASCULAR: Regular rate and rhythm without murmurs, gallops, or rubs. RESPIRATORY: Breath sounds equal bilaterally. No accessory muscle use. GASTROINTESTINAL: Abdomen soft, non-tender, nondistended. MUSCULOSKELETAL: No cyanosis, or edema. BACK: Nontender without obvious deformity. No CVA tenderness. Procedures No invasive procedures. A/P Problem List: (1) Bladder mass ICD Code: N32.89 - Other specified disorders of bladder Status: Acute (2) Altered mental status ICD Code: R41.82 - Altered mental status, unspecified Status: Resolved (3) Urinary tract infection ICD Code: N39.0 - Urinary tract infection, site not specified (4) COPD (chronic obstructive pulmonary disease) ICD Code: J44.9 - Chronic obstructive pulmonary disease Status: Chronic Assessment and Plan 67-year-old male admitted secondary to metabolic encephalopathy related to urinary tract infection. 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 Metabolic encephalopathy related to urinary tract infection -resolved Continue supportive care Acute respiratory failure found to have mild hazy infiltrate on the left lower lung. Continues on Augmentin to complete treatment course. Maintain oxygen saturation above 92% Urinary tract infection Growing Klebsiella pansensitive. Continue Augmentin to complete course Urothelial cancer CT with bladder mass. 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 Diabetes mellitus type 2 A1c 8.9 Currently on Levemir 5 units every 12 hours, sliding-scale insulin COPD Continue duo nebs DVT prophylaxis Continue SCDs. lovenox Problem Qualifiers (1) Altered mental status: Qualified Codes: R41.82 - Altered mental status, unspecified Jacek Valverde MD Sep 23, 2017 13:20
[2017-09-24] VITALS: BP 108/63; PULSE 92; RESP 18; TEMP 98.4
[2017-09-24] MEDS: RESP: ALBUTEROL 2.5 MG/IPRATROPIUM 0.5 MG NEB (SCH) NEB ×2 (01:43→07:47)
[2017-09-24 01:46] VITALS: O2SAT 93
[2017-09-24 04:00] VITALS: BP 108/64; PULSE 87; RESP 16; TEMP 97.6; O2SAT 96
[2017-09-24] MEDS: LORazepam 1 MG TAB PO SCH (05:46)
[2017-09-24 07:47] VITALS: O2SAT 99
[2017-09-24 08:00] VITALS: BP 131/72; PULSE 92; RESP 20; TEMP 98.2; O2SAT 93
[2017-09-24] MEDS: INSULIN ASPART SUPPLEMENTAL SCALE SQ SCH (08:00)
[2017-09-24] MEDS: INSULIN DETEMIR 100 UNITS/ML VIAL SQ SCH (09:00)
[2017-09-24] MEDS: BUDESONIDE-FORMOTEROL 160/4.5 MCG INHALER INH SCH (09:00)
[2017-09-24] MEDS: ENOXAPARIN SODIUM 40 MG/0.4 ML SYRINGE SQ SCH (09:25)
[2017-09-24] MEDS: PANTOPRAZOLE SOD 40 MG DELAYED RELEASE TAB PO SCH (09:25)
[2017-09-24] MEDS: LACTOBACILLUS ACIDOPHILUS TAB PO SCH (09:25)
[2017-09-24] MEDS: ZIPRASIDONE HCL 40 MG CAP PO SCH (09:25)
[2017-09-24] MEDS: HALOPERIDOL LACTATE ORAL CONC 10 MG/5 ML CUP PO SCH (09:25)
[2017-09-24] MEDS: AMOXICILLIN/CLAVULANATE K 875 MG TAB PO SCH (09:25)
[2017-09-24] MEDS: DILTIAZEM HCL 30 MG TAB PO SCH (09:25)
--- NOTE | 2017-09-24 11:06 | HHI.PR ---
Subjective Remarks Follow-up metabolic encephalopathy/catatonic disorder 09/23/17-patient seen and examined, not talking much however denies any shortness of breath 09/24/14-patient seen and examined, patient stable and eating breakfast. Denies any acute complaints. Objective Vitals Vital Signs Date Time Temp Pulse Resp B/P (MAP) Pulse Ox O2 Delivery O2 Flow Rate FiO2 09/24/17 08:00 98.2 92 20 131/72 (91) 93 09/24/17 07:47 99 Nasal Cannula 3.00 09/24/17 04:00 97.6 87 16 108/64 (79) 96 09/24/17 03:46 93 Nasal Cannula 3.00 09/24/17 02:52 93 3.00 09/24/17 02:00 96 Simple Mask 6.00 09/24/17 01:46 93 Simple Mask 6.00 09/24/17 01:30 90 Simple Mask 6.00 09/24/17 01:15 88 3.00 09/24/17 01:00 86 Nasal Cannula 2.00 09/24/17 00:00 98.4 92 18 108/63 (78) 09/23/17 20:15 Nasal Cannula 2.00 09/23/17 20:05 95 Nasal Cannula 3.00 09/23/17 20:00 98.9 109 18 140/60 (86) 93 09/23/17 18:44 98 09/23/17 16:00 98.2 100 20 130/68 (88) 91 09/23/17 12:00 97.8 103 20 150/72 (98) 92 I/O 09/23/17 09/23/17 09/23/17 09/24/17 09/24/17 09/24/17 07:00 15:00 23:00 07:00 15:00 23:00 Intake Total 90 ml Output Total 400 ml Balance 90 ml -400 ml Intake Oral 90 ml Output Urine Total 400 ml # Voids 1 # Bowel Movements 0 Result Diagram: 09/20/1742409/20/17424 Objective Remarks GENERAL: NAD SKIN: Warm and dry. HEAD: Normocephalic. EYES: No scleral icterus. No injection or drainage. NECK: Supple, trachea midline. No JVD or lymphadenopathy. CARDIOVASCULAR: Regular rate and rhythm without murmurs, gallops, or rubs. RESPIRATORY: Breath sounds equal bilaterally. No accessory muscle use. GASTROINTESTINAL: Abdomen soft, non-tender, nondistended. MUSCULOSKELETAL: No cyanosis, or edema. BACK: Nontender without obvious deformity. No CVA tenderness. Procedures No invasive procedures. A/P Problem List: (1) Bladder mass ICD Code: N32.89 - Other specified disorders of bladder Status: Acute (2) Altered mental status ICD Code: R41.82 - Altered mental status, unspecified Status: Resolved (3) Urinary tract infection ICD Code: N39.0 - Urinary tract infection, site not specified (4) COPD (chronic obstructive pulmonary disease) ICD Code: J44.9 - Chronic obstructive pulmonary disease Status: Chronic Assessment and Plan 67-year-old male admitted secondary to metabolic encephalopathy related to urinary tract infection. 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 Metabolic encephalopathy related to urinary tract infection -resolved Continue supportive care Acute respiratory failure found to have mild hazy infiltrate on the left lower lung. Continues on Augmentin to complete treatment course. Maintain oxygen saturation above 92% Urinary tract infection Growing Klebsiella pansensitive. Continue Augmentin to complete course Urothelial cancer CT with bladder mass. 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 Diabetes mellitus type 2 A1c 8.9 Currently on Levemir 5 units every 12 hours, sliding-scale insulin COPD Continue duo nebs DVT prophylaxis Continue SCDs. Lovenox Problem Qualifiers (1) Altered mental status: Qualified Codes: R41.82 - Altered mental status, unspecified Jacek Valverde MD Sep 24, 2017 11:06
--- NOTE | 2017-09-24 11:27 | HHI.DS ---
Discharge Summary Admission Date Sep 18, 2017 at 21:40 Discharge Date: Sep 24, 2017 Admitting Diagnosis altered mental status, schizophrenia (1) Bladder mass ICD Code: N32.89 - Other specified disorders of bladder Status: Acute (2) Altered mental status ICD Code: R41.82 - Altered mental status, unspecified Status: Resolved (3) Urinary tract infection ICD Code: N39.0 - Urinary tract infection, site not specified (4) COPD (chronic obstructive pulmonary disease) ICD Code: J44.9 - Chronic obstructive pulmonary disease Status: Chronic Procedures No invasive procedures. Brief History - From Admission 67-year-old male with a past medical history significant for paranoid schizophrenia with behavioral disturbances, recently diagnosed urothelial cancer , dementia, type 2 diabetes mellitus, COPD, A. fib on ASA, hyperlipidemia and hypertension was brought to the emergency department via back for evaluation of cold-like symptoms. The patient will track with his eyes to voice however does not follow commands and does not answer questions. No significant lab abnormalities, patient with hyperkalemia of 5.5. CBC/BMP: 09/20/17 0425 09/20/17 0425 Significant Findings Laboratory Tests Test 09/21/17 21:10 Hemoglobin A1c 8.9 % (4.3-6.0) Imaging Last Impressions Chest X-Ray 09/18/17 0000 Signed Impressions: Service Date/Time: August 21:09 - CONCLUSION: Mild hazy infiltrate in the left lower lung Ravi Villarreal MD Head CT 09/16/17 0000 Signed Impressions: Service Date/Time: Saturday, September 16, 2017 17:48 - CONCLUSION: No acute intracranial abnormality. Pansinusitis. Ravi Head MD Brain MRI 09/16/17 0000 Signed Impressions: Service Date/Time: Saturday, September 16, 2017 21:45 - CONCLUSION: Chronic white matter changes. No acute intracranial abnormality demonstrated. Ravi Head MD Abdomen/Pelvis CT 09/16/17 0000 Signed Impressions: Service Date/Time: Saturday, September 16, 2017 21:58 - CONCLUSION: 1. No acute abnormality. 2. Large bladder wall mass again demonstrated, measures larger than before. 3. Evidence of chronic pancreatitis. No acute inflammatory changes are seen. 4. Previous cholecystectomy. Ravi Head MD PE at Discharge GENERAL: NAD SKIN: Warm and dry. HEAD: Normocephalic. EYES: No scleral icterus. No injection or drainage. NECK: Supple, trachea midline. No JVD or lymphadenopathy. CARDIOVASCULAR: Regular rate and rhythm without murmurs, gallops, or rubs. RESPIRATORY: Breath sounds equal bilaterally. No accessory muscle use. GASTROINTESTINAL: Abdomen soft, non-tender, nondistended. MUSCULOSKELETAL: No cyanosis, or edema. BACK: Nontender without obvious deformity. No CVA tenderness. Hospital Course While in the hospital, patient was treated for: Metabolic encephalopathy related to urinary tract infection -resolved Continue supportive care Acute respiratory failure found to have mild hazy infiltrate on the left lower lung. Started on Augmentin to complete treatment course. Maintain oxygen saturation above 92% Urinary tract infection Growing Klebsiella pansensitive. Started on Augmentin to complete course Urothelial cancer CT with bladder mass. 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 Diabetes mellitus type 2 A1c 8.9 Treated with Levemir 5 units every 12 hours, sliding-scale insulin COPD Treated with duo nebs DVT prophylaxis Continue SCDs. Lovenox Pt Condition on Discharge: Good Discharge Disposition: Discharge to SNF Discharge Time: > 30 minutes Discharge Instructions DIET: Follow Instructions for: Heart Healthy Diet Activities you can perform: Regular-No Restrictions Jacek Valverde MD Sep 24, 2017 11:27
== END 2017-09-24 13:06 | DRG 70 ==
LOC: NEPE 14:41 → NEDA 19:13 → NEPGCP 22:48 → OBSVTOIN 09-18 21:40 → HIMN 09-18 22:45 → N04B 09-21 00:17
PROVIDERS: ADMIT Hospitalist; ATTEND Hospitalist
DX: G93.41 Metabolic encephalopathy (principal); J96.00 Acute respiratory failure, unspecified whether with hypoxia or hypercapnia; J18.9 Pneumonia, unspecified organism; C68.9 Malignant neoplasm of urinary organ, unspecified; N32.89 Other specified disorders of bladder; F03.90 Unspecified dementia, unspecified severity, without behavioral disturbance, psychotic disturbance, mood disturbance, and anxiety; I48.91 Unspecified atrial fibrillation; J44.0 Chronic obstructive pulmonary disease with (acute) lower respiratory infection; N39.0 Urinary tract infection, site not specified; B96.1 Klebsiella pneumoniae [K. pneumoniae] as the cause of diseases classified elsewhere; F20.0 Paranoid schizophrenia; F06.1 Catatonic disorder due to known physiological condition; E11.9 Type 2 diabetes mellitus without complications; Z79.84 Long term (current) use of oral hypoglycemic drugs; E87.5 Hyperkalemia; E78.5 Hyperlipidemia, unspecified; I10 Essential (primary) hypertension; Z79.82 Long term (current) use of aspirin; F17.210 Nicotine dependence, cigarettes, uncomplicated; R26.9 Unspecified abnormalities of gait and mobility
CPT/HCPCS: 36600; 70450; 70551; 71010; 74176; 80048; 80053; 81001; 82550; 82552; 82805; 82948; 83036; 83605; 83735; 83880; 84484; 85025; 85610; 85730; 87040; 87077; 87086; 87186; 87641; 87804; 93005; 94150; 94640; 94664; 94667; 94668; 96365; 96372; G0378; J0456; J0696; J1650; J1815; J2060; J7040; J7050